=== PATIENT | female | born 1940 | race Caucasian/White ===

== ENCOUNTER 2016-12-07 08:41 | Outpatient (CLI) | payer MEDICARE ==
--- NOTE | 2016-12-09 10:08 | PET ---
NUCLEAR MEDICINE FDG PET CT: (Positron Emission Tomography) DATE: 12/07/16 HISTORY: 76-year-old female with lymphoma for restaging. COMPARISON: 03/21/15. TECHNIQUE: IV injection F-18 Fluorodeoxyglucose (FDG) dose: 14.0 mCi PET and attenuation-correction CT performed from skull base to proximal thighs. FINDINGS: SUV (standard uptake value) numbers given are maximum SUV's: Previously, the study was degraded because of much activity throughout multiple muscles of the body. There is significantly less muscle activity on the current PET scan compared to the previous one. T here is still muscle activity in certain regions. However, the current study is degraded by breathin g motion, especially of the intra-abdominal contents. The previously demonstrated hypermetabolic region in the spleen has resolved. Right adrenal adenoma is again noted. Mild cardiomegaly. There is a region of increased FDG localization in an infiltrate- like lesion in the subcutaneous superficial fat anterior to the right lower quadrant musculature, pr esumably representing a site of inflammation or infection. There are no hypermetabolic lymph nodes i n the neck, chest, abdomen, or pelvis. No suspicious hypermetabolic activity in other organs. IMPRESSION: 1. Interval resolution of the previously demonstrated hypermetabolic focus in the spleen. 2. No evidence of active lymphoma on the current study. VISHAL Treadwell POS: [facility]
== END 2016-12-07 08:42 | disposition home or self-care (01) ==
LOC: PET 08:41
PROVIDERS: ATTEND Internal Medicine Hematology & Oncology
DX: C82.90 Follicular lymphoma, unspecified, unspecified site (principal)
CPT/HCPCS: 78815; A9552

== ENCOUNTER 2017-02-12 15:09 | Outpatient (CLI) | payer MEDICARE ==
--- NOTE | 2017-02-12 17:17 | RAD ---
LUMBAR SPINE TWO VIEW 02/12/17 HISTORY: M46.46 discitis, unspecified. COMPARISON: None. FINDINGS: Mild dextroscoliosis of the lumbar spine. There is anterolisthesis of L4 over L5, grade I, approximat marion 7 mm. Moderate degenerative disc space disease throughout the lumbar spine. No acute fracture is appreciated. Chronic appearing end plate height loss at T12. Severe vascular calcification of the aorta. IMPRESSION: 1. Moderate to severe degenerative changes. 2. Grade I 7 mm anterolisthesis L4 over L5 due to facet arthropathy. 3. Extensive vascular calcifications of the aorta. POS: [facility]
--- NOTE | 2017-02-12 17:19 | RAD ---
THORACIC SPINE THREE VIEW 02/12/17 HISTORY: M46.46 discitis, unspecified. COMPARISON: None. FINDINGS: No acute fracture or malalignment of the thoracic spine. Central venous catheter is in place with tip at the SVC/right atrial junction. Multiple median sternotomy wires. Heart size is enlarged. IMPRESSION: No displaced compression fracture of the thoracic spine although the upper thoracic spine evaluation is limited. POS: [facility]
== END 2017-02-12 15:10 | disposition home or self-care (01) ==
LOC: TBSIIMAG 15:09
PROVIDERS: ATTEND Surgery
DX: M46.46 Discitis, unspecified, lumbar region (principal); M47.816 Spondylosis without myelopathy or radiculopathy, lumbar region; M43.16 Spondylolisthesis, lumbar region; I70.0 Atherosclerosis of aorta
CPT/HCPCS: 72072; 72100

== ENCOUNTER 2018-02-14 02:31 | Inpatient (IN) | payer MEDICARE ==
[2018-02-14 03:30] LABS: #Eosinphils 0.4 thou/uL (0.0-0.7); #Lymphocytes 0.9 thou/uL (1.20-3.40); #Monocytes 0.8 thou/uL (0.11-0.59); #Neutrophils 6.7 thou/uL (1.40-6.50); %Basophils 0.4 % (0.0-1.0); %Eosinophils 4.4 % (0.0-10.0); %Lymphocytes 10.4 % (21.0-51.0); %Monocytes 8.5 % (0.0-10.0); %Neutrophils 76.2 % (42.0-75.0); Hemoglobin 8.6 g/dL (12.0-16.0); Mean Corpuscular HGB CONC 33.1 g/dL (32.0-36.0); Mean Corpuscular Hemoglobin 31.5 pg (27.0-31.0); Mean Corpuscular Volume 95.3 fL (78.0-98.0); Mean Platelet Volume 8.5 fL (7.4-10.4); Platelet Count 220 thou/uL (130-400); RBC Distribution Width 14.1 % (11.5-14.5); Red Blood Cell (RBC) Count 2.74 mill/uL (4.20-5.40); White Blood Cell (WBC) Count 8.7 thou/uL (4.8-10.8)
[2018-02-14 03:45] LABS: Prothrombin Time 41.5 SEC (12.0-14.7)
[2018-02-14 03:46] LABS: PTT 65.5 SEC (22.9-36.1)
[2018-02-14 03:51] LABS: INR-International Normal Ratio 4.3
[2018-02-14 03:52] LABS: ALT (SGPT) 22 U/L (8-55); AST (SGOT) 31 U/L (5-34); Albumin 3.9 g/dL (3.4-4.8); Alkaline Phosphatase 111 U/L (40-150); Anion Gap 15 mmol/L (10-20); BUN (Urea Nitrogen) 59 mg/dL (9.8-20.1); Bilirubin, Total 0.3 mg/dL (0.2-1.2); CK (CPK) 390 U/L (29-168); Calc. Creatinine Clearance 0 mL/min (70-130); Calcium 8.9 mg/dL (7.8-10.44); Carbon Dioxide 27 mmol/L (23-31); Chloride 101 mmol/L (98-107); Estimated GFR-MDRD 19; Globulin 2.5 g/dL (2.4-3.5); Glucose 115 mg/dL (83-110); Magnesium 2.1 mg/dL (1.6-2.6); Potassium 3.6 mmol/L (3.5-5.1); Protein, Total 6.4 g/dL (6.0-8.3); Sodium 139 mmol/L (136-145)
[2018-02-14 04:11] LABS: CKMB 4.9 ng/mL (0-6.6)
[2018-02-14] MEDS ORDERED: Furosemide 40 MG/4 ML VIAL ONE (04:47)
[2018-02-14 05:33] LABS: Bilirubin Negative (Negative); Blood, Urine Negative (Negative); Clarity CLEAR (Clear); Glucose, Urine (Dipstick) Negative (Negative); Leukocyte Trace (Negative); Nitrite Negative (Negative); Protein, Urine (Dipstick) Negative (Neg-Trace); Specific Gravity, Urine 1.005 (1.002-1.036); Urobilinogen 0.2 mg/dL (0.2-1.0)
[2018-02-14 05:36] LABS: Bacteria/HPF None Seen HPF (None Seen); Hyaline Casts/LPF 0-3 HYALINE CAST LPF (0-3 Hyaline); RBC/HPF None Seen HPF (0-3); Squamous Epithelial None Seen HPF (0-3); WBC/HPF None Seen HPF (0-3)
[2018-02-14] MEDS ORDERED: Acetaminophen 325 MG TAB PO PRN ×2 (06:10→11:33)
[2018-02-14] MEDS ORDERED: Ondansetron ODT 4 MG TAB SL PRN (06:10)
[2018-02-14] MEDS ORDERED: Ondansetron PF 4 MG/2 ML Vial IVP PRN (06:10)
[2018-02-14 06:24] VITALS: BMI 39.6
[2018-02-14 06:54] LABS: Troponin I 0.042 ng/mL (< 0.028)
--- NOTE | 2018-02-14 09:54 | RAD ---
PORTABLE UPRIGHT FRONTAL CHEST RADIOGRAPH: 02/14/2018 HISTORY: Congestive heart failure. COMPARISON: 12/25/2017 FINDINGS: A metallic structure overlies the cardiac valve, and midline sternotomy wires are noted, stable. Mil d pulmonary vascular congestion/interstitial prominence. No pneumothorax, pleural fluid, lobar conso lidation, or alveolar edema. IMPRESSION: Mild interstitial prominence with no focal consolidation or alveolar edema. POS: YESSICA
[2018-02-14 10:08] LABS: Troponin I 0.038 ng/mL (< 0.028)
[2018-02-14] MEDS ORDERED: Guaifenesin DM 100-10/5 ML UDCUP PO PRN (11:33)
[2018-02-14] MEDS ORDERED: Senokot S 8.6-50 MG TAB PO PRN (11:33)
[2018-02-14] MEDS: Levofloxacin 750 mg/D5W 500 MG in Premix Bag 1 BAG IVPB SCH (12:58)
[2018-02-14] MEDS ORDERED: Carvedilol 3.125 MG TAB PO SCH (13:15)
--- NOTE | 2018-02-14 14:07 | HP ---
REASON FOR ADMISSION: COPD exacerbation, possible CHF exacerbation, acute kidney injury, demand ischemia. HISTORY OF PRESENTING ILLNESS: The patient gives history of having shortness of breath, cough, and cough with altered expectoration from last three days. She called Dr. Silvestre on , that is her risk control officer. She normally takes torsemide 20 mg daily and was asked to take 80 mg daily. She took this for 2 days with no relief. The patient was getting concerned as she could not lie down at home without getting short of breath. No complaints of chest pain, palpitations, or PND. She has not had any fever at home. The patient has known history of COPD and has been taking multiple nebulizations at home with no relief. PAST MEDICAL AND SURGICAL HISTORY: History of hypertension, COPD, dyslipidemia. History of nephrectomy on the right, history of oophorectomy, right knee surgery, right wrist surgery, mitral valve replacement with a mechanical valve, history of MediPort placement on the right with removal, insomnia, obesity. CURRENT MEDICATIONS: The patient is on, 1. Aspirin 81 mg p.o. daily. 2. Atorvastatin 40 mg p.o. at bedtime. 3. Calcium with vitamin D one tab once daily. 4. Coreg 3.125 mg p.o. twice daily. 5. [place]-3 fatty acid one capsule p.o. at bedtime. 6. Protonix 40 mg p.o. daily. 7. Pramipexole 0.5 mg p.o. at bedtime. 8. Prazosin 1 mg p.o. at bedtime. 9. Seroquel 300 mg p.o. at bedtime. 10. Zoloft 25 mg daily. 11. Torsemide 20 mg daily, but has been taking 80 mg daily for the last 2 days. 12. Coumadin 5 mg daily. 13. Vitamin C 500 mg p.o. daily. 14. Ferrous sulfate 325 mg p.o. twice daily. ALLERGIES: ALLERGIC TO CODEINE. PERSONAL HISTORY: Does not abuse alcohol or drugs. Smoked for 57 years, quit in 2009. The patient says she has 57% lung capacity left at present. She follows up with Dr. Castellon. She lives alone. FAMILY HISTORY: Mother at the age of 86 years from old age and natural causes. Father at the age of 57 years. He has had history of multiple sclerosis. Code status is full. Power of assistant prosecuting attorney is her son, Mr. Lopez. REVIEW OF SYSTEMS: CONSTITUTIONAL: Negative for weight loss or gain, ability to conduct usual activities. SKIN: Negative for rash, itching. EYES: Negative for double vision, pain. ENT/MOUTH: Negative for nose bleeding, neck stiffness, pain, tenderness. CARDIOVASCULAR: Negative for palpitations, dyspnea on exertion, orthopnea. RESPIRATORY: Negative for shortness of breath, wheezing, cough, hemoptysis, fever or night sweats. GASTROINTESTINAL: Negative for poor appetite, abdominal pain, heartburn, nausea, vomiting, constipation, or diarrhea. GENITOURINARY: Negative for urgency, frequency, dysuria, nocturia. MUSCULOSKELETAL: Negative for pain, swelling. NEUROLOGIC/PSYCHIATRIC: Negative for anxiety, depression. ALLERGY/IMMUNOLOGIC: Negative for skin rash, bleeding tendency. PHYSICAL EXAMINATION: GENERAL: The patient is a 77-year-old female, who is currently not in any acute distress. VITAL SIGNS: Blood pressure 124/60, pulse 84 per minute, respiratory rate 20 per minute, temperature 98.1 degrees Fahrenheit, saturating 96% on room air. NECK: Supple. No elevated JVD. HEENT: Eyes, extraocular muscles intact. Pupils are reacting to light. Oral cavity, mucous membranes are moist. No exudates or congestion. CARDIOVASCULAR: S1, S2 heard. Regular rhythm. RESPIRATORY: Air entry 1+ bilateral. Scattered wheezes plus bilateral rales plus in the infrascapular area. ABDOMEN: Soft. Bowel sounds heard. No tenderness, rigidity, or guarding. EXTREMITIES: There is peripheral edema. No calf tenderness. VASCULAR: Peripheral pulses 1+ bilateral. No ischemic ulcerations or gangrene. CENTRAL NERVOUS SYSTEM: No gross focal deficits noted. The patient is alert, awake, and oriented. PSYCHIATRIC: [facility] psychiatric system. The patient's mood is euthymic. No hallucinations or delusions. DIAGNOSTIC DATA: EKG done shows normal sinus rhythm at 94 beats per minute. Chest x-ray done shows mild pulmonary vascular congestion. LABORATORY DATA: White count of 8.7, H and H 8.6 and 26, platelet count 220 with 76% neutrophils. PT and INR 41 and 4.3, PTT 65. BUN 59, creatinine 2.4. Serum bicarb 27, serum glucose 115. Liver enzymes within normal limits. Troponin I is indeterminate, peaking up to 0.04. CK-MB 4.9. BNP is 205. CLINICAL IMPRESSION AND PLAN: The patient will be admitted to telemetry for acute chronic obstructive pulmonary exacerbation, acute on chronic congestive heart failure exacerbation likely diastolic dysfunction. She also has acute kidney injury and will be closely monitored with diuresis now. She will be on Lasix 40 mg IV q.12 along with Levaquin, Solu-Medrol, and DuoNeb's. We will continue her aspirin, Lipitor, Coreg, prazosin, pramipexole, and Seroquel as before. Echo with 2D Doppler for LV function will be obtained. Urine and blood cultures will be obtained as well. We will continue to closely monitor her on telemetry. Job ID: [id number]
[2018-02-14] MEDS: Furosemide 40 MG/4 ML VIAL SLOW IVP SCH (15:10)
[2018-02-14] MEDS ORDERED: ALPRAZolam 0.25 MG TAB PO SCH (19:15)
[2018-02-14] MEDS: Fish Oil 1,000 MG CAP PO SCH (20:41)
[2018-02-14] MEDS: Pramipexole Di-HCl 0.25 MG TAB PO SCH (20:41)
[2018-02-14] MEDS: Multivitamin W/ Minerals 1 TAB PO SCH (20:41)
[2018-02-14] MEDS: Ferrous Sulfate 325 MG TAB PO SCH (20:41)
[2018-02-14] MEDS: Prazosin HCl 1 MG CAP PO SCH (20:42)
[2018-02-14] MEDS: Carvedilol 3.125 MG TAB PO SCH (20:42)
[2018-02-14] MEDS: Atorvastatin Calcium 40 MG TAB PO SCH (20:42)
[2018-02-14] MEDS ORDERED: MV MN PO SCH (21:00)
[2018-02-14] MEDS ORDERED: [UNRECOGNIZED DRUG - OTHER] PO SCH (21:00)
[2018-02-14] MEDS ORDERED: FOLIC ACID PO SCH (21:00)
[2018-02-14] MEDS ORDERED: CALCIUM PO SCH (21:00)
[2018-02-14] MEDS ORDERED: PRAMIPEXOLE DI HCL 0.5 MG PO SCH (21:00)
[2018-02-14] MEDS ORDERED: Fish Oil 1,000 MG CAP PO SCH (21:00)
[2018-02-14] MEDS ORDERED: VIT K PO SCH (21:00)
[2018-02-14] MEDS ORDERED: Escitalopram Oxalate 20 mg Tablet PO SCH (21:00)
[2018-02-15] MEDS: Furosemide 40 MG/4 ML VIAL SLOW IVP SCH ×2 (04:57→14:32)
[2018-02-15 05:52] LABS: #Lymphocytes 0.5 thou/uL (1.20-3.40); #Monocytes 0.1 thou/uL (0.11-0.59); #Neutrophils 7.5 thou/uL (1.40-6.50); %Lymphocytes 6.7 % (21.0-51.0); %Monocytes 1.4 % (0.0-10.0); %Neutrophils 91.9 % (42.0-75.0); Hemoglobin 8.5 g/dL (12.0-16.0); Mean Corpuscular HGB CONC 32.6 g/dL (32.0-36.0); Mean Corpuscular Volume 94.9 fL (78.0-98.0); Mean Platelet Volume 9.1 fL (7.4-10.4); Platelet Count 227 thou/uL (130-400); RBC Distribution Width 14.2 % (11.5-14.5); Red Blood Cell (RBC) Count 2.75 mill/uL (4.20-5.40); White Blood Cell (WBC) Count 8.1 thou/uL (4.8-10.8)
[2018-02-15 05:54] LABS: INR-International Normal Ratio 2.4; Prothrombin Time 26.3 SEC (12.0-14.7)
[2018-02-15 05:55] LABS: PTT 51.2 SEC (22.9-36.1)
[2018-02-15 06:09] LABS: Anion Gap 15 mmol/L (10-20); BUN (Urea Nitrogen) 59 mg/dL (9.8-20.1); Calc. Creatinine Clearance 35 mL/min (70-130); Calcium 9.3 mg/dL (7.8-10.44); Carbon Dioxide 25 mmol/L (23-31); Chloride 100 mmol/L (98-107); Estimated GFR-MDRD 22; Glucose 165 mg/dL (83-110); Potassium 3.9 mmol/L (3.5-5.1); Sodium 136 mmol/L (136-145)
[2018-02-15] MEDS: Ascorbic Acid 500 mg Chewable Tablet PO SCH (09:21)
[2018-02-15] MEDS: Carvedilol 3.125 MG TAB PO SCH ×2 (09:21→21:55)
[2018-02-15] MEDS: Ferrous Sulfate 325 MG TAB PO SCH ×2 (09:21→21:57)
[2018-02-15] MEDS: PROVENTIL INHALER 6.7 G (200 INHALATIONS) INH SCH ×3 (10:41→22:20)
[2018-02-15] MEDS: Levofloxacin 750 mg/D5W 500 MG in Premix Bag 1 BAG IVPB SCH (11:48)
--- NOTE | 2018-02-15 12:40 | PDOC.PN ---
- Subjective Encounter Start Date: 02/15/18 Encounter Start Time: 09:45 Subjective: feels better, wants to go home tomorrow -: is amb in room - Objective Resuscitation Status - Order Detail: 02/14/18 11:27 Resuscitation Status Routine Resuscitation Status: FULL: Full Resuscitation Discussed with: ELENA clancy son Mr.Jeffery RICKS Reviewed: Yes Vital Signs & Weight: Vital Signs (12 hours) Temp Pulse Pulse Pulse Resp BP BP 02/15/18 11:44 97.9 F 90 20 02/15/18 10:41 93 20 02/15/18 09:50 92 110 H 129/58 L 140/107 H 02/15/18 07:27 97.8 F 90 19 02/15/18 04:30 97.8 F 86 18 BP Pulse Ox Pulse Ox Pulse Ox 02/15/18 11:44 116/99 H 96 02/15/18 10:41 02/15/18 09:50 99 98 02/15/18 07:27 129/88 94 L 02/15/18 04:30 123/56 L 95 Weight Admit Weight 231 lb 4.8 oz Weight 232 lb 4.8 oz I&O: 02/14/18 02/15/18 02/16/18 06:59 06:59 06:59 Intake Total 960 Output Total 550 2400 Balance -550 -1440 Result Diagrams: 02/15/18 04:25 02/15/18 04:25 Phys Exam - Physical Examination HEENT: PERRLA, moist MMs Neck: no JVD, supple Respiratory: no rales wheezes+ Cardiovascular: RRR, no significant murmur Gastrointestinal: soft, non-tender, positive bowel sounds Musculoskeletal: pulses present, edema present Neurological: non-focal, moves all 4 limbs Psychiatric: normal affect, A&O x 3 Dx/Plan (1) Acute exacerbation of CHF (congestive heart failure) Code(s): I50.9 - HEART FAILURE, UNSPECIFIED Status: Acute Qualifiers: Heart failure type: systolic Qualified Code(s): I50.23 - Acute on chronic systolic (congestive) heart failure Comment: ef of 45%, class C (2) COPD exacerbation Code(s): J44.1 - CHRONIC OBSTRUCTIVE PULMONARY DISEASE W (ACUTE) EXACERBATION Status: Acute (3) CHERIE (acute kidney injury) Code(s): N17.9 - ACUTE KIDNEY FAILURE, UNSPECIFIED Status: Acute (4) CAD (coronary artery disease) Code(s): I25.10 - ATHSCL HEART DISEASE OF [place] CORONARY ARTERY W/O ANG PCTRS Status: Chronic Qualifiers: Coronary Disease-Associated Artery/Lesion type: [place] artery [place] vs. transplanted heart: [place] heart Associated angina: without angina Qualified Code(s): I25.10 - Atherosclerotic heart disease of [place] coronary artery without angina pectoris (5) H/O unilateral nephrectomy Code(s): Z90.5 - ACQUIRED ABSENCE OF KIDNEY Status: Chronic Comment: right (6) Dyslipidemia Code(s): E78.5 - HYPERLIPIDEMIA, UNSPECIFIED Status: Chronic (7) CKD (chronic kidney disease) Code(s): N18.9 - CHRONIC KIDNEY DISEASE, UNSPECIFIED Status: Chronic Qualifiers: Chronic kidney disease stage: stage 3 (moderate) Qualified Code(s): N18.3 - Chronic kidney disease, stage 3 (moderate) Comment: stable (8) H/O mitral valve replacement with mechanical valve Code(s): Z95.2 - PRESENCE OF PROSTHETIC HEART VALVE Status: Chronic Comment : continue anticoagulation, target INR 2.5-3.5 - Plan diuresing well -: to continue steroids, inhaler per pt choice, levaquin -: asp, coreg, lipitor, start coumadin from evening -: renal function holding up -: to amb as tolerated * . Review of Systems - Medications/Allergies Allergies/Adverse Reactions: Allergies Allergy/AdvReac Type Severity Reaction Status Date / Time codeine Allergy Verified 02/14/18 06:28 Medications: Current Medications Acetaminophen (Tylenol) 650 mg PO Q4H PRN PRN Reason: Headache/Fever/Mild Pain (1-3) Albuterol Sulfate (Proventil Hfa) 2 puff INH [id number] LISA Last Admin: 02/15/18 10:41 Dose: 2 puff Albuterol/Ipratropium (Duoneb) 3 ml NEB Q6H PRN PRN Reason: SOB Last Admin: 02/14/18 10:06 Dose: 3 ml Ascorbic Acid (Vitamin C) 500 mg PO DAILY LISA Last Admin: 02/15/18 09:21 Dose: 500 mg Aspirin (Aspirin Chewable) 81 mg PO DAILY LISA Last Admin: 02/15/18 09:21 Dose: 81 mg Atorvastatin Calcium (Lipitor) 40 mg PO [facility] Last Admin: 02/14/18 20:42 Dose: 40 mg Carvedilol (Coreg) 3.125 mg PO BID [facility] Last Admin: 02/15/18 09:21 Dose: 3.125 mg Ferrous Sulfate (Feosol) 325 mg PO BID [facility] Last Admin: 02/15/18 09:21 Dose: 325 mg Fish Oil (Fish Oil) 1,000 mg PO [facility] Last Admin: 02/14/18 20:41 Dose: 1,000 mg Furosemide (Lasix) 40 mg SLOW IVP 0600,1400 [facility] Last Admin: 02/15/18 04:57 Dose: 40 mg Guaifenesin/Dextromethorphan (Robitussin Dm) 15 ml PO Q4H PRN PRN Reason: Cough Levofloxacin 500 mg/ Device 100 mls @ 100 mls/hr IVPB Q24HR [facility] Last Admin: 02/15/18 11:48 Dose: 100 mls Iron/Minerals/Multivitamins (Theragran M) 1 tab PO [facility] Last Admin: 02/14/18 20:41 Dose: 1 tab Methylprednisolone Sodium Succinate (Solu-Medrol) 40 mg IVP Q6HR [facility] Last Admin: 02/15/18 11:48 Dose: 40 mg Pantoprazole Sodium (Protonix) 40 mg PO QAM [facility] Last Admin: 02/15/18 09:21 Dose: 40 mg Pramipexole Dihydrochloride (Mirapex) 0.5 mg PO [facility] Last Admin: 02/14/18 20:41 Dose: 0.5 mg Prazosin HCl (Minipress) 1 mg PO [facility] Last Admin: 02/14/18 20:42 Dose: 1 mg Quetiapine Fumarate (Seroquel) 300 mg PO [facility] Last Admin: 02/14/18 20:41 Dose: 300 mg Senna/Docusate Sodium (Senokot S) 2 tab PO BID PRN PRN Reason: Constipation Sertraline HCl (Zoloft) 25 mg PO DAILY [facility] Last Admin: 02/15/18 09:21 Dose: 25 mg Sodium Chloride (Flush - Normal Saline) 10 ml IVF Q12HR [facility] Last Admin: 02/15/18 09:32 Dose: 10 ml Sodium Chloride (Flush - Normal Saline) 10 ml IVF PRN PRN PRN Reason: Saline Flush Warfarin Sodium (Coumadin) 5 mg PO 1700 LISA
[2018-02-15] MEDS ORDERED: Warfarin Sodium 5 MG TAB PO SCH (17:00)
[2018-02-15] MEDS ORDERED: ALPRAZolam 0.5 MG TAB PO SCH (21:00)
[2018-02-15] MEDS: ALPRAZolam 0.25 MG TAB PO SCH (21:54)
[2018-02-15] MEDS: Prazosin HCl 1 MG CAP PO SCH (21:55)
[2018-02-15] MEDS: Multivitamin W/ Minerals 1 TAB PO SCH (21:56)
[2018-02-15] MEDS: Fish Oil 1,000 MG CAP PO SCH (21:56)
[2018-02-15] MEDS: Atorvastatin Calcium 40 MG TAB PO SCH (21:57)
[2018-02-15] MEDS: Pramipexole Di-HCl 0.25 MG TAB PO SCH (21:57)
[2018-02-16 05:32] LABS: INR-International Normal Ratio 1.9; Prothrombin Time 21.7 SEC (12.0-14.7)
[2018-02-16 05:33] LABS: PTT 40.4 SEC (22.9-36.1)
[2018-02-16 05:41] LABS: Anion Gap 16 mmol/L (10-20); BUN (Urea Nitrogen) 66 mg/dL (9.8-20.1); Calc. Creatinine Clearance 29 mL/min (70-130); Calcium 9.3 mg/dL (7.8-10.44); Carbon Dioxide 24 mmol/L (23-31); Chloride 100 mmol/L (98-107); Estimated GFR-MDRD 17; Glucose 175 mg/dL (83-110); Potassium 4.1 mmol/L (3.5-5.1); Sodium 136 mmol/L (136-145)
[2018-02-16] MEDS: Furosemide 40 MG/4 ML VIAL SLOW IVP SCH (05:58)
[2018-02-16] MEDS: PROVENTIL INHALER 6.7 G (200 INHALATIONS) INH SCH ×2 (06:06→11:34)
[2018-02-16 07:52] LABS: Hemoglobin 8.5 g/dL (12.0-16.0); Platelet Count 229 thou/uL (130-400)
[2018-02-16 08:25] VITALS: TEMP 98.7
[2018-02-16] MEDS: Ferrous Sulfate 325 MG TAB PO SCH (08:34)
[2018-02-16] MEDS: Carvedilol 3.125 MG TAB PO SCH (08:34)
[2018-02-16] MEDS: Ascorbic Acid 500 mg Chewable Tablet PO SCH (08:34)
--- NOTE | 2018-02-16 10:43 | PDOC.PN ---
- Subjective Encounter Start Date: 02/16/18 Encounter Start Time: 09:45 Subjective: no sob, feels better -: wants to go home - Objective Resuscitation Status - Order Detail: 02/14/18 11:27 Resuscitation Status Routine Resuscitation Status: FULL: Full Resuscitation Discussed with: ELENA is son Mr.Jeffery RICKS Reviewed: Yes Vital Signs & Weight: Vital Signs (12 hours) Temp Pulse Resp BP BP Pulse Ox 02/16/18 08:25 98.7 F 97 18 139/56 L 94 L 02/16/18 06:06 85 16 96 02/16/18 04:20 99.3 F 96 19 118/56 L 96 02/16/18 00:00 99.5 F 98 18 108/55 L 96 Weight Admit Weight 231 lb 4.8 oz Weight 231 lb 1.6 oz I&O: 02/15/18 02/16/18 02/17/18 06:59 06:59 06:59 Intake Total 960 786 Output Total 2400 Balance -1440 786 Result Diagrams: 02/16/18 07:33 02/16/18 04:36 Phys Exam - Physical Examination HEENT: PERRLA, moist MMs Neck: no JVD, supple Respiratory: no wheezing, no rales Cardiovascular: RRR, no significant murmur Gastrointestinal: soft, non-tender, positive bowel sounds Musculoskeletal: no edema, pulses present Neurological: non-focal, moves all 4 limbs Psychiatric: normal affect, A&O x 3 Dx/Plan (1) Acute exacerbation of CHF (congestive heart failure) Code(s): I50.9 - HEART FAILURE, UNSPECIFIED Status: Acute Qualifiers: Heart failure type: systolic Qualified Code(s): I50.23 - Acute on chronic systolic (congestive) heart failure Comment: ef of 45%, class C (2) COPD exacerbation Code(s): J44.1 - CHRONIC OBSTRUCTIVE PULMONARY DISEASE W (ACUTE) EXACERBATION Status: Acute (3) CHERIE (acute kidney injury) Code(s): N17.9 - ACUTE KIDNEY FAILURE, UNSPECIFIED Status: Acute (4) CAD (coronary artery disease) Code(s): I25.10 - ATHSCL HEART DISEASE OF [place] CORONARY ARTERY W/O ANG PCTRS Status: Chronic Qualifiers: Coronary Disease-Associated Artery/Lesion type: [place] artery [place] vs. transplanted heart: [place] heart Associated angina: without angina Qualified Code(s): I25.10 - Atherosclerotic heart disease of [place] coronary artery without angina pectoris (5) H/O unilateral nephrectomy Code(s): Z90.5 - ACQUIRED ABSENCE OF KIDNEY Status: Chronic Comment: right (6) Dyslipidemia Code(s): E78.5 - HYPERLIPIDEMIA, UNSPECIFIED Status: Chronic (7) CKD (chronic kidney disease) Code(s): N18.9 - CHRONIC KIDNEY DISEASE, UNSPECIFIED Status: Chronic Qualifiers: Chronic kidney disease stage: stage 3 (moderate) Qualified Code(s): N18.3 - Chronic kidney disease, stage 3 (moderate) Comment: stable (8) H/O mitral valve replacement with mechanical valve Code(s): Z95.2 - PRESENCE OF PROSTHETIC HEART VALVE Status: Chronic Comment : continue anticoagulation, target INR 2.5-3.5 - Plan d/w , his office will call her in 1 week for appt -: may dc home due to holidays and pt wishing to be home -: will have lab check when she sees who is aware of pt from prior f/u -: inr is 1.9, h/h low but stable -: meds reconciled for home use * .
[2018-02-16] MEDS: ALPRAZolam 0.25 MG TAB PO SCH (10:44)
[2018-02-16] MEDS ORDERED: Adacel (T-DAP) 0.5 ML SYRINGE IM ONE (11:00)
[2018-02-16 11:47] VITALS: BP 136/56
--- NOTE | 2018-02-16 14:43 | DIS ---
DATE OF ADMISSION: 02/14/2018 DATE OF DISCHARGE: 02/16/2018 DISCHARGE DISPOSITION: Home. PRIMARY DISCHARGE DIAGNOSES: Acute chronic obstructive pulmonary disease exacerbation; acute congestive heart failure exacerbation with mild systolic dysfunction and diastolic dysfunction with ejection fraction of 45%; acute kidney injury, which got worsened with diuresis, likely chronic kidney disease, stage 2 to 3 at baseline; coronary artery disease; history of prior right nephrectomy; dyslipidemia; mechanical mitral valve, on Coumadin. PROCEDURES DONE DURING HOSPITALIZATION: The patient had a chest x-ray done on the day of admission, which showed pulmonary vascular congestion. Echo with 2D Doppler showed ejection fraction of 40% to 45%, normally functioning mechanical valve in mitral position was seen. Blood cultures x2, no growth. Urine culture, no growth. H and H 8.5 and 26, MCV 94, platelet count 229. Discharge INR 1.9, on admission was 4.3. Discharge BUN and creatinine are 66 and 2.6 with serum bicarb of 24. Troponin I indeterminate peaking up to 0.04, CK-MB 4.9, TSH 1.1. Admitting BUN and creatinine were 59 and 2.4. BNP 205. DISCHARGE MEDICATIONS: 1. Aspirin 81 mg p.o. daily. 2. Lipitor 40 mg p.o. at bedtime. 3. Coreg 3.125 mg twice daily. 4. Protonix 40 mg p.o. daily. 5. Pramipexole 0.5 mg p.o. at bedtime. 6. Prazosin 1 mg p.o. at bedtime. 7. Seroquel 300 mg p.o. at bedtime. 8. Sertraline 25 mg p.o. daily. 9. Demadex 20 mg daily. 10. Coumadin 5 mg p.o. daily. 11. Albuterol inhaler q.6 hourly p.r.n. 12. Levaquin 250 mg p.o. daily for another three days. 13. Prednisone taper starting at 10 mg twice daily over the course of six days. 14. Ferrous sulfate 325 mg p.o. twice daily. ALLERGIES: ALLERGIC TO CODEINE. DISCHARGE PLAN: The patient to follow up with Dr. Meng in 1 week and primary care physician in 1 week. BRIEF COURSE DURING HOSPITALIZATION: The patient initially came in with complaints of shortness of breath and wheezing. She was essentially admitted for acute COPD exacerbation and acute CHF exacerbation. Also, the patient had mild coagulopathy with her being on Coumadin for mechanical mitral valve, and her Coumadin was held for 24 hours and restarted. She likely has known history of CKD stage 2, which got worse with diuresis. The patient has prior history of right nephrectomy. She was on steroids, Levaquin, and Lasix. The patient diuresed well during her stay here. She has been able to ambulate in the room. She is wanting to go home for [place] today. I have discussed her lab findings with Dr. Meng, who will be following up with the patient in 1 week to check her renal status. She was given prescription for 3 days of Levaquin, prednisone taper, and the patient needs to continue her home dose of Demadex. She has otherwise remained hemodynamically stable and will be shortly discharged home. Please see a [id number] [facility] for the day of discharge. Job ID: [id number]
--- NOTE | 2018-02-20 15:11 | EKG ---
Test Reason : Blood Pressure : / mmHG Vent. Rate : 094 BPM Atrial Rate : 094 BPM P-R Int : 206 ms QRS Dur : 088 ms QT Int : 390 ms P-R-T Axes : 094 -40 066 degrees QTc Int : 487 ms Normal sinus rhythm Left axis deviation Abnormal ECG Confirmed by KOLTON CANNON D.O. ([id number]), purchase request editor FAVIAN CARRILLO ([id number]) on 02/20/2018 3:11:08 PM Referred By: Confirmed By:KOLTON CANNON D.O.
== END 2018-02-16 11:57 | disposition home or self-care (01) | DRG 291 ==
LOC: ERS 02:31 → 2SW 04:45 → OBSVTOIN 11:33 → 2NO 14:12
PROVIDERS: ADMIT Internal Medicine; ATTEND Internal Medicine
DX: I13.0 Hypertensive heart and chronic kidney disease with heart failure and stage 1 through stage 4 chronic kidney disease, or unspecified chronic kidney disease (principal); I50.43 Acute on chronic combined systolic (congestive) and diastolic (congestive) heart failure; J44.1 Chronic obstructive pulmonary disease with (acute) exacerbation; N17.9 Acute kidney failure, unspecified; N18.3 Chronic kidney disease, stage 3 (moderate); R79.1 Abnormal coagulation profile; I25.10 Atherosclerotic heart disease of native coronary artery without angina pectoris; E78.5 Hyperlipidemia, unspecified; E66.9 Obesity, unspecified; G47.00 Insomnia, unspecified; Z79.82 Long term (current) use of aspirin; Z95.2 Presence of prosthetic heart valve; Z79.899 Other long term (current) drug therapy; Z88.5 Allergy status to narcotic agent; Z98.890 Other specified postprocedural states; Z90.5 Acquired absence of kidney; Z79.01 Long term (current) use of anticoagulants; Z68.39 Body mass index [BMI] 39.0-39.9, adult; Z87.891 Personal history of nicotine dependence; Z90.710 Acquired absence of both cervix and uterus
CPT/HCPCS: 36415; 71045; 80048; 80053; 81003; 81015; 82550; 82553; 83735; 83880; 84443; 84484; 85014; 85018; 85025; 85049; 85610; 85730; 86850; 86900; 86901; 87040; 87086; 90471; 90662; 90715; 93005; 93306; 93798; 94640; 96374; G0008; J1940; J1956; J2920; J7620

== ENCOUNTER 2018-04-08 01:50 | Inpatient (IN) | payer MEDICARE ==
[2018-04-08 02:27] LABS: #Eosinphils 0.3 thou/uL (0.0-0.7); #Lymphocytes 0.8 thou/uL (1.20-3.40); #Monocytes 0.7 thou/uL (0.11-0.59); #Neutrophils 6.3 thou/uL (1.40-6.50); %Basophils 0.5 % (0.0-1.0); %Eosinophils 3.3 % (0.0-10.0); %Lymphocytes 10.4 % (21.0-51.0); %Monocytes 8.3 % (0.0-10.0); %Neutrophils 77.6 % (42.0-75.0); Hemoglobin 11.4 g/dL (12.0-16.0); Mean Corpuscular HGB CONC 32.4 g/dL (32.0-36.0); Mean Corpuscular Hemoglobin 30.5 pg (27.0-31.0); Mean Corpuscular Volume 94.1 fL (78.0-98.0); Platelet Count 205 thou/uL (130-400); RBC Distribution Width 14.2 % (11.5-14.5); Red Blood Cell (RBC) Count 3.74 mill/uL (4.20-5.40); White Blood Cell (WBC) Count 8.1 thou/uL (4.8-10.8)
[2018-04-08 02:49] LABS: ALT (SGPT) 22 U/L (8-55); AST (SGOT) 28 U/L (5-34); Albumin 4.1 g/dL (3.4-4.8); Alkaline Phosphatase 110 U/L (40-150); Anion Gap 14 mmol/L (10-20); BUN (Urea Nitrogen) 42 mg/dL (9.8-20.1); Bilirubin, Total 0.4 mg/dL (0.2-1.2); CRP (Inflammatory) Less than 0.50 mg/dL (= or < 0.5); Calc. Creatinine Clearance 0 mL/min (70-130); Calcium 9.5 mg/dL (7.8-10.44); Carbon Dioxide 27 mmol/L (23-31); Chloride 104 mmol/L (98-107); Estimated GFR-MDRD 19; Globulin 2.8 g/dL (2.4-3.5); Glucose 156 mg/dL (83-110); Potassium 4.1 mmol/L (3.5-5.1); Protein, Total 6.9 g/dL (6.0-8.3); Sodium 141 mmol/L (136-145)
[2018-04-08] MEDS ORDERED: Acetaminophen 500 MG TAB ONE (03:14)
[2018-04-08] MEDS ORDERED: Ondansetron PF 4 MG/2 ML Vial IVP PRN (07:02)
[2018-04-08] MEDS ORDERED: Ondansetron ODT 4 MG TAB SL PRN (07:02)
[2018-04-08] MEDS ORDERED: Sodium Chloride 0.9% 1,000 ML IV SCH (07:02)
[2018-04-08] MEDS ORDERED: Acetaminophen 325 MG TAB PO PRN (07:02)
--- NOTE | 2018-04-08 08:13 | ULT ---
PRELIMINARY REPORT/[facility]/EMERGENTY AFTER-HOURS PROCEDURE US Duplex Right Lower Extremity Veins, Limited EXAM DATE/TIME: 04/08/2018 2:27 AM CLINICAL HISTORY: 77 years old, female; Pain and signs and symptoms; Other: Redness; Leg, lower; Right TECHNIQUE: Real-time Duplex ultrasound of the Right Lower Extremity with 2-D carver scale, color Doppler flow and spectral waveform analysis. Limited exam was focused on the right lower extremity veins. COMPARISON: No relevant prior studies available. FINDINGS: Right deep veins: Unremarkable. The common femoral, femoral, proximal profunda femoral and popliteal veins are patent without thrombus. Normal Doppler waveforms. Normal compressibility and/or augmentati on response. Right superficial veins: Unremarkable. Saphenofemoral junction is patent without thrombus. Soft tissues: Unremarkable. IMPRESSION: No acute findings. No evidence of deep vein thrombosis. Thank you for allowing us to participate in the care of your patient. Dictated and Authenticated by: Johnathon Payne MD 04/08/2018 3:52 AM Central Time ([place] & [place]) FINAL REPORT [facility] DUPLEX SONOGRAM RIGHT LOWER EXTREMITY: DATE: 04/08/2018. TIME: Performed on an emergency basis at 0242 hours. HISTORY: Right leg pain and edema. FINDINGS: Agree with the preliminary report by Dr. Payne from [facility]. No sonographic evidence of D VT within the right lower extremity. Good color and spectral Doppler flow. POS: [facility]
[2018-04-08 09:29] VITALS: BMI 40.0
[2018-04-08] MEDS ORDERED: Senokot S 8.6-50 MG TAB PO PRN (10:08)
[2018-04-08] MEDS ORDERED: Guaifenesin DM 100-10/5 ML UDCUP PO PRN (10:08)
[2018-04-08 10:45] LABS: INR-International Normal Ratio 3.5; PTT 60.6 SEC (22.9-36.1); Prothrombin Time 35.3 SEC (12.0-14.7)
--- NOTE | 2018-04-08 14:26 | HP ---
REASON FOR ADMISSION: Acute kidney injury on top of chronic kidney disease stage 3, mild coagulopathy, shortness of breath for evaluation. HISTORY OF PRESENTING ILLNESS: The patient gives history of having increasing edema in both lower extremities and coughing spells which are mostly dry. She kind of feels like a hair ball in her throat, which she mentions it is like she cannot get her sputum up. She has been taking Mucinex off and on, which is helping her to bring it up. No altered phlegm. No fever. The patient states she took 7 days of Levaquin, and Keflex again for 2 weeks in February, which was prescribed by Dr. Kenneth Ferreira, her oncologist. She does mention that her lower extremities have swollen and it kind of interiano in both lower extremities. No complaints of fever at home, but had 99.3 degrees on arrival here. No complaints of chest pain, palpitation or PND. PAST MEDICAL AND SURGICAL HISTORY: History of chronic kidney disease stage 3, hypertension, COPD, dyslipidemia, history of right nephrectomy, oophorectomy, right knee surgery, right wrist surgery, mechanical mitral valve, MediPort placement on the right side with removal, insomnia, obesity. PERSONAL HISTORY: Does not abuse alcohol or drugs. Quit smoking in 2009, prior to which has smoked for nearly 57 years. FAMILY HISTORY: Mother at the age of 86 years from old age. Father had multiple sclerosis and of its complications at the age of 57 years. CODE STATUS: Full. Power of health care attorney is her son, Mr. Lopez. CURRENT MEDICATIONS: The patient is on: 1. Aspirin 81 mg p.o. daily. 2. Atorvastatin 40 mg p.o. at bedtime. 3. Calcium with vitamin D 1 tab daily. 4. Coreg 3.125 mg p.o. twice daily. 5. Fluticasone nasal spray. 6. Fish oil one capsule daily. 7. Protonix 40 mg p.o. daily. 8. Pramipexole 0.5 mg p.o. at bedtime. 9. Prazosin 1 mg p.o. at bedtime. 10. Prednisone 10 mg daily. 11. Seroquel 300 mg p.o. at bedtime. 12. Sertraline 25 mg p.o. daily. 13. Demadex 20 mg p.o. daily. 14. Coumadin 5 mg p.o. daily. 15. Albuterol inhaler q.6 hourly p.r.n. 16. Vitamin C 500 mg p.o. daily. 17. Ferrous sulfate 325 mg p.o. twice daily. ALLERGIES: TO CODEINE. REVIEW OF SYSTEMS: CONSTITUTIONAL: Negative for weight loss or gain, ability to conduct usual activities. SKIN: Negative for rash, itching. EYES: Negative for double vision, pain. ENT/MOUTH: Negative for nose bleeding, neck stiffness, pain, tenderness. CARDIOVASCULAR: Negative for palpitations, dyspnea on exertion, orthopnea. RESPIRATORY: Negative for shortness of breath, wheezing, cough, hemoptysis, fever or night sweats. GASTROINTESTINAL: Negative for poor appetite, abdominal pain, heartburn, nausea , vomiting, constipation, or diarrhea. GENITOURINARY: Negative for urgency, frequency, dysuria, nocturia. MUSCULOSKELETAL: Negative for pain, swelling. NEUROLOGIC/PSYCHIATRIC: Negative for anxiety, depression. ALLERGY/IMMUNOLOGIC: Negative for skin rash, bleeding tendency. PHYSICAL EXAMINATION: GENERAL: The patient is a 77-year-old female who is currently not in any acute distress. VITAL SIGNS: Blood pressure 156/74, pulse 84 per minute, respiratory rate 20 per minute, temperature 99.3 degrees Fahrenheit, saturating 95% on room air. NECK: Supple. No elevated JVD. HEENT: Eyes; extraocular muscles intact. Pupils reacting to light. Oral cavity, mucous membranes are moist. No exudates or congestion. CARDIOVASCULAR SYSTEM: S1 and S2 heard. Regular rhythm. RESPIRATORY SYSTEM: Air entry 1+ bilateral. Scattered rhonchi plus bilateral no wheezes. ABDOMEN: Soft. Bowel sounds heard. No tenderness, rigidity, or guarding. EXTREMITIES: There is bilateral peripheral edema. Mild redness is there on both lower extremities. No calf tenderness. VASCULAR SYSTEM: Peripheral pulses 1+ bilateral. No ischemic ulcerations or gangrene. CENTRAL NERVOUS SYSTEM: No gross focal deficits noted. The patient is alert, awake, and oriented well psychiatric system. The patient's mood is euthymic. No hallucinations or delusions. LABORATORY DATA: White count of 8, H and H 11 and 35, platelet count 205 with 77% neutrophils. PT/INR is 35 and 3.5, PTT 60. BUN 42, creatinine 2.5, serum bicarb 27, serum glucose 156. BNP is 327. Liver enzymes within normal limits. CRP is less than 0.5, albumin 4.1. Right lower extremity ultrasound venous Doppler done showed no evidence of DVT. EKG done shows normal sinus rhythm at 78 beats per minute. CLINICAL IMPRESSION AND PLAN: The patient is being admitted to the medical floor for acute kidney injury on top of chronic kidney disease, status dermatitis in both lower extremities. She will be on Lasix 20 mg IV q.12 hourly. We will also place her on RENO hose. No antibiotics will be given due to stasis dermatitis. I have explained the reasoning to the patient. She has taken a full course of Levaquin and 2 weeks of Keflex already and the patient likely has stasis dermatitis in both lower extremities, which is mild. We will continue her Coumadin. Also place her on Mucinex and Tessalon Perles for her dry coughing. We will continue all her home medications as before including aspirin, Lipitor, Coreg, ferrous sulfate, fish oil, Protonix , pramipexole, prazosin, prednisone, Seroquel, and Zoloft as before. We will obtain a chest x-ray to rule out infiltrate. Code status was discussed with the patient and she is full code. Job ID: [id number] [facility]
--- NOTE | 2018-04-08 14:39 | RAD ---
PORTABLE CHEST 1 VIEW: DATE: 04/08/2018. TIME: 1:52 p.m. HISTORY: Pain, redness right lower extremity, concern for pulmonary embolism. FINDINGS: Comparison is made with the exam of 02/14/2018. Changes of median sternotomy are again seen. The heart is enlarged. Aortic valve replacement is red emonstrated. No focal areas of consolidation, pneumothorax, tea pulmonary edema, or pleural effusi ons are seen. IMPRESSION: No acute process. POS: C
[2018-04-08] MEDS: PROVENTIL INHALER 6.7 G (200 INHALATIONS) INH SCH ×3 (15:06→18:30)
[2018-04-08] MEDS: Benzonatate 100 MG CAP PO SCH ×2 (15:29→21:06)
[2018-04-08] MEDS: Furosemide 20 MG/2 ML VIAL SLOW IVP SCH (15:31)
[2018-04-08] MEDS ORDERED: Warfarin Sodium 5 MG TAB PO SCH (17:00)
[2018-04-08] MEDS: Acetaminophen 325 MG TAB PO PRN (20:04)
[2018-04-08] MEDS ORDERED: Atorvastatin Calcium 40 MG TAB PO SCH (21:00)
[2018-04-08] MEDS ORDERED: Prazosin HCl 1 MG CAP PO SCH (21:00)
[2018-04-08] MEDS ORDERED: PRAMIPEXOLE DI HCL 0.5 MG PO SCH (21:00)
[2018-04-08] MEDS ORDERED: Pramipexole Di-HCl 0.25 MG TAB PO SCH (21:00)
[2018-04-08] MEDS ORDERED: Fish Oil 1,000 MG CAP PO SCH ×2 (21:00)
[2018-04-08] MEDS: guaiFENesin/DM ER PO SCH (21:05)
[2018-04-08] MEDS: Carvedilol 3.125 MG TAB PO SCH (21:06)
[2018-04-08] MEDS: Ferrous Sulfate 325 MG TAB PO SCH (21:07)
[2018-04-09] MEDS: PROVENTIL INHALER 6.7 G (200 INHALATIONS) INH SCH ×2 (00:29→07:27)
[2018-04-09] MEDS: Acetaminophen 325 MG TAB PO PRN (01:57)
[2018-04-09 08:28] VITALS: BP 138/68; TEMP 97.3
[2018-04-09 08:32] LABS: #Eosinphils 0.3 thou/uL (0.0-0.7); #Monocytes 0.6 thou/uL (0.11-0.59); #Neutrophils 4.2 thou/uL (1.40-6.50); %Basophils 0.5 % (0.0-1.0); %Eosinophils 5.5 % (0.0-10.0); %Monocytes 10.2 % (0.0-10.0); %Neutrophils 67.9 % (42.0-75.0); Hemoglobin 11.4 g/dL (12.0-16.0); Mean Corpuscular HGB CONC 32.1 g/dL (32.0-36.0); Mean Corpuscular Hemoglobin 30.6 pg (27.0-31.0); Mean Corpuscular Volume 95.3 fL (78.0-98.0); Platelet Count 179 thou/uL (130-400); RBC Distribution Width 14.3 % (11.5-14.5); Red Blood Cell (RBC) Count 3.73 mill/uL (4.20-5.40); White Blood Cell (WBC) Count 6.2 thou/uL (4.8-10.8)
[2018-04-09 08:41] LABS: INR-International Normal Ratio 3.8; PTT 58.2 SEC (22.9-36.1); Prothrombin Time 37.1 SEC (12.0-14.7)
[2018-04-09 08:49] LABS: Anion Gap 13 mmol/L (10-20); BUN (Urea Nitrogen) 39 mg/dL (9.8-20.1); Calc. Creatinine Clearance 35 mL/min (70-130); Calcium 9.4 mg/dL (7.8-10.44); Carbon Dioxide 24 mmol/L (23-31); Chloride 106 mmol/L (98-107); Estimated GFR-MDRD 21; Glucose 93 mg/dL (83-110); Potassium 4.3 mmol/L (3.5-5.1); Sodium 139 mmol/L (136-145)
[2018-04-09] MEDS: Carvedilol 3.125 MG TAB PO SCH (08:53)
[2018-04-09] MEDS: guaiFENesin/DM ER PO SCH (08:54)
[2018-04-09] MEDS: Benzonatate 100 MG CAP PO SCH (08:55)
[2018-04-09] MEDS: Ferrous Sulfate 325 MG TAB PO SCH (08:57)
[2018-04-09] MEDS: Furosemide 20 MG/2 ML VIAL SLOW IVP SCH (08:58)
[2018-04-09] MEDS ORDERED: Non-Formulary Item 1 EACH (Fluticasone Propionate [Flonase Allergy Relief] 1 SPRAY) EA NARE SCH (09:00)
[2018-04-09] MEDS ORDERED: Non-Formulary Item 1 EACH (Prednisone [Prednisone] 10 MG) PO SCH (09:00)
[2018-04-09] MEDS ORDERED: Aspirin Chewable 81 MG TAB PO SCH (09:00)
[2018-04-09] MEDS ORDERED: Ascorbic Acid 500 mg Chewable Tablet PO SCH (09:00)
[2018-04-09] MEDS ORDERED: Torsemide 20 MG TAB PO SCH (09:00)
[2018-04-09] MEDS ORDERED: Fluticasone Propionate Nasal Spray 16 gm Bottle NASAL SCH (09:00)
[2018-04-09] MEDS ORDERED: predniSONE 20 MG TAB PO SCH (09:00)
--- NOTE | 2018-04-09 10:49 | PDOC.PN ---
- Subjective Encounter Start Date: 04/09/18 Encounter Start Time: 09:45 Subjective: feels better -: leg swelling has gotten better, no sob -: has amb well with PT yesterday - Objective Resuscitation Status - Order Detail: 04/08/18 10:05 Resuscitation Status Routine Resuscitation Status: FULL: Full Resuscitation MAR Reviewed: Yes Vital Signs & Weight: Vital Signs (12 hours) Temp Pulse Resp BP Pulse Ox 04/09/18 08:00 97.3 F L 72 18 138/68 92 L 04/09/18 01:50 97.8 F 73 16 140/67 93 L Weight Weight 233 lb 5 oz I&O: 04/08/18 04/09/18 04/10/18 06:59 06:59 06:59 Intake Total 1800 Balance 1800 Result Diagrams: 04/09/18 08:21 04/09/18 08:21 Phys Exam - Physical Examination HEENT: PERRLA, moist MMs Neck: no JVD, supple Respiratory: no wheezing, no rales Cardiovascular: RRR, no significant murmur Gastrointestinal: soft, non-tender, positive bowel sounds Musculoskeletal: no edema, pulses present Neurological: non-focal, moves all 4 limbs erythema is better in both legs, is wearing marycruz hose till knees Psychiatric: normal affect, A&O x 3 Dx/Plan (1) CHERIE (acute kidney injury) Code(s): N17.9 - ACUTE KIDNEY FAILURE, UNSPECIFIED Status: Acute (2) Stasis dermatitis of both legs Code(s): I87.2 - VENOUS INSUFFICIENCY (CHRONIC) (PERIPHERAL) Status: Acute (3) COPD (chronic obstructive pulmonary disease) Status: Chronic Qualifiers: COPD type: chronic bronchitis (4) CAD (coronary artery disease) Code(s): I25.10 - ATHSCL HEART DISEASE OF [place] CORONARY ARTERY W/O ANG PCTRS Status: Chronic Qualifiers: Coronary Disease-Associated Artery/Lesion type: [place] artery [place] vs. transplanted heart: [place] heart Associated angina: without angina Qualified Code(s): I25.10 - Atherosclerotic heart disease of [place] coronary artery without angina pectoris (5) CKD (chronic kidney disease) Code(s): N18.9 - CHRONIC KIDNEY DISEASE, UNSPECIFIED Status: Chronic Qualifiers: Chronic kidney disease stage: stage 3 (moderate) Qualified Code(s): N18.3 - Chronic kidney disease, stage 3 (moderate) Comment: stable (6) Dyslipidemia Code(s): E78.5 - HYPERLIPIDEMIA, UNSPECIFIED Status: Chronic (7) H/O mitral valve replacement with mechanical valve Code(s): Z95.2 - PRESENCE OF PROSTHETIC HEART VALVE Status: Chronic Comment : continue anticoagulation, target INR 2.5-3.5 (8) H/O unilateral nephrectomy Code(s): Z90.5 - ACQUIRED ABSENCE OF KIDNEY Status: Chronic Comment: right - Plan hemostable -: has recovered well and wants to go home -: I have called her [facility] and have told them to give her alb inh -: which can be used with a spacer (d/w at pharmacy) -: to continue all her home meds, dc pt home * . inr checks as before.
--- NOTE | 2018-04-09 13:44 | DIS ---
DATE OF ADMISSION: 04/08/2018 DATE OF DISCHARGE: 04/09/2018 DISCHARGE DISPOSITION: Is to home. PRIMARY DISCHARGE DIAGNOSES: 1. Acute kidney injury. 2. Stasis dermatitis of both legs. SECONDARY DISCHARGE DIAGNOSES: 1. Chronic kidney disease stage 3. 2. Coronary artery disease. 3. Chronic obstructive pulmonary disease. 4. Dyslipidemia. 5. History of mechanical mitral valve. 6. Prior history of right nephrectomy. PROCEDURES DONE DURING HOSPITALIZATION: The patient has had ultrasound, venous Doppler of right lower extremity done, which showed no evidence of DVT. Portable chest x-ray done, which shows no acute process. Blood cultures x2, preliminary results show no growth. H and H 11 and 35, platelet count 179. Sedimentation rate is 27. PT and INR 37 and 3.8, PTT 58. BUN 42, and creatinine 2.5 on the day of admission with discharge numbers of 39 and 2.2. BNP 327. Albumin is 4.1. DISCHARGE MEDICATION: 1. Aspirin 81 mg p.o. daily. 2. Lipitor 40 mg p.o. at bedtime. 3. Coreg 3.125 mg p.o. twice daily. 4. Fluticasone nasal spray to each nostril daily. 5. Fish oil one capsule at bedtime. 6. Protonix 40 mg daily. 7. Pramipexole 0.5 mg p.o. at bedtime. 8. Prazosin 1 mg p.o. at bedtime. 9. Seroquel 300 mg p.o. at bedtime. 10. Zoloft 25 mg p.o. daily. 11. Demadex 20 mg daily. 12. Coumadin 5 mg daily. 13. Albuterol inhaler q.6 hourly p.r.n. 14. Vitamin C 500 mg p.o. daily. 15. Tessalon 100 mg p.o. three times daily. 16. Ferrous sulfate 325 mg p.o. daily. 17. Mucinex 600 mg p.o. q.12 hourly. ALLERGIES: ALLERGIC TO CODEINE. DISCHARGE PLAN: The patient to follow up with primary care physician in one week. BRIEF COURSE DURING HOSPITALIZATION: The patient initially came to ER with complaints of redness and swelling of both lower extremities. The patient was essentially admitted for stasis dermatitis of lower extremities and mild acute kidney injury with shortness of breath as well. The patient was gently diuresed with IV Lasix and a RENO hose was placed for her lower extremities. All her antibiotics were discontinued from ER. The patient likely has stasis dermatitis in both lower extremities. She was also placed on albuterol inhalers q.6 hourly. The patient has chronic sinusitis and has been advised to take moist nebulizations of warm air. She is ambulated with Physical Therapy in the hallway. Her mild lower extremity edema has resolved. The erythema in both lower extremities is resolving as well. She has been advised to wear RENO hose when she is upright. She is hemodynamically stable. Please see a [id number] documentation for the day of discharge on [facility]. Job ID: [id number] [facility]
== END 2018-04-09 11:10 | disposition home or self-care (01) | DRG 683 ==
LOC: ERS 01:50 → ONC 04:50
PROVIDERS: ADMIT Hospitalist; ATTEND Hospitalist
DX: N17.9 Acute kidney failure, unspecified (principal); Z68.41 Body mass index [BMI] 40.0-44.9, adult; N18.3 Chronic kidney disease, stage 3 (moderate); I12.9 Hypertensive chronic kidney disease with stage 1 through stage 4 chronic kidney disease, or unspecified chronic kidney disease; J44.9 Chronic obstructive pulmonary disease, unspecified; E78.5 Hyperlipidemia, unspecified; G47.00 Insomnia, unspecified; E66.9 Obesity, unspecified; I87.2 Venous insufficiency (chronic) (peripheral); I25.10 Atherosclerotic heart disease of native coronary artery without angina pectoris; Z87.891 Personal history of nicotine dependence; Z90.5 Acquired absence of kidney; Z90.721 Acquired absence of ovaries, unilateral; Z98.890 Other specified postprocedural states; Z79.82 Long term (current) use of aspirin; Z79.899 Other long term (current) drug therapy; Z88.5 Allergy status to narcotic agent; Z95.2 Presence of prosthetic heart valve
CPT/HCPCS: 36415; 71045; 80048; 80053; 83605; 83880; 85025; 85610; 85652; 85730; 86140; 87040; 93005; J1940; J3370; J7620

== ENCOUNTER 2018-05-19 19:45 | Emergency (ER) | payer MEDICARE ==
[2018-05-19 20:23] LABS: #Eosinphils 0.3 thou/uL (0.0-0.7); #Lymphocytes 0.8 thou/uL (1.20-3.40); #Monocytes 0.8 thou/uL (0.11-0.59); #Neutrophils 4.5 thou/uL (1.40-6.50); %Basophils 0.6 % (0.0-1.0); %Eosinophils 4.7 % (0.0-10.0); %Lymphocytes 12.8 % (21.0-51.0); %Neutrophils 69.8 % (42.0-75.0); Hemoglobin 10.6 g/dL (12.0-16.0); Mean Corpuscular HGB CONC 32.7 g/dL (32.0-36.0); Mean Corpuscular Hemoglobin 30.1 pg (27.0-31.0); Mean Corpuscular Volume 92.1 fL (78.0-98.0); Mean Platelet Volume 8.5 fL (7.4-10.4); Platelet Count 190 thou/uL (130-400); RBC Distribution Width 14.9 % (11.5-14.5); Red Blood Cell (RBC) Count 3.51 mill/uL (4.20-5.40); White Blood Cell (WBC) Count 6.5 thou/uL (4.8-10.8)
--- NOTE | 2018-05-19 20:40 | RAD ---
CHEST ONE VIEW: 05/19/18 HISTORY: Dyspnea. Edema. COMPARISON: 04/08/18. FINDINGS: The cardiac silhouette is magnified by projection. Pulmonary vasculature is unremarkable. Mediastinum is midline with postop changes and aortic calcification. No lobar consolidation or evidence of pneu mothorax. IMPRESSION: Atherosclerosis. Chronic type findings are stable. POS: [facility]
[2018-05-19 20:43] LABS: ALT (SGPT) 25 U/L (8-55); AST (SGOT) 28 U/L (5-34); Alkaline Phosphatase 97 U/L (40-150); Anion Gap 14 mmol/L (10-20); BUN (Urea Nitrogen) 46 mg/dL (9.8-20.1); Bilirubin, Total 0.4 mg/dL (0.2-1.2); Calc. Creatinine Clearance 0 mL/min (70-130); Calcium 8.9 mg/dL (7.8-10.44); Carbon Dioxide 28 mmol/L (23-31); Chloride 102 mmol/L (98-107); Estimated GFR-MDRD 17; Globulin 2.6 g/dL (2.4-3.5); Glucose 106 mg/dL (83-110); Potassium 4.5 mmol/L (3.5-5.1); Protein, Total 6.6 g/dL (6.0-8.3); Sodium 139 mmol/L (136-145)
[2018-05-19] MEDS ORDERED: Furosemide 40 MG/4 ML VIAL ONE (21:03)
[2018-05-19 21:10] LABS: CKMB 4.2 ng/mL (0-6.6)
[2018-05-19 21:32] LABS: INR-International Normal Ratio 3.8; PTT 58.8 SEC (22.9-36.1); Prothrombin Time 37.4 SEC (12.0-14.7)
== END 2018-05-19 21:25 | disposition home or self-care (01) ==
LOC: ERS 19:45
DX: R60.0 Localized edema (principal); E78.5 Hyperlipidemia, unspecified; F32.9 Major depressive disorder, single episode, unspecified; J45.909 Unspecified asthma, uncomplicated; M19.90 Unspecified osteoarthritis, unspecified site; Z85.528 Personal history of other malignant neoplasm of kidney; Z85.028 Personal history of other malignant neoplasm of stomach; Z85.72 Personal history of non-Hodgkin lymphomas; Z87.891 Personal history of nicotine dependence; Z79.82 Long term (current) use of aspirin; Z79.01 Long term (current) use of anticoagulants; Z79.899 Other long term (current) drug therapy
CPT/HCPCS: 71045; 80053; 82553; 83880; 84484; 85025; 85610; 85730; 93005; 96374; J1940

== ENCOUNTER 2019-06-14 11:00 | Inpatient (IN) | payer MEDICARE, OTHER ==
[2019-06-14 11:35] LABS: #Eosinphils 0.2 thou/uL (0.0-0.7); #Lymphocytes 0.7 thou/uL (1.20-3.40); #Monocytes 0.7 thou/uL (0.11-0.59); %Basophils 0.3 % (0.0-1.0); %Eosinophils 1.6 % (0.0-10.0); %Monocytes 5.2 % (0.0-10.0); Hemoglobin 9.5 g/dL (12.0-16.0); Mean Corpuscular HGB CONC 30.7 g/dL (32.0-36.0); Mean Corpuscular Hemoglobin 28.8 pg (27.0-31.0); Mean Corpuscular Volume 93.9 fL (78.0-98.0); Mean Platelet Volume 8.4 fL (7.4-10.4); Platelet Count 227 thou/uL (130-400); Red Blood Cell (RBC) Count 3.29 mill/uL (4.20-5.40); White Blood Cell (WBC) Count 13.6 thou/uL (4.8-10.8)
[2019-06-14 12:08] LABS: ALT (SGPT) 25 U/L (8-55); AST (SGOT) 24 U/L (5-34); Albumin 3.2 g/dL (3.4-4.8); Alkaline Phosphatase 94 U/L (40-110); Anion Gap 12 mmol/L (10-20); BUN (Urea Nitrogen) 29 mg/dL (9.8-20.1); Bilirubin, Total 0.8 mg/dL (0.2-1.2); Calc. Creatinine Clearance 0 mL/min (70-130); Calcium 9.1 mg/dL (7.8-10.44); Carbon Dioxide 31 mmol/L (23-31); Chloride 101 mmol/L (98-107); Estimated GFR-MDRD 34; Globulin 2.7 g/dL (2.4-3.5); Glucose 185 mg/dL (83-110); Potassium 3.9 mmol/L (3.5-5.1); Protein, Total 5.9 g/dL (6.0-8.3); Sodium 140 mmol/L (136-145)
[2019-06-14 12:11] LABS: Prothrombin Time 113.5 SEC (12.0-14.7)
[2019-06-14] MEDS ORDERED: predniSONE 20 MG TAB ONE (12:11)
[2019-06-14 12:16] LABS: INR-International Normal Ratio 16.1
[2019-06-14 12:17] LABS: PTT 230.1 SEC (22.9-36.1)
--- NOTE | 2019-06-14 12:49 | RAD ---
Chest one view HISTORY: Dyspnea. COMPARISON: 05/19/2018. FINDINGS: Cardiac silhouette is magnified and enlarged. Pulmonary vasculature is unremarkable. Possib le COVID 19. Mediastinum is midline with postoperative changes and aortic calcification. Ill-defined, irregular shaped areas of predominantly peripheral infiltrate involve each lung, with re lative sparing of the left upper lobe. No evidence of pneumothorax. gas operations superintendent leads overlie the chest. IMPRESSION : She peripheral bilateral infiltrates. Clinical correlation regarding other signs and symptoms of mult ifocal bilateral pneumonitis is required.
[2019-06-14 13:27] LABS: INR-International Normal Ratio 15.3; Prothrombin Time 109.5 SEC (12.0-14.7)
[2019-06-14 13:28] LABS: PTT 217.3 SEC (22.9-36.1)
[2019-06-14] MEDS ORDERED: Azithromycin 500 MG VIAL ONE (14:29)
[2019-06-14] MEDS ORDERED: cefTRIAXone\\ROCEPHIN 2 GM VIAL ONE (14:29)
[2019-06-14] MEDS ORDERED: Phytonadione 10 MG/ML AMP ONE (15:18)
[2019-06-14 15:38] LABS: CKMB 1.4 ng/mL (0-6.6)
[2019-06-14 16:04] LABS: Troponin I 0.075 ng/mL (< 0.028)
[2019-06-14] MEDS ORDERED: PROVENTIL INHALER 6.7 G (200 INHALATIONS) INH PRN (16:27)
[2019-06-14] MEDS ORDERED: Dextrose 5% in Water 1,000 ML IV PRN (16:29)
[2019-06-14] MEDS ORDERED: HumaLOG 300 UNITS/3 ML VIAL SC PRN ×2 (16:29)
[2019-06-14] MEDS ORDERED: Dextrose 50% Abboject 50 ML SYRINGE SLOW IVP PRN (16:29)
[2019-06-14] MEDS ORDERED: Furosemide 20 MG/2 ML VIAL SLOW IVP SCH (16:30)
[2019-06-14] MEDS ORDERED: methylPREDNISolone Sod Succ 40 MG VIAL IVP SCH (16:30)
[2019-06-14] MEDS ORDERED: Acetaminophen 325 MG TAB PO PRN (16:31)
[2019-06-14] MEDS ORDERED: Phytonadione 10 MG in Sodium Chloride 0.9% 50 ML IVPB SCH (16:45)
--- NOTE | 2019-06-14 16:50 | PDOC.HHP ---
Hospitalist HPI - History of Present Illness SOB x 2 days History of Present Illness: PCP: Ana Jones Pulmonolgist: Dr. Velarde ([employer]) Picking Machine Operator Helper: Dr. Preston Network Operations Center Engineer : Dr. Meng The patient is a 78/F with PMH significant for COPD (home O2), asthma, afib rate controlled (on coumadin), HTN, HLD that presents to the ER for the above complaint. The patient is a resident at [facility], independent living. Reports over the past 2 days, progressive shortness of breath. Reports she becomes "winded" while walking to her bathroom, which is approximately 20 feet. She has associated left sided chest pain with exertion, describes as pressure, 10/10, which is relieved with rest. She has recently been placed on home oxygen for the past 3 weeks, using 3L which "was helping", until the past 2 days. Reports chronic, non productive cough, wheezing. Denies any hemoptysis. Reports chronic orthopnea, sleeping upright in chair or bed. She has noticed her legs have been swelling recently and are bruising. Denies any recent falls or trauma. Denies any recent weight gain. Denies any fever or chills. Denies any abdominal pain, nausea, vomiting or diarrhea or melena/hematochezia. ED Course: VS T 98.3F, BP 117/77, HR 86, RR 34, Sp02 89% 3L NC, improved to 9&% 4L NC EKG afib, rate controlled CXR + peripheral bilateral infiltrates BNP 813 Trop 0.069 PT 113.5 repeat 109.5 PTT 230.1 repeat 217.3 INR 16.1 repeat 15.3 Na 140 K 3.9 BUN 29 Creatinine 1.47 GFR 34 WBC 13.6 Hgb 9.5 Hct 30.9 Plat 227 Given Vit K 5mg po x 1 dose Rocephin 2gm IVPB Azithromycin 500mg IVBP Proventil HFA INH x 6 Prednisone 40mg po x 1 dose Allergies: Codeine Home Medications 1. Carvedilol 3.125mg, 2 tabs po BID 2. Prazosin 1mg po q hs 3. Torsemide 20mg po q am 4. Atorvastatin 40mg po q hs 5. Xanax 0.25mg po prn (max dose 4 tabs per day) 6. Quetiapine 300mg po q hs 7. sertraline 25mg po q am 8. protonix 40mg po q am 9. Calcium 600 + D3 daily 10. Ferrous sulfate 325mg po BID Hospitalist ROS - Review of Systems Constitutional: reports: malaise. denies: fever, chills Eyes: denies: pain, vision change, conjunctivae inflammation, eyelid inflammation, redness, other ENT: denies: ear pain, ear discharge, nose pain, nose discharge, nose congestion , mouth pain, mouth swelling, throat pain, throat swelling, other Respiratory: reports: cough, dry (chronic), shortness of breath, SOB with excertion, wheezing. denies: hemoptysis, sputum Cardiovascular: reports: chest pain, orthopnea, edema. denies: palpitations, paroxysmal noc. 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)) Psych: reports: Depression Endocrine: reports: Other (Prediabetic HAI1C 6.1% on 05/17/2019) - Past Surgical History Past Surgical History: reports: Appendectomy, Hysterectomy (oophorectomy), Hernia Repair, Other (Bladder suspension, MVR (03/2009), Right nephrectomy, Left arm and Right wrist and knee) - Family History Other Family History: non contributory to this case - Social History Smoking Status: Former smoker Alcohol: reports: Rare Drugs: reports: none Living Situation: Alone Occupation: Lives [facility], assisted living, has help 5 hours/day with ADLs Activity level: independent ambulation - Exam General Appearance: NAD, awake alert Eye: PERRL, anicteric sclera ENT: normocephalic atraumatic, dry oral mucosa Neck: supple, no JVD Heart: no gallops, no rubs, normal peripheral pulses, irregular Respiratory: rhonchi, tachypneic, wheezes Respiratory - other findings: diminished to BLL Gastrointestinal: soft, non-tender, normal bowel sounds, no guarding, no rigidity Extremities: no cyanosis Extremities - other findings: 3+ edema BLE, palpable pedal pulses bilaterally Skin: negative: no lesions Skin - other findings: multiple ecchymosis to BLEs Neurological: no focal deficits Musculoskeletal: normal strength Psychiatric: normal affect, A&O x 3 Hospitalist Results - Labs Result Diagrams: 06/14/19 11:29 06/14/19 11:29 Lab results: WBC 13.6 thou/uL (4.8-10.8) H 06/14/19 11:29 Hgb 9.5 g/dL (12.0-16.0) L 06/14/19 11:29 Hct 30.9 % (36.0-47.0) L 06/14/19 11:29 MCV 93.9 fL (78.0-98.0) 06/14/19 11:29 Plt Count 227 thou/uL (130-400) 06/14/19 11:29 Neutrophils % 88.0 % (42.0-75.0) H 06/14/19 11:29 Sodium 140 mmol/L (136-145) 06/14/19 11:29 Potassium 3.9 mmol/L (3.5-5.1) 06/14/19 11:29 Chloride 101 mmol/L (98-107) 06/14/19 11:29 Carbon Dioxide 31 mmol/L (23-31) 06/14/19 11:29 BUN 29 mg/dL (9.8-20.1) H 06/14/19 11:29 Creatinine 1.47 mg/dL (0.6-1.1) H 06/14/19 11:29 Glucose 185 mg/dL (83-110) H 06/14/19 11:29 Calcium 9.1 mg/dL (7.8-10.44) 06/14/19 11:29 Total Bilirubin 0.8 mg/dL (0.2-1.2) 06/14/19 11:29 AST 24 U/L (5-34) 06/14/19 11:29 ALT 25 U/L (8-55) 06/14/19 11:29 Alkaline Phosphatase 94 U/L (40-110) 06/14/19 11:29 CK-MB (CK-2) 1.4 ng/mL (0-6.6) 06/14/19 11:29 Troponin I 0.075 ng/mL (< 0.028) H 06/14/19 15:32 B-Natriuretic Peptide 813.3 pg/mL (0-100) H 06/14/19 11:29 Serum Total Protein 5.9 g/dL (6.0-8.3) L 06/14/19 11:29 Albumin 3.2 g/dL (3.4-4.8) L 06/14/19 11:29 - EKG Interpretation EKG: afib rate controlled - Radiology Interpretation Chest x-ray Status: report reviewed by ct Hospitalist H&P A/P - Problem (1) Bilateral pneumonia Code(s): J18.9 - PNEUMONIA, UNSPECIFIED ORGANISM Status: Acute Assessment and Plan: Admit to telemetry floor, inpatient status Expected length of stay > 2 midnights CXR + bilateral infiltrates, tachypneic 30s on 4L NC Sp02 97% Patient has WBCs 13.6 Start doxycycline and continue Rocephin IVPB Oxygen supportive therapy maintain Sp02 > 92% Droplet precautions COVID-19 and Blood CX pending (2) COPD exacerbation Code(s): J44.1 - CHRONIC OBSTRUCTIVE PULMONARY DISEASE W (ACUTE) EXACERBATION Status: Acute Assessment and Plan: Continue supplemental oxygen NC Solumedrol 40mg x 1 dose now albuterol MDI scheduled and prn Start doxycycline and rocephin IVPB (3) Suspected COVID-19 virus infection Code(s): R68.89 - OTHER GENERAL SYMPTOMS AND SIGNS Status: Acute Assessment and Plan: Mildly elevated WBCs Droplet precautions Supportive care COVID-19 pending (4) Supratherapeutic INR Code(s): R79.1 - ABNORMAL COAGULATION PROFILE Status: Acute Assessment and Plan: Coughing up blood tinged sputum on examination INR 15.3 Will give Vit K 10mg IVPB x 1 dose Will hold coumadin Recheck INR this evening and in am Hold all NSAIDs, only tylenol for pain/fever (5) Elevated troponin Code(s): R79.89 - OTHER SPECIFIED ABNORMAL FINDINGS OF BLOOD CHEMISTRY Status : Acute Assessment and Plan: EKG afib, rate controlled, no ST elevations Most likely demand ischemia Will trend troponins (6) Prediabetes Code(s): R73.03 - PREDIABETES Status: Chronic Assessment and Plan: Elevated BS 185 HA1C 6.1% on 05/17/19 Start mild sliding scale AC/HS accuchecks (7) CKD (chronic kidney disease), stage III Code(s): N18.3 - CHRONIC KIDNEY DISEASE, STAGE 3 (MODERATE) Status: Chronic Assessment and Plan: appear stable, followed by Dr. Meng Creatinine 1.47 / GFR 34 today Creatinine 1.60 / GFR 31 on 05/17/19 Will repeat bmp in am (8) Chronic a-fib Code(s): I48.20 - CHRONIC ATRIAL FIBRILLATION, UNSPECIFIED Status: Chronic Assessment and Plan: stable, rate controlled (9) HTN (hypertension) Code(s): I10 - ESSENTIAL (PRIMARY) HYPERTENSION Status: Chronic Assessment and Plan: Will restart carvedilol 3.125mg, takes 2 tabs po BID Will restart prazosin 1mg po q hs When home meds reconciled by nursing (10) Dyslipidemia Code(s): E78.5 - HYPERLIPIDEMIA, UNSPECIFIED Status: Chronic Assessment and Plan: Will restart atorvastatin 40mg po q hs when meds reconciled by nursing - Plan Plan: Consult PT/OT Consult dietary for coumadin counseling NO DVT prophylaxis Protonix for GI prophylaxis Full Code SHARON is John at [phone] Stack
[2019-06-14] MEDS ORDERED: Albuterol 200 PUFF (6.7GM INHALER) INH PRN (16:51)
[2019-06-14 18:44] LABS: Hemoglobin 9.3 g/dL (12.0-16.0)
[2019-06-14 18:56] LABS: Prothrombin Time 98.4 SEC (12.0-14.7)
[2019-06-14] MEDS ORDERED: Albuterol 200 PUFF (6.7GM INHALER) INH SCH (19:00)
[2019-06-14] MEDS ORDERED: PROVENTIL INHALER 6.7 G (200 INHALATIONS) INH SCH (19:00)
[2019-06-14 19:03] LABS: INR-International Normal Ratio 13.3
[2019-06-14 19:04] LABS: PTT 195.2 SEC (22.9-36.1)
[2019-06-14 19:07] LABS: Troponin I 0.066 ng/mL (< 0.028)
[2019-06-14 19:25] VITALS: BMI 41.1
[2019-06-14] MEDS: Pramipexole Di-HCl 0.25 MG TAB PO SCH (21:11)
[2019-06-14] MEDS: ALPRAZolam 0.25 MG TAB PO SCH (21:11)
[2019-06-14] MEDS: traZODone HCl 50 MG TAB PO SCH (21:11)
[2019-06-14] MEDS: Prazosin HCl 1 MG CAP PO SCH (21:12)
[2019-06-14] MEDS: Atorvastatin Calcium 40 MG TAB PO SCH (21:12)
[2019-06-14] MEDS: Albuterol 200 PUFF (6.7GM INHALER) INH SCH (23:33)
[2019-06-15] MEDS: Levothyroxine 150 MCG TAB PO SCH (04:58)
[2019-06-15 05:22] LABS: #Basophils 0.1 thou/uL (0.0-0.2); #Eosinphils 0.1 thou/uL (0.0-0.7); #Lymphocytes 0.7 thou/uL (1.20-3.40); #Monocytes 0.7 thou/uL (0.11-0.59); #Neutrophils 7.1 thou/uL (1.40-6.50); %Basophils 1.6 % (0.0-1.0); %Eosinophils 0.8 % (0.0-10.0); %Lymphocytes 7.9 % (21.0-51.0); %Monocytes 7.7 % (0.0-10.0); Hemoglobin 8.4 g/dL (12.0-16.0); Mean Corpuscular HGB CONC 31.4 g/dL (32.0-36.0); Mean Corpuscular Hemoglobin 29.6 pg (27.0-31.0); Mean Corpuscular Volume 94.3 fL (78.0-98.0); Mean Platelet Volume 8.3 fL (7.4-10.4); Platelet Count 186 thou/uL (130-400); RBC Distribution Width 16.9 % (11.5-14.5); Red Blood Cell (RBC) Count 2.84 mill/uL (4.20-5.40); White Blood Cell (WBC) Count 8.7 thou/uL (4.8-10.8)
[2019-06-15 05:43] LABS: Anion Gap 11 mmol/L (10-20); BUN (Urea Nitrogen) 31 mg/dL (9.8-20.1); Calc. Creatinine Clearance 53 mL/min (70-130); Calcium 8.6 mg/dL (7.8-10.44); Carbon Dioxide 35 mmol/L (23-31); Chloride 102 mmol/L (98-107); Estimated GFR-MDRD 34; Glucose 174 mg/dL (83-110); Potassium 3.5 mmol/L (3.5-5.1); Sodium 144 mmol/L (136-145)
[2019-06-15 05:59] LABS: INR-International Normal Ratio 1.7
[2019-06-15] MEDS: Albuterol 200 PUFF (6.7GM INHALER) INH SCH ×4 (06:35→21:29)
[2019-06-15] MEDS: Ferrous Sulfate 325 MG TAB PO SCH ×2 (09:19→17:48)
[2019-06-15] MEDS: ALPRAZolam 0.25 MG TAB PO SCH ×4 (09:20→21:23)
[2019-06-15] MEDS: Furosemide 40 MG TAB PO SCH (09:20)
[2019-06-15] MEDS: Ascorbic Acid 500 mg Chewable Tablet PO SCH (09:20)
[2019-06-15] MEDS: Calcium Carbonate 600 MG + Vit D TAB PO SCH (09:20)
[2019-06-15] MEDS: Pantoprazole 40 MG VIAL IVP SCH (09:21)
--- NOTE | 2019-06-15 12:29 | PDOC.HOSPP ---
- Subjective Encounter Date: 06/15/19 Subjective: Says she "feels like shit". Specifically, she does not feel SOB at rest. She only has BRYANT. She has had "a daily layton" with CHF. Reports some peripheral edema. - Objective Vital Signs & Weight: Vital Signs (12 hours) Temp Pulse Resp BP BP Pulse Ox 06/15/19 11:45 96.1 F L 99 22 H 116/53 L 95 06/15/19 09:20 96.2 F L 90 20 129/60 95 06/15/19 04:00 97.8 F 90 18 111/63 95 Weight Weight 240 lb I&O: 06/14/19 06/15/19 06/16/19 06:59 06:59 06:59 Intake Total 400 Output Total 850 Balance -450 Result Diagrams: 06/15/19 05:10 06/15/19 05:10 Additional Labs: Accuchecks 06/15/19 06/14/19 11:42 21:25 POC Glucose 181 H 171 H Hospitalist ROS - Medication Medications: Active Medications Generic Name Dose Route Start Last Admin Trade Name Freq PRN Reason Stop Dose Admin Albuterol Sulfate 4 puff 06/14/19 19:00 06/15/19 09:19 Proventil Hfa INH 4 puff [id number] LISA Administration Alprazolam 0.25 mg 06/14/19 21:00 06/15/19 09:20 Xanax PO 0.25 mg QID LISA Administration Ascorbic Acid 500 mg 06/15/19 09:00 06/15/19 09:20 Vitamin C PO 500 mg DAILY LISA Administration Atorvastatin Calcium 40 mg 06/14/19 21:00 06/14/19 21:12 Lipitor PO 40 mg HS LISA Administration Calcium/Vitamin D 1 tab 06/15/19 09:00 06/15/19 09:20 Caltrate 600 + Vit D PO 1 tab DAILY LISA Administration Ferrous Sulfate 325 mg 06/15/19 08:00 06/15/19 09:19 Feosol PO 325 mg BID-WM LISA Administration Furosemide 40 mg 06/15/19 09:00 06/15/19 09:20 Lasix PO 40 mg DAILY LISA Administration Doxycycline Hyclate 100 mg/ 100 mls @ 100 mls/hr 06/14/19 21:00 04/21/20 09: 20 Sodium Chloride IVPB 100 mls Q12HR ILSA Administration Levothyroxine Sodium 150 mcg 06/15/19 06:00 06/15/19 04:58 Synthroid PO 150 mcg 0600 LISA Administration Pantoprazole Sodium 40 mg 06/15/19 09:00 06/15/19 09:21 Protonix IVP 40 mg DAILY LISA Administration Pramipexole Dihydrochloride 0.5 mg 06/14/19 21:00 06/14/19 21:11 Mirapex PO 0.5 mg HS LISA Administration Prazosin HCl 1 mg 06/14/19 21:00 06/14/19 21:12 Minipress PO 1 mg HS LISA Administration Quetiapine Fumarate 300 mg 06/14/19 21:00 06/14/19 21:11 Seroquel PO 300 mg HS LISA Administration Sertraline HCl 100 mg 06/15/19 09:00 06/15/19 09:21 Zoloft PO 100 mg DAILY LISA Administration Trazodone HCl 50 mg 06/14/19 21:00 06/14/19 21:11 Desyrel PO 50 mg HS LISA Administration - Exam General Appearance: NAD, awake alert General - other findings: Obese Heart: RRR, no murmur, no gallops, no rubs, normal peripheral pulses Respiratory: rales, wheezes Gastrointestinal: soft, non-tender, non-distended, normal bowel sounds, no palpable masses, no hepatomegaly, no splenomegaly, no bruit Extremities - other findings: Ecchymosis right antecubital area. Petechiae of calves. Skin: normal turgor Musculoskeletal: normal tone Psychiatric: normal affect, normal behavior, A&O x 3 Hosp A/P (1) Bilateral pneumonia Code(s): J18.9 - PNEUMONIA, UNSPECIFIED ORGANISM Status: Acute (2) Supratherapeutic INR Code(s): R79.1 - ABNORMAL COAGULATION PROFILE Status: Acute (3) Suspected COVID-19 virus infection Code(s): R68.89 - OTHER GENERAL SYMPTOMS AND SIGNS Status: Acute (4) CKD (chronic kidney disease), stage III Code(s): N18.3 - CHRONIC KIDNEY DISEASE, STAGE 3 (MODERATE) Status: Chronic (5) Chronic a-fib Code(s): I48.20 - CHRONIC ATRIAL FIBRILLATION, UNSPECIFIED Status: Chronic (6) Dyslipidemia Code(s): E78.5 - HYPERLIPIDEMIA, UNSPECIFIED Status: Chronic (7) HTN (hypertension) Code(s): I10 - ESSENTIAL (PRIMARY) HYPERTENSION Status: Chronic (8) Acute exacerbation of CHF (congestive heart failure) Code(s): I50.9 - HEART FAILURE, UNSPECIFIED Status: Acute Qualifiers: Heart failure type: systolic Qualified Code(s): I50.23 - Acute on chronic systolic (congestive) heart failure (9) COPD exacerbation Code(s): J44.1 - CHRONIC OBSTRUCTIVE PULMONARY DISEASE W (ACUTE) EXACERBATION Status: Acute (10) Stasis dermatitis of both legs Code(s): I87.2 - VENOUS INSUFFICIENCY (CHRONIC) (PERIPHERAL) Status: Acute (11) CAD (coronary artery disease) Code(s): I25.10 - ATHSCL HEART DISEASE OF [place] CORONARY ARTERY W/O ANG PCTRS Status: Chronic Qualifiers: Coronary Disease-Associated Artery/Lesion type: [place] artery [place] vs. transplanted heart: [place] heart Associated angina: without angina Qualified Code(s): I25.10 - Atherosclerotic heart disease of [place] coronary artery without angina pectoris (12) H/O mitral valve replacement with mechanical valve Code(s): Z95.2 - PRESENCE OF PROSTHETIC HEART VALVE Status: Chronic (13) H/O unilateral nephrectomy Code(s): Z90.5 - ACQUIRED ABSENCE OF KIDNEY Status: Chronic - Plan Pneumonia: Unclear if this if infiltrate or edema. Covid test was negative. Did report modestly productive cough on admission. Pro's - bilateral peripheral infiltrates, nml wbc with lymphopenia. Con's - Afebrile, only BRYANT and not at rest, negative test. Will continue abx for CAP. Consult Dr. Jones to determine if we need to continue isolation or consider retest. She lives at [facility]. She will NOT require a second negative to return. CHF: Prior echo with EF 40% Suspect her CXR findings are related to CHF. Additional dose of lasix now. She does say she has been on Coreg although it was not originally on her med list. Afib: Hx of being on multaq, but has been off for a couple of months. Prosthetic Mitral Valve: Will need to cover her with Lovenox until the INR is back in the therapeutic range. Supratherapeutic INR: Severely elevated. Improved with vitamin K, but now below the therapeutic window for a heart valve. Resulted in a hematoma at venipuncture site and petechiae of the LE's. COPD: Continue nebs/inhalers. Hyperglycemia: Steroid induced. SSI. Acute hypoxic resp failure: Supplemental oxygen.
[2019-06-15] MEDS ORDERED: Furosemide 40 MG/4 ML VIAL SLOW IVP SCH (12:30)
[2019-06-15] MEDS ORDERED: Potassium Chloride 20 MEQ TAB PO SCH (12:30)
[2019-06-15] MEDS ORDERED: Carvedilol 6.25 MG TAB PO SCH ×2 (13:00→21:00)
[2019-06-15] MEDS: cefTRIAXone\\ROCEPHIN 1 GM in Sodium Chloride 0.9% 100 ML IVPB SCH (13:53)
--- NOTE | 2019-06-15 15:25 | CON ---
DATE OF CONSULTATION: REASON FOR CONSULTATION: Pneumonia. HISTORY OF PRESENT ILLNESS: A 78-year-old with history of COPD, lymphoma, renal cancer with splenic mets and mitral valve regurg with an artificial metallic valve in 2009 as well as osteoarthritis and atrial fibrillation, who over the past 2 weeks has developed progressively worsening dyspnea. She lives in an independent living situation at [place] and apparently was taken off prednisone and started having trouble breathing. Little bit of cough, but no sputum production. No fever reported and no headaches. No visual symptoms, sore throat, odynophagia, or dysphagia. No changes in her ability to taste or smell things. No diarrhea. No genitourinary symptoms. PAST MEDICAL HISTORY: Lymphoma and kidney cancer with splenic mets in remission since 2016. She had a mitral valve replacement with metallic valve in 2009, osteoarthritis, hyperlipidemia, and atrial fibrillation. PAST SURGICAL HISTORY: Also includes a bladder suspension, oophorectomy, hernia repair, hysterectomy, appendectomy, and nephrectomy. SOCIAL HISTORY: She has three children, but most of them have already. She quit smoking after 50 years of smoking. She used to work in a [employer] store. ALLERGIES: CODEINE. CURRENT MEDICATIONS: 1. Proventil. 2. Xanax. 3. Lipitor. 4. Coreg. 5. Rocephin. 6. Doxycycline. 7. Feosol. 8. Lasix. 9. Insulin. 10. Zoloft. PHYSICAL EXAMINATION: VITAL SIGNS: T-max 98.4, blood pressure 116/53, pulse 99, respirations 18 to 22, O2 saturation 95 O2 flow rate at 4 L per nasal cannula. SKIN: She has a peripheral IV access and she is urinating in the diaper. No lymphadenopathy. HEENT: Ocular movements conjugate. Sclerae white. Pupils are equal. Oral cavity is not remarkable. NECK: Supple. LUNGS: With expiratory wheezing right and left side. HEART: S1 and S2. Regular rate. ABDOMEN: Soft, not distended or tender. No ascites. No bladder distention. EXTREMITIES: She has osteoarthrosis in knees and ankles. There is not much edema, although there is some pulses 1+ in dorsalis pedis. Moves all extremities. NEUROLOGIC: She is awake and oriented, follows commands. LABORATORY DATA: White cell count is 13.6 and now 8.7, hemoglobin 9.5, MCV 93.9, and platelets 227 with 88% neutrophils. The INR was extremely elevated, but now it is back down to 1.7. COVID PCR is not detected. Two sets of blood cultures, no growth. Chest x-ray with bilateral infiltrates. The BNP was 813. ASSESSMENT: Chronic obstructive pulmonary disease, mitral valve replacement, atrial fibrillation, progressively worsening dyspnea over the past 2 weeks after interruption of corticosteroids, and concerned with COVID-19 infection. DISCUSSION: The differential diagnosis includes pulmonary edema versus superimposed community-acquired pneumonia. The usual pathogens, COVID-19 is less likely in view of the absent features, although it is impossible to completely rule it out. The relatively low prevalence of the viral infection in this community; however, makes it less likely. We will do one more test to be on the safe side and then stop off the isolation protocol. Submit Legionella and strep pneumo antigen in urine and consider a repeat echocardiogram. Job ID: [id number]
[2019-06-15] MEDS: Prazosin HCl 1 MG CAP PO SCH (21:23)
[2019-06-15] MEDS: traZODone HCl 50 MG TAB PO SCH (21:23)
[2019-06-15] MEDS: Pramipexole Di-HCl 0.25 MG TAB PO SCH (21:23)
[2019-06-15] MEDS: Enoxaparin Sodium 100 MG/ML SYRINGE SC SCH (21:23)
[2019-06-15] MEDS: Atorvastatin Calcium 40 MG TAB PO SCH (21:23)
[2019-06-16] MEDS: Docusate 100 MG CAP PO PRN (00:24)
[2019-06-16] MEDS: Levothyroxine 150 MCG TAB PO SCH (04:18)
[2019-06-16] MEDS: Albuterol 200 PUFF (6.7GM INHALER) INH SCH ×5 (04:46→23:33)
[2019-06-16 04:58] LABS: INR-International Normal Ratio 1.4
[2019-06-16 04:59] LABS: PTT 44.4 SEC (22.9-36.1)
[2019-06-16 09:03] LABS: Anion Gap 12 mmol/L (10-20); BUN (Urea Nitrogen) 31 mg/dL (9.8-20.1); Calc. Creatinine Clearance 55 mL/min (70-130); Calcium 8.9 mg/dL (7.8-10.44); Carbon Dioxide 32 mmol/L (23-31); Chloride 102 mmol/L (98-107); Estimated GFR-MDRD 35; Glucose 92 mg/dL (83-110); Potassium 4.3 mmol/L (3.5-5.1); Sodium 142 mmol/L (136-145)
--- NOTE | 2019-06-16 09:21 | RAD ---
CHEST 1 VIEW: Date: 06/16/2019 HISTORY: Bilateral infiltrates. Shortness of breath. COMPARISON: 06/14/2019. FINDINGS: Postop midline sternotomy and valvular replacement with minimal cardiomegaly. Patchy bilateral vascul ar congestion with some patchy alveolar and ground-glass opacity and interstitial changes throughout both lungs, possibly slightly worse when compared to the prior study. IMPRESSION: Persistent probably slightly worse scattered alveolar and ground-glass opacity and interstitial valerio es bilaterally. POS: [facility]
[2019-06-16] MEDS: ALPRAZolam 0.25 MG TAB PO SCH ×4 (09:22→20:44)
[2019-06-16] MEDS: Ferrous Sulfate 325 MG TAB PO SCH ×2 (09:22→17:02)
[2019-06-16] MEDS: Ascorbic Acid 500 mg Chewable Tablet PO SCH (09:23)
[2019-06-16] MEDS: Furosemide 40 MG TAB PO SCH (09:23)
[2019-06-16] MEDS: Calcium Carbonate 600 MG + Vit D TAB PO SCH (09:23)
[2019-06-16] MEDS: Pantoprazole 40 MG VIAL IVP SCH (09:23)
[2019-06-16] MEDS: Enoxaparin Sodium 100 MG/ML SYRINGE SC SCH ×2 (09:24→22:25)
[2019-06-16] MEDS: cefTRIAXone\\ROCEPHIN 1 GM in Sodium Chloride 0.9% 100 ML IVPB SCH ×2 (13:36→17:00)
[2019-06-16] MEDS ORDERED: Furosemide 40 MG/4 ML VIAL SLOW IVP SCH (15:45)
[2019-06-16] MEDS: Carvedilol 6.25 MG TAB PO SCH (17:02)
[2019-06-16] MEDS: Warfarin Sodium 5 MG TAB PO SCH (17:03)
--- NOTE | 2019-06-16 17:04 | PDOC.HOSPP ---
- Subjective Encounter Date: 06/16/19 Subjective: Still feels bad. Primarily because she gets BRYANT. No SOB at rest. Has been voiding well with the Lasix. Doxy is burning the vein. - Objective Vital Signs & Weight: Vital Signs (12 hours) Temp Pulse Resp BP Pulse Ox 06/16/19 16:17 98.4 F 101 H 16 122/63 100 06/16/19 12:14 97.9 F 105 H 22 H 122/68 96 06/16/19 09:25 93 L 06/16/19 09:20 97.4 F L 107 H 22 H 117/72 93 L Weight Admit Weight 240 lb Weight 243 lb 1.6 oz I&O: 06/15/19 06/16/19 06/17/19 06:59 06:59 06:59 Intake Total 400 680 Output Total 850 2600 Balance -450 -3170 Result Diagrams: 06/15/19 05:10 06/16/19 04:44 Additional Labs: Accuchecks 06/16/19 06/16/19 06/15/19 12:14 04:32 21:32 POC Glucose 131 H 123 H 162 H Hospitalist ROS - Medication Medications: Active Medications Generic Name Dose Route Start Last Admin Trade Name Freq PRN Reason Stop Dose Admin Albuterol Sulfate 4 puff 06/14/19 19:00 06/16/19 12:22 Proventil Hfa INH Not Given [id number] [facility] Alprazolam 0.25 mg 06/14/19 21:00 06/16/19 12:04 Xanax PO 0.25 mg QID LISA Administration Ascorbic Acid 500 mg 06/15/19 09:00 06/16/19 09:23 Vitamin C PO 500 mg DAILY LISA Administration Atorvastatin Calcium 40 mg 06/14/19 21:00 06/15/19 21:23 Lipitor PO 40 mg HS LISA Administration Calcium/Vitamin D 1 tab 06/15/19 09:00 06/16/19 09:23 Caltrate 600 + Vit D PO 1 tab DAILY LISA Administration Docusate Sodium 100 mg 06/15/19 22:41 06/16/19 00:24 Colace PO 100 mg BIDPRN PRN Administration Constipation Enoxaparin Sodium 100 mg 06/15/19 21:00 06/16/19 09:24 Lovenox SC 100 mg 0900,2100 LISA Administration Ferrous Sulfate 325 mg 06/15/19 08:00 06/16/19 09:22 Feosol PO 325 mg BID-WM LISA Administration Ceftriaxone Sodium 1 gm/ 100 mls @ 200 mls/hr 06/15/19 14:00 06/15/19 13:53 Sodium Chloride IVPB 100 mls 1400 LISA Administration Levothyroxine Sodium 150 mcg 06/15/19 06:00 06/16/19 04:18 Synthroid PO 150 mcg 0600 LISA Administration Pantoprazole Sodium 40 mg 06/15/19 09:00 06/16/19 09:23 Protonix IVP 40 mg DAILY LISA Administration Pramipexole Dihydrochloride 0.5 mg 06/14/19 21:00 06/15/19 21:23 Mirapex PO 0.5 mg HS LISA Administration Prazosin HCl 1 mg 06/14/19 21:00 06/15/19 21:23 Minipress PO 1 mg HS LISA Administration Quetiapine Fumarate 300 mg 06/14/19 21:00 06/15/19 21:23 Seroquel PO 300 mg HS LISA Administration Sertraline HCl 100 mg 06/15/19 09:00 06/16/19 09:23 Zoloft PO 100 mg DAILY LISA Administration Sodium Chloride 10 ml 06/14/19 16:31 06/15/19 21:24 Flush - Normal Saline IVF 10 ml PRN PRN Administration Saline Flush Trazodone HCl 50 mg 06/14/19 21:00 06/15/19 21:23 Desyrel PO 50 mg HS LISA Administration - Exam General Appearance: NAD, awake alert General - other findings: Morbidly obese. ENT: normocephalic atraumatic, no oropharyngeal lesions, moist mucosa Heart: RRR, no murmur, no gallops, no rubs, normal peripheral pulses Respiratory: CTAB, no wheezes, no rales, no ronchi, normal chest expansion, no tachypnea, normal percussion Gastrointestinal: soft, non-tender, non-distended, normal bowel sounds, no palpable masses, no hepatomegaly, no splenomegaly, no bruit Extremities: no cyanosis, no clubbing, no edema Skin: normal turgor, no lesions, no rashes Neurological: no focal deficits Musculoskeletal: normal tone Psychiatric: normal affect, normal behavior, A&O x 3 Hosp A/P (1) Bilateral pneumonia Code(s): J18.9 - PNEUMONIA, UNSPECIFIED ORGANISM Status: Acute (2) Supratherapeutic INR Code(s): R79.1 - ABNORMAL COAGULATION PROFILE Status: Resolved (3) Suspected COVID-19 virus infection Code(s): R68.89 - OTHER GENERAL SYMPTOMS AND SIGNS Status: Acute (4) CKD (chronic kidney disease), stage III Code(s): N18.3 - CHRONIC KIDNEY DISEASE, STAGE 3 (MODERATE) Status: Chronic (5) Chronic a-fib Code(s): I48.20 - CHRONIC ATRIAL FIBRILLATION, UNSPECIFIED Status: Chronic (6) Dyslipidemia Code(s): E78.5 - HYPERLIPIDEMIA, UNSPECIFIED Status: Chronic (7) HTN (hypertension) Code(s): I10 - ESSENTIAL (PRIMARY) HYPERTENSION Status: Chronic (8) Acute exacerbation of CHF (congestive heart failure) Code(s): I50.9 - HEART FAILURE, UNSPECIFIED Status: Acute Qualifiers: Heart failure type: systolic Qualified Code(s): I50.23 - Acute on chronic systolic (congestive) heart failure (9) COPD exacerbation Code(s): J44.1 - CHRONIC OBSTRUCTIVE PULMONARY DISEASE W (ACUTE) EXACERBATION Status: Acute (10) Stasis dermatitis of both legs Code(s): I87.2 - VENOUS INSUFFICIENCY (CHRONIC) (PERIPHERAL) Status: Acute (11) CAD (coronary artery disease) Code(s): I25.10 - ATHSCL HEART DISEASE OF [place] CORONARY ARTERY W/O ANG PCTRS Status: Chronic Qualifiers: Coronary Disease-Associated Artery/Lesion type: [place] artery [place] vs. transplanted heart: [place] heart Associated angina: without angina Qualified Code(s): I25.10 - Atherosclerotic heart disease of [place] coronary artery without angina pectoris (12) H/O mitral valve replacement with mechanical valve Code(s): Z95.2 - PRESENCE OF PROSTHETIC HEART VALVE Status: Chronic (13) H/O unilateral nephrectomy Code(s): Z90.5 - ACQUIRED ABSENCE OF KIDNEY Status: Chronic - Plan Pneumonia: Unclear if this if infiltrate or edema. Covid test was negative. Repeat pending. Did report modestly productive cough on admission. Pro's - bilateral peripheral infiltrates, nml wbc with lymphopenia. Con's - Afebrile, only BRYANT and not at rest, negative test. Will continue abx for CAP. Change the Doxy to po. CHF: Prior echo with EF 40% Suspect her CXR findings are related to CHF. Additional dose of lasix again today. She does say she has been on Coreg although it was not originally on her med list. Resume the coreg. Afib: Hx of being on multaq, but has been off for a couple of months. Prosthetic Mitral Valve: Will need to cover her with Lovenox until the INR is back in the therapeutic range. Supratherapeutic INR: Severely elevated. Improved with vitamin K, but now below the therapeutic window for a heart valve. Resulted in a hematoma at venipuncture site and petechiae of the LE's. COPD: Continue nebs/inhalers. Hyperglycemia: Steroid induced. SSI. Acute hypoxic resp failure: Supplemental oxygen. Dispo: Discussed advance directives with PCT. Discussed again with me. She says she had once. She was declared and was on her way to see God. She was not happy when she woke. She is ready to see God and is not interested in any "heroics". She is only amenable to intubation and only wants ventilation for 24 hours. This is to make sure her family knows she didn't do nothing. She does not want any other forms of resuscitation.
--- NOTE | 2019-06-16 17:09 | PDOC.FMACP ---
Advance Care Planning - Problem (1) Bilateral pneumonia Status: Acute Code(s): J18.9 - PNEUMONIA, UNSPECIFIED ORGANISM (2) Supratherapeutic INR Status: Resolved Code(s): R79.1 - ABNORMAL COAGULATION PROFILE (3) Suspected COVID-19 virus infection Status: Acute Code(s): R68.89 - OTHER GENERAL SYMPTOMS AND SIGNS (4) CKD (chronic kidney disease), stage III Status: Chronic Code(s): N18.3 - CHRONIC KIDNEY DISEASE, STAGE 3 (MODERATE) (5) Chronic a-fib Status: Chronic Code(s): I48.20 - CHRONIC ATRIAL FIBRILLATION, UNSPECIFIED (6) Dyslipidemia Status: Chronic Code(s): E78.5 - HYPERLIPIDEMIA, UNSPECIFIED (7) HTN (hypertension) Status: Chronic Code(s): I10 - ESSENTIAL (PRIMARY) HYPERTENSION (8) Acute exacerbation of CHF (congestive heart failure) Status: Acute Code(s): I50.9 - HEART FAILURE, UNSPECIFIED Qualifiers: Heart failure type: systolic Qualified Code(s): I50.23 - Acute on chronic systolic (congestive) heart failure (9) COPD exacerbation Status: Acute Code(s): J44.1 - CHRONIC OBSTRUCTIVE PULMONARY DISEASE W (ACUTE ) EXACERBATION (10) Stasis dermatitis of both legs Status: Acute Code(s): I87.2 - VENOUS INSUFFICIENCY (CHRONIC) (PERIPHERAL) (11) CAD (coronary artery disease) Status: Chronic Code(s): I25.10 - ATHSCL HEART DISEASE OF [place] CORONARY ARTERY W/O ANG PCTRS Qualifiers: Coronary Disease-Associated Artery/Lesion type: [place] artery [place] vs. transplanted heart: [place] heart Associated angina: without angina Qualified Code(s): I25.10 - Atherosclerotic heart disease of [place] coronary artery without angina pectoris (12) H/O mitral valve replacement with mechanical valve Status: Chronic Code(s): Z95.2 - PRESENCE OF PROSTHETIC HEART VALVE (13) H/O unilateral nephrectomy Status: Chronic Code(s): Z90.5 - ACQUIRED ABSENCE OF KIDNEY - Note Participants: patient Summary: Advanced Care Planning was discussed. The diagnosis, prognosis and goals of care were discussed. Appropriate forms and documentation to accomplish the goals of care were discussed. All questions were answered. Discussed advance directives with PCT. Discussed again with me. She says she had once. She was declared and was on her way to see God. She was not happy when she woke. She is ready to see God and is not interested in any "heroics". She is only amenable to intubation and only wants ventilation for 24 hours. This is to make sure her family knows she didn't do nothing. She does not want any other forms of resuscitation. The Palliative Care Team will be engaged to assist with completion of any outstanding forms that are needed. Time Spent (mins): 17
[2019-06-16] MEDS: Atorvastatin Calcium 40 MG TAB PO SCH (20:44)
[2019-06-16] MEDS: Prazosin HCl 1 MG CAP PO SCH (20:45)
[2019-06-16] MEDS: Pramipexole Di-HCl 0.25 MG TAB PO SCH (20:45)
[2019-06-16] MEDS: traZODone HCl 50 MG TAB PO SCH (20:45)
[2019-06-16] MEDS: Doxycycline 100 MG CAP PO SCH (20:45)
[2019-06-16] MEDS ORDERED: guaiFENesin 200 MG TAB PO PRN (21:17)
[2019-06-17 05:06] LABS: Hemoglobin 8.5 g/dL (12.0-16.0); Platelet Count 198 thou/uL (130-400)
[2019-06-17 05:09] LABS: INR-International Normal Ratio 1.5; Prothrombin Time 18.3 SEC (12.0-14.7)
[2019-06-17 05:28] LABS: Anion Gap 14 mmol/L (10-20); BUN (Urea Nitrogen) 34 mg/dL (9.8-20.1); Calc. Creatinine Clearance 53 mL/min (70-130); Carbon Dioxide 32 mmol/L (23-31); Chloride 99 mmol/L (98-107); Estimated GFR-MDRD 34; Glucose 82 mg/dL (83-110); Potassium 3.5 mmol/L (3.5-5.1); Sodium 141 mmol/L (136-145)
[2019-06-17] MEDS: Furosemide 40 MG/4 ML VIAL SLOW IVP SCH ×2 (06:59→14:04)
[2019-06-17] MEDS: Levothyroxine 150 MCG TAB PO SCH (06:59)
[2019-06-17] MEDS: Albuterol 200 PUFF (6.7GM INHALER) INH SCH ×3 (07:00→22:02)
[2019-06-17] MEDS: Carvedilol 6.25 MG TAB PO SCH ×2 (08:39→16:45)
[2019-06-17] MEDS: Ferrous Sulfate 325 MG TAB PO SCH ×2 (08:40→16:45)
[2019-06-17] MEDS: ALPRAZolam 0.25 MG TAB PO SCH ×4 (08:40→22:07)
[2019-06-17] MEDS: Calcium Carbonate 600 MG + Vit D TAB PO SCH (08:40)
[2019-06-17] MEDS: Ascorbic Acid 500 mg Chewable Tablet PO SCH (08:40)
[2019-06-17] MEDS: Doxycycline 100 MG CAP PO SCH ×2 (08:40→22:05)
[2019-06-17] MEDS: Pantoprazole 40 MG VIAL IVP SCH (08:41)
[2019-06-17] MEDS: Enoxaparin Sodium 100 MG/ML SYRINGE SC SCH ×2 (08:41→22:07)
[2019-06-17] MEDS: cefTRIAXone\\ROCEPHIN 1 GM in Sodium Chloride 0.9% 100 ML IVPB SCH (14:08)
--- NOTE | 2019-06-17 15:19 | PDOC.HOSPP ---
- Subjective Encounter Date: 06/17/19 Subjective: Doing ok, but still has BRYANT. No other complaints. Responding well to the diuretics. Says she feels better when she gets the Lasix and voids a few times. - Objective Vital Signs & Weight: Vital Signs (12 hours) Temp Pulse Resp BP Pulse Ox 06/17/19 11:05 97.6 F 93 18 115/53 L 96 06/17/19 07:40 96.9 F L 99 16 141/79 H 94 L 06/17/19 07:33 100 06/17/19 03:26 98.3 F 88 14 111/70 100 Weight Admit Weight 240 lb Weight 240 lb 9.6 oz I&O: 06/16/19 06/17/19 06/18/19 06:59 06:59 06:59 Intake Total 680 1710 720 Output Total 2600 400 950 Balance -1920 1310 -230 Result Diagrams: 06/17/19 04:37 06/17/19 04:37 Additional Labs: Accuchecks 06/17/19 06/16/19 06/16/19 11:17 20:55 17:02 POC Glucose 158 H 155 H 136 H Hospitalist ROS - Medication Medications: Active Medications Generic Name Dose Route Start Last Admin Trade Name Freq PRN Reason Stop Dose Admin Albuterol Sulfate 4 puff 06/14/19 19:00 06/17/19 12:29 Proventil Hfa INH 4 puff [id number] LISA Administration Albuterol Sulfate 2 puff 06/14/19 16:51 06/16/19 20:46 Proventil Hfa INH 2 puff Q4H PRN Administration SOB &/or Wheezing Alprazolam 0.25 mg 06/14/19 21:00 06/17/19 12:28 Xanax PO 0.25 mg QID LISA Administration Ascorbic Acid 500 mg 06/15/19 09:00 06/17/19 08:40 Vitamin C PO 500 mg DAILY LISA Administration Atorvastatin Calcium 40 mg 06/14/19 21:00 06/16/19 20:44 Lipitor PO 40 mg HS LISA Administration Calcium/Vitamin D 1 tab 06/15/19 09:00 06/17/19 08:40 Caltrate 600 + Vit D PO 1 tab DAILY LISA Administration Carvedilol 6.25 mg 06/16/19 17:00 06/17/19 08:39 Coreg PO 6.25 mg BID-WM LISA Administration Docusate Sodium 100 mg 06/15/19 22:41 06/16/19 00:24 Colace PO 100 mg BIDPRN PRN Administration Constipation Doxycycline Hyclate 100 mg 06/16/19 21:00 06/17/19 08:40 Vibramycin PO 100 mg BID LISA Administration Enoxaparin Sodium 100 mg 06/15/19 21:00 06/17/19 08:41 Lovenox SC 100 mg 0900,2100 LISA Administration Ferrous Sulfate 325 mg 06/15/19 08:00 06/17/19 08:40 Feosol PO 325 mg BID-WM LISA Administration Furosemide 40 mg 06/17/19 06:00 06/17/19 14:04 Lasix SLOW IVP 40 mg 0600,1400 LISA Administration Guaifenesin 200 mg 06/16/19 21:17 06/16/19 22:26 Organ-I Nr PO 200 mg Q4H PRN Administration Congestion Ceftriaxone Sodium 1 gm/ 100 mls @ 200 mls/hr 06/15/19 14:00 06/17/19 14:08 Sodium Chloride IVPB 100 mls 1400 LISA Administration Levothyroxine Sodium 150 mcg 06/15/19 06:00 06/17/19 06:59 Synthroid PO 150 mcg 0600 LISA Administration Pantoprazole Sodium 40 mg 06/15/19 09:00 06/17/19 08:41 Protonix IVP 40 mg DAILY LISA Administration Pramipexole Dihydrochloride 0.5 mg 06/14/19 21:00 06/16/19 20:45 Mirapex PO 0.5 mg HS LISA Administration Prazosin HCl 1 mg 06/14/19 21:00 06/16/19 20:45 Minipress PO 1 mg HS LISA Administration Quetiapine Fumarate 300 mg 06/14/19 21:00 06/16/19 20:45 Seroquel PO 300 mg HS LISA Administration Sertraline HCl 100 mg 06/15/19 09:00 06/17/19 08:40 Zoloft PO 100 mg DAILY LISA Administration Sodium Chloride 10 ml 06/14/19 16:31 06/17/19 14:04 Flush - Normal Saline IVF 10 ml PRN PRN Administration Saline Flush Trazodone HCl 50 mg 06/14/19 21:00 06/16/19 20:45 Desyrel PO 50 mg HS LISA Administration Warfarin Sodium 5 mg 06/16/19 17:00 06/16/19 17:03 Coumadin PO 5 mg 1700 LISA Administration - Exam General Appearance: NAD, awake alert General - other findings: Morbidly obese. Heart: RRR, no murmur, no gallops, no rubs, normal peripheral pulses Respiratory: CTAB, no wheezes, no rales, no ronchi, normal chest expansion, no tachypnea, normal percussion Gastrointestinal: soft, non-tender, non-distended, normal bowel sounds, no palpable masses, no hepatomegaly, no splenomegaly, no bruit Extremities: no cyanosis Skin: normal turgor Neurological: no focal deficits Musculoskeletal: normal tone, normal strength, no muscle wasting Psychiatric: normal affect, normal behavior, A&O x 3 Hosp A/P (1) Bilateral pneumonia Code(s): J18.9 - PNEUMONIA, UNSPECIFIED ORGANISM Status: Acute (2) Supratherapeutic INR Code(s): R79.1 - ABNORMAL COAGULATION PROFILE Status: Resolved (3) Suspected COVID-19 virus infection Code(s): R68.89 - OTHER GENERAL SYMPTOMS AND SIGNS Status: Acute (4) CKD (chronic kidney disease), stage III Code(s): N18.3 - CHRONIC KIDNEY DISEASE, STAGE 3 (MODERATE) Status: Chronic (5) Chronic a-fib Code(s): I48.20 - CHRONIC ATRIAL FIBRILLATION, UNSPECIFIED Status: Chronic (6) Dyslipidemia Code(s): E78.5 - HYPERLIPIDEMIA, UNSPECIFIED Status: Chronic (7) HTN (hypertension) Code(s): I10 - ESSENTIAL (PRIMARY) HYPERTENSION Status: Chronic (8) Acute exacerbation of CHF (congestive heart failure) Code(s): I50.9 - HEART FAILURE, UNSPECIFIED Status: Acute Qualifiers: Heart failure type: systolic Qualified Code(s): I50.23 - Acute on chronic systolic (congestive) heart failure (9) COPD exacerbation Code(s): J44.1 - CHRONIC OBSTRUCTIVE PULMONARY DISEASE W (ACUTE) EXACERBATION Status: Acute (10) Stasis dermatitis of both legs Code(s): I87.2 - VENOUS INSUFFICIENCY (CHRONIC) (PERIPHERAL) Status: Acute (11) CAD (coronary artery disease) Code(s): I25.10 - ATHSCL HEART DISEASE OF [place] CORONARY ARTERY W/O ANG PCTRS Status: Chronic Qualifiers: Coronary Disease-Associated Artery/Lesion type: [place] artery [place] vs. transplanted heart: [place] heart Associated angina: without angina Qualified Code(s): I25.10 - Atherosclerotic heart disease of [place] coronary artery without angina pectoris (12) H/O mitral valve replacement with mechanical valve Code(s): Z95.2 - PRESENCE OF PROSTHETIC HEART VALVE Status: Chronic (13) H/O unilateral nephrectomy Code(s): Z90.5 - ACQUIRED ABSENCE OF KIDNEY Status: Chronic - Plan Pneumonia: Unclear if this if infiltrate or edema. 2nd Covid test was negative. Will continue abx for CAP. Change the Doxy to po. More likely pulm edema at this point. CHF: Prior echo with EF 40% Suspect her CXR findings are related to CHF. Scheduled lasix. Continue Coreg. Afib: Hx of being on multaq, but has been off for a couple of months. Good rate control now. Prosthetic Mitral Valve: Will need to cover her with Lovenox until the INR is back in the therapeutic range. Supratherapeutic INR: Severely elevated. Improved with vitamin K, but now below the therapeutic window for a heart valve. Resulted in a hematoma at venipuncture site and petechiae of the LE's. COPD: Continue nebs/inhalers. Hyperglycemia: Steroid induced. SSI. Acute hypoxic resp failure: Supplemental oxygen. Dispo: Discussed advance directives with PCT. Discussed again with me. She says she had once. She was declared and was on her way to see God. She was not happy when she woke. She is ready to see God and is not interested in any "heroics". She is only amenable to intubation and only wants ventilation for 24 hours. This is to make sure her family knows she didn't do nothing. She does not want any other forms of resuscitation.
[2019-06-17] MEDS: Warfarin Sodium 5 MG TAB PO SCH (16:45)
[2019-06-17] MEDS: Docusate 100 MG CAP PO PRN (16:47)
[2019-06-17] MEDS: Pramipexole Di-HCl 0.25 MG TAB PO SCH (22:05)
[2019-06-17] MEDS: Prazosin HCl 1 MG CAP PO SCH (22:07)
[2019-06-17] MEDS: Atorvastatin Calcium 40 MG TAB PO SCH (22:07)
[2019-06-17] MEDS: traZODone HCl 50 MG TAB PO SCH (22:07)
[2019-06-18] MEDS: Albuterol 200 PUFF (6.7GM INHALER) INH SCH ×4 (01:54→19:09)
[2019-06-18 04:57] LABS: Hemoglobin 8.8 g/dL (12.0-16.0); Platelet Count 209 thou/uL (130-400)
[2019-06-18 05:19] LABS: INR-International Normal Ratio 1.9; Prothrombin Time 21.8 SEC (12.0-14.7)
[2019-06-18 05:21] LABS: Anion Gap 13 mmol/L (10-20); BUN (Urea Nitrogen) 36 mg/dL (9.8-20.1); Calc. Creatinine Clearance 48 mL/min (70-130); Calcium 9.2 mg/dL (7.8-10.44); Carbon Dioxide 35 mmol/L (23-31); Chloride 99 mmol/L (98-107); Estimated GFR-MDRD 30; Glucose 107 mg/dL (83-110); Potassium 3.7 mmol/L (3.5-5.1); Sodium 143 mmol/L (136-145)
[2019-06-18] MEDS: Furosemide 40 MG/4 ML VIAL SLOW IVP SCH ×2 (06:13→13:24)
[2019-06-18] MEDS: Levothyroxine 150 MCG TAB PO SCH (06:13)
--- NOTE | 2019-06-18 08:53 | RAD ---
Chest one view HISTORY: Dyspnea. Follow-up. COMPARISON: 06/16/2019. FINDINGS: Cardiac silhouette remains magnified and enlarged. Pulmonary vasculature upper limits of no rmal. Mediastinum is midline with aortic calcification and postoperative changes. Ill-defined, patchy areas of parenchymal infiltrate involving each lung are again demonstrated. Right infiltrate slightly improved from the 06/14/2019 exam. No evidence of pneumothorax. seating and mobility technologist leads overlie the chest. IMPRESSION : Slight interval improvement in radiographic appearance of patchy right lung infiltrates. Other findin gs are stable.
[2019-06-18] MEDS: Ferrous Sulfate 325 MG TAB PO SCH ×2 (09:20→17:07)
[2019-06-18] MEDS: Carvedilol 6.25 MG TAB PO SCH ×2 (09:20→17:06)
[2019-06-18] MEDS: Doxycycline 100 MG CAP PO SCH ×2 (09:21→22:25)
[2019-06-18] MEDS: Pantoprazole 40 MG VIAL IVP SCH (09:21)
[2019-06-18] MEDS: Calcium Carbonate 600 MG + Vit D TAB PO SCH (09:21)
[2019-06-18] MEDS: Ascorbic Acid 500 mg Chewable Tablet PO SCH (09:21)
[2019-06-18] MEDS: ALPRAZolam 0.25 MG TAB PO SCH ×4 (09:21→22:25)
[2019-06-18] MEDS: Enoxaparin Sodium 100 MG/ML SYRINGE SC SCH ×2 (09:22→22:25)
[2019-06-18] MEDS: cefTRIAXone\\ROCEPHIN 1 GM in Sodium Chloride 0.9% 100 ML IVPB SCH (13:25)
--- NOTE | 2019-06-18 15:22 | EKG ---
Test Reason : SOB Blood Pressure : / mmHG Vent. Rate : 097 BPM Atrial Rate : 227 BPM P-R Int : 000 ms QRS Dur : 084 ms QT Int : 370 ms P-R-T Axes : 000 -32 054 degrees QTc Int : 469 ms Atrial fibrillation Left axis deviation Abnormal ECG Confirmed by LINDA ORONA DO ([id number]), photography editor FAVIAN CARRILLO ([id number]) on 06/18/2019 3:21:54 PM Referred By: Confirmed By:LINDA ORONA DO
--- NOTE | 2019-06-18 16:54 | PDOC.HOSPP ---
- Subjective Encounter Date: 06/18/19 Subjective: Voiding well. Does not feels dramatically better with her breathing. Has refused to work with PT, but says she has been out of bed. - Objective Vital Signs & Weight: Vital Signs (12 hours) Temp Pulse Resp BP Pulse Ox 06/18/19 15:26 98.8 F 78 20 127/68 96 06/18/19 11:26 98 F 113 H 21 H 122/60 06/18/19 07:49 97.9 F 110 H 16 137/66 95 06/18/19 06:34 90 L Weight Admit Weight 240 lb Weight 240 lb 9.6 oz I&O: 06/17/19 06/18/19 06/19/19 06:59 06:59 06:59 Intake Total 1710 1240 480 Output Total 400 2700 1850 Balance 1310 -1460 -1370 Result Diagrams: 06/18/19 04:46 06/18/19 04:46 Additional Labs: Accuchecks 06/18/19 06/18/19 06/18/19 16:42 10:51 05:52 POC Glucose 139 H 170 H 113 H 06/17/19 21:03 POC Glucose 199 H Hospitalist ROS - Medication Medications: Active Medications Generic Name Dose Route Start Last Admin Trade Name Freq PRN Reason Stop Dose Admin Albuterol Sulfate 4 puff 06/14/19 19:00 06/18/19 12:55 Proventil Hfa INH 4 puff [id number] LISA Administration Albuterol Sulfate 2 puff 06/14/19 16:51 06/16/19 20:46 Proventil Hfa INH 2 puff Q4H PRN Administration SOB &/or Wheezing Alprazolam 0.25 mg 06/14/19 21:00 06/18/19 13:24 Xanax PO 0.25 mg QID LISA Administration Ascorbic Acid 500 mg 06/15/19 09:00 06/18/19 09:21 Vitamin C PO 500 mg DAILY LISA Administration Atorvastatin Calcium 40 mg 06/14/19 21:00 06/17/19 22:07 Lipitor PO 40 mg HS LISA Administration Calcium/Vitamin D 1 tab 06/15/19 09:00 06/18/19 09:21 Caltrate 600 + Vit D PO 1 tab DAILY LISA Administration Carvedilol 6.25 mg 06/16/19 17:00 06/18/19 09:20 Coreg PO 6.25 mg BID-WM LISA Administration Docusate Sodium 100 mg 06/15/19 22:41 06/17/19 16:47 Colace PO 100 mg BIDPRN PRN Administration Constipation Doxycycline Hyclate 100 mg 06/16/19 21:00 06/18/19 09:21 Vibramycin PO 100 mg BID LISA Administration Enoxaparin Sodium 100 mg 06/15/19 21:00 06/18/19 09:22 Lovenox SC 100 mg 0900,2100 LISA Administration Ferrous Sulfate 325 mg 06/15/19 08:00 06/18/19 09:20 Feosol PO 325 mg BID-WM LISA Administration Furosemide 40 mg 06/17/19 06:00 06/18/19 13:24 Lasix SLOW IVP 40 mg 0600,1400 LISA Administration Guaifenesin 200 mg 06/16/19 21:17 06/16/19 22:26 Organ-I Nr PO 200 mg Q4H PRN Administration Congestion Ceftriaxone Sodium 1 gm/ 100 mls @ 200 mls/hr 06/15/19 14:00 06/18/19 13:25 Sodium Chloride IVPB 100 mls 1400 LISA Administration Levothyroxine Sodium 150 mcg 06/15/19 06:00 06/18/19 06:13 Synthroid PO 150 mcg 0600 LISA Administration Pantoprazole Sodium 40 mg 06/15/19 09:00 06/18/19 09:21 Protonix IVP 40 mg DAILY LISA Administration Pramipexole Dihydrochloride 0.5 mg 06/14/19 21:00 06/17/19 22:05 Mirapex PO 0.5 mg HS LISA Administration Prazosin HCl 1 mg 06/14/19 21:00 06/17/19 22:07 Minipress PO 1 mg HS LISA Administration Quetiapine Fumarate 300 mg 06/14/19 21:00 06/17/19 22:05 Seroquel PO 300 mg HS LISA Administration Sertraline HCl 100 mg 06/15/19 09:00 06/18/19 09:21 Zoloft PO 100 mg DAILY LISA Administration Sodium Chloride 10 ml 06/14/19 16:31 06/17/19 14:04 Flush - Normal Saline IVF 10 ml PRN PRN Administration Saline Flush Trazodone HCl 50 mg 06/14/19 21:00 06/17/19 22:07 Desyrel PO 50 mg HS LISA Administration Warfarin Sodium 5 mg 06/16/19 17:00 06/17/19 16:45 Coumadin PO 5 mg 1700 LISA Administration - Exam General Appearance: NAD, awake alert General - other findings: Morbidly obese. Heart: RRR, no murmur, no gallops, no rubs, normal peripheral pulses Respiratory: CTAB, no wheezes, no rales, no ronchi, normal chest expansion, no tachypnea, normal percussion Gastrointestinal: soft, non-tender, non-distended, normal bowel sounds, no palpable masses, no hepatomegaly, no splenomegaly, no bruit Extremities: no cyanosis, no clubbing, no edema Skin: normal turgor Neurological: no focal deficits Musculoskeletal: generalized weakness Psychiatric: normal affect, normal behavior, A&O x 3 Hosp A/P (1) Bilateral pneumonia Code(s): J18.9 - PNEUMONIA, UNSPECIFIED ORGANISM Status: Acute (2) Supratherapeutic INR Code(s): R79.1 - ABNORMAL COAGULATION PROFILE Status: Resolved (3) Suspected COVID-19 virus infection Code(s): R68.89 - OTHER GENERAL SYMPTOMS AND SIGNS Status: Ruled-out (4) CKD (chronic kidney disease), stage III Code(s): N18.3 - CHRONIC KIDNEY DISEASE, STAGE 3 (MODERATE) Status: Chronic (5) Chronic a-fib Code(s): I48.20 - CHRONIC ATRIAL FIBRILLATION, UNSPECIFIED Status: Chronic (6) Dyslipidemia Code(s): E78.5 - HYPERLIPIDEMIA, UNSPECIFIED Status: Chronic (7) HTN (hypertension) Code(s): I10 - ESSENTIAL (PRIMARY) HYPERTENSION Status: Chronic (8) Acute exacerbation of CHF (congestive heart failure) Code(s): I50.9 - HEART FAILURE, UNSPECIFIED Status: Acute Qualifiers: Heart failure type: systolic Qualified Code(s): I50.23 - Acute on chronic systolic (congestive) heart failure (9) COPD exacerbation Code(s): J44.1 - CHRONIC OBSTRUCTIVE PULMONARY DISEASE W (ACUTE) EXACERBATION Status: Acute (10) Stasis dermatitis of both legs Code(s): I87.2 - VENOUS INSUFFICIENCY (CHRONIC) (PERIPHERAL) Status: Acute (11) CAD (coronary artery disease) Code(s): I25.10 - ATHSCL HEART DISEASE OF [place] CORONARY ARTERY W/O ANG PCTRS Status: Chronic Qualifiers: Coronary Disease-Associated Artery/Lesion type: [place] artery [place] vs. transplanted heart: [place] heart Associated angina: without angina Qualified Code(s): I25.10 - Atherosclerotic heart disease of [place] coronary artery without angina pectoris (12) H/O mitral valve replacement with mechanical valve Code(s): Z95.2 - PRESENCE OF PROSTHETIC HEART VALVE Status: Chronic (13) H/O unilateral nephrectomy Code(s): Z90.5 - ACQUIRED ABSENCE OF KIDNEY Status: Chronic - Plan Pneumonia: Unclear if this if infiltrate or edema. 2nd Covid test was negative. Will continue abx for CAP. Change the Doxy to po. More likely pulm edema at this point. CHF: Prior echo with EF 40%, now lower. Suspect her CXR findings are related to CHF. Repeat today with some improvement. Scheduled lasix. Fluid restriction. Continue Coreg. Consult Cards in light of the worsening EF. Afib: Hx of being on multaq, but has been off for a couple of months. Good rate control now. Prosthetic Mitral Valve: Will need to cover her with Lovenox until the INR is back in the therapeutic range. Supratherapeutic INR: Severely elevated. Improved with vitamin K, but now below the therapeutic window for a heart valve. Resulted in a hematoma at venipuncture site and petechiae of the LE's. Goal is 2.5-3.5. COPD: Continue nebs/inhalers. Hyperglycemia: Steroid induced. SSI. Acute hypoxic resp failure: Supplemental oxygen. Dispo: Discussed advance directives with PCT. Discussed again with me. She says she had once. She was declared and was on her way to see God. She was not happy when she woke. She is ready to see God and is not interested in any "heroics". She is only amenable to intubation and only wants ventilation for 24 hours. This is to make sure her family knows she didn't do nothing. She does not want any other forms of resuscitation.
[2019-06-18] MEDS: Warfarin Sodium 5 MG TAB PO SCH (17:07)
[2019-06-18] MEDS: traZODone HCl 50 MG TAB PO SCH (22:24)
[2019-06-18] MEDS: Atorvastatin Calcium 40 MG TAB PO SCH (22:25)
[2019-06-18] MEDS: Pramipexole Di-HCl 0.25 MG TAB PO SCH (22:25)
[2019-06-18] MEDS: Prazosin HCl 1 MG CAP PO SCH (22:26)
[2019-06-18] MEDS: Docusate 100 MG CAP PO PRN (22:43)
[2019-06-19] MEDS: Albuterol 200 PUFF (6.7GM INHALER) INH SCH ×4 (00:45→19:00)
[2019-06-19 04:52] LABS: Hemoglobin 9.3 g/dL (12.0-16.0); Platelet Count 219 thou/uL (130-400)
[2019-06-19 04:58] LABS: INR-International Normal Ratio 2.1; Prothrombin Time 23.5 SEC (12.0-14.7)
[2019-06-19 04:59] LABS: PTT 93.8 SEC (22.9-36.1)
[2019-06-19 05:07] LABS: Anion Gap 14 mmol/L (10-20); BUN (Urea Nitrogen) 36 mg/dL (9.8-20.1); Calc. Creatinine Clearance 50 mL/min (70-130); Calcium 9.3 mg/dL (7.8-10.44); Carbon Dioxide 36 mmol/L (23-31); Chloride 98 mmol/L (98-107); Estimated GFR-MDRD 32; Glucose 102 mg/dL (83-110); Potassium 3.5 mmol/L (3.5-5.1); Sodium 144 mmol/L (136-145)
[2019-06-19] MEDS: Levothyroxine 150 MCG TAB PO SCH (05:43)
[2019-06-19] MEDS: Furosemide 40 MG/4 ML VIAL SLOW IVP SCH ×2 (05:46→13:56)
[2019-06-19] MEDS: Ascorbic Acid 500 mg Chewable Tablet PO SCH (09:50)
[2019-06-19] MEDS: ALPRAZolam 0.25 MG TAB PO SCH ×4 (09:50→21:05)
[2019-06-19] MEDS: Calcium Carbonate 600 MG + Vit D TAB PO SCH (09:50)
[2019-06-19] MEDS: Doxycycline 100 MG CAP PO SCH ×2 (09:51→21:05)
[2019-06-19] MEDS: Carvedilol 6.25 MG TAB PO SCH ×2 (09:51→17:20)
[2019-06-19] MEDS: Ferrous Sulfate 325 MG TAB PO SCH ×2 (09:51→17:18)
[2019-06-19] MEDS: Pantoprazole 40 MG VIAL IVP SCH (09:52)
[2019-06-19] MEDS: Enoxaparin Sodium 100 MG/ML SYRINGE SC SCH ×2 (09:55→21:05)
[2019-06-19] MEDS: cefTRIAXone\\ROCEPHIN 1 GM in Sodium Chloride 0.9% 100 ML IVPB SCH (13:59)
--- NOTE | 2019-06-19 15:26 | CON ---
DATE OF CONSULTATION: PRIMARY CARE DOCTOR: Ana Jones MD PRIMARY AUTOMATIC EMBROIDERY MACHINE TENDER: Dr. Silvestre at [facility]. PRIMARY PULMONARY: Dr. Luther at [facility]. GARAGE ATTENDANT: Dr. Meng. REASON FOR CARDIOLOGY CONSULT: Chronic heart failure, prosthetic mitral valve replacement, and worsening of the EF. HISTORY OF PRESENT ILLNESS: Ms. Clemens is a 78-year-old female with a significant history of coronary artery disease with stent placement, total stents placement x5, last procedure was [address] Pham at the [facility], permanent atrial fibrillation with weight control, chronic kidney disease, COPD/asthma, hypertension, hyperlipidemia, Hodgkin disease and lymphoma, kidney cancer, history of Staph infection in 2018, and congestive heart failure. She was seen by Dr. Silvestre for quite a while. The patient had followup with Dr. Silvestre two weeks ago for complaint of shortness of breath. The patient had a stress test and echocardiogram at the [facility], which was within normal range according to the patient, the patient was discharged. However, the patient started having shortness of breath. The patient has been on home O2 about 2 weeks ago start from 2.5 L, but prior to this admission, the patient was using 4 L an hour. At this moment, the patient denied any chest pain, heaviness, tightness, dizziness, or lightheadedness at this moment. The patient had chronic atrial fibrillation for at least 3 years. She has been on amiodarone and Multaq, which did not work. She had a cardioversion about two months ago, still she is converted back to atrial fibrillation. She is supposed to follow up with Dr. Syed for possible ablation. She has not been followed up with him since she is in the hospital. She complained of the swelling in her legs for 2 weeks, Dr. Silvestre tried to manage her symptom with p.o. Lasix, which did not work well at this time. Due to that reason, the patient presented to the Emergency Department for further evaluation and treatment. PAST MEDICAL HISTORY: 1. Congestive heart failure. 2. Permanent atrial fibrillation for 3 years with status post cardioversion by Dr Preston in 03/2019, plan to have possible ablation by Dr Syed in the near future. 3. COPD/asthma. 4. Ex-smoker, quit in 2018. 5. Chronic kidney disease, which is managed by Dr. Meng. 6. Hypertension. 7. Hyperlipidemia. 8. Anxiety and depression. 9. Renal cancer. 10. Hodgkin disease and lymphoma. 11. Staph infection in 2018. 12. Coronary artery disease with stent placement total of 5, last procedure was [address] Pham 13. Mitral valve regurgitation with hx of MVR. PAST SURGICAL HISTORY: 1. Mitral valve replacement in 2009. 2. Total of five stents placement, last procedure in 2017. 3. Total hysterectomy. 4. Appendectomy. 5. Tonsillectomy. 6. Right knee surgery. 7. Right wrist fracture repair. 8. Left arm fracture repair. 9. Spinal cord surgery. 10. Right kidney removed. 11. Bilateral partial lumpectomy in 2018. Since then, she has chronic shortness of breath. FAMILY HISTORY: The patient's son has a history of CVA and congestive heart failure. SOCIAL HISTORY: She is living in [place] in an independent living. She cook herself, but she cannot walk more than 1 block. She is an ex-smoker. She used to smoke 1 pack a day, quit in 2018. She drinks 1 glass of wine once a year. She denied illicit drug use. She does not exercise. She watch her water intake. She was told she can have a 2000 mL/day and she also watch her salt. ALLERGIES: SHE IS ALLERGIC TO CODEINE; HOWEVER, SHE CAN TAKE ONE CODEINE AND ALSO I THINK THE PATIENT IS ALLERGIC TO SULFA HERE, BUT SHE DID NOT MENTION DURING THE INTERVIEW. MEDICATIONS: The patient's home medications; 1. Coumadin 5 mg once a day. 2. Seroquel 300 mg at night. 3. Pramipexole 0.5 mg at night. 4. Protonix 40 mg once a day. 5. Atorvastatin 40 mg once a day. 6. Minipress 1 mg once a day. 7. Multivitamin once a day. 8. [place]-3 once a day. 9. Calcium carbonate with vitamin D3 one tablet once a day. 10. Vitamin C 500 mg once a day. 11. Iron supplement 325 mg twice a day. 12. Zoloft 100 mg once a day. 13. Albuterol 2.5 every 6 hours. 14. Trazodone 50 mg at night. 15. Lasix 40 mg once a day. 16. Xanax 0.25 mg 4 times a day. 17. Levothyroxine 150 mcg/day. 18. Carvedilol 6.25 mg twice a day. 19. Budesonide/formoterol 10.2 g inhaler twice a day. 20. Colace 100 mg at night. REVIEW OF SYSTEMS: A 12-point review of systems are negative unless otherwise mentioned in HPI. The patient has reflex problem for last four days. The patient denied hematochezia or hematuria. The patient denied falling for last six months, but she use a walker. PHYSICAL EXAMINATION: VITAL SIGNS: Blood pressure 125/71, temperature 98.3, heart rate 80s to 90s with chronic atrial fibrillation, O2 saturation 93% with 4 L nasal cannula, and respiratory rate is 20 to 24. GENERAL: The patient is alert and oriented x4, not in acute distress. HEENT: Head, normocephalic and atraumatic. Eyes, extraocular muscle movement intact. ENT and mouth, oral and nasal mucosa moist without lesion. NECK: Supple. Normal range of motion. No JVD. No carotid bruit or thrill noted. CARDIOVASCULAR: Irregularly irregular. No S3 or S4. No significant murmur, hives, or thrill are noted. 2+ pulses in bilateral upper extremities and left lower extremity, but diminished on the right lower extremities. No edema in the lower extremities. ABDOMEN: Soft and nontender. No mass to palpitate. Bowel sounds are present. The patient denied any discomfort with palpation. SKIN: Warm and dry. No lesion, rash, or erythema noted. The patient had a bruise in the bilateral lower and upper extremities. The patient really has thin skin. MUSCULOSKELETAL: The patient is able to move all extremities. The patient denied claudication at the lower extremities. NEUROLOGIC: The patient is alert and oriented x4, nonfocal. PSYCHIATRIC: The patient's mood is appropriate. LABORATORY DATA: WBC 8.7, hemoglobin 8.4 and 9.3, hematocrit 29.6, and platelet 219. INR 2.1. Sodium 144, potassium 3.5, BUN 36, creatinine 1.58, AST 24, and ALT 25. BNP is 813. An echocardiogram was done on June 18, 2019 with EF of 35% to 40%, which her EF in [address] Nath's office was 40% to 45%, severely dilated left atrium, mechanical prosthetic valve is present, mild aortic valve regurgitation, mild tricuspid regurgitation, and [id number] pulmonary regurgitation. ASSESSMENT AND PLAN: 1. Acute on chronic systolic heart failure. The patient's condition is much better according to the patient after she was given Lasix 40 mg IV push twice a day. She does not have any edema in the lower extremities and she can almost lay on the supine position according to the patient. She is still on 4 L nasal cannula; however, that is since at her patient's baseline. She did not complain any shortness of breath during the interview. She is on the carvedilol 6.25 mg twice a day. She is not on angiotensin-converting enzyme inhibitor or angiotensin receptor blockers at this moment. Once the patient's vital signs stable, we would like to start those medication. However, we have to caution about the patient's kidney function. 2. Permanent atrial fibrillation. The patient's heart rate is stable at this moment with current medication. She is on Coumadin and also Lovenox at this moment because INR level should be more than 3.0 to 4.0 due to history of a mitral valve replacement. 3. Coronary artery disease with history of stent placement, last procedure in [address] Pham at the [facility]. She is asymptomatic at this moment. She had a stress test at the [facility] about three weeks ago. We would like to obtain those information from the facility. She is on the carvedilol and atorvastatin 40 mg once a day. She is not on aspirin at this moment because the patient is on the Coumadin. The patient's hemoglobin level is kind of low side. 4. Chronic kidney disease, which is stable for this patient. We would like to continue to monitor. 5. Possible bilateral pneumonia, which is managed by primary care doctor. 6. Hypertension. The patient's blood pressure is stable at this moment with current medication. 7. History of chronic obstructive pulmonary disease/asthma, which is managed by primary care doctor and possibly the patient needs Pulmonary consult if the patient's condition become worse. 8. History of mechanical mitral valve replacement in 2009. Echocardiogram was done, which seems to be normal function. She is on the Coumadin at this moment. 9. History of kidney cancer, lymphoma, and Hodgkin disease, which is managed by primary care doctor. We would like to defer to the primary care doctor. Thank you very much for Cardiology Service to participate in the care of this patient. We will follow along the patient's care team and make further recommendations as appropriate. Job ID: [id number] [email or web address]
[2019-06-19] MEDS: Warfarin Sodium 5 MG TAB PO SCH (17:20)
--- NOTE | 2019-06-19 20:33 | PDOC.HOSPP ---
- Subjective Encounter Date: 06/19/19 Encounter Time: 10:00 Subjective: no overnight events. this morning, feels well and has no complaints. - Objective Vital Signs & Weight: Vital Signs (12 hours) Temp Pulse Pulse Pulse Resp BP BP 06/19/19 19:30 97.4 F L 72 23 H 06/19/19 17:20 130/62 06/19/19 15:43 98.7 F 119 H 24 H 06/19/19 15:05 83 119 H 130/62 06/19/19 13:55 06/19/19 11:27 98.4 F 91 15 06/19/19 08:50 BP BP Pulse Ox Pulse Ox Pulse Ox 06/19/19 19:30 104/52 L 95 06/19/19 17:20 06/19/19 15:43 06/19/19 15:05 131/69 88 L 93 L 06/19/19 13:55 92 L 06/19/19 11:27 125/62 90 L 06/19/19 08:50 93 L Weight Admit Weight 240 lb Weight 236 lb 9.6 oz I&O: 06/18/19 06/19/19 06/20/19 06:59 06:59 06:59 Intake Total 1240 940 240 Output Total 2700 2250 1000 Balance -1460 -1310 -760 Result Diagrams: 06/19/19 04:30 06/19/19 04:30 Additional Labs: Accuchecks 06/19/19 06/18/19 05:52 20:58 POC Glucose 121 H 149 H Hospitalist ROS - Review of Systems Constitutional: denies: fever, chills, sweats, weakness, malaise, other Respiratory: denies: cough, dry, shortness of breath, hemoptysis, SOB with excertion, pleuritic pain, sputum, wheezing, other Cardiovascular: denies: chest pain, palpitations, orthopnea, paroxysmal noc. dyspnea, edema, light headedness, other Gastrointestinal: denies: nausea, vomiting, abdominal pain, diarrhea, constipation, melena, hematochezia, other - Medication Medications: Active Medications Generic Name Dose Route Start Last Admin Trade Name Freq PRN Reason Stop Dose Admin Albuterol Sulfate 4 puff 06/14/19 19:00 06/19/19 19:00 Proventil Hfa INH 4 puff [id number] LISA Administration Albuterol Sulfate 2 puff 06/14/19 16:51 06/16/19 20:46 Proventil Hfa INH 2 puff Q4H PRN Administration SOB &/or Wheezing Alprazolam 0.25 mg 06/14/19 21:00 06/19/19 17:16 Xanax PO 0.25 mg QID LISA Administration Ascorbic Acid 500 mg 06/15/19 09:00 06/19/19 09:50 Vitamin C PO 500 mg DAILY LISA Administration Atorvastatin Calcium 40 mg 06/14/19 21:00 06/18/19 22:25 Lipitor PO 40 mg HS LISA Administration Calcium/Vitamin D 1 tab 06/15/19 09:00 06/19/19 09:50 Caltrate 600 + Vit D PO 1 tab DAILY LISA Administration Carvedilol 6.25 mg 06/16/19 17:00 06/19/19 17:20 Coreg PO 6.25 mg BID-WM LISA Administration Docusate Sodium 100 mg 06/15/19 22:41 06/18/19 22:43 Colace PO 100 mg BIDPRN PRN Administration Constipation Doxycycline Hyclate 100 mg 06/16/19 21:00 06/19/19 09:51 Vibramycin PO 100 mg BID LISA Administration Enoxaparin Sodium 100 mg 06/15/19 21:00 06/19/19 09:55 Lovenox SC 100 mg 0900,2100 LISA Administration Ferrous Sulfate 325 mg 06/15/19 08:00 06/19/19 17:18 Feosol PO 325 mg BID-WM LISA Administration Furosemide 40 mg 06/17/19 06:00 06/19/19 13:56 Lasix SLOW IVP 40 mg 0600,1400 LISA Administration Guaifenesin 200 mg 06/16/19 21:17 06/16/19 22:26 Organ-I Nr PO 200 mg Q4H PRN Administration Congestion Ceftriaxone Sodium 1 gm/ 100 mls @ 200 mls/hr 06/15/19 14:00 06/19/19 13:59 Sodium Chloride IVPB 100 mls 1400 LISA Administration Levothyroxine Sodium 150 mcg 06/15/19 06:00 06/19/19 05:43 Synthroid PO 150 mcg 0600 LISA Administration Pantoprazole Sodium 40 mg 06/15/19 09:00 06/19/19 09:52 Protonix IVP 40 mg DAILY LISA Administration Pramipexole Dihydrochloride 0.5 mg 06/14/19 21:00 06/18/19 22:25 Mirapex PO 0.5 mg HS LISA Administration Prazosin HCl 1 mg 06/14/19 21:00 06/18/19 22:26 Minipress PO 1 mg HS LISA Administration Quetiapine Fumarate 300 mg 06/14/19 21:00 06/18/19 22:25 Seroquel PO 300 mg HS LISA Administration Sertraline HCl 100 mg 06/15/19 09:00 06/19/19 09:50 Zoloft PO 100 mg DAILY LISA Administration Sodium Chloride 10 ml 06/14/19 16:31 06/17/19 14:04 Flush - Normal Saline IVF 10 ml PRN PRN Administration Saline Flush Trazodone HCl 50 mg 06/14/19 21:00 06/18/19 22:24 Desyrel PO 50 mg HS LISA Administration Warfarin Sodium 5 mg 06/16/19 17:00 06/19/19 17:20 Coumadin PO 5 mg 1700 LISA Administration - Exam General Appearance: NAD, awake alert Neck: no JVD Heart: RRR, no murmur, no gallops, no rubs Respiratory: no rales, no ronchi, wheezes Extremities: 2+ LE edema Psychiatric: normal affect, normal behavior, A&O x 3 Hosp A/P - Plan CAP - improving; continue steroids and doxy (currently d4); HFrEF - EF 40%, i/o negative over past 24h; continue to diurese Chronic afib, mechanical mitral valve - on coumadin and lovenox as per cardiology CKD3 - stable; pending restart of ACEI per cardiology remaining management unchanged
[2019-06-19] MEDS: Pramipexole Di-HCl 0.25 MG TAB PO SCH (21:04)
[2019-06-19] MEDS: Docusate 100 MG CAP PO PRN (21:04)
[2019-06-19] MEDS: Atorvastatin Calcium 40 MG TAB PO SCH (21:04)
[2019-06-19] MEDS: Prazosin HCl 1 MG CAP PO SCH (21:05)
[2019-06-19] MEDS: traZODone HCl 50 MG TAB PO SCH (21:05)
[2019-06-20] MEDS: Albuterol 200 PUFF (6.7GM INHALER) INH SCH ×3 (01:10→13:51)
[2019-06-20 04:46] LABS: Hemoglobin 9.5 g/dL (12.0-16.0); INR-International Normal Ratio 2.6; Platelet Count 223 thou/uL (130-400); Prothrombin Time 27.7 SEC (12.0-14.7)
[2019-06-20 04:56] LABS: PTT 134.2 SEC (22.9-36.1)
[2019-06-20 05:10] LABS: Anion Gap 13 mmol/L (10-20); BUN (Urea Nitrogen) 35 mg/dL (9.8-20.1); Calc. Creatinine Clearance 47 mL/min (70-130); Calcium 9.1 mg/dL (7.8-10.44); Carbon Dioxide 37 mmol/L (23-31); Chloride 97 mmol/L (98-107); Estimated GFR-MDRD 30; Glucose 143 mg/dL (83-110); Magnesium 1.8 mg/dL (1.6-2.6); Potassium 3.1 mmol/L (3.5-5.1); Sodium 144 mmol/L (136-145)
[2019-06-20 05:59] LABS: INR-International Normal Ratio 2.7; Prothrombin Time 28.7 SEC (12.0-14.7)
[2019-06-20] MEDS: Furosemide 40 MG/4 ML VIAL SLOW IVP SCH ×2 (06:07→13:36)
[2019-06-20] MEDS: Levothyroxine 150 MCG TAB PO SCH (06:08)
[2019-06-20 06:11] LABS: PTT 127.2 SEC (22.9-36.1)
[2019-06-20] MEDS: Carvedilol 6.25 MG TAB PO SCH ×2 (08:06→16:17)
[2019-06-20] MEDS: Ascorbic Acid 500 mg Chewable Tablet PO SCH (08:06)
[2019-06-20] MEDS: Calcium Carbonate 600 MG + Vit D TAB PO SCH (08:07)
[2019-06-20] MEDS: ALPRAZolam 0.25 MG TAB PO SCH ×4 (08:07→21:00)
[2019-06-20] MEDS: Doxycycline 100 MG CAP PO SCH ×2 (08:07→21:01)
[2019-06-20] MEDS: Ferrous Sulfate 325 MG TAB PO SCH ×2 (08:07→16:17)
[2019-06-20] MEDS: Pantoprazole 40 MG VIAL IVP SCH (08:08)
[2019-06-20] MEDS ORDERED: Enoxaparin Sodium 120 MG/0.8 ML SYRINGE SC SCH ×2 (09:30→21:00)
[2019-06-20] MEDS: Potassium Chloride 20 MEQ TAB PO SCH ×2 (09:48→13:36)
--- NOTE | 2019-06-20 10:53 | CON ---
DATE OF CONSULTATION: 06/19/2019 ADDENDUM: Addendum to the cardiology note. INDICATION FOR CONSULTATION: This is an elderly female, who has had history of congestive heart failure. She has had chronic atrial fibrillation. She underwent cardioversion recently and was planning to have an ablation. However, she presented to the hospital having shortness of breath and was admitted for further evaluation. She has been on amiodarone and Multaq in the past and these medications apparently did not work. She had some lower extremity edema and increasing shortness of breath, which required her to present to the emergency room, and she was given IV Lasix, and this has improved some of her symptoms. We will continue to follow her very carefully, and we will control the heart rate as well as the congestive heart failure symptoms, and she also appears to have some COPD as a part of her shortness of breath exacerbation. For her past medical history, social history, review of systems, allergies, medications, physical examination, please refer to the notes dictated by nurse practitioner. I would agree with her assessment and plan. We have seen and discussed this patient together. IMPRESSION: 1. Acute on chronic systolic heart failure, exacerbated by atrial fibrillation with rapid ventricular response and volume overload. At this time, we will continue the IV diuretics, and hopefully when the heart rate is maintained, we will try to maintain the heart rate with good control, and will then consider further electrophysiological evaluations and possible ablation. She has been on oral anticoagulation and has also been started on Lovenox. We are trying to get the INR at least 3 to 4, as she does have a history of a mitral valve replacement also. 2. Chronic atrial fibrillation. She may be a candidate to undergo cardioversion or an ablation. 3. History of coronary artery disease. She had stent placements in the past by Dr. Antione Pham at [facility]. We will continue to monitor these. I do not believe she is having any issues from a coronary standpoint at this time. She has other medical problems, which will be outlined by the nurse practitioner, and I would agree with that assessment and plan. We will continue to monitor the patient very carefully. Thank you. Job ID: [id number]
[2019-06-20] MEDS ORDERED: Albuterol Sulfate 2.5 mg/3 ml Neb NEB PRN (13:20)
--- NOTE | 2019-06-20 13:23 | PDOC.CPN ---
- Subjective Date: 06/20/19 Time: 13:37 Interval history: The pt seen and examined. No overnight events. She complains of severe cough - Objective Allergies/Adverse Reactions: Allergies Allergy/AdvReac Type Severity Reaction Status Date / Time codeine Allergy Verified 05/16/19 05:00 Sulfa (Sulfonamide Allergy Verified 06/14/19 18:58 Antibiotics) Visit Medications: Current Medications Acetaminophen (Tylenol) 650 mg PO Q4H PRN PRN Reason: Headache/Fever/Mild Pain (1-3) Albuterol Sulfate (Proventil Hfa) 4 puff INH [id number] [facility] Last Admin: 06/20/19 06:37 Dose: Not Given Albuterol Sulfate (Proventil Hfa) 2 puff INH Q4H PRN PRN Reason: SOB &/or Wheezing Last Admin: 06/16/19 20:46 Dose: 2 puff Albuterol Sulfate (Ventolin) 2.5 mg NEB [id number] PRN PRN Reason: Wheezing Albuterol Sulfate (Ventolin) 2.5 mg NEB ONE [facility] Alprazolam (Xanax) 0.25 mg PO QID [facility] Last Admin: 06/20/19 08:07 Dose: 0.25 mg Ascorbic Acid (Vitamin C) 500 mg PO DAILY [facility] Last Admin: 06/20/19 08:06 Dose: 500 mg Atorvastatin Calcium (Lipitor) 40 mg PO [facility] Last Admin: 06/19/19 21:04 Dose: 40 mg Calcium/Vitamin D (Caltrate 600 + Vit D) 1 tab PO DAILY [facility] Last Admin: 06/20/19 08:07 Dose: 1 tab Carvedilol (Coreg) 6.25 mg PO BID-[facility] Last Admin: 06/20/19 08:06 Dose: 6.25 mg Dextrose/Water (Dextrose 50%) 25 gm SLOW IVP PRN PRN PRN Reason: Hypoglycemia Docusate Sodium (Colace) 100 mg PO BIDPRN PRN PRN Reason: Constipation Last Admin: 06/19/19 21:04 Dose: 100 mg Doxycycline Hyclate (Vibramycin) 100 mg PO BID [facility] Last Admin: 06/20/19 08:07 Dose: 100 mg Enoxaparin Sodium (Lovenox) 110 mg SC BID [facility] Ferrous Sulfate (Feosol) 325 mg PO BID-[facility] Last Admin: 06/20/19 08:07 Dose: 325 mg Furosemide (Lasix) 40 mg SLOW IVP 0600,1400 [facility] Last Admin: 06/20/19 06:07 Dose: 40 mg Glucagon (Glucagon) 1 mg IM PRN PRN PRN Reason: Hypoglycemia Guaifenesin (Organ-I Nr) 200 mg PO Q4H PRN PRN Reason: Congestion Last Admin: 06/16/19 22:26 Dose: 200 mg Ceftriaxone Sodium 1 gm/ (Sodium Chloride) 100 mls @ 200 mls/hr IVPB 1400 [facility] Last Admin: 06/19/19 13:59 Dose: 100 mls Dextrose/Water (D5w) 1,000 mls @ 0 mls/hr IV .Q0M PRN PRN Reason: Hypoglycemia Insulin Human Lispro (Humalog) 0 units SC .MILD SLIDING SCALE PRN PRN Reason: Mild Correctional Scale Insulin Human Lispro (Humalog) 0 units SC .BEDTIME SLIDING SC PRN PRN Reason: Bedtime Correctional Scale Levothyroxine Sodium (Synthroid) 150 mcg PO 0600 [facility] Last Admin: 06/20/19 06:08 Dose: 150 mcg Mometasone Furoate/Formoterol Fumar (Dulera 200 Mcg/5 Mcg Inhaler) 2 puff INH NOW LISA Mometasone Furoate/Formoterol Fumar (Dulera 200 Mcg/5 Mcg Inhaler) 2 puff INH BID-RT LISA Pantoprazole Sodium (Protonix) 40 mg IVP DAILY [facility] Last Admin: 06/20/19 08:08 Dose: 40 mg Potassium Chloride (K-Dur) 40 meq PO Q4H [facility] Stop: 06/20/19 13:31 Last Admin: 06/20/19 09:48 Dose: 40 meq Pramipexole Dihydrochloride (Mirapex) 0.5 mg PO HS [facility] Last Admin: 06/19/19 21:04 Dose: 0.5 mg Prazosin HCl (Minipress) 1 mg PO HS [facility] Last Admin: 06/19/19 21:05 Dose: 1 mg Quetiapine Fumarate (Seroquel) 300 mg PO HS [facility] Last Admin: 06/19/19 21:05 Dose: 300 mg Sertraline HCl (Zoloft) 100 mg PO DAILY [facility] Last Admin: 06/20/19 08:07 Dose: 100 mg Sodium Chloride (Flush - Normal Saline) 10 ml IVF PRN PRN PRN Reason: Saline Flush Last Admin: 06/17/19 14:04 Dose: 10 ml Trazodone HCl (Desyrel) 50 mg PO HS LISA Last Admin: 06/19/19 21:05 Dose: 50 mg Warfarin Sodium (Coumadin) 5 mg PO 1700 LISA Last Admin: 06/19/19 17:20 Dose: 5 mg Vital Signs & Weight: Vital Signs Temp Pulse Resp BP BP BP Pulse Ox 06/20/19 11:05 98 F 89 20 121/66 94 L 06/20/19 08:06 130/62 06/20/19 08:00 95 06/20/19 07:10 97.8 F 77 20 122/57 L 93 L 06/20/19 04:15 98.6 F 91 23 H 119/59 L 93 L Admit Weight 240 lb Weight 236 lb 9.6 oz - Physical Exam General: alert & oriented x3 HEENT: mucus membranes moist Neck: supple neck Cardiac: irregularly regular Lungs: decreased breath sounds, wheezes Neuro: cranial nerve 2-12 intact - Labs Result Diagrams: 06/20/19 04:32 06/20/19 04:32 Troponin/CKMB CK-MB (CK-2) 1.4 ng/mL (0-6.6) 06/14/19 11:29 Troponin I 0.066 ng/mL (< 0.028) H 06/14/19 18:26 - Telemetry Supraventricular conduction: atrial fibrillation - Assessment/Plan Assessment/Plan: 1. Acute on Chronic Systolic HF with EF 35-40% - stable with Lasix 40mg BID, coreg; not on SURYA/ARB due to hx of CKD 2. CAP - managed by PCP 3. Permanent Afib with RVR - s/p DCCV for Afib in 03/[address] Silvestre. The pt is plan to f/u with Dr Bateman for possible RFA; well controlled HR with Coreg; On Coumadin 4. CAD with hx of stent placement x5 (last stent placement was in [address] Pham ) - stable; on Coreg and Statin; not on ASA since the pt is on Coumadin 5. CKD - unchanged 6. COPD/Asthma/Chronic SOB 2/2 hx of bilat partial lobectomy - On breathing tx 7. HTN - stable 8. HLD 9. Renal cancer 10. s/p Mechanical Mitral valve replacement in 2009 - On Coumadin and Lovenox; INR today was 2.7 (normal 3-4) 11. Ex-smoker quit in 2017 - APR reviewed * Echo on 06/19/2019 with EF 35-40%, severe LAE, mild AR and TR, and mild-mod NH * Dr Pearson's pt
[2019-06-20] MEDS ORDERED: Mometasone 200 MCG/Formoterol 5 MCG 120 PUFF INHALER INH SCH (13:30)
[2019-06-20] MEDS ORDERED: Albuterol Sulfate 2.5 mg/3 ml Neb NEB SCH (13:30)
[2019-06-20] MEDS: cefTRIAXone\\ROCEPHIN 1 GM in Sodium Chloride 0.9% 100 ML IVPB SCH (13:34)
[2019-06-20] MEDS ORDERED: Albuterol 200 PUFF (6.7GM INHALER) INH SCH ×2 (14:15→19:00)
[2019-06-20] MEDS: Mometasone 200 MCG/Formoterol 5 MCG 120 PUFF INHALER INH SCH (15:08)
[2019-06-20] MEDS: Warfarin Sodium 5 MG TAB PO SCH (16:18)
[2019-06-20] MEDS ORDERED: Benzonatate 100 MG CAP PO PRN (17:39)
[2019-06-20] MEDS: Pramipexole Di-HCl 0.25 MG TAB PO SCH (21:00)
[2019-06-20] MEDS: Prazosin HCl 1 MG CAP PO SCH (21:00)
[2019-06-20] MEDS ORDERED: Enoxaparin Sodium 100 MG/ML SYRINGE SC SCH (21:00)
[2019-06-20] MEDS: traZODone HCl 50 MG TAB PO SCH (21:00)
[2019-06-20] MEDS: Atorvastatin Calcium 40 MG TAB PO SCH (21:00)
[2019-06-20] MEDS: Enoxaparin Sodium 120 MG/0.8 ML SYRINGE SC SCH (21:01)
--- NOTE | 2019-06-20 22:10 | PDOC.HOSPP ---
- Subjective Encounter Date: 06/20/19 Encounter Time: 09:00 Subjective: no overnight events. THis morning, complains of improving hemoptysis but persistent cough that keeps her up at night. Also complains of malaise. - Objective Vital Signs & Weight: Vital Signs (12 hours) Temp Pulse Resp BP BP BP Pulse Ox 06/20/19 19:06 98.0 F 92 18 119/74 95 06/20/19 16:17 130/62 06/20/19 15:12 97.7 F 95 20 148/64 H 95 06/20/19 11:05 98 F 89 20 121/66 94 L Weight Admit Weight 240 lb Weight 236 lb 9.6 oz I&O: 06/19/19 06/20/19 06/21/19 06:59 06:59 06:59 Intake Total 940 240 480 Output Total 2250 1000 500 Balance -1310 -760 -20 Result Diagrams: 06/20/19 04:32 06/20/19 04:32 Hospitalist ROS - Review of Systems Constitutional: reports: malaise Respiratory: reports: cough, dry, shortness of breath, hemoptysis, SOB with excertion, wheezing. denies: pleuritic pain, sputum Cardiovascular: reports: edema. denies: chest pain, palpitations, orthopnea, paroxysmal noc. dyspnea Gastrointestinal: denies: nausea, vomiting, abdominal pain, diarrhea, constipation, melena, hematochezia, other Genitourinary: denies: dysuria, frequency, incontinence, hematuria, retention, other - Medication Medications: Active Medications Generic Name Dose Route Start Last Admin Trade Name Freq PRN Reason Stop Dose Admin Albuterol Sulfate 2 puff 06/14/19 16:51 06/16/19 20:46 Proventil Hfa INH 2 puff Q4H PRN Administration SOB &/or Wheezing Albuterol Sulfate 2 puff 06/20/19 19:00 06/20/19 22:08 Proventil Hfa INH Not Given [id number] LISA Alprazolam 0.25 mg 06/14/19 21:00 06/20/19 21:00 Xanax PO 0.25 mg QID LISA Administration Ascorbic Acid 500 mg 06/15/19 09:00 06/20/19 08:06 Vitamin C PO 500 mg DAILY LISA Administration Atorvastatin Calcium 40 mg 06/14/19 21:00 06/20/19 21:00 Lipitor PO 40 mg HS LISA Administration Calcium/Vitamin D 1 tab 06/15/19 09:00 06/20/19 08:07 Caltrate 600 + Vit D PO 1 tab DAILY LISA Administration Carvedilol 6.25 mg 06/16/19 17:00 06/20/19 16:17 Coreg PO 6.25 mg BID-WM LISA Administration Docusate Sodium 100 mg 06/15/19 22:41 06/19/19 21:04 Colace PO 100 mg BIDPRN PRN Administration Constipation Doxycycline Hyclate 100 mg 06/16/19 21:00 06/20/19 21:01 Vibramycin PO 100 mg BID LISA Administration Enoxaparin Sodium 110 mg 06/20/19 21:00 06/20/19 21:01 Lovenox SC 110 mg BID LISA Administration Ferrous Sulfate 325 mg 06/15/19 08:00 06/20/19 16:17 Feosol PO 325 mg BID-WM LISA Administration Furosemide 40 mg 06/17/19 06:00 06/20/19 13:36 Lasix SLOW IVP 40 mg 0600,1400 LISA Administration Ceftriaxone Sodium 1 gm/ 100 mls @ 200 mls/hr 06/15/19 14:00 06/20/19 13:34 Sodium Chloride IVPB 100 mls 1400 LISA Administration Levothyroxine Sodium 150 mcg 06/15/19 06:00 06/20/19 06:08 Synthroid PO 150 mcg 0600 LISA Administration Mometasone Furoate/Formoterol Fumar 2 puff 06/20/19 18:30 06/20/19 15:08 Dulera 200 Mcg/5 Mcg Inhaler INH Not Given BID-RT LISA Pantoprazole Sodium 40 mg 06/15/19 09:00 06/20/19 08:08 Protonix IVP 40 mg DAILY LISA Administration Pramipexole Dihydrochloride 0.5 mg 06/14/19 21:00 06/20/19 21:00 Mirapex PO 0.5 mg HS LISA Administration Prazosin HCl 1 mg 06/14/19 21:00 06/20/19 21:00 Minipress PO 1 mg HS LISA Administration Quetiapine Fumarate 300 mg 06/14/19 21:00 06/20/19 21:01 Seroquel PO 300 mg HS LISA Administration Sertraline HCl 100 mg 06/15/19 09:00 06/20/19 08:07 Zoloft PO 100 mg DAILY LISA Administration Sodium Chloride 10 ml 06/14/19 16:31 06/20/19 21:02 Flush - Normal Saline IVF 10 ml PRN PRN Administration Saline Flush Trazodone HCl 50 mg 06/14/19 21:00 06/20/19 21:00 Desyrel PO 50 mg HS LISA Administration Warfarin Sodium 5 mg 06/16/19 17:00 06/20/19 16:18 Coumadin PO 5 mg 1700 LISA Administration - Exam General Appearance: NAD, awake alert Heart: irregular Respiratory: no wheezes, no ronchi, rales, tachypneic (especially when conversing, can't finish full sentences after conversing for about a minute) Gastrointestinal: soft, non-tender, non-distended, normal bowel sounds, no palpable masses, no hepatomegaly, no splenomegaly, no bruit Extremities: 2+ LE edema Psychiatric: normal affect, normal behavior, A&O x 3 Hosp A/P - Plan CAP - completed ABx treatment (currently d5); HFrEF - EF 40%, remains hypervolemic; continue to diurese Chronic afib, mechanical mitral valve - on coumadin and lovenox as per cardiology; can stop lovenox 4.27 (24h after reaching goal 2.5-3.5) CKD3 - stable; per cardiology, continue to hold ACEI remaining management unchanged
[2019-06-21 05:16] LABS: Potassium 3.8 mmol/L (3.5-5.1)
[2019-06-21 05:59] LABS: INR-International Normal Ratio 3.5; Prothrombin Time 34.7 SEC (12.0-14.7)
[2019-06-21] MEDS: Furosemide 40 MG/4 ML VIAL SLOW IVP SCH (06:08)
[2019-06-21] MEDS: Levothyroxine 150 MCG TAB PO SCH (06:08)
[2019-06-21] MEDS: Mometasone 200 MCG/Formoterol 5 MCG 120 PUFF INHALER INH SCH ×2 (07:18→19:29)
[2019-06-21] MEDS: ALPRAZolam 0.25 MG TAB PO SCH ×4 (09:19→20:03)
[2019-06-21] MEDS: Ferrous Sulfate 325 MG TAB PO SCH ×2 (09:19→16:26)
[2019-06-21] MEDS: Carvedilol 6.25 MG TAB PO SCH ×2 (09:19→16:26)
[2019-06-21] MEDS: Ascorbic Acid 500 mg Chewable Tablet PO SCH (09:19)
[2019-06-21] MEDS: Enoxaparin Sodium 120 MG/0.8 ML SYRINGE SC SCH (09:20)
[2019-06-21] MEDS: Calcium Carbonate 600 MG + Vit D TAB PO SCH (09:21)
[2019-06-21] MEDS: Pantoprazole 40 MG VIAL IVP SCH (09:21)
--- NOTE | 2019-06-21 11:40 | PDOC.CPN ---
- Subjective Date: 06/21/19 Time: 11:38 Interval history: No new issues. No chest pain. - Review of Systems General: denies: fever/chills, weight/appetite/sleep changes, night sweats, fatigue Respiratory: denies: cough, congestion, shortness of breath, exercise intolerance Cardiovascular: denies: chest pain, palpitation, edema, paroxysmal nocturnal dyspnea, orthopnea Gastrointestinal: denies: nausea, vomiting, diarrhea, constipation, abd pain, GI bleeding Musculoskeletal: denies: pain, tenderness, stiffness, swelling, arthritis/ arthralgias Neurological: denies: numbness, syncope, seizure, weakness - Objective Allergies/Adverse Reactions: Allergies Allergy/AdvReac Type Severity Reaction Status Date / Time codeine Allergy Verified 05/16/19 05:00 Sulfa (Sulfonamide Allergy Verified 06/14/19 18:58 Antibiotics) Visit Medications: Current Medications Acetaminophen (Tylenol) 650 mg PO Q4H PRN PRN Reason: Headache/Fever/Mild Pain (1-3) Albuterol Sulfate (Proventil Hfa) 2 puff INH Q4H PRN PRN Reason: SOB &/or Wheezing Last Admin: 06/16/19 20:46 Dose: 2 puff Albuterol/Ipratropium (Duoneb) 3 ml NEB Q6H PRN PRN Reason: SOB &/or Wheezing Alprazolam (Xanax) 0.25 mg PO QID [facility] Last Admin: 06/21/19 09:19 Dose: 0.25 mg Ascorbic Acid (Vitamin C) 500 mg PO DAILY [facility] Last Admin: 06/21/19 09:19 Dose: Not Given Atorvastatin Calcium (Lipitor) 40 mg PO HS [facility] Last Admin: 06/20/19 21:00 Dose: 40 mg Benzonatate (Tessalon) 100 mg PO TIDPRN PRN PRN Reason: Cough Calcium/Vitamin D (Caltrate 600 + Vit D) 1 tab PO DAILY [facility] Last Admin: 06/21/19 09:21 Dose: 1 tab Carvedilol (Coreg) 6.25 mg PO BID-[facility] Last Admin: 06/21/19 09:19 Dose: 6.25 mg Dextrose/Water (Dextrose 50%) 25 gm SLOW IVP PRN PRN PRN Reason: Hypoglycemia Docusate Sodium (Colace) 100 mg PO BIDPRN PRN PRN Reason: Constipation Last Admin: 06/19/19 21:04 Dose: 100 mg Ferrous Sulfate (Feosol) 325 mg PO BID-WM [facility] Last Admin: 06/21/19 09:19 Dose: 325 mg Furosemide (Lasix) 40 mg SLOW IVP 0600,1400 [facility] Last Admin: 06/21/19 06:08 Dose: 40 mg Glucagon (Glucagon) 1 mg IM PRN PRN PRN Reason: Hypoglycemia Dextrose/Water (D5w) 1,000 mls @ 0 mls/hr IV .Q0M PRN PRN Reason: Hypoglycemia Insulin Human Lispro (Humalog) 0 units SC .MILD SLIDING SCALE PRN PRN Reason: Mild Correctional Scale Insulin Human Lispro (Humalog) 0 units SC .BEDTIME SLIDING SC PRN PRN Reason: Bedtime Correctional Scale Levothyroxine Sodium (Synthroid) 150 mcg PO 0600 [facility] Last Admin: 06/21/19 06:08 Dose: 150 mcg Mometasone Furoate/Formoterol Fumar (Dulera 200 Mcg/5 Mcg Inhaler) 2 puff INH BID-RT [facility] Last Admin: 06/21/19 07:18 Dose: 2 puff Pantoprazole Sodium (Protonix) 40 mg IVP DAILY [facility] Last Admin: 06/21/19 09:21 Dose: 40 mg Pramipexole Dihydrochloride (Mirapex) 0.5 mg PO HS [facility] Last Admin: 06/20/19 21:00 Dose: 0.5 mg Prazosin HCl (Minipress) 1 mg PO HS [facility] Last Admin: 06/20/19 21:00 Dose: 1 mg Quetiapine Fumarate (Seroquel) 300 mg PO HS [facility] Last Admin: 06/20/19 21:01 Dose: 300 mg Sertraline HCl (Zoloft) 100 mg PO DAILY [facility] Last Admin: 06/21/19 09:19 Dose: 100 mg Sodium Chloride (Flush - Normal Saline) 10 ml IVF PRN PRN PRN Reason: Saline Flush Last Admin: 06/20/19 21:02 Dose: 10 ml Trazodone HCl (Desyrel) 50 mg PO HS [facility] Last Admin: 06/20/19 21:00 Dose: 50 mg Warfarin Sodium (Coumadin) 5 mg PO 1700 [facility] Last Admin: 06/20/19 16:18 Dose: 5 mg Vital Signs & Weight: Vital Signs Temp Pulse Resp BP BP Pulse Ox 06/21/19 07:34 98.5 F 106 H 18 121/60 93 L 06/21/19 04:49 91 L 06/21/19 04:38 98.2 F 96 20 122/59 L 92 L Admit Weight 240 lb Weight 234 lb 3.2 oz - Physical Exam General: alert & oriented x3 HEENT: mucus membranes moist Neck: supple neck Cardiac: irregularly regular Lungs: clear to auscultation Neuro: grossly intact Abdomen: active bowel sounds Extremities: no edema Skin: clear Musculoskeletal: no pain - Labs Result Diagrams: 06/20/19 04:32 06/21/19 04:40 Troponin/CKMB CK-MB (CK-2) 1.4 ng/mL (0-6.6) 06/14/19 11:29 Troponin I 0.066 ng/mL (< 0.028) H 06/14/19 18:26 - Telemetry Supraventricular conduction: atrial fibrillation - Assessment/Plan Assessment/Plan: 1. Acute on Chronic Systolic HF with EF 35-40% 2. CAP 3. Permanent Afib with RVR - s/p DCCV for Afib in 03/[address] Silvestre. The pt is plan to 4. CAD with hx of stent placement x5 (last stent placement was in [address] Pham) 5. CKD 6. COPD 7. HTN 8. HLD 9. Renal cell carcinoma 10. s/p Mechanical Mitral valve replacement in 2009 - On Coumadin, INR at 3.5 today. 11. Ex-smoker quit in 2018. PLAN: - Continue current regimen, - More euvolemic. - INR therapeutic (goal 2.5-3.5) -Abx per primary team. - Plan to f/u with Dr Gross for possible afib ablation. - Patient of Dr. Preston.
[2019-06-21] MEDS: Furosemide 40 MG TAB PO SCH (13:37)
[2019-06-21] MEDS: Warfarin Sodium 5 MG TAB PO SCH (16:26)
[2019-06-21] MEDS: Prazosin HCl 1 MG CAP PO SCH (20:04)
[2019-06-21] MEDS: Atorvastatin Calcium 40 MG TAB PO SCH (20:04)
[2019-06-21] MEDS: traZODone HCl 50 MG TAB PO SCH (20:04)
[2019-06-21] MEDS: Pramipexole Di-HCl 0.25 MG TAB PO SCH (20:04)
--- NOTE | 2019-06-21 21:03 | PDOC.HOSPP ---
- Subjective Encounter Date: 06/21/19 Encounter Time: 08:00 Subjective: no overnight events. This morning, feeling much better and has no complaints. - Objective Vital Signs & Weight: Vital Signs (12 hours) Temp Pulse Pulse Resp BP BP BP 06/21/19 19:45 98.5 F 76 24 H 120/60 06/21/19 19:29 86 14 06/21/19 15:48 98.1 F 97 20 120/67 06/21/19 14:32 79 121/57 L 06/21/19 11:30 98.2 F 90 18 101/55 L Pulse Ox 06/21/19 19:45 92 L 06/21/19 19:29 94 L 06/21/19 15:48 95 06/21/19 14:32 06/21/19 11:30 92 L Weight Admit Weight 240 lb Weight 234 lb 3.2 oz I&O: 06/20/19 06/21/19 06/22/19 06:59 06:59 06:59 Intake Total 036 184 4189 Output Total 1000 1700 950 Balance -760 -860 290 Result Diagrams: 06/20/19 04:32 06/21/19 04:40 Hospitalist ROS - Review of Systems Constitutional: denies: fever, chills, sweats, weakness, malaise, other Respiratory: reports: cough, dry, SOB with excertion. denies: shortness of breath, hemoptysis, pleuritic pain, sputum, wheezing, other Cardiovascular: denies: chest pain, palpitations, orthopnea, paroxysmal noc. dyspnea, edema, light headedness, other Gastrointestinal: denies: nausea, vomiting, abdominal pain, diarrhea, constipation, melena, hematochezia, other - Medication Medications: Active Medications Generic Name Dose Route Start Last Admin Trade Name Freq PRN Reason Stop Dose Admin Albuterol Sulfate 2 puff 06/14/19 16:51 06/16/19 20:46 Proventil Hfa INH 2 puff Q4H PRN Administration SOB &/or Wheezing Alprazolam 0.25 mg 06/14/19 21:00 06/21/19 20:03 Xanax PO 0.25 mg QID LISA Administration Ascorbic Acid 500 mg 06/15/19 09:00 06/21/19 09:19 Vitamin C PO Not Given DAILY LISA Atorvastatin Calcium 40 mg 06/14/19 21:00 06/21/19 20:04 Lipitor PO 40 mg HS LISA Administration Calcium/Vitamin D 1 tab 06/15/19 09:00 06/21/19 09:21 Caltrate 600 + Vit D PO 1 tab DAILY LISA Administration Carvedilol 6.25 mg 06/16/19 17:00 06/21/19 16:26 Coreg PO 6.25 mg BID-WM LISA Administration Docusate Sodium 100 mg 06/15/19 22:41 06/19/19 21:04 Colace PO 100 mg BIDPRN PRN Administration Constipation Ferrous Sulfate 325 mg 06/15/19 08:00 06/21/19 16:26 Feosol PO 325 mg BID-WM LISA Administration Furosemide 40 mg 06/21/19 14:00 06/21/19 13:37 Lasix PO 40 mg 0900,1400 LISA Administration Levothyroxine Sodium 150 mcg 06/15/19 06:00 06/21/19 06:08 Synthroid PO 150 mcg 0600 LISA Administration Mometasone Furoate/Formoterol Fumar 2 puff 06/20/19 18:30 06/21/19 19:29 Dulera 200 Mcg/5 Mcg Inhaler INH 2 puff BID-RT LISA Administration Pantoprazole Sodium 40 mg 06/15/19 09:00 06/21/19 09:21 Protonix IVP 40 mg DAILY LISA Administration Pramipexole Dihydrochloride 0.5 mg 06/14/19 21:00 06/21/19 20:04 Mirapex PO 0.5 mg HS LISA Administration Prazosin HCl 1 mg 06/14/19 21:00 06/21/19 20:04 Minipress PO 1 mg HS LISA Administration Quetiapine Fumarate 300 mg 06/14/19 21:00 06/21/19 20:04 Seroquel PO 300 mg HS LISA Administration Sertraline HCl 100 mg 06/15/19 09:00 06/21/19 09:19 Zoloft PO 100 mg DAILY LISA Administration Sodium Chloride 10 ml 06/14/19 16:31 06/20/19 21:02 Flush - Normal Saline IVF 10 ml PRN PRN Administration Saline Flush Trazodone HCl 50 mg 06/14/19 21:00 06/21/19 20:04 Desyrel PO 50 mg HS LISA Administration Warfarin Sodium 5 mg 06/16/19 17:00 06/21/19 16:26 Coumadin PO 5 mg 1700 LISA Administration - Exam General Appearance: NAD, awake alert Heart: irregular Respiratory: CTAB, no wheezes, no rales, no ronchi Gastrointestinal: soft, non-tender, non-distended, normal bowel sounds Extremities: 1+ LE edema Psychiatric: normal affect, normal behavior, A&O x 3 Hosp A/P - Plan CAP - completed ABx treatment (currently d5); Currently close to baseline (4L, uses 3L O2 at home) HFrEF - EF 40%, remains hypervolemic; continue to diurese Chronic afib, mechanical mitral valve - on coumadin at goal INR; stopped lovenox 4.27 (24h after reaching goal 2.5-3.5) CKD3 - stable; per cardiology, continue to hold ACEI Discharge pending arrangement of aid on weekends, likely 06/21
[2019-06-22 04:48] LABS: Prothrombin Time 31.1 SEC (12.0-14.7)
[2019-06-22] MEDS: Levothyroxine 150 MCG TAB PO SCH (05:10)
[2019-06-22 08:01] VITALS: BP 115/58; TEMP 98.4
[2019-06-22] MEDS: Mometasone 200 MCG/Formoterol 5 MCG 120 PUFF INHALER INH SCH (08:04)
[2019-06-22] MEDS: Ferrous Sulfate 325 MG TAB PO SCH (08:19)
[2019-06-22] MEDS: Calcium Carbonate 600 MG + Vit D TAB PO SCH (08:19)
[2019-06-22] MEDS: Pantoprazole 40 MG VIAL IVP SCH (08:19)
[2019-06-22] MEDS: Ascorbic Acid 500 mg Chewable Tablet PO SCH (08:20)
[2019-06-22] MEDS: Carvedilol 6.25 MG TAB PO SCH (08:20)
[2019-06-22] MEDS: Furosemide 40 MG TAB PO SCH ×2 (08:20→13:16)
[2019-06-22] MEDS: ALPRAZolam 0.25 MG TAB PO SCH ×2 (08:20→12:16)
--- NOTE | 2019-06-23 08:53 | PQF ---
LEONORA,LINDA WAN, CAITLYN [id number] [facility] [id number] CLINICAL DOCUMENTATION CLARIFICATION FORM: POST DISCHARGE Addendum to original discharge summary date: ____ Late entry note date: __ DATE:06/23/2019 ATTN: Caitlyn Lopez Please exercise your independent, professional judgment in responding to the clarification form. Clinical indicators are provided on the bottom of this form for your review Please check appropriate box(es): [ ] Sepsis due to Pneumonia [ ] Severe sepsis with acute organ dysfunction of: (Examples: respiratory failure, encephalopathy, acute kidney failure, other) [ ] Septic Shock [ x ] Localized infection without sepsis [ ] Other diagnosis [ ] Unable to determine In addition, please specify: Present on Admission (POA): [ x ] Yes [ ] No [ ] Unable to determine For continuity of documentation, please document condition throughout progress notes and discharge summary. Thank You. CLINICAL INDICATORS - SIGNS / SYMPTOMS / LABS Laboratory 06/13 WBC 13.6, Plt count 227, Neutrophils 88.0 Vital sign 06/13 BP 104/60, Pulse 96, Resp 34, temp 98.3, O2 sat 92% Chest X-ray 06/13 Impression: Peripheral bilateral infiltrates ED notes p3 SIRS scoring: Yes, Pt meet criteria H&P p1 06/13 Dr Doherty Resport over the past 2 days, progressive shortness of breath H&P p1 06/13 Dr Doherty Reports chronic non productive cough, wheezing H&P p1 06/13 Dr Doherty Reports chronic orthopnea, sleeping upright in chair or bed H&P p1 06/13 Dr Doherty Bilateral Pneumonia Hospitalist PN p7 06/14 Acute hypoxic Resp failure Collected 06/13 Blood culture:No growth in 5 days RISK FACTORS H&P p1 06/13 78 year-old Female H&P p1 06/13 COPD on home O2 H&P p1 06/13 Asthma H&P p1 06/13 Afib H&P p1 06/13 HTN H&P 2 06/13 Former smoker H&P p6 06/13 CKD 3 Hospitalist PN p6 06/14 CHF Exacerbation H&P p1 06/13 -PNA TREATMENTS: APR 27 Proventil Hfa 4 puff APR 27 IV Rocephim 2gm APR 27 IV Doxycycline Hyclate 100 mg APR 27 Prednisone 20 mg oral APR 27 IVF NS 1L Respiratory panel 06/13 Oxygen 4L Chest Xray 06/13 Collected 06/13 Blood culture (This form is maintained as a part of the permanent medical record) 2014 [employer], [employer]. All Rights Reserved [email or web address]
--- NOTE | 2019-06-23 08:54 | PQF ---
LEONORA,LINDA WAN, CAITLYN [id number] [facility] [id number] CLINICAL DOCUMENTATION CLARIFICATION FORM: POST DISCHARGE Addendum to original discharge summary date: ____ Late entry note date: __ DATE:06/23/2019 ATTN: Caitlyn Lopez Please exercise your independent, professional judgment in responding to the clarification form. Clinical indicators are provided on the bottom of this form for your review Please check appropriate box(s) to clarify if the following diagnosis has been ruled in or ruled out: Acute Respiratory Failure [ x ] Ruled in diagnosis [ ] Continue to treat [ x ] Resolved [ ] Ruled out diagnosis [ ] Cannot rule out diagnosis [ ] Other diagnosis [ ] Unable to determine In addition, please specify: Present on Admission (POA): [ x ] Yes [ ] No [ ] Unable to determine For continuity of documentation, please document condition throughout progress notes and discharge summary. Thank You. CLINICAL INDICATORS - SIGNS / SYMPTOMS / LABS Vital sign 06/13 BP 104/60, Pulse 96, Resp 34, temp 98.3, O2 sat 92% Laboratory 06/13 BNP 813., Troponin 0.09 Chest X-ray 06/13 Impression: Peripheral bilateral infiltrates H&P p1 06/13 Dr Doherty Resport over the past 2 days, progressive shortness of breath H&P p1 06/13 Dr Doherty Reports chornic non productive cough, wheezing H&P p1 06/13 Dr Doherty Reports chronic orthopnea, sleeping upright in chair or bed H&P p1 06/13 Dr Doherty Bilateral Pneumonia Hospitalist PN p6 06/14 CHF-suspected her CXR findings are related to CHF Hospitalist PN p7 06/14 Acute hypoxic Resp failure RISK FACTORS H&P p1 06/13 78 year-old Female H&P p1 06/13 COPD on home O2 H&P p1 06/13 Asthma H&P p1 06/13 Afib H&P p1 06/13 HTN H&P 2 06/13 Former smoker H&P p6 06/13 CKD 3 Hospitalist PN p6 06/14 CHF Exacerbation H&P p1 06/13 -PNA TREATMENTS APR 27 Proventil Hfa 4 puff APR 27 IV Rocephim 2gm APR 27 IV Lasix 20 mg APR 27 Prednisone 20 mg oral APR 27 IVF NS 1L Respiratory panelo 06/13 Oxygen 4L Chest Xray 06/13 (This form is maintained as a part of the permanent medical record) 2014 [employer]. All Rights Reserved [email or web address]
--- NOTE | 2019-06-23 08:55 | PQF ---
LEONORA,LINDA Hines SAVAGE, CAITLYN [id number] [facility] [id number] CLINICAL DOCUMENTATION CLARIFICATION FORM: POST DISCHARGE Addendum to original discharge summary date: ____ Late entry note date: __ DATE:06/23/2019 ATTN: Caitlyn Lopez Please exercise your independent, professional judgment in responding to the clarification form. Clinical indicators are provided on the bottom of this form for your review Please check appropriate box(s): [ ] Aspiration Pneumonia [ ] Empirically treating Gram Negative Pneumonia [ ] Empirically treating Anaerobic Pneumonia [x ] Simple Pneumonia (community acquired - nosocomial) [ ] Pneumonia of unknown etiology [ ] Other diagnosis [ ] Unable to determine For continuity of documentation, please document condition throughout progress notes and discharge summary. Thank You. CLINICAL INDICATORS - SIGNS / SYMPTOMS / LABS Vital sign 06/13 BP 104/60, Pulse 96, Resp 34, temp 98.3, O2 sat 92% Chest X-ray 06/13 Impression: Peripheral bilateral infiltrates H&P p1 06/13 Dr Doherty Resport over the past 2 days, progressive shortness of breath H&P p1 06/13 Dr Doherty Reports chornic non productive cough, wheezing H&P p1 06/13 Dr Doherty Reports chronic orthopnea, sleeping upright in chair or bed H&P p1 06/13 Dr Doherty Bilateral Pneumonia Hospitalist PN p7 06/14 Acute hypoxic Resp failure RISK FACTORS H&P p1 06/13 78 year-old Female H&P p1 06/13 COPD on home O2 H&P p1 06/13 Asthma H&P p1 06/13 Afib H&P p1 06/13 HTN H&P 2 06/13 GERD H&P 2 06/13 Former smoker H&P p6 06/13 CKD 3 Hospitalist PN p6 06/14 CHF Exacerbation TREATMENTS: APR 27 Proventil Hfa 4 puff APR 27 IV Rocephim 2gm APR 27 IV Doxycycline Hyclate 100 mg APR 27 Prednisone 20 mg oral APR 27 IVF NS 1L Respiratory panel 06/13 Oxygen 4L Chest Xray 06/13 (This form is maintained as a part of the permanent medical record) 2014 [employer], [employer]. All Rights Reserved [email or web address]
--- NOTE | 2019-06-23 13:51 | DIS ---
DATE OF ADMISSION: 06/14/2019 DATE OF DISCHARGE: 06/22/2019 HOSPITAL COURSE: Ms. Clemens is a 78-year-old female with a medical history of COPD GOLD C, CHF with reduced ejection fraction, atrial fibrillation (warfarin), who presented with shortness of breath. She was diagnosed with community-acquired pneumonia, COPD exacerbation, and suboptimally managed CHF with reduced ejection fraction. The patient was treated with antibiotics as well as steroids and improved after several days. She completed 5 days of antibiotics, and on the day of discharge, her breathing was at baseline. She was saturating in the low 90s on 3 L nasal cannula and had limited exertion ability, which per the patient is a baseline. For the suboptimally managed heart failure with reduced ejection fraction, Cardiology was consulted and medications were adjusted. She was diuresed, which improved her lower extremity edema as well as breathing. For the chronic atrial fibrillation and mechanical mitral valve, Coumadin was bridged to goal levels of INR of 2.5 to 3.5, and the patient was educated regarding low vitamin K diet to avoid variations in the INR. On the day of discharge, the patient was feeling well and had no complaints with the exception of baseline limited exertion due to dyspnea. PHYSICAL EXAMINATION: VITAL SIGNS: Blood pressure 115/58, pulse 90, respiratory rate 18, saturating 95% on 4 L nasal cannula, temperature 98.4. GENERAL: No apparent distress. Awake and alert. HEART: Irregularly irregular rhythm. Rate is well controlled between 70s to 80s. No murmurs, gallops, or rubs. RESPIRATORY: Clear to auscultation bilaterally. No wheezes, rales, or rhonchi. GI: Soft, nontender, nondistended. Normal bowel sounds. EXTREMITIES: +1 lower extremity edema, pitting, equal, improved compared to the day of presentation. PSYCHIATRIC: Normal affect. Normal behavior. Alert and oriented x3. DISCHARGE MEDICATIONS: New medications: 1. Benzonatate 100 mg oral t.i.d. p.r.n. coughing. 2. Triamcinolone acetonide topical for stasis dermatitis, one application b.i.d. for 14 days. Continued medications: 1. Warfarin. 2. Quetiapine. 3. Pramipexole. 4. Pantoprazole. 5. Atorvastatin. 6. Prazosin. 7. Calcium carbonate with vitamin D3. 8. Ascorbic acid. 9. Ferrous sulfate. 10. Sertraline. 11. Albuterol sulfate. 12. Trazodone. 13. Alprazolam. 14. Levothyroxine. 15. Carvedilol. 16. Budesonide/formoterol. 17. Docusate. 18. Furosemide. Discontinued medications: None. Job ID: [id number]
--- NOTE | 2019-06-25 08:34 | PQF ---
LEONORA,LINDA Hines SAVAGE, CAITLYN [id number] [facility]-242 [id number] CLINICAL DOCUMENTATION CLARIFICATION FORM: POST DISCHARGE Addendum to original discharge summary date: ____ Late entry note date: __ DATE: 06/25/2019 ATTN: Caitlyn Lopez Please exercise your independent, professional judgment in responding to the clarification form. Clinical indicators are provided on the bottom of this form for your review Please check appropriate box(s): [ ] Acute Coronary Syndrome (ACS) without Acute ID meaning Unstable Angina [ ] NSTEMI (ID type I) [ ] NSTEMI due to Demand Ischemia (AMI Type II) [ ] Demand Ischemia without ID [ ] STEMI (please also specify site and arterysee below) If STEMI, SITE:[ ] Anterior [ ] Apical [ ] Lateral [ ] Inferior [ ] Posterior [ ] Q Wave [ ] Septal [ ] Unable to Determine [ x ] Other diagnosis _troponinemia [ ] Unable to determine In addition, please specify: Present on Admission (POA): [ ] Yes [ ] No [ ] Unable to determine CLINICAL INDICATORS - SIGNS / SYMPTOMS / LABS Vital signs 06/13 BP 137/64, Pulse 96, Resp 20 Laboratory 06/13 BNP 813.3, Troponin I 0.069; 0.075; 0.066, CK-MB 1.4 EKG 06/13 'Impression;Afib, rate controlled H&P p2 06/13 Report chest pain, orthopnea, edema H&P p6 06/13 Elevated troponin most likely demand ischemia EKG 06/13 ST segments normal, T waves normal RISK FACTORS H&P p1 06/13 78 year-old Female H&P p1 06/13 Afib H&P p1 06/13 HTN H&P 2 06/13 Former smoker H&P p6 06/13 CKD 3 Hospitalist PN p6 06/14 CHF Exacerbation ED Notes p1 06/13 High Cholesterol H&P p1 06/13 HLD PN p4 06/20 CAD with history of stent placement TREATMENTS: APR 27 IVF NS 1L APR 27 Coreg 6.25 mg oral APR 27 Coumadin 5mg oral EKG -06/13 Chest X-ray 06/13 CHANTELL 06/17 H&P p6 06/13 Trend troponin (This form is maintained as a part of the permanent medical record) 2014 [employer]. All Rights Reserved [email or web address]
== END 2019-06-22 13:53 | disposition home health service (06) | DRG 291 ==
LOC: ERS 11:00 → 2SW 15:33
PROVIDERS: ADMIT Internal Medicine; ATTEND Internal Medicine
PROC: 8E0ZXY6 Isolation (ICD-10-PCS; principal; 2019-06-14)
DX: I13.0 Hypertensive heart and chronic kidney disease with heart failure and stage 1 through stage 4 chronic kidney disease, or unspecified chronic kidney disease (principal); I50.23 Acute on chronic systolic (congestive) heart failure; J18.9 Pneumonia, unspecified organism; J96.01 Acute respiratory failure with hypoxia; J44.0 Chronic obstructive pulmonary disease with (acute) lower respiratory infection; I48.21 Permanent atrial fibrillation; Z68.41 Body mass index [BMI] 40.0-44.9, adult; Z20.828 Contact with and (suspected) exposure to other viral communicable diseases; E78.5 Hyperlipidemia, unspecified; K21.9 Gastro-esophageal reflux disease without esophagitis; F32.9 Major depressive disorder, single episode, unspecified; R79.1 Abnormal coagulation profile; R79.89 Other specified abnormal findings of blood chemistry; N18.3 Chronic kidney disease, stage 3 (moderate); I87.2 Venous insufficiency (chronic) (peripheral); R73.9 Hyperglycemia, unspecified; T38.0X5A Adverse effect of glucocorticoids and synthetic analogues, initial encounter; M19.90 Unspecified osteoarthritis, unspecified site; F41.9 Anxiety disorder, unspecified; E66.01 Morbid (severe) obesity due to excess calories; I25.10 Atherosclerotic heart disease of native coronary artery without angina pectoris; Z99.81 Dependence on supplemental oxygen; Z88.5 Allergy status to narcotic agent; Z79.899 Other long term (current) drug therapy; Z90.49 Acquired absence of other specified parts of digestive tract; Z90.710 Acquired absence of both cervix and uterus; Z90.5 Acquired absence of kidney; Z90.722 Acquired absence of ovaries, bilateral; Z85.72 Personal history of non-Hodgkin lymphomas; Z85.89 Personal history of malignant neoplasm of other organs and systems; Z87.891 Personal history of nicotine dependence; Z95.2 Presence of prosthetic heart valve; Z85.53 Personal history of malignant neoplasm of renal pelvis; Z95.5 Presence of coronary angioplasty implant and graft; Z88.2 Allergy status to sulfonamides
CPT/HCPCS: 36415; 36416; 71045; 80048; 80053; 82553; 83735; 83880; 84132; 84484; 85014; 85018; 85025; 85049; 85610; 85730; 86850; 86900; 86901; 87040; 87635; 93005; 93306; 96365; 96367; C9113; J0456; J0696; J1650; J1940; J3430; J3490; J7512; U0003

== ENCOUNTER 2019-10-12 21:05 | Inpatient (IN) | payer MEDICARE, OTHER ==
[2019-10-12] MEDS ORDERED: Morphine 4 MG/ML VIAL ONE ×2 (21:13→21:58)
[2019-10-12] MEDS ORDERED: Diltiazem 125 MG/25 ML ONE (21:23)
[2019-10-12 21:39] LABS: INR-International Normal Ratio 1.1; Prothrombin Time 14.1 sec (12.0-14.7)
--- NOTE | 2019-10-12 21:44 | RAD ---
Chest one view HISTORY: Palpitations. COMPARISON: 06/18/2019. FINDINGS: Cardiac silhouette is magnified and enlarged. Pulmonary vasculature is unremarkable. Mediastinum is midline with postoperative changes and aortic calcification. No lobar consolidation or evidence of pneumothorax. IMPRESSION : Cardiomegaly. No active cardiopulmonary abnormalities are otherwise demonstrated.
--- NOTE | 2019-10-12 21:45 | RAD ---
Left hip 2 views HISTORY: Fall. Pain. FINDINGS: Joint space narrowing, osteophytosis, and subchondral sclerosis. Detail limited due to over lying soft tissues. No displaced fractures evident. Femoral head cortex poorly defined. IMPRESSION : Osteoarthritic changes. No acute osseous abnormalities are demonstrated.
[2019-10-12 21:46] LABS: ALT (SGPT) 55 U/L (8-55); AST (SGOT) 43 U/L (5-34); Albumin 3.7 g/dL (3.4-4.8); Alkaline Phosphatase 97 U/L (40-110); Anion Gap 14 mmol/L (10-20); BUN (Urea Nitrogen) 38 mg/dL (9.8-20.1); Bilirubin, Total 0.6 mg/dL (0.2-1.2); Calc. Creatinine Clearance 0 mL/min (70-130); Calcium 8.9 mg/dL (7.8-10.44); Carbon Dioxide 32 mmol/L (23-31); Chloride 98 mmol/L (98-107); Estimated GFR-MDRD 32; Globulin 2.4 g/dL (2.4-3.5); Glucose 190 mg/dL (83-110); Potassium 4.5 mmol/L (3.5-5.1); Protein, Total 6.1 g/dL (6.0-8.3); Sodium 139 mmol/L (136-145)
--- NOTE | 2019-10-12 21:46 | RAD ---
AP pelvis one view HISTORY: Fall. Pain. FINDINGS: Right hip prosthesis in place. No abbey-hardware lucency evident. Distal portion of the femo ral stem not included. Osteoarthritic changes of the left hip and sacroiliac joints. No displaced fractures evident. Sacral alae partially obscured by overlying soft tissues, bowel content, arterial calcification, and osteopenia. Lower pelvic rings are intact. IMPRESSION : No acute osseous abnormalities are demonstrated.
[2019-10-12 22:04] LABS: Band 11 % (5-11); Hemoglobin 13.4 g/dL (12.0-16.0); Lymphocytes 5 % (21-51); MDiff Complete? YES; Mean Corpuscular HGB CONC 31.2 g/dL (32.0-36.0); Mean Corpuscular Hemoglobin 29.8 pg (27.0-31.0); Mean Corpuscular Volume 95.5 fL (78.0-98.0); Mean Platelet Volume 9.3 fL (7.4-10.4); Monocytes 7 % (0-10); Neutrophil 77 % (42-75); Platelet Count 199 thou/uL (130-400); RBC Distribution Width 18.3 % (11.5-14.5); White Blood Cell (WBC) Count 14.2 thou/uL (4.8-10.8)
--- NOTE | 2019-10-12 22:42 | RAD ---
Left knee 4 views HISTORY: Fall. Injury. FINDINGS: There is complete loss of joint space at the medial and lateral compartments. Mild lateral subluxation. Irregularity of the articular surfaces with maintenance of the cortex. No acute fracture, dislocation, or fluid distention of the suprapatellar bursa are apparent. Prominent calcifi cation of the arterial structures. IMPRESSION : Severe osteoarthritic changes left knee. No acute osseous abnormalities are demonstrated. Atherosclerosis.
--- NOTE | 2019-10-12 22:43 | RAD ---
Left femur 2 views HISTORY: Fall. Injury. FINDINGS: Femoral shaft is intact. Degenerative changes of the knee evident. No displaced fracture apparent. Femoral neck not well visualized due to overlying soft tissues. Prominent calcification throughout the arterial structures. IMPRESSION : No acute osseous abnormalities demonstrated. Hip not well visualized. Atherosclerosis.
--- NOTE | 2019-10-12 23:22 | CT ---
CT left hip noncontrast CT pelvis noncontrast HISTORY: Fall. Pain. FINDINGS: Prominent calcification within the arterial structures. Small amount of fat extends into an umbilical hernia that does not contain bowel. Right hip prosthesis partially visualized. No evidence of complication. There is joint space narrowing, osteophytosis, and subchondral sclerosis of the left hip. Femoral hea d contour is maintained. Minimal intracapsular joint fluid. Immediately anterior to the left femoral head within the joint fluid is a well-corticated oval 0.9 cm calcification. No acute fracture or dislocation evident. Sacrum and pelvic rings are intact. There are degenerative changes of the partially visualized lower lumbar spine. Bilateral spondylolysis at the L4-5 level with minimal spondylolisthesis. IMPRESSION : No acute osseous abnormalities are demonstrated. Degenerative changes left hip with small joint effusion and intracapsular loose body. Atherosclerosis. Right hip prosthesis.
[2019-10-13] MEDS ORDERED: Bacteriostatic Water 30 ML VIAL FS PRN (02:06)
--- NOTE | 2019-10-13 03:41 | HP ---
REASON FOR ADMISSION: Left hip pain. HISTORY OF PRESENT ILLNESS: This is a 78-year-old female patient who was going on her lift chair at home, and her body got twisted immediately. She started feeling pain in her left hip, worse with movement. She described the pain as sharp in nature, radiating to her whole leg. She reports decreased sensation below left knee area. This pain prompted her to present to the ER. She required to receive multiple doses of morphine. Her x-rays so far are not revealing if any fracture, but the patient continues to complain of pain. When EMS arrived, she was noted to be in rapid atrial fibrillation and was started on a Cardizem drip, she is on Coumadin but her INR is sub-therapeutic. She tells me that last week she was instructed not to take her Coumadin, the reasoning behind that is not very clear. She also reports bilateral lower extremity swelling that is not responding to her dose of Lasix. She also reports that her urine has been cloudy and smelly. I did review her records, and patient was in our hospital in May of this year. At that time, she presented with shortness of breath, diagnosed with community-acquired pneumonia and COPD exacerbation with suboptimally managed congestive heart failure. She was started on antibiotics and steroids, and her breathing improved. Since then, she has been doing fairly well until recently. PAST MEDICAL HISTORY: 1. COPD, on home oxygen 4 L nasal cannula. 2. Asthma. 3. Atrial fibrillation, on Coumadin. 4. High blood pressure. 5. Hyperlipidemia. 6. Status post mitral valve replacement. 7. Renal cancer with splenic metastasis. 8. Lymphoma. 9. Osteoarthritis. 10. Post-bladder suspension. 11. Hernia repair. 12. Hysterectomy. 13. Appendectomy. 14. Nephrectomy. SOCIAL HISTORY: She quit smoking after 50 years of smoking. ALLERGIES: TO CODEINE. REVIEW OF SYSTEMS: All systems reviewed except for the above mentioned, found to be negative. FAMILY HISTORY: Negative for premature coronary artery disease. PHYSICAL EXAMINATION: GENERAL: She is awake, alert, oriented, does not appear in distress. VITAL SIGNS: Her blood pressure is 156/99, pulse of 89, saturating 92% on 3 L oxygen. HEENT: Head is nontraumatic, normocephalic. Pupils are equal and reactive. Extraocular movements are intact. Nonicteric sclerae. Well injected conjunctivae. Oral mucosa normal. Nasal mucosa normal. NECK: Supple. No adenopathy. No murmur. Thyroid is not palpable. Trachea is midline. No supraclavicular adenopathy. HEART: S1, S2, regular. No murmur. No gallops. No friction rubs. No displacement of PMI. LUNGS: Decreased air entry bilaterally. Bilateral end-expiratory rhonchi. ABDOMEN: Bowel sounds are positive. Nontender abdomen. EXTREMITIES: She does have 2+ pitting edema at bilateral lower extremities. NEURO: She is moving her upper extremities. She is able to move her left lower extremity but limited due to pain. Sensory exam of the left lower extremity reveals decreased sensation below the left knee area. Progressing up to above the knee, towards the hip, the sensation improves. Normal sensory function involving the right lower extremity. SKIN: Examination of the skin reveals multiple bruises on the arm and the legs, which are chronic as per the patient. LABORATORY DATA: Blood work shows a WBC of 14.2, hemoglobin of 13.4, platelets of 199. INR of 1.1. Sodium 139, potassium 4.5, bicarb 32 previously 36, creatinine 1.57 previously 1.84, glucose 190. Urinalysis pending. Lower extremity CT shows no acute osseous abnormality, DJD of the left hip with small joint effusion, and intracapsular loose body. Femur x-ray shows no acute abnormality. Knee x-ray shows severe osteoarthritis. No acute abnormality. ASSESSMENT AND PLAN: This is a 78-year-old female patient presenting after twisting her body which resulted in severe left hip pain, but no fracture is evident. On the other hand, she does have decreased sensory function below the knee area. Also, she was found to be in rapid atrial fibrillation. Also, her INR is sub-therapeutic, and she reports foul-smelling urine. We are awaiting urinalysis results. Musculoskeletal: The patient does have decreased sensation in the area below the left knee. I will consult Orthopedic Surgery to give us their opinion whether we need to do an MRI of the lumbosacral area or the left hip. Until then, we will have her on IV morphine on as-needed basis. Pulmonary: The patient appears to be in chronic obstructive pulmonary disease exacerbation. We will resume her neb treatments, and we will have her on IV Solu-Medrol. Her chest x-ray is not revealing any evidence of pneumonia. : The patient has presumed urinary tract infection. I am awaiting the urinalysis to be done, and I plan to start her on IV antibiotic if the urinalysis is positive. Cardiac: The patient is in rapid atrial fibrillation, currently controlled on a Cardizem drip. She is supposed to be on Coumadin but has not taken her Coumadin for the past week. Her INR is subtherapeutic. She does have a mitral valve and needs to be anticoagulated for that reason. I will start her on Lovenox bridging her until the INR is therapeutic. The patient does have swelling of bilateral lower extremities that is not responding to Lasix. We will do a Doppler of lower extremity to make sure she does not have DVT. I did discuss with her code status, she wishes to be a full code. Job ID: [id number]
[2019-10-13] MEDS: Morphine 2 MG/ML VIAL SLOW IVP PRN ×5 (04:04→22:08)
[2019-10-13] MEDS ORDERED: BUDESONIDE INH PRN (04:12)
[2019-10-13] MEDS ORDERED: Nitroglycerin 0.4 MG TAB (25 Tab Bottle) SL PRN ×2 (04:12→04:22)
[2019-10-13] MEDS ORDERED: FORMOTEROL FUMARATE INH PRN (04:12)
[2019-10-13 04:38] LABS: Bilirubin Negative (Negative); Blood, Urine 1+ (Negative); Clarity Turbid (Clear); Glucose, Urine (Dipstick) Normal (Negative); Ketone, Urine Negative (Negative); Leukocyte 500 Leu/uL (Negative); Nitrite 1+ (Negative); Protein, Urine (Dipstick) 30 mg/dL (Neg-Trace); Specific Gravity, Urine 1.022 (1.002-1.036); Squamous Epithelial 0-3 HPF (0-3); Urobilinogen Normal mg/dL (Less than 2); WBC/HPF Greater than 50 HPF (0-3)
[2019-10-13 04:40] LABS: Bacteria/HPF 3+ HPF (None Seen)
[2019-10-13 04:42] LABS: Urine Culture Reflex Yes Yes
[2019-10-13 04:57] LABS: Anion Gap 16 mmol/L (10-20); BUN (Urea Nitrogen) 36 mg/dL (9.8-20.1); Calc. Creatinine Clearance 59 mL/min (70-130); Carbon Dioxide 32 mmol/L (23-31); Chloride 98 mmol/L (98-107); Estimated GFR-MDRD 39; Glucose 134 mg/dL (83-110); Sodium 141 mmol/L (136-145)
[2019-10-13 05:37] LABS: INR-International Normal Ratio 1.1; Prothrombin Time 13.8 sec (12.0-14.7)
[2019-10-13] MEDS: Levothyroxine 150 MCG TAB PO SCH (06:40)
[2019-10-13] MEDS: cefTRIAXone\\ROCEPHIN 1 GM in Sodium Chloride 0.9% 100 ML IVPB SCH (06:40)
[2019-10-13 07:56] LABS: Mean Corpuscular HGB CONC 31.2 g/dL (32.0-36.0); Mean Corpuscular Volume 96.1 fL (78.0-98.0); Mean Platelet Volume 8.8 fL (7.4-10.4); Platelet Count 181 thou/uL (130-400); RBC Distribution Width 18.3 % (11.5-14.5); Red Blood Cell (RBC) Count 4.33 mill/uL (4.20-5.40); White Blood Cell (WBC) Count 13.7 thou/uL (4.8-10.8)
[2019-10-13 08:38] LABS: #Basophils 0.1 thou/uL (0.0-0.2); #Eosinphils 0.3 thou/uL (0.0-0.7); #Monocytes 0.9 thou/uL (0.11-0.59); #Neutrophils 11.4 thou/uL (1.40-6.50); %Basophils 0.5 % (0.0-1.0); %Eosinophils 2.3 % (0.0-10.0); %Lymphocytes 7.4 % (21.0-51.0); %Monocytes 6.5 % (0.0-10.0); %Neutrophils 83.3 % (42.0-75.0)
[2019-10-13] MEDS ORDERED: Prevnar 13-Val Conj/PF 0.5 ML SYRINGE IM ONE (09:00)
[2019-10-13] MEDS ORDERED: Enoxaparin Sodium 120 MG/0.8 ML SYRINGE SC SCH (09:00)
[2019-10-13] MEDS ORDERED: Heparin 5,000 UNITS/ML VIAL SC SCH (09:00)
[2019-10-13 09:12] LABS: Band 2 % (5-11); Lymphocytes 5 % (21-51); MDiff Complete? YES; Monocytes 3 % (0-10); Neutrophil 90 % (42-75); Platelet Morphology Comment Appears Adequate
[2019-10-13] MEDS: methylPREDNISolone Sod Succ 40 MG VIAL IVP SCH ×3 (09:36→20:01)
[2019-10-13] MEDS ORDERED: Dexamethasone 20 MG/5 ML VIAL ONE (09:46)
[2019-10-13] MEDS ORDERED: Ondansetron PF 4 MG/2 ML Vial ONE (09:46)
[2019-10-13] MEDS ORDERED: PROPOFOL 200 MG/20 ML VIAL ONE (09:46)
[2019-10-13] MEDS ORDERED: PHENYLEPHRINE-NS 100 MCG/ML 10 ML SYRINGE ONE (09:46)
[2019-10-13] MEDS ORDERED: Rocuronium Bromide 10 MG/ML (10ML VIAL) ONE (09:46)
[2019-10-13] MEDS ORDERED: Succinylcholine Chloride 20 MG/ML 10 ml SYRINGE FS ONE (09:46)
--- NOTE | 2019-10-13 09:48 | PDOC.EVN ---
Event Note - Event Note Event Note: Left lower extremity ischemia: Was notified by orthopedic service this morning that on their exam the patient had a "cold leg". When evaluating the patient she continues to report fairly significant pain in her left lower extremity. She reports she feels like she has a "knot" in her left upper posterior buttock area. She also continues to have some cough which is relatively wet. Her heart is irregular but well rate controlled. Her lungs have scattered rales bilaterally. Her lower extremities are notable for a cool right foot to touch. Her left lower extremity is cold to touch up to the level of the lower thigh. There is mottling of the lower calf and foot. This is still blanchable. Case was communicated to Dr. Orellana. He is currently in the OR. He will see the patient as soon as possible. Given the patient's chronic stage III-IV kidney disease CT angiogram may be risky with regards to worsening her renal function. Patient has been made aware of the plan. Holding Lovenox for now until she can be evaluated by vascular surgery. Continue pain control measures. Atrial fibrillation: Patient has permanent A. fib she is currently on a Cardizem drip as she presented with rapid ventricular rate. She currently has a controlled rate. She has not been taking her Coumadin and her INR is 1.1. Mechanical mitral valve: Patient has a mechanical mitral valve and needs anticoagulation. She has been receiving Lovenox here. This is been at therapeutic dosing. That is briefly held for now until she can be evaluated by vascular surgery. Once that plan is known will resume anticoagulation as promptly as possible. 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 Currently her GFR is 39. That is the best GFR she has reported over the last several years. Will need to be judicious with the use of contrast. She is followed by Dr. Hackett at [facility]. Coronary artery disease: Patient has known coronary artery disease with prior stents x5. She is followed by Dr. Preston at [facility]. COPD: Patient has advanced COPD with chronic hypoxic respiratory failure requiring 4 L /min of home oxygen. She currently is experiencing a bit of a wet cough. She has a COVID test pending. Continuing with her usual home regimen. Urinary tract infection: Patient has evidence of urinary tract infection that sounds like it may have been symptomatic as well. She continues on Rocephin. Follow-up cultures.
[2019-10-13] MEDS ORDERED: Heparin 1,000 UNITS/ML VIAL SLOW IVP SCH (11:00)
[2019-10-13] MEDS: Diltiazem 125 MG in Sodium Chloride 0.9% 100 ML IVPB SCH ×2 (11:06→21:51)
--- NOTE | 2019-10-13 11:26 | ULT ---
EXAM: Bilateral lower extremity venous ultrasound HISTORY: Edema COMPARISON: None TECHNIQUE: Multiplanar grayscale and color Doppler images were obtained in a bilateral lower extremit y venous ultrasound. Spectral analysis of the Doppler waveforms were performed. FINDINGS: Right lower extremity: common femoral vein, profunda femoral veins, superficial femoral veins, and po pliteal veins are normal in appearance without visible thrombus. These vessels demonstrate normal compression, flow, and augmentation. The right, profunda femoral veins and greater saphenous veins are patent without evidence of DVT. Rig ht posterior tibial vein is not appreciated Left lung; common femoral vein, possible and mid femoral vein are normal in appearance without visibl e thrombus. These vessels demonstrate normal compression flow and augmentation. There is partial compressibility and diminished flow in the distal femoral vein and popliteal vein. The left posterior tibial vein, profunda femoral vein, greater saphenous vein are patent without evid ence of DVT. IMPRESSION: Nonocclusive thrombus in the left distal femoral vein and popliteal vein.
[2019-10-13] MEDS ORDERED: Heparin 5,000 UNITS/ML VIAL SLOW IVP SCH (11:30)
[2019-10-13] MEDS ORDERED: EPINEPHrine 1 MG/ML AMP ONE (12:00)
[2019-10-13] MEDS ORDERED: Bupivacaine PF 0.5% 30 ML VIAL ONE (12:00)
[2019-10-13] MEDS ORDERED: Iothalamate Meglumine 60% 50 ML VIAL FS ONE (12:02)
--- NOTE | 2019-10-13 12:02 | CT ---
EXAM: CTA abdomen and pelvis HISTORY: Left lower extremity ischemia COMPARISON: CT abdomen 10/30/2011 TECHNIQUE: Multiple contiguous axial images were obtained a CTA of the abdomen and pelvis without and with contrast. Sagittal and coronal 3-D MIP reformats were performed. FINDINGS: LIVER: Unremarkable. GALLBLADDER: Calcified gallstone. KIDNEYS: Absent right kidney. No significant left kidney abnormality. ADRENAL GLANDS: 2.9 cm right adrenal mass. Hyperplasia of the left adrenal gland. SPLEEN: Subtle 1.8 cm hypodensity in the inferior tip of the spleen.. PANCREAS: Unremarkable. REPRODUCTIVE ORGANS: Status post hysterectomy BOWEL: Unremarkable. RETROPERITONEUM: No lymphadenopathy ABDOMINAL WALL SOFT TISSUES: Unremarkable BONES: Degenerative and postsurgical changes in the spine. Hardware seen in the right femur. ABDOMINAL AORTA: Normal caliber without evidence of dissection or aneurysmal dilatation. Moderate dif fuse atherosclerotic disease CELIAC TRUNK: Patent SMA: Patent KINGSLEY: Patent RENAL ARTERIES: Mild ostial atherosclerotic disease of the left renal artery. COMMON ILIAC ARTERIES: There is occlusion of the proximal left common iliac artery. No significant fl ow is seen in the left internal or external iliac arteries. Patent moderately diseased right common iliac artery. IMPRESSION: Occlusion of left common iliac artery.
[2019-10-13] MEDS ORDERED: Fentanyl 100 MCG/2 ML VIAL ONE (12:24)
[2019-10-13] MEDS: Carvedilol 6.25 MG TAB PO SCH ×2 (12:38→16:11)
[2019-10-13] MEDS: Furosemide 40 MG TAB PO SCH (12:39)
[2019-10-13] MEDS: Fish Oil 1,000 MG CAP PO SCH (12:39)
[2019-10-13] MEDS: Calcium Carbonate 600 MG + Vit D TAB PO SCH (12:39)
[2019-10-13] MEDS: Multivitamin W/ Minerals 1 TAB PO SCH (12:39)
[2019-10-13] MEDS: Metolazone 2.5 MG TAB PO SCH (12:39)
[2019-10-13] MEDS: Ferrous Sulfate 325 MG TAB PO SCH ×2 (12:39→16:11)
[2019-10-13] MEDS ORDERED: Protamine Sulfate 50 MG/5 ML VIAL ONE (13:00)
[2019-10-13] MEDS ORDERED: Heparin 5,000 UNITS/ML VIAL ONE (13:00)
[2019-10-13 13:19] LABS: SARS-CoV-2 MS2 Positive; SARS-CoV-2 N Gene Negative; SARS-CoV-2 S Gene Negative; SARS-CoV-2 by NAA Not Detected (NotDetected); SARS-CoV-2 orf1ab Negative
[2019-10-13] MEDS ORDERED: Ondansetron HCl/PF 4 MG/2 ML Vial IVP PRN (14:11)
[2019-10-13] MEDS ORDERED: Iopamidol-370 76% 500 ML 1 ML ONE (14:43)
[2019-10-13] MEDS ORDERED: Albuterol Sulfate 1.25 MG/3 ML NEB ONE (14:44)
--- NOTE | 2019-10-13 15:29 | OP ---
DATE OF PROCEDURE: 10/13/2019 PREOPERATIVE DIAGNOSIS: Embolic event to her left leg. POSTOPERATIVE DIAGNOSIS: Embolic event to her left leg. PROCEDURE PERFORMED: Left femoral artery exploration with embolectomy. ANESTHESIA: General endotracheal. ESTIMATED BLOOD LOSS: 100. DESCRIPTION OF PROCEDURE: After consent was obtained, the patient was brought to the operating room and placed in supine position on the operating table. Appropriate central line and monitors were placed, and general endotracheal anesthesia was induced. Left groin was prepped and draped in usual sterile fashion. Skin incision was made over the left common femoral artery and dissection down to the femoral system was obtained with electrocautery. Sharp dissection was used to expose the superficial femoral profunda femoris large lateral left branch and common femoral artery. The patient was given 10,000 units total of heparin, 5000 units preoperatively and another 5000 units in the operating room. The common femoral artery was opened longitudinally. #4 Charmaine passed proximally into the iliac system without difficulty. This was withdrawn with a large volume of clot removed along with white thrombus. There was brisk antegrade bleeding. The artery was flushed with heparinized saline and clamped. Catheter only passed to about 15 cm down the superficial femoral artery with minimal clot return. There was brisk backbleeding from the profunda. Arteriotomy was closed in a two-layer running fashion with 5-0 Prolene suture. Antegrade flow was re-established. The wounds were copiously irrigated. Heparin was not reversed. The wounds were then closed in layers and skin closed with clips. The patient tolerated the procedure well, was transferred to the recovery room and intensive care unit in stable condition. Job ID: [id number] [facility]
[2019-10-13] MEDS ORDERED: Fentanyl 100 MCG/2 ML VIAL SLOW IVP PRN ×2 (15:45)
[2019-10-13] MEDS ORDERED: Heparin 10,000 UNITS/ 10 ML VIAL SLOW IVP SCH (15:45)
--- NOTE | 2019-10-13 15:56 | CON ---
DATE OF CONSULTATION: 10/13/2019 HISTORY OF PRESENT ILLNESS: I was called by Dr. Stack to see Ms. Clemens. She has a history of at 11:00 a.m. on 10/11, the acute onset of left leg pain. She lost function of her left leg, called EMS and was brought to the emergency department. She was admitted through the emergency department at 9:00 p.m. She was found this morning by Dr. Stack to have a cold pulseless left leg. This is new for her. The patient has a history of chronic atrial fibrillation and a mechanical mitral valve prosthesis. She had an INR checked on last Friday at [facility] with an INR of 11.9. She was instructed to hold her Coumadin. She had it rechecked this Friday, it was 1.1. She had not received any further instructions since being told to hold her Coumadin 10 days ago. She was evaluated along with Dr. Olguin. An echocardiogram was performed, which shows an ejection fraction of 10% to 15%. There was significant debris around the mitral valve. I checked brief vascular exam. On the right, she has a palpable femoral pulse with a warm leg throughout. Doppler was present in the right dp/pt. On the left, I could not palpate a femoral pulse. Her left leg was cold from the hip to the foot and mottled. She had no motor function at this time and was anesthetic in the left foot. She was emergently taken for CT angiogram. This showed acute cutoff of the iliac artery at the aortic bifurcation. She was then taken to the operating room for further exploration. PAST MEDICAL HISTORY: 1. Coronary artery disease, status post multivessel stenting. 2. Mitral disease, status post mechanical prosthetic valve replacement. 3. Chronic atrial fibrillation. 4. COPD, on 4 L home oxygen. 5. Dyslipidemia. 6. Hypertension. 7. History of renal cancer, status post nephrectomy. 8. History of lymphoma. 9. History of previous tobacco abuse. 10. Morbid obesity. PAST SURGICAL HISTORY: 1. Mitral valve replacement. 2. Nephrectomy. 3. Bladder suspension. 4. Hernia repair. 5. Hysterectomy. 6. Appendectomy. 7. Multivessel coronary stenting. SOCIAL HISTORY: She quit smoking years ago. ALLERGIES: CODEINE. REVIEW OF SYSTEMS: Not performed due to the acuity of situation. PHYSICAL EXAMINATION: GENERAL: This is a morbidly obese woman, resting in bed significant complaint other than her left leg hurts. VITAL SIGNS: Height is 5 feet and 4 inches, weight is 250 pounds. Pulse is irregularly irregular with a rate in the 100s on a Cardizem drip. Blood pressure is 168/86. HEENT: Sclerae are nonicteric. Pupils equal and round bilaterally. NECK: Supple without bruit. CHEST: Clear bilaterally. CARDIAC: Heart rhythm is irregularly irregular. I cannot hear a mitral valve click, but Dr. Olguin thought she could hear click on the left lateral chest wall. ABDOMEN: Obese, soft, and nontender. EXTREMITY: As above. Pulse exam is as above. I could not Doppler pulses in her left leg from femoral down into tibial arteries. ASSESSMENT AND PLAN: Probable embolic event to the left leg. Taking to OR for operative exploration and embolectomy. Worrisome that she is so far into the event with no motor or sensory function intact at this time. Job ID: [id number] [facility]
[2019-10-13] MEDS: Heparin 25,000 units/D5W 500 ML IVPB SCH (16:11)
[2019-10-13 16:46] LABS: Hemoglobin 12.6 g/dL (12.0-16.0); Platelet Count 172 thou/uL (130-400)
--- NOTE | 2019-10-13 16:46 | CON ---
DATE OF CONSULTATION: 10/13/2019 INDICATIONS FOR CONSULTATION: A 78-year-old female who has undergone a mitral valve replacement in the past with mechanical mitral valve, has history of chronic atrial fibrillation, was admitted with a left cold lower extremity. We were asked to see her due to her mitral valve and also chronic atrial fibrillation. HISTORY OF PRESENT ILLNESS: This is a very unfortunate 78-year-old female who has had a long history of cardiac problems. She underwent a rather urgent mitral valve replacement in 2009, I believe, which was done in [place] by Dr. Kim. At that time, she was seeing Dr. Nath. At some point in time, she changed over to [facility] and she again was seen here about 2 years ago back in [address] Pearson. At that time, she was complaining of some chest discomfort. She has undergone cardiac catheterizations in the past, and I believe has had stent placement and also underwent bypass surgery. She has had multiple stent placements by Dr. Antione Pham at [facility]. I last saw her here in the hospital as a consult back in, I believe, May of this year. At that time, she was having some coughing and some congestive heart failure type symptoms. Ejection fraction at that time was 35% to 40%. At this time, she presents again. I do not think she has had bypass surgery. I think she has only had stent placements. She does have chronic atrial fibrillation. She has undergone cardioversion in the past back in March of this year. There had been some discussion about possible radiofrequency ablation of atrial fibrillation; however, it was felt that she was not a good candidate for this and this has not been performed, but she was on a rate control. She has been on chronic Coumadin due to her history of atrial fibrillation and also mechanical mitral valve. Approximately 1 to 2 weeks ago, apparently, she was seen in the Coumadin Clinic at [facility] and the INR was reported to be 11. At that time, she was told to hold her Coumadin. She then presented in the next about a week or so later or 10 days later just a few days ago and the INR was said to be 1.1. At this time, yesterday evening, she started complaining of pain in the left lower extremity, and about 6 o'clock yesterday evening, the pain was so bad, then she decided to come to the hospital and has been now at this time noted to have a left cold lower extremity, which appears to be mottled. There were no pulses palpable and the INR was now 1.1. We will start her back urgently on heparin and CT Surgery consultation has been requested for her peripheral vascular disease. It is possible that she has had a thrombus on the mitral valve or that she has had peripheral vascular disease, which due to the decrease in the INR has caused thrombosis of the left lower extremity. She does have multiple other medical problems, which include history of congestive heart failure, COPD, chronic atrial fibrillation. She is status post mitral valve replacement as noted. She also has chronic kidney disease. She has had a history of other medical problems, which we discussed in her past medical history. At this time, she is somewhat short of breath. She has some wheezing and she complains of some pain in the left lower extremity, but otherwise has been relatively stable since being here in the hospital, but will need to urgently address her left lower extremity. Her cardiac enzymes did not show any evidence of a myocardial infarction. Her renal function is relatively stable, on admission it was 1.57 and this morning it is 1.32. As noted, the INR was 1.1 back in May of this year, it originally was 2.7 on 06/19 and then increased up to 3.5 on 06/21/2019. PAST MEDICAL HISTORY: Significant for: 1. Congestive heart failure. 2. Coronary artery disease. 3. Angioplasty and stent placement. I am uncertain as to which vessels were stented. 4. She had history of atrial fibrillation. She had undergone cardioversion in 03/2019. 5. She has COPD in the form of asthma. She smoked in the past, she stopped in 2017. 6. She has chronic kidney disease. She has been managed by Dr. Meng. 7. She has a history of hypertension. 8. Dyslipidemia. 9. She has a history of depression and anxiety. 10. She has a history of renal cancer, which has been treated by chemotherapy. 11. History of Hodgkin disease and lymphoma, which apparently is in remission. 12. She had her last stent placed by Dr. Antione Pham in 2017. 13. She has had a history of mitral valve replacement as noted above. 14. She has had a hysterectomy. 15. Appendectomy. 16. Tonsillectomy. 17. Right knee surgery. 18. She has had a right wrist fracture repair. 19. She has had a left arm fracture repair. 20. She has had spinal cord surgery. 21. She has had her right kidney removed due to renal cell cancer. 22. She has had bilateral partial lumpectomies in 2018. FAMILY HISTORY: Her son also has some congestive heart failure and history of CVA. SOCIAL HISTORY: She lives in independent living. She is unable to walk due to her shortness of breath. She smoked in the past, but stopped in 2018. Previous to that, she smoked a pack a day for many years. She drinks occasional alcohol, but pretty rare. She is unable to do any significant exercise. ALLERGIES: SHE IS ALLERGIC TO CODEINE. MEDICATIONS: Include: 1. Zofran. 2. Solu-Medrol. 3. Prazosin. 4. Zoloft. 5. Desyrel. 6. Fish oil. 7. Seroquel. 8. DuoNebs. 9. Coreg. 10. Diltiazem, this is being given IV for rate control. 11. She has been given antibiotics; ceftriaxone for urinary tract infection. 12. Pramipexole or Mirapex. 13. Lipitor 40 mg q.p.m. 14. FeroSul. 15. Theragran-M. 16. Multivitamins. 17. Lasix 80 mg daily. 18. Budesonide and formoterol. 19. Imdur 30 mg daily. 20. Nitroglycerin p.r.n. as needed for chest pain. 21. Protonix 40 mg a day. 22. Zaroxolyn 2.5 mg daily. 23. Levothyroxine. 24. She has also been given 5000 units of heparin, will be continued on a heparin drip due to the thrombus. REVIEW OF SYSTEMS: Please refer to the notes dictated, but she denied any new HEENT complaints. She complains of chronic shortness of breath. She did complain of occasional chest discomfort. She does complain of pain in the left lower extremity. Mainly, she complains of shortness of breath and pain in the left leg. She denies any new neurologic complaints. PHYSICAL EXAMINATION: GENERAL: An elderly, ill-appearing female who is morbidly obese. She is alert. She is oriented. VITAL SIGNS: Her blood pressure is 138/84. She is afebrile. Heart rates in the 80s to 90s and shows atrial fibrillation. Respiratory rate is 22. O2 saturation is 97%. HEENT: Shows the head to be normocephalic and atraumatic. Carotid pulses are present. She has soft bilateral carotid bruits. It is difficult to hear actually over her respiratory noise. CHEST: She has expiratory wheezing bilaterally. CARDIOVASCULAR: Irregularly irregular rhythm. I can hear some clicking of the mitral valve. She does have a systolic murmur also noted at the apex. ABDOMEN: Morbid obesity. Positive bowel sounds are present. EXTREMITIES: No clubbing. She does have mottling of the left lower extremity. Left lower extremity is cold. I cannot palpate pulses in the entire left lower extremity including the femoral, popliteal, or pedal pulses. On the right side, I cannot palpate a popliteal pulse nor pedal pulses. I did feel very weak pulse on the right femoral area. NEUROLOGIC: She appears to be relatively intact. LABORATORY DATA: Her sodium is 141, potassium is 5, chloride was 98, bicarb was 32, her BUN is 36 with a creatinine of 1.32 and on admission was 1.57, blood sugar is 134 and on admission was 190, and AST was 43. Her INR is 1.1. Urinalysis shows 4+ bacteria. Her WBC is 13.7, hemoglobin was 13 with hematocrit of 41.6, and a platelet count of 181,000. Her EKG shows atrial fibrillation with occasional pacing. IMPRESSION: 1. Possible malfunction of the mitral valve due to low INR of 1.1. She may have developed a thrombus and may have embolized this to the left lower extremity or she may have significant peripheral vascular disease and with decreasing of the anticoagulation may have caused some occlusion of the left superficial femoral artery or even left common femoral artery. This will need to be addressed by the cardiovascular surgeons. She will be given IV heparin and was started on heparin drip. We will need to continue heparin drip until the INR is at least 2.5 to ensure that the mitral valve also does not have thrombosis. We will try to obtain records from [facility]. 2. History of coronary artery disease. She appears to be relatively stable at this time. We will need to obtain cardiac enzymes. I do not believe that any adequate cardiac enzymes have been obtained, but she is not complaining of any significant chest discomfort. 3. History of cardiomyopathy. She did have an echocardiogram earlier today. Ejection fraction is about 20% to 25%. Previously several months ago, she had an echocardiogram, which showed ejection fraction to be about 35% to 40%, uncertain as to whether or not this has been dealing with the acute mitral valve problem or whether or not this is due to infection associated with a urinary tract infection or possible myocardial infarction earlier. 4. History of hypertension. This is under relatively good control at this time. 5. History of chronic obstructive pulmonary disease. This may need to be addressed either by the primary care physician or by the culinary manager. She may need to have some type of inhaler. We will be happy to continue to follow the patient with you. Dr. Pearson has seen her back in 2018 for consultation. She also had been seen by Dr. Nath previously to that, and on her last admission, she was seen by me, but normally she is followed by [facility], I believe. Job ID: [id number]
[2019-10-13 16:54] LABS: PTT 124.9 sec (22.9-36.1)
[2019-10-13] MEDS ORDERED: Warfarin Sodium 5 MG TAB PO SCH (17:00)
[2019-10-13] MEDS ORDERED: Sodium Chloride 0.9% 1,000 ML IV SCH (18:15)
[2019-10-13] MEDS: CEFAZOLIN 2 GM in Premix Bag 1 BAG IVPB SCH (19:19)
[2019-10-13] MEDS: Pramipexole Di-HCl 0.25 MG TAB PO SCH (20:01)
[2019-10-13] MEDS: traZODone HCl 50 MG TAB PO SCH (20:02)
[2019-10-13] MEDS: Atorvastatin Calcium 40 MG TAB PO SCH (20:02)
[2019-10-13] MEDS: Prazosin HCl 1 MG CAP PO SCH (20:19)
--- NOTE | 2019-10-14 00:26 | CON ---
DATE OF CONSULTATION: 10/13/2019 REQUESTING PHYSICIAN: Dr. Mac Morales. CONSULTING PHYSICIAN: Dr. Jacques Quevedo. REASON FOR CONSULTATION: Left lower extremity pain and discomfort. BRIEF CLINICAL HISTORY: Brianda is a 78-year-old female who was admitted to [facility] on October 13, 2019 just after midnight. Our Service was formally consulted and notified at 0820 hours on October 13, 2019. I actually saw the patient, performed consult within an hour of being notified. The patient is a 78-year-old female, who was attempting to get out of her lift chair at home around 11 in the morning yesterday. She felt herself get in an awkward position and she felt a twist and felt like a mechanical onset of left buttock, thigh, and leg pain. It radiated into her whole leg. She also admits to decreased sensation at the same time. She remarks to me that she has had similar symptoms with "sciatica" in the past. EMS was dispatched and brought the patient to [facility] Emergency Room. Plain radiographs of the hip were unremarkable. Incidentally noted in her history, she had been off her Coumadin for some time, but I am not sure exactly how long it has been. She was found to be in atrial fibrillation with rapid ventricular response upon presentation, and I believe she was then admitted by the Medicine Team and placed on the stroke floor. She was started on Lovenox. She was admitted to the hospital around 1 in the morning, October 13, 2019. She describes her pain is radiating and uncomfortable. She also admits that she cannot move the left lower extremity. She has no symptoms on the right, nothing tends to make it worse and nothing tends to ameliorate her discomfort, but she has tolerated quite well surprisingly. PHYSICAL EXAMINATION: VITAL SIGNS: Temperature 97, blood pressure 130/84, O2 saturations 97% on 4 L nasal cannula, and heart rate 89. GENERAL: She is alert, responsive, and appropriate with examiner. She is very conversive and she does not appeared to be in any acute distress at the time of this examination. She is very pleasant to talk with, smiles and also humorous with the examiner. EXTREMITIES: Visual inspection of the left lower extremity demonstrates mottling of the skin on the dorsum of the foot. I cannot shad the skin. I do not see any venous dilatation and essentially have a cold limb with noticeable temperature differential just above the knee. Comparing to the right, she does have a cold foot on the right, but in and around the ankle, she has warmth on the leg. Both lower extremities have been covered up. I cannot palpate a pulse in the left lower extremity. She can dorsiflex and plantar flex on the right with full range of motion and 5/5 strength, but she cannot dorsiflex or plantar flex the left ankle. In fact, there is no passive motion noted and essentially feels like a captured joint or a fused joint. This is a new finding for this particular patient. IMPRESSION: I believe the patient has a dysvascular limb, etiology unclear at this point, but it seems to be an acute or subacute arterial occlusion. PLAN: 1. Immediately upon leaving the patient's room, I notified her nurse that this is not an orthopedic problem, but rather an acute vascular occlusion and that she should notify the medicine team immediately and I will do the same by text. 2. I spoke with Dr. Sameer Stack before leaving the floor and informed him that a vascular evaluation would be a good idea, but I do not know how long this limb has been dysvascular and what further evaluation needs to be undertaken at this point given I do not know how long this has been a problem, but the stiff ankle is an indication that there has been some chronicity to this. The other interesting part of this particular issue is that I do not elicit a history of intractable pain from the patient suggesting acuity other than the discomfort she had just arrived yesterday. 3. At this point, we will sign off. Reconsult as needed. Job ID: [id number] [facility]
[2019-10-14] MEDS ORDERED: Acetaminophen 650 MG Suppository PR PRN (02:55)
[2019-10-14] MEDS: CEFAZOLIN 2 GM in Premix Bag 1 BAG IVPB SCH ×3 (03:03→20:44)
[2019-10-14] MEDS: Acetaminophen 325 MG TAB PO PRN ×3 (03:03→20:45)
[2019-10-14] MEDS: Levothyroxine 150 MCG TAB PO SCH (05:53)
[2019-10-14 06:45] LABS: PTT 124.9 sec (22.9-36.1)
[2019-10-14 07:01] LABS: Anion Gap 11 mmol/L (10-20); BUN (Urea Nitrogen) 36 mg/dL (9.8-20.1); Calc. Creatinine Clearance 52 mL/min (70-130); Calcium 7.8 mg/dL (7.8-10.44); Carbon Dioxide 32 mmol/L (23-31); Chloride 94 mmol/L (98-107); Estimated GFR-MDRD 33; Glucose 172 mg/dL (83-110); Potassium 5.3 mmol/L (3.5-5.1); Sodium 132 mmol/L (136-145)
[2019-10-14 07:23] LABS: #Eosinphils 0.1 thou/uL (0.0-0.7); #Lymphocytes 0.6 thou/uL (1.20-3.40); #Monocytes 0.5 thou/uL (0.11-0.59); #Neutrophils 13.6 thou/uL (1.40-6.50); %Basophils 0.1 % (0.0-1.0); %Eosinophils 0.4 % (0.0-10.0); %Lymphocytes 4.3 % (21.0-51.0); %Monocytes 3.2 % (0.0-10.0); %Neutrophils 92.1 % (42.0-75.0); Band 9 % (5-11); Hemoglobin 10.6 g/dL (12.0-16.0); Lymphocytes 8 % (21-51); MDiff Complete? YES; Mean Corpuscular HGB CONC 31.4 g/dL (32.0-36.0); Mean Corpuscular Hemoglobin 30.3 pg (27.0-31.0); Mean Corpuscular Volume 96.5 fL (78.0-98.0); Mean Platelet Volume 8.8 fL (7.4-10.4); Metamyelocyte 1 % (0-0); Monocytes 1 % (0-10); Neutrophil 81 % (42-75); Platelet Count 119 thou/uL (130-400); Platelet Morphology Comment Appears Decreased; RBC Distribution Width 17.8 % (11.5-14.5); RBC Morphology Normal; White Blood Cell (WBC) Count 14.7 thou/uL (4.8-10.8)
[2019-10-14] MEDS: Metolazone 2.5 MG TAB PO SCH (09:16)
[2019-10-14] MEDS: Calcium Carbonate 600 MG + Vit D TAB PO SCH (09:16)
[2019-10-14] MEDS: Furosemide 40 MG TAB PO SCH (09:16)
[2019-10-14] MEDS: Fish Oil 1,000 MG CAP PO SCH (09:16)
[2019-10-14] MEDS: Carvedilol 6.25 MG TAB PO SCH ×2 (09:17→17:13)
[2019-10-14] MEDS: Ferrous Sulfate 325 MG TAB PO SCH ×2 (09:18→17:14)
[2019-10-14] MEDS: Multivitamin W/ Minerals 1 TAB PO SCH (09:19)
[2019-10-14] MEDS: cefTRIAXone\\ROCEPHIN 1 GM in Sodium Chloride 0.9% 100 ML IVPB SCH (09:22)
[2019-10-14] MEDS: Diltiazem 125 MG in Sodium Chloride 0.9% 100 ML IVPB SCH ×2 (11:07→23:25)
--- NOTE | 2019-10-14 16:02 | PDOC.HOSPP ---
- Subjective Encounter Date: 10/14/19 Subjective: Patient says she is not doing well. This is based on the fact that her leg has not recovered. She understands that if it does not improve significantly soon that she may be facing a below the knee amputation. Talk to her about her family situation. She reports she has 3 sons. 1 of them was in accident and is very debilitated. Another is essentially homeless and using drugs somewhere in [place]. Her third son whom lives locally is in very poor health himself. - Objective Vital Signs & Weight: Vital Signs (12 hours) Temp Pulse Resp BP Pulse Ox 10/14/19 14:23 80 20 99 10/14/19 12:00 98.0 F 10/14/19 09:17 124/58 L 10/14/19 08:00 98.3 F 94 L Weight Admit Weight 239 lb 12.8 oz Weight 239 lb 12.8 oz Most Recent Monitor Data Heart Rate from ECG 77 NIBP 120/74 NIBP BP-Mean 89 Respiration from ECG 39 SpO2 91 I&O: 10/13/19 10/14/19 10/15/19 06:59 06:59 06:59 Intake Total 1949 460 Output Total 500 450 Balance 1449 10 Result Diagrams: 10/14/19 06:23 10/14/19 06:23 Hospitalist ROS - Medication Medications: Active Medications Generic Name Dose Route Start Last Admin Trade Name Freq PRN Reason Stop Dose Admin Acetaminophen 650 mg 10/14/19 02:56 10/14/19 14:08 Tylenol PO 650 mg Q4H PRN Administration Headache/Fever or Pain Albuterol/Ipratropium 3 ml 10/13/19 07:00 10/14/19 14:23 Duoneb NEB 3 ml [id number] LISA Administration Atorvastatin Calcium 40 mg 10/13/19 21:00 10/13/19 20:02 Lipitor PO 40 mg HS LISA Administration Calcium/Vitamin D 1 tab 10/13/19 09:00 10/14/19 09:16 Caltrate 600 + Vit D PO 1 tab DAILY LISA Administration Carvedilol 6.25 mg 10/13/19 08:00 10/14/19 09:17 Coreg PO 6.25 mg BID-WM LISA Administration Ferrous Sulfate 325 mg 10/13/19 09:00 10/14/19 09:18 Feosol PO 325 mg 0900,1700 LISA Administration Fish Oil 1,000 mg 10/13/19 09:00 10/14/19 09:16 Fish Oil PO 1,000 mg DAILY LISA Administration Furosemide 80 mg 10/13/19 09:00 10/14/19 09:16 Lasix PO 80 mg DAILY LISA Administration Diltiazem HCl 125 mg/ Sodium 125 mls @ 10 mls/hr 10/13/19 02:00 10/14/19 11: 07 Chloride IVPB 125 mls INF LISA Administration Protocol 10 MG/HR Ceftriaxone Sodium 1 gm/ 100 mls @ 200 mls/hr 10/13/19 07:00 10/14/19 09:22 Sodium Chloride IVPB 100 mls Q24HR LISA Administration Cefazolin Sodium/Dextrose 2 gm 50 mls @ 100 mls/hr 10/13/19 20:00 10/14/19 12 :36 / Device IVPB 10/14/19 20:29 50 mls 0400,1200,2000 LISA Administration Heparin Sodium/Dextrose 500 mls @ 0 mls/hr 10/13/19 15:45 10/13/19 16:11 Heparin 25,000 Units/D5w IVPB 500 mls INF LISA Administration Protocol Per Protocol Iron/Minerals/Multivitamins 1 tab 10/13/19 09:00 10/14/19 09:19 Theragran M PO 1 tab DAILY LISA Administration Isosorbide Mononitrate 30 mg 10/13/19 09:00 10/14/19 09:17 Imdur Er PO 30 mg DAILY LISA Administration Levothyroxine Sodium 150 mcg 10/13/19 06:00 10/14/19 05:53 Synthroid PO 150 mcg 0600 LISA Administration Metolazone 2.5 mg 10/13/19 09:00 10/14/19 09:16 Zaroxolyn PO 2.5 mg DAILY LISA Administration Morphine Sulfate 2 mg 10/13/19 18:05 10/13/19 22:08 Morphine SLOW IVP 2 mg Q2H PRN Administration Pain Pantoprazole Sodium 40 mg 10/13/19 09:00 10/14/19 09:19 Protonix PO 40 mg DAILY LISA Administration Pramipexole Dihydrochloride 0.5 mg 10/13/19 21:00 10/13/19 20:01 Mirapex PO 0.5 mg HS LISA Administration Prazosin HCl 1 mg 10/13/19 21:00 10/13/19 20:19 Minipress PO 1 mg HS LISA Administration Quetiapine Fumarate 300 mg 10/13/19 21:00 10/13/19 20:19 Seroquel PO 300 mg HS LISA Administration Sertraline HCl 100 mg 10/13/19 09:00 10/14/19 09:17 Zoloft PO 100 mg DAILY LISA Administration Trazodone HCl 50 mg 10/13/19 21:00 10/13/19 20:02 Desyrel PO 50 mg HS LISA Administration - Exam General Appearance: NAD, awake alert General - other findings: Morbidly obese Heart: RRR, no gallops, no rubs, normal peripheral pulses, II/IV Respiratory: CTAB, no wheezes, no rales, no ronchi, normal chest expansion, no tachypnea, normal percussion Gastrointestinal: soft, non-tender, non-distended, normal bowel sounds, no palpable masses, no hepatomegaly, no splenomegaly, no bruit Extremities: no cyanosis, no clubbing, no edema Skin: normal turgor Neurological: cranial nerve grossly intact Neurological - other findings: Decreased sensation of the left lower extremity from about the knee down Musculoskeletal - other findings: Left lower extremity is cold to touch from the upper calf distal. Psychiatric: normal affect, normal behavior, A&O x 3 Hosp A/P (1) Critical ischemia of lower extremity Code(s): I99.8 - OTHER DISORDER OF CIRCULATORY SYSTEM Status: Acute (2) CAD (coronary artery disease) Code(s): I25.10 - ATHSCL HEART DISEASE OF [place] CORONARY ARTERY W/O ANG PCTRS Status: Chronic Qualifiers: Coronary Disease-Associated Artery/Lesion type: [place] artery [place] vs. transplanted heart: [place] heart Associated angina: without angina Qualified Code(s): I25.10 - Atherosclerotic heart disease of [place] coronary artery without angina pectoris (3) CKD (chronic kidney disease), stage III Code(s): N18.3 - CHRONIC KIDNEY DISEASE, STAGE 3 (MODERATE) Status: Chronic (4) COPD (chronic obstructive pulmonary disease) Status: Chronic Qualifiers: COPD type: chronic bronchitis (5) Chronic a-fib Code(s): I48.20 - CHRONIC ATRIAL FIBRILLATION, UNSPECIFIED Status: Chronic (6) Dyslipidemia Code(s): E78.5 - HYPERLIPIDEMIA, UNSPECIFIED Status: Chronic (7) H/O mitral valve replacement with mechanical valve Code(s): Z95.2 - PRESENCE OF PROSTHETIC HEART VALVE Status: Chronic (8) H/O unilateral nephrectomy Code(s): Z90.5 - ACQUIRED ABSENCE OF KIDNEY Status: Chronic (9) HTN (hypertension) Code(s): I10 - ESSENTIAL (PRIMARY) HYPERTENSION Status: Chronic (10) Cardiomyopathy Code(s): I42.9 - CARDIOMYOPATHY, UNSPECIFIED Status: Acute (11) Chronic respiratory failure with hypoxia Code(s): J96.11 - CHRONIC RESPIRATORY FAILURE WITH HYPOXIA Status: Acute - Plan Critical limb ischemia left lower extremity: Patient had a thrombectomy performed yesterday. Unfortunately she continues to show evidence of ischemic injury to the distal left lower extremity. She may require a below the knee amputation yet. Continue on a heparin drip. Vascular surgery following. Chronic atrial fibrillation: On heparin drip. Was on warfarin prior to admission however she had a normal INR. She has good rate control on a diltiazem drip after being tachycardic on initial presentation.. Mechanical mitral valve: Patient requires chronic anticoagulation with warfarin. Currently on heparin drip. Cardiomyopathy: Cardiology following. Patient has an ejection fraction that has worsened from her previous echocardiogram. Currently EF is around 20 to 25%. COPD: Stable. No evidence of exacerbation. Discontinue steroids. Chronic hypoxic respiratory failure: Secondary to COPD. Stable on her usual regimen of 4 L of nasal cannula oxygen. UTI: Growing gram-negative nakia on her urine culture. Continue Rocephin until results are known.
[2019-10-14] MEDS: Atorvastatin Calcium 40 MG TAB PO SCH (20:44)
[2019-10-14] MEDS: Prazosin HCl 1 MG CAP PO SCH (20:44)
[2019-10-14] MEDS: Pramipexole Di-HCl 0.25 MG TAB PO SCH (20:45)
[2019-10-14] MEDS: traZODone HCl 50 MG TAB PO SCH (20:45)
[2019-10-14] MEDS: Mometasone 200 MCG/Formoterol 5 MCG 120 PUFF INHALER INH SCH (22:27)
[2019-10-14] MEDS: Heparin 25,000 units/D5W 500 ML IVPB SCH (23:27)
[2019-10-15] MEDS: Acetaminophen 325 MG TAB PO PRN ×5 (01:08→22:17)
[2019-10-15] MEDS: Levothyroxine 150 MCG TAB PO SCH (05:51)
[2019-10-15] MEDS: cefTRIAXone\\ROCEPHIN 1 GM in Sodium Chloride 0.9% 100 ML IVPB SCH (06:05)
[2019-10-15] MEDS: Mometasone 200 MCG/Formoterol 5 MCG 120 PUFF INHALER INH SCH ×2 (07:24→19:41)
[2019-10-15] MEDS: Furosemide 40 MG TAB PO SCH (08:45)
[2019-10-15] MEDS: Carvedilol 6.25 MG TAB PO SCH ×2 (08:46→16:13)
[2019-10-15] MEDS: Fish Oil 1,000 MG CAP PO SCH (08:46)
[2019-10-15] MEDS: Calcium Carbonate 600 MG + Vit D TAB PO SCH (08:46)
[2019-10-15] MEDS: Ferrous Sulfate 325 MG TAB PO SCH ×2 (08:50→16:13)
[2019-10-15] MEDS: Multivitamin W/ Minerals 1 TAB PO SCH (08:50)
[2019-10-15] MEDS: Metolazone 2.5 MG TAB PO SCH (08:50)
--- NOTE | 2019-10-15 10:25 | PDOC.HOSPP ---
- Subjective Encounter Date: 10/15/19 Subjective: Patient is a bit sleepy today. Nurse concurred with that. - Objective Vital Signs & Weight: Vital Signs (12 hours) Temp Pulse Resp BP Pulse Ox 10/15/19 08:46 121/81 10/15/19 08:00 98.4 F 10/15/19 07:24 79 17 10/15/19 04:00 98.7 F 10/15/19 00:00 98.4 F 10/14/19 22:27 20 97 10/14/19 22:25 98 Weight Admit Weight 239 lb 12.8 oz Weight 239 lb 12.8 oz Most Recent Monitor Data Heart Rate from ECG 87 NIBP 121/81 NIBP BP-Mean 94 Respiration from ECG 17 SpO2 74 I&O: 10/14/19 10/15/19 10/16/19 06:59 06:59 06:59 Intake Total 1949 2558 240 Output Total 500 1200 250 Balance 1449 1358 -10 Result Diagrams: 10/14/19 06:23 10/14/19 06:23 Hospitalist ROS - Medication Medications: Active Medications Generic Name Dose Route Start Last Admin Trade Name Freq PRN Reason Stop Dose Admin Acetaminophen 650 mg 10/14/19 02:56 10/15/19 05:51 Tylenol PO 650 mg Q4H PRN Administration Headache/Fever or Pain Albuterol/Ipratropium 3 ml 10/13/19 07:00 10/15/19 07:24 Duoneb NEB 3 ml [id number] LISA Administration Atorvastatin Calcium 40 mg 10/13/19 21:00 10/14/19 20:44 Lipitor PO 40 mg HS LISA Administration Calcium/Vitamin D 1 tab 10/13/19 09:00 10/15/19 08:46 Caltrate 600 + Vit D PO 1 tab DAILY LISA Administration Carvedilol 6.25 mg 10/13/19 08:00 10/15/19 08:46 Coreg PO 6.25 mg BID-WM LISA Administration Ferrous Sulfate 325 mg 10/13/19 09:00 10/15/19 08:50 Feosol PO 325 mg 0900,1700 LISA Administration Fish Oil 1,000 mg 10/13/19 09:00 10/15/19 08:46 Fish Oil PO 1,000 mg DAILY LISA Administration Furosemide 80 mg 10/13/19 09:00 10/15/19 08:45 Lasix PO 80 mg DAILY LISA Administration Diltiazem HCl 125 mg/ Sodium 125 mls @ 10 mls/hr 10/13/19 02:00 10/14/19 23: 25 Chloride IVPB 125 mls INF LISA Administration Protocol 10 MG/HR Ceftriaxone Sodium 1 gm/ 100 mls @ 200 mls/hr 10/13/19 07:00 10/15/19 06:05 Sodium Chloride IVPB 100 mls Q24HR LISA Administration Heparin Sodium/Dextrose 500 mls @ 0 mls/hr 10/13/19 15:45 10/14/19 23:27 Heparin 25,000 Units/D5w IVPB 500 mls INF LISA Administration Protocol Per Protocol Iron/Minerals/Multivitamins 1 tab 10/13/19 09:00 10/15/19 08:50 Theragran M PO 1 tab DAILY LISA Administration Isosorbide Mononitrate 30 mg 10/13/19 09:00 10/15/19 08:50 Imdur Er PO 30 mg DAILY LISA Administration Levothyroxine Sodium 150 mcg 10/13/19 06:00 10/15/19 05:51 Synthroid PO 150 mcg 0600 LISA Administration Metolazone 2.5 mg 10/13/19 09:00 10/15/19 08:50 Zaroxolyn PO 2.5 mg DAILY LISA Administration Mometasone Furoate/Formoterol Fumar 2 puff 10/14/19 18:30 10/15/19 07:24 Dulera 200 Mcg/5 Mcg Inhaler INH 2 puff BID-RT LISA Administration Morphine Sulfate 2 mg 10/13/19 18:05 10/13/19 22:08 Morphine SLOW IVP 2 mg Q2H PRN Administration Pain Pantoprazole Sodium 40 mg 10/13/19 09:00 10/15/19 08:50 Protonix PO 40 mg DAILY LISA Administration Pramipexole Dihydrochloride 0.5 mg 10/13/19 21:00 10/14/19 20:45 Mirapex PO 0.5 mg HS LISA Administration Prazosin HCl 1 mg 10/13/19 21:00 10/14/19 20:44 Minipress PO 1 mg HS LISA Administration Quetiapine Fumarate 300 mg 10/13/19 21:00 10/14/19 20:44 Seroquel PO 300 mg HS LISA Administration Sertraline HCl 100 mg 10/13/19 09:00 10/15/19 08:49 Zoloft PO 100 mg DAILY LISA Administration Trazodone HCl 50 mg 10/13/19 21:00 10/14/19 20:45 Desyrel PO 50 mg HS LISA Administration - Exam General Appearance: NAD General - other findings: Somnolent. Appears to be moving and talking in a sleep like state though. Heart: RRR, no murmur, no gallops, no rubs, normal peripheral pulses Respiratory: CTAB, no wheezes, no rales, no ronchi, normal chest expansion, no tachypnea, normal percussion Respiratory - other findings: Diminished Gastrointestinal: soft, non-tender, non-distended, normal bowel sounds, no palpable masses, no hepatomegaly, no splenomegaly, no bruit Extremities - other findings: L LE with increased warmth down to the ankle. Blanchable. Musculoskeletal: generalized weakness Psychiatric: somnolent Hosp A/P (1) Critical ischemia of lower extremity Code(s): I99.8 - OTHER DISORDER OF CIRCULATORY SYSTEM Status: Acute (2) CAD (coronary artery disease) Code(s): I25.10 - ATHSCL HEART DISEASE OF [place] CORONARY ARTERY W/O ANG PCTRS Status: Chronic Qualifiers: Coronary Disease-Associated Artery/Lesion type: [place] artery [place] vs. transplanted heart: [place] heart Associated angina: without angina Qualified Code(s): I25.10 - Atherosclerotic heart disease of [place] coronary artery without angina pectoris (3) CKD (chronic kidney disease), stage III Code(s): N18.3 - CHRONIC KIDNEY DISEASE, STAGE 3 (MODERATE) Status: Chronic (4) COPD (chronic obstructive pulmonary disease) Status: Chronic Qualifiers: COPD type: chronic bronchitis (5) Chronic a-fib Code(s): I48.20 - CHRONIC ATRIAL FIBRILLATION, UNSPECIFIED Status: Chronic (6) Dyslipidemia Code(s): E78.5 - HYPERLIPIDEMIA, UNSPECIFIED Status: Chronic (7) H/O mitral valve replacement with mechanical valve Code(s): Z95.2 - PRESENCE OF PROSTHETIC HEART VALVE Status: Chronic (8) H/O unilateral nephrectomy Code(s): Z90.5 - ACQUIRED ABSENCE OF KIDNEY Status: Chronic (9) HTN (hypertension) Code(s): I10 - ESSENTIAL (PRIMARY) HYPERTENSION Status: Chronic (10) Cardiomyopathy Code(s): I42.9 - CARDIOMYOPATHY, UNSPECIFIED Status: Acute (11) Chronic respiratory failure with hypoxia Code(s): J96.11 - CHRONIC RESPIRATORY FAILURE WITH HYPOXIA Status: Acute - Plan Critical limb ischemia left lower extremity: Patient had a thrombectomy performed 10/13/19. Appears to be somewhat better today. Much more warmth to palpation in the calf area down to the ankle. Chronic atrial fibrillation: On heparin drip. Resumed warfarin per cardiovascular surgery. She has good rate control on a diltiazem drip after being tachycardic on initial presentation.. Mechanical mitral valve: Patient requires chronic anticoagulation with warfarin. Currently on heparin drip and warfarin resumed. Cardiomyopathy: Cardiology following. Patient has an ejection fraction that has worsened from her previous echocardiogram. Currently EF is around 20 to 25%. COPD: Stable. No evidence of exacerbation. Discontinued steroids. Chronic hypoxic respiratory failure: Secondary to COPD. Given apparent encephalopathic changes this morning and check an ABG. Assess for hypercapnia. UTI: Growing Citrobacter on her urine culture. Continue Rocephin.
[2019-10-15 11:26] LABS: Actual Bicarbonate (HCO3a) 27.6 mEq/L (22-28); Base Excess (BEa) 3.6 mEq/L (-2.0 to +3.0); CO2 Tension 39.7 mmHg (35.0-45.0); Calcium, Ionized (arterial) 1.06 mmol/L (1.12-1.30); Carboxyhemoglobin (COHb) 0.3 gm% (0.0-3.0); Hemoglobin (Hb) 10.7 g/dL (12.0-16.0); O2 Tension (PaO2), arterial 62.9 mmHg (> 70.0); Potassium - ABG Lab 4.74 mmol/L (3.70-5.30); pH, Arterial 7.46 (7.35-7.45)
[2019-10-15 11:27] LABS: Puncture Site RBA
[2019-10-15 11:28] LABS: ALV-art Gradient 144.155 (0-20)
[2019-10-15] MEDS: Diltiazem 125 MG in Sodium Chloride 0.9% 100 ML IVPB SCH (13:47)
[2019-10-15 16:22] LABS: Hemoglobin 10.1 g/dL (12.0-16.0); Platelet Count 91 thou/uL (130-400)
[2019-10-15] MEDS: Warfarin Sodium 10 MG TAB PO SCH (18:10)
[2019-10-15] MEDS: Morphine 2 MG/ML VIAL SLOW IVP PRN (18:23)
[2019-10-15] MEDS: Pramipexole Di-HCl 0.25 MG TAB PO SCH (21:31)
[2019-10-15] MEDS: Prazosin HCl 1 MG CAP PO SCH (21:31)
[2019-10-15] MEDS: traZODone HCl 50 MG TAB PO SCH (21:31)
[2019-10-15] MEDS: Atorvastatin Calcium 40 MG TAB PO SCH (21:31)
[2019-10-16] MEDS: Heparin 25,000 units/D5W 500 ML IVPB SCH (01:47)
[2019-10-16] MEDS: Diltiazem 125 MG in Sodium Chloride 0.9% 100 ML IVPB SCH ×2 (03:17→16:08)
[2019-10-16] MEDS: Acetaminophen 325 MG TAB PO PRN (04:12)
[2019-10-16] MEDS: Levothyroxine 150 MCG TAB PO SCH (05:39)
[2019-10-16] MEDS: cefTRIAXone\\ROCEPHIN 1 GM in Sodium Chloride 0.9% 100 ML IVPB SCH (07:30)
[2019-10-16] MEDS: Mometasone 200 MCG/Formoterol 5 MCG 120 PUFF INHALER INH SCH ×2 (08:01→19:00)
[2019-10-16] MEDS: Carvedilol 6.25 MG TAB PO SCH ×2 (09:09→17:21)
[2019-10-16] MEDS: Furosemide 40 MG TAB PO SCH (09:10)
[2019-10-16] MEDS: Fish Oil 1,000 MG CAP PO SCH (09:10)
[2019-10-16] MEDS: Calcium Carbonate 600 MG + Vit D TAB PO SCH (09:10)
[2019-10-16] MEDS: Multivitamin W/ Minerals 1 TAB PO SCH (09:14)
[2019-10-16] MEDS: Ferrous Sulfate 325 MG TAB PO SCH ×2 (09:14→17:25)
[2019-10-16] MEDS: Metolazone 2.5 MG TAB PO SCH (09:14)
[2019-10-16] MEDS ORDERED: Bisacodyl 10 MG SUPP PR PRN (09:33)
[2019-10-16] MEDS ORDERED: Docusate 100 MG CAP PO SCH (09:45)
[2019-10-16] MEDS ORDERED: Pepto Bismol Chew TAB PO PRN (13:36)
--- NOTE | 2019-10-16 13:45 | PDOC.HOSPP ---
- Subjective Encounter Date: 10/16/19 Subjective: Reports she is only concerned/worried about the situation with her leg. Otherwise in general she feels okay. She still has no significant sensation in the distal left lower extremity. - Objective Vital Signs & Weight: Vital Signs (12 hours) Temp Pulse Resp BP Pulse Ox 10/16/19 12:00 99 10/16/19 09:09 103/64 10/16/19 08:00 98.4 F 99 10/16/19 07:59 82 18 99 10/16/19 04:00 98.1 F Weight Admit Weight 239 lb 12.8 oz Weight 239 lb 12.8 oz Most Recent Monitor Data Heart Rate from ECG 81 NIBP 150/82 NIBP BP-Mean 104 Respiration from ECG 18 SpO2 100 I&O: 10/15/19 10/16/19 10/17/19 06:59 06:59 06:59 Intake Total 2558 2261 620 Output Total 1200 1300 Balance 1358 961 620 Result Diagrams: 10/15/19 16:14 10/14/19 06:23 Hospitalist ROS - Medication Medications: Active Medications Generic Name Dose Route Start Last Admin Trade Name Freq PRN Reason Stop Dose Admin Acetaminophen 650 mg 10/14/19 02:56 10/16/19 04:12 Tylenol PO 650 mg Q4H PRN Administration Headache/Fever or Pain Albuterol/Ipratropium 3 ml 10/13/19 07:00 10/16/19 07:59 Duoneb NEB 3 ml [id number] LISA Administration Atorvastatin Calcium 40 mg 10/13/19 21:00 10/15/19 21:31 Lipitor PO 40 mg HS LISA Administration Calcium/Vitamin D 1 tab 10/13/19 09:00 10/16/19 09:10 Caltrate 600 + Vit D PO 1 tab DAILY LISA Administration Carvedilol 6.25 mg 10/13/19 08:00 10/16/19 09:09 Coreg PO 6.25 mg BID-WM LISA Administration Ferrous Sulfate 325 mg 10/13/19 09:00 10/16/19 09:14 Feosol PO Not Given 0900,1700 LISA Fish Oil 1,000 mg 10/13/19 09:00 10/16/19 09:10 Fish Oil PO 1,000 mg DAILY LISA Administration Furosemide 80 mg 10/13/19 09:00 10/16/19 09:10 Lasix PO 80 mg DAILY LISA Administration Diltiazem HCl 125 mg/ Sodium 125 mls @ 10 mls/hr 10/13/19 02:00 10/16/19 03: 17 Chloride IVPB 125 mls INF LISA Administration Protocol 10 MG/HR Ceftriaxone Sodium 1 gm/ 100 mls @ 200 mls/hr 10/13/19 07:00 10/16/19 07:30 Sodium Chloride IVPB 100 mls Q24HR LISA Administration Heparin Sodium/Dextrose 500 mls @ 0 mls/hr 10/13/19 15:45 10/16/19 01:47 Heparin 25,000 Units/D5w IVPB 500 mls INF LISA Administration Protocol Per Protocol Sodium Chloride 1,000 mls @ 0 mls/hr 10/13/19 18:15 10/15/19 18:41 Normal Saline 0.9% IV 1,000 mls .Q0M LISA Administration TKO Iron/Minerals/Multivitamins 1 tab 10/13/19 09:00 10/16/19 09:14 Theragran M PO Not Given DAILY LISA Isosorbide Mononitrate 30 mg 10/13/19 09:00 10/16/19 09:10 Imdur Er PO 30 mg DAILY LISA Administration Levothyroxine Sodium 150 mcg 10/13/19 06:00 10/16/19 05:39 Synthroid PO 150 mcg 0600 LISA Administration Metolazone 2.5 mg 10/13/19 09:00 10/16/19 09:14 Zaroxolyn PO 2.5 mg DAILY LISA Administration Mometasone Furoate/Formoterol Fumar 2 puff 10/14/19 18:30 10/16/19 08:01 Dulera 200 Mcg/5 Mcg Inhaler INH 2 puff BID-RT LISA Administration Morphine Sulfate 2 mg 10/13/19 18:05 10/15/19 18:23 Morphine SLOW IVP 2 mg Q2H PRN Administration Pain Pantoprazole Sodium 40 mg 10/13/19 09:00 10/16/19 09:10 Protonix PO 40 mg DAILY LISA Administration Pramipexole Dihydrochloride 0.5 mg 10/13/19 21:00 10/15/19 21:31 Mirapex PO 0.5 mg HS LISA Administration Prazosin HCl 1 mg 10/13/19 21:00 10/15/19 21:31 Minipress PO 1 mg HS LISA Administration Quetiapine Fumarate 300 mg 10/13/19 21:00 10/15/19 21:31 Seroquel PO 300 mg HS LISA Administration Sertraline HCl 100 mg 10/13/19 09:00 10/16/19 09:10 Zoloft PO 100 mg DAILY LISA Administration Trazodone HCl 50 mg 10/13/19 21:00 10/15/19 21:31 Desyrel PO 50 mg HS LISA Administration Warfarin Sodium 10 mg 10/15/19 17:00 10/15/19 18:10 Coumadin PO 10/16/19 17:01 10 mg 1700 LISA Administration - Exam General Appearance: NAD, awake alert General - other findings: Morbidly obese Heart: no murmur, no gallops, no rubs, irregular Respiratory: CTAB, no wheezes, no rales, no ronchi, normal chest expansion, no tachypnea, normal percussion Respiratory - other findings: Nasal cannula oxygen Gastrointestinal: soft, non-tender, non-distended, normal bowel sounds, no palpable masses, no hepatomegaly, no splenomegaly, no bruit Extremities - other findings: L LE with warmth through the ankle. 2-second capillary refill in the foot. Neurological - other findings: Persistent anesthesia of the left foot and lower calf Musculoskeletal: generalized weakness Hosp A/P (1) Critical ischemia of lower extremity Code(s): I99.8 - OTHER DISORDER OF CIRCULATORY SYSTEM Status: Acute (2) Thrombosis of left femoral artery Code(s): I74.3 - EMBOLISM AND THROMBOSIS OF ARTERIES OF THE LOWER EXTREMITIES Status: Acute (3) CAD (coronary artery disease) Code(s): I25.10 - ATHSCL HEART DISEASE OF [place] CORONARY ARTERY W/O ANG PCTRS Status: Chronic Qualifiers: Coronary Disease-Associated Artery/Lesion type: [place] artery [place] vs. transplanted heart: [place] heart Associated angina: without angina Qualified Code(s): I25.10 - Atherosclerotic heart disease of [place] coronary artery without angina pectoris (4) CKD (chronic kidney disease), stage III Code(s): N18.3 - CHRONIC KIDNEY DISEASE, STAGE 3 (MODERATE) Status: Chronic (5) COPD (chronic obstructive pulmonary disease) Status: Chronic Qualifiers: COPD type: chronic bronchitis (6) Chronic a-fib Code(s): I48.20 - CHRONIC ATRIAL FIBRILLATION, UNSPECIFIED Status: Chronic (7) Dyslipidemia Code(s): E78.5 - HYPERLIPIDEMIA, UNSPECIFIED Status: Chronic (8) H/O mitral valve replacement with mechanical valve Code(s): Z95.2 - PRESENCE OF PROSTHETIC HEART VALVE Status: Chronic (9) H/O unilateral nephrectomy Code(s): Z90.5 - ACQUIRED ABSENCE OF KIDNEY Status: Chronic (10) HTN (hypertension) Code(s): I10 - ESSENTIAL (PRIMARY) HYPERTENSION Status: Chronic (11) Cardiomyopathy Code(s): I42.9 - CARDIOMYOPATHY, UNSPECIFIED Status: Acute (12) Chronic respiratory failure with hypoxia Code(s): J96.11 - CHRONIC RESPIRATORY FAILURE WITH HYPOXIA Status: Acute - Plan Critical limb ischemia left lower extremity: Patient had a thrombectomy performed 10/13/19. Appears to be even better today. Much more warmth to palpation in the calf area down to and through the ankle. Still on the heparin drip. Hoping for some recovery of sensation. Chronic atrial fibrillation: On heparin drip. Resumed warfarin per cardiovascular surgery. Check INR in the morning. She has good rate control on a diltiazem drip after being tachycardic on initial presentation. Cardiology following. Mechanical mitral valve: Patient requires chronic anticoagulation with warfarin. Currently on heparin drip and warfarin resumed. Cardiomyopathy: Cardiology following. Patient has an ejection fraction that has worsened from her previous echocardiogram. Currently EF is around 20 to 25%. COPD: Stable. No evidence of exacerbation. Discontinued steroids. Chronic hypoxic respiratory failure: Secondary to COPD. ABG yesterday look good. DVT: DVT present in the left lower extremity. Patient was off her warfarin for 2 weeks prior to presentation. Currently back on heparin and warfarin. UTI: Growing Citrobacter on her urine culture. Continue Rocephin.
[2019-10-16] MEDS: Morphine 2 MG/ML VIAL SLOW IVP PRN (16:17)
[2019-10-16] MEDS ORDERED: Warfarin Sodium 10 MG TAB PO SCH (17:00)
[2019-10-16] MEDS: Nystatin Powder 15 GM BOT TOP PRN (17:24)
[2019-10-16] MEDS: Warfarin Sodium 10 MG TAB PO SCH (17:51)
[2019-10-16] MEDS: traZODone HCl 50 MG TAB PO SCH (21:42)
[2019-10-16] MEDS: Pramipexole Di-HCl 0.25 MG TAB PO SCH (21:42)
[2019-10-16] MEDS: Atorvastatin Calcium 40 MG TAB PO SCH (21:42)
[2019-10-16] MEDS: Docusate 100 MG CAP PO SCH (21:43)
[2019-10-16] MEDS: Prazosin HCl 1 MG CAP PO SCH (21:43)
[2019-10-17] MEDS: Heparin 25,000 units/D5W 500 ML IVPB SCH (03:08)
[2019-10-17 04:56] LABS: INR-International Normal Ratio 2.9; Prothrombin Time 30.3 sec (12.0-14.7)
[2019-10-17 04:58] LABS: PTT 98.9 sec (22.9-36.1)
[2019-10-17 05:07] LABS: Anion Gap 14 mmol/L (10-20); BUN (Urea Nitrogen) 51 mg/dL (9.8-20.1); Calc. Creatinine Clearance 35 mL/min (70-130); Calcium 8.7 mg/dL (7.8-10.44); Carbon Dioxide 29 mmol/L (23-31); Chloride 90 mmol/L (98-107); Estimated GFR-MDRD 21; Glucose 133 mg/dL (83-110); Potassium 3.8 mmol/L (3.5-5.1); Sodium 129 mmol/L (136-145)
[2019-10-17 05:13] LABS: Band 11 % (5-11); Hemoglobin 10.1 g/dL (12.0-16.0); Lymphocytes 4 % (21-51); MDiff Complete? YES; Mean Corpuscular HGB CONC 32.2 g/dL (32.0-36.0); Mean Corpuscular Volume 93.1 fL (78.0-98.0); Mean Platelet Volume 10.3 fL (7.4-10.4); Metamyelocyte 1 % (0-0); Monocytes 3 % (0-10); Neutrophil 79 % (42-75); Platelet Count 121 thou/uL (130-400); RBC Distribution Width 18.2 % (11.5-14.5); Reactive Lymphocytes 2 % (0-10); Red Blood Cell (RBC) Count 3.37 mill/uL (4.20-5.40); White Blood Cell (WBC) Count 18.6 thou/uL (4.8-10.8)
[2019-10-17] MEDS: Levothyroxine 150 MCG TAB PO SCH (05:33)
[2019-10-17] MEDS: Mometasone 200 MCG/Formoterol 5 MCG 120 PUFF INHALER INH SCH ×2 (08:15→18:27)
[2019-10-17] MEDS: cefTRIAXone\\ROCEPHIN 1 GM in Sodium Chloride 0.9% 100 ML IVPB SCH (09:48)
[2019-10-17] MEDS: Sodium Chloride 0.9% 1,000 ML IV SCH ×2 (09:48→20:41)
[2019-10-17] MEDS: Multivitamin W/ Minerals 1 TAB PO SCH (09:50)
[2019-10-17] MEDS: Ferrous Sulfate 325 MG TAB PO SCH ×2 (09:50→16:52)
[2019-10-17] MEDS: Metolazone 2.5 MG TAB PO SCH ×2 (09:50→09:59)
[2019-10-17] MEDS: Fish Oil 1,000 MG CAP PO SCH (09:50)
[2019-10-17] MEDS: Carvedilol 6.25 MG TAB PO SCH ×2 (09:51→16:52)
[2019-10-17] MEDS: Docusate 100 MG CAP PO SCH ×2 (09:51→20:41)
[2019-10-17] MEDS: Calcium Carbonate 600 MG + Vit D TAB PO SCH (09:51)
--- NOTE | 2019-10-17 10:13 | PDOC.HOSPP ---
- Subjective Encounter Date: 10/17/19 (f/u limb ischemia) Encounter Time: 10:11 Subjective: Pt c/o ongoing lower abd pain post-procedure from thrombectomy on Sep. She denies any n/v, last bm was today. Reports her breathing is at baseline and she is on 4L oxygen at home. - Objective Vital Signs & Weight: Vital Signs (12 hours) Temp Pulse Resp BP Pulse Ox 10/17/19 08:23 98.0 F 98 24 H 136/62 94 L 10/17/19 08:08 98 20 10/17/19 04:00 97.9 F 86 20 103/54 L 97 Weight Admit Weight 239 lb 12.8 oz Weight 239 lb 12.8 oz Most Recent Monitor Data Heart Rate from ECG 87 NIBP 112/76 NIBP BP-Mean 88 Respiration from ECG 24 SpO2 99 I&O: 10/16/19 10/17/19 10/18/19 06:59 06:59 06:59 Intake Total 2261 2257 Output Total 1300 3250 Balance 961 -993 Result Diagrams: 10/17/19 04:12 10/17/19 04:12 EKG Reviewed by me: Yes (tele - a fib 80-100's on diltiazem gtt) Hospitalist ROS - Medication Medications: Active Medications Generic Name Dose Route Start Last Admin Trade Name Freq PRN Reason Stop Dose Admin Acetaminophen 650 mg 10/14/19 02:56 10/16/19 04:12 Tylenol PO 650 mg Q4H PRN Administration Headache/Fever or Pain Albuterol/Ipratropium 3 ml 10/13/19 07:00 10/17/19 08:08 Duoneb NEB 3 ml [id number] LISA Administration Atorvastatin Calcium 40 mg 10/13/19 21:00 10/16/19 21:42 Lipitor PO 40 mg HS LISA Administration Bismuth Subsalicylate 1 tab 10/16/19 13:36 10/16/19 14:02 Pepto Bismol PO 1 tab Q2H PRN Administration Diarrhea/Loose Stools Calcium/Vitamin D 1 tab 10/13/19 09:00 10/17/19 09:51 Caltrate 600 + Vit D PO 1 tab DAILY LISA Administration Carvedilol 6.25 mg 10/13/19 08:00 10/17/19 09:51 Coreg PO 6.25 mg BID-WM LISA Administration Docusate Sodium 100 mg 10/16/19 21:00 10/17/19 09:51 Colace PO 100 mg BID LISA Administration Ferrous Sulfate 325 mg 10/13/19 09:00 10/17/19 09:50 Feosol PO 325 mg 0900,1700 LISA Administration Fish Oil 1,000 mg 10/13/19 09:00 10/17/19 09:50 Fish Oil PO 1,000 mg DAILY LISA Administration Ceftriaxone Sodium 1 gm/ 100 mls @ 200 mls/hr 10/13/19 07:00 10/17/19 09:48 Sodium Chloride IVPB 100 mls Q24HR LISA Administration Sodium Chloride 1,000 mls @ 75 mls/hr 10/17/19 08:45 10/17/19 09:48 Normal Saline 0.9% IV 10/19/19 00:44 1,000 mls .[id number] LISA Administration Iron/Minerals/Multivitamins 1 tab 10/13/19 09:00 10/17/19 09:50 Theragran M PO 1 tab DAILY LISA Administration Levothyroxine Sodium 150 mcg 10/13/19 06:00 10/17/19 05:33 Synthroid PO 150 mcg 0600 LISA Administration Mometasone Furoate/Formoterol Fumar 2 puff 10/14/19 18:30 10/17/19 08:15 Dulera 200 Mcg/5 Mcg Inhaler INH 2 puff BID-RT LISA Administration Morphine Sulfate 2 mg 10/13/19 18:05 10/16/19 16:17 Morphine SLOW IVP 2 mg Q2H PRN Administration Pain Nystatin 0 gm 10/15/19 10:56 10/16/19 17:24 Mycostatin Powder TOP 1 applic BID PRN Administration Topical Irritations Pantoprazole Sodium 40 mg 10/13/19 09:00 10/17/19 09:50 Protonix PO 40 mg DAILY LISA Administration Pramipexole Dihydrochloride 0.5 mg 10/13/19 21:00 10/16/19 21:42 Mirapex PO 0.5 mg HS LISA Administration Prazosin HCl 1 mg 10/13/19 21:00 10/16/19 21:43 Minipress PO 1 mg HS LISA Administration Quetiapine Fumarate 300 mg 10/13/19 21:00 10/16/19 21:42 Seroquel PO 300 mg HS LISA Administration Sertraline HCl 100 mg 10/13/19 09:00 10/17/19 09:50 Zoloft PO 100 mg DAILY LISA Administration Trazodone HCl 50 mg 10/13/19 21:00 10/16/19 21:42 Desyrel PO 50 mg HS LISA Administration - Exam General Appearance: NAD Heart: RRR Heart - other findings: mechanical valve Respiratory: no wheezes, no rales, no ronchi Respiratory - other findings: good air movement Gastrointestinal: soft, normal bowel sounds Gastrointestinal - other findings: ttp throughout, abd soft, non-distended, no palpable abnormalities Extremities - other findings: 2+ edema RLE, 3+ edema in LLE with erythema/ duskiness Psychiatric: normal affect Hosp A/P (1) Chronic respiratory failure with hypoxia Code(s): J96.11 - CHRONIC RESPIRATORY FAILURE WITH HYPOXIA Status: Chronic (2) Critical ischemia of lower extremity Code(s): I99.8 - OTHER DISORDER OF CIRCULATORY SYSTEM Status: Acute (3) CHERIE (acute kidney injury) Code(s): N17.9 - ACUTE KIDNEY FAILURE, UNSPECIFIED Status: Acute (4) CAD (coronary artery disease) Code(s): I25.10 - ATHSCL HEART DISEASE OF [place] CORONARY ARTERY W/O ANG PCTRS Status: Chronic Qualifiers: Coronary Disease-Associated Artery/Lesion type: [place] artery [place] vs. transplanted heart: [place] heart Associated angina: without angina Qualified Code(s): I25.10 - Atherosclerotic heart disease of [place] coronary artery without angina pectoris (5) COPD (chronic obstructive pulmonary disease) Status: Chronic Qualifiers: COPD type: chronic bronchitis (6) Dyslipidemia Code(s): E78.5 - HYPERLIPIDEMIA, UNSPECIFIED Status: Chronic (7) HTN (hypertension) Code(s): I10 - ESSENTIAL (PRIMARY) HYPERTENSION Status: Chronic (8) Prosthetic replacement of heart valve Code(s): Z95.2 - PRESENCE OF PROSTHETIC HEART VALVE Status: Chronic (9) Chronic a-fib Code(s): I48.20 - CHRONIC ATRIAL FIBRILLATION, UNSPECIFIED Status: Chronic - Plan Critical limb ischemia s/p thrombectomy with concern by [facility] for worsening per note today - CK over 4000 -> continue IVF - WBC count more elevated today Mechanical valve - therapeutic on coumadin, heparin gtt d/c Atrial fibrillation - rate controlled, diltiazem gtt d/c CHERIE with CKD and hyponatremia - contrast study during this admission to evaluate the occlusion and elevated CK today c/w muscle breakdown in LLE - trend CK daily - check UA - check renal ultrasound - consult Dr. Meng CM - EF 20-25% during this hospitalization which is a decline from previous hospitalizations COPD with chronic resp failure - appears stable DVT LLE - therapeutic on coumadin UTI - Citrobacter - continue Rocephin for now Reviewed changes to care today, addition of Nephrology and IVF for renal function. Discussed with patient that I anticipate a decision to made about her leg in the next 1-2 days by [facility]. post-procedure pain - continue prn pain meds dvt prophy - not indicated gi prophy - on protonix/home med code status full No questions or further needs at end of eval, pt demonstrates understanding and agrees pt at high risk in current condition
--- NOTE | 2019-10-17 10:49 | ULT ---
ULTRASOUND RETROPERITONEUM COMPLETE: (RENAL) DATE: 10/17/2019 HISTORY: 78-year-old female with worsening renal function FINDINGS: Right kidney: Absent. Left kidney: 12.5 x 5 x 6 cm. No hydronephrosis. No solid or cystic renal lesion identified. Urinary bladder: 1340 mL volume. Left ureteral jet visualized. IMPRESSION: 1) absent right kidney. 2) no hydronephrosis of left kidney. 3) urinary bladder distention
[2019-10-17 15:36] LABS: Magnesium 1.5 mg/dL (1.6-2.6); Potassium 3.7 mmol/L (3.5-5.1)
--- NOTE | 2019-10-17 16:09 | CON ---
DATE OF CONSULTATION: SERVICE: Renal Medicine. HISTORY OF PRESENT ILLNESS: Ms. Clemens is a 78-year-old white female, who was initially admitted for left hip area pain. During the workup, where a CT scan of the abdomen and pelvis was done, it showed occlusion of the left common iliac artery. She underwent a left femoral exploration with embolectomy. This was done by Dr. Orellana. We are now being consulted for acute kidney injury. The patient has underlying chronic renal failure previously and has been stable. Admission creatinine was about 1.5; it is currently 2.1. We are currently evaluating the patient for this acute kidney injury on top of her chronic renal failure. REVIEW OF SYSTEMS: No chest pain. No shortness of breath. No nausea. No vomiting. Appetite and energy level are decreased. Positive for joint pains. No nausea. No vomiting. No shortness of breath. No hematochezia. No melena. No hematemesis. MEDICATIONS: Currently on 1. Acetaminophen 650 mg q.4 p.r.n. 2. Atorvastatin 40 mg at bedtime. 3. Bismuth salicylate one tab q.2 p.r.n. 4. Calcium carbonate one tablet daily. 5. Carvedilol 6.25 mg p.o. b.i.d. 6. Ceftriaxone 1 g IV q.24 hours. 7. Docusate 100 mg p.o. b.i.d. 8. Ferrous sulfate 325 mg b.i.d. 9. Fish oil 1000 mg daily. 10. Furosemide 80 mg daily-currently on hold. 11. Heparin by heparin protocol. 12. DuoNeb q.6. 13. Imdur 30 mg daily. 14. Mometasone oral inhaler two puffs b.i.d. 15. Morphine sulfate 2 mg IV q.2 as needed. 16. Nystatin cream b.i.d. 17. Normal saline currently at 75 mL/h. 18. Protonix 40 mg daily. 19. Pramipexole 0.5 mg at bedtime. 20. Sertraline 100 mg p.o. daily. 21. Quetiapine 300 mg p.o. at bedtime. 22. Trazodone 50 mg at bedtime. PAST MEDICAL HISTORY: COPD, peripheral vascular disease, recent occlusion of the left common iliac artery, valvular heart disease, chronic atrial fibrillation, COPD on home O2, chronic renal failure from a presumed hypertensive nephropathy, status post CHF, EF of about 30%, history of depression, hyperlipidemia, anxiety, morbid obesity, coronary artery disease, renal cancer in remission. PAST SURGICAL HISTORY: Recently status post left femoral exploration with embolectomy, status post appendectomy, status post oophorectomy, status post mitral valve replacement, status post bladder suspension, status post right nephrectomy, recently status post left femoral exploration with embolectomy, status post cardiac cath, status post coronary artery stent placement. SOCIAL HISTORY: The patient lives at [facility]. . Three children. Smoked heavily for about at least 20 years. Occasional alcohol. No IV drug abuse. ALLERGIES: CODEINE, SULFA. TRAUMA: None. IMMUNIZATION: Up-to-date. HOSPITALIZATIONS: Please see past medical history. PHYSICAL EXAMINATION: VITAL SIGNS: Blood pressure is 100/58 with a heart rate of 91, respiratory rate 20, O2 saturation 97% on 4 L, and temperature 98.5. GENERAL: The patient is awake, comfortable, obese. SKIN: Adequate turgor. HEENT: She has pinkish conjunctivae. Anicteric sclerae. NECK: No neck mass. No carotid bruits. No JVD. CHEST: No deformities. LUNGS: Decreased breath sounds. HEART: Normal sinus rhythm. Grade 2/6 systolic murmur. No gallops. No rubs. ABDOMEN: Globular. Soft. Nontender. No masses. EXTREMITIES: Positive for trace edema. NEUROLOGICAL: Awake. Oriented to 3 spheres. Moving all extremities. No tremors. No asterixis. No ataxia. LABORATORY DATA: Laboratories of October 17, 2019; white count 18.6, hemoglobin 10.1. Sodium 129, potassium 3.8, chloride 90, carbon dioxide 29, BUN 51, creatinine 2.21, glucose 133, calcium 8.7. CK is 4463. Further review of her creatinine shows the following: October 14, 2019, creatinine 1.5; October 13, 2019, 1.32; October 12, 2019, 1.57. Renal ultrasound of October 17, 2019, shows absent right kidney; left kidney, no hydronephrosis, no bladder distention. Urinalysis pending. ASSESSMENT AND PLAN: 1. Acute kidney injury, consider hemodynamically-mediated renal dysfunction. The patient has been on Lasix at 80 mg p.o. daily for the last several days. My feeling is that this is all a prerenal azotemia. Agree with holding off the Lasix. She has also been started with normal saline at 75 mL/hour. There is no indication for any emergent hemodialysis with this patient. 2. Mild hyponatremia. Heparin considered for the possibility of hypovolemic hyponatremia. Continue normal saline at 75 mL an hour. 3. Peripheral vascular disease-recent occlusion left common iliac artery-the patient is status post femoral exploration with embolectomy. Overall agree with current management. Recheck CBC and basic metabolic in a.m. Job ID: [id number]
[2019-10-17] MEDS ORDERED: Magnesium Oxide 400 MG TAB PO SCH (16:15)
--- NOTE | 2019-10-17 16:17 | PDOC.EVN ---
Event Note - Event Note Event Note: Informed by RN that pt had 4 beats of VT. Checked mag level (1.5) and potassium (3.7), and reviewed chart with sulfa allergy (pt reports severe itching in the past). Will order oral magnesium for replacement - d/w patient that we will try this first and if any further VT or if magnesium remains low tomorrow then will need to order IV. Hold on additional potassium given worsening renal function today and it's in the normal range. no questions or further needs at end of conversation, reviewed plan with RN as well.
[2019-10-17 16:20] LABS: Bilirubin Negative (Negative); Blood, Urine 3+ (Negative); Clarity Clear (Clear); Glucose, Urine (Dipstick) Normal (Negative); Ketone, Urine Negative (Negative); Leukocyte 500 Leu/uL (Negative); Nitrite Negative (Negative); Protein, Urine (Dipstick) 50 mg/dL (Neg-Trace); RBC/HPF 0-3 HPF (0-3); Squamous Epithelial 0-3 HPF (0-3); Urobilinogen Normal mg/dL (Less than 2)
[2019-10-17 16:26] LABS: Bacteria/HPF None Seen HPF (None Seen)
[2019-10-17] MEDS ORDERED: Warfarin Sodium 5 MG TAB PO SCH (17:00)
[2019-10-17] MEDS: Atorvastatin Calcium 40 MG TAB PO SCH (20:40)
[2019-10-17] MEDS: traZODone HCl 50 MG TAB PO SCH (20:40)
[2019-10-17] MEDS: Pramipexole Di-HCl 0.25 MG TAB PO SCH (20:41)
[2019-10-17] MEDS: Prazosin HCl 1 MG CAP PO SCH (20:41)
[2019-10-18 04:56] LABS: Anion Gap 16 mmol/L (10-20); BUN (Urea Nitrogen) 45 mg/dL (9.8-20.1); Calc. Creatinine Clearance 41 mL/min (70-130); Calcium 8.4 mg/dL (7.8-10.44); Carbon Dioxide 27 mmol/L (23-31); Chloride 91 mmol/L (98-107); Estimated GFR-MDRD 26; Glucose 114 mg/dL (83-110); Magnesium 1.6 mg/dL (1.6-2.6); Potassium 3.6 mmol/L (3.5-5.1); Sodium 130 mmol/L (136-145)
[2019-10-18 05:07] LABS: Band 5 % (5-11); Hemoglobin 9.5 g/dL (12.0-16.0); Hypochromia SLIGHT = 6-15 cells (100X) (0-5/hpf); Lymphocytes 5 % (21-51); MDiff Complete? YES; Mean Corpuscular HGB CONC 30.9 g/dL (32.0-36.0); Mean Corpuscular Hemoglobin 29.3 pg (27.0-31.0); Mean Corpuscular Volume 94.8 fL (78.0-98.0); Mean Platelet Volume 10.4 fL (7.4-10.4); Monocytes 6 % (0-10); Neutrophil 84 % (42-75); Platelet Count 124 thou/uL (130-400); Platelet Morphology Comment Appears Adequate; RBC Distribution Width 18.3 % (11.5-14.5); Red Blood Cell (RBC) Count 3.24 mill/uL (4.20-5.40)
[2019-10-18 05:08] LABS: CK (CPK) 4180 U/L (29-168)
[2019-10-18] MEDS: Levothyroxine 150 MCG TAB PO SCH (05:11)
[2019-10-18] MEDS: cefTRIAXone\\ROCEPHIN 1 GM in Sodium Chloride 0.9% 100 ML IVPB SCH (06:03)
[2019-10-18] MEDS: Sodium Chloride 0.9% 1,000 ML IV SCH (06:03)
[2019-10-18] MEDS ORDERED: Sodium Chloride 0.9% 1,000 ML IV SCH (06:24)
[2019-10-18 06:58] LABS: Prothrombin Time 43.3 sec (12.0-14.7)
[2019-10-18 07:17] LABS: INR-International Normal Ratio 4.6
[2019-10-18] MEDS: Mometasone 200 MCG/Formoterol 5 MCG 120 PUFF INHALER INH SCH ×2 (07:30→19:06)
--- NOTE | 2019-10-18 07:48 | PDOC.HOSPP ---
- Subjective Encounter Date: 10/18/19 Encounter Time: 14:30 Subjective: Patient back from left AKA, complaining of very thirsty, otherwise feeling ok. - Objective Vital Signs & Weight: Vital Signs (12 hours) Temp Pulse Resp BP Pulse Ox 10/18/19 07:33 98.2 F 93 20 150/66 H 96 10/18/19 07:30 86 14 10/18/19 03:31 98.8 F 92 18 125/59 L 97 10/17/19 20:59 94 L Weight Admit Weight 239 lb 12.8 oz Weight 239 lb 12.8 oz Most Recent Monitor Data Heart Rate from ECG 87 NIBP 112/76 NIBP BP-Mean 88 Respiration from ECG 24 SpO2 99 I&O: 10/17/19 10/18/19 10/19/19 06:59 06:59 06:59 Intake Total 2257 2720 Output Total 3250 1500 Balance -993 1220 Result Diagrams: 10/18/19 03:57 10/18/19 03:57 Hospitalist ROS - Review of Systems Constitutional: denies: fever, chills Respiratory: denies: cough, shortness of breath Cardiovascular: denies: chest pain, palpitations Gastrointestinal: denies: nausea, vomiting, abdominal pain - Medication Medications: Active Medications Generic Name Dose Route Start Last Admin Trade Name Freq PRN Reason Stop Dose Admin Acetaminophen 650 mg 10/14/19 02:56 10/16/19 04:12 Tylenol PO 650 mg Q4H PRN Administration Headache/Fever or Pain Albuterol/Ipratropium 3 ml 10/13/19 07:00 10/18/19 07:30 Duoneb NEB 3 ml [id number] LISA Administration Atorvastatin Calcium 40 mg 10/13/19 21:00 10/17/19 20:40 Lipitor PO 40 mg HS LISA Administration Bismuth Subsalicylate 1 tab 10/16/19 13:36 10/16/19 14:02 Pepto Bismol PO 1 tab Q2H PRN Administration Diarrhea/Loose Stools Calcium/Vitamin D 1 tab 10/13/19 09:00 10/17/19 09:51 Caltrate 600 + Vit D PO 1 tab DAILY LISA Administration Carvedilol 6.25 mg 10/13/19 08:00 10/17/19 16:52 Coreg PO 6.25 mg BID-WM LISA Administration Docusate Sodium 100 mg 10/16/19 21:00 10/17/19 20:41 Colace PO 100 mg BID LISA Administration Ferrous Sulfate 325 mg 10/13/19 09:00 10/17/19 16:52 Feosol PO Not Given 0900,1700 LISA Fish Oil 1,000 mg 10/13/19 09:00 10/17/19 09:50 Fish Oil PO 1,000 mg DAILY LISA Administration Ceftriaxone Sodium 1 gm/ 100 mls @ 200 mls/hr 10/13/19 07:00 10/18/19 06:03 Sodium Chloride IVPB 100 mls Q24HR LISA Administration Iron/Minerals/Multivitamins 1 tab 10/13/19 09:00 10/17/19 09:50 Theragran M PO 1 tab DAILY LISA Administration Levothyroxine Sodium 150 mcg 10/13/19 06:00 10/18/19 05:11 Synthroid PO 150 mcg 0600 LISA Administration Mometasone Furoate/Formoterol Fumar 2 puff 10/14/19 18:30 10/18/19 07:30 Dulera 200 Mcg/5 Mcg Inhaler INH 2 puff BID-RT LISA Administration Morphine Sulfate 2 mg 10/13/19 18:05 10/16/19 16:17 Morphine SLOW IVP 2 mg Q2H PRN Administration Pain Nystatin 0 gm 10/15/19 10:56 10/16/19 17:24 Mycostatin Powder TOP 1 applic BID PRN Administration Topical Irritations Pantoprazole Sodium 40 mg 10/13/19 09:00 10/17/19 09:50 Protonix PO 40 mg DAILY LISA Administration Pramipexole Dihydrochloride 0.5 mg 10/13/19 21:00 10/17/19 20:41 Mirapex PO 0.5 mg HS LISA Administration Prazosin HCl 1 mg 10/13/19 21:00 10/17/19 20:41 Minipress PO 1 mg HS LISA Administration Quetiapine Fumarate 300 mg 10/13/19 21:00 10/17/19 20:40 Seroquel PO 300 mg HS LISA Administration Sertraline HCl 100 mg 10/13/19 09:00 10/17/19 09:50 Zoloft PO 100 mg DAILY LISA Administration Trazodone HCl 50 mg 10/13/19 21:00 10/17/19 20:40 Desyrel PO 50 mg HS LISA Administration - Exam General Appearance: NAD, awake alert ENT: moist mucosa Heart: no murmur, no gallops, no rubs, irregular Respiratory: CTAB, no wheezes, no rales, no ronchi Gastrointestinal: soft, non-tender, non-distended, normal bowel sounds Extremities - other findings: left AKA with dressing in place, drain with small amount blood Psychiatric: normal affect, normal behavior Hosp A/P (1) Critical ischemia of lower extremity Code(s): I99.8 - OTHER DISORDER OF CIRCULATORY SYSTEM Status: Acute (2) Embolism of left iliac artery Code(s): I74.5 - EMBOLISM AND THROMBOSIS OF ILIAC ARTERY Status: Acute (3) Supratherapeutic INR Code(s): R79.1 - ABNORMAL COAGULATION PROFILE Status: Acute (4) Chronic respiratory failure with hypoxia Code(s): J96.11 - CHRONIC RESPIRATORY FAILURE WITH HYPOXIA Status: Chronic (5) COPD (chronic obstructive pulmonary disease) Status: Chronic Qualifiers: COPD type: chronic bronchitis (6) CHERIE (acute kidney injury) Code(s): N17.9 - ACUTE KIDNEY FAILURE, UNSPECIFIED Status: Acute (7) Cardiomyopathy Code(s): I42.9 - CARDIOMYOPATHY, UNSPECIFIED Status: Chronic (8) CAD (coronary artery disease) Code(s): I25.10 - ATHSCL HEART DISEASE OF [place] CORONARY ARTERY W/O ANG PCTRS Status: Chronic Qualifiers: Coronary Disease-Associated Artery/Lesion type: [place] artery [place] vs. transplanted heart: [place] heart Associated angina: without angina Qualified Code(s): I25.10 - Atherosclerotic heart disease of [place] coronary artery without angina pectoris (9) CKD (chronic kidney disease), stage III Code(s): N18.3 - CHRONIC KIDNEY DISEASE, STAGE 3 (MODERATE) Status: Chronic (10) Chronic a-fib Code(s): I48.20 - CHRONIC ATRIAL FIBRILLATION, UNSPECIFIED Status: Chronic (11) Dyslipidemia Code(s): E78.5 - HYPERLIPIDEMIA, UNSPECIFIED Status: Chronic (12) H/O mitral valve replacement with mechanical valve Code(s): Z95.2 - PRESENCE OF PROSTHETIC HEART VALVE Status: Chronic (13) H/O unilateral nephrectomy Code(s): Z90.5 - ACQUIRED ABSENCE OF KIDNEY Status: Chronic (14) HTN (hypertension) Code(s): I10 - ESSENTIAL (PRIMARY) HYPERTENSION Status: Chronic - Plan Critical limb ischemia s/p thrombectomy with concern by CVS for worsening- now s /p left AKA - CK over 4000 -> continue IVF - WBC count continues to climb, on Rocephin day #6 Mechanical valve - last dose Coumadin on 10/15, supratherapeutic today at 4.6, FFP ordered by Dr. Orellana prior to surgery Atrial fibrillation - rate controlled, diltiazem gtt d/c Ventricular tachycardia 4 beats yesterday, magnesium replaced orally, climbing up to 1.6 today CHERIE with CKD and hyponatremia - contrast study during this admission to evaluate the occlusion and elevated CK today c/w muscle breakdown in LLE - trend CK daily - check UA - check renal ultrasound - consulted Dr. Meng - Creatinine improved today 2.0 --> 1.8 CM - EF 20-25% during this hospitalization which is a decline from previous hospitalizations COPD with chronic resp failure - appears stable DVT LLE - therapeutic on coumadin UTI - Citrobacter - continue Rocephin for now, day #6 Reviewed changes to care today, addition of Nephrology and IVF for renal function. Discussed with patient that I anticipate a decision to made about her leg in the next 1-2 days by CVS. post-procedure pain - continue prn pain meds dvt prophy - on Coumadin gi prophy - on protonix/home med code status full
[2019-10-18] MEDS: Magnesium Oxide 400 MG TAB PO SCH ×2 (08:17→20:50)
[2019-10-18] MEDS: Calcium Carbonate 600 MG + Vit D TAB PO SCH (08:17)
[2019-10-18] MEDS: Docusate 100 MG CAP PO SCH ×2 (08:17→20:51)
[2019-10-18] MEDS: Multivitamin W/ Minerals 1 TAB PO SCH (08:17)
[2019-10-18] MEDS: Carvedilol 6.25 MG TAB PO SCH ×2 (08:17→16:02)
[2019-10-18] MEDS: Fish Oil 1,000 MG CAP PO SCH (08:17)
[2019-10-18] MEDS: Ferrous Sulfate 325 MG TAB PO SCH ×2 (08:18→16:02)
--- NOTE | 2019-10-18 08:18 | RAD ---
PORTABLE CHEST: HISTORY: Shortness of breath. COMPARISON: 10/12/2019. FINDINGS: Cardiomegaly with postop sternotomy change. No evidence of vascular congestion. A patchy density in the left lung base suggests mild atelectasis. IMPRESSION: Probable mild atelectasis in the left lung base. Tiny effusions cannot be excluded. Lungs otherwise appear clear. POS: [facility]
--- NOTE | 2019-10-18 09:31 | PRG ---
DATE OF SERVICE: 10/18/2019 SUBJECTIVE: Ms. Clemens is a 78-year-old white female, who was seen by the Renal Service for acute kidney injury on top of her chronic renal failure. I felt that she had a superimposed hemodynamically-mediated renal dysfunction. In addition, normal saline has been started with the patient. Please note, the patient also had femoral exploration with embolectomy for recent occlusion of the left common iliac artery. This morning, she voices no new complaints. OBJECTIVE: VITAL SIGNS: Blood pressure 150/66, heart rate 93, respiratory rate 20, temperature 98.2, O2 saturation 96%. GENERAL: The patient is awake, alert, comfortable, not in distress. SKIN: Adequate turgor. HEENT: She has pinkish conjunctivae. Anicteric sclerae. NECK: No neck mass. No carotid bruits. No JVD. CHEST: No deformities. LUNGS: Clear breath sounds. No wheezing. No crackles. HEART: Normal sinus rhythm. No murmur. No gallops. No rubs. ABDOMEN: Globular, soft, nontender. No masses. EXTREMITIES: Trace edema. MEDICATIONS: Medications of October 18, 2019, reviewed. LABORATORY DATA: Laboratories of October 18, 2019; white count 20, hemoglobin 9.5. Sodium 130, potassium 3.6, chloride 91, carbon dioxide 27, BUN 45, creatinine 1.89, glucose 114, calcium 8.4. CK - elevated. ASSESSMENT AND PLAN: 1. Acute kidney injury - superimposed hemodynamically-mediated renal dysfunction. Improving renal function with IV hydration. 2. The patient has also been discontinued from any diuretics at the present time. 3. No indication for any dialytic intervention. Continue supportive care. 4. Peripheral vascular disease - status post femoral embolectomy. 5. Recheck CBC and base met in a.m. Job ID: [id number] [facility]
[2019-10-18] MEDS ORDERED: Ketorolac Tromethamine 30 MG/ML VIAL ONE (10:25)
[2019-10-18] MEDS ORDERED: Glycopyrrolate 0.2 MG/ML 5 ML SYRINGE ONE (10:25)
[2019-10-18] MEDS ORDERED: Ondansetron PF 4 MG/2 ML Vial ONE (10:25)
[2019-10-18] MEDS ORDERED: Lidocaine 1% PF 5 ML VIAL ONE (10:25)
[2019-10-18] MEDS ORDERED: Rocuronium Bromide 10 MG/ML (10ML VIAL) ONE (10:25)
[2019-10-18] MEDS ORDERED: PROPOFOL 200 MG/20 ML VIAL ONE (10:25)
[2019-10-18] MEDS ORDERED: Dexamethasone 20 MG/5 ML VIAL ONE (10:25)
[2019-10-18] MEDS ORDERED: Fentanyl 100 MCG/2 ML VIAL ONE (11:03)
[2019-10-18] MEDS ORDERED: Ondansetron HCl/PF 4 MG/2 ML Vial IVP PRN (11:40)
[2019-10-18] MEDS ORDERED: Fentanyl 100 MCG/2 ML VIAL SLOW IVP PRN ×2 (13:09)
--- NOTE | 2019-10-18 16:01 | OP ---
DATE OF PROCEDURE: 10/18/2019 PREOPERATIVE DIAGNOSIS: Gangrene of the left lower extremity. POSTOPERATIVE DIAGNOSES: Gangrene of the left lower extremity. PROCEDURE PERFORMED: Left above-knee amputation. ANESTHESIA: General endotracheal. ESTIMATED BLOOD LOSS: Less than 100. DRAINS: A 19-Thai Randall drain. SPECIMEN: Lower extremity. DESCRIPTION OF PROCEDURE: After consent was obtained, the patient was brought to the operating room and placed in supine position on the operating table. Appropriate central line and monitors were placed and general endotracheal anesthesia was induced. Left lower extremity was prepped and draped in usual sterile fashion. The below-knee area that we would use for a posterior flap-type incision was explored and the muscle was white and there was little or no blood flow. We abandoned the below-knee amputation plan and proceed with an above knee fish-mouth amputation. Skin incision was made. Musculature was divided with electrocautery. The vastus medialis and hamstrings were all viable. The sartorius was debrided. The popliteal artery and vein were divided between ties. The femur was divided with a Gigli saw. Wound was copiously irrigated and then closed in multiple layers. Skin clips were placed. Sterile dressing was then applied. A 19-Thai Randall drain had been placed in the subcutaneous tissue layer. The patient was transferred to the recovery room in stable condition. Job ID: [id number]
[2019-10-18] MEDS: traMADol HCl 50 MG TAB PO PRN ×2 (16:02→20:52)
[2019-10-18] MEDS: Morphine 2 MG/ML VIAL SLOW IVP PRN (18:09)
[2019-10-18] MEDS: Pramipexole Di-HCl 0.25 MG TAB PO SCH (20:49)
[2019-10-18] MEDS: Atorvastatin Calcium 40 MG TAB PO SCH (20:51)
[2019-10-18] MEDS: Prazosin HCl 1 MG CAP PO SCH (20:53)
[2019-10-18] MEDS: traZODone HCl 50 MG TAB PO SCH (21:08)
[2019-10-19 04:38] LABS: #Lymphocytes 0.5 thou/uL (1.20-3.40); #Monocytes 0.6 thou/uL (0.11-0.59); #Neutrophils 12.2 thou/uL (1.40-6.50); %Eosinophils 0.2 % (0.0-10.0); %Monocytes 4.5 % (0.0-10.0); %Neutrophils 91.3 % (42.0-75.0); Hemoglobin 8.9 g/dL (12.0-16.0); Mean Corpuscular HGB CONC 31.2 g/dL (32.0-36.0); Mean Corpuscular Hemoglobin 29.2 pg (27.0-31.0); Mean Corpuscular Volume 93.5 fL (78.0-98.0); Mean Platelet Volume 10.1 fL (7.4-10.4); Platelet Count 133 thou/uL (130-400); RBC Distribution Width 17.7 % (11.5-14.5); Red Blood Cell (RBC) Count 3.06 mill/uL (4.20-5.40); White Blood Cell (WBC) Count 13.4 thou/uL (4.8-10.8)
[2019-10-19 04:46] LABS: INR-International Normal Ratio 2.8
[2019-10-19 05:15] LABS: Anion Gap 16 mmol/L (10-20); BUN (Urea Nitrogen) 50 mg/dL (9.8-20.1); Calc. Creatinine Clearance 40 mL/min (70-130); Calcium 8.9 mg/dL (7.8-10.44); Carbon Dioxide 26 mmol/L (23-31); Chloride 93 mmol/L (98-107); Estimated GFR-MDRD 25; Glucose 161 mg/dL (83-110); Magnesium 1.9 mg/dL (1.6-2.6); Sodium 131 mmol/L (136-145)
[2019-10-19] MEDS: Morphine 2 MG/ML VIAL SLOW IVP PRN ×3 (05:19→20:03)
[2019-10-19] MEDS: Levothyroxine 150 MCG TAB PO SCH (05:19)
[2019-10-19] MEDS: cefTRIAXone\\ROCEPHIN 1 GM in Sodium Chloride 0.9% 100 ML IVPB SCH (05:20)
[2019-10-19] MEDS: Mometasone 200 MCG/Formoterol 5 MCG 120 PUFF INHALER INH SCH ×2 (07:13→19:05)
[2019-10-19] MEDS: Carvedilol 6.25 MG TAB PO SCH ×2 (07:33→18:18)
[2019-10-19] MEDS: Docusate 100 MG CAP PO SCH ×2 (07:34→20:04)
[2019-10-19] MEDS: Ferrous Sulfate 325 MG TAB PO SCH ×3 (07:34→16:36)
[2019-10-19] MEDS: Multivitamin W/ Minerals 1 TAB PO SCH (07:34)
[2019-10-19] MEDS: Calcium Carbonate 600 MG + Vit D TAB PO SCH (07:34)
[2019-10-19] MEDS: Fish Oil 1,000 MG CAP PO SCH (07:34)
[2019-10-19] MEDS: Magnesium Oxide 400 MG TAB PO SCH ×2 (07:34→20:04)
--- NOTE | 2019-10-19 07:41 | PDOC.HOSPP ---
- Subjective Encounter Date: 10/19/19 Encounter Time: 10:00 Subjective: Patient reports pain from hip and amputation site well controlled. Has had some intermittent niggling cough over the past 6 weeks that had resolved but came back yesterday after surgery. No other complaints. - Objective Vital Signs & Weight: Vital Signs (12 hours) Temp Pulse Resp BP BP Pulse Ox 10/19/19 07:33 112/58 L 10/19/19 07:31 97.9 F 88 18 112/58 L 97 10/19/19 07:11 87 18 96 10/19/19 03:05 97.9 F 86 19 133/64 92 L 10/19/19 00:57 95 Weight Admit Weight 239 lb 12.8 oz Weight 239 lb 12.8 oz Most Recent Monitor Data Heart Rate from ECG 87 NIBP 112/76 NIBP BP-Mean 88 Respiration from ECG 24 SpO2 99 I&O: 10/18/19 10/19/19 10/20/19 06:59 06:59 06:59 Intake Total 2720 1380 Output Total 1500 445 Balance 1220 935 Result Diagrams: 10/19/19 04:08 10/19/19 04:08 Hospitalist ROS - Review of Systems Constitutional: denies: fever, chills Respiratory: reports: cough, dry. denies: shortness of breath Cardiovascular: denies: chest pain, palpitations Gastrointestinal: denies: nausea, vomiting, abdominal pain - Medication Medications: Active Medications Generic Name Dose Route Start Last Admin Trade Name Freq PRN Reason Stop Dose Admin Acetaminophen 650 mg 10/14/19 02:56 10/16/19 04:12 Tylenol PO 650 mg Q4H PRN Administration Headache/Fever or Pain Albuterol/Ipratropium 3 ml 10/13/19 07:00 10/19/19 07:11 Duoneb NEB 3 ml [id number] LISA Administration Atorvastatin Calcium 40 mg 10/13/19 21:00 10/18/19 20:51 Lipitor PO 40 mg HS LISA Administration Bismuth Subsalicylate 1 tab 10/16/19 13:36 10/16/19 14:02 Pepto Bismol PO 1 tab Q2H PRN Administration Diarrhea/Loose Stools Calcium/Vitamin D 1 tab 10/13/19 09:00 10/19/19 07:34 Caltrate 600 + Vit D PO 1 tab DAILY LISA Administration Carvedilol 6.25 mg 10/13/19 08:00 10/19/19 07:33 Coreg PO 6.25 mg BID-WM LISA Administration Docusate Sodium 100 mg 10/16/19 21:00 10/19/19 07:34 Colace PO 100 mg BID LISA Administration Ferrous Sulfate 325 mg 10/13/19 09:00 10/19/19 07:34 Feosol PO 325 mg 0900,1700 LISA Administration Fish Oil 1,000 mg 10/13/19 09:00 10/19/19 07:34 Fish Oil PO 1,000 mg DAILY LISA Administration Ceftriaxone Sodium 1 gm/ 100 mls @ 200 mls/hr 10/13/19 07:00 10/19/19 05:20 Sodium Chloride IVPB 100 mls Q24HR LISA Administration Iron/Minerals/Multivitamins 1 tab 10/13/19 09:00 10/19/19 07:34 Theragran M PO 1 tab DAILY LISA Administration Isosorbide Mononitrate 30 mg 10/18/19 09:00 10/19/19 07:34 Imdur Er PO 30 mg DAILY LISA Administration Levothyroxine Sodium 150 mcg 10/13/19 06:00 10/19/19 05:19 Synthroid PO 150 mcg 0600 LISA Administration Magnesium Oxide 400 mg 10/18/19 09:00 10/19/19 07:34 Magnesium Oxide PO 400 mg BID LISA Administration Mometasone Furoate/Formoterol Fumar 2 puff 10/14/19 18:30 10/19/19 07:13 Dulera 200 Mcg/5 Mcg Inhaler INH 2 puff BID-RT LISA Administration Morphine Sulfate 2 mg 10/13/19 18:05 10/19/19 05:19 Morphine SLOW IVP 2 mg Q2H PRN Administration Pain Nystatin 0 gm 10/15/19 10:56 10/16/19 17:24 Mycostatin Powder TOP 1 applic BID PRN Administration Topical Irritations Pantoprazole Sodium 40 mg 10/13/19 09:00 10/19/19 07:34 Protonix PO 40 mg DAILY LISA Administration Pramipexole Dihydrochloride 0.5 mg 10/13/19 21:00 10/18/19 20:49 Mirapex PO 0.5 mg HS LISA Administration Prazosin HCl 1 mg 10/13/19 21:00 10/18/19 20:53 Minipress PO 1 mg HS LISA Administration Quetiapine Fumarate 300 mg 10/13/19 21:00 10/18/19 20:53 Seroquel PO 300 mg HS LISA Administration Sertraline HCl 100 mg 10/13/19 09:00 10/19/19 07:35 Zoloft PO 100 mg DAILY LISA Administration Tramadol HCl 50 mg 10/18/19 13:09 10/18/19 16:02 Ultram PO 50 mg Q6H PRN Administration Mild Pain (1-3) Tramadol HCl 100 mg 10/18/19 13:09 10/18/19 20:52 Ultram PO 100 mg Q6H PRN Administration Moderate Pain (4-6) Trazodone HCl 50 mg 10/13/19 21:00 10/18/19 21:08 Desyrel PO 50 mg HS LISA Administration - Exam General Appearance: NAD ENT: moist mucosa Heart: RRR, no murmur, no gallops, no rubs Respiratory: CTAB, no wheezes, no rales, no ronchi Gastrointestinal: soft, non-tender, non-distended, normal bowel sounds Extremities - other findings: Left AKA with dressing and drain in place Psychiatric: normal affect, normal behavior, oriented to person, oriented to place Psychiatric - other findings: a little confused about timing of hospital course/ care. Hosp A/P (1) Critical ischemia of lower extremity Code(s): I99.8 - OTHER DISORDER OF CIRCULATORY SYSTEM Status: Acute (2) Embolism of left iliac artery Code(s): I74.5 - EMBOLISM AND THROMBOSIS OF ILIAC ARTERY Status: Acute (3) Supratherapeutic INR Code(s): R79.1 - ABNORMAL COAGULATION PROFILE Status: Acute (4) Chronic respiratory failure with hypoxia Code(s): J96.11 - CHRONIC RESPIRATORY FAILURE WITH HYPOXIA Status: Chronic (5) COPD (chronic obstructive pulmonary disease) Status: Chronic Qualifiers: COPD type: chronic bronchitis (6) CHERIE (acute kidney injury) Code(s): N17.9 - ACUTE KIDNEY FAILURE, UNSPECIFIED Status: Acute (7) Cardiomyopathy Code(s): I42.9 - CARDIOMYOPATHY, UNSPECIFIED Status: Chronic (8) CAD (coronary artery disease) Code(s): I25.10 - ATHSCL HEART DISEASE OF [place] CORONARY ARTERY W/O ANG PCTRS Status: Chronic Qualifiers: Coronary Disease-Associated Artery/Lesion type: [place] artery [place] vs. transplanted heart: [place] heart Associated angina: without angina Qualified Code(s): I25.10 - Atherosclerotic heart disease of [place] coronary artery without angina pectoris (9) CKD (chronic kidney disease), stage III Code(s): N18.3 - CHRONIC KIDNEY DISEASE, STAGE 3 (MODERATE) Status: Chronic (10) Chronic a-fib Code(s): I48.20 - CHRONIC ATRIAL FIBRILLATION, UNSPECIFIED Status: Chronic (11) Dyslipidemia Code(s): E78.5 - HYPERLIPIDEMIA, UNSPECIFIED Status: Chronic (12) H/O mitral valve replacement with mechanical valve Code(s): Z95.2 - PRESENCE OF PROSTHETIC HEART VALVE Status: Chronic (13) H/O unilateral nephrectomy Code(s): Z90.5 - ACQUIRED ABSENCE OF KIDNEY Status: Chronic (14) HTN (hypertension) Code(s): I10 - ESSENTIAL (PRIMARY) HYPERTENSION Status: Chronic (15) Status post above-knee amputation of left lower extremity Code(s): Z89.612 - ACQUIRED ABSENCE OF LEFT LEG ABOVE KNEE Status: Acute (16) Postoperative anemia due to acute blood loss Code(s): D62 - ACUTE POSTHEMORRHAGIC ANEMIA Status: Acute - Plan Critical limb ischemia s/p thrombectomy with concern by CVS for worsening- now s /p left AKA - CK over 4000 -> continue IVF - WBC improving after amputation, can d/c antibiotics Mechanical valve - last dose Coumadin on 10/15, INR down to 2.6 today after FFP yesterday, Dr. Orellana restarting tomorrow Atrial fibrillation - rate controlled, diltiazem gtt d/c Ventricular tachycardia 4 beats yesterday, magnesium replaced orally, climbing up to 1.6 today CHERIE with CKD and hyponatremia - contrast study during this admission to evaluate the occlusion and elevated CK today c/w muscle breakdown in LLE - trend CK daily - check UA - check renal ultrasound - consulted Dr. Meng - Creatinine improving slightly CM - EF 20-25% during this hospitalization which is a decline from previous hospitalizations COPD with chronic resp failure - appears stable DVT LLE - therapeutic on coumadin UTI - Citrobacter - on Rocephin, day #7, can d/c abx post-op pain - continue prn pain meds Tessalon for cough, no evidence infection at this time, likely irritation due to the ET tube during surgery dvt prophy - on Coumadin gi prophy - on protonix/home med code status full
--- NOTE | 2019-10-19 07:59 | PRG ---
DATE OF SERVICE: 10/19/2019 SUBJECTIVE: Ms. Clemens is a 78-year-old white female, seen by the Renal Service for her acute kidney injury on top of her chronic renal failure. She had prerenal azotemia. She was initially admitted due to left hip leg pain. She underwent an emergent embolectomy of the left femoral vessels. During the course of this hospitalization, she developed gangrene of the left lower extremity and underwent left AKA yesterday. She voices no new complaints today. She denies any chest pain or shortness of breath. She requested to have a little more fluid intake. OBJECTIVE: VITAL SIGNS: Blood pressure is 112/58, heart rate 88, respiratory rate 18, temperature 97.9, and O2 saturation 97% on 4 L. GENERAL: The patient is awake, comfortable, not in overt distress. SKIN: Adequate turgor. HEENT: She has a slightly pale conjunctivae. Anicteric sclerae. NECK: No neck mass. No carotid bruits. No JVD. CHEST: No deformities. LUNGS: Clear breath sounds. No wheezing. No crackles. HEART: Normal sinus rhythm. No murmur. No gallops. No rubs. ABDOMEN: Globular. Soft. Nontender. No masses. EXTREMITIES: No edema. Status post left AKA. MEDICATIONS: Medications of October 19, 2019, was reviewed. LABORATORY DATA: Laboratories of October 19, 2019, showed the following: White count 13.4, hemoglobin 8.9. Sodium 131, potassium 4, chloride 93, carbon dioxide 26, BUN 50, creatinine 1.96, glucose 161, calcium 8.9. October 18, 2019, CPK is 4180, please note, magnesium is 1.9. Chest x-ray of October 18, 2019, shows probable mild atelectasis, left lung base. Lungs otherwise reported to be clear. ASSESSMENT AND PLAN: 1. Acute kidney injury/chronic renal failure-stabilizing renal function. If the renal function will further worsen in the next 24 hours, consider restarting back normal saline with this patient at 100 mL/h. 2. Left leg gangrene-status post left AKA. Surgery is following. 3. Borderline anemia. We will continue to observe-p.r.n. blood transfusion. 4. Overall agree with current management. Recheck CBC and basic metabolic in a.m. Job ID: [id number]
--- NOTE | 2019-10-19 10:44 | PDOC.PALCO ---
Palliative Care Consult - Consult Details Requesting Physician: Dr Griffith Reason for Consult: goals of care, complex decision-making, coping issues - Pertinent HPI 78 year old female who lived independently in an apartment prior to recent hospitalization. States decrease in activity, lives on 3rd floor, had utilized elevator for access to home. 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 From [place] and moved to over 30 years ago. Used to enjoy cooking, but only has herself to cook for now. Primarily homebound, utilized a chair lift at home. History reviewed, she relayed that she delayed seeking care for her pain and decrease in mobility, and "knew she would have to have her leg amputated". Pain was her motivator for seeking help, EMS was initiated and identified rapid atrial fibrillation, Cardizem drip. Ms Clemens also relayed increase in lower extremity edema, and cloudy urine with an odor. - Pertinent PMH COPD O2 dependent, Asthma, Atrial Fib, HTN, HDL, Obesity - Social History Smoking Status: Former smoker Smoking: quit greater than 1 year Alcohol Use: none Drug Use History: none Living Situation: independent - Medications MAR Reviewed: Yes - Allergies Allergies/Adverse Reactions: Allergies Allergy/AdvReac Type Severity Reaction Status Date / Time codeine Allergy Verified 10/13/19 03:16 Sulfa (Sulfonamide Allergy Verified 10/13/19 03:16 Antibiotics) - Subjective Improved pain s/p amputation, weakness. - ROS Constitutional: weakness ENT: dry mouth Respiratory: dry cough, shortness of breath Cardiology: other (Negative for chest pain or palpitations) Gastrointestinal: other (Denies nausea, vomiting) Musculoskeletal: arthritis/arthralgias, leg pain - Objective Vital Signs: Vital Signs - Most Recent Temp Pulse Resp BP Pulse Ox 97.9 F 88 18 112/58 L 97 10/19/19 07:31 10/19/19 07:31 10/19/19 07:31 10/19/19 07:33 10/19/19 07:31 Palliative Performance Scale: 40 - Physical Exam Constitutional: ill appearing HEENT: EOMI, moist MMs, sclera anicteric Respiratory: clear to auscultation bilateral, no wheezing Cardiovascular: RRR Gastrointestinal: soft, non-tender Deviation from normal: obese Deviation from normal: Left AKA Skin: cap refill <2 seconds, fragile Psychiatric: A&O x 3 - Problem List (1) Acute on chronic systolic heart failure, NYHA class 4 Code(s): I50.23 - ACUTE ON CHRONIC SYSTOLIC (CONGESTIVE) HEART FAILURE Current Visit: Yes Status: Acute (2) Palliative care encounter Code(s): Z51.5 - ENCOUNTER FOR PALLIATIVE CARE Current Visit: Yes Status: Acute (3) Status post above-knee amputation of left lower extremity Code(s): Z89.612 - ACQUIRED ABSENCE OF LEFT LEG ABOVE KNEE Current Visit: Yes Status: Acute (4) CHERIE (acute kidney injury) Code(s): N17.9 - ACUTE KIDNEY FAILURE, UNSPECIFIED Current Visit: No Status : Acute (5) COPD (chronic obstructive pulmonary disease) Current Visit: No Status: Chronic Qualifiers: COPD type: chronic bronchitis - Plan/Recommendations Plan: [] minutes spent on this encounter with >50% of the time in counseling and coordination of care. Thank you for this very appropriate consult.
[2019-10-19] MEDS: Prazosin HCl 1 MG CAP PO SCH (20:04)
[2019-10-19] MEDS: Atorvastatin Calcium 40 MG TAB PO SCH (20:04)
[2019-10-19] MEDS: traZODone HCl 50 MG TAB PO SCH (20:04)
[2019-10-19] MEDS: Pramipexole Di-HCl 0.25 MG TAB PO SCH (20:04)
[2019-10-19] MEDS: Benzonatate 100 MG CAP PO PRN (20:16)
[2019-10-20 04:58] LABS: #Lymphocytes 0.7 thou/uL (1.20-3.40); #Monocytes 0.6 thou/uL (0.11-0.59); #Neutrophils 8.5 thou/uL (1.40-6.50); %Basophils 0.2 % (0.0-1.0); %Eosinophils 0.3 % (0.0-10.0); %Lymphocytes 7.5 % (21.0-51.0); %Monocytes 6.1 % (0.0-10.0); %Neutrophils 85.9 % (42.0-75.0); Mean Corpuscular HGB CONC 31.3 g/dL (32.0-36.0); Mean Corpuscular Hemoglobin 30.1 pg (27.0-31.0); Mean Corpuscular Volume 96.3 fL (78.0-98.0); Mean Platelet Volume 9.2 fL (7.4-10.4); Platelet Count 172 thou/uL (130-400); RBC Distribution Width 17.7 % (11.5-14.5); Red Blood Cell (RBC) Count 2.99 mill/uL (4.20-5.40); White Blood Cell (WBC) Count 9.9 thou/uL (4.8-10.8)
[2019-10-20 04:59] LABS: INR-International Normal Ratio 2.2; Prothrombin Time 24.2 sec (12.0-14.7)
[2019-10-20 05:18] LABS: Anion Gap 15 mmol/L (10-20); BUN (Urea Nitrogen) 55 mg/dL (9.8-20.1); CK (CPK) 160 U/L (29-168); Calc. Creatinine Clearance 44 mL/min (70-130); Calcium 8.9 mg/dL (7.8-10.44); Carbon Dioxide 27 mmol/L (23-31); Chloride 93 mmol/L (98-107); Estimated GFR-MDRD 27; Glucose 123 mg/dL (83-110); Potassium 4.2 mmol/L (3.5-5.1); Sodium 131 mmol/L (136-145)
[2019-10-20] MEDS: Levothyroxine 150 MCG TAB PO SCH (05:21)
[2019-10-20] MEDS: Morphine 2 MG/ML VIAL SLOW IVP PRN ×3 (05:22→17:34)
[2019-10-20] MEDS: Mometasone 200 MCG/Formoterol 5 MCG 120 PUFF INHALER INH SCH ×2 (07:02→18:18)
--- NOTE | 2019-10-20 08:01 | PDOC.HOSPP ---
- Subjective Encounter Date: 10/20/19 Encounter Time: 10:30 Subjective: Patient with severe worsening of pain yesterday and today in left thigh and especially in left hip, burning, aching severe pain not much helped with opiates. No other complaints. - Objective Vital Signs & Weight: Vital Signs (12 hours) Temp Pulse Resp BP Pulse Ox 10/20/19 03:18 97.5 F L 96 19 119/56 L 92 L 10/20/19 00:00 90 20 10/19/19 20:05 92 L 10/19/19 20:00 98.2 F 103 H 20 130/71 92 L Weight Admit Weight 239 lb 12.8 oz Weight 228 lb 9.6 oz Most Recent Monitor Data Heart Rate from ECG 87 NIBP 112/76 NIBP BP-Mean 88 Respiration from ECG 24 SpO2 99 I&O: 10/19/19 10/20/19 10/21/19 06:59 06:59 06:59 Intake Total 1380 2120 Output Total 445 1000 Balance 935 1120 Result Diagrams: 10/20/19 04:10 10/20/19 04:10 Hospitalist ROS - Review of Systems Constitutional: denies: fever, chills Respiratory: reports: cough (a bit better with tessalon). denies: shortness of breath Cardiovascular: denies: chest pain, palpitations Gastrointestinal: denies: nausea, vomiting, abdominal pain Musculoskeletal: reports: leg pain - Medication Medications: Active Medications Generic Name Dose Route Start Last Admin Trade Name Freq PRN Reason Stop Dose Admin Acetaminophen 650 mg 10/14/19 02:56 10/16/19 04:12 Tylenol PO 650 mg Q4H PRN Administration Headache/Fever or Pain Albuterol/Ipratropium 3 ml 10/13/19 07:00 10/20/19 07:02 Duoneb NEB Not Given [id number] LISA Atorvastatin Calcium 40 mg 10/13/19 21:00 10/19/19 20:04 Lipitor PO 40 mg HS LISA Administration Benzonatate 100 mg 10/19/19 13:30 10/19/19 20:16 Tessalon PO 100 mg Q4H PRN Administration Cough Bismuth Subsalicylate 1 tab 10/16/19 13:36 10/16/19 14:02 Pepto Bismol PO 1 tab Q2H PRN Administration Diarrhea/Loose Stools Calcium/Vitamin D 1 tab 10/13/19 09:00 10/19/19 07:34 Caltrate 600 + Vit D PO 1 tab DAILY LISA Administration Carvedilol 6.25 mg 10/13/19 08:00 10/19/19 18:18 Coreg PO 6.25 mg BID-WM LISA Administration Docusate Sodium 100 mg 10/16/19 21:00 10/19/19 20:04 Colace PO 100 mg BID LISA Administration Ferrous Sulfate 325 mg 10/13/19 09:00 10/19/19 16:36 Feosol PO Not Given 0900,1700 LISA Fish Oil 1,000 mg 10/13/19 09:00 10/19/19 07:34 Fish Oil PO 1,000 mg DAILY [facility] Administration Iron/Minerals/Multivitamins 1 tab 10/13/19 09:00 10/19/19 07:34 Theragran M PO 1 tab DAILY LISA Administration Isosorbide Mononitrate 30 mg 10/18/19 09:00 10/19/19 07:34 Imdur Er PO 30 mg DAILY [facility] Administration Levothyroxine Sodium 150 mcg 10/13/19 06:00 10/20/19 05:21 Synthroid PO 150 mcg 0600 [facility] Administration Magnesium Oxide 400 mg 10/18/19 09:00 10/19/19 20:04 Magnesium Oxide PO 400 mg BID [facility] Administration Mometasone Furoate/Formoterol Fumar 2 puff 10/14/19 18:30 10/20/19 07:02 Dulera 200 Mcg/5 Mcg Inhaler INH 2 puff BID-RT LISA Administration Morphine Sulfate 2 mg 10/13/19 18:05 10/20/19 05:22 Morphine SLOW IVP 2 mg Q2H PRN Administration Pain Nystatin 0 gm 10/15/19 10:56 10/16/19 17:24 Mycostatin Powder TOP 1 applic BID PRN Administration Topical Irritations Pantoprazole Sodium 40 mg 10/13/19 09:00 10/19/19 07:34 Protonix PO 40 mg DAILY [facility] Administration Pramipexole Dihydrochloride 0.5 mg 10/13/19 21:00 10/19/19 20:04 Mirapex PO 0.5 mg HS LISA Administration Prazosin HCl 1 mg 10/13/19 21:00 10/19/19 20:04 Minipress PO 1 mg HS LISA Administration Quetiapine Fumarate 300 mg 10/13/19 21:00 10/19/19 20:04 Seroquel PO 300 mg HS LISA Administration Sertraline HCl 100 mg 10/13/19 09:00 10/19/19 07:35 Zoloft PO 100 mg DAILY LISA Administration Tramadol HCl 50 mg 10/18/19 13:09 10/18/19 16:02 Ultram PO 50 mg Q6H PRN Administration Mild Pain (1-3) Tramadol HCl 100 mg 10/18/19 13:09 10/18/19 20:52 Ultram PO 100 mg Q6H PRN Administration Moderate Pain (4-6) Trazodone HCl 50 mg 10/13/19 21:00 10/19/19 20:04 Desyrel PO 50 mg HS LISA Administration - Exam General Appearance: NAD, awake alert General - other findings: tearful about pain ENT: moist mucosa Heart: no murmur, no gallops, no rubs, irregular Respiratory: CTAB, no wheezes, no rales, no ronchi Gastrointestinal: soft, non-tender, non-distended, normal bowel sounds Extremities - other findings: left AKA with dressing in place Psychiatric: normal affect, normal behavior, A&O x 3 Hosp A/P (1) Critical ischemia of lower extremity Code(s): I99.8 - OTHER DISORDER OF CIRCULATORY SYSTEM Status: Acute (2) Embolism of left iliac artery Code(s): I74.5 - EMBOLISM AND THROMBOSIS OF ILIAC ARTERY Status: Acute (3) Supratherapeutic INR Code(s): R79.1 - ABNORMAL COAGULATION PROFILE Status: Acute (4) Chronic respiratory failure with hypoxia Code(s): J96.11 - CHRONIC RESPIRATORY FAILURE WITH HYPOXIA Status: Chronic (5) COPD (chronic obstructive pulmonary disease) Status: Chronic Qualifiers: COPD type: chronic bronchitis (6) CHERIE (acute kidney injury) Code(s): N17.9 - ACUTE KIDNEY FAILURE, UNSPECIFIED Status: Acute (7) Cardiomyopathy Code(s): I42.9 - CARDIOMYOPATHY, UNSPECIFIED Status: Chronic (8) CAD (coronary artery disease) Code(s): I25.10 - ATHSCL HEART DISEASE OF [place] CORONARY ARTERY W/O ANG PCTRS Status: Chronic Qualifiers: Coronary Disease-Associated Artery/Lesion type: [place] artery [place] vs. transplanted heart: [place] heart Associated angina: without angina Qualified Code(s): I25.10 - Atherosclerotic heart disease of [place] coronary artery without angina pectoris (9) CKD (chronic kidney disease), stage III Code(s): N18.3 - CHRONIC KIDNEY DISEASE, STAGE 3 (MODERATE) Status: Chronic (10) Chronic a-fib Code(s): I48.20 - CHRONIC ATRIAL FIBRILLATION, UNSPECIFIED Status: Chronic (11) Dyslipidemia Code(s): E78.5 - HYPERLIPIDEMIA, UNSPECIFIED Status: Chronic (12) H/O mitral valve replacement with mechanical valve Code(s): Z95.2 - PRESENCE OF PROSTHETIC HEART VALVE Status: Chronic (13) H/O unilateral nephrectomy Code(s): Z90.5 - ACQUIRED ABSENCE OF KIDNEY Status: Chronic (14) HTN (hypertension) Code(s): I10 - ESSENTIAL (PRIMARY) HYPERTENSION Status: Chronic (15) Status post above-knee amputation of left lower extremity Code(s): Z89.612 - ACQUIRED ABSENCE OF LEFT LEG ABOVE KNEE Status: Acute (16) Postoperative anemia due to acute blood loss Code(s): D62 - ACUTE POSTHEMORRHAGIC ANEMIA Status: Acute - Plan Critical limb ischemia s/p thrombectomy with concern by CVS for worsening- now s /p left AKA - CK resolved after amputation - WBC improving after amputation, can d/c antibiotics Postop anemia stable Mechanical valve - last dose Coumadin on 10/15, INR down to 2.6 today after FFP yesterday, Dr. Orellana recommending INR goal of 3.5-4.5 Atrial fibrillation - rate controlled, diltiazem gtt d/c Ventricular tachycardia 4 beats 10/17, magnesium replaced orally, climbing up to 1.6 CHERIE with CKD and hyponatremia - contrast study during this admission to evaluate the occlusion and elevated CK today c/w muscle breakdown in LLE - Creatinine improving 1.78 - CK down to normal CM - EF 20-25% during this hospitalization which is a decline from previous hospitalizations COPD with chronic resp failure on home 4L O2 nc- appears stable DVT LLE - therapeutic on coumadin UTI - Citrobacter - on Rocephin, day #7, can d/c abx post-op pain - continue prn pain meds, will add gabapentin for possible neuropathic pain Tessalon for cough, no evidence infection at this time, likely irritation due to the ET tube during surgery dvt prophy - on Coumadin gi prophy - on protonix/home med code status full
[2019-10-20] MEDS: Carvedilol 6.25 MG TAB PO SCH ×2 (08:32→16:04)
[2019-10-20] MEDS: Calcium Carbonate 600 MG + Vit D TAB PO SCH (08:33)
[2019-10-20] MEDS: Magnesium Oxide 400 MG TAB PO SCH ×2 (08:33→20:54)
[2019-10-20] MEDS: Fish Oil 1,000 MG CAP PO SCH (08:33)
[2019-10-20] MEDS: Multivitamin W/ Minerals 1 TAB PO SCH (08:33)
[2019-10-20] MEDS: Docusate 100 MG CAP PO SCH ×2 (08:33→20:55)
[2019-10-20] MEDS: Sodium Chloride 0.9% 1,000 ML IV SCH ×2 (08:38→17:28)
--- NOTE | 2019-10-20 08:46 | PRG ---
DATE OF SERVICE: 10/20/2019 SUBJECTIVE: Ms. Clemens is a 78 yo white female, seen by the Renal Service for her acute kidney injury on top of her chronic renal failure. She had superimposed prerenal azotemia. IV fluids have been restarted with slight improvement of the renal function. She has also undergone an emergent embolectomy of the left femoral vessels as well as subsequent left AKA due to the development of a gangrenous lesion of the left leg. No new complaints today. OBJECTIVE: VITAL SIGNS: Blood pressure is 118/59, heart rate 95, respiratory rate 16, temperature 97.7, O2 saturation 96%. GENERAL: The patient is awake, alert, comfortable, obese, not in distress. SKIN: Adequate turgor. HEENT: Slightly pale conjunctivae. Anicteric sclerae. No neck mass. No carotid bruits. No JVD. CHEST: No deformities. LUNGS: Clear breath sounds. No wheezing. No crackles. HEART: Normal sinus rhythm. No murmurs. No gallops. No rubs. ABDOMEN: Globular, soft, and nontender. No masses. EXTREMITIES: Status post left AKA. MEDICATIONS: Medications of October 20, 2019, were reviewed. LABORATORY DATA: Laboratories of October 20, 2019: White count 9.9, hemoglobin 9. Sodium 131, potassium 4.2, chloride 93, carbon dioxide 27, BUN 55, creatinine 1.78, glucose 123, and calcium 8.9. CK 160. ASSESSMENT AND PLAN: 1. Acute kidney injury on top of chronic renal failure, slightly improved creatinine from 1.96 to 1.78. I will probably continue with normal saline at 100 mL/h. 2. Borderline anemia - continue to observe, p.r.n. blood transfusion, the patient is currently on iron supplementation. 3. Left gangrenous leg - status post left [id number] amputation. Surgery is following. Overall, the patient is remaining stable. Agree with current management. Recheck CBC and basic metabolic panel in a.m. Job ID: [id number] MTDD
[2019-10-20] MEDS: Ferrous Sulfate 325 MG TAB PO SCH ×2 (09:22→16:06)
[2019-10-20] MEDS ORDERED: Gabapentin 100 MG CAP PO SCH (11:30)
[2019-10-20] MEDS: Benzonatate 100 MG CAP PO PRN (16:04)
[2019-10-20] MEDS: Warfarin Sodium 5 MG TAB PO SCH (16:04)
[2019-10-20] MEDS: traZODone HCl 50 MG TAB PO SCH (20:55)
[2019-10-20] MEDS: Pramipexole Di-HCl 0.25 MG TAB PO SCH (20:55)
[2019-10-20] MEDS: Gabapentin 300 MG CAP PO SCH (20:55)
[2019-10-20] MEDS: Atorvastatin Calcium 40 MG TAB PO SCH (20:55)
[2019-10-20] MEDS: Prazosin HCl 1 MG CAP PO SCH (20:55)
[2019-10-21] MEDS: Sodium Chloride 0.9% 1,000 ML IV SCH (03:27)
[2019-10-21 04:52] LABS: #Eosinphils 0.1 thou/uL (0.0-0.7); #Lymphocytes 0.6 thou/uL (1.20-3.40); #Monocytes 0.6 thou/uL (0.11-0.59); #Neutrophils 6.1 thou/uL (1.40-6.50); %Lymphocytes 8.5 % (21.0-51.0); %Monocytes 7.7 % (0.0-10.0); %Neutrophils 82.9 % (42.0-75.0); Hemoglobin 6.8 g/dL (12.0-16.0); Mean Corpuscular HGB CONC 31.5 g/dL (32.0-36.0); Mean Corpuscular Hemoglobin 30.3 pg (27.0-31.0); Mean Corpuscular Volume 96.1 fL (78.0-98.0); Mean Platelet Volume 9.2 fL (7.4-10.4); Platelet Count 146 thou/uL (130-400); RBC Distribution Width 17.2 % (11.5-14.5); Red Blood Cell (RBC) Count 2.24 mill/uL (4.20-5.40); White Blood Cell (WBC) Count 7.4 thou/uL (4.8-10.8)
[2019-10-21 04:54] LABS: INR-International Normal Ratio 2.2; Prothrombin Time 24.5 sec (12.0-14.7)
[2019-10-21 05:16] LABS: Anion Gap 11 mmol/L (10-20); BUN (Urea Nitrogen) 38 mg/dL (9.8-20.1); Calc. Creatinine Clearance 75 mL/min (70-130); Calcium 6.1 mg/dL (7.8-10.44); Carbon Dioxide 21 mmol/L (23-31); Chloride 108 mmol/L (98-107); Estimated GFR-MDRD 51; Glucose 67 mg/dL (83-110); Potassium 2.9 mmol/L (3.5-5.1); Sodium 137 mmol/L (136-145)
[2019-10-21] MEDS ORDERED: Potassium Chloride 40 MEQ in Sodium Chloride 0.9% 250 ML 250 ML IVPB SCH ×2 (05:45→08:00)
[2019-10-21] MEDS: Levothyroxine 150 MCG TAB PO SCH (06:13)
[2019-10-21] MEDS: Mometasone 200 MCG/Formoterol 5 MCG 120 PUFF INHALER INH SCH ×2 (06:37→18:57)
--- NOTE | 2019-10-21 07:29 | PDOC.HOSPP ---
- Subjective Encounter Date: 10/21/19 Encounter Time: 13:00 Subjective: Patient reports that she hasn't had a bowel movement in quite a few days, feels like she needs to go, had very small stool this AM. Here hip and leg pain are markedly better with the Gabapentin. No other complaints. - Objective Vital Signs & Weight: Vital Signs (12 hours) Temp Pulse Resp BP Pulse Ox 10/21/19 06:37 96 10/21/19 03:34 98.4 F 78 18 109/60 97 10/21/19 00:00 77 20 122/63 99 10/20/19 20:00 97.6 F 89 20 107/60 97 Weight Admit Weight 239 lb 12.8 oz Weight 237 lb 3.2 oz Most Recent Monitor Data Heart Rate from ECG 87 NIBP 112/76 NIBP BP-Mean 88 Respiration from ECG 24 SpO2 99 I&O: 10/20/19 10/21/19 10/22/19 06:59 06:59 06:59 Intake Total 2120 3171 Output Total 1000 1474 Balance 1120 1697 Result Diagrams: 10/21/19 03:47 10/21/19 03:47 Hospitalist ROS - Review of Systems Constitutional: denies: fever, chills Respiratory: denies: cough, shortness of breath Cardiovascular: denies: chest pain, palpitations Gastrointestinal: reports: constipation. denies: nausea, vomiting, abdominal pain, diarrhea Musculoskeletal: reports: leg pain (left hip and stump, improved) - Medication Medications: Active Medications Generic Name Dose Route Start Last Admin Trade Name Freq PRN Reason Stop Dose Admin Acetaminophen 650 mg 10/14/19 02:56 10/16/19 04:12 Tylenol PO 650 mg Q4H PRN Administration Headache/Fever or Pain Albuterol/Ipratropium 3 ml 10/13/19 07:00 10/21/19 06:38 Duoneb NEB Not Given [id number] LISA Atorvastatin Calcium 40 mg 10/13/19 21:00 10/20/19 20:55 Lipitor PO 40 mg HS LISA Administration Benzonatate 100 mg 10/19/19 13:30 10/20/19 16:04 Tessalon PO 100 mg Q4H PRN Administration Cough Bismuth Subsalicylate 1 tab 10/16/19 13:36 10/16/19 14:02 Pepto Bismol PO 1 tab Q2H PRN Administration Diarrhea/Loose Stools Calcium/Vitamin D 1 tab 10/13/19 09:00 10/20/19 08:33 Caltrate 600 + Vit D PO 1 tab DAILY [facility]ISA Administration Carvedilol 6.25 mg 10/13/19 08:00 10/20/19 16:04 Coreg PO 6.25 mg BID-WM LISA Administration Docusate Sodium 100 mg 10/16/19 21:00 10/20/19 20:55 Colace PO 100 mg BID LISA Administration Ferrous Sulfate 325 mg 10/13/19 09:00 10/20/19 16:06 Feosol PO Not Given 0900,1700 LISA Fish Oil 1,000 mg 10/13/19 09:00 10/20/19 08:33 Fish Oil PO 1,000 mg DAILY [facility] Administration Gabapentin 300 mg 10/20/19 21:00 10/20/19 20:55 Neurontin PO 300 mg BID LISA Administration Sodium Chloride 1,000 mls @ 100 mls/hr 10/20/19 08:30 10/21/19 03:27 Normal Saline 0.9% IV 1,000 mls .Q10H LISA Administration Potassium Chloride 40 meq/ 270 mls @ 67.5 mls/hr 10/21/19 05:45 10/21/19 06: 23 Sodium Chloride IVPB 10/21/19 07:30 270 mls NOW LISA Administration Iron/Minerals/Multivitamins 1 tab 10/13/19 09:00 10/20/19 08:33 Theragran M PO 1 tab DAILY [facility] Administration Isosorbide Mononitrate 30 mg 10/18/19 09:00 10/20/19 08:33 Imdur Er PO 30 mg DAILY [facility] Administration Levothyroxine Sodium 150 mcg 10/13/19 06:00 10/21/19 06:13 Synthroid PO 150 mcg 0600 LISA Administration Magnesium Oxide 400 mg 10/18/19 09:00 10/20/19 20:54 Magnesium Oxide PO 400 mg BID LISA Administration Mometasone Furoate/Formoterol Fumar 2 puff 10/14/19 18:30 10/21/19 06:37 Dulera 200 Mcg/5 Mcg Inhaler INH Not Given BID-RT LISA Morphine Sulfate 2 mg 10/13/19 18:05 10/20/19 17:34 Morphine SLOW IVP 2 mg Q2H PRN Administration Pain Nystatin 0 gm 10/15/19 10:56 10/16/19 17:24 Mycostatin Powder TOP 1 applic BID PRN Administration Topical Irritations Pantoprazole Sodium 40 mg 10/13/19 09:00 10/20/19 08:33 Protonix PO 40 mg DAILY LISA Administration Pramipexole Dihydrochloride 0.5 mg 10/13/19 21:00 10/20/19 20:55 Mirapex PO 0.5 mg HS LISA Administration Prazosin HCl 1 mg 10/13/19 21:00 10/20/19 20:55 Minipress PO 1 mg HS LISA Administration Quetiapine Fumarate 300 mg 10/13/19 21:00 10/20/19 20:55 Seroquel PO 300 mg HS LISA Administration Sertraline HCl 100 mg 10/13/19 09:00 10/20/19 08:33 Zoloft PO 100 mg DAILY [facility] Administration Tramadol HCl 50 mg 10/18/19 13:09 10/18/19 16:02 Ultram PO 50 mg Q6H PRN Administration Mild Pain (1-3) Tramadol HCl 100 mg 10/18/19 13:09 10/18/19 20:52 Ultram PO 100 mg Q6H PRN Administration Moderate Pain (4-6) Trazodone HCl 50 mg 10/13/19 21:00 10/20/19 20:55 Desyrel PO 50 mg HS LISA Administration Warfarin Sodium 5 mg 10/20/19 17:00 10/20/19 16:04 Coumadin PO 5 mg 1700 LISA Administration - Exam General Appearance: NAD, awake alert ENT: moist mucosa Heart: RRR, no murmur, no gallops, no rubs Respiratory: CTAB, no wheezes, no rales, no ronchi Gastrointestinal: soft, non-tender, distended Gastrointestinal - other findings: mildly high pitched bowel sounds Extremities - other findings: left AKA with bandage removed, minimal blood from lateral edge with gauze Skin - other findings: no redness or cellulitis Psychiatric: normal affect, normal behavior, A&O x 3 Hosp A/P (1) Critical ischemia of lower extremity Code(s): I99.8 - OTHER DISORDER OF CIRCULATORY SYSTEM Status: Acute (2) Embolism of left iliac artery Code(s): I74.5 - EMBOLISM AND THROMBOSIS OF ILIAC ARTERY Status: Acute (3) Supratherapeutic INR Code(s): R79.1 - ABNORMAL COAGULATION PROFILE Status: Acute (4) Chronic respiratory failure with hypoxia Code(s): J96.11 - CHRONIC RESPIRATORY FAILURE WITH HYPOXIA Status: Chronic (5) COPD (chronic obstructive pulmonary disease) Status: Chronic Qualifiers: COPD type: chronic bronchitis (6) CHERIE (acute kidney injury) Code(s): N17.9 - ACUTE KIDNEY FAILURE, UNSPECIFIED Status: Acute (7) Cardiomyopathy Code(s): I42.9 - CARDIOMYOPATHY, UNSPECIFIED Status: Chronic (8) CAD (coronary artery disease) Code(s): I25.10 - ATHSCL HEART DISEASE OF [place] CORONARY ARTERY W/O ANG PCTRS Status: Chronic Qualifiers: Coronary Disease-Associated Artery/Lesion type: [place] artery [place] vs. transplanted heart: [place] heart Associated angina: without angina Qualified Code(s): I25.10 - Atherosclerotic heart disease of [place] coronary artery without angina pectoris (9) CKD (chronic kidney disease), stage III Code(s): N18.3 - CHRONIC KIDNEY DISEASE, STAGE 3 (MODERATE) Status: Chronic (10) Chronic a-fib Code(s): I48.20 - CHRONIC ATRIAL FIBRILLATION, UNSPECIFIED Status: Chronic (11) Dyslipidemia Code(s): E78.5 - HYPERLIPIDEMIA, UNSPECIFIED Status: Chronic (12) H/O mitral valve replacement with mechanical valve Code(s): Z95.2 - PRESENCE OF PROSTHETIC HEART VALVE Status: Chronic (13) H/O unilateral nephrectomy Code(s): Z90.5 - ACQUIRED ABSENCE OF KIDNEY Status: Chronic (14) HTN (hypertension) Code(s): I10 - ESSENTIAL (PRIMARY) HYPERTENSION Status: Chronic (15) Status post above-knee amputation of left lower extremity Code(s): Z89.612 - ACQUIRED ABSENCE OF LEFT LEG ABOVE KNEE Status: Acute (16) Postoperative anemia due to acute blood loss Code(s): D62 - ACUTE POSTHEMORRHAGIC ANEMIA Status: Acute - Plan Critical limb ischemia s/p thrombectomy with concern by CVS for worsening- now s /p left AKA - CK resolved after amputation - WBC improving after amputation, d/c'd antibiotics Postop anemia- dropped to 6.8 this AM, will transfuse 2 units PRBC and monitor. Mechanical valve - INR down to 2.6 after surgery after FFP, now Coumadin restarted and Dr. Orellana recommending INR goal of 3.5-4.5 Atrial fibrillation - rate controlled, diltiazem gtt d/c Ventricular tachycardia 4 beats 10/17, magnesium replaced orally, climbed up to 1.6, will recheck in the AM CHERIE with CKD and hyponatremia - contrast study during this admission to evaluate the occlusion and elevated CK today c/w muscle breakdown in LLE - Creatinine now normalized - CK down to normal CM - EF 20-25% during this hospitalization which is a decline from previous hospitalizations COPD with chronic resp failure on home 4L O2 nc- appears stable DVT LLE - therapeutic on coumadin UTI - Citrobacter - completed Rocephin for 7 day course post-op pain - continue prn pain meds, will add gabapentin for possible neuropathic pain Tessalon for cough, no evidence infection at this time, likely irritation due to the ET tube during surgery Constipation- likely related to opiate pain meds, adding miralax and Senna, hopefully improve as needs less opiate pain meds dvt prophy - on Coumadin gi prophy - on protonix/home med code status full
[2019-10-21] MEDS ORDERED: Potassium Chloride 40 MEQ in Premix Bag 1 BAG IVPB SCH (07:45)
[2019-10-21] MEDS ORDERED: Furosemide 40 MG/4 ML VIAL SLOW IVP SCH (07:45)
[2019-10-21] MEDS: Magnesium Oxide 400 MG TAB PO SCH ×2 (09:11→21:55)
[2019-10-21] MEDS: Gabapentin 300 MG CAP PO SCH ×2 (09:11→19:59)
[2019-10-21] MEDS: Fish Oil 1,000 MG CAP PO SCH (09:11)
[2019-10-21] MEDS: Benzonatate 100 MG CAP PO PRN (09:11)
[2019-10-21] MEDS: Ferrous Sulfate 325 MG TAB PO SCH ×2 (09:12→17:11)
[2019-10-21] MEDS: Multivitamin W/ Minerals 1 TAB PO SCH (09:12)
[2019-10-21] MEDS: Docusate 100 MG CAP PO SCH ×2 (09:12→19:59)
[2019-10-21] MEDS: Calcium Carbonate 600 MG + Vit D TAB PO SCH (09:12)
--- NOTE | 2019-10-21 09:28 | PRG ---
DATE OF SERVICE: 10/21/2019 SUBJECTIVE: Ms. Clemens is a 78-year-old white female, followed up for acute kidney injury on top of her chronic renal failure. Recently, she underwent a left AKA due to gangrene of the left lower extremity. She did well. In addition, renal function has been improving. We did resume back her IV fluid. No other complaints today. She is feeling better. No chest pain or shortness of breath. OBJECTIVE: VITAL SIGNS: Blood pressure 109/60, heart rate 78, respiratory rate 18, temperature 98.4, O2 saturation 97%. GENERAL: Awake, obese, supine, comfortable, not in distress. SKIN: Adequate turgor. HEENT: Pale conjunctivae. Anicteric sclerae. NECK: No neck mass. No carotid bruits. No JVD. CHEST: No deformities. LUNGS: Clear breath sounds. HEART: Normal sinus rhythm. No murmurs, gallops, or rubs. ABDOMEN: Globular, soft, nontender, no masses. EXTREMITIES: No edema, no deformities, status post left BKA. MEDICATIONS: October 21, 2019, was reviewed. LABORATORY DATA: October 21, 2019, white count 7.4, hemoglobin 6.8. Sodium 137, potassium 2.9, chloride 108, carbon dioxide 21, BUN 30, creatinine 1.04, glucose 67, calcium 6.1. ASSESSMENT AND PLAN: 1. Acute kidney injury on top of chronic renal failure, much improved renal function with IV hydration. Creatinine is now at 1.04 with a GFR of 51 mL/minute. Continue current management. 2. Mild hypokalemia, p.r.n. potassium replacement. 3. Anemia. We will transfuse 1 unit of packed RBC. 4. Due to the much improved renal function, we will be signing off. Please recall if needed. Job ID: [id number]
[2019-10-21] MEDS: Carvedilol 6.25 MG TAB PO SCH ×2 (11:46→17:09)
[2019-10-21] MEDS: Warfarin Sodium 5 MG TAB PO SCH (17:10)
[2019-10-21] MEDS: Atorvastatin Calcium 40 MG TAB PO SCH (19:59)
[2019-10-21] MEDS: traMADol HCl 50 MG TAB PO PRN (20:00)
[2019-10-21] MEDS: Senokot 8.6 MG TAB PO SCH (20:01)
[2019-10-21] MEDS: Prazosin HCl 1 MG CAP PO SCH (20:01)
[2019-10-21 20:32] LABS: Hemoglobin 10.9 g/dL (12.0-16.0)
[2019-10-21 20:51] LABS: Anion Gap 13 mmol/L (10-20); BUN (Urea Nitrogen) 47 mg/dL (9.8-20.1); Calc. Creatinine Clearance 51 mL/min (70-130); Calcium 8.5 mg/dL (7.8-10.44); Carbon Dioxide 26 mmol/L (23-31); Chloride 99 mmol/L (98-107); Estimated GFR-MDRD 33; Glucose 130 mg/dL (83-110); Potassium 4.7 mmol/L (3.5-5.1); Sodium 133 mmol/L (136-145)
[2019-10-21] MEDS: Pramipexole Di-HCl 0.25 MG TAB PO SCH (21:55)
[2019-10-21] MEDS: traZODone HCl 50 MG TAB PO SCH (21:56)
[2019-10-22 04:25] LABS: #Eosinphils 0.4 thou/uL (0.0-0.7); #Lymphocytes 0.7 thou/uL (1.20-3.40); #Monocytes 0.4 thou/uL (0.11-0.59); #Neutrophils 7.1 thou/uL (1.40-6.50); %Eosinophils 4.1 % (0.0-10.0); %Lymphocytes 8.2 % (21.0-51.0); %Monocytes 4.9 % (0.0-10.0); %Neutrophils 82.8 % (42.0-75.0); Hemoglobin 10.5 g/dL (12.0-16.0); Mean Corpuscular HGB CONC 31.7 g/dL (32.0-36.0); Mean Corpuscular Hemoglobin 30.3 pg (27.0-31.0); Mean Corpuscular Volume 95.4 fL (78.0-98.0); Mean Platelet Volume 8.5 fL (7.4-10.4); Platelet Count 174 thou/uL (130-400); RBC Distribution Width 16.8 % (11.5-14.5); Red Blood Cell (RBC) Count 3.47 mill/uL (4.20-5.40); White Blood Cell (WBC) Count 8.6 thou/uL (4.8-10.8)
[2019-10-22 04:43] LABS: Anion Gap 14 mmol/L (10-20); BUN (Urea Nitrogen) 45 mg/dL (9.8-20.1); Calc. Creatinine Clearance 56 mL/min (70-130); Calcium 8.4 mg/dL (7.8-10.44); Carbon Dioxide 25 mmol/L (23-31); Chloride 99 mmol/L (98-107); Estimated GFR-MDRD 37; Glucose 124 mg/dL (83-110); Magnesium 1.5 mg/dL (1.6-2.6); Potassium 3.7 mmol/L (3.5-5.1); Sodium 134 mmol/L (136-145)
[2019-10-22] MEDS: Levothyroxine 150 MCG TAB PO SCH (05:41)
[2019-10-22] MEDS: Mometasone 200 MCG/Formoterol 5 MCG 120 PUFF INHALER INH SCH ×2 (07:23→19:11)
[2019-10-22 07:25] LABS: Prothrombin Time 22.7 sec (12.0-14.7)
--- NOTE | 2019-10-22 08:18 | PDOC.HOSPP ---
- Subjective Encounter Date: 10/22/19 Encounter Time: 10:00 Subjective: Patient still constipated. Quite sleepy from the Gabapentin, but very happy with how well it is working for the pain. No other complaints. - Objective Vital Signs & Weight: Vital Signs (12 hours) Temp Pulse Resp BP Pulse Ox 10/22/19 07:18 78 20 10/22/19 04:00 97.6 F 80 16 118/58 L 93 L Weight Admit Weight 239 lb 12.8 oz Weight 237 lb 3.2 oz Most Recent Monitor Data Heart Rate from ECG 102 NIBP 112/76 NIBP BP-Mean 88 Respiration from ECG 24 SpO2 99 I&O: 10/21/19 10/22/19 10/23/19 06:59 06:59 06:59 Intake Total 3171 2540 Output Total 1474 2500 Balance 1697 40 Result Diagrams: 10/22/19 04:11 10/22/19 04:11 Hospitalist ROS - Review of Systems Constitutional: reports: weakness. denies: fever, chills Respiratory: denies: cough, shortness of breath Cardiovascular: denies: chest pain, palpitations, orthopnea Gastrointestinal: reports: constipation. denies: nausea, vomiting, abdominal pain, diarrhea - Medication Medications: Active Medications Generic Name Dose Route Start Last Admin Trade Name Freq PRN Reason Stop Dose Admin Acetaminophen 650 mg 10/14/19 02:56 10/16/19 04:12 Tylenol PO 650 mg Q4H PRN Administration Headache/Fever or Pain Albuterol/Ipratropium 3 ml 10/13/19 07:00 10/22/19 07:18 Duoneb NEB 3 ml [id number] LISA Administration Atorvastatin Calcium 40 mg 10/13/19 21:00 10/21/19 19:59 Lipitor PO 40 mg HS LISA Administration Benzonatate 100 mg 10/19/19 13:30 10/21/19 09:11 Tessalon PO 100 mg Q4H PRN Administration Cough Bismuth Subsalicylate 1 tab 10/16/19 13:36 10/16/19 14:02 Pepto Bismol PO 1 tab Q2H PRN Administration Diarrhea/Loose Stools Calcium/Vitamin D 1 tab 10/13/19 09:00 10/21/19 09:12 Caltrate 600 + Vit D PO 1 tab DAILY LISA Administration Carvedilol 6.25 mg 10/13/19 08:00 10/21/19 17:09 Coreg PO 6.25 mg BID-WM LISA Administration Docusate Sodium 100 mg 10/16/19 21:00 10/21/19 19:59 Colace PO 100 mg BID LISA Administration Ferrous Sulfate 325 mg 10/13/19 09:00 10/21/19 17:11 Feosol PO Not Given 0900,1700 [facility] Fish Oil 1,000 mg 10/13/19 09:00 10/21/19 09:11 Fish Oil PO 1,000 mg DAILY [facility] Administration Gabapentin 300 mg 10/20/19 21:00 10/21/19 19:59 Neurontin PO 300 mg BID [facility] Administration Iron/Minerals/Multivitamins 1 tab 10/13/19 09:00 10/21/19 09:12 Theragran M PO 1 tab DAILY [facility] Administration Isosorbide Mononitrate 30 mg 10/18/19 09:00 10/21/19 11:46 Imdur Er PO Not Given DAILY [facility] Levothyroxine Sodium 150 mcg 10/13/19 06:00 10/22/19 05:41 Synthroid PO 150 mcg 0600 [facility] Administration Magnesium Oxide 400 mg 10/18/19 09:00 10/21/19 21:55 Magnesium Oxide PO 400 mg BID [facility] Administration Mometasone Furoate/Formoterol Fumar 2 puff 10/14/19 18:30 10/22/19 07:23 Dulera 200 Mcg/5 Mcg Inhaler INH 2 puff BID-RT LISA Administration Morphine Sulfate 2 mg 10/13/19 18:05 10/20/19 17:34 Morphine SLOW IVP 2 mg Q2H PRN Administration Pain Nystatin 0 gm 10/15/19 10:56 10/16/19 17:24 Mycostatin Powder TOP 1 applic BID PRN Administration Topical Irritations Pantoprazole Sodium 40 mg 10/13/19 09:00 10/21/19 09:12 Protonix PO 40 mg DAILY [facility] Administration Pramipexole Dihydrochloride 0.5 mg 10/13/19 21:00 10/21/19 21:55 Mirapex PO 0.5 mg HS LISA Administration Prazosin HCl 1 mg 10/13/19 21:00 10/21/19 20:01 Minipress PO 1 mg HS [facility] Administration Quetiapine Fumarate 300 mg 10/13/19 21:00 10/21/19 21:55 Seroquel PO 300 mg HS LISA Administration Senna 2 tab 10/21/19 21:00 10/21/19 20:01 Senokot PO 2 tab HS LISA Administration Sertraline HCl 100 mg 10/13/19 09:00 10/21/19 09:12 Zoloft PO 100 mg DAILY LISA Administration Tramadol HCl 50 mg 10/18/19 13:09 10/21/19 20:00 Ultram PO 50 mg Q6H PRN Administration Mild Pain (1-3) Tramadol HCl 100 mg 10/18/19 13:09 10/18/19 20:52 Ultram PO 100 mg Q6H PRN Administration Moderate Pain (4-6) Trazodone HCl 50 mg 10/13/19 21:00 10/21/19 21:56 Desyrel PO 50 mg HS LISA Administration Warfarin Sodium 5 mg 10/20/19 17:00 10/21/19 17:10 Coumadin PO 5 mg 1700 LISA Administration - Exam General Appearance: NAD, awake alert ENT: moist mucosa Heart: RRR, no murmur, no gallops, no rubs Respiratory: CTAB, no wheezes, no rales, no ronchi Gastrointestinal: soft, non-tender, non-distended, normal bowel sounds Psychiatric: normal affect, normal behavior, A&O x 3 Hosp A/P (1) Critical ischemia of lower extremity Code(s): I99.8 - OTHER DISORDER OF CIRCULATORY SYSTEM Status: Acute (2) Embolism of left iliac artery Code(s): I74.5 - EMBOLISM AND THROMBOSIS OF ILIAC ARTERY Status: Acute (3) Supratherapeutic INR Code(s): R79.1 - ABNORMAL COAGULATION PROFILE Status: Resolved (4) Chronic respiratory failure with hypoxia Code(s): J96.11 - CHRONIC RESPIRATORY FAILURE WITH HYPOXIA Status: Chronic (5) COPD (chronic obstructive pulmonary disease) Status: Chronic Qualifiers: COPD type: chronic bronchitis (6) CHERIE (acute kidney injury) Code(s): N17.9 - ACUTE KIDNEY FAILURE, UNSPECIFIED Status: Acute (7) Cardiomyopathy Code(s): I42.9 - CARDIOMYOPATHY, UNSPECIFIED Status: Chronic (8) CAD (coronary artery disease) Code(s): I25.10 - ATHSCL HEART DISEASE OF [place] CORONARY ARTERY W/O ANG PCTRS Status: Chronic Qualifiers: Coronary Disease-Associated Artery/Lesion type: [place] artery [place] vs. transplanted heart: [place] heart Associated angina: without angina Qualified Code(s): I25.10 - Atherosclerotic heart disease of [place] coronary artery without angina pectoris (9) CKD (chronic kidney disease), stage III Code(s): N18.3 - CHRONIC KIDNEY DISEASE, STAGE 3 (MODERATE) Status: Chronic (10) Chronic a-fib Code(s): I48.20 - CHRONIC ATRIAL FIBRILLATION, UNSPECIFIED Status: Chronic (11) Dyslipidemia Code(s): E78.5 - HYPERLIPIDEMIA, UNSPECIFIED Status: Chronic (12) H/O mitral valve replacement with mechanical valve Code(s): Z95.2 - PRESENCE OF PROSTHETIC HEART VALVE Status: Chronic (13) H/O unilateral nephrectomy Code(s): Z90.5 - ACQUIRED ABSENCE OF KIDNEY Status: Chronic (14) HTN (hypertension) Code(s): I10 - ESSENTIAL (PRIMARY) HYPERTENSION Status: Chronic (15) Status post above-knee amputation of left lower extremity Code(s): Z89.612 - ACQUIRED ABSENCE OF LEFT LEG ABOVE KNEE Status: Acute (16) Postoperative anemia due to acute blood loss Code(s): D62 - ACUTE POSTHEMORRHAGIC ANEMIA Status: Acute - Plan Critical limb ischemia s/p thrombectomy with concern by CVS for worsening- now s /p left AKA - CK resolved after amputation - WBC improving after amputation, d/c'd antibiotics Postop anemia- dropped to 6.8 yest AM, back up to 10 after 2 units PRBC and stable this AM, will monitor. Mechanical valve - INR down to 2.6 after surgery after FFP, now Coumadin restarted and Dr. Orellana now recommending INR goal of 3.0-3.5, INR this AM down further to 2.0, will need to titrate up the Coumadin Atrial fibrillation - rate controlled, diltiazem gtt d/c Ventricular tachycardia 4 beats 8/24, magnesium replaced orally, climbed up to 1.6, but back down to 1.5 on oral supplementation, will give another IV dose CHERIE with CKD and hyponatremia - contrast study during this admission to evaluate the occlusion and elevated CK today c/w muscle breakdown in LLE - Creatinine now normalized - CK down to normal CM - EF 20-25% during this hospitalization which is a decline from previous hospitalizations, Dr. Pearson to see today for recommendations going forward. COPD with chronic resp failure on home 4L O2 nc- appears stable DVT LLE - therapeutic on coumadin UTI - Citrobacter - completed Rocephin for 7 day course post-op pain - continue prn pain meds, markedly improved with Gabapentin, due to sleepiness with try to decrease the Gabapentin Tessalon for cough, no evidence infection at this time, likely irritation due to the ET tube during surgery Constipation- likely related to opiate pain meds, adding miralax and Senna, hopefully improve as needs less opiate pain meds dvt prophy - on Coumadin gi prophy - on protonix/home med code status full
[2019-10-22] MEDS: Benzonatate 100 MG CAP PO PRN ×2 (08:21→20:52)
[2019-10-22] MEDS: Carvedilol 6.25 MG TAB PO SCH ×2 (08:22→17:00)
[2019-10-22] MEDS: Fish Oil 1,000 MG CAP PO SCH (08:22)
[2019-10-22] MEDS: Magnesium Oxide 400 MG TAB PO SCH ×2 (08:22→20:49)
[2019-10-22] MEDS: Calcium Carbonate 600 MG + Vit D TAB PO SCH (08:22)
[2019-10-22] MEDS: Gabapentin 300 MG CAP PO SCH ×2 (08:22→20:49)
[2019-10-22] MEDS: Multivitamin W/ Minerals 1 TAB PO SCH (08:22)
[2019-10-22] MEDS: Docusate 100 MG CAP PO SCH ×2 (08:22→20:49)
[2019-10-22] MEDS: Ferrous Sulfate 325 MG TAB PO SCH ×3 (08:22→17:52)
[2019-10-22] MEDS: Furosemide 40 MG/4 ML VIAL SLOW IVP SCH ×2 (08:23→09:33)
[2019-10-22] MEDS: Polyethylene Glycol 3350 17 GM Packet PO SCH (08:23)
[2019-10-22] MEDS ORDERED: Magnesium 2 GM/50 ML 2 GM in Premix Bag 1 BAG IVPB SCH (08:30)
[2019-10-22] MEDS: Warfarin Sodium 5 MG TAB PO SCH (17:00)
[2019-10-22] MEDS: Warfarin Sodium 2.5 MG TAB PO SCH (17:02)
[2019-10-22] MEDS: Pramipexole Di-HCl 0.25 MG TAB PO SCH (20:49)
[2019-10-22] MEDS: traZODone HCl 50 MG TAB PO SCH (20:49)
[2019-10-22] MEDS: Senokot 8.6 MG TAB PO SCH (20:49)
[2019-10-22] MEDS: Atorvastatin Calcium 40 MG TAB PO SCH (20:49)
[2019-10-22] MEDS: traMADol HCl 50 MG TAB PO PRN (20:50)
[2019-10-22] MEDS: Prazosin HCl 1 MG CAP PO SCH (20:52)
[2019-10-23] MEDS: traMADol HCl 50 MG TAB PO PRN ×3 (04:12→21:20)
[2019-10-23] MEDS: Levothyroxine 150 MCG TAB PO SCH (04:12)
[2019-10-23] MEDS: Mometasone 200 MCG/Formoterol 5 MCG 120 PUFF INHALER INH SCH ×2 (08:06→18:56)
--- NOTE | 2019-10-23 08:11 | PDOC.HOSPP ---
- Subjective Encounter Date: 10/23/19 Encounter Time: 11:30 Subjective: Patient with abdominal cramping/bloating from constipation. Starting to have soft bowel movements. Still with cough and secretions in throat. Very sleepy but pain controlled in leg. I did stress to her the need to at least do a little bit of PT each day and patient said she will try to do a little. Will decrease the Gabapentin to see if she will wake up better. - Objective Vital Signs & Weight: Vital Signs (12 hours) Temp Pulse Resp BP Pulse Ox 10/23/19 08:06 78 18 10/23/19 07:59 78 18 10/23/19 07:36 97.7 F 82 13 126/59 L 97 10/23/19 04:00 98.6 F 80 20 106/61 94 L Weight Admit Weight 239 lb 12.8 oz Weight 237 lb 3.2 oz Most Recent Monitor Data Heart Rate from ECG 102 NIBP 112/76 NIBP BP-Mean 88 Respiration from ECG 24 SpO2 99 I&O: 10/22/19 10/23/19 10/24/19 06:59 06:59 06:59 Intake Total 2540 2100 Output Total 2500 2000 Balance 40 100 Result Diagrams: 10/22/19 04:11 10/22/19 04:11 Hospitalist ROS - Review of Systems Constitutional: denies: fever, chills Respiratory: reports: cough. denies: shortness of breath Cardiovascular: denies: chest pain, palpitations, orthopnea Gastrointestinal: reports: abdominal pain. denies: nausea, vomiting - Medication Medications: Active Medications Generic Name Dose Route Start Last Admin Trade Name Freq PRN Reason Stop Dose Admin Acetaminophen 650 mg 10/14/19 02:56 10/16/19 04:12 Tylenol PO 650 mg Q4H PRN Administration Headache/Fever or Pain Albuterol/Ipratropium 3 ml 10/13/19 07:00 10/23/19 07:59 Duoneb NEB 3 ml [id number] LISA Administration Atorvastatin Calcium 40 mg 10/13/19 21:00 10/22/19 20:49 Lipitor PO 40 mg HS LISA Administration Benzonatate 100 mg 10/19/19 13:30 10/22/19 20:52 Tessalon PO 100 mg Q4H PRN Administration Cough Bismuth Subsalicylate 1 tab 10/16/19 13:36 10/16/19 14:02 Pepto Bismol PO 1 tab Q2H PRN Administration Diarrhea/Loose Stools Calcium/Vitamin D 1 tab 10/13/19 09:00 10/22/19 08:22 Caltrate 600 + Vit D PO 1 tab DAILY LISA Administration Carvedilol 6.25 mg 10/13/19 08:00 10/22/19 17:00 Coreg PO 6.25 mg BID-WM LISA Administration Docusate Sodium 100 mg 10/16/19 21:00 10/22/19 20:49 Colace PO 100 mg BID LISA Administration Ferrous Sulfate 325 mg 10/13/19 09:00 10/22/19 17:52 Feosol PO Not Given 0900,1700 [facility] Fish Oil 1,000 mg 10/13/19 09:00 10/22/19 08:22 Fish Oil PO 1,000 mg DAILY LISA Administration Furosemide 40 mg 10/22/19 09:00 10/22/19 09:33 Lasix SLOW IVP 40 mg DAILY LISA Administration Gabapentin 300 mg 10/20/19 21:00 10/22/19 20:49 Neurontin PO 300 mg BID [facility] Administration Iron/Minerals/Multivitamins 1 tab 10/13/19 09:00 10/22/19 08:22 Theragran M PO 1 tab DAILY LISA Administration Isosorbide Mononitrate 30 mg 10/18/19 09:00 10/22/19 08:23 Imdur Er PO 30 mg DAILY LISA Administration Levothyroxine Sodium 150 mcg 10/13/19 06:00 10/23/19 04:12 Synthroid PO 150 mcg 0600 LISA Administration Magnesium Oxide 400 mg 10/18/19 09:00 10/22/19 20:49 Magnesium Oxide PO 400 mg BID [facility] Administration Mometasone Furoate/Formoterol Fumar 2 puff 10/14/19 18:30 10/23/19 08:06 Dulera 200 Mcg/5 Mcg Inhaler INH 2 puff BID-RT LISA Administration Morphine Sulfate 2 mg 10/13/19 18:05 10/20/19 17:34 Morphine SLOW IVP 2 mg Q2H PRN Administration Pain Nystatin 0 gm 10/15/19 10:56 10/16/19 17:24 Mycostatin Powder TOP 1 applic BID PRN Administration Topical Irritations Pantoprazole Sodium 40 mg 10/13/19 09:00 10/22/19 08:22 Protonix PO 40 mg DAILY LISA Administration Polyethylene Glycol 17 gm 10/22/19 09:00 10/22/19 08:23 Miralax PO 17 gm DAILY LISA Administration Pramipexole Dihydrochloride 0.5 mg 10/13/19 21:00 10/22/19 20:49 Mirapex PO 0.5 mg HS LISA Administration Prazosin HCl 1 mg 10/13/19 21:00 10/22/19 20:52 Minipress PO 1 mg HS LISA Administration Quetiapine Fumarate 300 mg 10/13/19 21:00 10/22/19 20:49 Seroquel PO 300 mg HS LISA Administration Senna 2 tab 10/21/19 21:00 10/22/19 20:49 Senokot PO 2 tab HS LISA Administration Sertraline HCl 100 mg 10/13/19 09:00 10/22/19 08:23 Zoloft PO 100 mg DAILY LISA Administration Tramadol HCl 50 mg 10/18/19 13:09 10/23/19 04:12 Ultram PO 50 mg Q6H PRN Administration Mild Pain (1-3) Tramadol HCl 100 mg 10/18/19 13:09 10/18/19 20:52 Ultram PO 100 mg Q6H PRN Administration Moderate Pain (4-6) Trazodone HCl 50 mg 10/13/19 21:00 10/22/19 20:49 Desyrel PO 50 mg HS LISA Administration Warfarin Sodium 5 mg 10/20/19 17:00 10/22/19 17:00 Coumadin PO 5 mg 1700 LISA Administration Warfarin Sodium 2.5 mg 10/22/19 17:00 10/22/19 17:02 Coumadin PO 10/23/19 17:01 2.5 mg 1700 LISA Administration - Exam General Appearance: NAD General - other findings: Sleeping, easily arousable ENT: moist mucosa Heart: RRR, no murmur, no gallops, no rubs Respiratory: CTAB, no wheezes, no rales, no ronchi Gastrointestinal: soft, non-tender, non-distended, normal bowel sounds Psychiatric: normal affect, normal behavior, A&O x 3 Hosp A/P (1) Critical ischemia of lower extremity Code(s): I99.8 - OTHER DISORDER OF CIRCULATORY SYSTEM Status: Acute (2) Embolism of left iliac artery Code(s): I74.5 - EMBOLISM AND THROMBOSIS OF ILIAC ARTERY Status: Acute (3) Supratherapeutic INR Code(s): R79.1 - ABNORMAL COAGULATION PROFILE Status: Resolved (4) Chronic respiratory failure with hypoxia Code(s): J96.11 - CHRONIC RESPIRATORY FAILURE WITH HYPOXIA Status: Chronic (5) COPD (chronic obstructive pulmonary disease) Status: Chronic Qualifiers: COPD type: chronic bronchitis (6) CHERIE (acute kidney injury) Code(s): N17.9 - ACUTE KIDNEY FAILURE, UNSPECIFIED Status: Acute (7) Cardiomyopathy Code(s): I42.9 - CARDIOMYOPATHY, UNSPECIFIED Status: Chronic (8) CAD (coronary artery disease) Code(s): I25.10 - ATHSCL HEART DISEASE OF [place] CORONARY ARTERY W/O ANG PCTRS Status: Chronic Qualifiers: Coronary Disease-Associated Artery/Lesion type: [place] artery [place] vs. transplanted heart: [place] heart Associated angina: without angina Qualified Code(s): I25.10 - Atherosclerotic heart disease of [place] coronary artery without angina pectoris (9) CKD (chronic kidney disease), stage III Code(s): N18.3 - CHRONIC KIDNEY DISEASE, STAGE 3 (MODERATE) Status: Chronic (10) Chronic a-fib Code(s): I48.20 - CHRONIC ATRIAL FIBRILLATION, UNSPECIFIED Status: Chronic (11) Dyslipidemia Code(s): E78.5 - HYPERLIPIDEMIA, UNSPECIFIED Status: Chronic (12) H/O mitral valve replacement with mechanical valve Code(s): Z95.2 - PRESENCE OF PROSTHETIC HEART VALVE Status: Chronic (13) H/O unilateral nephrectomy Code(s): Z90.5 - ACQUIRED ABSENCE OF KIDNEY Status: Chronic (14) HTN (hypertension) Code(s): I10 - ESSENTIAL (PRIMARY) HYPERTENSION Status: Chronic (15) Status post above-knee amputation of left lower extremity Code(s): Z89.612 - ACQUIRED ABSENCE OF LEFT LEG ABOVE KNEE Status: Acute (16) Postoperative anemia due to acute blood loss Code(s): D62 - ACUTE POSTHEMORRHAGIC ANEMIA Status: Acute - Plan Critical limb ischemia s/p thrombectomy with concern by CVS for worsening- now s /p left AKA - CK resolved after amputation - WBC improving after amputation, d/c'd antibiotics Postop anemia- dropped to 6.8 yest AM, back up to 10 after 2 units PRBC and stable this AM, will monitor. Mechanical valve - INR down to 2.6 after surgery after FFP, now Coumadin restarted and Dr. Orellana now recommending INR goal of 3.0-3.5, INR now down further to 2.0, will need to titrate up the Coumadin Atrial fibrillation - rate controlled, diltiazem gtt d/c Ventricular tachycardia 4 beats 10/17, magnesium replaced orally, climbed up to 1.6, but back down to 1.5 on oral supplementation, will give another IV dose CHERIE with CKD and hyponatremia - contrast study during this admission to evaluate the occlusion and elevated CK today c/w muscle breakdown in LLE - Creatinine now normalized - CK down to normal CM - EF 20-25% during this hospitalization which is a decline from previous hospitalizations, Dr. Pearson to see today for recommendations going forward. COPD with chronic resp failure on home 4L O2 nc- appears stable DVT LLE - therapeutic on coumadin UTI - Citrobacter - completed Rocephin for 7 day course post-op pain - continue prn pain meds, markedly improved with Gabapentin, due to sleepiness with try to decrease the Gabapentin Will try Hyoscine for abdominal cramping, avoid opiates Tessalon for cough, no evidence infection at this time, likely irritation due to the ET tube during surgery Constipation- likely related to opiate pain meds, adding miralax and Senna, hopefully improve as needs less opiate pain meds, still not passing BM per nursing records, will need to titrate up laxatives Patient refusing to participate in PT. Counselled patient that if she doesn't participate in PT, she will never be able to get up again and will not be able to return to assisted living. Decrease Gabapentin. dvt prophy - on Coumadin gi prophy - on protonix/home med code status full
[2019-10-23] MEDS: Fish Oil 1,000 MG CAP PO SCH (09:02)
[2019-10-23] MEDS: Furosemide 40 MG/4 ML VIAL SLOW IVP SCH (09:02)
[2019-10-23] MEDS: Polyethylene Glycol 3350 17 GM Packet PO SCH (09:02)
[2019-10-23] MEDS: Gabapentin 300 MG CAP PO SCH (09:03)
[2019-10-23] MEDS: Multivitamin W/ Minerals 1 TAB PO SCH (09:03)
[2019-10-23] MEDS: Docusate 100 MG CAP PO SCH ×2 (09:03→21:21)
[2019-10-23] MEDS: Calcium Carbonate 600 MG + Vit D TAB PO SCH (09:03)
[2019-10-23] MEDS: Carvedilol 6.25 MG TAB PO SCH ×2 (09:04→16:28)
[2019-10-23] MEDS: Ferrous Sulfate 325 MG TAB PO SCH ×2 (09:04→16:26)
[2019-10-23] MEDS: Magnesium Oxide 400 MG TAB PO SCH ×2 (09:04→21:20)
[2019-10-23] MEDS ORDERED: Hyoscyamine Sulfate 0.125 MG/5 ML UDCUP PO PRN (11:47)
[2019-10-23] MEDS: Guaifenesin DM 100-10/5 ML UDCUP PO PRN (12:19)
--- NOTE | 2019-10-23 15:50 | PDOC.CPN ---
- Subjective Date: 10/23/19 Time: 15:48 Interval history: She is still feeling very weak. No chest pain, tightness, pressure. Still needing O2 supplementation. - Review of Systems General: reports: fatigue. denies: fever/chills, weight/appetite/sleep changes , night sweats Respiratory: reports: exercise intolerance. denies: cough, congestion, shortness of breath Cardiovascular: denies: chest pain, palpitation, edema, paroxysmal nocturnal dyspnea, orthopnea Gastrointestinal: denies: nausea, vomiting, diarrhea, constipation, abd pain, GI bleeding Musculoskeletal: reports: stiffness. denies: pain, tenderness, swelling, arthritis/arthralgias Neurological: denies: numbness, syncope, seizure, weakness - Objective Allergies/Adverse Reactions: Allergies Allergy/AdvReac Type Severity Reaction Status Date / Time codeine Allergy Verified 10/13/19 03:16 Sulfa (Sulfonamide Allergy Verified 10/13/19 03:16 Antibiotics) Visit Medications: Current Medications Acetaminophen (Tylenol) 650 mg [place] Q4H PRN PRN Reason: Headache/Fever or Pain Acetaminophen (Tylenol) 650 mg PO Q4H PRN PRN Reason: Headache/Fever or Pain Last Admin: 10/16/19 04:12 Dose: 650 mg Albuterol/Ipratropium (Duoneb) 3 ml NEB [id number] [facility] Last Admin: 10/23/19 13:21 Dose: 3 ml Albuterol/Ipratropium (Duoneb) 3 ml EZPAP Q2H PRN PRN Reason: SOB &/or Wheezing Atorvastatin Calcium (Lipitor) 40 mg PO HS [facility] Last Admin: 10/22/19 20:49 Dose: 40 mg Benzonatate (Tessalon) 100 mg PO Q4H PRN PRN Reason: Cough Last Admin: 10/22/19 20:52 Dose: 100 mg Bisacodyl (Dulcolax) 10 mg PO DAILYPRN PRN PRN Reason: Constipation Bisacodyl (Dulcolax) 10 mg [place] DAILYPRN PRN PRN Reason: Constipation Bismuth Subsalicylate (Pepto Bismol) 1 tab PO Q2H PRN PRN Reason: Diarrhea/Loose Stools Last Admin: 10/16/19 14:02 Dose: 1 tab Calcium/Vitamin D (Caltrate 600 + Vit D) 1 tab PO DAILY [facility] Last Admin: 10/23/19 09:03 Dose: 1 tab Carvedilol (Coreg) 6.25 mg PO BID-WM [facility] Last Admin: 10/23/19 09:04 Dose: 6.25 mg Docusate Sodium (Colace) 100 mg PO BID [facility] Last Admin: 10/23/19 09:03 Dose: 100 mg Fentanyl (Sublimaze) 25 mcg SLOW IVP Q2H PRN PRN Reason: Mild-Moderate Pain (1-5) Fentanyl (Sublimaze) 50 mcg SLOW IVP Q2H PRN PRN Reason: Moderate to Severe Pain (6-10) Ferrous Sulfate (Feosol) 325 mg PO 0900,1700 [facility] Last Admin: 10/23/19 09:04 Dose: 325 mg Fish Oil (Fish Oil) 1,000 mg PO DAILY [facility] Last Admin: 10/23/19 09:02 Dose: 1,000 mg Furosemide (Lasix) 40 mg SLOW IVP DAILY [facility] Last Admin: 10/23/19 09:02 Dose: 40 mg Gabapentin (Neurontin) 100 mg PO TID [facility] Guaifenesin/Dextromethorphan (Robitussin Dm) 15 ml PO Q4H PRN PRN Reason: Cough Last Admin: 10/23/19 12:19 Dose: 15 ml Hyoscyamine Sulfate (Levsin Elixir) 0.125 mg PO Q4H PRN PRN Reason: GI Cramping Last Admin: 10/23/19 15:22 Dose: 0.125 mg Iron/Minerals/Multivitamins (Theragran M) 1 tab PO DAILY [facility] Last Admin: 10/23/19 09:03 Dose: 1 tab Isosorbide Mononitrate (Imdur Er) 30 mg PO DAILY [facility] Last Admin: 10/23/19 09:03 Dose: 30 mg Levothyroxine Sodium (Synthroid) 150 mcg PO 0600 [facility] Last Admin: 10/23/19 04:12 Dose: 150 mcg Magnesium Oxide (Magnesium Oxide) 400 mg PO BID [facility] Last Admin: 10/23/19 09:04 Dose: 400 mg Miscellaneous Medication (Pharmacy To Dose) 1 each PO PRN PRN PRN Reason: Pharmacy to dose Mometasone Furoate/Formoterol Fumar (Dulera 200 Mcg/5 Mcg Inhaler) 2 puff INH BID-RT [facility] Last Admin: 10/23/19 08:06 Dose: 2 puff Morphine Sulfate (Morphine) 2 mg SLOW IVP Q2H PRN PRN Reason: Pain Last Admin: 10/20/19 17:34 Dose: 2 mg Nitroglycerin (Nitrostat) 0.4 mg SL Q30M PRN PRN Reason: .CHEST PAIN Nystatin (Mycostatin Powder) 0 gm TOP BID PRN PRN Reason: Topical Irritations Last Admin: 10/16/19 17:24 Dose: 1 applic Pantoprazole Sodium (Protonix) 40 mg PO DAILY [facility] Last Admin: 10/23/19 09:03 Dose: 40 mg Polyethylene Glycol (Miralax) 17 gm PO DAILY [facility] Last Admin: 10/23/19 09:02 Dose: 17 gm Pramipexole Dihydrochloride (Mirapex) 0.5 mg PO [facility] Last Admin: 10/22/19 20:49 Dose: 0.5 mg Prazosin HCl (Minipress) 1 mg PO [facility] Last Admin: 10/22/19 20:52 Dose: 1 mg Quetiapine Fumarate (Seroquel) 300 mg PO [facility] Last Admin: 10/22/19 20:49 Dose: 300 mg Senna (Senokot) 2 tab PO [facility] Last Admin: 10/22/19 20:49 Dose: 2 tab Sertraline HCl (Zoloft) 100 mg PO DAILY [facility] Last Admin: 10/23/19 09:03 Dose: 100 mg Sterile Water (Bacteriostatic Water) 1 ml FS PRN PRN PRN Reason: RECONSTITUTION Tramadol HCl (Ultram) 50 mg PO Q6H PRN PRN Reason: Mild Pain (1-3) Last Admin: 10/23/19 04:12 Dose: 50 mg Tramadol HCl (Ultram) 100 mg PO Q6H PRN PRN Reason: Moderate Pain (4-6) Last Admin: 10/23/19 09:20 Dose: 100 mg Trazodone HCl (Desyrel) 50 mg PO [facility] Last Admin: 10/22/19 20:49 Dose: 50 mg Warfarin Sodium (Coumadin) 5 mg PO 1700 [facility] Last Admin: 10/22/19 17:00 Dose: 5 mg Warfarin Sodium (Coumadin) 2.5 mg PO 1700 [facility] Stop: 10/23/19 17:01 Last Admin: 10/22/19 17:02 Dose: 2.5 mg Vital Signs & Weight: Vital Signs Temp Pulse Resp BP Pulse Ox 10/23/19 13:21 75 18 10/23/19 11:49 97.9 F 75 18 122/73 94 L 10/23/19 08:06 78 18 10/23/19 07:59 78 18 10/23/19 07:36 97.7 F 82 13 126/59 L 97 10/23/19 04:00 98.6 F 80 20 106/61 94 L Admit Weight 239 lb 12.8 oz Weight 237 lb 3.2 oz - Physical Exam General: alert & oriented x3 HEENT: mucus membranes moist Neck: supple neck Cardiac: irregularly regular Lungs: normal breath sounds Neuro: grossly intact Abdomen: active bowel sounds Extremities: 1+ LE edema Skin: clear Musculoskeletal: no pain - Labs Result Diagrams: 10/22/19 04:11 10/22/19 04:11 - Telemetry Supraventricular conduction: atrial fibrillation - Assessment/Plan Assessment/Plan: 1. Dilated CM 2. S/P Mechanical mitral valve 3. CAD s/p multiple stents done with Dr. Pham at [facility] 4. Hodgkins Lymphoma in remission 5. Paroxysmal afib 6. LV function at 20-25% on echo prior to amputation 7. PVD s/p left leg BKA. 8. Chronic anticoagulation on coumain PLAN: - Continue coumadin for both stroke prophylaxis from afib and mechanical valve. - Will repeat echo and if EF remains low will need lifevest and eventually AICD if no improvement. - Currently she is too weak to undergo LHC and she is not having any anginal symptoms and Reduced EF may be chronic, last evaluation here was in May 2019 and her EF was at 35-40%. - Continue BB and Imdur - Renal function improved and will likely start Entresto in next few days if renal function remains stable. - Will follow.
[2019-10-23] MEDS: Warfarin Sodium 2.5 MG TAB PO SCH (16:27)
[2019-10-23] MEDS: Warfarin Sodium 5 MG TAB PO SCH (16:27)
[2019-10-23] MEDS: Pramipexole Di-HCl 0.25 MG TAB PO SCH (21:19)
[2019-10-23] MEDS: Gabapentin 100 MG CAP PO SCH (21:20)
[2019-10-23] MEDS: traZODone HCl 50 MG TAB PO SCH (21:20)
[2019-10-23] MEDS: Prazosin HCl 1 MG CAP PO SCH (21:20)
[2019-10-23] MEDS: Atorvastatin Calcium 40 MG TAB PO SCH (21:20)
[2019-10-23] MEDS: Senokot 8.6 MG TAB PO SCH (21:21)
[2019-10-24 04:31] LABS: #Eosinphils 0.5 thou/uL (0.0-0.7); #Lymphocytes 0.9 thou/uL (1.20-3.40); #Monocytes 0.4 thou/uL (0.11-0.59); #Neutrophils 8.6 thou/uL (1.40-6.50); %Basophils 0.2 % (0.0-1.0); %Eosinophils 4.6 % (0.0-10.0); %Lymphocytes 8.7 % (21.0-51.0); %Monocytes 4.1 % (0.0-10.0); %Neutrophils 82.5 % (42.0-75.0); Hemoglobin 10.6 g/dL (12.0-16.0); Mean Corpuscular HGB CONC 32.5 g/dL (32.0-36.0); Mean Corpuscular Hemoglobin 30.2 pg (27.0-31.0); Mean Platelet Volume 9.1 fL (7.4-10.4); Platelet Count 209 thou/uL (130-400); RBC Distribution Width 16.9 % (11.5-14.5); Red Blood Cell (RBC) Count 3.52 mill/uL (4.20-5.40); White Blood Cell (WBC) Count 10.4 thou/uL (4.8-10.8)
[2019-10-24 04:48] LABS: INR-International Normal Ratio 3.4; Prothrombin Time 34.3 sec (12.0-14.7)
[2019-10-24 04:54] LABS: Anion Gap 15 mmol/L (10-20); BUN (Urea Nitrogen) 43 mg/dL (9.8-20.1); Calc. Creatinine Clearance 57 mL/min (70-130); Calcium 8.5 mg/dL (7.8-10.44); Carbon Dioxide 27 mmol/L (23-31); Chloride 95 mmol/L (98-107); Estimated GFR-MDRD 38; Glucose 101 mg/dL (83-110); Potassium 3.7 mmol/L (3.5-5.1); Sodium 133 mmol/L (136-145)
[2019-10-24] MEDS: Levothyroxine 150 MCG TAB PO SCH (05:35)
[2019-10-24] MEDS: Mometasone 200 MCG/Formoterol 5 MCG 120 PUFF INHALER INH SCH ×2 (07:38→18:37)
[2019-10-24] MEDS: Magnesium Oxide 400 MG TAB PO SCH ×2 (08:07→21:52)
[2019-10-24] MEDS: traMADol HCl 50 MG TAB PO PRN ×2 (08:07→21:52)
[2019-10-24] MEDS: Multivitamin W/ Minerals 1 TAB PO SCH (08:08)
[2019-10-24] MEDS: Fish Oil 1,000 MG CAP PO SCH (08:08)
[2019-10-24] MEDS: Carvedilol 6.25 MG TAB PO SCH ×2 (08:08→16:15)
[2019-10-24] MEDS: Furosemide 40 MG/4 ML VIAL SLOW IVP SCH (08:09)
[2019-10-24] MEDS: Calcium Carbonate 600 MG + Vit D TAB PO SCH (08:09)
[2019-10-24] MEDS: Docusate 100 MG CAP PO SCH ×2 (08:09→21:53)
[2019-10-24] MEDS: Ferrous Sulfate 325 MG TAB PO SCH ×2 (08:09→16:38)
[2019-10-24] MEDS: Gabapentin 100 MG CAP PO SCH ×3 (08:09→21:53)
[2019-10-24] MEDS: Polyethylene Glycol 3350 17 GM Packet PO SCH (08:11)
[2019-10-24] MEDS: Guaifenesin DM 100-10/5 ML UDCUP PO PRN (14:23)
[2019-10-24] MEDS: Nystatin Powder 15 GM BOT TOP PRN (14:26)
--- NOTE | 2019-10-24 14:56 | PDOC.HOSPP ---
- Subjective Encounter Date: 10/24/19 Subjective: Pt has no complaints. Will work with PT today. Has had a BM. - Objective Vital Signs & Weight: Vital Signs (12 hours) Temp Pulse Resp BP Pulse Ox 10/24/19 13:42 74 15 10/24/19 11:37 97.5 F L 77 15 121/67 97 10/24/19 07:38 73 15 10/24/19 07:29 73 15 10/24/19 07:25 98.7 F 68 13 117/57 L 94 L 10/24/19 04:00 96.1 F L 77 20 134/62 92 L Weight Admit Weight 239 lb 12.8 oz Weight 240 lb 4.8 oz Most Recent Monitor Data Heart Rate from ECG 102 NIBP 112/76 NIBP BP-Mean 88 Respiration from ECG 24 SpO2 99 I&O: 10/23/19 10/24/19 10/25/19 06:59 06:59 06:59 Intake Total 2100 1200 Output Total 2000 1550 Balance 100 -350 Result Diagrams: 10/24/19 04:15 10/24/19 04:15 Hospitalist ROS - Review of Systems Constitutional: denies: fever, chills, sweats, weakness, malaise, other Eyes: denies: pain, vision change, conjunctivae inflammation, eyelid inflammation, redness, other ENT: denies: ear pain, ear discharge, nose pain, nose discharge, nose congestion , mouth pain, mouth swelling, throat pain, throat swelling, other Respiratory: denies: cough, dry, shortness of breath, hemoptysis, SOB with excertion, pleuritic pain, sputum, wheezing, other Cardiovascular: denies: chest pain, palpitations, orthopnea, paroxysmal noc. dyspnea, edema, light headedness, other Gastrointestinal: denies: nausea, vomiting, abdominal pain, diarrhea, constipation, melena, hematochezia, other Genitourinary: denies: dysuria, frequency, incontinence, hematuria, retention, other Musculoskeletal: denies: neck pain, shoulder pain, arm pain, back pain, hand pain, leg pain, foot pain, other Skin: denies: rash, lesions, [place], bruising, other Neurological: denies: weakness, numbness, incoordination, change in speech, confusion, seizures, other - Medication Medications: Active Medications Generic Name Dose Route Start Last Admin Trade Name Freq PRN Reason Stop Dose Admin Acetaminophen 650 mg 10/14/19 02:56 10/16/19 04:12 Tylenol PO 650 mg Q4H PRN Administration Headache/Fever or Pain Albuterol/Ipratropium 3 ml 10/13/19 07:00 10/24/19 13:42 Duoneb NEB 3 ml [id number] LISA Administration Atorvastatin Calcium 40 mg 10/13/19 21:00 10/23/19 21:20 Lipitor PO 40 mg HS LISA Administration Benzonatate 100 mg 10/19/19 13:30 10/22/19 20:52 Tessalon PO 100 mg Q4H PRN Administration Cough Bismuth Subsalicylate 1 tab 10/16/19 13:36 10/16/19 14:02 Pepto Bismol PO 1 tab Q2H PRN Administration Diarrhea/Loose Stools Calcium/Vitamin D 1 tab 10/13/19 09:00 10/24/19 08:09 Caltrate 600 + Vit D PO 1 tab DAILY LISA Administration Carvedilol 6.25 mg 10/13/19 08:00 10/24/19 08:08 Coreg PO 6.25 mg BID-WM LISA Administration Docusate Sodium 100 mg 10/16/19 21:00 10/24/19 08:09 Colace PO Not Given BID LISA Ferrous Sulfate 325 mg 10/13/19 09:00 10/24/19 08:09 Feosol PO 325 mg 0900,1700 LISA Administration Fish Oil 1,000 mg 10/13/19 09:00 10/24/19 08:08 Fish Oil PO 1,000 mg DAILY LISA Administration Furosemide 40 mg 10/22/19 09:00 10/24/19 08:09 Lasix SLOW IVP 40 mg DAILY LISA Administration Gabapentin 100 mg 10/23/19 21:00 10/24/19 14:25 Neurontin PO 100 mg TID LISA Administration Guaifenesin/Dextromethorphan 15 ml 10/23/19 11:47 10/24/19 14:23 Robitussin Dm PO 15 ml Q4H PRN Administration Cough Hyoscyamine Sulfate 0.125 mg 10/23/19 11:47 10/23/19 15:22 Levsin Elixir PO 0.125 mg Q4H PRN Administration GI Cramping Iron/Minerals/Multivitamins 1 tab 10/13/19 09:00 10/24/19 08:08 Theragran M PO 1 tab DAILY LISA Administration Isosorbide Mononitrate 30 mg 10/18/19 09:00 10/24/19 08:08 Imdur Er PO 30 mg DAILY LISA Administration Levothyroxine Sodium 150 mcg 10/13/19 06:00 10/24/19 05:35 Synthroid PO 150 mcg 0600 LISA Administration Magnesium Oxide 400 mg 10/18/19 09:00 10/24/19 08:07 Magnesium Oxide PO 400 mg BID LISA Administration Mometasone Furoate/Formoterol Fumar 2 puff 10/14/19 18:30 10/24/19 07:38 Dulera 200 Mcg/5 Mcg Inhaler INH 2 puff BID-RT LISA Administration Morphine Sulfate 2 mg 10/13/19 18:05 10/20/19 17:34 Morphine SLOW IVP 2 mg Q2H PRN Administration Pain Nystatin 0 gm 10/15/19 10:56 10/24/19 14:26 Mycostatin Powder TOP 1 applic BID PRN Administration Topical Irritations Pantoprazole Sodium 40 mg 10/13/19 09:00 10/24/19 08:08 Protonix PO 40 mg DAILY LISA Administration Polyethylene Glycol 17 gm 10/22/19 09:00 10/24/19 08:11 Miralax PO Not Given DAILY LISA Pramipexole Dihydrochloride 0.5 mg 10/13/19 21:00 10/23/19 21:19 Mirapex PO 0.5 mg HS LISA Administration Prazosin HCl 1 mg 10/13/19 21:00 10/23/19 21:20 Minipress PO 1 mg HS LISA Administration Quetiapine Fumarate 300 mg 10/13/19 21:00 10/23/19 21:20 Seroquel PO 300 mg HS LISA Administration Senna 2 tab 10/21/19 21:00 10/23/19 21:21 Senokot PO Not Given HS LISA Sertraline HCl 100 mg 10/13/19 09:00 10/24/19 08:08 Zoloft PO 100 mg DAILY LISA Administration Tramadol HCl 50 mg 10/18/19 13:09 10/23/19 04:12 Ultram PO 50 mg Q6H PRN Administration Mild Pain (1-3) Tramadol HCl 100 mg 10/18/19 13:09 10/24/19 08:07 Ultram PO 100 mg Q6H PRN Administration Moderate Pain (4-6) Trazodone HCl 50 mg 10/13/19 21:00 10/23/19 21:20 Desyrel PO 50 mg HS LISA Administration - Exam General Appearance: awake alert Eye: PERRL ENT: normocephalic atraumatic, moist mucosa Neck: supple, symmetric, no JVD, no thyromegaly Heart: RRR, no murmur, no gallops, no rubs Respiratory: CTAB, no wheezes, no rales, no ronchi Gastrointestinal: soft, non-tender, non-distended, normal bowel sounds Extremities: no cyanosis, no clubbing, no edema Neurological: cranial nerve grossly intact, no weakness Musculoskeletal - other findings: L BKA noted Psychiatric: normal affect, A&O x 3 Hosp A/P (1) Status post above-knee amputation of left lower extremity Code(s): Z89.612 - ACQUIRED ABSENCE OF LEFT LEG ABOVE KNEE Status: Acute Plan: No acute issues. No pain. Cont PT/ OT. (2) Cardiomyopathy Code(s): I42.9 - CARDIOMYOPATHY, UNSPECIFIED Status: Chronic Qualifiers: Cardiomyopathy type: unspecified Qualified Code(s): I42.9 - Cardiomyopathy , unspecified Plan: Stable, cont med mgt. (3) CHERIE (acute kidney injury) Code(s): N17.9 - ACUTE KIDNEY FAILURE, UNSPECIFIED Status: Acute Plan: Improving, almost at normal levels. Monitor Cr. (4) CAD (coronary artery disease) Code(s): I25.10 - ATHSCL HEART DISEASE OF [place] CORONARY ARTERY W/O ANG PCTRS Status: Chronic Qualifiers: Coronary Disease-Associated Artery/Lesion type: [place] artery [place] vs. transplanted heart: [place] heart Associated angina: without angina Qualified Code(s): I25.10 - Atherosclerotic heart disease of [place] coronary artery without angina pectoris Plan: Stable, cont med mgt. (5) COPD (chronic obstructive pulmonary disease) Status: Chronic Qualifiers: COPD type: chronic bronchitis Plan: No acute issues. Cont nebs PRN. (6) Dyslipidemia Code(s): E78.5 - HYPERLIPIDEMIA, UNSPECIFIED Status: Chronic (7) HTN (hypertension) Code(s): I10 - ESSENTIAL (PRIMARY) HYPERTENSION Status: Chronic Qualifiers: Hypertension type: essential hypertension Qualified Code(s): I10 - Essential (primary) hypertension Plan: Controlled. Cont BP meds. (8) Constipation Code(s): K59.00 - CONSTIPATION, UNSPECIFIED Status: Acute Plan: Resolved. (9) Acute exacerbation of CHF (congestive heart failure) Code(s): I50.9 - HEART FAILURE, UNSPECIFIED Status: Acute Qualifiers: Heart failure type: systolic Qualified Code(s): I50.23 - Acute on chronic systolic (congestive) heart failure Plan: Improved. Cardiology following. Plan to add Entresto soon. - Plan PPx: SCDs anf Coumadin. CODE: FULL. Dispo: Cont current mgt.
[2019-10-24] MEDS ORDERED: Warfarin Sodium 3 MG TAB PO SCH (17:00)
--- NOTE | 2019-10-24 17:16 | PDOC.CPN ---
- Subjective Date: 10/24/19 Time: 17:14 Interval history: No new issues. No angina. - Review of Systems General: reports: fatigue. denies: fever/chills, weight/appetite/sleep changes , night sweats Respiratory: reports: exercise intolerance. denies: cough, congestion, shortness of breath Cardiovascular: denies: chest pain, palpitation, edema, paroxysmal nocturnal dyspnea, orthopnea Gastrointestinal: denies: nausea, vomiting, diarrhea, constipation, abd pain, GI bleeding Musculoskeletal: denies: pain, tenderness, stiffness, swelling, arthritis/ arthralgias Neurological: denies: numbness, syncope, seizure, weakness - Objective Allergies/Adverse Reactions: Allergies Allergy/AdvReac Type Severity Reaction Status Date / Time codeine Allergy Verified 10/13/19 03:16 Sulfa (Sulfonamide Allergy Verified 10/13/19 03:16 Antibiotics) Visit Medications: Current Medications Acetaminophen (Tylenol) 650 mg [place] Q4H PRN PRN Reason: Headache/Fever or Pain Acetaminophen (Tylenol) 650 mg PO Q4H PRN PRN Reason: Headache/Fever or Pain Last Admin: 10/16/19 04:12 Dose: 650 mg Albuterol/Ipratropium (Duoneb) 3 ml NEB [id number] LISA Last Admin: 10/24/19 13:42 Dose: 3 ml Albuterol/Ipratropium (Duoneb) 3 ml EZPAP Q2H PRN PRN Reason: SOB &/or Wheezing Atorvastatin Calcium (Lipitor) 40 mg PO HS [facility] Last Admin: 10/23/19 21:20 Dose: 40 mg Benzonatate (Tessalon) 100 mg PO Q4H PRN PRN Reason: Cough Last Admin: 10/22/19 20:52 Dose: 100 mg Bisacodyl (Dulcolax) 10 mg PO DAILYPRN PRN PRN Reason: Constipation Bisacodyl (Dulcolax) 10 mg [place] DAILYPRN PRN PRN Reason: Constipation Bismuth Subsalicylate (Pepto Bismol) 1 tab PO Q2H PRN PRN Reason: Diarrhea/Loose Stools Last Admin: 10/16/19 14:02 Dose: 1 tab Calcium/Vitamin D (Caltrate 600 + Vit D) 1 tab PO DAILY [facility] Last Admin: 10/24/19 08:09 Dose: 1 tab Carvedilol (Coreg) 6.25 mg PO BID[facility] Last Admin: 10/24/19 16:15 Dose: 6.25 mg Docusate Sodium (Colace) 100 mg PO BID [facility] Last Admin: 10/24/19 08:09 Dose: Not Given Fentanyl (Sublimaze) 25 mcg SLOW IVP Q2H PRN PRN Reason: Mild-Moderate Pain (1-5) Fentanyl (Sublimaze) 50 mcg SLOW IVP Q2H PRN PRN Reason: Moderate to Severe Pain (6-10) Ferrous Sulfate (Feosol) 325 mg PO 0900,1700 [facility] Last Admin: 10/24/19 16:38 Dose: Not Given Fish Oil (Fish Oil) 1,000 mg PO DAILY [facility] Last Admin: 10/24/19 08:08 Dose: 1,000 mg Furosemide (Lasix) 40 mg SLOW IVP DAILY [facility] Last Admin: 10/24/19 08:09 Dose: 40 mg Gabapentin (Neurontin) 100 mg PO TID [facility] Last Admin: 10/24/19 14:25 Dose: 100 mg Guaifenesin/Dextromethorphan (Robitussin Dm) 15 ml PO Q4H PRN PRN Reason: Cough Last Admin: 10/24/19 14:23 Dose: 15 ml Hyoscyamine Sulfate (Levsin Elixir) 0.125 mg PO Q4H PRN PRN Reason: GI Cramping Last Admin: 10/23/19 15:22 Dose: 0.125 mg Iron/Minerals/Multivitamins (Theragran M) 1 tab PO DAILY [facility] Last Admin: 10/24/19 08:08 Dose: 1 tab Isosorbide Mononitrate (Imdur Er) 30 mg PO DAILY [facility] Last Admin: 10/24/19 08:08 Dose: 30 mg Levothyroxine Sodium (Synthroid) 150 mcg PO 0600 [facility] Last Admin: 10/24/19 05:35 Dose: 150 mcg Magnesium Oxide (Magnesium Oxide) 400 mg PO BID [facility] Last Admin: 10/24/19 08:07 Dose: 400 mg Miscellaneous Medication (Pharmacy To Dose) 1 each PO PRN PRN PRN Reason: Pharmacy to dose Mometasone Furoate/Formoterol Fumar (Dulera 200 Mcg/5 Mcg Inhaler) 2 puff INH BID-RT [facility] Last Admin: 10/24/19 07:38 Dose: 2 puff Morphine Sulfate (Morphine) 2 mg SLOW IVP Q2H PRN PRN Reason: Pain Last Admin: 10/20/19 17:34 Dose: 2 mg Nitroglycerin (Nitrostat) 0.4 mg SL Q30M PRN PRN Reason: .CHEST PAIN Nystatin (Mycostatin Powder) 0 gm TOP BID PRN PRN Reason: Topical Irritations Last Admin: 10/24/19 14:26 Dose: 1 applic Pantoprazole Sodium (Protonix) 40 mg PO DAILY [facility] Last Admin: 10/24/19 08:08 Dose: 40 mg Polyethylene Glycol (Miralax) 17 gm PO DAILY [facility] Last Admin: 10/24/19 08:11 Dose: Not Given Pramipexole Dihydrochloride (Mirapex) 0.5 mg PO [facility] Last Admin: 10/23/19 21:19 Dose: 0.5 mg Prazosin HCl (Minipress) 1 mg PO [facility] Last Admin: 10/23/19 21:20 Dose: 1 mg Quetiapine Fumarate (Seroquel) 300 mg PO [facility] Last Admin: 10/23/19 21:20 Dose: 300 mg Senna (Senokot) 2 tab PO [facility] Last Admin: 10/23/19 21:21 Dose: Not Given Sertraline HCl (Zoloft) 100 mg PO DAILY [facility] Last Admin: 10/24/19 08:08 Dose: 100 mg Sterile Water (Bacteriostatic Water) 1 ml FS PRN PRN PRN Reason: RECONSTITUTION Tramadol HCl (Ultram) 50 mg PO Q6H PRN PRN Reason: Mild Pain (1-3) Last Admin: 10/23/19 04:12 Dose: 50 mg Tramadol HCl (Ultram) 100 mg PO Q6H PRN PRN Reason: Moderate Pain (4-6) Last Admin: 10/24/19 08:07 Dose: 100 mg Trazodone HCl (Desyrel) 50 mg PO [facility] Last Admin: 10/23/19 21:20 Dose: 50 mg Warfarin Sodium (Coumadin) 6 mg PO 1700 [facility] Last Admin: 10/24/19 16:16 Dose: 6 mg Vital Signs & Weight: Vital Signs Temp Pulse Pulse Pulse Resp BP BP 10/24/19 16:22 97.5 F L 75 18 0830/20 15:14 71 87 115/71 121/67 10/24/19 13:42 74 15 10/24/19 11:37 97.5 F L 77 15 10/24/19 07:38 73 15 10/24/19 07:29 73 15 10/24/19 07:25 98.7 F 68 13 BP Pulse Ox Pulse Ox 10/24/19 16:22 132/64 96 10/24/19 15:14 93 L 10/24/19 13:42 10/24/19 11:37 121/67 97 10/24/19 07:38 10/24/19 07:29 10/24/19 07:25 117/57 L 94 L Admit Weight 239 lb 12.8 oz Weight 240 lb 4.8 oz - Physical Exam General: alert & oriented x3 HEENT: mucus membranes moist Neck: supple neck Cardiac: irregularly regular Lungs: clear to auscultation Neuro: grossly intact Abdomen: active bowel sounds Extremities: no edema Skin: clear Musculoskeletal: no pain - Labs Result Diagrams: 10/24/19 04:15 10/24/19 04:15 - Telemetry Supraventricular conduction: atrial fibrillation - Assessment/Plan Assessment/Plan: 1. Dilated CM 2. S/P Mechanical mitral valve 3. CAD s/p multiple stents done with Dr. Pham at [facility] 4. Hodgkins Lymphoma in remission 5. Persistent afib 6. LV function at 20-25% on echo prior to amputation 7. PVD s/p left leg BKA. 8. Chronic anticoagulation on coumain PLAN: - Continue coumadin for both stroke prophylaxis from afib and mechanical valve. - EF remains reduced at 20-25% - We spoke about lifevest and she agrees. - She would liuke to have any LHC done buy his primary nursery supervisor Dr. Pham at [facility]. - Continue BB and Imdur - Will add Entresto as renal function reasonable. Will stop imdur to make space BP appiah. - Will place order for lifevest. - Will likely need placement.
[2019-10-24] MEDS: Atorvastatin Calcium 40 MG TAB PO SCH (21:53)
[2019-10-24] MEDS: Prazosin HCl 1 MG CAP PO SCH (21:53)
[2019-10-24] MEDS: traZODone HCl 50 MG TAB PO SCH (21:53)
[2019-10-24] MEDS: Pramipexole Di-HCl 0.25 MG TAB PO SCH (21:53)
[2019-10-24] MEDS: Senokot 8.6 MG TAB PO SCH (21:53)
[2019-10-24] MEDS: Benzonatate 100 MG CAP PO PRN (23:28)
[2019-10-25] MEDS: Levothyroxine 150 MCG TAB PO SCH (05:09)
[2019-10-25 05:11] LABS: Prothrombin Time 39.3 sec (12.0-14.7)
[2019-10-25 05:13] LABS: Anion Gap 14 mmol/L (10-20); BUN (Urea Nitrogen) 43 mg/dL (9.8-20.1); Calc. Creatinine Clearance 56 mL/min (70-130); Calcium 8.5 mg/dL (7.8-10.44); Carbon Dioxide 28 mmol/L (23-31); Chloride 92 mmol/L (98-107); Estimated GFR-MDRD 36; Glucose 89 mg/dL (83-110); Potassium 3.9 mmol/L (3.5-5.1); Sodium 130 mmol/L (136-145)
[2019-10-25 05:15] LABS: INR-International Normal Ratio 4.1
[2019-10-25 05:39] LABS: Band 13 % (5-11); Hemoglobin 11.1 g/dL (12.0-16.0); Lymphocytes 13 % (21-51); MDiff Complete? YES; Mean Corpuscular HGB CONC 33.2 g/dL (32.0-36.0); Mean Corpuscular Hemoglobin 30.7 pg (27.0-31.0); Mean Corpuscular Volume 92.6 fL (78.0-98.0); Mean Platelet Volume 8.6 fL (7.4-10.4); Monocytes 4 % (0-10); Myelocyte 5 % (0-0); Neutrophil 65 % (42-75); Platelet Count 171 thou/uL (130-400); RBC Distribution Width 16.8 % (11.5-14.5); Red Blood Cell (RBC) Count 3.62 mill/uL (4.20-5.40)
[2019-10-25] MEDS: Mometasone 200 MCG/Formoterol 5 MCG 120 PUFF INHALER INH SCH ×2 (07:48→19:02)
[2019-10-25] MEDS: Furosemide 40 MG/4 ML VIAL SLOW IVP SCH (07:49)
[2019-10-25] MEDS: Calcium Carbonate 600 MG + Vit D TAB PO SCH (07:50)
[2019-10-25] MEDS: Docusate 100 MG CAP PO SCH ×2 (07:50→21:51)
[2019-10-25] MEDS: Polyethylene Glycol 3350 17 GM Packet PO SCH (07:50)
[2019-10-25] MEDS: Fish Oil 1,000 MG CAP PO SCH (07:50)
[2019-10-25] MEDS: Magnesium Oxide 400 MG TAB PO SCH ×2 (07:51→21:52)
[2019-10-25] MEDS: Multivitamin W/ Minerals 1 TAB PO SCH (07:51)
[2019-10-25] MEDS: Gabapentin 100 MG CAP PO SCH ×3 (07:51→21:50)
[2019-10-25] MEDS: Carvedilol 6.25 MG TAB PO SCH ×2 (07:51→16:39)
[2019-10-25] MEDS: Ferrous Sulfate 325 MG TAB PO SCH ×2 (07:52→16:39)
[2019-10-25] MEDS: Benzonatate 100 MG CAP PO PRN ×2 (08:01→21:50)
--- NOTE | 2019-10-25 10:13 | PDOC.HOSPP ---
- Subjective Encounter Date: 10/25/19 Encounter Time: 10:09 Subjective: alert, appropriate. no distress - Objective Vital Signs & Weight: Vital Signs (12 hours) Temp Pulse Resp BP Pulse Ox 10/25/19 07:49 74 14 10/25/19 07:44 97.6 F 72 18 116/55 L 97 10/25/19 04:43 93 L 10/25/19 04:00 97.9 F 96 20 120/58 L 96 Weight Admit Weight 239 lb 12.8 oz Weight 239 lb 8 oz Most Recent Monitor Data Heart Rate from ECG 102 NIBP 112/76 NIBP BP-Mean 88 Respiration from ECG 24 SpO2 99 I&O: 10/24/19 10/25/19 10/26/19 06:59 06:59 06:59 Intake Total 1200 1200 Output Total 1550 2040 Balance -350 -840 Result Diagrams: 10/25/19 04:31 10/25/19 04:31 Hospitalist ROS - Medication Medications: Active Medications Generic Name Dose Route Start Last Admin Trade Name Madiq PRN Reason Stop Dose Admin Acetaminophen 650 mg 10/14/19 02:56 10/16/19 04:12 Tylenol PO 650 mg Q4H PRN Administration Headache/Fever or Pain Albuterol/Ipratropium 3 ml 10/13/19 07:00 10/25/19 07:49 Duoneb NEB 3 ml [id number] LISA Administration Atorvastatin Calcium 40 mg 10/13/19 21:00 10/24/19 21:53 Lipitor PO 40 mg HS LISA Administration Benzonatate 100 mg 10/19/19 13:30 10/25/19 08:01 Tessalon PO 100 mg Q4H PRN Administration Cough Bismuth Subsalicylate 1 tab 10/16/19 13:36 10/16/19 14:02 Pepto Bismol PO 1 tab Q2H PRN Administration Diarrhea/Loose Stools Calcium/Vitamin D 1 tab 10/13/19 09:00 10/25/19 07:50 Caltrate 600 + Vit D PO 1 tab DAILY LISA Administration Carvedilol 6.25 mg 10/13/19 08:00 10/25/19 07:51 Coreg PO 6.25 mg BID-WM LISA Administration Docusate Sodium 100 mg 10/16/19 21:00 10/25/19 07:50 Colace PO 100 mg BID LISA Administration Ferrous Sulfate 325 mg 10/13/19 09:00 10/25/19 07:52 Feosol PO 325 mg 0900,1700 LISA Administration Fish Oil 1,000 mg 10/13/19 09:00 10/25/19 07:50 Fish Oil PO 1,000 mg DAILY LISA Administration Furosemide 40 mg 10/22/19 09:00 10/25/19 07:49 Lasix SLOW IVP 40 mg DAILY LISA Administration Gabapentin 100 mg 10/23/19 21:00 10/25/19 07:51 Neurontin PO 100 mg TID LISA Administration Guaifenesin/Dextromethorphan 15 ml 10/23/19 11:47 10/24/19 14:23 Robitussin Dm PO 15 ml Q4H PRN Administration Cough Hyoscyamine Sulfate 0.125 mg 10/23/19 11:47 10/23/19 15:22 Levsin Elixir PO 0.125 mg Q4H PRN Administration GI Cramping Iron/Minerals/Multivitamins 1 tab 10/13/19 09:00 10/25/19 07:51 Theragran M PO 1 tab DAILY [facility] Administration Levothyroxine Sodium 150 mcg 10/13/19 06:00 10/25/19 05:09 Synthroid PO 150 mcg 0600 LISA Administration Magnesium Oxide 400 mg 10/18/19 09:00 10/25/19 07:51 Magnesium Oxide PO 400 mg BID LISA Administration Mometasone Furoate/Formoterol Fumar 2 puff 10/14/19 18:30 10/25/19 07:48 Dulera 200 Mcg/5 Mcg Inhaler INH 2 puff BID-RT LISA Administration Morphine Sulfate 2 mg 10/13/19 18:05 10/20/19 17:34 Morphine SLOW IVP 2 mg Q2H PRN Administration Pain Nystatin 0 gm 10/15/19 10:56 10/24/19 14:26 Mycostatin Powder TOP 1 applic BID PRN Administration Topical Irritations Pantoprazole Sodium 40 mg 10/13/19 09:00 10/25/19 07:51 Protonix PO 40 mg DAILY LISA Administration Polyethylene Glycol 17 gm 10/22/19 09:00 10/25/19 07:50 Miralax PO 17 gm DAILY LISA Administration Pramipexole Dihydrochloride 0.5 mg 10/13/19 21:00 10/24/19 21:53 Mirapex PO 0.5 mg HS LISA Administration Prazosin HCl 1 mg 10/13/19 21:00 10/24/19 21:53 Minipress PO 1 mg HS LISA Administration Quetiapine Fumarate 300 mg 10/13/19 21:00 10/24/19 21:53 Seroquel PO 300 mg HS LISA Administration Sacubitril/Valsartan 1 tab 10/24/19 21:00 10/25/19 07:52 Entresto 24 Mg-26 Mg Tablet PO 1 tab BID LISA Administration Senna 2 tab 10/21/19 21:00 10/24/19 21:53 Senokot PO Not Given HS LISA Sertraline HCl 100 mg 10/13/19 09:00 10/25/19 07:52 Zoloft PO 100 mg DAILY LISA Administration Tramadol HCl 50 mg 10/18/19 13:09 10/23/19 04:12 Ultram PO 50 mg Q6H PRN Administration Mild Pain (1-3) Tramadol HCl 100 mg 10/18/19 13:09 10/24/19 21:52 Ultram PO 100 mg Q6H PRN Administration Moderate Pain (4-6) Trazodone HCl 50 mg 10/13/19 21:00 10/24/19 21:53 Desyrel PO 50 mg HS LISA Administration - Exam General Appearance: awake alert Neck: no JVD Heart: RRR Respiratory - other findings: coarse bilat with rhonchi Gastrointestinal: soft, non-tender, normal bowel sounds Extremities: 1+ LE edema Hosp A/P (1) Atrial fibrillation Code(s): I48.91 - UNSPECIFIED ATRIAL FIBRILLATION Status: Acute Qualifiers: Atrial fibrillation type: paroxysmal Qualified Code(s): I48.0 - Paroxysmal atrial fibrillation (2) Ventricular tachycardia Code(s): I47.2 - VENTRICULAR TACHYCARDIA Status: Acute (3) Chronic anticoagulation Code(s): Z79.01 - HALF-WAY (CURRENT) USE OF ANTICOAGULANTS Status: Chronic (4) Cardiomyopathy Code(s): I42.9 - CARDIOMYOPATHY, UNSPECIFIED Status: Chronic Qualifiers: Cardiomyopathy type: unspecified Qualified Code(s): I42.9 - Cardiomyopathy , unspecified (5) Chronic respiratory failure with hypoxia Code(s): J96.11 - CHRONIC RESPIRATORY FAILURE WITH HYPOXIA Status: Chronic (6) Elevated troponin Code(s): R79.89 - OTHER SPECIFIED ABNORMAL FINDINGS OF BLOOD CHEMISTRY Status : Acute (7) CAD (coronary artery disease) Code(s): I25.10 - ATHSCL HEART DISEASE OF [place] CORONARY ARTERY W/O ANG PCTRS Status: Chronic Qualifiers: Coronary Disease-Associated Artery/Lesion type: [place] artery [place] vs. transplanted heart: [place] heart Associated angina: without angina Qualified Code(s): I25.10 - Atherosclerotic heart disease of [place] coronary artery without angina pectoris (8) CKD (chronic kidney disease), stage III Code(s): N18.3 - CHRONIC KIDNEY DISEASE, STAGE 3 (MODERATE) Status: Chronic (9) COPD (chronic obstructive pulmonary disease) Status: Chronic Qualifiers: COPD type: chronic bronchitis (10) Dyslipidemia Code(s): E78.5 - HYPERLIPIDEMIA, UNSPECIFIED Status: Chronic (11) H/O mitral valve replacement with mechanical valve Code(s): Z95.2 - PRESENCE OF PROSTHETIC HEART VALVE Status: Chronic (12) HTN (hypertension) Code(s): I10 - ESSENTIAL (PRIMARY) HYPERTENSION Status: Chronic Qualifiers: Hypertension type: essential hypertension Qualified Code(s): I10 - Essential (primary) hypertension (13) Supratherapeutic INR Code(s): R79.1 - ABNORMAL COAGULATION PROFILE Status: Resolved - Plan cont coreg adjust warfarin discuss with Cardiology
[2019-10-25] MEDS: Morphine 2 MG/ML VIAL SLOW IVP PRN (13:30)
--- NOTE | 2019-10-25 14:17 | PDOC.CPN ---
- Subjective Date: 10/25/19 Time: 14:16 Interval history: No chest pain. Still SOB. Constipation. - Review of Systems General: denies: fever/chills, weight/appetite/sleep changes, night sweats, fatigue Respiratory: reports: shortness of breath. denies: cough, congestion, exercise intolerance Cardiovascular: denies: chest pain, palpitation, edema, paroxysmal nocturnal dyspnea, orthopnea Gastrointestinal: reports: constipation. denies: nausea, vomiting, diarrhea, abd pain, GI bleeding Musculoskeletal: denies: pain, tenderness, stiffness, swelling, arthritis/ arthralgias Neurological: denies: numbness, syncope, seizure, weakness - Objective Allergies/Adverse Reactions: Allergies Allergy/AdvReac Type Severity Reaction Status Date / Time codeine Allergy Verified 10/13/19 03:16 Sulfa (Sulfonamide Allergy Verified 10/13/19 03:16 Antibiotics) Visit Medications: Current Medications Acetaminophen (Tylenol) 650 mg [place] Q4H PRN PRN Reason: Headache/Fever or Pain Acetaminophen (Tylenol) 650 mg PO Q4H PRN PRN Reason: Headache/Fever or Pain Last Admin: 10/16/19 04:12 Dose: 650 mg Albuterol/Ipratropium (Duoneb) 3 ml NEB [id number] [facility] Last Admin: 10/25/19 07:49 Dose: 3 ml Albuterol/Ipratropium (Duoneb) 3 ml EZPAP Q2H PRN PRN Reason: SOB &/or Wheezing Atorvastatin Calcium (Lipitor) 40 mg PO HS [facility] Last Admin: 10/24/19 21:53 Dose: 40 mg Benzonatate (Tessalon) 100 mg PO Q4H PRN PRN Reason: Cough Last Admin: 10/25/19 08:01 Dose: 100 mg Bisacodyl (Dulcolax) 10 mg PO DAILYPRN PRN PRN Reason: Constipation Bisacodyl (Dulcolax) 10 mg VA DAILYPRN PRN PRN Reason: Constipation Bismuth Subsalicylate (Pepto Bismol) 1 tab PO Q2H PRN PRN Reason: Diarrhea/Loose Stools Last Admin: 10/16/19 14:02 Dose: 1 tab Calcium/Vitamin D (Caltrate 600 + Vit D) 1 tab PO DAILY [facility] Last Admin: 10/25/19 07:50 Dose: 1 tab Carvedilol (Coreg) 6.25 mg PO BID-WM [facility] Last Admin: 10/25/19 07:51 Dose: 6.25 mg Docusate Sodium (Colace) 100 mg PO BID [facility] Last Admin: 10/25/19 07:50 Dose: 100 mg Fentanyl (Sublimaze) 25 mcg SLOW IVP Q2H PRN PRN Reason: Mild-Moderate Pain (1-5) Fentanyl (Sublimaze) 50 mcg SLOW IVP Q2H PRN PRN Reason: Moderate to Severe Pain (6-10) Ferrous Sulfate (Feosol) 325 mg PO 0900,1700 [facility] Last Admin: 10/25/19 07:52 Dose: 325 mg Fish Oil (Fish Oil) 1,000 mg PO DAILY [facility] Last Admin: 10/25/19 07:50 Dose: 1,000 mg Furosemide (Lasix) 40 mg SLOW IVP DAILY [facility] Last Admin: 10/25/19 07:49 Dose: 40 mg Gabapentin (Neurontin) 100 mg PO TID [facility] Last Admin: 10/25/19 13:30 Dose: 100 mg Guaifenesin/Dextromethorphan (Robitussin Dm) 15 ml PO Q4H PRN PRN Reason: Cough Last Admin: 10/24/19 14:23 Dose: 15 ml Hyoscyamine Sulfate (Levsin Elixir) 0.125 mg PO Q4H PRN PRN Reason: GI Cramping Last Admin: 10/23/19 15:22 Dose: 0.125 mg Iron/Minerals/Multivitamins (Theragran M) 1 tab PO DAILY [facility] Last Admin: 10/25/19 07:51 Dose: 1 tab Levothyroxine Sodium (Synthroid) 150 mcg PO 0600 [facility] Last Admin: 10/25/19 05:09 Dose: 150 mcg Magnesium Oxide (Magnesium Oxide) 400 mg PO BID [facility] Last Admin: 10/25/19 07:51 Dose: 400 mg Miscellaneous Medication (Pharmacy To Dose) 1 each PO PRN PRN PRN Reason: Pharmacy to dose Mometasone Furoate/Formoterol Fumar (Dulera 200 Mcg/5 Mcg Inhaler) 2 puff INH BID-RT [facility] Last Admin: 10/25/19 07:48 Dose: 2 puff Morphine Sulfate (Morphine) 2 mg SLOW IVP Q2H PRN PRN Reason: Pain Last Admin: 10/25/19 13:30 Dose: 2 mg Nitroglycerin (Nitrostat) 0.4 mg SL Q30M PRN PRN Reason: .CHEST PAIN Nystatin (Mycostatin Powder) 0 gm TOP BID PRN PRN Reason: Topical Irritations Last Admin: 10/24/19 14:26 Dose: 1 applic Pantoprazole Sodium (Protonix) 40 mg PO DAILY [facility] Last Admin: 10/25/19 07:51 Dose: 40 mg Polyethylene Glycol (Miralax) 17 gm PO DAILY [facility] Last Admin: 10/25/19 07:50 Dose: 17 gm Pramipexole Dihydrochloride (Mirapex) 0.5 mg PO [facility] Last Admin: 10/24/19 21:53 Dose: 0.5 mg Prazosin HCl (Minipress) 1 mg PO [facility] Last Admin: 10/24/19 21:53 Dose: 1 mg Quetiapine Fumarate (Seroquel) 300 mg PO [facility] Last Admin: 10/24/19 21:53 Dose: 300 mg Sacubitril/Valsartan (Entresto 24 Mg-26 Mg Tablet) 1 tab PO BID [facility] Last Admin: 10/25/19 07:52 Dose: 1 tab Senna (Senokot) 2 tab PO [facility] Last Admin: 10/24/19 21:53 Dose: Not Given Sertraline HCl (Zoloft) 100 mg PO DAILY [facility] Last Admin: 10/25/19 07:52 Dose: 100 mg Sterile Water (Bacteriostatic Water) 1 ml FS PRN PRN PRN Reason: RECONSTITUTION Tramadol HCl (Ultram) 50 mg PO Q6H PRN PRN Reason: Mild Pain (1-3) Last Admin: 10/23/19 04:12 Dose: 50 mg Tramadol HCl (Ultram) 100 mg PO Q6H PRN PRN Reason: Moderate Pain (4-6) Last Admin: 10/24/19 21:52 Dose: 100 mg Trazodone HCl (Desyrel) 50 mg PO [facility] Last Admin: 10/24/19 21:53 Dose: 50 mg Warfarin Sodium (Coumadin) 6 mg PO 1700 [facility] Vital Signs & Weight: Vital Signs Temp Pulse Resp BP Pulse Ox 10/25/19 07:49 74 14 08/31/20 07:44 97.6 F 72 18 116/55 L 97 10/25/19 04:43 93 L 10/25/19 04:00 97.9 F 96 20 120/58 L 96 Admit Weight 239 lb 12.8 oz Weight 239 lb 8 oz - Physical Exam General: alert & oriented x3 HEENT: mucus membranes moist Neck: supple neck Cardiac: irregularly regular Lungs: normal breath sounds Neuro: grossly intact Abdomen: active bowel sounds Extremities: no edema Skin: clear Musculoskeletal: no pain - Labs Result Diagrams: 10/25/19 04:31 10/25/19 04:31 - Telemetry Supraventricular conduction: atrial fibrillation - Assessment/Plan Assessment/Plan: 1. Dilated CM 2. S/P Mechanical mitral valve 3. CAD s/p multiple stents done with Dr. Pham at [facility] 4. Hodgkins Lymphoma in remission 5. Persistent afib 6. LV function at 20-25% on echo yesterday. 7. PVD s/p left leg BKA. 8. Chronic anticoagulation on coumadin 9. Supratherapeutic INR. PLAN: - Continue coumadin for both stroke prophylaxis from afib and mechanical valve. - EF remains reduced at 20-25% - We spoke about [facility] and she agrees. - She has changed her mind. She wants to have everything done here at [facility]. - Continue BB and Entresto. - [facility]. - Will likely need placement. - Currently cannot lay flat. Will do IV lasix and diurese. - Will plan on discharge eventually and bring her back in 2-4 weeks for outpatient [facility] to evaluate for ischemia.
[2019-10-25] MEDS: Senokot 8.6 MG TAB PO SCH (21:51)
[2019-10-25] MEDS: traZODone HCl 50 MG TAB PO SCH (21:52)
[2019-10-25] MEDS: Atorvastatin Calcium 40 MG TAB PO SCH (21:52)
[2019-10-25] MEDS: Pramipexole Di-HCl 0.25 MG TAB PO SCH (21:53)
[2019-10-25] MEDS: Prazosin HCl 1 MG CAP PO SCH (21:54)
[2019-10-26 05:34] LABS: INR-International Normal Ratio 3.7; Prothrombin Time 36.3 sec (12.0-14.7)
[2019-10-26] MEDS: Levothyroxine 150 MCG TAB PO SCH (05:57)
[2019-10-26] MEDS ORDERED: Furosemide 40 MG/4 ML VIAL SLOW IVP SCH (06:00)
[2019-10-26] MEDS: Mometasone 200 MCG/Formoterol 5 MCG 120 PUFF INHALER INH SCH ×2 (06:49→19:28)
--- NOTE | 2019-10-26 08:03 | PDOC.HOSPP ---
- Subjective Encounter Date: 10/26/19 Encounter Time: 07:54 Subjective: still sob with minimal exertion - Objective Vital Signs & Weight: Vital Signs (12 hours) Temp Pulse Resp BP Pulse Ox 10/26/19 06:51 67 16 96 10/26/19 06:49 67 16 96 10/26/19 03:16 98.0 F 74 16 96/60 94 L 10/25/19 23:32 74 105/53 L 10/25/19 21:51 96 10/25/19 20:00 97.6 F 63 18 97/55 L 96 Weight Admit Weight 239 lb 12.8 oz Weight 243 lb Most Recent Monitor Data Heart Rate from ECG 102 NIBP 112/76 NIBP BP-Mean 88 Respiration from ECG 24 SpO2 99 I&O: 10/25/19 10/26/19 10/27/19 06:59 06:59 06:59 Intake Total 1200 1030 Output Total 2040 500 Balance -840 530 Result Diagrams: 10/25/19 04:31 10/25/19 04:31 Hospitalist ROS - Medication Medications: Active Medications Generic Name Dose Route Start Last Admin Trade Name Freq PRN Reason Stop Dose Admin Acetaminophen 650 mg 10/14/19 02:56 10/16/19 04:12 Tylenol PO 650 mg Q4H PRN Administration Headache/Fever or Pain Albuterol/Ipratropium 3 ml 10/13/19 07:00 10/26/19 06:51 Duoneb NEB 3 ml [id number] [facility] Administration Atorvastatin Calcium 40 mg 10/13/19 21:00 10/25/19 21:52 Lipitor PO 40 mg HS L[facility] Administration Benzonatate 100 mg 10/19/19 13:30 10/25/19 21:50 Tessalon PO 100 mg Q4H PRN Administration Cough Bismuth Subsalicylate 1 tab 10/16/19 13:36 10/16/19 14:02 Pepto Bismol PO 1 tab Q2H PRN Administration Diarrhea/Loose Stools Calcium/Vitamin D 1 tab 10/13/19 09:00 10/25/19 07:50 Caltrate 600 + Vit D PO 1 tab DAILY [facility] Administration Carvedilol 6.25 mg 10/13/19 08:00 10/25/19 16:39 Coreg PO 6.25 mg BID-WM [facility] Administration Docusate Sodium 100 mg 10/16/19 21:00 10/25/19 21:51 Colace PO 100 mg BID [facility] Administration Ferrous Sulfate 325 mg 10/13/19 09:00 10/25/19 16:39 Feosol PO Not Given 0900,1700 [facility] Fish Oil 1,000 mg 10/13/19 09:00 10/25/19 07:50 Fish Oil PO 1,000 mg DAILY [facility] Administration Furosemide 40 mg 10/26/19 06:00 10/26/19 05:58 Lasix SLOW IVP 40 mg 0600,1400 [facility] Administration Gabapentin 100 mg 10/23/19 21:00 10/25/19 21:50 Neurontin PO 100 mg TID [facility] Administration Guaifenesin/Dextromethorphan 15 ml 10/23/19 11:47 10/24/19 14:23 Robitussin Dm PO 15 ml Q4H PRN Administration Cough Hyoscyamine Sulfate 0.125 mg 10/23/19 11:47 10/23/19 15:22 Levsin Elixir PO 0.125 mg Q4H PRN Administration GI Cramping Iron/Minerals/Multivitamins 1 tab 10/13/19 09:00 10/25/19 07:51 Theragran M PO 1 tab DAILY [facility] Administration Levothyroxine Sodium 150 mcg 10/13/19 06:00 10/26/19 05:57 Synthroid PO 150 mcg 0600 [facility] Administration Magnesium Oxide 400 mg 10/18/19 09:00 10/25/19 21:52 Magnesium Oxide PO 400 mg BID [facility] Administration Mometasone Furoate/Formoterol Fumar 2 puff 10/14/19 18:30 10/26/19 06:49 Dulera 200 Mcg/5 Mcg Inhaler INH 2 puff BID-RT [facility] Administration Morphine Sulfate 2 mg 10/13/19 18:05 10/25/19 13:30 Morphine SLOW IVP 2 mg Q2H PRN Administration Pain Nystatin 0 gm 10/15/19 10:56 10/24/19 14:26 Mycostatin Powder TOP 1 applic BID PRN Administration Topical Irritations Pantoprazole Sodium 40 mg 10/13/19 09:00 10/25/19 07:51 Protonix PO 40 mg DAILY [facility] Administration Polyethylene Glycol 17 gm 10/22/19 09:00 10/25/19 07:50 Miralax PO 17 gm DAILY [facility] Administration Pramipexole Dihydrochloride 0.5 mg 10/13/19 21:00 10/25/19 21:53 Mirapex PO 0.5 mg HS [facility] Administration Prazosin HCl 1 mg 10/13/19 21:00 10/25/19 21:54 Minipress PO 1 mg HS LISA Administration Quetiapine Fumarate 300 mg 10/13/19 21:00 10/25/19 21:52 Seroquel PO 300 mg HS [facility] Administration Sacubitril/Valsartan 1 tab 10/24/19 21:00 10/25/19 21:51 Entresto 24 Mg-26 Mg Tablet PO 1 tab BID LISA Administration Senna 2 tab 10/21/19 21:00 10/25/19 21:51 Senokot PO 2 tab HS [facility] Administration Sertraline HCl 100 mg 10/13/19 09:00 10/25/19 07:52 Zoloft PO 100 mg DAILY [facility] Administration Tramadol HCl 50 mg 10/18/19 13:09 10/23/19 04:12 Ultram PO 50 mg Q6H PRN Administration Mild Pain (1-3) Tramadol HCl 100 mg 10/18/19 13:09 10/24/19 21:52 Ultram PO 100 mg Q6H PRN Administration Moderate Pain (4-6) Trazodone HCl 50 mg 10/13/19 21:00 10/25/19 21:52 Desyrel PO 50 mg HS LISA Administration - Exam General Appearance: awake alert Neck: JVD Heart: irregular, II/IV Respiratory: rales, rhonchi Gastrointestinal: soft, non-tender, normal bowel sounds Extremities: 2+ LE edema Hosp A/P (1) Atrial fibrillation Code(s): I48.91 - UNSPECIFIED ATRIAL FIBRILLATION Status: Acute Qualifiers: Atrial fibrillation type: paroxysmal Qualified Code(s): I48.0 - Paroxysmal atrial fibrillation (2) Ventricular tachycardia Code(s): I47.2 - VENTRICULAR TACHYCARDIA Status: Acute (3) Chronic anticoagulation Code(s): Z79.01 - SCHOOL T[employer]AS[employer]ER (CURRENT) USE OF ANTICOAGULANTS Status: Chronic (4) Cardiomyopathy Code(s): I42.9 - CARDIOMYOPATHY, UNSPECIFIED Status: Chronic Qualifiers: Cardiomyopathy type: unspecified Qualified Code(s): I42.9 - Cardiomyopathy , unspecified (5) Chronic respiratory failure with hypoxia Code(s): J96.11 - CHRONIC RESPIRATORY FAILURE WITH HYPOXIA Status: Chronic (6) Elevated troponin Code(s): R79.89 - OTHER SPECIFIED ABNORMAL FINDINGS OF BLOOD CHEMISTRY Status : Acute (7) CAD (coronary artery disease) Code(s): I25.10 - ATHSCL HEART DISEASE OF [place] CORONARY ARTERY W/O ANG PCTRS Status: Chronic Qualifiers: Coronary Disease-Associated Artery/Lesion type: [place] artery [place] vs. transplanted heart: [place] heart Associated angina: without angina Qualified Code(s): I25.10 - Atherosclerotic heart disease of [place] coronary artery without angina pectoris (8) CKD (chronic kidney disease), stage III Code(s): N18.3 - CHRONIC KIDNEY DISEASE, STAGE 3 (MODERATE) Status: Chronic (9) COPD (chronic obstructive pulmonary disease) Status: Chronic Qualifiers: COPD type: chronic bronchitis (10) Dyslipidemia Code(s): E78.5 - HYPERLIPIDEMIA, UNSPECIFIED Status: Chronic (11) H/O mitral valve replacement with mechanical valve Code(s): Z95.2 - PRESENCE OF PROSTHETIC HEART VALVE Status: Chronic (12) HTN (hypertension) Code(s): I10 - ESSENTIAL (PRIMARY) HYPERTENSION Status: Chronic Qualifiers: Hypertension type: essential hypertension Qualified Code(s): I10 - Essential (primary) hypertension - Plan cont coreg, entresto, iv diuresis warfarin, PT/INR now therapeutic discuss with Cardiology CM for SNF placement
[2019-10-26] MEDS: Ferrous Sulfate 325 MG TAB PO SCH ×2 (09:11→18:29)
[2019-10-26] MEDS: Polyethylene Glycol 3350 17 GM Packet PO SCH (09:11)
[2019-10-26] MEDS: Benzonatate 100 MG CAP PO PRN (09:12)
[2019-10-26] MEDS: Magnesium Oxide 400 MG TAB PO SCH ×2 (09:12→20:28)
[2019-10-26] MEDS: Calcium Carbonate 600 MG + Vit D TAB PO SCH (09:12)
[2019-10-26] MEDS: Multivitamin W/ Minerals 1 TAB PO SCH (09:12)
[2019-10-26] MEDS: Docusate 100 MG CAP PO SCH ×2 (09:12→20:29)
[2019-10-26] MEDS: Fish Oil 1,000 MG CAP PO SCH (09:12)
[2019-10-26] MEDS: Gabapentin 100 MG CAP PO SCH ×3 (09:12→20:29)
[2019-10-26] MEDS: Carvedilol 6.25 MG TAB PO SCH (10:32)
[2019-10-26] MEDS: Furosemide 40 MG/4 ML VIAL SLOW IVP SCH (14:34)
[2019-10-26] MEDS ORDERED: Warfarin Sodium 3 MG TAB PO SCH (17:00)
[2019-10-26] MEDS ORDERED: Warfarin Sodium 5 MG TAB PO SCH (17:00)
--- NOTE | 2019-10-26 17:04 | PDOC.CPN ---
- Subjective Date: 10/26/19 Time: 17:01 Interval history: She is more SOB today. Cannot talk in [facility] without having to catch her breath. Cannot lay flat. Has not been urinating much with IV lasix. - Review of Systems General: denies: fever/chills, weight/appetite/sleep changes, night sweats, fatigue Respiratory: denies: cough, congestion, shortness of breath, exercise intolerance Cardiovascular: denies: chest pain, palpitation, edema, paroxysmal nocturnal dyspnea, orthopnea Gastrointestinal: denies: nausea, vomiting, diarrhea, constipation, abd pain, GI bleeding Musculoskeletal: denies: pain, tenderness, stiffness, swelling, arthritis/ arthralgias Neurological: denies: numbness, syncope, seizure, weakness - Objective Allergies/Adverse Reactions: Allergies Allergy/AdvReac Type Severity Reaction Status Date / Time codeine Allergy Verified 10/13/19 03:16 Sulfa (Sulfonamide Allergy Verified 10/13/19 03:16 Antibiotics) Visit Medications: Current Medications Acetaminophen (Tylenol) 650 mg [place] Q4H PRN PRN Reason: Headache/Fever or Pain Acetaminophen (Tylenol) 650 mg PO Q4H PRN PRN Reason: Headache/Fever or Pain Last Admin: 10/16/19 04:12 Dose: 650 mg Albuterol/Ipratropium (Duoneb) 3 ml NEB [id number] [facility] Last Admin: 10/26/19 12:00 Dose: 3 ml Albuterol/Ipratropium (Duoneb) 3 ml EZPAP Q2H PRN PRN Reason: SOB &/or Wheezing Atorvastatin Calcium (Lipitor) 40 mg PO HS [facility] Last Admin: 10/25/19 21:52 Dose: 40 mg Benzonatate (Tessalon) 100 mg PO Q4H PRN PRN Reason: Cough Last Admin: 10/26/19 09:12 Dose: 100 mg Bisacodyl (Dulcolax) 10 mg PO DAILYPRN PRN PRN Reason: Constipation Bisacodyl (Dulcolax) 10 mg [place] DAILYPRN PRN PRN Reason: Constipation Bismuth Subsalicylate (Pepto Bismol) 1 tab PO Q2H PRN PRN Reason: Diarrhea/Loose Stools Last Admin: 10/16/19 14:02 Dose: 1 tab Calcium/Vitamin D (Caltrate 600 + Vit D) 1 tab PO DAILY [facility] Last Admin: 10/26/19 09:12 Dose: 1 tab Carvedilol (Coreg) 3.125 mg PO BID[facility] Docusate Sodium (Colace) 100 mg PO BID [facility] Last Admin: 10/26/19 09:12 Dose: 100 mg Ferrous Sulfate (Feosol) 325 mg PO 0900,1700 [facility] Last Admin: 10/26/19 09:11 Dose: 325 mg Fish Oil (Fish Oil) 1,000 mg PO DAILY [facility] Last Admin: 10/26/19 09:12 Dose: 1,000 mg Furosemide (Lasix) 40 mg SLOW IVP 0600,1400 [facility] Last Admin: 10/26/19 14:34 Dose: 40 mg Gabapentin (Neurontin) 100 mg PO TID [facility] Last Admin: 10/26/19 14:34 Dose: 100 mg Guaifenesin/Dextromethorphan (Robitussin Dm) 15 ml PO Q4H PRN PRN Reason: Cough Last Admin: 10/24/19 14:23 Dose: 15 ml Hyoscyamine Sulfate (Levsin Elixir) 0.125 mg PO Q4H PRN PRN Reason: GI Cramping Last Admin: 10/23/19 15:22 Dose: 0.125 mg Dobutamine HCl/Dextrose (Dobutamine 500 Mg/250 Ml) 250 mls @ 16.533 mls/hr IVPB INF [facility]; Protocol Iron/Minerals/Multivitamins (Theragran M) 1 tab PO DAILY [facility] Last Admin: 10/26/19 09:12 Dose: 1 tab Levothyroxine Sodium (Synthroid) 150 mcg PO 0600 [facility] Last Admin: 10/26/19 05:57 Dose: 150 mcg Magnesium Oxide (Magnesium Oxide) 400 mg PO BID [facility] Last Admin: 10/26/19 09:12 Dose: 400 mg Miscellaneous Medication (Pharmacy To Dose) 1 each PO PRN PRN PRN Reason: Pharmacy to dose Mometasone Furoate/Formoterol Fumar (Dulera 200 Mcg/5 Mcg Inhaler) 2 puff INH BID-RT [facility] Last Admin: 10/26/19 06:49 Dose: 2 puff Morphine Sulfate (Morphine) 2 mg SLOW IVP Q2H PRN PRN Reason: Pain Last Admin: 10/25/19 13:30 Dose: 2 mg Nitroglycerin (Nitrostat) 0.4 mg SL Q30M PRN PRN Reason: .CHEST PAIN Nystatin (Mycostatin Powder) 0 gm TOP BID PRN PRN Reason: Topical Irritations Last Admin: 10/24/19 14:26 Dose: 1 applic Pantoprazole Sodium (Protonix) 40 mg PO DAILY [facility] Last Admin: 10/26/19 09:12 Dose: 40 mg Polyethylene Glycol (Miralax) 17 gm PO DAILY [facility] Last Admin: 10/26/19 09:11 Dose: 17 gm Pramipexole Dihydrochloride (Mirapex) 0.5 mg PO [facility] Last Admin: 10/25/19 21:53 Dose: 0.5 mg Prazosin HCl (Minipress) 1 mg PO [facility] Last Admin: 10/25/19 21:54 Dose: 1 mg Quetiapine Fumarate (Seroquel) 300 mg PO [facility] Last Admin: 10/25/19 21:52 Dose: 300 mg Senna (Senokot) 2 tab PO [facility] Last Admin: 10/25/19 21:51 Dose: 2 tab Sertraline HCl (Zoloft) 100 mg PO DAILY [facility] Last Admin: 10/26/19 09:12 Dose: 100 mg Sterile Water (Bacteriostatic Water) 1 ml FS PRN PRN PRN Reason: RECONSTITUTION Tramadol HCl (Ultram) 50 mg PO Q6H PRN PRN Reason: Mild Pain (1-3) Last Admin: 10/23/19 04:12 Dose: 50 mg Tramadol HCl (Ultram) 100 mg PO Q6H PRN PRN Reason: Moderate Pain (4-6) Last Admin: 10/24/19 21:52 Dose: 100 mg Trazodone HCl (Desyrel) 50 mg PO [facility] Last Admin: 10/25/19 21:52 Dose: 50 mg Warfarin Sodium (Coumadin) 5 mg PO 1700 [facility] Vital Signs & Weight: Vital Signs Temp Pulse Resp BP BP Pulse Ox 10/26/19 16:15 98.6 F 69 18 111/53 L 92 L 10/26/19 12:00 87 16 93 L 10/26/19 11:25 98.4 F 75 18 122/70 94 L 10/26/19 11:23 122/73 09/01/20 10:32 139/72 10/26/19 09:00 97.4 F L 79 19 110/51 L 96 10/26/19 06:51 67 16 96 10/26/19 06:49 67 16 96 Admit Weight 239 lb 12.8 oz Weight 243 lb - Physical Exam General: alert & oriented x3 HEENT: mucus membranes moist Neck: supple neck Cardiac: regular rate and rhythm Lungs: scattered rhonchi Neuro: grossly intact Abdomen: active bowel sounds Extremities: 1+ LE edema Skin: clear Musculoskeletal: no pain - Labs Result Diagrams: 10/25/19 04:31 10/25/19 04:31 - Telemetry Sinus rhythms and dysrhythmias: sinus rhythm - Assessment/Plan Assessment/Plan: 1. Dilated CM 2. S/P Mechanical mitral valve 3. CAD s/p multiple stents done with Dr. Pham at [facility] 4. Hodgkins Lymphoma in remission 5. Persistent afib 6. LV function at 20-25% on echo yesterday. 7. PVD s/p left leg BKA. 8. Chronic anticoagulation on coumadin 9. Supratherapeutic INR. PLAN: - Continue coumadin for both stroke prophylaxis from afib and mechanical valve. - EF reduced at 20-25% - BP has been low, will stop Entresto and reduce dose of BB - Will start Dobutamine to help diuresis as she is volume overload nd not urinating much. - Ins and outs euvolemic but not accurate. Will ask for stanley. - Will follow.
[2019-10-26] MEDS: DOBUTamine 500 mg/250 ml 250 ML IVPB SCH (18:28)
[2019-10-26] MEDS: Acetaminophen 325 MG TAB PO PRN (18:33)
[2019-10-26] MEDS: Carvedilol 3.125 MG TAB PO SCH (19:51)
[2019-10-26] MEDS: Atorvastatin Calcium 40 MG TAB PO SCH (20:28)
[2019-10-26] MEDS: Pramipexole Di-HCl 0.25 MG TAB PO SCH (20:28)
[2019-10-26] MEDS: traZODone HCl 50 MG TAB PO SCH (20:29)
[2019-10-26] MEDS: Senokot 8.6 MG TAB PO SCH (20:29)
[2019-10-26] MEDS: Prazosin HCl 1 MG CAP PO SCH (21:29)
[2019-10-27] MEDS: Acetaminophen 325 MG TAB PO PRN (04:03)
[2019-10-27] MEDS: Furosemide 40 MG/4 ML VIAL SLOW IVP SCH ×2 (05:17→12:31)
[2019-10-27] MEDS: Levothyroxine 150 MCG TAB PO SCH (05:17)
[2019-10-27] MEDS: Mometasone 200 MCG/Formoterol 5 MCG 120 PUFF INHALER INH SCH ×2 (06:30→19:10)
[2019-10-27] MEDS ORDERED: Furosemide 40 MG TAB PO SCH (07:30)
[2019-10-27] MEDS: DOBUTamine 500 mg/250 ml 250 ML IVPB SCH (08:30)
[2019-10-27] MEDS: Magnesium Oxide 400 MG TAB PO SCH ×2 (08:32→20:56)
[2019-10-27] MEDS: Fish Oil 1,000 MG CAP PO SCH (08:32)
[2019-10-27] MEDS: Gabapentin 100 MG CAP PO SCH ×3 (08:32→20:56)
[2019-10-27] MEDS: Carvedilol 3.125 MG TAB PO SCH ×2 (08:32→17:23)
[2019-10-27] MEDS: Multivitamin W/ Minerals 1 TAB PO SCH (08:32)
[2019-10-27] MEDS: Calcium Carbonate 600 MG + Vit D TAB PO SCH (08:32)
[2019-10-27] MEDS: Docusate 100 MG CAP PO SCH ×2 (08:32→20:58)
[2019-10-27] MEDS: Ferrous Sulfate 325 MG TAB PO SCH ×2 (08:33→16:39)
[2019-10-27] MEDS: Polyethylene Glycol 3350 17 GM Packet PO SCH (08:33)
--- NOTE | 2019-10-27 10:56 | PDOC.HOSPP ---
- Subjective Encounter Date: 10/27/19 Encounter Time: 10:55 Subjective: "i'm constipated. sob stable - Objective Vital Signs & Weight: Vital Signs (12 hours) Temp Pulse Resp BP Pulse Ox 10/27/19 07:13 97.3 F L 81 18 118/55 L 94 L 10/27/19 06:33 79 20 90 L 10/27/19 06:30 79 20 90 L 10/27/19 04:00 97.8 F 85 16 134/58 L 96 Weight Admit Weight 239 lb 12.8 oz Weight 248 lb 6.4 oz Most Recent Monitor Data Heart Rate from ECG 102 NIBP 112/76 NIBP BP-Mean 88 Respiration from ECG 24 SpO2 99 I&O: 10/26/19 10/27/19 10/28/19 06:59 06:59 06:59 Intake Total 1030 2050 Output Total 500 2700 Balance 530 -650 Result Diagrams: 10/25/19 04:31 10/25/19 04:31 Hospitalist ROS - Medication Medications: Active Medications Generic Name Dose Route Start Last Admin Trade Name Freq PRN Reason Stop Dose Admin Acetaminophen 650 mg 10/14/19 02:56 10/27/19 04:03 Tylenol PO 650 mg Q4H PRN Administration Headache/Fever or Pain Albuterol/Ipratropium 3 ml 10/13/19 07:00 10/27/19 06:33 Duoneb NEB 3 ml [id number] LISA Administration Atorvastatin Calcium 40 mg 10/13/19 21:00 10/26/19 20:28 Lipitor PO 40 mg HS LISA Administration Benzonatate 100 mg 10/19/19 13:30 10/26/19 09:12 Tessalon PO 100 mg Q4H PRN Administration Cough Bismuth Subsalicylate 1 tab 10/16/19 13:36 10/16/19 14:02 Pepto Bismol PO 1 tab Q2H PRN Administration Diarrhea/Loose Stools Calcium/Vitamin D 1 tab 10/13/19 09:00 10/27/19 08:32 Caltrate 600 + Vit D PO 1 tab DAILY LISA Administration Carvedilol 3.125 mg 10/26/19 17:00 10/27/19 08:32 Coreg PO 3.125 mg BID-WM LISA Administration Docusate Sodium 100 mg 10/16/19 21:00 10/27/19 08:32 Colace PO 100 mg BID LISA Administration Ferrous Sulfate 325 mg 10/13/19 09:00 10/27/19 08:33 Feosol PO 325 mg 0900,1700 LISA Administration Fish Oil 1,000 mg 10/13/19 09:00 10/27/19 08:32 Fish Oil PO 1,000 mg DAILY [facility] Administration Furosemide 40 mg 10/26/19 14:00 10/27/19 05:17 Lasix SLOW IVP 40 mg 0600,1400 LISA Administration Gabapentin 100 mg 10/23/19 21:00 10/27/19 08:32 Neurontin PO 100 mg TID LISA Administration Guaifenesin/Dextromethorphan 15 ml 10/23/19 11:47 10/24/19 14:23 Robitussin Dm PO 15 ml Q4H PRN Administration Cough Hyoscyamine Sulfate 0.125 mg 10/23/19 11:47 10/23/19 15:22 Levsin Elixir PO 0.125 mg Q4H PRN Administration GI Cramping Dobutamine HCl/Dextrose 250 mls @ 16.533 mls/hr 10/26/19 17:00 10/27/19 08:30 Dobutamine 500 Mg/250 Ml IVPB 250 mls INF LISA Administration Protocol 5 MCG/KG/MIN Iron/Minerals/Multivitamins 1 tab 10/13/19 09:00 10/27/19 08:32 Theragran M PO 1 tab DAILY [facility] Administration Levothyroxine Sodium 150 mcg 10/13/19 06:00 10/27/19 05:17 Synthroid PO 150 mcg 0600 [facility] Administration Magnesium Oxide 400 mg 10/18/19 09:00 10/27/19 08:32 Magnesium Oxide PO 400 mg BID LISA Administration Mometasone Furoate/Formoterol Fumar 2 puff 10/14/19 18:30 10/27/19 06:30 Dulera 200 Mcg/5 Mcg Inhaler INH 2 puff BID-RT LISA Administration Morphine Sulfate 2 mg 10/13/19 18:05 10/25/19 13:30 Morphine SLOW IVP 2 mg Q2H PRN Administration Pain Nystatin 0 gm 10/15/19 10:56 10/24/19 14:26 Mycostatin Powder TOP 1 applic BID PRN Administration Topical Irritations Pantoprazole Sodium 40 mg 10/13/19 09:00 10/27/19 08:33 Protonix PO 40 mg DAILY [facility] Administration Polyethylene Glycol 17 gm 10/22/19 09:00 10/27/19 08:33 Miralax PO 17 gm DAILY [facility] Administration Pramipexole Dihydrochloride 0.5 mg 10/13/19 21:00 10/26/19 20:28 Mirapex PO 0.5 mg HS LISA Administration Prazosin HCl 1 mg 10/13/19 21:00 10/26/19 21:29 Minipress PO Not Given HS LISA Quetiapine Fumarate 300 mg 10/13/19 21:00 10/26/19 20:28 Seroquel PO 300 mg HS L[facility] Administration Senna 2 tab 10/21/19 21:00 10/26/19 20:29 Senokot PO 2 tab HS L[facility] Administration Sertraline HCl 100 mg 10/13/19 09:00 10/27/19 08:33 Zoloft PO 100 mg DAILY [facility] Administration Tramadol HCl 50 mg 10/18/19 13:09 10/23/19 04:12 Ultram PO 50 mg Q6H PRN Administration Mild Pain (1-3) Tramadol HCl 100 mg 10/18/19 13:09 10/24/19 21:52 Ultram PO 100 mg Q6H PRN Administration Moderate Pain (4-6) Trazodone HCl 50 mg 10/13/19 21:00 10/26/19 20:29 Desyrel PO 50 mg HS LISA Administration Warfarin Sodium 5 mg 10/26/19 17:00 10/26/19 18:24 Coumadin PO 5 mg 1700 LISA Administration - Exam Neck: JVD Heart: irregular, II/IV Respiratory - other findings: coarse , post rales Gastrointestinal: soft, normal bowel sounds Extremities: 2+ LE edema Hosp A/P (1) Atrial fibrillation Code(s): I48.91 - UNSPECIFIED ATRIAL FIBRILLATION Status: Acute Qualifiers: Atrial fibrillation type: paroxysmal Qualified Code(s): I48.0 - Paroxysmal atrial fibrillation (2) Ventricular tachycardia Code(s): I47.2 - VENTRICULAR TACHYCARDIA Status: Acute (3) Chronic anticoagulation Code(s): Z79.01 - [employer] (CURRENT) USE OF ANTICOAGULANTS Status: Chronic (4) Cardiomyopathy Code(s): I42.9 - CARDIOMYOPATHY, UNSPECIFIED Status: Chronic Qualifiers: Cardiomyopathy type: unspecified Qualified Code(s): I42.9 - Cardiomyopathy , unspecified (5) Chronic respiratory failure with hypoxia Code(s): J96.11 - CHRONIC RESPIRATORY FAILURE WITH HYPOXIA Status: Chronic (6) Elevated troponin Code(s): R79.89 - OTHER SPECIFIED ABNORMAL FINDINGS OF BLOOD CHEMISTRY Status : Acute (7) CAD (coronary artery disease) Code(s): I25.10 - ATHSCL HEART DISEASE OF [place] CORONARY ARTERY W/O ANG PCTRS Status: Chronic Qualifiers: Coronary Disease-Associated Artery/Lesion type: [place] artery [place] vs. transplanted heart: [place] heart Associated angina: without angina Qualified Code(s): I25.10 - Atherosclerotic heart disease of [place] coronary artery without angina pectoris (8) CKD (chronic kidney disease), stage III Code(s): N18.3 - CHRONIC KIDNEY DISEASE, STAGE 3 (MODERATE) Status: Chronic (9) COPD (chronic obstructive pulmonary disease) Status: Chronic Qualifiers: COPD type: chronic bronchitis (10) Dyslipidemia Code(s): E78.5 - HYPERLIPIDEMIA, UNSPECIFIED Status: Chronic (11) H/O mitral valve replacement with mechanical valve Code(s): Z95.2 - PRESENCE OF PROSTHETIC HEART VALVE Status: Chronic (12) HTN (hypertension) Code(s): I10 - ESSENTIAL (PRIMARY) HYPERTENSION Status: Chronic Qualifiers: Hypertension type: essential hypertension Qualified Code(s): I10 - Essential (primary) hypertension - Plan cont coreg, entresto, iv diuresis warfarin, PT/INR now therapeutic on iv dobutamine to increase diuresis discuss with Cardiology CM for SNF placement
[2019-10-27] MEDS: Bisacodyl 5 MG TAB PO PRN (12:30)
[2019-10-27 16:22] LABS: INR-International Normal Ratio 3.8
[2019-10-27 16:37] LABS: Anion Gap 10 mmol/L (10-20); BUN (Urea Nitrogen) 50 mg/dL (9.8-20.1); Calc. Creatinine Clearance 50 mL/min (70-130); Calcium 8.4 mg/dL (7.8-10.44); Carbon Dioxide 33 mmol/L (23-31); Chloride 91 mmol/L (98-107); Estimated GFR-MDRD 31; Glucose 126 mg/dL (83-110); Potassium 3.6 mmol/L (3.5-5.1); Sodium 130 mmol/L (136-145)
[2019-10-27] MEDS: Benzonatate 100 MG CAP PO PRN (17:31)
--- NOTE | 2019-10-27 17:38 | PDOC.CPN ---
- Subjective Date: 10/27/19 Time: 17:35 Interval history: She looks a lot better than yesterday. Breathing is much better, able to talk in full sentences. No angina. Still weak. - Review of Systems General: reports: fatigue. denies: fever/chills, weight/appetite/sleep changes , night sweats Respiratory: reports: exercise intolerance. denies: cough, congestion, shortness of breath Cardiovascular: denies: chest pain, palpitation, edema, paroxysmal nocturnal dyspnea, orthopnea Gastrointestinal: denies: nausea, vomiting, diarrhea, constipation, abd pain, GI bleeding Musculoskeletal: denies: pain, tenderness, stiffness, swelling, arthritis/ arthralgias Neurological: denies: numbness, syncope, seizure, weakness - Objective Allergies/Adverse Reactions: Allergies Allergy/AdvReac Type Severity Reaction Status Date / Time codeine Allergy Verified 10/13/19 03:16 Sulfa (Sulfonamide Allergy Verified 10/13/19 03:16 Antibiotics) Visit Medications: Current Medications Acetaminophen (Tylenol) 650 mg [place] Q4H PRN PRN Reason: Headache/Fever or Pain Acetaminophen (Tylenol) 650 mg PO Q4H PRN PRN Reason: Headache/Fever or Pain Last Admin: 10/27/19 04:03 Dose: 650 mg Albuterol/Ipratropium (Duoneb) 3 ml NEB [id number] [facility] Last Admin: 10/27/19 13:09 Dose: 3 ml Albuterol/Ipratropium (Duoneb) 3 ml EZPAP Q2H PRN PRN Reason: SOB &/or Wheezing Atorvastatin Calcium (Lipitor) 40 mg PO HS [facility] Last Admin: 10/26/19 20:28 Dose: 40 mg Benzonatate (Tessalon) 100 mg PO Q4H PRN PRN Reason: Cough Last Admin: 10/27/19 17:31 Dose: 100 mg Bisacodyl (Dulcolax) 10 mg PO DAILYPRN PRN PRN Reason: Constipation Last Admin: 10/27/19 12:30 Dose: 10 mg Bisacodyl (Dulcolax) 10 mg RI DAILYPRN PRN PRN Reason: Constipation Last Admin: 10/27/19 16:45 Dose: 10 mg Bismuth Subsalicylate (Pepto Bismol) 1 tab PO Q2H PRN PRN Reason: Diarrhea/Loose Stools Last Admin: 10/16/19 14:02 Dose: 1 tab Calcium/Vitamin D (Caltrate 600 + Vit D) 1 tab PO DAILY [facility] Last Admin: 10/27/19 08:32 Dose: 1 tab Carvedilol (Coreg) 3.125 mg PO BID-WM [facility] Last Admin: 10/27/19 17:23 Dose: 3.125 mg Docusate Sodium (Colace) 100 mg PO BID [facility] Last Admin: 10/27/19 08:32 Dose: 100 mg Ferrous Sulfate (Feosol) 325 mg PO 0900,1700 [facility] Last Admin: 10/27/19 08:33 Dose: 325 mg Fish Oil (Fish Oil) 1,000 mg PO DAILY [facility] Last Admin: 10/27/19 08:32 Dose: 1,000 mg Gabapentin (Neurontin) 100 mg PO TID [facility] Last Admin: 10/27/19 14:43 Dose: 100 mg Guaifenesin/Dextromethorphan (Robitussin Dm) 15 ml PO Q4H PRN PRN Reason: Cough Last Admin: 10/24/19 14:23 Dose: 15 ml Hyoscyamine Sulfate (Levsin Elixir) 0.125 mg PO Q4H PRN PRN Reason: GI Cramping Last Admin: 10/23/19 15:22 Dose: 0.125 mg Dobutamine HCl/Dextrose (Dobutamine 500 Mg/250 Ml) 250 mls @ 16.533 mls/hr IVPB INF [facility] Last Admin: 10/27/19 08:30 Dose: 250 mls Iron/Minerals/Multivitamins (Theragran M) 1 tab PO DAILY [facility] Last Admin: 10/27/19 08:32 Dose: 1 tab Levothyroxine Sodium (Synthroid) 150 mcg PO 0600 [facility] Last Admin: 10/27/19 05:17 Dose: 150 mcg Magnesium Oxide (Magnesium Oxide) 400 mg PO BID [facility] Last Admin: 10/27/19 08:32 Dose: 400 mg Miscellaneous Medication (Pharmacy To Dose) 1 each PO PRN PRN PRN Reason: Pharmacy to dose Mometasone Furoate/Formoterol Fumar (Dulera 200 Mcg/5 Mcg Inhaler) 2 puff INH BID-RT [facility] Last Admin: 10/27/19 06:30 Dose: 2 puff Morphine Sulfate (Morphine) 2 mg SLOW IVP Q2H PRN PRN Reason: Pain Last Admin: 10/25/19 13:30 Dose: 2 mg Nitroglycerin (Nitrostat) 0.4 mg SL Q30M PRN PRN Reason: .CHEST PAIN Nystatin (Mycostatin Powder) 0 gm TOP BID PRN PRN Reason: Topical Irritations Last Admin: 10/24/19 14:26 Dose: 1 applic Pantoprazole Sodium (Protonix) 40 mg PO DAILY [facility] Last Admin: 10/27/19 08:33 Dose: 40 mg Polyethylene Glycol (Miralax) 17 gm PO DAILY [facility] Last Admin: 10/27/19 08:33 Dose: 17 gm Pramipexole Dihydrochloride (Mirapex) 0.5 mg PO [facility] Last Admin: 10/26/19 20:28 Dose: 0.5 mg Prazosin HCl (Minipress) 1 mg PO HS [facility] Last Admin: 10/26/19 21:29 Dose: Not Given Quetiapine Fumarate (Seroquel) 300 mg PO [facility] Last Admin: 10/26/19 20:28 Dose: 300 mg Senna (Senokot) 2 tab PO [facility] Last Admin: 10/26/19 20:29 Dose: 2 tab Sertraline HCl (Zoloft) 100 mg PO DAILY [facility] Last Admin: 10/27/19 08:33 Dose: 100 mg Sterile Water (Bacteriostatic Water) 1 ml FS PRN PRN PRN Reason: RECONSTITUTION Tramadol HCl (Ultram) 50 mg PO Q6H PRN PRN Reason: Mild Pain (1-3) Last Admin: 10/23/19 04:12 Dose: 50 mg Tramadol HCl (Ultram) 100 mg PO Q6H PRN PRN Reason: Moderate Pain (4-6) Last Admin: 10/24/19 21:52 Dose: 100 mg Trazodone HCl (Desyrel) 50 mg PO [facility] Last Admin: 10/26/19 20:29 Dose: 50 mg Warfarin Sodium (Coumadin) 4 mg PO 1700 [facility] Vital Signs & Weight: Vital Signs Temp Pulse Pulse Pulse Resp BP BP 10/27/19 15:13 97.5 F L 73 16 10/27/19 13:09 73 16 10/27/19 13:03 97.5 F L 20 10/27/19 11:10 73 32 H 10/27/19 11:03 78 73 133/62 127/61 10/27/19 07:13 97.3 F L 81 18 10/27/19 06:33 79 20 10/27/19 06:30 79 20 BP Pulse Ox Pulse Ox Pulse Ox 10/27/19 15:13 129/54 L 95 10/27/19 13:09 92 L 10/27/19 13:03 10/27/19 11:10 127/61 94 L 10/27/19 11:03 97 99 10/27/19 07:13 118/55 L 94 L 10/27/19 06:33 90 L 10/27/19 06:30 90 L Admit Weight 239 lb 12.8 oz Weight 248 lb 6.4 oz - Physical Exam General: alert & oriented x3 HEENT: mucus membranes moist Neck: supple neck Cardiac: regular rate and rhythm Lungs: normal breath sounds Neuro: grossly intact Abdomen: active bowel sounds Extremities: no edema Skin: clear Musculoskeletal: no pain - Labs Result Diagrams: 10/25/19 04:31 10/27/19 15:57 - Telemetry Sinus rhythms and dysrhythmias: sinus rhythm - Assessment/Plan Assessment/Plan: 1. Dilated CM 2. S/P Mechanical mitral valve 3. CAD s/p multiple stents done with Dr. Pham at [facility] 4. Hodgkins Lymphoma in remission 5. Persistent afib 6. LV function at 20-25% 7. PVD s/p left leg BKA. 8. Chronic anticoagulation on coumadin 9. Supratherapeutic INR. Better. PLAN: - Continue coumadin for both stroke prophylaxis from afib and mechanical valve. - INR per pharmacy. - Has had better diuresis on innotroic support and lasix. Continue dobutamine drip but will hold on more IV lasix after today as her renal function is still going up. - May need to give back some fluid tomorrow if creatinine worsens. - [facility] just before discharge not ready at this time.
[2019-10-27] MEDS: Pramipexole Di-HCl 0.25 MG TAB PO SCH (20:56)
[2019-10-27] MEDS: traZODone HCl 50 MG TAB PO SCH (20:56)
[2019-10-27] MEDS: Atorvastatin Calcium 40 MG TAB PO SCH (20:57)
[2019-10-27] MEDS: Senokot 8.6 MG TAB PO SCH (20:57)
[2019-10-28] MEDS: DOBUTamine 500 mg/250 ml 250 ML IVPB SCH ×2 (01:31→16:45)
[2019-10-28] MEDS: Benzonatate 100 MG CAP PO PRN ×3 (02:40→16:24)
[2019-10-28 05:13] LABS: INR-International Normal Ratio 3.9; Prothrombin Time 37.9 sec (12.0-14.7)
[2019-10-28] MEDS: Levothyroxine 150 MCG TAB PO SCH (06:33)
[2019-10-28] MEDS: Prazosin HCl 1 MG CAP PO SCH ×2 (06:37→20:37)
[2019-10-28] MEDS: Mometasone 200 MCG/Formoterol 5 MCG 120 PUFF INHALER INH SCH ×2 (06:56→18:50)
--- NOTE | 2019-10-28 08:31 | PDOC.HOSPP ---
- Subjective Encounter Date: 10/28/19 Encounter Time: 08:29 Subjective: "I'm good" - Objective Vital Signs & Weight: Vital Signs (12 hours) Temp Pulse Resp BP Pulse Ox 10/28/19 07:11 98.1 F 127 H 19 98/53 L 97 10/28/19 07:00 60 16 90 L 10/28/19 06:59 90 L 10/28/19 06:56 60 16 90 L 10/28/19 04:00 97.6 F 84 24 H 107/49 L 92 L Weight Admit Weight 239 lb 12.8 oz Weight 247 lb 14.4 oz Most Recent Monitor Data Heart Rate from ECG 102 NIBP 112/76 NIBP BP-Mean 88 Respiration from ECG 24 SpO2 99 I&O: 10/27/19 10/28/19 10/29/19 06:59 06:59 06:59 Intake Total 2050 1876 Output Total 2700 2450 Balance -650 -574 Result Diagrams: 10/25/19 04:31 10/27/19 15:57 Hospitalist ROS - Medication Medications: Active Medications Generic Name Dose Route Start Last Admin Trade Name Freq PRN Reason Stop Dose Admin Acetaminophen 650 mg 10/14/19 02:56 10/27/19 04:03 Tylenol PO 650 mg Q4H PRN Administration Headache/Fever or Pain Albuterol/Ipratropium 3 ml 10/13/19 07:00 10/28/19 07:00 Duoneb NEB 3 ml [id number] LISA Administration Atorvastatin Calcium 40 mg 10/13/19 21:00 10/27/19 20:57 Lipitor PO 40 mg HS LISA Administration Benzonatate 100 mg 10/19/19 13:30 10/28/19 02:40 Tessalon PO 100 mg Q4H PRN Administration Cough Bisacodyl 10 mg 10/16/19 09:32 10/27/19 12:30 Dulcolax PO 10 mg DAILYPRN PRN Administration Constipation Bisacodyl 10 mg 10/16/19 09:33 10/27/19 16:45 Dulcolax [place] 10 mg DAILYPRN PRN Administration Constipation Bismuth Subsalicylate 1 tab 10/16/19 13:36 10/16/19 14:02 Pepto Bismol PO 1 tab Q2H PRN Administration Diarrhea/Loose Stools Calcium/Vitamin D 1 tab 10/13/19 09:00 10/27/19 08:32 Caltrate 600 + Vit D PO 1 tab DAILY LISA Administration Carvedilol 3.125 mg 10/26/19 17:00 10/27/19 17:23 Coreg PO 3.125 mg BID-WM LISA Administration Docusate Sodium 100 mg 10/16/19 21:00 10/27/19 20:58 Colace PO 100 mg BID LISA Administration Ferrous Sulfate 325 mg 10/13/19 09:00 10/27/19 08:33 Feosol PO 325 mg 0900,1700 LISA Administration Fish Oil 1,000 mg 10/13/19 09:00 10/27/19 08:32 Fish Oil PO 1,000 mg DAILY LISA Administration Gabapentin 100 mg 10/23/19 21:00 10/27/19 20:56 Neurontin PO 100 mg TID LISA Administration Guaifenesin/Dextromethorphan 15 ml 10/23/19 11:47 10/24/19 14:23 Robitussin Dm PO 15 ml Q4H PRN Administration Cough Hyoscyamine Sulfate 0.125 mg 10/23/19 11:47 10/23/19 15:22 Levsin Elixir PO 0.125 mg Q4H PRN Administration GI Cramping Dobutamine HCl/Dextrose 250 mls @ 16.533 mls/hr 10/26/19 17:00 10/28/19 01:31 Dobutamine 500 Mg/250 Ml IVPB 250 mls INF LISA Administration 5 MCG/KG/MIN Iron/Minerals/Multivitamins 1 tab 10/13/19 09:00 10/27/19 08:32 Theragran M PO 1 tab DAILY LISA Administration Levothyroxine Sodium 150 mcg 10/13/19 06:00 10/28/19 06:33 Synthroid PO 150 mcg 0600 LISA Administration Magnesium Oxide 400 mg 10/18/19 09:00 10/27/19 20:56 Magnesium Oxide PO 400 mg BID LISA Administration Mometasone Furoate/Formoterol Fumar 2 puff 10/14/19 18:30 10/28/19 06:56 Dulera 200 Mcg/5 Mcg Inhaler INH 2 puff BID-RT LISA Administration Morphine Sulfate 2 mg 10/13/19 18:05 10/25/19 13:30 Morphine SLOW IVP 2 mg Q2H PRN Administration Pain Nystatin 0 gm 10/15/19 10:56 10/24/19 14:26 Mycostatin Powder TOP 1 applic BID PRN Administration Topical Irritations Pantoprazole Sodium 40 mg 10/13/19 09:00 10/27/19 08:33 Protonix PO 40 mg DAILY LISA Administration Polyethylene Glycol 17 gm 10/22/19 09:00 10/27/19 08:33 Miralax PO 17 gm DAILY LISA Administration Pramipexole Dihydrochloride 0.5 mg 10/13/19 21:00 10/27/19 20:56 Mirapex PO 0.5 mg HS LISA Administration Prazosin HCl 1 mg 10/13/19 21:00 10/28/19 06:37 Minipress PO Not Given HS LISA Quetiapine Fumarate 300 mg 10/13/19 21:00 10/27/19 20:56 Seroquel PO 300 mg HS LISA Administration Senna 2 tab 10/21/19 21:00 10/27/19 20:57 Senokot PO 2 tab HS LISA Administration Sertraline HCl 100 mg 10/13/19 09:00 10/27/19 08:33 Zoloft PO 100 mg DAILY LISA Administration Tramadol HCl 50 mg 10/18/19 13:09 10/23/19 04:12 Ultram PO 50 mg Q6H PRN Administration Mild Pain (1-3) Tramadol HCl 100 mg 10/18/19 13:09 10/24/19 21:52 Ultram PO 100 mg Q6H PRN Administration Moderate Pain (4-6) Trazodone HCl 50 mg 10/13/19 21:00 10/27/19 20:56 Desyrel PO 50 mg HS LISA Administration - Exam General Appearance: awake alert Neck: JVD Heart: irregular Respiratory - other findings: post rales Gastrointestinal: soft, normal bowel sounds Extremities: 2+ LE edema Hosp A/P (1) Acute on chronic systolic heart failure, NYHA class 4 Code(s): I50.23 - ACUTE ON CHRONIC SYSTOLIC (CONGESTIVE) HEART FAILURE Status : Acute (2) Atrial fibrillation Code(s): I48.91 - UNSPECIFIED ATRIAL FIBRILLATION Status: Acute Qualifiers: Atrial fibrillation type: paroxysmal Qualified Code(s): I48.0 - Paroxysmal atrial fibrillation (3) Ventricular tachycardia Code(s): I47.2 - VENTRICULAR TACHYCARDIA Status: Acute (4) Chronic anticoagulation Code(s): Z79.01 - [employer] (CURRENT) USE OF ANTICOAGULANTS Status: Chronic (5) Cardiomyopathy Code(s): I42.9 - CARDIOMYOPATHY, UNSPECIFIED Status: Chronic Qualifiers: Cardiomyopathy type: unspecified Qualified Code(s): I42.9 - Cardiomyopathy , unspecified (6) Chronic respiratory failure with hypoxia Code(s): J96.11 - CHRONIC RESPIRATORY FAILURE WITH HYPOXIA Status: Chronic (7) Elevated troponin Code(s): R79.89 - OTHER SPECIFIED ABNORMAL FINDINGS OF BLOOD CHEMISTRY Status : Acute (8) CAD (coronary artery disease) Code(s): I25.10 - ATHSCL HEART DISEASE OF [place] CORONARY ARTERY W/O ANG PCTRS Status: Chronic Qualifiers: Coronary Disease-Associated Artery/Lesion type: [place] artery [place] vs. transplanted heart: [place] heart Associated angina: without angina Qualified Code(s): I25.10 - Atherosclerotic heart disease of [place] coronary artery without angina pectoris (9) CKD (chronic kidney disease), stage III Code(s): N18.3 - CHRONIC KIDNEY DISEASE, STAGE 3 (MODERATE) Status: Chronic (10) COPD (chronic obstructive pulmonary disease) Status: Chronic Qualifiers: COPD type: chronic bronchitis (11) Dyslipidemia Code(s): E78.5 - HYPERLIPIDEMIA, UNSPECIFIED Status: Chronic (12) H/O mitral valve replacement with mechanical valve Code(s): Z95.2 - PRESENCE OF PROSTHETIC HEART VALVE Status: Chronic (13) HTN (hypertension) Code(s): I10 - ESSENTIAL (PRIMARY) HYPERTENSION Status: Chronic Qualifiers: Hypertension type: essential hypertension Qualified Code(s): I10 - Essential (primary) hypertension - Plan cont coreg, entresto warfarin, PT/INR now therapeutic on iv dobutamine to increase diuresis discuss with Cardiology check renalfcn daily
[2019-10-28] MEDS: Multivitamin W/ Minerals 1 TAB PO SCH (08:56)
[2019-10-28] MEDS: Calcium Carbonate 600 MG + Vit D TAB PO SCH (08:56)
[2019-10-28] MEDS: Fish Oil 1,000 MG CAP PO SCH (08:56)
[2019-10-28] MEDS: Docusate 100 MG CAP PO SCH ×2 (08:56→20:31)
[2019-10-28] MEDS: Magnesium Oxide 400 MG TAB PO SCH ×2 (08:56→20:31)
[2019-10-28] MEDS: Gabapentin 100 MG CAP PO SCH ×3 (08:56→20:36)
[2019-10-28] MEDS: Carvedilol 3.125 MG TAB PO SCH ×2 (08:56→16:24)
[2019-10-28] MEDS: Polyethylene Glycol 3350 17 GM Packet PO SCH (08:57)
[2019-10-28 09:06] LABS: Anion Gap 13 mmol/L (10-20); BUN (Urea Nitrogen) 44 mg/dL (9.8-20.1); Calc. Creatinine Clearance 53 mL/min (70-130); Calcium 8.1 mg/dL (7.8-10.44); Carbon Dioxide 29 mmol/L (23-31); Chloride 92 mmol/L (98-107); Estimated GFR-MDRD 33; Glucose 119 mg/dL (83-110); Potassium 4.1 mmol/L (3.5-5.1); Sodium 130 mmol/L (136-145)
[2019-10-28] MEDS: Ferrous Sulfate 325 MG TAB PO SCH ×2 (09:34→16:42)
[2019-10-28 13:07] VITALS: BMI 42.5
--- NOTE | 2019-10-28 16:32 | PDOC.FMACP ---
Advance Care Planning - Problem (1) Palliative care encounter Status: Acute Code(s): Z51.5 - ENCOUNTER FOR PALLIATIVE CARE (2) Acute on chronic systolic heart failure, NYHA class 4 Status: Acute Code(s): I50.23 - ACUTE ON CHRONIC SYSTOLIC (CONGESTIVE) HEART FAILURE (3) Status post above-knee amputation of left lower extremity Status: Acute Code(s): Z89.612 - ACQUIRED ABSENCE OF LEFT LEG ABOVE KNEE (4) Cardiomyopathy Status: Chronic Code(s): I42.9 - CARDIOMYOPATHY, UNSPECIFIED Qualifiers: Cardiomyopathy type: unspecified Qualified Code(s): I42.9 - Cardiomyopathy , unspecified (5) CHERIE (acute kidney injury) Status: Acute Code(s): N17.9 - ACUTE KIDNEY FAILURE, UNSPECIFIED (6) COPD (chronic obstructive pulmonary disease) Status: Chronic Qualifiers: COPD type: chronic bronchitis - Note Participants: patient, palliative care Summary: Palliative Care discussed Advanced Care Planning. The diagnosis, prognosis and goals of care were discussed. Appropriate forms and documentation to accomplish the goals of care were discussed. All questions were answered. Mrs Clemens elected to complete a MPOA and Directive to Physicians. She wishes to remain with full resuscitation measures. Original given to patient, copy place on chart for medical record. Please also refer to Palliative Care notes in note section. Time Spent (mins): 20
[2019-10-28] MEDS ORDERED: Warfarin Sodium 3 MG TAB PO SCH (17:00)
[2019-10-28] MEDS ORDERED: Warfarin Sodium 2 MG TAB PO SCH (17:00)
--- NOTE | 2019-10-28 17:25 | PDOC.CPN ---
- Subjective Date: 10/28/19 Time: 17:23 Interval history: She is doing better every day. She had a large BM yesterday and feels better already. Her breathing is unchanged from yesterday and not an issue. - Review of Systems General: denies: fever/chills, weight/appetite/sleep changes, night sweats, fatigue Respiratory: denies: cough, congestion, shortness of breath, exercise intolerance Cardiovascular: denies: chest pain, palpitation, edema, paroxysmal nocturnal dyspnea, orthopnea Gastrointestinal: denies: nausea, vomiting, diarrhea, constipation, abd pain, GI bleeding Musculoskeletal: denies: pain, tenderness, stiffness, swelling, arthritis/ arthralgias Neurological: denies: numbness, syncope, seizure, weakness - Objective Allergies/Adverse Reactions: Allergies Allergy/AdvReac Type Severity Reaction Status Date / Time codeine Allergy Verified 10/13/19 03:16 Sulfa (Sulfonamide Allergy Verified 10/13/19 03:16 Antibiotics) Visit Medications: Current Medications Acetaminophen (Tylenol) 650 mg [place] Q4H PRN PRN Reason: Headache/Fever or Pain Acetaminophen (Tylenol) 650 mg PO Q4H PRN PRN Reason: Headache/Fever or Pain Last Admin: 10/27/19 04:03 Dose: 650 mg Albuterol/Ipratropium (Duoneb) 3 ml NEB [id number] LISA Last Admin: 10/28/19 12:23 Dose: Not Given Albuterol/Ipratropium (Duoneb) 3 ml EZPAP Q2H PRN PRN Reason: SOB &/or Wheezing Atorvastatin Calcium (Lipitor) 40 mg PO HS [facility] Last Admin: 10/27/19 20:57 Dose: 40 mg Benzonatate (Tessalon) 100 mg PO Q4H PRN PRN Reason: Cough Last Admin: 10/28/19 16:24 Dose: 100 mg Bisacodyl (Dulcolax) 10 mg PO DAILYPRN PRN PRN Reason: Constipation Last Admin: 10/27/19 12:30 Dose: 10 mg Bisacodyl (Dulcolax) 10 mg [place] DAILYPRN PRN PRN Reason: Constipation Last Admin: 10/27/19 16:45 Dose: 10 mg Bismuth Subsalicylate (Pepto Bismol) 1 tab PO Q2H PRN PRN Reason: Diarrhea/Loose Stools Last Admin: 10/16/19 14:02 Dose: 1 tab Calcium/Vitamin D (Caltrate 600 + Vit D) 1 tab PO DAILY [facility] Last Admin: 10/28/19 08:56 Dose: 1 tab Carvedilol (Coreg) 3.125 mg PO BID-WM [facility] Last Admin: 10/28/19 16:24 Dose: 3.125 mg Docusate Sodium (Colace) 100 mg PO BID [facility] Last Admin: 10/28/19 08:56 Dose: 100 mg Ferrous Sulfate (Feosol) 325 mg PO 0900,1700 [facility] Last Admin: 10/28/19 16:42 Dose: Not Given Fish Oil (Fish Oil) 1,000 mg PO DAILY [facility] Last Admin: 10/28/19 08:56 Dose: 1,000 mg Gabapentin (Neurontin) 100 mg PO TID [facility] Last Admin: 10/28/19 16:24 Dose: 100 mg Guaifenesin/Dextromethorphan (Robitussin Dm) 15 ml PO Q4H PRN PRN Reason: Cough Last Admin: 10/24/19 14:23 Dose: 15 ml Hyoscyamine Sulfate (Levsin Elixir) 0.125 mg PO Q4H PRN PRN Reason: GI Cramping Last Admin: 10/23/19 15:22 Dose: 0.125 mg Iron/Minerals/Multivitamins (Theragran M) 1 tab PO DAILY [facility] Last Admin: 10/28/19 08:56 Dose: 1 tab Levothyroxine Sodium (Synthroid) 150 mcg PO 0600 [facility] Last Admin: 10/28/19 06:33 Dose: 150 mcg Magnesium Oxide (Magnesium Oxide) 400 mg PO BID [facility] Last Admin: 10/28/19 08:56 Dose: 400 mg Miscellaneous Medication (Pharmacy To Dose) 1 each PO PRN PRN PRN Reason: Pharmacy to dose Mometasone Furoate/Formoterol Fumar (Dulera 200 Mcg/5 Mcg Inhaler) 2 puff INH BID-RT [facility] Last Admin: 10/28/19 06:56 Dose: 2 puff Morphine Sulfate (Morphine) 2 mg SLOW IVP Q2H PRN PRN Reason: Pain Last Admin: 10/25/19 13:30 Dose: 2 mg Nitroglycerin (Nitrostat) 0.4 mg SL Q30M PRN PRN Reason: .CHEST PAIN Nystatin (Mycostatin Powder) 0 gm TOP BID PRN PRN Reason: Topical Irritations Last Admin: 10/24/19 14:26 Dose: 1 applic Pantoprazole Sodium (Protonix) 40 mg PO DAILY [facility] Last Admin: 10/28/19 08:57 Dose: 40 mg Polyethylene Glycol (Miralax) 17 gm PO DAILY [facility] Last Admin: 10/28/19 08:57 Dose: 17 gm Pramipexole Dihydrochloride (Mirapex) 0.5 mg PO [facility] Last Admin: 10/27/19 20:56 Dose: 0.5 mg Prazosin HCl (Minipress) 1 mg PO [facility] Last Admin: 10/28/19 06:37 Dose: Not Given Quetiapine Fumarate (Seroquel) 300 mg PO [facility] Last Admin: 10/27/19 20:56 Dose: 300 mg Senna (Senokot) 2 tab PO [facility] Last Admin: 10/27/19 20:57 Dose: 2 tab Sertraline HCl (Zoloft) 100 mg PO DAILY [facility] Last Admin: 10/28/19 08:56 Dose: 100 mg Sterile Water (Bacteriostatic Water) 1 ml FS PRN PRN PRN Reason: RECONSTITUTION Tramadol HCl (Ultram) 50 mg PO Q6H PRN PRN Reason: Mild Pain (1-3) Last Admin: 10/23/19 04:12 Dose: 50 mg Tramadol HCl (Ultram) 100 mg PO Q6H PRN PRN Reason: Moderate Pain (4-6) Last Admin: 10/24/19 21:52 Dose: 100 mg Trazodone HCl (Desyrel) 50 mg PO [facility] Last Admin: 10/27/19 20:56 Dose: 50 mg Warfarin Sodium (Coumadin) 3 mg PO 1700 [facility] Vital Signs & Weight: Vital Signs Temp Pulse Pulse Resp BP BP BP 10/28/19 16:45 87 144/68 H 10/28/19 16:12 98.0 F 80 20 166/67 H 10/28/19 12:00 98.0 F 87 20 119/71 10/28/19 11:07 112/56 L 145/64 H 10/28/19 07:11 98.1 F 127 H 19 98/53 L 10/28/19 07:00 60 16 10/28/19 06:59 10/28/19 06:56 60 16 Pulse Ox 10/28/19 16:45 10/28/19 16:12 95 10/28/19 12:00 95 10/28/19 11:07 10/28/19 07:11 97 10/28/19 07:00 90 L 10/28/19 06:59 90 L 10/28/19 06:56 90 L Admit Weight 239 lb 12.8 oz Weight 247 lb 14.4 oz - Physical Exam General: alert & oriented x3 HEENT: mucus membranes moist Neck: supple neck Cardiac: regular rate and rhythm Lungs: normal breath sounds Neuro: grossly intact Abdomen: active bowel sounds Extremities: no edema Skin: clear Musculoskeletal: no pain - Labs Result Diagrams: 10/25/19 04:31 10/28/19 08:33 - Telemetry Sinus rhythms and dysrhythmias: sinus rhythm - Assessment/Plan Assessment/Plan: 1. Dilated CM 2. S/P Mechanical mitral valve 3. CAD s/p multiple stents done with Dr. Pham at [facility] 4. Hodgkins Lymphoma in remission 5. Persistent afib 6. LV function at 20-25% 7. PVD s/p left leg BKA. 8. Chronic anticoagulation on coumadin 9. Supratherapeutic INR. Better. PLAN: - Continue coumadin for both stroke prophylaxis from afib and mechanical valve. - INR per pharmacy. - Will stop dobutamine drip as her BP is starting to come up. - Renal function improving. - Lifevest just before discharge not ready at this time. - Will need placement. - Restart Lasix 40 mg PO daily on Friday.
[2019-10-28] MEDS: Pramipexole Di-HCl 0.25 MG TAB PO SCH (20:32)
[2019-10-28] MEDS: Atorvastatin Calcium 40 MG TAB PO SCH (20:35)
[2019-10-28] MEDS: Senokot 8.6 MG TAB PO SCH (20:36)
[2019-10-28] MEDS: traZODone HCl 50 MG TAB PO SCH (20:37)
[2019-10-29 04:43] LABS: INR-International Normal Ratio 2.7; Prothrombin Time 28.4 sec (12.0-14.7)
[2019-10-29 05:00] LABS: Anion Gap 11 mmol/L (10-20); BUN (Urea Nitrogen) 37 mg/dL (9.8-20.1); Calc. Creatinine Clearance 63 mL/min (70-130); Calcium 8.5 mg/dL (7.8-10.44); Carbon Dioxide 32 mmol/L (23-31); Chloride 91 mmol/L (98-107); Estimated GFR-MDRD 40; Glucose 101 mg/dL (83-110); Potassium 4.1 mmol/L (3.5-5.1); Sodium 130 mmol/L (136-145)
[2019-10-29] MEDS: Levothyroxine 150 MCG TAB PO SCH (06:05)
[2019-10-29] MEDS: Mometasone 200 MCG/Formoterol 5 MCG 120 PUFF INHALER INH SCH ×2 (07:21→18:19)
--- NOTE | 2019-10-29 07:40 | PDOC.HOSPP ---
- Subjective Encounter Date: 10/29/19 Encounter Time: 07:42 Subjective: sleeping without distress. sob markedly improved. - Objective Vital Signs & Weight: Vital Signs (12 hours) Temp Pulse Resp BP Pulse Ox 10/29/19 07:21 78 20 10/29/19 07:14 78 20 10/29/19 04:00 97.9 F 80 18 140/66 97 10/29/19 00:00 78 18 10/28/19 20:00 98.2 F 78 20 133/56 L 94 L 10/28/19 19:55 94 L Weight Admit Weight 239 lb 12.8 oz Weight 245 lb 9.6 oz Most Recent Monitor Data Heart Rate from ECG 102 NIBP 112/76 NIBP BP-Mean 88 Respiration from ECG 24 SpO2 99 I&O: 10/28/19 10/29/19 10/30/19 06:59 06:59 06:59 Intake Total 1876 1610 Output Total 2450 1950 Balance -844 -492 Result Diagrams: 10/25/19 04:31 10/29/19 04:23 Hospitalist ROS - Medication Medications: Active Medications Generic Name Dose Route Start Last Admin Trade Name Freq PRN Reason Stop Dose Admin Acetaminophen 650 mg 10/14/19 02:56 10/27/19 04:03 Tylenol PO 650 mg Q4H PRN Administration Headache/Fever or Pain Albuterol/Ipratropium 3 ml 10/13/19 07:00 10/29/19 07:14 Duoneb NEB 3 ml [id number] LISA Administration Atorvastatin Calcium 40 mg 10/13/19 21:00 10/28/19 20:35 Lipitor PO 40 mg HS LISA Administration Benzonatate 100 mg 10/19/19 13:30 10/28/19 16:24 Tessalon PO 100 mg Q4H PRN Administration Cough Bisacodyl 10 mg 10/16/19 09:32 10/27/19 12:30 Dulcolax PO 10 mg DAILYPRN PRN Administration Constipation Bisacodyl 10 mg 10/16/19 09:33 10/27/19 16:45 Dulcolax [place] 10 mg DAILYPRN PRN Administration Constipation Bismuth Subsalicylate 1 tab 10/16/19 13:36 10/16/19 14:02 Pepto Bismol PO 1 tab Q2H PRN Administration Diarrhea/Loose Stools Calcium/Vitamin D 1 tab 10/13/19 09:00 10/28/19 08:56 Caltrate 600 + Vit D PO 1 tab DAILY LISA Administration Carvedilol 3.125 mg 10/26/19 17:00 10/28/19 16:24 Coreg PO 3.125 mg BID-WM LISA Administration Docusate Sodium 100 mg 10/16/19 21:00 10/28/19 20:31 Colace PO 100 mg BID LISA Administration Ferrous Sulfate 325 mg 10/13/19 09:00 10/28/19 16:42 Feosol PO Not Given 0900,1700 [facility] Fish Oil 1,000 mg 10/13/19 09:00 10/28/19 08:56 Fish Oil PO 1,000 mg DAILY [facility] Administration Gabapentin 100 mg 10/23/19 21:00 10/28/19 20:36 Neurontin PO 100 mg TID [facility] Administration Guaifenesin/Dextromethorphan 15 ml 10/23/19 11:47 10/24/19 14:23 Robitussin Dm PO 15 ml Q4H PRN Administration Cough Hyoscyamine Sulfate 0.125 mg 10/23/19 11:47 10/23/19 15:22 Levsin Elixir PO 0.125 mg Q4H PRN Administration GI Cramping Iron/Minerals/Multivitamins 1 tab 10/13/19 09:00 10/28/19 08:56 Theragran M PO 1 tab DAILY [facility] Administration Levothyroxine Sodium 150 mcg 10/13/19 06:00 10/29/19 06:05 Synthroid PO 150 mcg 0600 [facility] Administration Magnesium Oxide 400 mg 10/18/19 09:00 10/28/19 20:31 Magnesium Oxide PO 400 mg BID [facility] Administration Mometasone Furoate/Formoterol Fumar 2 puff 10/14/19 18:30 10/29/19 07:21 Dulera 200 Mcg/5 Mcg Inhaler INH 2 puff BID-RT LISA Administration Morphine Sulfate 2 mg 10/13/19 18:05 10/25/19 13:30 Morphine SLOW IVP 2 mg Q2H PRN Administration Pain Nystatin 0 gm 10/15/19 10:56 10/24/19 14:26 Mycostatin Powder TOP 1 applic BID PRN Administration Topical Irritations Pantoprazole Sodium 40 mg 10/13/19 09:00 10/28/19 08:57 Protonix PO 40 mg DAILY LISA Administration Polyethylene Glycol 17 gm 10/22/19 09:00 10/28/19 08:57 Miralax PO 17 gm DAILY LISA Administration Pramipexole Dihydrochloride 0.5 mg 10/13/19 21:00 10/28/19 20:32 Mirapex PO 0.5 mg HS LISA Administration Prazosin HCl 1 mg 10/13/19 21:00 10/28/19 20:37 Minipress PO 1 mg HS LISA Administration Quetiapine Fumarate 300 mg 10/13/19 21:00 10/28/19 20:34 Seroquel PO 300 mg HS LISA Administration Senna 2 tab 10/21/19 21:00 10/28/19 20:36 Senokot PO 2 tab HS LISA Administration Sertraline HCl 100 mg 10/13/19 09:00 10/28/19 08:56 Zoloft PO 100 mg DAILY LISA Administration Tramadol HCl 50 mg 10/18/19 13:09 10/23/19 04:12 Ultram PO 50 mg Q6H PRN Administration Mild Pain (1-3) Tramadol HCl 100 mg 10/18/19 13:09 10/24/19 21:52 Ultram PO 100 mg Q6H PRN Administration Moderate Pain (4-6) Trazodone HCl 50 mg 10/13/19 21:00 10/28/19 20:37 Desyrel PO 50 mg HS LISA Administration - Exam General Appearance: awake alert Neck: no JVD Heart: irregular, II/IV Respiratory: CTAB Gastrointestinal: soft, normal bowel sounds Extremities: 1+ LE edema Hosp A/P (1) Acute on chronic systolic heart failure, NYHA class 4 Code(s): I50.23 - ACUTE ON CHRONIC SYSTOLIC (CONGESTIVE) HEART FAILURE Status : Acute (2) Atrial fibrillation Code(s): I48.91 - UNSPECIFIED ATRIAL FIBRILLATION Status: Acute Qualifiers: Atrial fibrillation type: paroxysmal Qualified Code(s): I48.0 - Paroxysmal atrial fibrillation (3) Ventricular tachycardia Code(s): I47.2 - VENTRICULAR TACHYCARDIA Status: Acute (4) Chronic anticoagulation Code(s): Z79.01 - [employer] (CURRENT) USE OF ANTICOAGULANTS Status: Chronic (5) Cardiomyopathy Code(s): I42.9 - CARDIOMYOPATHY, UNSPECIFIED Status: Chronic Qualifiers: Cardiomyopathy type: unspecified Qualified Code(s): I42.9 - Cardiomyopathy , unspecified (6) Chronic respiratory failure with hypoxia Code(s): J96.11 - CHRONIC RESPIRATORY FAILURE WITH HYPOXIA Status: Chronic (7) Elevated troponin Code(s): R79.89 - OTHER SPECIFIED ABNORMAL FINDINGS OF BLOOD CHEMISTRY Status : Acute (8) CAD (coronary artery disease) Code(s): I25.10 - ATHSCL HEART DISEASE OF [place] CORONARY ARTERY W/O ANG PCTRS Status: Chronic Qualifiers: Coronary Disease-Associated Artery/Lesion type: [place] artery [place] vs. transplanted heart: [place] heart Associated angina: without angina Qualified Code(s): I25.10 - Atherosclerotic heart disease of [place] coronary artery without angina pectoris (9) CKD (chronic kidney disease), stage III Code(s): N18.3 - CHRONIC KIDNEY DISEASE, STAGE 3 (MODERATE) Status: Chronic (10) COPD (chronic obstructive pulmonary disease) Status: Chronic Qualifiers: COPD type: chronic bronchitis (11) Dyslipidemia Code(s): E78.5 - HYPERLIPIDEMIA, UNSPECIFIED Status: Chronic (12) H/O mitral valve replacement with mechanical valve Code(s): Z95.2 - PRESENCE OF PROSTHETIC HEART VALVE Status: Chronic (13) HTN (hypertension) Code(s): I10 - ESSENTIAL (PRIMARY) HYPERTENSION Status: Chronic Qualifiers: Hypertension type: essential hypertension Qualified Code(s): I10 - Essential (primary) hypertension - Plan cont coreg, reinstitute po lasix 10/30/19 warfarin, PT/INR now therapeutic, dosage reduced to 2.5 mg/day due to INR>3.5 iv dobutamine Stopped yesterday discuss with Cardiology specifically entresto check renal fcn stable life vest at [place]
[2019-10-29] MEDS: Magnesium Oxide 400 MG TAB PO SCH ×2 (07:52→20:18)
[2019-10-29] MEDS: Calcium Carbonate 600 MG + Vit D TAB PO SCH (07:52)
[2019-10-29] MEDS: Carvedilol 3.125 MG TAB PO SCH ×2 (07:52→16:40)
[2019-10-29] MEDS: Multivitamin W/ Minerals 1 TAB PO SCH (07:52)
[2019-10-29] MEDS: Docusate 100 MG CAP PO SCH ×2 (07:52→20:18)
[2019-10-29] MEDS: Polyethylene Glycol 3350 17 GM Packet PO SCH (07:52)
[2019-10-29] MEDS: Fish Oil 1,000 MG CAP PO SCH (07:53)
[2019-10-29] MEDS: Ferrous Sulfate 325 MG TAB PO SCH ×2 (07:53→16:40)
[2019-10-29] MEDS: Gabapentin 100 MG CAP PO SCH ×3 (07:53→20:18)
[2019-10-29] MEDS: Bisacodyl 5 MG TAB PO PRN (08:03)
[2019-10-29] MEDS: Benzonatate 100 MG CAP PO PRN ×2 (08:43→15:25)
--- NOTE | 2019-10-29 14:52 | PDOC.CPN ---
- Subjective Date: 10/29/19 Time: 15:04 Interval history: The pt seen and examined. No overnight events. No cardiac complaints. - Objective Allergies/Adverse Reactions: Allergies Allergy/AdvReac Type Severity Reaction Status Date / Time codeine Allergy Verified 10/13/19 03:16 Sulfa (Sulfonamide Allergy Verified 10/13/19 03:16 Antibiotics) Visit Medications: Current Medications Acetaminophen (Tylenol) 650 mg [place] Q4H PRN PRN Reason: Headache/Fever or Pain Acetaminophen (Tylenol) 650 mg PO Q4H PRN PRN Reason: Headache/Fever or Pain Last Admin: 10/27/19 04:03 Dose: 650 mg Albuterol/Ipratropium (Duoneb) 3 ml NEB [id number] [facility] Last Admin: 10/29/19 13:31 Dose: 3 ml Albuterol/Ipratropium (Duoneb) 3 ml EZPAP Q2H PRN PRN Reason: SOB &/or Wheezing Atorvastatin Calcium (Lipitor) 40 mg PO HS [facility] Last Admin: 10/28/19 20:35 Dose: 40 mg Benzonatate (Tessalon) 100 mg PO Q4H PRN PRN Reason: Cough Last Admin: 10/29/19 08:43 Dose: 100 mg Bisacodyl (Dulcolax) 10 mg PO DAILYPRN PRN PRN Reason: Constipation Last Admin: 10/29/19 08:03 Dose: 10 mg Bisacodyl (Dulcolax) 10 mg AK DAILYPRN PRN PRN Reason: Constipation Last Admin: 10/27/19 16:45 Dose: 10 mg Bismuth Subsalicylate (Pepto Bismol) 1 tab PO Q2H PRN PRN Reason: Diarrhea/Loose Stools Last Admin: 10/16/19 14:02 Dose: 1 tab Calcium/Vitamin D (Caltrate 600 + Vit D) 1 tab PO DAILY [facility] Last Admin: 10/29/19 07:52 Dose: 1 tab Carvedilol (Coreg) 3.125 mg PO BID-[facility] Last Admin: 10/29/19 07:52 Dose: 3.125 mg Docusate Sodium (Colace) 100 mg PO BID [facility] Last Admin: 10/29/19 07:52 Dose: 100 mg Ferrous Sulfate (Feosol) 325 mg PO 0900,1700 [facility] Last Admin: 10/29/19 07:53 Dose: 325 mg Fish Oil (Fish Oil) 1,000 mg PO DAILY [facility] Last Admin: 10/29/19 07:53 Dose: 1,000 mg Gabapentin (Neurontin) 100 mg PO TID [facility] Last Admin: 10/29/19 07:53 Dose: 100 mg Guaifenesin/Dextromethorphan (Robitussin Dm) 15 ml PO Q4H PRN PRN Reason: Cough Last Admin: 10/24/19 14:23 Dose: 15 ml Hyoscyamine Sulfate (Levsin Elixir) 0.125 mg PO Q4H PRN PRN Reason: GI Cramping Last Admin: 10/23/19 15:22 Dose: 0.125 mg Iron/Minerals/Multivitamins (Theragran M) 1 tab PO DAILY [facility] Last Admin: 10/29/19 07:52 Dose: 1 tab Levothyroxine Sodium (Synthroid) 150 mcg PO 0600 [facility] Last Admin: 10/29/19 06:05 Dose: 150 mcg Magnesium Oxide (Magnesium Oxide) 400 mg PO BID [facility] Last Admin: 10/29/19 07:52 Dose: 400 mg Miscellaneous Medication (Pharmacy To Dose) 1 each PO PRN PRN PRN Reason: Pharmacy to dose Mometasone Furoate/Formoterol Fumar (Dulera 200 Mcg/5 Mcg Inhaler) 2 puff INH BID-RT [facility] Last Admin: 10/29/19 07:21 Dose: 2 puff Morphine Sulfate (Morphine) 2 mg SLOW IVP Q2H PRN PRN Reason: Pain Last Admin: 10/25/19 13:30 Dose: 2 mg Nitroglycerin (Nitrostat) 0.4 mg SL Q30M PRN PRN Reason: .CHEST PAIN Nystatin (Mycostatin Powder) 0 gm TOP BID PRN PRN Reason: Topical Irritations Last Admin: 10/24/19 14:26 Dose: 1 applic Pantoprazole Sodium (Protonix) 40 mg PO DAILY [facility] Last Admin: 10/29/19 07:53 Dose: 40 mg Polyethylene Glycol (Miralax) 17 gm PO DAILY [facility] Last Admin: 10/29/19 07:52 Dose: 17 gm Pramipexole Dihydrochloride (Mirapex) 0.5 mg PO HS [facility] Last Admin: 10/28/19 20:32 Dose: 0.5 mg Prazosin HCl (Minipress) 1 mg PO [facility] Last Admin: 10/28/19 20:37 Dose: 1 mg Quetiapine Fumarate (Seroquel) 300 mg PO [facility] Last Admin: 10/28/19 20:34 Dose: 300 mg Senna (Senokot) 2 tab PO [facility] Last Admin: 10/28/19 20:36 Dose: 2 tab Sertraline HCl (Zoloft) 100 mg PO DAILY [facility] Last Admin: 10/29/19 07:53 Dose: 100 mg Sterile Water (Bacteriostatic Water) 1 ml FS PRN PRN PRN Reason: RECONSTITUTION Tramadol HCl (Ultram) 50 mg PO Q6H PRN PRN Reason: Mild Pain (1-3) Last Admin: 10/23/19 04:12 Dose: 50 mg Tramadol HCl (Ultram) 100 mg PO Q6H PRN PRN Reason: Moderate Pain (4-6) Last Admin: 10/24/19 21:52 Dose: 100 mg Trazodone HCl (Desyrel) 50 mg PO [facility] Last Admin: 10/28/19 20:37 Dose: 50 mg Warfarin Sodium (Coumadin) 2.5 mg PO 1700 [facility] Vital Signs & Weight: Vital Signs Temp Pulse Resp BP Pulse Ox 10/29/19 13:31 88 20 10/29/19 11:16 96.3 F L 80 18 129/59 L 95 10/29/19 07:49 97.7 F 77 18 134/71 95 10/29/19 07:21 78 20 10/29/19 07:14 78 20 10/29/19 04:00 97.9 F 80 18 140/66 97 Admit Weight 239 lb 12.8 oz Weight 245 lb 9.6 oz - Physical Exam General: alert & oriented x3 HEENT: mucus membranes moist Neck: supple neck Cardiac: regular rate and rhythm, S1/S2 Lungs: decreased breath sounds Neuro: cranial nerve 2-12 intact Extremities: other: (generalized edema) Skin: other (bruises to BUE; Lt AKA) - Labs Result Diagrams: 10/25/19 04:31 10/29/19 04:23 - Telemetry Sinus rhythms and dysrhythmias: sinus rhythm - Assessment/Plan Assessment/Plan: 1. 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 2. Acute on chronic Systolic HF - On Coreg, Lasix 40mg qd from tomorrow; not on SURYA/ARB due to hx of CKD 3. CAD s/p multiple stents done with Dr. Pham at [facility] - on Coreg and Lipitor; not on ASA due to on Coumadin 4. Persistent afib - remain in Afib; INR per pharmacy. 5. S/P Mechanical mitral valve - on Coumadin 6. Hodgkins Lymphoma in remission 7. PVD s/p left leg AKA. 8. CKD - 9. HLD - on Statin 10. COPD with Home O2 MAR reviewed * Per Dr Pearson, Restart Lasix 40 mg PO daily on Friday. * Echo on 10/13/2019 with EF 20-25% (35-40% in 05/2019), mod LAE and LOGAN, mild- mod MR and AK, mod TR Pt. seen and eval. by me. I agree with the A/P by the [employer]. She is depressed about her situation. Chest : few basilar rales and mild expiratory wheeze. Irreg /irreg rhythm. Mild edema of right lower extremity. She may need further dobutaminie if if the renal function declines again.
[2019-10-29] MEDS: Guaifenesin DM 100-10/5 ML UDCUP PO PRN (15:25)
[2019-10-29] MEDS ORDERED: Warfarin Sodium 2.5 MG TAB PO SCH (17:00)
[2019-10-29] MEDS: Prazosin HCl 1 MG CAP PO SCH (20:18)
[2019-10-29] MEDS: Pramipexole Di-HCl 0.25 MG TAB PO SCH (20:18)
[2019-10-29] MEDS: traZODone HCl 50 MG TAB PO SCH (20:18)
[2019-10-29] MEDS: Senokot 8.6 MG TAB PO SCH (20:18)
[2019-10-29] MEDS: Atorvastatin Calcium 40 MG TAB PO SCH (20:18)
[2019-10-30 04:54] LABS: INR-International Normal Ratio 1.8
[2019-10-30] MEDS: Levothyroxine 150 MCG TAB PO SCH (05:22)
[2019-10-30 05:26] LABS: Anion Gap 11 mmol/L (10-20); BUN (Urea Nitrogen) 32 mg/dL (9.8-20.1); Calc. Creatinine Clearance 63 mL/min (70-130); Calcium 8.8 mg/dL (7.8-10.44); Carbon Dioxide 32 mmol/L (23-31); Chloride 94 mmol/L (98-107); Estimated GFR-MDRD 41; Glucose 102 mg/dL (83-110); Potassium 4.2 mmol/L (3.5-5.1); Sodium 133 mmol/L (136-145)
[2019-10-30] MEDS: Mometasone 200 MCG/Formoterol 5 MCG 120 PUFF INHALER INH SCH ×2 (07:30→18:52)
[2019-10-30] MEDS: Multivitamin W/ Minerals 1 TAB PO SCH (09:04)
[2019-10-30] MEDS: Magnesium Oxide 400 MG TAB PO SCH ×2 (09:04→21:05)
[2019-10-30] MEDS: Polyethylene Glycol 3350 17 GM Packet PO SCH (09:04)
[2019-10-30] MEDS: Gabapentin 100 MG CAP PO SCH ×3 (09:05→21:05)
[2019-10-30] MEDS: Carvedilol 3.125 MG TAB PO SCH ×2 (09:05→16:54)
[2019-10-30] MEDS: Furosemide 40 MG TAB PO SCH (09:05)
[2019-10-30] MEDS: Fish Oil 1,000 MG CAP PO SCH (09:05)
[2019-10-30] MEDS: Docusate 100 MG CAP PO SCH ×2 (09:05→21:05)
[2019-10-30] MEDS: Calcium Carbonate 600 MG + Vit D TAB PO SCH (09:05)
[2019-10-30] MEDS: Ferrous Sulfate 325 MG TAB PO SCH ×2 (09:09→21:05)
[2019-10-30] MEDS: traMADol HCl 50 MG TAB PO PRN ×2 (12:55→21:08)
--- NOTE | 2019-10-30 14:10 | PDOC.HOSPP ---
- Subjective Encounter Date: 10/30/19 Encounter Time: 11:30 Subjective: pt up in bed no complains - Objective Vital Signs & Weight: Vital Signs (12 hours) Temp Pulse Resp BP Pulse Ox 10/30/19 12:00 98.9 F 77 16 132/58 L 98 10/30/19 08:00 97.4 F L 73 17 114/58 L 97 10/30/19 07:30 79 16 10/30/19 07:23 79 16 10/30/19 04:00 97.2 F L 79 18 140/72 92 L Weight Admit Weight 239 lb 12.8 oz Weight 252 lb 4.8 oz Most Recent Monitor Data Heart Rate from ECG 102 NIBP 112/76 NIBP BP-Mean 88 Respiration from ECG 24 SpO2 99 I&O: 10/29/19 10/30/19 10/31/19 06:59 06:59 06:59 Intake Total 1610 1380 600 Output Total 1950 1975 414 Balance -340 -595 186 Result Diagrams: 10/25/19 04:31 10/30/19 04:09 Hospitalist ROS - Review of Systems Respiratory: denies: cough, dry, shortness of breath, hemoptysis, SOB with excertion, pleuritic pain, sputum, wheezing, other Cardiovascular: denies: chest pain, palpitations, orthopnea, paroxysmal noc. dyspnea, edema, light headedness, other Gastrointestinal: denies: nausea, vomiting, abdominal pain, diarrhea, constipation, melena, hematochezia, other - Medication Medications: Active Medications Generic Name Dose Route Start Last Admin Trade Name Freq PRN Reason Stop Dose Admin Acetaminophen 650 mg 10/14/19 02:56 10/27/19 04:03 Tylenol PO 650 mg Q4H PRN Administration Headache/Fever or Pain Albuterol/Ipratropium 3 ml 10/13/19 07:00 10/30/19 07:23 Duoneb NEB 3 ml [id number] LISA Administration Atorvastatin Calcium 40 mg 10/13/19 21:00 10/29/19 20:18 Lipitor PO 40 mg HS LISA Administration Benzonatate 100 mg 10/19/19 13:30 10/29/19 15:25 Tessalon PO 100 mg Q4H PRN Administration Cough Bisacodyl 10 mg 10/16/19 09:32 10/29/19 08:03 Dulcolax PO 10 mg DAILYPRN PRN Administration Constipation Bisacodyl 10 mg 10/16/19 09:33 10/27/19 16:45 Dulcolax [place] 10 mg DAILYPRN PRN Administration Constipation Bismuth Subsalicylate 1 tab 10/16/19 13:36 10/16/19 14:02 Pepto Bismol PO 1 tab Q2H PRN Administration Diarrhea/Loose Stools Calcium/Vitamin D 1 tab 10/13/19 09:00 10/30/19 09:05 Caltrate 600 + Vit D PO 1 tab DAILY LISA Administration Carvedilol 3.125 mg 10/26/19 17:00 10/30/19 09:05 Coreg PO 3.125 mg BID-WM LISA Administration Docusate Sodium 100 mg 10/16/19 21:00 10/30/19 09:05 Colace PO 100 mg BID LISA Administration Fish Oil 1,000 mg 10/13/19 09:00 10/30/19 09:05 Fish Oil PO 1,000 mg DAILY LISA Administration Furosemide 40 mg 10/30/19 07:30 10/30/19 09:05 Lasix PO 40 mg DAILY-AC LISA Administration Gabapentin 100 mg 10/23/19 21:00 10/30/19 09:05 Neurontin PO 100 mg TID LISA Administration Guaifenesin/Dextromethorphan 15 ml 10/23/19 11:47 10/29/19 15:25 Robitussin Dm PO 15 ml Q4H PRN Administration Cough Hyoscyamine Sulfate 0.125 mg 10/23/19 11:47 10/23/19 15:22 Levsin Elixir PO 0.125 mg Q4H PRN Administration GI Cramping Iron/Minerals/Multivitamins 1 tab 10/13/19 09:00 10/30/19 09:04 Theragran M PO 1 tab DAILY LISA Administration Levothyroxine Sodium 150 mcg 10/13/19 06:00 10/30/19 05:22 Synthroid PO 150 mcg 0600 LISA Administration Magnesium Oxide 400 mg 10/18/19 09:00 10/30/19 09:04 Magnesium Oxide PO 400 mg BID LISA Administration Mometasone Furoate/Formoterol Fumar 2 puff 10/14/19 18:30 10/30/19 07:30 Dulera 200 Mcg/5 Mcg Inhaler INH 2 puff BID-RT LISA Administration Morphine Sulfate 2 mg 10/13/19 18:05 10/25/19 13:30 Morphine SLOW IVP 2 mg Q2H PRN Administration Pain Nystatin 0 gm 10/15/19 10:56 10/24/19 14:26 Mycostatin Powder TOP 1 applic BID PRN Administration Topical Irritations Pantoprazole Sodium 40 mg 10/13/19 09:00 10/30/19 09:05 Protonix PO 40 mg DAILY LISA Administration Polyethylene Glycol 17 gm 10/22/19 09:00 10/30/19 09:04 Miralax PO 17 gm DAILY LISA Administration Pramipexole Dihydrochloride 0.5 mg 10/13/19 21:00 10/29/19 20:18 Mirapex PO 0.5 mg HS LISA Administration Prazosin HCl 1 mg 10/13/19 21:00 10/29/19 20:18 Minipress PO 1 mg HS LISA Administration Quetiapine Fumarate 300 mg 10/13/19 21:00 10/29/19 20:18 Seroquel PO 300 mg HS LISA Administration Senna 2 tab 10/21/19 21:00 10/29/19 20:18 Senokot PO 2 tab HS LISA Administration Sertraline HCl 100 mg 10/13/19 09:00 10/30/19 09:05 Zoloft PO 100 mg DAILY LISA Administration Tramadol HCl 50 mg 10/18/19 13:09 10/23/19 04:12 Ultram PO 50 mg Q6H PRN Administration Mild Pain (1-3) Tramadol HCl 100 mg 10/18/19 13:09 10/30/19 12:55 Ultram PO 100 mg Q6H PRN Administration Moderate Pain (4-6) Trazodone HCl 50 mg 10/13/19 21:00 10/29/19 20:18 Desyrel PO 50 mg HS LISA Administration - Exam Neck: negative: supple, symmetric, no JVD, no thyromegaly, no lymphadenopathy, no carotid bruit, JVD Heart: negative: RRR, no murmur, no gallops, no rubs, normal peripheral pulses, irregular, diminshed peripheral pulses, murmur present, II/IV, III/IV Respiratory: negative: CTAB, no wheezes, no rales, no ronchi, normal chest expansion, no tachypnea, normal percussion, rales, rhonchi, tachypneic, wheezes Extremities: 1+ LE edema Extremities - other findings: left aka Hosp A/P - Plan Hosp A/P (1) Acute on chronic systolic heart failure, NYHA class 4 Code(s): I50.23 - ACUTE ON CHRONIC SYSTOLIC (CONGESTIVE) HEART FAILURE Status : Acute (2) Atrial fibrillation Code(s): I48.91 - UNSPECIFIED ATRIAL FIBRILLATION Status: Acute Qualifiers: Atrial fibrillation type: paroxysmal Qualified Code(s): I48.0 - Paroxysmal atrial fibrillation (3) Ventricular tachycardia Code(s): I47.2 - VENTRICULAR TACHYCARDIA Status: Acute (4) Chronic anticoagulation Code(s): Z79.01 - [facility] (CURRENT) USE OF ANTICOAGULANTS Status: Chronic (5) Cardiomyopathy Code(s): I42.9 - CARDIOMYOPATHY, UNSPECIFIED Status: Chronic Qualifiers: Cardiomyopathy type: unspecified Qualified Code(s): I42.9 - Cardiomyopathy , unspecified (6) Chronic respiratory failure with hypoxia Code(s): J96.11 - CHRONIC RESPIRATORY FAILURE WITH HYPOXIA Status: Chronic (7) Elevated troponin Code(s): R79.89 - OTHER SPECIFIED ABNORMAL FINDINGS OF BLOOD CHEMISTRY Status : Acute (8) CAD (coronary artery disease) Code(s): I25.10 - ATHSCL HEART DISEASE OF [place] CORONARY ARTERY W/O ANG PCTRS Status: Chronic Qualifiers: Coronary Disease-Associated Artery/Lesion type: [place] artery [place] vs. transplanted heart: [place] heart Associated angina: without angina Qualified Code(s): I25.10 - Atherosclerotic heart disease of [place] coronary artery without angina pectoris (9) CKD (chronic kidney disease), stage III Code(s): N18.3 - CHRONIC KIDNEY DISEASE, STAGE 3 (MODERATE) Status: Chronic (10) COPD (chronic obstructive pulmonary disease) Status: Chronic Qualifiers: COPD type: chronic bronchitis (11) Dyslipidemia Code(s): E78.5 - HYPERLIPIDEMIA, UNSPECIFIED Status: Chronic (12) H/O mitral valve replacement with mechanical valve Code(s): Z95.2 - PRESENCE OF PROSTHETIC HEART VALVE Status: Chronic (13) HTN (hypertension) Code(s): I10 - ESSENTIAL (PRIMARY) HYPERTENSION Status: Chronic Qualifiers: Hypertension type: essential hypertension Qualified Code(s): I10 - Essential (primary) hypertension - Plan cont coreg, reinstitute po lasix 10/30/19 pt's inr has to be between 2.5-3.5 given that she has a mitral valve. will give her 5mg of coumadin today. PT to work with pt. dressing change per wound care for AKA of left leg. life vest at [place]
[2019-10-30] MEDS ORDERED: ALPRAZolam 0.25 MG TAB PO PRN (14:11)
[2019-10-30] MEDS ORDERED: Furosemide 40 MG/4 ML VIAL SLOW IVP SCH (14:15)
--- NOTE | 2019-10-30 15:36 | PDOC.CPN ---
- Subjective Date: 10/30/19 Time: 15:40 Interval history: the pt seen and examined. No overnight events. No cardiac complaints. - Objective Allergies/Adverse Reactions: Allergies Allergy/AdvReac Type Severity Reaction Status Date / Time codeine Allergy Verified 10/13/19 03:16 Sulfa (Sulfonamide Allergy Verified 10/13/19 03:16 Antibiotics) Visit Medications: Current Medications Acetaminophen (Tylenol) 650 mg [place] Q4H PRN PRN Reason: Headache/Fever or Pain Acetaminophen (Tylenol) 650 mg PO Q4H PRN PRN Reason: Headache/Fever or Pain Last Admin: 10/27/19 04:03 Dose: 650 mg Albuterol/Ipratropium (Duoneb) 3 ml NEB [id number] Last Admin: 10/30/19 13:55 Dose: 3 ml Albuterol/Ipratropium (Duoneb) 3 ml EZPAP Q2H PRN PRN Reason: SOB &/or Wheezing Alprazolam (Xanax) 0.25 mg PO QIDPRN PRN PRN Reason: Anxiety Atorvastatin Calcium (Lipitor) 40 mg PO [facility] Last Admin: 10/29/19 20:18 Dose: 40 mg Benzonatate (Tessalon) 100 mg PO Q4H PRN PRN Reason: Cough Last Admin: 10/29/19 15:25 Dose: 100 mg Bisacodyl (Dulcolax) 10 mg PO DAILYPRN PRN PRN Reason: Constipation Last Admin: 10/29/19 08:03 Dose: 10 mg Bisacodyl (Dulcolax) 10 mg [place] DAILYPRN PRN PRN Reason: Constipation Last Admin: 10/27/19 16:45 Dose: 10 mg Bismuth Subsalicylate (Pepto Bismol) 1 tab PO Q2H PRN PRN Reason: Diarrhea/Loose Stools Last Admin: 10/16/19 14:02 Dose: 1 tab Calcium/Vitamin D (Caltrate 600 + Vit D) 1 tab PO DAILY [facility] Last Admin: 10/30/19 09:05 Dose: 1 tab Carvedilol (Coreg) 3.125 mg PO BID-[facility] Last Admin: 10/30/19 09:05 Dose: 3.125 mg Docusate Sodium (Colace) 100 mg PO BID [facility] Last Admin: 10/30/19 09:05 Dose: 100 mg Ferrous Sulfate (Feosol) 325 mg PO 0900,2100 [facility] Fish Oil (Fish Oil) 1,000 mg PO DAILY [facility] Last Admin: 10/30/19 09:05 Dose: 1,000 mg Furosemide (Lasix) 40 mg PO DAILY-[facility] Last Admin: 10/30/19 09:05 Dose: 40 mg Furosemide (Lasix) 40 mg SLOW IVP NOW [facility] Stop: 10/30/19 18:00 Last Admin: 10/30/19 14:52 Dose: 40 mg Gabapentin (Neurontin) 100 mg PO TID [facility] Last Admin: 10/30/19 14:52 Dose: 100 mg Guaifenesin/Dextromethorphan (Robitussin Dm) 15 ml PO Q4H PRN PRN Reason: Cough Last Admin: 10/29/19 15:25 Dose: 15 ml Hyoscyamine Sulfate (Levsin Elixir) 0.125 mg PO Q4H PRN PRN Reason: GI Cramping Last Admin: 10/23/19 15:22 Dose: 0.125 mg Iron/Minerals/Multivitamins (Theragran M) 1 tab PO DAILY [facility] Last Admin: 10/30/19 09:04 Dose: 1 tab Levothyroxine Sodium (Synthroid) 150 mcg PO 0600 [facility] Last Admin: 10/30/19 05:22 Dose: 150 mcg Magnesium Oxide (Magnesium Oxide) 400 mg PO BID [facility] Last Admin: 10/30/19 09:04 Dose: 400 mg Miscellaneous Medication (Pharmacy To Dose) 1 each PO PRN PRN PRN Reason: Pharmacy to dose Mometasone Furoate/Formoterol Fumar (Dulera 200 Mcg/5 Mcg Inhaler) 2 puff INH BID-[facility] Last Admin: 10/30/19 07:30 Dose: 2 puff Nitroglycerin (Nitrostat) 0.4 mg SL Q30M PRN PRN Reason: .CHEST PAIN Nystatin (Mycostatin Powder) 0 gm TOP BID PRN PRN Reason: Topical Irritations Last Admin: 10/24/19 14:26 Dose: 1 applic Pantoprazole Sodium (Protonix) 40 mg PO DAILY [facility] Last Admin: 10/30/19 09:05 Dose: 40 mg Polyethylene Glycol (Miralax) 17 gm PO DAILY [facility] Last Admin: 10/30/19 09:04 Dose: 17 gm Pramipexole Dihydrochloride (Mirapex) 0.5 mg PO [facility] Last Admin: 10/29/19 20:18 Dose: 0.5 mg Prazosin HCl (Minipress) 1 mg PO [facility] Last Admin: 10/29/19 20:18 Dose: 1 mg Quetiapine Fumarate (Seroquel) 300 mg PO [facility] Last Admin: 10/29/19 20:18 Dose: 300 mg Senna (Senokot) 2 tab PO [facility] Last Admin: 10/29/19 20:18 Dose: 2 tab Sertraline HCl (Zoloft) 100 mg PO DAILY [facility] Last Admin: 10/30/19 09:05 Dose: 100 mg Sterile Water (Bacteriostatic Water) 1 ml FS PRN PRN PRN Reason: RECONSTITUTION Tramadol HCl (Ultram) 50 mg PO Q6H PRN PRN Reason: Mild Pain (1-3) Last Admin: 10/23/19 04:12 Dose: 50 mg Tramadol HCl (Ultram) 100 mg PO Q6H PRN PRN Reason: Moderate Pain (4-6) Last Admin: 10/30/19 12:55 Dose: 100 mg Trazodone HCl (Desyrel) 50 mg PO [facility] Last Admin: 10/29/19 20:18 Dose: 50 mg Warfarin Sodium (Coumadin) 5 mg PO 1700 [facility] Vital Signs & Weight: Vital Signs Temp Pulse Resp BP Pulse Ox 10/30/19 15:04 98.2 F 82 18 136/68 97 10/30/19 14:23 131/66 10/30/19 13:55 84 16 10/30/19 12:00 98.9 F 77 16 132/58 L 98 10/30/19 08:00 97.4 F L 73 17 114/58 L 97 10/30/19 07:30 79 16 10/30/19 07:23 79 16 10/30/19 04:00 97.2 F L 79 18 140/72 92 L Admit Weight 239 lb 12.8 oz Weight 252 lb 4.8 oz - Physical Exam General: alert & oriented x3 HEENT: mucus membranes moist Neck: supple neck Cardiac: regular rate and rhythm, S1/S2 Extremities: other: (3+ pitting RLE edema) - Labs Result Diagrams: 10/25/19 04:31 10/30/19 04:09 - Telemetry Sinus rhythms and dysrhythmias: sinus rhythm - Assessment/Plan Assessment/Plan: 1. Dilated CM with EF 20-25% (35-40% in 05/2019) - Dobutamin was off on 2019; on Lasix 40mg po qd; however, She may need further dobutaminie if if the renal function declines again. D/c with LifeVest for 3 months; once Renal function is stable, may start Entresto? 2. Acute on chronic Systolic HF - On Coreg, Lasix 40mg qd; not on SURYA/ARB due to hx of CKD 3. CAD s/p multiple stents done with Dr. Pham at [facility] - on Coreg and Lipitor; not on ASA due to on Coumadin 4. Persistent afib - remain in Afib; INR per pharmacy. 5. S/P Mechanical mitral valve - on Coumadin 6. Hodgkins Lymphoma in remission 7. PVD s/p left leg AKA. 8. CKD - 9. HLD - on Statin 10. COPD with Home O2 MAR reviewed * Echo on 10/13/2019 with EF 20-25% (35-40% in 05/2019), mod LAE and LOGAN, mild- mod MR and MI, mod TR
[2019-10-30] MEDS ORDERED: Warfarin Sodium 5 MG TAB PO SCH (17:00)
[2019-10-30] MEDS: Atorvastatin Calcium 40 MG TAB PO SCH (21:05)
[2019-10-30] MEDS: traZODone HCl 50 MG TAB PO SCH (21:05)
[2019-10-30] MEDS: Pramipexole Di-HCl 0.25 MG TAB PO SCH (21:05)
[2019-10-30] MEDS: Senokot 8.6 MG TAB PO SCH (21:05)
[2019-10-30] MEDS: Prazosin HCl 1 MG CAP PO SCH (21:06)
[2019-10-30] MEDS: Benzonatate 100 MG CAP PO PRN (21:07)
[2019-10-31 04:39] LABS: INR-International Normal Ratio 1.5
[2019-10-31] MEDS: Levothyroxine 150 MCG TAB PO SCH (04:55)
[2019-10-31] MEDS: Mometasone 200 MCG/Formoterol 5 MCG 120 PUFF INHALER INH SCH ×2 (07:18→18:13)
[2019-10-31] MEDS: Fish Oil 1,000 MG CAP PO SCH (08:24)
[2019-10-31] MEDS: Docusate 100 MG CAP PO SCH ×2 (08:24→21:03)
[2019-10-31] MEDS: Furosemide 40 MG TAB PO SCH (08:24)
[2019-10-31] MEDS: Polyethylene Glycol 3350 17 GM Packet PO SCH (08:24)
[2019-10-31] MEDS: Ferrous Sulfate 325 MG TAB PO SCH ×2 (08:24→21:03)
[2019-10-31] MEDS: Multivitamin W/ Minerals 1 TAB PO SCH (08:24)
[2019-10-31] MEDS: Gabapentin 100 MG CAP PO SCH ×3 (08:24→21:04)
[2019-10-31] MEDS: Magnesium Oxide 400 MG TAB PO SCH ×2 (08:24→21:04)
[2019-10-31] MEDS: Calcium Carbonate 600 MG + Vit D TAB PO SCH (08:24)
[2019-10-31] MEDS: Enoxaparin Sodium 100 MG/ML SYRINGE SC SCH ×2 (08:24→21:02)
[2019-10-31] MEDS: Carvedilol 3.125 MG TAB PO SCH ×2 (08:24→16:43)
[2019-10-31] MEDS: Benzonatate 100 MG CAP PO PRN (08:37)
--- NOTE | 2019-10-31 11:01 | RAD ---
PORTABLE CHEST 1 VIEW: DATE: 10/31/2019. TIME: 10:48 AM. HISTORY: Cough. COMPARISON: 10/18/2019. FINDINGS/IMPRESSION: There are changes of median sternotomy and valvular replacement surgery. The heart is enlarged. No lobar consolidation, pneumothoraces, tea pulmonary edema, or large effus ions are seen. POS: OFF
--- NOTE | 2019-10-31 14:54 | PDOC.HOSPP ---
- Subjective Encounter Date: 10/31/19 Encounter Time: 12:30 Subjective: pt up in bed no complains. - Objective Vital Signs & Weight: Vital Signs (12 hours) Temp Pulse Resp BP Pulse Ox 10/31/19 13:13 80 16 10/31/19 11:51 97.3 F L 81 15 123/52 L 98 10/31/19 08:23 97.7 F 75 15 120/78 95 10/31/19 07:18 71 16 10/31/19 07:11 71 16 10/31/19 02:53 97.8 F 71 18 128/74 94 L Weight Admit Weight 239 lb 12.8 oz Weight 247 lb 3.2 oz Most Recent Monitor Data Heart Rate from ECG 102 NIBP 112/76 NIBP BP-Mean 88 Respiration from ECG 24 SpO2 99 I&O: 10/30/19 10/31/19 11/01/19 06:59 06:59 06:59 Intake Total 1380 1100 Output Total 7096 3444 Balance -031 -4027 Result Diagrams: 10/25/19 04:31 10/30/19 04:09 Hospitalist ROS - Review of Systems Cardiovascular: denies: chest pain, palpitations, orthopnea, paroxysmal noc. dyspnea, edema, light headedness, other Gastrointestinal: denies: nausea, vomiting, abdominal pain, diarrhea, constipation, melena, hematochezia, other Genitourinary: denies: dysuria, frequency, incontinence, hematuria, retention, other - Medication Medications: Active Medications Generic Name Dose Route Start Last Admin Trade Name Freq PRN Reason Stop Dose Admin Acetaminophen 650 mg 10/14/19 02:56 10/27/19 04:03 Tylenol PO 650 mg Q4H PRN Administration Headache/Fever or Pain Albuterol/Ipratropium 3 ml 10/13/19 07:00 10/31/19 13:13 Duoneb NEB 3 ml [id number] LISA Administration Alprazolam 0.25 mg 10/30/19 14:11 10/30/19 21:05 Xanax PO 0.25 mg QIDPRN PRN Administration Anxiety Atorvastatin Calcium 40 mg 10/13/19 21:00 10/30/19 21:05 Lipitor PO 40 mg HS LISA Administration Bisacodyl 10 mg 10/16/19 09:32 10/29/19 08:03 Dulcolax PO 10 mg DAILYPRN PRN Administration Constipation Bisacodyl 10 mg 10/16/19 09:33 10/27/19 16:45 Dulcolax [place] 10 mg DAILYPRN PRN Administration Constipation Bismuth Subsalicylate 1 tab 10/16/19 13:36 10/16/19 14:02 Pepto Bismol PO 1 tab Q2H PRN Administration Diarrhea/Loose Stools Calcium/Vitamin D 1 tab 10/13/19 09:00 10/31/19 08:24 Caltrate 600 + Vit D PO 1 tab DAILY LISA Administration Carvedilol 3.125 mg 10/26/19 17:00 10/31/19 08:24 Coreg PO 3.125 mg BID-WM LISA Administration Docusate Sodium 100 mg 10/16/19 21:00 10/31/19 08:24 Colace PO 100 mg BID LISA Administration Enoxaparin Sodium 100 mg 10/31/19 09:00 10/31/19 08:24 Lovenox SC 100 mg 09,2099 LISA Administration Ferrous Sulfate 325 mg 10/30/19 21:00 10/31/19 08:24 Feosol PO 325 mg 0900,2099 LISA Administration Fish Oil 1,000 mg 10/13/19 09:00 10/31/19 08:24 Fish Oil PO 1,000 mg DAILY LISA Administration Furosemide 40 mg 10/30/19 07:30 10/31/19 08:24 Lasix PO 40 mg DAILY-AC LISA Administration Gabapentin 100 mg 10/23/19 21:00 10/31/19 08:24 Neurontin PO 100 mg TID LISA Administration Guaifenesin/Dextromethorphan 15 ml 10/23/19 11:47 10/29/19 15:25 Robitussin Dm PO 15 ml Q4H PRN Administration Cough Hyoscyamine Sulfate 0.125 mg 10/23/19 11:47 10/23/19 15:22 Levsin Elixir PO 0.125 mg Q4H PRN Administration GI Cramping Iron/Minerals/Multivitamins 1 tab 10/13/19 09:00 10/31/19 08:24 Theragran M PO 1 tab DAILY LISA Administration Levothyroxine Sodium 150 mcg 10/13/19 06:00 10/31/19 04:55 Synthroid PO 150 mcg 0600 LISA Administration Magnesium Oxide 400 mg 10/18/19 09:00 10/31/19 08:24 Magnesium Oxide PO 400 mg BID LISA Administration Mometasone Furoate/Formoterol Fumar 2 puff 10/14/19 18:30 10/31/19 07:18 Dulera 200 Mcg/5 Mcg Inhaler INH 2 puff BID-RT LISA Administration Nystatin 0 gm 10/15/19 10:56 10/24/19 14:26 Mycostatin Powder TOP 1 applic BID PRN Administration Topical Irritations Pantoprazole Sodium 40 mg 10/13/19 09:00 10/31/19 08:24 Protonix PO 40 mg DAILY LISA Administration Polyethylene Glycol 17 gm 10/22/19 09:00 10/31/19 08:24 Miralax PO 17 gm DAILY LISA Administration Pramipexole Dihydrochloride 0.5 mg 10/13/19 21:00 10/30/19 21:05 Mirapex PO 0.5 mg HS LISA Administration Prazosin HCl 1 mg 10/13/19 21:00 10/30/19 21:06 Minipress PO 1 mg HS LISA Administration Quetiapine Fumarate 300 mg 10/13/19 21:00 10/30/19 21:05 Seroquel PO 300 mg HS LISA Administration Senna 2 tab 10/21/19 21:00 10/30/19 21:05 Senokot PO 2 tab HS LISA Administration Sertraline HCl 100 mg 10/13/19 09:00 10/31/19 08:24 Zoloft PO 100 mg DAILY LISA Administration Tramadol HCl 50 mg 10/18/19 13:09 10/23/19 04:12 Ultram PO 50 mg Q6H PRN Administration Mild Pain (1-3) Tramadol HCl 100 mg 10/18/19 13:09 10/30/19 21:08 Ultram PO 100 mg Q6H PRN Administration Moderate Pain (4-6) Trazodone HCl 50 mg 10/13/19 21:00 10/30/19 21:05 Desyrel PO 50 mg HS LISA Administration Warfarin Sodium 5 mg 10/30/19 17:00 10/30/19 16:55 Coumadin PO 5 mg 1700 LISA Administration - Exam Neck: negative: supple, symmetric, no JVD, no thyromegaly, no lymphadenopathy, no carotid bruit, JVD Heart: negative: RRR, no murmur, no gallops, no rubs, normal peripheral pulses, irregular, diminshed peripheral pulses, murmur present, II/IV, III/IV Respiratory: negative: CTAB, no wheezes, no rales, no ronchi, normal chest expansion, no tachypnea, normal percussion, rales, rhonchi, tachypneic, wheezes Gastrointestinal: negative: soft, non-tender, non-distended, normal bowel sounds , no palpable masses, no hepatomegaly, no splenomegaly, no bruit, no guarding, no rigidity, tender to palpation, distended, diminished bowl sounds, voluntary guarding Extremities: 2+ LE edema Extremities - other findings: left aka Hosp A/P - Plan Hosp A/P (1) Acute on chronic systolic heart failure, NYHA class 4 Code(s): I50.23 - ACUTE ON CHRONIC SYSTOLIC (CONGESTIVE) HEART FAILURE Status : Acute (2) Atrial fibrillation Code(s): I48.91 - UNSPECIFIED ATRIAL FIBRILLATION Status: Acute Qualifiers: Atrial fibrillation type: paroxysmal Qualified Code(s): I48.0 - Paroxysmal atrial fibrillation (3) Ventricular tachycardia Code(s): I47.2 - VENTRICULAR TACHYCARDIA Status: Acute (4) Chronic anticoagulation Code(s): Z79.01 - HALF-WAY (CURRENT) USE OF ANTICOAGULANTS Status: Chronic (5) Cardiomyopathy Code(s): I42.9 - CARDIOMYOPATHY, UNSPECIFIED Status: Chronic Qualifiers: Cardiomyopathy type: unspecified Qualified Code(s): I42.9 - Cardiomyopathy , unspecified (6) Chronic respiratory failure with hypoxia Code(s): J96.11 - CHRONIC RESPIRATORY FAILURE WITH HYPOXIA Status: Chronic (7) Elevated troponin Code(s): R79.89 - OTHER SPECIFIED ABNORMAL FINDINGS OF BLOOD CHEMISTRY Status : Acute (8) CAD (coronary artery disease) Code(s): I25.10 - ATHSCL HEART DISEASE OF [place] CORONARY ARTERY W/O ANG PCTRS Status: Chronic Qualifiers: Coronary Disease-Associated Artery/Lesion type: [place] artery [place] vs. transplanted heart: [place] heart Associated angina: without angina Qualified Code(s): I25.10 - Atherosclerotic heart disease of [place] coronary artery without angina pectoris (9) CKD (chronic kidney disease), stage III Code(s): N18.3 - CHRONIC KIDNEY DISEASE, STAGE 3 (MODERATE) Status: Chronic (10) COPD (chronic obstructive pulmonary disease) Status: Chronic Qualifiers: COPD type: chronic bronchitis (11) Dyslipidemia Code(s): E78.5 - HYPERLIPIDEMIA, UNSPECIFIED Status: Chronic (12) H/O mitral valve replacement with mechanical valve Code(s): Z95.2 - PRESENCE OF PROSTHETIC HEART VALVE Status: Chronic (13) HTN (hypertension) Code(s): I10 - ESSENTIAL (PRIMARY) HYPERTENSION Status: Chronic Qualifiers: Hypertension type: essential hypertension Qualified Code(s): I10 - Essential (primary) hypertension - Plan cont coreg, reinstitute po lasix 10/30/19 pt's inr has to be between 2.5-3.5 given that she has a mitral valve. will give her 5mg of coumadin today. PT to work with pt. dressing change per wound care for AKA of left leg. life vest at [place] 10/30 will start pt on Lovenox since her inr is low.
[2019-10-31] MEDS: Benzonatate 100 MG CAP PO SCH ×2 (14:55→21:04)
--- NOTE | 2019-10-31 15:57 | PDOC.CPN ---
- Subjective Date: 10/31/19 Time: 16:02 Interval history: The pt seen and examined. No overnight events. No cardiac complaints. - Objective Allergies/Adverse Reactions: Allergies Allergy/AdvReac Type Severity Reaction Status Date / Time codeine Allergy Verified 10/13/19 03:16 Sulfa (Sulfonamide Allergy Verified 10/13/19 03:16 Antibiotics) Visit Medications: Current Medications Acetaminophen (Tylenol) 650 mg UT Q4H PRN PRN Reason: Headache/Fever or Pain Acetaminophen (Tylenol) 650 mg PO Q4H PRN PRN Reason: Headache/Fever or Pain Last Admin: 10/27/19 04:03 Dose: 650 mg Albuterol/Ipratropium (Duoneb) 3 ml NEB [id number] [facility] Last Admin: 10/31/19 13:13 Dose: 3 ml Albuterol/Ipratropium (Duoneb) 3 ml EZPAP Q2H PRN PRN Reason: SOB &/or Wheezing Alprazolam (Xanax) 0.25 mg PO QIDPRN PRN PRN Reason: Anxiety Last Admin: 10/30/19 21:05 Dose: 0.25 mg Atorvastatin Calcium (Lipitor) 40 mg PO HS [facility] Last Admin: 10/30/19 21:05 Dose: 40 mg Benzonatate (Tessalon) 100 mg PO Q6H [facility] Last Admin: 10/31/19 14:55 Dose: 100 mg Bisacodyl (Dulcolax) 10 mg PO DAILYPRN PRN PRN Reason: Constipation Last Admin: 10/29/19 08:03 Dose: 10 mg Bisacodyl (Dulcolax) 10 mg UT DAILYPRN PRN PRN Reason: Constipation Last Admin: 10/27/19 16:45 Dose: 10 mg Bismuth Subsalicylate (Pepto Bismol) 1 tab PO Q2H PRN PRN Reason: Diarrhea/Loose Stools Last Admin: 10/16/19 14:02 Dose: 1 tab Calcium/Vitamin D (Caltrate 600 + Vit D) 1 tab PO DAILY [facility] Last Admin: 10/31/19 08:24 Dose: 1 tab Carvedilol (Coreg) 3.125 mg PO BID-[facility] Last Admin: 10/31/19 08:24 Dose: 3.125 mg Docusate Sodium (Colace) 100 mg PO BID [facility] Last Admin: 10/31/19 08:24 Dose: 100 mg Enoxaparin Sodium (Lovenox) 100 mg SC 899,2099 [facility] Last Admin: 10/31/19 08:24 Dose: 100 mg Ferrous Sulfate (Feosol) 325 mg PO 899,2099 [facility] Last Admin: 10/31/19 08:24 Dose: 325 mg Fish Oil (Fish Oil) 1,000 mg PO DAILY [facility] Last Admin: 10/31/19 08:24 Dose: 1,000 mg Furosemide (Lasix) 40 mg PO DAILY-AC [facility] Last Admin: 10/31/19 08:24 Dose: 40 mg Gabapentin (Neurontin) 100 mg PO TID [facility] Last Admin: 10/31/19 14:55 Dose: 100 mg Guaifenesin/Dextromethorphan (Robitussin Dm) 15 ml PO Q4H PRN PRN Reason: Cough Last Admin: 10/29/19 15:25 Dose: 15 ml Hyoscyamine Sulfate (Levsin Elixir) 0.125 mg PO Q4H PRN PRN Reason: GI Cramping Last Admin: 10/23/19 15:22 Dose: 0.125 mg Iron/Minerals/Multivitamins (Theragran M) 1 tab PO DAILY [facility] Last Admin: 10/31/19 08:24 Dose: 1 tab Levothyroxine Sodium (Synthroid) 150 mcg PO 06 [facility] Last Admin: 10/31/19 04:55 Dose: 150 mcg Magnesium Oxide (Magnesium Oxide) 400 mg PO BID [facility] Last Admin: 10/31/19 08:24 Dose: 400 mg Miscellaneous Medication (Pharmacy To Dose) 1 each PO PRN PRN PRN Reason: Pharmacy to dose Mometasone Furoate/Formoterol Fumar (Dulera 200 Mcg/5 Mcg Inhaler) 2 puff INH BID-RT [facility] Last Admin: 10/31/19 07:18 Dose: 2 puff Nitroglycerin (Nitrostat) 0.4 mg SL Q30M PRN PRN Reason: .CHEST PAIN Nystatin (Mycostatin Powder) 0 gm TOP BID PRN PRN Reason: Topical Irritations Last Admin: 10/24/19 14:26 Dose: 1 applic Pantoprazole Sodium (Protonix) 40 mg PO DAILY [facility] Last Admin: 10/31/19 08:24 Dose: 40 mg Polyethylene Glycol (Miralax) 17 gm PO DAILY [facility] Last Admin: 10/31/19 08:24 Dose: 17 gm Pramipexole Dihydrochloride (Mirapex) 0.5 mg PO [facility] Last Admin: 10/30/19 21:05 Dose: 0.5 mg Prazosin HCl (Minipress) 1 mg PO [facility] Last Admin: 10/30/19 21:06 Dose: 1 mg Quetiapine Fumarate (Seroquel) 300 mg PO [facility] Last Admin: 10/30/19 21:05 Dose: 300 mg Senna (Senokot) 2 tab PO [facility] Last Admin: 10/30/19 21:05 Dose: 2 tab Sertraline HCl (Zoloft) 100 mg PO DAILY [facility] Last Admin: 10/31/19 08:24 Dose: 100 mg Sterile Water (Bacteriostatic Water) 1 ml FS PRN PRN PRN Reason: RECONSTITUTION Tramadol HCl (Ultram) 50 mg PO Q6H PRN PRN Reason: Mild Pain (1-3) Last Admin: 10/23/19 04:12 Dose: 50 mg Tramadol HCl (Ultram) 100 mg PO Q6H PRN PRN Reason: Moderate Pain (4-6) Last Admin: 10/30/19 21:08 Dose: 100 mg Trazodone HCl (Desyrel) 50 mg PO [facility] Last Admin: 10/30/19 21:05 Dose: 50 mg Warfarin Sodium (Coumadin) 5 mg PO 1700 [facility] Last Admin: 10/30/19 16:55 Dose: 5 mg Vital Signs & Weight: Vital Signs Temp Pulse Resp BP Pulse Ox 10/31/19 15:55 97.8 F 86 16 110/54 L 89 L 10/31/19 13:13 80 16 10/31/19 11:51 97.3 F L 81 15 123/52 L 98 10/31/19 08:23 97.7 F 75 15 120/78 95 10/31/19 07:18 71 16 10/31/19 07:11 71 16 Admit Weight 239 lb 12.8 oz Weight 247 lb 3.2 oz - Physical Exam General: alert & oriented x3 HEENT: mucus membranes moist Neck: supple neck Cardiac: regular rate and rhythm, S1/S2 Lungs: decreased breath sounds Extremities: other: (2+ pitting RLE edema: Lt AKA) - Labs Result Diagrams: 10/25/19 04:31 10/30/19 04:09 - Telemetry Sinus rhythms and dysrhythmias: sinus rhythm - Assessment/Plan Assessment/Plan: 1. Dilated CM with EF 20-25% (35-40% in 05/2019) - Dobutamin was off on 2019; on Lasix 40mg po qd; however, She may need further dobutaminie if if the renal function declines again. D/c with LifeVest for 3 months; once Renal function is stable, may start Entresto? 2. Acute on chronic Systolic HF - On Coreg, Lasix 40mg qd; not on SURYA/ARB due to hx of CKD 3. CAD s/p multiple stents done with Dr. Pham at [facility] - on Coreg and Lipitor; not on ASA due to on Coumadin 4. Persistent afib - remain in Afib; INR per pharmacy. 5. S/P Mechanical mitral valve - on Coumadin; Lovenox was started from today for low INR. 6. Hodgkins Lymphoma in remission 7. PVD s/p left leg AKA. 8. CKD - 9. HLD - on Statin 10. COPD with Home O2 MAR reviewed * Echo on 10/13/2019 with EF 20-25% (35-40% in 05/2019), mod LAE and LOGAN, mild- mod MR and UT, mod TR * Dr Pearson's pt
[2019-10-31] MEDS: traMADol HCl 50 MG TAB PO PRN (16:43)
[2019-10-31] MEDS: Warfarin Sodium 5 MG TAB PO SCH (16:44)
[2019-10-31] MEDS: Atorvastatin Calcium 40 MG TAB PO SCH (21:02)
[2019-10-31] MEDS: Prazosin HCl 1 MG CAP PO SCH (21:02)
[2019-10-31] MEDS: Senokot 8.6 MG TAB PO SCH (21:03)
[2019-10-31] MEDS: Pramipexole Di-HCl 0.25 MG TAB PO SCH (21:04)
[2019-10-31] MEDS: traZODone HCl 50 MG TAB PO SCH (21:05)
[2019-10-31 23:16] LABS: #Eosinphils 0.2 thou/uL (0.0-0.7); #Lymphocytes 0.8 thou/uL (1.20-3.40); #Monocytes 0.7 thou/uL (0.11-0.59); #Neutrophils 5.9 thou/uL (1.40-6.50); %Basophils 0.3 % (0.0-1.0); %Eosinophils 2.7 % (0.0-10.0); %Lymphocytes 10.8 % (21.0-51.0); %Monocytes 9.6 % (0.0-10.0); %Neutrophils 76.7 % (42.0-75.0); Hemoglobin 10.5 g/dL (12.0-16.0); Mean Corpuscular HGB CONC 32.8 g/dL (32.0-36.0); Mean Corpuscular Hemoglobin 30.4 pg (27.0-31.0); Mean Corpuscular Volume 92.6 fL (78.0-98.0); Mean Platelet Volume 8.4 fL (7.4-10.4); Platelet Count 228 thou/uL (130-400); RBC Distribution Width 16.6 % (11.5-14.5); Red Blood Cell (RBC) Count 3.47 mill/uL (4.20-5.40); White Blood Cell (WBC) Count 7.7 thou/uL (4.8-10.8)
[2019-11-01] MEDS: Benzonatate 100 MG CAP PO SCH ×4 (04:15→21:15)
[2019-11-01 04:17] LABS: #Eosinphils 0.2 thou/uL (0.0-0.7); #Lymphocytes 0.9 thou/uL (1.20-3.40); #Monocytes 0.6 thou/uL (0.11-0.59); %Basophils 0.4 % (0.0-1.0); %Eosinophils 2.7 % (0.0-10.0); %Lymphocytes 13.8 % (21.0-51.0); %Monocytes 9.1 % (0.0-10.0); %Neutrophils 73.9 % (42.0-75.0); Hemoglobin 10.1 g/dL (12.0-16.0); Mean Corpuscular HGB CONC 31.9 g/dL (32.0-36.0); Mean Corpuscular Hemoglobin 29.5 pg (27.0-31.0); Mean Corpuscular Volume 92.4 fL (78.0-98.0); Mean Platelet Volume 8.5 fL (7.4-10.4); Platelet Count 207 thou/uL (130-400); RBC Distribution Width 16.5 % (11.5-14.5); Red Blood Cell (RBC) Count 3.42 mill/uL (4.20-5.40); White Blood Cell (WBC) Count 6.7 thou/uL (4.8-10.8)
[2019-11-01 04:21] LABS: INR-International Normal Ratio 1.6; Prothrombin Time 18.9 sec (12.0-14.7)
[2019-11-01 04:36] LABS: ALT (SGPT) 17 U/L (8-55); AST (SGOT) 22 U/L (5-34); Albumin 2.8 g/dL (3.4-4.8); Alkaline Phosphatase 118 U/L (40-110); Anion Gap 10 mmol/L (10-20); BUN (Urea Nitrogen) 32 mg/dL (9.8-20.1); Bilirubin, Total 0.5 mg/dL (0.2-1.2); Calc. Creatinine Clearance 61 mL/min (70-130); Calcium 8.5 mg/dL (7.8-10.44); Carbon Dioxide 34 mmol/L (23-31); Chloride 92 mmol/L (98-107); Estimated GFR-MDRD 38; Globulin 2.4 g/dL (2.4-3.5); Glucose 137 mg/dL (83-110); Potassium 4.1 mmol/L (3.5-5.1); Protein, Total 5.2 g/dL (6.0-8.3); Sodium 132 mmol/L (136-145)
[2019-11-01] MEDS: Levothyroxine 150 MCG TAB PO SCH (05:21)
[2019-11-01] MEDS: Mometasone 200 MCG/Formoterol 5 MCG 120 PUFF INHALER INH SCH ×2 (06:36→18:39)
[2019-11-01] MEDS: Furosemide 40 MG TAB PO SCH (08:48)
[2019-11-01] MEDS: Fish Oil 1,000 MG CAP PO SCH (08:48)
[2019-11-01] MEDS: Calcium Carbonate 600 MG + Vit D TAB PO SCH (08:49)
[2019-11-01] MEDS: Docusate 100 MG CAP PO SCH ×2 (08:49→21:26)
[2019-11-01] MEDS: Enoxaparin Sodium 100 MG/ML SYRINGE SC SCH ×2 (08:49→21:15)
[2019-11-01] MEDS: Gabapentin 100 MG CAP PO SCH ×3 (08:49→21:15)
[2019-11-01] MEDS: Carvedilol 3.125 MG TAB PO SCH ×2 (08:49→17:18)
[2019-11-01] MEDS: Magnesium Oxide 400 MG TAB PO SCH ×2 (08:49→21:14)
[2019-11-01] MEDS: Ferrous Sulfate 325 MG TAB PO SCH ×2 (08:49→21:15)
[2019-11-01] MEDS: Polyethylene Glycol 3350 17 GM Packet PO SCH (08:49)
[2019-11-01] MEDS: Multivitamin W/ Minerals 1 TAB PO SCH (08:49)
--- NOTE | 2019-11-01 15:30 | PDOC.HOSPP ---
- Subjective Encounter Date: 11/01/19 Encounter Time: 11:15 Subjective: pt up in bed getting her vest fitted. - Objective Vital Signs & Weight: Vital Signs (12 hours) Temp Pulse Resp BP Pulse Ox 11/01/19 13:51 77 16 99 11/01/19 12:42 98.1 F 66 16 114/51 L 98 11/01/19 07:30 98.1 F 90 14 136/75 97 11/01/19 06:35 76 18 94 L Weight Admit Weight 239 lb 12.8 oz Weight 246 lb 11.2 oz Most Recent Monitor Data Heart Rate from ECG 102 NIBP 112/76 NIBP BP-Mean 88 Respiration from ECG 24 SpO2 99 I&O: 10/31/19 11/01/19 11/02/19 06:59 06:59 06:59 Intake Total 1100 2230 Output Total 3444 1350 Balance -2344 880 Result Diagrams: 11/01/19 03:55 11/01/19 03:55 Hospitalist ROS - Review of Systems Cardiovascular: denies: chest pain, palpitations, orthopnea, paroxysmal noc. dyspnea, edema, light headedness, other Gastrointestinal: denies: nausea, vomiting, abdominal pain, diarrhea, constipation, melena, hematochezia, other Genitourinary: denies: dysuria, frequency, incontinence, hematuria, retention, other - Medication Medications: Active Medications Generic Name Dose Route Start Last Admin Trade Name Freq PRN Reason Stop Dose Admin Acetaminophen 650 mg 10/14/19 02:56 10/27/19 04:03 Tylenol PO 650 mg Q4H PRN Administration Headache/Fever or Pain Albuterol/Ipratropium 3 ml 10/13/19 07:00 11/01/19 13:51 Duoneb NEB 3 ml Q2NS-WB LISA Administration Alprazolam 0.25 mg 10/30/19 14:11 10/30/19 21:05 Xanax PO 0.25 mg QIDPRN PRN Administration Anxiety Atorvastatin Calcium 40 mg 10/13/19 21:00 10/31/19 21:02 Lipitor PO 40 mg HS LISA Administration Benzonatate 100 mg 10/31/19 15:00 11/01/19 14:51 Tessalon PO 100 mg Q6H LISA Administration Bisacodyl 10 mg 10/16/19 09:32 10/29/19 08:03 Dulcolax PO 10 mg DAILYPRN PRN Administration Constipation Bisacodyl 10 mg 10/16/19 09:33 10/27/19 16:45 Dulcolax [place] 10 mg DAILYPRN PRN Administration Constipation Bismuth Subsalicylate 1 tab 10/16/19 13:36 10/16/19 14:02 Pepto Bismol PO 1 tab Q2H PRN Administration Diarrhea/Loose Stools Calcium/Vitamin D 1 tab 10/13/19 09:00 11/01/19 08:49 Caltrate 600 + Vit D PO 1 tab DAILY LISA Administration Carvedilol 3.125 mg 10/26/19 17:00 11/01/19 08:49 Coreg PO 3.125 mg BID-WM LISA Administration Docusate Sodium 100 mg 10/16/19 21:00 11/01/19 08:49 Colace PO 100 mg BID LISA Administration Enoxaparin Sodium 100 mg 10/31/19 09:00 11/01/19 08:49 Lovenox SC 100 mg 09,2099 LISA Administration Ferrous Sulfate 325 mg 10/30/19 21:00 11/01/19 08:49 Feosol PO 325 mg 899,2099 LISA Administration Fish Oil 1,000 mg 10/13/19 09:00 11/01/19 08:48 Fish Oil PO 1,000 mg DAILY LISA Administration Furosemide 40 mg 10/30/19 07:30 11/01/19 08:48 Lasix PO 40 mg DAILY-AC LISA Administration Gabapentin 100 mg 10/23/19 21:00 11/01/19 14:51 Neurontin PO 100 mg TID LISA Administration Guaifenesin/Dextromethorphan 15 ml 10/23/19 11:47 10/29/19 15:25 Robitussin Dm PO 15 ml Q4H PRN Administration Cough Hyoscyamine Sulfate 0.125 mg 10/23/19 11:47 10/23/19 15:22 Levsin Elixir PO 0.125 mg Q4H PRN Administration GI Cramping Iron/Minerals/Multivitamins 1 tab 10/13/19 09:00 11/01/19 08:49 Theragran M PO 1 tab DAILY LISA Administration Levothyroxine Sodium 150 mcg 10/13/19 06:00 11/01/19 05:21 Synthroid PO 150 mcg 0600 LISA Administration Magnesium Oxide 400 mg 10/18/19 09:00 11/01/19 08:49 Magnesium Oxide PO 400 mg BID LISA Administration Mometasone Furoate/Formoterol Fumar 2 puff 10/14/19 18:30 11/01/19 06:36 Dulera 200 Mcg/5 Mcg Inhaler INH 2 puff BID-RT LISA Administration Nystatin 0 gm 10/15/19 10:56 10/24/19 14:26 Mycostatin Powder TOP 1 applic BID PRN Administration Topical Irritations Pantoprazole Sodium 40 mg 10/13/19 09:00 11/01/19 08:49 Protonix PO 40 mg DAILY LISA Administration Polyethylene Glycol 17 gm 10/22/19 09:00 11/01/19 08:49 Miralax PO 17 gm DAILY LISA Administration Pramipexole Dihydrochloride 0.5 mg 10/13/19 21:00 10/31/19 21:04 Mirapex PO 0.5 mg HS LISA Administration Prazosin HCl 1 mg 10/13/19 21:00 10/31/19 21:02 Minipress PO 1 mg HS LISA Administration Quetiapine Fumarate 300 mg 10/13/19 21:00 10/31/19 21:04 Seroquel PO 300 mg HS LISA Administration Senna 2 tab 10/21/19 21:00 10/31/19 21:03 Senokot PO 2 tab HS LISA Administration Sertraline HCl 100 mg 10/13/19 09:00 11/01/19 08:49 Zoloft PO 100 mg DAILY LISA Administration Tramadol HCl 50 mg 10/18/19 13:09 10/23/19 04:12 Ultram PO 50 mg Q6H PRN Administration Mild Pain (1-3) Tramadol HCl 100 mg 10/18/19 13:09 10/31/19 16:43 Ultram PO 100 mg Q6H PRN Administration Moderate Pain (4-6) Trazodone HCl 50 mg 10/13/19 21:00 10/31/19 21:05 Desyrel PO 50 mg HS LISA Administration Warfarin Sodium 5 mg 10/31/19 17:00 10/31/19 16:44 Coumadin PO 5 mg 1700 LISA Administration - Exam Heart: negative: RRR, no murmur, no gallops, no rubs, normal peripheral pulses, irregular, diminshed peripheral pulses, murmur present, II/IV, III/IV Respiratory: negative: CTAB, no wheezes, no rales, no ronchi, normal chest expansion, no tachypnea, normal percussion, rales, rhonchi, tachypneic, wheezes Gastrointestinal: negative: soft, non-tender, non-distended, normal bowel sounds , no palpable masses, no hepatomegaly, no splenomegaly, no bruit, no guarding, no rigidity, tender to palpation, distended, diminished bowl sounds, voluntary guarding Extremities: 2+ LE edema Hosp A/P - Plan Hosp A/P (1) Acute on chronic systolic heart failure, NYHA class 4 Code(s): I50.23 - ACUTE ON CHRONIC SYSTOLIC (CONGESTIVE) HEART FAILURE Status : Acute (2) Atrial fibrillation Code(s): I48.91 - UNSPECIFIED ATRIAL FIBRILLATION Status: Acute Qualifiers: Atrial fibrillation type: paroxysmal Qualified Code(s): I48.0 - Paroxysmal atrial fibrillation (3) Ventricular tachycardia Code(s): I47.2 - VENTRICULAR TACHYCARDIA Status: Acute (4) Chronic anticoagulation Code(s): Z79.01 - PENITENTIARY (CURRENT) USE OF ANTICOAGULANTS Status: Chronic (5) Cardiomyopathy Code(s): I42.9 - CARDIOMYOPATHY, UNSPECIFIED Status: Chronic Qualifiers: Cardiomyopathy type: unspecified Qualified Code(s): I42.9 - Cardiomyopathy , unspecified (6) Chronic respiratory failure with hypoxia Code(s): J96.11 - CHRONIC RESPIRATORY FAILURE WITH HYPOXIA Status: Chronic (7) Elevated troponin Code(s): R79.89 - OTHER SPECIFIED ABNORMAL FINDINGS OF BLOOD CHEMISTRY Status : Acute (8) CAD (coronary artery disease) Code(s): I25.10 - ATHSCL HEART DISEASE OF [place] CORONARY ARTERY W/O ANG PCTRS Status: Chronic Qualifiers: Coronary Disease-Associated Artery/Lesion type: [place] artery [place] vs. transplanted heart: [place] heart Associated angina: without angina Qualified Code(s): I25.10 - Atherosclerotic heart disease of [place] coronary artery without angina pectoris (9) CKD (chronic kidney disease), stage III Code(s): N18.3 - CHRONIC KIDNEY DISEASE, STAGE 3 (MODERATE) Status: Chronic (10) COPD (chronic obstructive pulmonary disease) Status: Chronic Qualifiers: COPD type: chronic bronchitis (11) Dyslipidemia Code(s): E78.5 - HYPERLIPIDEMIA, UNSPECIFIED Status: Chronic (12) H/O mitral valve replacement with mechanical valve Code(s): Z95.2 - PRESENCE OF PROSTHETIC HEART VALVE Status: Chronic (13) HTN (hypertension) Code(s): I10 - ESSENTIAL (PRIMARY) HYPERTENSION Status: Chronic Qualifiers: Hypertension type: essential hypertension Qualified Code(s): I10 - Essential (primary) hypertension - Plan cont coreg, reinstitute po lasix 10/30/19 pt's inr has to be between 2.5-3.5 given that she has a mitral valve. will give her 5mg of coumadin today. PT to work with pt. dressing change per wound care for AKA of left leg. life vest at [place] 10/30 will start pt on Lovenox since her inr is low. 10/31 still has subtheraputic inr will continue lovenxo for now. pt getting her vest fitted. will hold lasix for now will reevaluate her bmp in am.
[2019-11-01] MEDS: Bisacodyl 5 MG TAB PO PRN (17:18)
[2019-11-01] MEDS: Warfarin Sodium 5 MG TAB PO SCH (17:19)
--- NOTE | 2019-11-01 17:37 | PDOC.CPN ---
- Subjective Date: 11/01/19 Time: 17:35 Interval history: Doing much better than last week. Working with PT better now. - Review of Systems General: denies: fever/chills, weight/appetite/sleep changes, night sweats, fatigue Respiratory: denies: cough, congestion, shortness of breath, exercise intolerance Cardiovascular: denies: chest pain, palpitation, edema, paroxysmal nocturnal dyspnea, orthopnea Gastrointestinal: denies: nausea, vomiting, diarrhea, constipation, abd pain, GI bleeding Musculoskeletal: denies: pain, tenderness, stiffness, swelling, arthritis/ arthralgias Neurological: denies: numbness, syncope, seizure, weakness - Objective Allergies/Adverse Reactions: Allergies Allergy/AdvReac Type Severity Reaction Status Date / Time codeine Allergy Verified 10/13/19 03:16 Sulfa (Sulfonamide Allergy Verified 10/13/19 03:16 Antibiotics) Visit Medications: Current Medications Acetaminophen (Tylenol) 650 mg VT Q4H PRN PRN Reason: Headache/Fever or Pain Acetaminophen (Tylenol) 650 mg PO Q4H PRN PRN Reason: Headache/Fever or Pain Last Admin: 10/27/19 04:03 Dose: 650 mg Albuterol/Ipratropium (Duoneb) 3 ml NEB [id number] LISA Last Admin: 11/01/19 13:51 Dose: 3 ml Albuterol/Ipratropium (Duoneb) 3 ml EZPAP Q2H PRN PRN Reason: SOB &/or Wheezing Alprazolam (Xanax) 0.25 mg PO QIDPRN PRN PRN Reason: Anxiety Last Admin: 10/30/19 21:05 Dose: 0.25 mg Atorvastatin Calcium (Lipitor) 40 mg PO HS LISA Last Admin: 10/31/19 21:02 Dose: 40 mg Benzonatate (Tessalon) 100 mg PO Q6H LISA Last Admin: 11/01/19 14:51 Dose: 100 mg Bisacodyl (Dulcolax) 10 mg PO DAILYPRN PRN PRN Reason: Constipation Last Admin: 11/01/19 17:18 Dose: 10 mg Bisacodyl (Dulcolax) 10 mg VT DAILYPRN PRN PRN Reason: Constipation Last Admin: 10/27/19 16:45 Dose: 10 mg Bismuth Subsalicylate (Pepto Bismol) 1 tab PO Q2H PRN PRN Reason: Diarrhea/Loose Stools Last Admin: 10/16/19 14:02 Dose: 1 tab Calcium/Vitamin D (Caltrate 600 + Vit D) 1 tab PO DAILY [facility] Last Admin: 11/01/19 08:49 Dose: 1 tab Carvedilol (Coreg) 3.125 mg PO BID-WM [facility] Last Admin: 11/01/19 17:18 Dose: 3.125 mg Docusate Sodium (Colace) 100 mg PO BID [facility] Last Admin: 11/01/19 08:49 Dose: 100 mg Enoxaparin Sodium (Lovenox) 100 mg SC 899,2099 [facility] Last Admin: 11/01/19 08:49 Dose: 100 mg Ferrous Sulfate (Feosol) 325 mg PO 899,2099 [facility] Last Admin: 11/01/19 08:49 Dose: 325 mg Fish Oil (Fish Oil) 1,000 mg PO DAILY [facility] Last Admin: 11/01/19 08:48 Dose: 1,000 mg Furosemide (Lasix) 40 mg PO DAILY-AC [facility] Last Admin: 11/01/19 08:48 Dose: 40 mg Gabapentin (Neurontin) 100 mg PO TID [facility] Last Admin: 11/01/19 14:51 Dose: 100 mg Guaifenesin/Dextromethorphan (Robitussin Dm) 15 ml PO Q4H PRN PRN Reason: Cough Last Admin: 10/29/19 15:25 Dose: 15 ml Hyoscyamine Sulfate (Levsin Elixir) 0.125 mg PO Q4H PRN PRN Reason: GI Cramping Last Admin: 10/23/19 15:22 Dose: 0.125 mg Iron/Minerals/Multivitamins (Theragran M) 1 tab PO DAILY [facility] Last Admin: 11/01/19 08:49 Dose: 1 tab Levothyroxine Sodium (Synthroid) 150 mcg PO 0600 [facility] Last Admin: 11/01/19 05:21 Dose: 150 mcg Magnesium Oxide (Magnesium Oxide) 400 mg PO BID [facility] Last Admin: 11/01/19 08:49 Dose: 400 mg Miscellaneous Medication (Pharmacy To Dose) 1 each PO PRN PRN PRN Reason: Pharmacy to dose Miscellaneous Medication (Pharmacy To Dose) 1 each IVPB PRN PRN PRN Reason: Pharmacy to dose Mometasone Furoate/Formoterol Fumar (Dulera 200 Mcg/5 Mcg Inhaler) 2 puff INH BID-RT [facility] Last Admin: 11/01/19 06:36 Dose: 2 puff Nitroglycerin (Nitrostat) 0.4 mg SL Q30M PRN PRN Reason: .CHEST PAIN Nystatin (Mycostatin Powder) 0 gm TOP BID PRN PRN Reason: Topical Irritations Last Admin: 10/24/19 14:26 Dose: 1 applic Pantoprazole Sodium (Protonix) 40 mg PO DAILY [facility] Last Admin: 11/01/19 08:49 Dose: 40 mg Polyethylene Glycol (Miralax) 17 gm PO DAILY [facility] Last Admin: 11/01/19 08:49 Dose: 17 gm Pramipexole Dihydrochloride (Mirapex) 0.5 mg PO [facility] Last Admin: 10/31/19 21:04 Dose: 0.5 mg Prazosin HCl (Minipress) 1 mg PO [facility] Last Admin: 10/31/19 21:02 Dose: 1 mg Quetiapine Fumarate (Seroquel) 300 mg PO [facility] Last Admin: 10/31/19 21:04 Dose: 300 mg Senna (Senokot) 2 tab PO [facility] Last Admin: 10/31/19 21:03 Dose: 2 tab Sertraline HCl (Zoloft) 100 mg PO DAILY [facility] Last Admin: 11/01/19 08:49 Dose: 100 mg Sterile Water (Bacteriostatic Water) 1 ml FS PRN PRN PRN Reason: RECONSTITUTION Tramadol HCl (Ultram) 50 mg PO Q6H PRN PRN Reason: Mild Pain (1-3) Last Admin: 10/23/19 04:12 Dose: 50 mg Tramadol HCl (Ultram) 100 mg PO Q6H PRN PRN Reason: Moderate Pain (4-6) Last Admin: 10/31/19 16:43 Dose: 100 mg Trazodone HCl (Desyrel) 50 mg PO [facility] Last Admin: 10/31/19 21:05 Dose: 50 mg Warfarin Sodium (Coumadin) 5 mg PO 1700 [facility] Last Admin: 11/01/19 17:19 Dose: 5 mg Vital Signs & Weight: Vital Signs Temp Pulse Pulse Resp BP BP Pulse Ox 11/01/19 16:21 97.9 F 77 14 136/60 96 11/01/19 14:00 71 120/88 11/01/19 13:51 77 16 99 11/01/19 12:42 98.1 F 66 16 114/51 L 98 11/01/19 07:30 98.1 F 90 14 136/75 97 11/01/19 06:35 76 18 94 L Pulse Ox 11/01/19 16:21 11/01/19 14:00 98 11/01/19 13:51 11/01/19 12:42 11/01/19 07:30 11/01/19 06:35 Admit Weight 239 lb 12.8 oz Weight 246 lb 11.2 oz - Physical Exam General: alert & oriented x3 HEENT: mucus membranes moist Neck: supple neck Cardiac: regular rate and rhythm Lungs: normal breath sounds Neuro: grossly intact Abdomen: active bowel sounds Extremities: no edema Skin: clear Musculoskeletal: no pain - Labs Result Diagrams: 11/01/19 03:55 11/01/19 03:55 - Telemetry Sinus rhythms and dysrhythmias: sinus rhythm - Assessment/Plan Assessment/Plan: 1. Dilated CM 2. S/P Mechanical mitral valve 3. CAD s/p multiple stents done with Dr. Ph[facility] at [facility] 4. Hodgkins Lymphoma in remission 5. Persistent afib 6. LV function at 20-25% 7. PVD s/p left leg BKA. 8. Chronic anticoagulation on coumadin 9. Subtherapeutic INR. PLAN: - Continue coumadin for both stroke prophylaxis from afib and mechanical valve. - Agree with covering with lovenox while INR increases. - INR/coumadin dose per pharmacy. - Renal function improved. - Lifevest in place. - Awaiting placement.
[2019-11-01] MEDS: Guaifenesin DM 100-10/5 ML UDCUP PO PRN (21:13)
[2019-11-01] MEDS: Pramipexole Di-HCl 0.25 MG TAB PO SCH (21:14)
[2019-11-01] MEDS: Prazosin HCl 1 MG CAP PO SCH (21:15)
[2019-11-01] MEDS: traZODone HCl 50 MG TAB PO SCH (21:16)
[2019-11-01] MEDS: Atorvastatin Calcium 40 MG TAB PO SCH (21:16)
[2019-11-01] MEDS: Senokot 8.6 MG TAB PO SCH (21:27)
[2019-11-02] MEDS: Benzonatate 100 MG CAP PO SCH ×3 (04:13→15:29)
[2019-11-02 05:00] LABS: INR-International Normal Ratio 1.8; Prothrombin Time 20.5 sec (12.0-14.7)
[2019-11-02] MEDS: Levothyroxine 150 MCG TAB PO SCH (06:08)
[2019-11-02] MEDS: Mometasone 200 MCG/Formoterol 5 MCG 120 PUFF INHALER INH SCH ×2 (07:10→18:47)
[2019-11-02] MEDS: Fish Oil 1,000 MG CAP PO SCH (09:20)
[2019-11-02] MEDS: Magnesium Oxide 400 MG TAB PO SCH (09:20)
[2019-11-02] MEDS: Enoxaparin Sodium 100 MG/ML SYRINGE SC SCH (09:20)
[2019-11-02] MEDS: Calcium Carbonate 600 MG + Vit D TAB PO SCH (09:20)
[2019-11-02] MEDS: Polyethylene Glycol 3350 17 GM Packet PO SCH (09:21)
[2019-11-02] MEDS: Carvedilol 3.125 MG TAB PO SCH ×2 (09:21→17:44)
[2019-11-02] MEDS: Docusate 100 MG CAP PO SCH (09:21)
[2019-11-02] MEDS: Multivitamin W/ Minerals 1 TAB PO SCH (09:21)
[2019-11-02] MEDS: Ferrous Sulfate 325 MG TAB PO SCH (09:21)
[2019-11-02] MEDS: Gabapentin 100 MG CAP PO SCH ×2 (09:21→15:29)
[2019-11-02 10:14] LABS: Anion Gap 12 mmol/L (10-20); BUN (Urea Nitrogen) 29 mg/dL (9.8-20.1); Calc. Creatinine Clearance 64 mL/min (70-130); Calcium 8.7 mg/dL (7.8-10.44); Carbon Dioxide 33 mmol/L (23-31); Chloride 94 mmol/L (98-107); Estimated GFR-MDRD 41; Glucose 92 mg/dL (83-110); Potassium 4.3 mmol/L (3.5-5.1); Sodium 135 mmol/L (136-145)
[2019-11-02] MEDS: traMADol HCl 50 MG TAB PO PRN (10:33)
[2019-11-02 15:33] VITALS: BP 108/62; TEMP 98
--- NOTE | 2019-11-02 15:39 | EKG ---
Test Reason : Blood Pressure : / mmHG Vent. Rate : 097 BPM Atrial Rate : 113 BPM P-R Int : 000 ms QRS Dur : 080 ms QT Int : 342 ms P-R-T Axes : 000 226 081 degrees QTc Int : 434 ms Suspect arm lead reversal, interpretation assumes no reversal Atrial fibrillation with premature ventricular or aberrantly conducted complexes Lateral infarct , age undetermined Abnormal ECG Confirmed by TASNEEM ALMEIDA, CLIF Santamaria ([id number]), graphics editor FAVIAN CARRILLO ([id number]) on 11/02/2019 3:39:31 PM Referred By: Confirmed By:CLIF BOATENG MD
[2019-11-02] MEDS ORDERED: Warfarin Sodium 10 MG TAB PO SCH (17:00)
--- NOTE | 2019-11-02 17:10 | PDOC.CPN ---
- Subjective Date: 11/02/19 Time: 17:07 Interval history: No new issues. Her renal function continues to improve. She is ready for rehab once room available. - Review of Systems General: denies: fever/chills, weight/appetite/sleep changes, night sweats, fatigue Respiratory: denies: cough, congestion, shortness of breath, exercise intolerance Cardiovascular: denies: chest pain, palpitation, edema, paroxysmal nocturnal dyspnea, orthopnea Gastrointestinal: denies: nausea, vomiting, diarrhea, constipation, abd pain, GI bleeding Musculoskeletal: denies: pain, tenderness, stiffness, swelling, arthritis/ arthralgias Neurological: denies: numbness, syncope, seizure, weakness - Objective Allergies/Adverse Reactions: Allergies Allergy/AdvReac Type Severity Reaction Status Date / Time codeine Allergy Verified 10/13/19 03:16 Sulfa (Sulfonamide Allergy Verified 10/13/19 03:16 Antibiotics) Visit Medications: Current Medications Acetaminophen (Tylenol) 650 mg SD Q4H PRN PRN Reason: Headache/Fever or Pain Acetaminophen (Tylenol) 650 mg PO Q4H PRN PRN Reason: Headache/Fever or Pain Last Admin: 10/27/19 04:03 Dose: 650 mg Albuterol/Ipratropium (Duoneb) 3 ml NEB [id number] LISA Last Admin: 11/02/19 12:54 Dose: 3 ml Albuterol/Ipratropium (Duoneb) 3 ml EZPAP Q2H PRN PRN Reason: SOB &/or Wheezing Alprazolam (Xanax) 0.25 mg PO QIDPRN PRN PRN Reason: Anxiety Last Admin: 10/30/19 21:05 Dose: 0.25 mg Atorvastatin Calcium (Lipitor) 40 mg PO HS LISA Last Admin: 11/01/19 21:16 Dose: 40 mg Benzonatate (Tessalon) 100 mg PO Q6H LISA Last Admin: 11/02/19 15:29 Dose: 100 mg Bisacodyl (Dulcolax) 10 mg PO DAILYPRN PRN PRN Reason: Constipation Last Admin: 11/01/19 17:18 Dose: 10 mg Bisacodyl (Dulcolax) 10 mg SD DAILYPRN PRN PRN Reason: Constipation Last Admin: 10/27/19 16:45 Dose: 10 mg Bismuth Subsalicylate (Pepto Bismol) 1 tab PO Q2H PRN PRN Reason: Diarrhea/Loose Stools Last Admin: 10/16/19 14:02 Dose: 1 tab Calcium/Vitamin D (Caltrate 600 + Vit D) 1 tab PO DAILY [facility] Last Admin: 11/02/19 09:20 Dose: 1 tab Carvedilol (Coreg) 3.125 mg PO BID-WM [facility] Last Admin: 11/02/19 09:21 Dose: 3.125 mg Docusate Sodium (Colace) 100 mg PO BID [facility] Last Admin: 11/02/19 09:21 Dose: 100 mg Enoxaparin Sodium (Lovenox) 100 mg SC 899,2099 [facility] Last Admin: 11/02/19 09:20 Dose: 100 mg Ferrous Sulfate (Feosol) 325 mg PO 899,2099 [facility] Last Admin: 11/02/19 09:21 Dose: 325 mg Fish Oil (Fish Oil) 1,000 mg PO DAILY [facility] Last Admin: 11/02/19 09:20 Dose: 1,000 mg Furosemide (Lasix) 40 mg PO DAILY-[facility] Last Admin: 11/01/19 08:48 Dose: 40 mg Gabapentin (Neurontin) 100 mg PO TID [facility] Last Admin: 11/02/19 15:29 Dose: 100 mg Guaifenesin/Dextromethorphan (Robitussin Dm) 15 ml PO Q4H PRN PRN Reason: Cough Last Admin: 11/01/19 21:13 Dose: 15 ml Hyoscyamine Sulfate (Levsin Elixir) 0.125 mg PO Q4H PRN PRN Reason: GI Cramping Last Admin: 10/23/19 15:22 Dose: 0.125 mg Iron/Minerals/Multivitamins (Theragran M) 1 tab PO DAILY [facility] Last Admin: 11/02/19 09:21 Dose: 1 tab Levothyroxine Sodium (Synthroid) 150 mcg PO 0600 [facility] Last Admin: 11/02/19 06:08 Dose: 150 mcg Magnesium Oxide (Magnesium Oxide) 400 mg PO BID [facility] Last Admin: 11/02/19 09:20 Dose: 400 mg Miscellaneous Medication (Pharmacy To Dose) 1 each PO PRN PRN PRN Reason: Pharmacy to dose Miscellaneous Medication (Pharmacy To Dose) 1 each IVPB PRN PRN PRN Reason: Pharmacy to dose Mometasone Furoate/Formoterol Fumar (Dulera 200 Mcg/5 Mcg Inhaler) 2 puff INH BID-RT [facility] Last Admin: 11/02/19 07:10 Dose: 2 puff Nitroglycerin (Nitrostat) 0.4 mg SL Q30M PRN PRN Reason: .CHEST PAIN Nystatin (Mycostatin Powder) 0 gm TOP BID PRN PRN Reason: Topical Irritations Last Admin: 10/24/19 14:26 Dose: 1 applic Pantoprazole Sodium (Protonix) 40 mg PO DAILY [facility] Last Admin: 11/02/19 09:21 Dose: 40 mg Polyethylene Glycol (Miralax) 17 gm PO DAILY [facility] Last Admin: 11/02/19 09:21 Dose: 17 gm Pramipexole Dihydrochloride (Mirapex) 0.5 mg PO [facility] Last Admin: 11/01/19 21:14 Dose: 0.5 mg Prazosin HCl (Minipress) 1 mg PO [facility] Last Admin: 11/01/19 21:15 Dose: 1 mg Quetiapine Fumarate (Seroquel) 300 mg PO [facility] Last Admin: 11/01/19 21:14 Dose: 300 mg Senna (Senokot) 2 tab PO [facility] Last Admin: 11/01/19 21:27 Dose: Not Given Sertraline HCl (Zoloft) 100 mg PO DAILY [facility] Last Admin: 11/02/19 09:20 Dose: 100 mg Sterile Water (Bacteriostatic Water) 1 ml FS PRN PRN PRN Reason: RECONSTITUTION Tramadol HCl (Ultram) 50 mg PO Q6H PRN PRN Reason: Mild Pain (1-3) Last Admin: 10/23/19 04:12 Dose: 50 mg Tramadol HCl (Ultram) 100 mg PO Q6H PRN PRN Reason: Moderate Pain (4-6) Last Admin: 11/02/19 10:33 Dose: 100 mg Trazodone HCl (Desyrel) 50 mg PO [facility] Last Admin: 11/01/19 21:16 Dose: 50 mg Warfarin Sodium (Coumadin) 10 mg PO 1700 [facility] Vital Signs & Weight: Vital Signs Temp Pulse Pulse Pulse Resp BP BP 11/02/19 15:32 98 F 70 16 11/02/19 14:32 79 64 118/58 L 110/62 11/02/19 12:54 73 16 11/02/19 12:05 98.1 F 73 16 11/02/19 10:58 79 83 118/58 L 126/64 11/02/19 07:35 97.3 F L 76 17 11/02/19 07:33 11/02/19 07:10 63 16 BP Pulse Ox 11/02/19 15:32 108/62 95 11/02/19 14:32 11/02/19 12:54 11/02/19 12:05 126/64 11/02/19 10:58 11/02/19 07:35 114/56 L 99 11/02/19 07:33 99 11/02/19 07:10 Admit Weight 239 lb 12.8 oz Weight 247 lb 11.2 oz - Physical Exam General: alert & oriented x3 HEENT: mucus membranes moist Neck: supple neck Cardiac: irregularly regular Lungs: no rales, wheezes Neuro: grossly intact Abdomen: active bowel sounds Extremities: 1+ LE edema Skin: clear Musculoskeletal: no pain - Labs Result Diagrams: 11/01/19 03:55 11/02/19 09:41 - Telemetry Supraventricular conduction: atrial fibrillation - Assessment/Plan Assessment/Plan: 1. Dilated CM 2. S/P Mechanical mitral valve 3. CAD s/p multiple stents done with Dr. Pham at [facility] 4. Hodgkins Lymphoma in remission 5. Persistent afib 6. LV function at 20-25% 7. PVD s/p left leg BKA. 8. Chronic anticoagulation on coumadin 9. Subtherapeutic INR. PLAN: - Continue coumadin for both stroke prophylaxis from afib and mechanical valve. - Agree with covering with lovenox while INR increases. Currently at 1.8 - INR/coumadin dose per pharmacy. - Renal function improved. - Lifevest in place. - Awaiting placement. - Follow up in the office in 2-4 weeks.
[2019-11-02] MEDS ORDERED: Enoxaparin Sodium 100 MG/ML SYRINGE SC SCH (17:45)
[2019-11-03] MEDS ORDERED: Enoxaparin Sodium 100 MG/ML SYRINGE SC SCH (09:00)
== END 2019-11-02 19:58 | DRG 239 ==
LOC: ERS 21:05 → 2SE 10-13 00:44 → CCU 10-13 15:23 → 2NO 10-16 20:25
PROVIDERS: ADMIT Internal Medicine; ATTEND Internal Medicine
PROC: 06CN0ZZ Extirpation of Matter from Left Femoral Vein, Open Approach (ICD-10-PCS; 2019-10-13)
PROC: 0Y6D0Z1 Detachment at Left Upper Leg, High, Open Approach (ICD-10-PCS; principal; 2019-10-18)
PROC: 30233L1 Transfusion of Nonautologous Fresh Plasma into Peripheral Vein, Percutaneous Approach (ICD-10-PCS; 2019-10-18)
PROC: 30233K1 Transfusion of Nonautologous Frozen Plasma into Peripheral Vein, Percutaneous Approach (ICD-10-PCS; 2019-10-18)
PROC: 30233N1 Transfusion of Nonautologous Red Blood Cells into Peripheral Vein, Percutaneous Approach (ICD-10-PCS; 2019-10-21)
DX: I70.262 Atherosclerosis of native arteries of extremities with gangrene, left leg (principal); I50.23 Acute on chronic systolic (congestive) heart failure; I82.412 Acute embolism and thrombosis of left femoral vein; C78.89 Secondary malignant neoplasm of other digestive organs; J44.1 Chronic obstructive pulmonary disease with (acute) exacerbation; N39.0 Urinary tract infection, site not specified; Z68.41 Body mass index [BMI] 40.0-44.9, adult; I13.0 Hypertensive heart and chronic kidney disease with heart failure and stage 1 through stage 4 chronic kidney disease, or unspecified chronic kidney disease; J96.11 Chronic respiratory failure with hypoxia; N17.9 Acute kidney failure, unspecified; E87.1 Hypo-osmolality and hyponatremia; I74.5 Embolism and thrombosis of iliac artery; I82.432 Acute embolism and thrombosis of left popliteal vein; D62 Acute posthemorrhagic anemia; I47.2 Ventricular tachycardia; I42.0 Dilated cardiomyopathy; I48.19 Other persistent atrial fibrillation; I96 Gangrene, not elsewhere classified; Z20.828 Contact with and (suspected) exposure to other viral communicable diseases; E87.6 Hypokalemia; Z51.5 Encounter for palliative care; M19.90 Unspecified osteoarthritis, unspecified site; E78.00 Pure hypercholesterolemia, unspecified; F32.9 Major depressive disorder, single episode, unspecified; N18.3 Chronic kidney disease, stage 3 (moderate); I25.10 Atherosclerotic heart disease of native coronary artery without angina pectoris; E78.5 Hyperlipidemia, unspecified; E66.01 Morbid (severe) obesity due to excess calories; F41.9 Anxiety disorder, unspecified; B96.89 Other specified bacterial agents as the cause of diseases classified elsewhere; I48.0 Paroxysmal atrial fibrillation; K59.03 Drug induced constipation; T40.605A Adverse effect of unspecified narcotics, initial encounter; Z90.49 Acquired absence of other specified parts of digestive tract; Z90.710 Acquired absence of both cervix and uterus; Z87.891 Personal history of nicotine dependence; Z88.2 Allergy status to sulfonamides; Z88.5 Allergy status to narcotic agent; Z79.82 Long term (current) use of aspirin; Z79.899 Other long term (current) drug therapy; Z79.02 Long term (current) use of antithrombotics/antiplatelets; Z99.81 Dependence on supplemental oxygen; Z79.01 Long term (current) use of anticoagulants; Z95.2 Presence of prosthetic heart valve; Z85.528 Personal history of other malignant neoplasm of kidney; Z85.72 Personal history of non-Hodgkin lymphomas
CPT/HCPCS: 36415; 36416; 36430; 36600; 71045; 72170; 74174; 76000; 76770; 80048; 80053; 81001; 82550; 82805; 83735; 83880; 85014; 85018; 85025; 85049; 85520; 85610; 85730; 86850; 86900; 86901; 87077; 87086; 87186; 87635; 88307; 88311; 93005; 93306; 93970; 94640; 94664; 94760; 96365; 96366; 96375; 96376; J0171; J0690; J0696; J1100; J1250; J1644; J1650; J1885; J1940; J2270; J2405; J2704; J2720; J2920; J3010; J3475; J3480; J3490; J7050; J7620; P9016; P9059; Q9967; S0020; U0003

== ENCOUNTER 2020-03-04 21:45 | Emergency (ER) | payer MEDICARE ==
[2020-03-04 23:21] LABS: Bacteria/HPF 3+ HPF (None Seen); Bilirubin Negative (Negative); Blood, Urine 3+ (Negative); Clarity Turbid (Clear); Glucose, Urine (Dipstick) Normal (Negative); Ketone, Urine Negative (Negative); Leukocyte 500 Leu/uL (Negative); Nitrite 1+ (Negative); Protein, Urine (Dipstick) Negative (Neg-Trace); RBC/HPF 0-3 HPF (0-3); Renal Epithelial 0-3 HPF (None Seen); Specific Gravity, Urine 1.008 (1.002-1.036); Squamous Epithelial 0-3 HPF (0-3); Urobilinogen Normal mg/dL (Less than 2); WBC/HPF Greater than 50 HPF (0-3); pH, Urine 6.5 (5.0-9.0)
== END 2020-03-05 00:18 ==
LOC: ERS 21:45
DX: T83.038A Leakage of other urinary catheter, initial encounter (principal); N39.0 Urinary tract infection, site not specified; Z79.82 Long term (current) use of aspirin; Z79.899 Other long term (current) drug therapy; Z79.01 Long term (current) use of anticoagulants; M19.90 Unspecified osteoarthritis, unspecified site; J44.9 Chronic obstructive pulmonary disease, unspecified; E78.00 Pure hypercholesterolemia, unspecified; I48.91 Unspecified atrial fibrillation; Z87.891 Personal history of nicotine dependence
CPT/HCPCS: 51702; 81003; 81015; 87077; 87086; 87186

== ENCOUNTER 2020-04-05 11:53 | Inpatient (IN) | payer MEDICARE ==
[2020-04-05 12:28] LABS: #Basophils 0.1 thou/uL (0.0-0.2); #Eosinphils 0.1 thou/uL (0.0-0.7); #Lymphocytes 1.1 thou/uL (1.20-3.40); #Monocytes 0.6 thou/uL (0.11-0.59); #Neutrophils 13.9 thou/uL (1.40-6.50); %Basophils 0.8 % (0.0-1.0); %Eosinophils 0.4 % (0.0-10.0); %Lymphocytes 6.7 % (21.0-51.0); %Monocytes 3.6 % (0.0-10.0); %Neutrophils 88.5 % (42.0-75.0); Hemoglobin 14.4 g/dL (12.0-16.0); Mean Corpuscular HGB CONC 34.8 g/dL (32.0-36.0); Mean Corpuscular Volume 89.2 fL (78.0-98.0); Mean Platelet Volume 8.9 fL (7.4-10.4); Platelet Count 206 thou/uL (130-400); RBC Distribution Width 17.7 % (11.5-14.5); Red Blood Cell (RBC) Count 4.64 mill/uL (4.20-5.40); White Blood Cell (WBC) Count 15.7 thou/uL (4.8-10.8)
[2020-04-05 12:42] LABS: PTT 66.8 sec (22.9-36.1); Prothrombin Time 57.5 sec (12.0-14.7)
[2020-04-05 12:45] LABS: INR-International Normal Ratio 6.4
[2020-04-05 12:50] LABS: ALT (SGPT) 21 U/L (8-55); AST (SGOT) 23 U/L (5-34); Albumin 3.8 g/dL (3.4-4.8); Alkaline Phosphatase 95 U/L (40-110); Anion Gap 17 mmol/L (10-20); BUN (Urea Nitrogen) 78 mg/dL (9.8-20.1); Bilirubin, Total 0.7 mg/dL (0.2-1.2); Calc. Creatinine Clearance 0 mL/min (70-130); Carbon Dioxide 31 mmol/L (23-31); Chloride 81 mmol/L (98-107); Globulin 3.1 g/dL (2.4-3.5); Glucose 173 mg/dL (83-110); Potassium 3.7 mmol/L (3.5-5.1); Protein, Total 6.9 g/dL (5.8-8.1); Sodium 125 mmol/L (136-145)
[2020-04-05 14:03] LABS: Bilirubin Negative (Negative); Blood, Urine 1+ (Negative); Clarity Clear (Clear); Glucose, Urine (Dipstick) Normal (Negative); Ketone, Urine Negative (Negative); Leukocyte 500 Leu/uL (Negative); Nitrite Negative (Negative); Protein, Urine (Dipstick) 30 mg/dL (Neg-Trace); Squamous Epithelial None Seen HPF (0-3); Urobilinogen Normal mg/dL (Less than 2); WBC/HPF 21-50 HPF (0-3); pH, Urine 6.5 (5.0-9.0)
[2020-04-05 14:10] LABS: Bacteria/HPF 1+ HPF (None Seen)
[2020-04-05] MEDS ORDERED: cefTRIAXone\\ROCEPHIN 2 GM VIAL ONE (15:02)
[2020-04-05] MEDS ORDERED: Ondansetron PF 4 MG/2 ML Vial IVP PRN (18:00)
[2020-04-05] MEDS ORDERED: Ondansetron ODT 4 MG TAB SL PRN (18:00)
[2020-04-05] MEDS ORDERED: Acetaminophen 325 MG TAB PO PRN (18:00)
[2020-04-05] MEDS ORDERED: Ondansetron ODT 4 MG TAB PO PRN (18:09)
[2020-04-05] MEDS ORDERED: Senokot S 8.6-50 MG TAB PO PRN (18:09)
[2020-04-05] MEDS ORDERED: BUDESONIDE INH PRN (18:12)
[2020-04-05] MEDS ORDERED: FORMOTEROL FUMARATE INH PRN (18:12)
[2020-04-05] MEDS: Atorvastatin Calcium 40 MG TAB PO SCH (20:27)
--- NOTE | 2020-04-05 20:32 | HP ---
PRIMARY MAINTENANCE SHOP MANAGER: Dr. Guillermo Pearson. PRIMARY CARE PHYSICIAN: Dr. Jones. REASON FOR ADMISSION: UTI with outpatient treatment failure. HISTORY OF PRESENT ILLNESS: This 79-year-old female who presents to the emergency room today with complaints of burning micturition associated with leaking urine around her chronic Garcia catheter. According to the patient in the recent past, she has been having symptoms of burning micturition, associated with generalized weakness and chills and thought she was infected with UTI, so presented to her primary care physician who prescribed the patient courses of antibiotics and antifungals. Unfortunately, her symptomatology did not resolve, so was advised by PCP to present to the emergency room. The patient was initially evaluated in the ER and a diagnosis of UTI complicated with indwelling Garcia catheter was made along with initial urine culture sensitivity evaluation and antibiotic infusion. Incidentally, it was noted that the patient's INR was 6.4, which likely could have been because of recent use of antibiotics and other medications. The patient does have an extensive history of comorbidities which include hyperlipidemia, high blood pressure, history of mitral valve placement in 2002, which is mechanical in nature for which the patient currently takes oral Coumadin with history of COPD and other comorbidities including renal cancer with splenic metastasis. No other complaints of chest pain, shortness of breath, abdominal pain, fever, rigors, chills, nausea, vomiting, diaphoresis, blurring of vision, tingling, numbness, burning micturition, constipation, claudication, anxiety, depression, hematuria, hematochezia, cough, expectoration, syncope, seizures, PND, or orthopnea has been noted at this point of time. PAST MEDICAL HISTORY: Includes 1. COPD. 2. Bronchial asthma. 3. Chronic atrial fibrillation. 4. Benign essential hypertension. 5. Hyperlipidemia. 6. History of mechanical mitral valve placement. 7. 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 8. Lymphoma. 9. Osteoarthritis. 10. Generalized weakness, recurrent in nature. PAST SURGICAL HISTORY: Includes hernia repair, hysterectomy, appendectomy, nephrectomy, and mechanical mitral valve placement. SOCIAL HISTORY: Patient quit smoking in the recent past. ALLERGIES: TO CODEINE. FAMILY HISTORY: No history of premature coronary artery disease. Strong family history of hypertension and hyperlipidemia. MEDICATIONS: Per medication reconciliation form. It has been reviewed and reconciled. REVIEW OF SYSTEMS: Except as documented, all systems reviewed and negative. PHYSICAL EXAMINATION: GENERAL: This is an 79-year-old female, lying in her hospital bed, not in acute distress, complaining of burning micturition. Alert, oriented. VITAL SIGNS: Has a temperature of 97.9 degrees Fahrenheit, heart rate of 74 per minute, respiratory rate of 17 per minute, saturation 94% on room air, has a blood pressure of 108/69 mmHg. Has an airway which is clear. HEENT: Atraumatic, normocephalic. NECK: Supple. No bruit. No lymphadenopathy. No JVD. CVS: S1, S2. No abnormal rhythms or murmurs noted at this point of time. CHEST: Bilateral air entry present. No rhonchi. No wheeze. ABDOMEN: Soft, nontender. Bowel sounds are present. No organomegaly. EXTREMITIES: No cyanosis. Left above knee amputation noted. HEME: No ecchymosis or petechiae. PSYCH: No depression or anxiety. SKIN: Intact, but dry. NEUROLOGIC: Patient is alert, oriented. No acute motor or sensory deficits noted. DIAGNOSTICS: WBC is 15.7, hemoglobin 14.4, hematocrit 41.4, platelets are 206. INR is 6.4, PT is 57.5, PTT 66.8. Sodium 125, potassium 3.7, chloride 81, carbon dioxide is 31, BUN 78, creatinine 2.10. AST 23, ALT 21. Urinalysis has been reviewed, shows 1+ bacteria, WBCs 21 to 50. Urine culture sensitivity evaluations have been sent along with blood cultures. ASSESSMENT: An 79-year-old female, lying in her hospital bed, not in acute distress. 1. Complicated urinary tract infection with recent recurrent infections and outpatient treatment failure. Two sets of blood cultures and urine culture sensitivities have been ordered. We will start the patient on IV Rocephin. 2. History of mechanical mitral valve placement in 2002. Patient currently on oral Coumadin with a supratherapeutic INR at 6.4. We will closely monitor INR daily to keep it between 3 to 4. 3. Chronic atrial fibrillation. Patient on oral Coumadin. 4. History of left limb ischemia, status post above-knee amputation. 5. Benign essential hypertension. 6. Hyperlipidemia. 7. Obesity with significant physical debility. 8. History of renal cell cancer with splenic metastasis. 9. Osteoarthritis. 10. History of chronic obstructive pulmonary disease. PLAN: Discussed in detail about the diagnosis, treatment, and followup with the patient. Advised the patient about IV antibiotic therapy along with blood cultures and urine culture sensitivities. Advanced directive is a full code. The patient says she feels depressed. We will closely monitor but there are no suicidal ideations. We will do blood cultures, urine cultures, and subsequently start the patient on IV Rocephin for treatment plan. We will follow INR daily. Currently hold oral Coumadin. The patient is a very high-risk patient with multiple comorbidities and prognosis is guarded at this point of time. Discharge planning will depend on further hospital course. Job ID: [id number]
[2020-04-05] MEDS: ALPRAZolam 0.25 MG TAB PO PRN (20:50)
[2020-04-05] MEDS ORDERED: Famotidine 20 MG TAB PO SCH (21:00)
[2020-04-05 22:55] VITALS: BMI 37.5
[2020-04-06 06:16] LABS: #Eosinphils 0.2 thou/uL (0.0-0.7); #Lymphocytes 1.2 thou/uL (1.20-3.40); #Monocytes 1.1 thou/uL (0.11-0.59); %Basophils 0.1 % (0.0-1.0); %Eosinophils 1.5 % (0.0-10.0); %Lymphocytes 8.8 % (21.0-51.0); %Monocytes 7.8 % (0.0-10.0); %Neutrophils 81.8 % (42.0-75.0); Hemoglobin 12.9 g/dL (12.0-16.0); Mean Corpuscular HGB CONC 34.6 g/dL (32.0-36.0); Mean Corpuscular Hemoglobin 30.8 pg (27.0-31.0); Mean Corpuscular Volume 88.9 fL (78.0-98.0); Mean Platelet Volume 8.7 fL (7.4-10.4); Platelet Count 171 thou/uL (130-400); RBC Distribution Width 17.5 % (11.5-14.5); Red Blood Cell (RBC) Count 4.19 mill/uL (4.20-5.40); White Blood Cell (WBC) Count 13.5 thou/uL (4.8-10.8)
[2020-04-06 06:43] LABS: ALT (SGPT) 17 U/L (8-55); AST (SGOT) 20 U/L (5-34); Albumin 3.3 g/dL (3.4-4.8); Alkaline Phosphatase 82 U/L (40-110); Anion Gap 16 mmol/L (10-20); BUN (Urea Nitrogen) 73 mg/dL (9.8-20.1); Bilirubin, Total 0.4 mg/dL (0.2-1.2); Calc. Creatinine Clearance 44 mL/min (70-130); Calcium 8.3 mg/dL (7.8-10.44); Carbon Dioxide 29 mmol/L (23-31); Chloride 84 mmol/L (98-107); Globulin 2.6 g/dL (2.4-3.5); Glucose 94 mg/dL (83-110); Protein, Total 5.9 g/dL (5.8-8.1); Sodium 126 mmol/L (136-145)
[2020-04-06 06:46] LABS: Potassium 2.9 mmol/L (3.5-5.1)
[2020-04-06 07:29] LABS: Prothrombin Time 60.7 sec (12.0-14.7)
[2020-04-06 08:01] LABS: INR-International Normal Ratio 6.8
[2020-04-06] MEDS ORDERED: Ascorbic Acid 500 mg Chewable Tablet PO SCH (09:00)
[2020-04-06] MEDS ORDERED: Potassium Chloride 20 MEQ TAB PO SCH (09:15)
[2020-04-06] MEDS ORDERED: Phytonadione 10 MG/ML AMP PO SCH (09:15)
[2020-04-06] MEDS ORDERED: Non-Formulary Item 1 EACH (Albuterol Sulfate [Albuterol Sulfate Hfa] 8.5 GM Hfa.Aer.Ad) INH PRN (11:42)
[2020-04-06 11:53] LABS: Prothrombin Time 55.7 sec (12.0-14.7)
[2020-04-06] MEDS ORDERED: Albuterol Sulfate 1.25 MG/3 ML NEB INH PRN (12:01)
[2020-04-06 12:03] LABS: INR-International Normal Ratio 6.1
--- NOTE | 2020-04-06 13:46 | PDOC.HOSPP ---
- Subjective Encounter Date: 04/06/20 Encounter Time: 11:45 Subjective: P patient is resting in the bed comfortable. She is quite sleepy but on awakening some minimal response. Severe ecchymosis on her forearms. Admitted with complicated UTI - Objective Vital Signs & Weight: Vital Signs (12 hours) Temp Pulse Resp BP Pulse Ox 04/06/20 08:50 94 L 04/06/20 07:10 97.6 F 73 18 113/60 96 04/06/20 05:16 97.6 F 68 18 132/71 94 L Weight Weight 218 lb 9.59 oz I&O: 04/05/20 04/06/20 04/07/20 06:59 06:59 06:59 Intake Total 1310 Output Total 1200 Balance 110 Result Diagrams: 04/06/20 05:54 04/06/20 05:54 Hospitalist ROS - Medication Medications: Active Medications Generic Name Dose Route Start Last Admin Trade Name Freq PRN Reason Stop Dose Admin Alprazolam 0.25 mg 04/05/20 18:12 04/05/20 20:50 Alprazolam 0.25 Mg Tab PO 0.25 mg QIDPRN PRN Administration Anxiety Ascorbic Acid 500 mg 04/06/20 09:00 04/06/20 08:51 Ascorbic Acid 500 Mg Chewable Tablet PO 500 mg DAILY LISA Administration Atorvastatin Calcium 40 mg 04/05/20 21:00 04/05/20 20:27 Atorvastatin Calcium 40 Mg Tab PO 40 mg HS LISA Administration Quetiapine Fumarate 300 mg 04/05/20 21:00 04/05/20 20:27 Quetiapine Fumarate 300 Mg Tab PO 300 mg HS LISA Administration Hospitalist Exam Vitals: Vital Signs (12 hours) Temp Pulse Resp BP Pulse Ox 04/06/20 08:50 94 L 04/06/20 07:10 97.6 F 73 18 113/60 96 04/06/20 05:16 97.6 F 68 18 132/71 94 L Weight Weight 218 lb 9.59 oz General Appearance: ill appearing Eye: PERRL ENT: normocephalic atraumatic Neck: supple Heart: RRR, normal peripheral pulses Respiratory: CTAB, normal chest expansion Gastrointestinal: soft, normal bowel sounds Neurological: cranial nerve grossly intact, no focal deficits Psychiatric: oriented to person, oriented to place, somnolent Hosp A/P - Plan Complicated UTI with recurrent infections Outpatient p.o. antibiotic treatment failure --Urine culture growing gram-negative rods sensitivity pending -Started on ceftriaxone Supratherapeutic INR Mechanical mitral valve replacement in 2002 and on Coumadin Chronic atrial fibrillation -Repeat INR of 6.1 -Patient without any sign of bleeding however she does have a chronic ecchymosis that does not appear to be a new or fresh. -Target between 3-4 INR Leukocytosis that is trending down. History of renal cell cancer /splenic metastasis COPD stable currently - follow-up on the urine and blood cultures -Follow-up on INR -Holding Coumadin until INR becomes 4 and then will start her back on the Coumadin. Physical therapy consult placed.
[2020-04-06] MEDS: Benzonatate 100 MG CAP PO SCH ×2 (14:43→20:30)
[2020-04-06] MEDS: ALPRAZolam 0.25 MG TAB PO PRN ×2 (14:43→22:45)
[2020-04-06] MEDS: cefTRIAXone\\ROCEPHIN 1 GM in Sodium Chloride 0.9% 100 ML IVPB SCH (14:44)
[2020-04-06 15:24] LABS: Anion Gap 17 mmol/L (10-20); BUN (Urea Nitrogen) 68 mg/dL (9.8-20.1); Calc. Creatinine Clearance 40 mL/min (70-130); Calcium 8.1 mg/dL (7.8-10.44); Carbon Dioxide 25 mmol/L (23-31); Chloride 85 mmol/L (98-107); Glucose 128 mg/dL (83-110); Potassium 3.1 mmol/L (3.5-5.1); Sodium 124 mmol/L (136-145)
--- NOTE | 2020-04-06 15:38 | PDOC.BPN ---
- Brief Progress Note Again later this afternoon around 3:20 PM i visited her and updated her. Patient states that she has a difficult time controlling her INR level. she takes Lasix 80 mg daily. She used to see dietetic tech at [facility] in [place] and she is not following with him anymore as they are not able to see her in the Coumadin clinic. She likes to see Dr. Ruiz Gao possibly during inpatient. He takes Xanax throughout the day as needed and 2 tablets at nighttime. Xanax given as 4 times a day as needed and if we can provide n ighttime 2 tablets as she takes at home. She is also frustrated with her inability that she is not able to move around as much as she likes with her hx of left above-knee amputation and right knee with arthritis, Patient lives alone and home health care visits her almost 7 days a week. Original Note:
[2020-04-06] MEDS ORDERED: Nitroglycerin 0.4 MG TAB (25 Tab Bottle) SL PRN (15:42)
[2020-04-06] MEDS: Mometasone 200 MCG/Formoterol 5 MCG 120 PUFF INHALER INH SCH (19:27)
--- NOTE | 2020-04-06 19:46 | CON ---
DATE OF CONSULTATION: 04/06/2020 REASON FOR CONSULTATION: Supratherapeutic INR. [employer] HANDYMAN: Guillermo Pearson MD HISTORY OF PRESENT ILLNESS: Ms. Clemens is a pleasant 79-year-old white female, who comes to the hospital for urinary tract infection. She was having symptoms concerning for UTI with burning urethra. She does have an indwelling Garcia catheter. She was having what sounds to be bladder spasms and was having urine come out on the sides of the Garcia catheter. She apparently had antibiotics as an outpatient and the situation was not improving, so she was advised by her primary care doctor to come in for further evaluation. She was admitted, found to have an INR of 6.2, and was started on antibiotics. She has a history of COPD and dilated cardiomyopathy with an EF of 20% to 25%. She has been on Coumadin for many years for mechanical mitral valve and her goal INR is 2.5 to 3.5. She has been on anticoagulation for many many years and she usually controls her INR with some greens when it is a little bit higher than normal. She eats more leafy greens. PAST MEDICAL HISTORY: 1. COPD. 2. Bronchial asthma. 3. Chronic atrial fibrillation. 4. Hypertension. 5. Hyperlipidemia. 6. Mitral valve prolapse, status post mechanical mitral valve replacement. 7. Renal cell carcinoma with splenic metastasis. 8. Lymphoma. 9. Osteoarthritis. PAST SURGICAL HISTORY: 1. Hernia repair. 2. Hysterectomy. 3. Appendectomy. 4. Nephrectomy. 5. Mechanical mitral valve replacement. SOCIAL HISTORY: No alcohol, tobacco, or drugs. Quit smoking recently. FAMILY HISTORY: Noncontributory. OUTPATIENT MEDICATIONS: 1. Lasix 80 mg a day. 2. Zoloft 25 mg a day. 3. Carvedilol 3.125 b.i.d. 4. Aspirin 81 a day. 5. Tessalon Perles. 6. Albuterol inhaler. 7. Breo Ellipta 200/25 mcg a day. 8. Tylenol p.r.n. 9. Levothyroxine 150 mcg a day. 10. Ferrous sulfate 325 b.i.d. 11. Calcium carbonate. 12. Pramipexole. 13. Pantoprazole 40 mg a day. 14. Fish oil. 15. Sublingual nitroglycerin p.r.n. 16. Warfarin 5 mg a day. 17. Stool softener. 18. Senna p.r.n. 19. Prazosin 1 mg a day. 20. Trazodone. 21. Alprazolam p.r.n. 22. Atorvastatin 40 mg a day. 23. Seroquel 300 mg at bedtime. ALLERGIES: CODEINE AND SULFA DRUGS. REVIEW OF SYSTEMS: A 12-point review of systems was done, is all negative unless stated in the history of present illness. PHYSICAL EXAMINATION: VITAL SIGNS: Temperature 97.7, pulse 78, respiratory rate 20, saturating 96% on room air, blood pressure 130/47. GENERAL: Awake, alert and oriented x3, in no distress. HEENT: Normocephalic and atraumatic. NECK: Supple. LUNGS: Reduced breath sounds with bilateral rhonchi. No wheezing. ABDOMEN: Soft. Positive bowel sounds. CARDIOVASCULAR: S1 and S2. No S3 or S4. Irregular heart rate in the 70s. There is a crisp mechanical mitral valve sound. EXTREMITIES: Left AKA. SKIN: Warm and dry. LABORATORY DATA: Laboratory work was reviewed. White count on admission of 15 down to 13, hemoglobin of 12, hematocrit 37, and platelet count of 171. Coags; INR was 6.4, then 6.8, now back down of 6.1. Chemistries; potassium has been low at 2.9, but up to 3.1 after some replacement. Sodium was low at 124. UA with 1+ blood, 500 leukocyte esterase, but negative nitrites, 1+ urine bacteria. Microbiology shows 100,000 colony-forming units of gram-negative rods. Blood cultures negative. IMAGING DATA: Chest x-ray has not been done on this admission. Most recent echocardiogram was done back in September of 2019. Her EF was 20% to 25%. ASSESSMENT: 1. Supratherapeutic INR, likely related to her recent antibiotic therapy. 2. Positive urine culture, but negative blood cultures. Awaiting identification of organism. 3. Chronic obstructive pulmonary disease. 4. Chronic systolic heart failure, last ejection fraction at 20% to 25%. 5. Mechanical mitral valve with INR goal of 2.5 to 3.5. PLAN: 1. Continue to monitor INR. I believe that it will slowly continue to trend down, most likely elevated due to recent antibiotic regimen. We will get a BNP as it is difficult to tell her fluid status with her AKA and her difficult to auscultate lungs given her COPD. 2. Restart all her home nebulizers. I see that these have already been ordered. 3. We will repeat an echocardiogram to make sure there is no obvious vegetations developing. I do not think a CHANTELL is required at this time. Thank you for letting us to participate in the care of your patient. We will continue to follow. Job ID: [id number]
[2020-04-06] MEDS: Ferrous Sulfate 325 MG TAB PO SCH (20:30)
[2020-04-06] MEDS: Carvedilol 6.25 MG TAB PO SCH (20:30)
[2020-04-06] MEDS: Atorvastatin Calcium 40 MG TAB PO SCH (20:30)
[2020-04-06] MEDS: Senokot S 8.6-50 MG TAB PO SCH (20:30)
[2020-04-06] MEDS: Pramipexole Di-HCl 0.25 MG TAB PO SCH (20:31)
[2020-04-06] MEDS: Prazosin HCl 1 MG CAP PO SCH (22:45)
[2020-04-06] MEDS: traZODone HCl 50 MG TAB PO SCH (22:45)
[2020-04-07] MEDS: Acetaminophen 325 MG TAB PO PRN (04:57)
[2020-04-07] MEDS: Levothyroxine 150 MCG TAB PO SCH (05:03)
[2020-04-07 05:41] LABS: INR-International Normal Ratio 1.6; PTT 44.2 sec (22.9-36.1); Prothrombin Time 19.4 sec (12.0-14.7)
[2020-04-07 05:46] LABS: Anion Gap 15 mmol/L (10-20); BUN (Urea Nitrogen) 58 mg/dL (9.8-20.1); Calc. Creatinine Clearance 46 mL/min (70-130); Calcium 8.1 mg/dL (7.8-10.44); Carbon Dioxide 28 mmol/L (23-31); Chloride 86 mmol/L (98-107); Glucose 139 mg/dL (83-110); Sodium 126 mmol/L (136-145)
[2020-04-07 05:48] LABS: Potassium 2.7 mmol/L (3.5-5.1)
[2020-04-07] MEDS: Mometasone 200 MCG/Formoterol 5 MCG 120 PUFF INHALER INH SCH ×2 (06:44→19:07)
[2020-04-07] MEDS ORDERED: Potassium Chloride 20 MEQ TAB PO SCH ×2 (07:30→10:30)
[2020-04-07] MEDS ORDERED: Furosemide 80 MG TAB PO SCH (09:00)
[2020-04-07] MEDS ORDERED: Amiodarone 200 MG TAB PO SCH (09:00)
[2020-04-07] MEDS: Ferrous Sulfate 325 MG TAB PO SCH ×2 (09:42→21:05)
[2020-04-07] MEDS: Aspirin 81 mg Enteric Coated Tablet PO SCH (09:42)
[2020-04-07] MEDS: Calcium Carbonate 600 MG + Vit D TAB PO SCH (09:42)
[2020-04-07] MEDS: Carvedilol 6.25 MG TAB PO SCH ×2 (09:43→21:06)
[2020-04-07] MEDS: Fish Oil 1,000 MG CAP PO SCH (09:43)
[2020-04-07] MEDS: Benzonatate 100 MG CAP PO SCH ×3 (09:43→21:05)
[2020-04-07] MEDS: Acetaminophen 500 MG TAB PO PRN ×2 (11:26→21:09)
[2020-04-07] MEDS ORDERED: Fentanyl 100 MCG/2 ML VIAL SLOW IVP SCH ×2 (12:30→13:00)
[2020-04-07] MEDS ORDERED: Enoxaparin Sodium 100 MG/ML SYRINGE SC SCH (12:30)
[2020-04-07 12:51] LABS: INR-International Normal Ratio 1.4; Prothrombin Time 17.9 sec (12.0-14.7)
[2020-04-07] MEDS ORDERED: Fentanyl 100 MCG/2 ML VIAL SLOW IVP PRN (12:55)
[2020-04-07] MEDS ORDERED: Loratadine 10 MG TAB PO PRN (12:56)
--- NOTE | 2020-04-07 12:56 | PDOC.CPN ---
- Subjective Date: 04/07/20 Time: 12:55 Interval history: She slept on her side and woke up with lower back pain. She has had her sciatic nerve pain in the past and this is what it felt like. No other issues. Breathing at baseline. - Review of Systems General: denies: fever/chills, weight/appetite/sleep changes, night sweats, fatigue Respiratory: denies: cough, congestion, shortness of breath, exercise intolerance Cardiovascular: denies: chest pain, palpitation, edema, paroxysmal nocturnal dyspnea, orthopnea Gastrointestinal: denies: nausea, vomiting, diarrhea, constipation, abd pain, GI bleeding Musculoskeletal: reports: pain. denies: tenderness, stiffness, swelling, arthritis/arthralgias Neurological: denies: numbness, syncope, seizure, weakness - Objective Allergies/Adverse Reactions: Allergies Allergy/AdvReac Type Severity Reaction Status Date / Time codeine Allergy Verified 04/05/20 23:33 Sulfa (Sulfonamide Allergy Verified 04/05/20 23:33 Antibiotics) Visit Medications: Current Medications Acetaminophen (Acetaminophen 325 Mg Tab) 650 mg PO Q4H PRN PRN Reason: Headache/Fever Last Admin: 04/07/20 04:57 Dose: 650 mg Documented by: Acetaminophen (Acetaminophen 500 Mg Tab) 1,000 mg PO Q4H PRN PRN Reason: Pain Last Admin: 04/07/20 11:26 Dose: 1,000 mg Documented by: Albuterol Sulfate (Albuterol Sulfate 1.25 Mg/3 Ml Neb) 1.25 mg INH Q6H PRN PRN Reason: SOB &/or Wheezing Alprazolam (Alprazolam 0.25 Mg Tab) 0.25 mg PO QIDPRN PRN PRN Reason: Anxiety Last Admin: 04/06/20 22:45 Dose: 0.25 mg Documented by: Aspirin (Aspirin 81 Mg Enteric Coated Tablet) 81 mg PO DAILY [facility] Last Admin: 04/07/20 09:42 Dose: 81 mg Documented by: Atorvastatin Calcium (Atorvastatin Calcium 40 Mg Tab) 40 mg PO HS [facility] Last Admin: 04/06/20 20:30 Dose: 40 mg Documented by: Benzonatate (Benzonatate 100 Mg Cap) 100 mg PO TID [facility] Last Admin: 04/07/20 09:43 Dose: 100 mg Documented by: Calcium/Vitamin D (Calcium Carbonate 600 Mg + Vit D Tab) 1 tab PO DAILY [facility] Last Admin: 04/07/20 09:42 Dose: 1 tab Documented by: Carvedilol (Carvedilol 6.25 Mg Tab) 3.125 mg PO BID [facility] Last Admin: 04/07/20 09:43 Dose: 3.125 mg Documented by: Enoxaparin Sodium (Enoxaparin Sodium 100 Mg/Ml Syringe) 100 mg SC 0900,2100 [facility] Enoxaparin Sodium (Enoxaparin Sodium 100 Mg/Ml Syringe) 100 mg SC NOW [facility] Stop: 04/07/20 14:30 Fentanyl (Fentanyl 100 Mcg/2 Ml Vial) 50 mcg SLOW IVP NOW [facility] Stop: 04/07/20 14:30 Fentanyl (Fentanyl 100 Mcg/2 Ml Vial) 25 mcg SLOW IVP Q4HR [facility] Ferrous Sulfate (Ferrous Sulfate 325 Mg Tab) 325 mg PO BID [facility] Last Admin: 04/07/20 09:42 Dose: 325 mg Documented by: Fish Oil (Fish Oil 1,000 Mg Cap) 1,000 mg PO DAILY [facility] Last Admin: 04/07/20 09:43 Dose: 1,000 mg Documented by: Furosemide (Furosemide 80 Mg Tab) 80 mg PO DAILY [facility] Last Admin: 04/07/20 09:43 Dose: 80 mg Documented by: Ceftriaxone Sodium 1 gm/ (Sodium Chloride) 100 mls @ 200 mls/hr IVPB 1500 [facility] Last Admin: 04/06/20 14:44 Dose: 100 mls Documented by: Levothyroxine Sodium (Levothyroxine 150 Mcg Tab) 150 mcg PO 0600 [facility] Last Admin: 04/07/20 05:03 Dose: 150 mcg Documented by: Mometasone Furoate/Formoterol Fumar (Mometasone 200 Mcg/Formoterol 5 Mcg 120 Puff Inhaler) 2 puff INH BID-RT [facility] Last Admin: 04/07/20 06:44 Dose: 2 puff Documented by: Nitroglycerin (Nitroglycerin 0.4 Mg Tab (25 Tab Bottle)) 0.4 mg SL Q5MIN PRN PRN Reason: Chest Pain Ondansetron HCl (Ondansetron Odt 4 Mg Tab) 4 mg PO Q6H PRN PRN Reason: Nausea/Vomiting Pantoprazole Sodium (Pantoprazole 40 Mg Tab) 40 mg PO DAILY [facility] Last Admin: 04/07/20 09:42 Dose: 40 mg Documented by: Pramipexole Dihydrochloride (Pramipexole Di-Hcl 0.25 Mg Tab) 0.5 mg PO [facility] Last Admin: 04/06/20 20:31 Dose: 0.5 mg Documented by: Prazosin HCl (Prazosin Hcl 1 Mg Cap) 1 mg PO [facility] Last Admin: 04/06/20 22:45 Dose: 1 mg Documented by: Quetiapine Fumarate (Quetiapine Fumarate 300 Mg Tab) 300 mg PO [facility] Last Admin: 04/06/20 22:45 Dose: 300 mg Documented by: Senna/Docusate Sodium (Senokot S 8.6-50 Mg Tab) 2 tab PO BID PRN PRN Reason: Constipation Senna/Docusate Sodium (Senokot S 8.6-50 Mg Tab) 1 tab PO [facility] Last Admin: 04/06/20 20:30 Dose: 1 tab Documented by: Sertraline HCl (Sertraline Hcl 25 Mg Tab) 25 mg PO DAILY [facility] Last Admin: 04/07/20 09:43 Dose: 25 mg Documented by: Trazodone HCl (Trazodone Hcl 50 Mg Tab) 50 mg PO [facility] Last Admin: 04/06/20 22:45 Dose: 50 mg Documented by: Warfarin Sodium (Warfarin Sodium 5 Mg Tab) 5 mg PO 1700 [facility] Vital Signs & Weight: Vital Signs Temp Pulse Resp BP BP Pulse Ox 04/07/20 10:07 98 F 68 17 136/82 98 04/07/20 09:34 68 17 136/82 98 04/07/20 05:13 97.6 F 67 20 112/53 L 97 Weight 218 lb 9.59 oz - Physical Exam General: alert & oriented x3 HEENT: mucus membranes moist Neck: supple neck Cardiac: regular rate and rhythm Lungs: bibasilar rales Neuro: grossly intact, no lateralizing findings Abdomen: active bowel sounds Extremities: no edema Skin: clear Musculoskeletal: no pain - Labs Result Diagrams: 04/06/20 05:54 04/07/20 05:05 - Assessment/Plan Assessment/Plan: 1. Complicated UTI 2. Indwelling stanley catheter 3. Bladder spasms. 4. Supratherapeutic INR, now subtherapeutic. 5. Mechanical mitral valve 6. COPD PLAN: - Will restart warfarin this evening - Will cover with full dose lovenox - Will repeat INR this afternoon make sure her new level is real and not a lab error. - Abx per primary team and will need pharmacy to monitor INR's, warfarin doses and adjustements for abx interactions. - Echo pending.
--- NOTE | 2020-04-07 13:00 | PDOC.HOSPP ---
- Subjective Encounter Date: 04/07/20 Encounter Time: 11:00 Subjective: Patient seen this morning. During my rounds Dr. Anitra marley in the room. Patient had list of complaints and concerns. All addressed. She has allergy, sinus giving her trouble. Her back is bothering her the knee pain is to overbearing any movement hurts her. Her INR is significantly dropped. We are bridging that with the Lovenox. Short-acting fentanyl as needed for her pain as recommended by cardiology. She is on stool softener. We will continue with the ceftriaxone for now as INR needs to be therapeutic prior to changing to IV or p.o. antibiotics as any antibiotic have the tendency to interact with the Coumadin and would alter the INR. If so we will wait until the INR therapeutic and then switch her to p.o. antibiotic. - Objective Vital Signs & Weight: Vital Signs (12 hours) Temp Pulse Resp BP BP Pulse Ox 04/07/20 10:07 98 F 68 17 136/82 98 04/07/20 09:34 68 17 136/82 98 04/07/20 05:13 97.6 F 67 20 112/53 L 97 Weight Weight 218 lb 9.59 oz I&O: 04/06/20 04/07/20 04/08/20 06:59 06:59 06:59 Intake Total 1310 2810 Output Total 1200 1950 700 Balance 110 860 -700 Result Diagrams: 04/06/20 05:54 04/07/20 05:05 Hospitalist ROS - Medication Medications: Active Medications Generic Name Dose Route Start Last Admin Trade Name Freq PRN Reason Stop Dose Admin Acetaminophen 650 mg 04/05/20 18:09 04/07/20 04:57 Acetaminophen 325 Mg Tab PO 650 mg Q4H PRN Administration Headache/Fever Acetaminophen 1,000 mg 04/06/20 11:42 04/07/20 11:26 Acetaminophen 500 Mg Tab PO 1,000 mg Q4H PRN Administration Pain Alprazolam 0.25 mg 04/05/20 18:12 04/06/20 22:45 Alprazolam 0.25 Mg Tab PO 0.25 mg QIDPRN PRN Administration Anxiety Aspirin 81 mg 04/07/20 09:00 04/07/20 09:42 Aspirin 81 Mg Enteric Coated Tablet PO 81 mg DAILY LISA Administration Atorvastatin Calcium 40 mg 04/05/20 21:00 04/06/20 20:30 Atorvastatin Calcium 40 Mg Tab PO 40 mg HS LISA Administration Benzonatate 100 mg 04/06/20 15:00 04/07/20 09:43 Benzonatate 100 Mg Cap PO 100 mg TID LISA Administration Calcium/Vitamin D 1 tab 04/07/20 09:00 04/07/20 09:42 Calcium Carbonate 600 Mg + Vit D Tab PO 1 tab DAILY LISA Administration Carvedilol 3.125 mg 04/06/20 21:00 04/07/20 09:43 Carvedilol 6.25 Mg Tab PO 3.125 mg BID LISA Administration Ferrous Sulfate 325 mg 04/06/20 21:00 04/07/20 09:42 Ferrous Sulfate 325 Mg Tab PO 325 mg BID LISA Administration Fish Oil 1,000 mg 04/07/20 09:00 04/07/20 09:43 Fish Oil 1,000 Mg Cap PO 1,000 mg DAILY LISA Administration Furosemide 80 mg 04/07/20 09:00 04/07/20 09:43 Furosemide 80 Mg Tab PO 80 mg DAILY LISA Administration Ceftriaxone Sodium 1 gm/ 100 mls @ 200 mls/hr 04/06/20 15:00 04/06/20 14:44 Sodium Chloride IVPB 100 mls 1500 LISA Administration Levothyroxine Sodium 150 mcg 04/07/20 06:00 04/07/20 05:03 Levothyroxine 150 Mcg Tab PO 150 mcg 0600 LISA Administration Mometasone Furoate/Formoterol Fumar 2 puff 04/06/20 18:30 04/07/20 06:44 Mometasone 200 Mcg/Formoterol 5 Mcg 120 Puff Inhaler INH 2 puff BID-RT LISA Administration Pantoprazole Sodium 40 mg 04/07/20 09:00 04/07/20 09:42 Pantoprazole 40 Mg Tab PO 40 mg DAILY LISA Administration Pramipexole Dihydrochloride 0.5 mg 04/06/20 21:00 04/06/20 20:31 Pramipexole Di-Hcl 0.25 Mg Tab PO 0.5 mg HS LISA Administration Prazosin HCl 1 mg 04/06/20 21:00 04/06/20 22:45 Prazosin Hcl 1 Mg Cap PO 1 mg HS LISA Administration Quetiapine Fumarate 300 mg 04/05/20 21:00 04/06/20 22:45 Quetiapine Fumarate 300 Mg Tab PO 300 mg HS LISA Administration Senna/Docusate Sodium 1 tab 04/06/20 21:00 04/06/20 20:30 Senokot S 8.6-50 Mg Tab PO 1 tab HS LISA Administration Sertraline HCl 25 mg 04/07/20 09:00 04/07/20 09:43 Sertraline Hcl 25 Mg Tab PO 25 mg DAILY LISA Administration Trazodone HCl 50 mg 04/06/20 21:00 04/06/20 22:45 Trazodone Hcl 50 Mg Tab PO 50 mg HS LISA Administration Hospitalist Exam Vitals: Vital Signs (12 hours) Temp Pulse Resp BP BP Pulse Ox 04/07/20 10:07 98 F 68 17 136/82 98 04/07/20 09:34 68 17 136/82 98 04/07/20 05:13 97.6 F 67 20 112/53 L 97 Weight Weight 218 lb 9.59 oz General Appearance: NAD, awake alert Eye: PERRL ENT: normocephalic atraumatic Neck: supple Heart: RRR, normal peripheral pulses Respiratory: CTAB, normal chest expansion Gastrointestinal: soft Extremities - other findings: Left above-knee amputation history Neurological: cranial nerve grossly intact, no focal deficits Psychiatric: normal affect, normal behavior, A&O x 3 Hosp A/P - Plan Complicated UTI with recurrent infections Outpatient p.o. antibiotic treatment failure --Urine culture growing gram-negative rods sensitivity pending -Started on ceftriaxone Supratherapeutic INR Mechanical mitral valve replacement in 2002 and on Coumadin Chronic atrial fibrillation -Repeat INR of 6.1 -Patient without any sign of bleeding however she does have a chronic ecchymosis that does not appear to be a new or fresh. -Target between 3-4 INR Leukocytosis that is trending down. History of renal cell cancer /splenic metastasis COPD stable currently - follow-up on the urine and blood cultures -Follow-up on INR -Holding Coumadin until INR becomes 4 and then will start her back on the Coumadin. Physical therapy consult placed. 12th She has allergy, sinus giving her trouble. Her back is bothering her the knee pain is to overbearing any movement hurts her. Her INR is significantly dropped. We are bridging that with the Lovenox. Short-acting fentanyl as needed for her pain as recommended by cardiology. She is on stool softener. We will continue with the ceftriaxone for now as INR needs to be therapeutic prior to changing to IV or p.o. antibiotics as any antibiotic have the tendency to interact with the Coumadin and would alter the INR. If so we will wait until th e INR therapeutic and then switch her to p.o. antibiotic.
[2020-04-07] MEDS: cefTRIAXone\\ROCEPHIN 1 GM in Sodium Chloride 0.9% 100 ML IVPB SCH (14:00)
[2020-04-07] MEDS: Fentanyl 100 MCG/2 ML VIAL SLOW IVP PRN ×2 (14:01→18:04)
[2020-04-07] MEDS: Furosemide 40 MG/4 ML VIAL SLOW IVP SCH (14:03)
[2020-04-07] MEDS: Warfarin Sodium 5 MG TAB PO SCH (16:17)
[2020-04-07] MEDS: Enoxaparin Sodium 100 MG/ML SYRINGE SC SCH (21:00)
[2020-04-07] MEDS: Atorvastatin Calcium 40 MG TAB PO SCH (21:05)
[2020-04-07] MEDS: Senokot S 8.6-50 MG TAB PO SCH (21:08)
[2020-04-07] MEDS: Prazosin HCl 1 MG CAP PO SCH (21:13)
[2020-04-07] MEDS: traZODone HCl 50 MG TAB PO SCH (21:21)
[2020-04-07] MEDS: Pramipexole Di-HCl 0.25 MG TAB PO SCH (21:21)
[2020-04-07] MEDS: ALPRAZolam 0.25 MG TAB PO PRN (21:23)
[2020-04-08] MEDS: Fentanyl 100 MCG/2 ML VIAL SLOW IVP PRN ×5 (00:36→23:22)
[2020-04-08 05:31] LABS: #Eosinphils 0.3 thou/uL (0.0-0.7); #Monocytes 0.7 thou/uL (0.11-0.59); #Neutrophils 7.9 thou/uL (1.40-6.50); %Basophils 0.2 % (0.0-1.0); %Eosinophils 3.1 % (0.0-10.0); %Lymphocytes 10.2 % (21.0-51.0); %Monocytes 7.4 % (0.0-10.0); Hemoglobin 12.3 g/dL (12.0-16.0); Mean Corpuscular HGB CONC 34.2 g/dL (32.0-36.0); Mean Corpuscular Volume 87.7 fL (78.0-98.0); Mean Platelet Volume 9.4 fL (7.4-10.4); Platelet Count 148 thou/uL (130-400); RBC Distribution Width 17.2 % (11.5-14.5); Red Blood Cell (RBC) Count 4.09 mill/uL (4.20-5.40)
[2020-04-08 05:40] LABS: INR-International Normal Ratio 1.5; Prothrombin Time 17.9 sec (12.0-14.7)
[2020-04-08 05:41] LABS: PTT 65.4 sec (22.9-36.1)
[2020-04-08] MEDS: Levothyroxine 150 MCG TAB PO SCH (05:48)
[2020-04-08] MEDS: Furosemide 40 MG/4 ML VIAL SLOW IVP SCH (05:49)
[2020-04-08 05:52] LABS: Anion Gap 16 mmol/L (10-20); BUN (Urea Nitrogen) 55 mg/dL (9.8-20.1); Calc. Creatinine Clearance 47 mL/min (70-130); Calcium 8.3 mg/dL (7.8-10.44); Carbon Dioxide 25 mmol/L (23-31); Chloride 88 mmol/L (98-107); Glucose 138 mg/dL (83-110); Sodium 126 mmol/L (136-145)
[2020-04-08 06:06] LABS: Potassium 2.7 mmol/L (3.5-5.1)
[2020-04-08] MEDS ORDERED: Electrolyte Replacement Protocol 1 EACH FS SCH (06:15)
[2020-04-08] MEDS: Potassium Chloride 20 MEQ TAB PO SCH ×2 (08:00→11:24)
[2020-04-08] MEDS: Mometasone 200 MCG/Formoterol 5 MCG 120 PUFF INHALER INH SCH ×2 (08:38→18:47)
[2020-04-08] MEDS: Ferrous Sulfate 325 MG TAB PO SCH ×2 (09:21→20:35)
[2020-04-08] MEDS: Benzonatate 100 MG CAP PO SCH ×3 (09:21→20:35)
[2020-04-08] MEDS: Fish Oil 1,000 MG CAP PO SCH (09:21)
[2020-04-08] MEDS: Aspirin 81 mg Enteric Coated Tablet PO SCH (09:21)
[2020-04-08] MEDS: Calcium Carbonate 600 MG + Vit D TAB PO SCH (09:21)
[2020-04-08] MEDS: Carvedilol 6.25 MG TAB PO SCH ×2 (09:22→20:34)
[2020-04-08] MEDS: Enoxaparin Sodium 100 MG/ML SYRINGE SC SCH ×2 (09:23→20:35)
--- NOTE | 2020-04-08 12:30 | PDOC.HOSPP ---
- Subjective Encounter Date: 04/08/20 Encounter Time: 12:28 Subjective: F/u: UTI The patient states her leaking around her stanley catheter has resolved. She states she needs the stanley until August and is frustrated because she is sick all the time. Denies abd pain, nausea, vomiting States she is having acute sciatica currently radiating down her left leg. She states gabapentin makes her hallucinate, fentanyl helped. Lyrica does not work. - Objective Vital Signs & Weight: Vital Signs (12 hours) Temp Pulse Resp BP BP BP Pulse Ox 04/08/20 09:22 143/79 H 04/08/20 08:38 90 20 94 L 04/08/20 08:00 94 L 04/08/20 07:41 97.7 F 69 20 127/64 94 L 04/08/20 05:10 97.6 F 65 20 121/72 94 L 04/08/20 00:30 98.2 F 70 19 100/69 98 Weight Weight 218 lb 9.59 oz I&O: 04/07/20 04/08/20 04/09/20 06:59 06:59 06:59 Intake Total 2810 1000 Output Total 1950 2900 1000 Balance 860 -1900 -1000 Result Diagrams: 04/08/20 05:18 04/08/20 05:18 Hospitalist ROS - Review of Systems Constitutional: denies: fever, chills Musculoskeletal: reports: other (sciatica) - Medication Medications: Active Medications Generic Name Dose Route Start Last Admin Trade Name Freq PRN Reason Stop Dose Admin Acetaminophen 650 mg 04/05/20 18:09 04/07/20 04:57 Acetaminophen 325 Mg Tab PO 650 mg Q4H PRN Administration Headache/Fever Acetaminophen 1,000 mg 04/06/20 11:42 04/07/20 21:09 Acetaminophen 500 Mg Tab PO 1,000 mg Q4H PRN Administration Pain Alprazolam 0.25 mg 04/05/20 18:12 04/07/20 21:23 Alprazolam 0.25 Mg Tab PO 0.25 mg QIDPRN PRN Administration Anxiety Aspirin 81 mg 04/07/20 09:00 04/08/20 09:21 Aspirin 81 Mg Enteric Coated Tablet PO 81 mg DAILY LISA Administration Atorvastatin Calcium 40 mg 04/05/20 21:00 02/12/21 21:05 Atorvastatin Calcium 40 Mg Tab PO 40 mg HS LISA Administration Benzonatate 100 mg 04/06/20 15:00 04/08/20 09:21 Benzonatate 100 Mg Cap PO 100 mg TID LISA Administration Calcium/Vitamin D 1 tab 04/07/20 09:00 04/08/20 09:21 Calcium Carbonate 600 Mg + Vit D Tab PO 1 tab DAILY LISA Administration Carvedilol 3.125 mg 04/06/20 21:00 04/08/20 09:22 Carvedilol 6.25 Mg Tab PO 3.125 mg BID LISA Administration Enoxaparin Sodium 100 mg 04/07/20 21:00 04/08/20 09:23 Enoxaparin Sodium 100 Mg/Ml Syringe SC 100 mg 0900,2100 LISA Administration Fentanyl 25 mcg 04/07/20 13:07 04/08/20 11:22 Fentanyl 100 Mcg/2 Ml Vial SLOW IVP 25 mcg Q4HR PRN Administration Pain Ferrous Sulfate 325 mg 04/06/20 21:00 04/08/20 09:21 Ferrous Sulfate 325 Mg Tab PO 325 mg BID LISA Administration Fish Oil 1,000 mg 04/07/20 09:00 04/08/20 09:21 Fish Oil 1,000 Mg Cap PO 1,000 mg DAILY LISA Administration Furosemide 80 mg 04/07/20 14:00 04/08/20 05:49 Furosemide 40 Mg/4 Ml Vial SLOW IVP 80 mg 0600,1400 LISA Administration Levothyroxine Sodium 150 mcg 04/07/20 06:00 04/08/20 05:48 Levothyroxine 150 Mcg Tab PO 150 mcg 0600 LISA Administration Mometasone Furoate/Formoterol Fumar 2 puff 04/06/20 18:30 04/08/20 08:38 Mometasone 200 Mcg/Formoterol 5 Mcg 120 Puff Inhaler INH 2 puff BID-RT LISA Administration Pantoprazole Sodium 40 mg 04/07/20 09:00 04/08/20 09:21 Pantoprazole 40 Mg Tab PO 40 mg DAILY LISA Administration Pramipexole Dihydrochloride 0.5 mg 04/06/20 21:00 04/07/20 21:21 Pramipexole Di-Hcl 0.25 Mg Tab PO 0.5 mg HS LISA Administration Prazosin HCl 1 mg 04/06/20 21:00 04/07/20 21:13 Prazosin Hcl 1 Mg Cap PO 1 mg HS LISA Administration Quetiapine Fumarate 300 mg 04/05/20 21:00 04/07/20 21:20 Quetiapine Fumarate 300 Mg Tab PO 300 mg HS LISA Administration Senna/Docusate Sodium 1 tab 04/06/20 21:00 04/07/20 21:08 Senokot S 8.6-50 Mg Tab PO 1 tab HS LISA Administration Sertraline HCl 25 mg 04/07/20 09:00 04/08/20 09:22 Sertraline Hcl 25 Mg Tab PO 25 mg DAILY LISA Administration Sodium Chloride 10 ml 04/08/20 09:00 04/08/20 09:23 Flush - Normal Saline 10 Ml Syringe IVF 10 ml Q12HR LISA Administration Trazodone HCl 50 mg 04/06/20 21:00 04/07/20 21:21 Trazodone Hcl 50 Mg Tab PO 50 mg HS LISA Administration Warfarin Sodium 5 mg 04/07/20 17:00 04/07/20 16:17 Warfarin Sodium 5 Mg Tab PO 5 mg 1700 LISA Administration Hospitalist Exam Vitals: Vital Signs (12 hours) Temp Pulse Resp BP BP BP Pulse Ox 04/08/20 09:22 143/79 H 04/08/20 08:38 90 20 94 L 04/08/20 08:00 94 L 04/08/20 07:41 97.7 F 69 20 127/64 94 L 04/08/20 05:10 97.6 F 65 20 121/72 94 L 04/08/20 00:30 98.2 F 70 19 100/69 98 Weight Weight 218 lb 9.59 oz General Appearance: NAD, awake alert Eye: PERRL, anicteric sclera ENT: normocephalic atraumatic, no oropharyngeal lesions Neck: no JVD Heart: RRR, no murmur, no gallops, no rubs Respiratory: CTAB, no wheezes, no rales, no ronchi Gastrointestinal: soft, non-tender, non-distended Extremities: no cyanosis, no clubbing Extremities - other findings: left AKA Skin: normal turgor, no lesions, no rashes Hosp A/P - Plan This is an 79 year old female who presented with dysuria around stanley catheter, admitted for complicated UTI. 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 She has been receiving IV ceftriaxone which shows intermediate sensitivity. Will switch to meropenem - patient does not want to go home, and wants to complete IV antibiotics while in the hospital since she lives alone and has no family - will consult ID due to recurrent UTI #Hyponatremia #Hypokalemia - sodium 126, potassium 2.7 . Given potassium replacement. Will hold lasix until hypokalemia resolves - she was given 80 mg IV lasix bid, will hold for now #CHERIE on CKD #Solitary left kidney - creatinine improved to 1.5 from 2.0. Will continue to monitor Sciatica - continue tylenol 1000 mg q6 hours prn. Does not want gabapentin or lyrica #Chronic afib #Mechanical mitral valve placement #Chronic systolic heart failure - warfarin 5 mg started 04/07. INR 1.5 today. Continue current dose . Lili is following - hold lasix due to severe hypokalemia S/p Left AKA - PT and OT are following
[2020-04-08 13:33] LABS: Anion Gap 20 mmol/L (10-20); BUN (Urea Nitrogen) 52 mg/dL (9.8-20.1); Calc. Creatinine Clearance 47 mL/min (70-130); Calcium 9.1 mg/dL (7.8-10.44); Carbon Dioxide 25 mmol/L (23-31); Chloride 88 mmol/L (98-107); Glucose 111 mg/dL (83-110); Sodium 130 mmol/L (136-145)
[2020-04-08 14:08] LABS: Potassium 2.7 mmol/L (3.5-5.1)
[2020-04-08] MEDS: Potassium Bicarbonate/Cit Ac 20 MEQ TAB PO SCH ×2 (14:31→19:50)
[2020-04-08] MEDS: Acetaminophen 500 MG TAB PO PRN (14:31)
[2020-04-08] MEDS: Meropenem 500 MG in Sodium Chloride 0.9% 100 ML IVPB SCH ×2 (14:33→21:38)
[2020-04-08] MEDS: Warfarin Sodium 5 MG TAB PO SCH (16:46)
[2020-04-08] MEDS: Senokot S 8.6-50 MG TAB PO SCH (20:35)
[2020-04-08] MEDS: Atorvastatin Calcium 40 MG TAB PO SCH (20:35)
[2020-04-08] MEDS ORDERED: Potassium Bicarbonate/Cit Ac 20 MEQ TAB PO SCH (21:15)
[2020-04-08] MEDS: Pramipexole Di-HCl 0.25 MG TAB PO SCH (21:16)
[2020-04-08] MEDS: ALPRAZolam 0.25 MG TAB PO PRN (21:16)
[2020-04-08] MEDS: Prazosin HCl 1 MG CAP PO SCH (21:16)
[2020-04-08] MEDS: traZODone HCl 50 MG TAB PO SCH (21:16)
[2020-04-09 05:13] LABS: #Eosinphils 0.3 thou/uL (0.0-0.7); #Lymphocytes 1.1 thou/uL (1.20-3.40); #Monocytes 0.9 thou/uL (0.11-0.59); #Neutrophils 7.3 thou/uL (1.40-6.50); %Basophils 0.5 % (0.0-1.0); %Eosinophils 3.2 % (0.0-10.0); %Lymphocytes 11.1 % (21.0-51.0); %Monocytes 9.1 % (0.0-10.0); %Neutrophils 76.1 % (42.0-75.0); Hemoglobin 11.7 g/dL (12.0-16.0); Mean Corpuscular HGB CONC 33.6 g/dL (32.0-36.0); Mean Corpuscular Volume 89.1 fL (78.0-98.0); Mean Platelet Volume 9.4 fL (7.4-10.4); Platelet Count 155 thou/uL (130-400); RBC Distribution Width 17.5 % (11.5-14.5); Red Blood Cell (RBC) Count 3.92 mill/uL (4.20-5.40); White Blood Cell (WBC) Count 9.7 thou/uL (4.8-10.8)
[2020-04-09 05:18] LABS: INR-International Normal Ratio 1.9; Prothrombin Time 22.5 sec (12.0-14.7)
[2020-04-09 05:19] LABS: PTT 96.6 sec (22.9-36.1)
[2020-04-09] MEDS: Meropenem 500 MG in Sodium Chloride 0.9% 100 ML IVPB SCH ×3 (05:51→21:05)
[2020-04-09] MEDS: Levothyroxine 150 MCG TAB PO SCH (05:52)
[2020-04-09 05:53] LABS: Anion Gap 13 mmol/L (10-20); BUN (Urea Nitrogen) 49 mg/dL (9.8-20.1); Calc. Creatinine Clearance 47 mL/min (70-130); Calcium 8.5 mg/dL (7.8-10.44); Carbon Dioxide 30 mmol/L (23-31); Chloride 92 mmol/L (98-107); Glucose 134 mg/dL (83-110); Potassium 4.8 mmol/L (3.5-5.1); Sodium 130 mmol/L (136-145)
[2020-04-09] MEDS: Mometasone 200 MCG/Formoterol 5 MCG 120 PUFF INHALER INH SCH ×2 (07:08→18:43)
[2020-04-09] MEDS: Aspirin 81 mg Enteric Coated Tablet PO SCH (09:58)
[2020-04-09] MEDS: Fish Oil 1,000 MG CAP PO SCH (09:58)
[2020-04-09] MEDS: Ferrous Sulfate 325 MG TAB PO SCH ×2 (09:58→20:44)
[2020-04-09] MEDS: Carvedilol 6.25 MG TAB PO SCH ×2 (09:58→20:44)
[2020-04-09] MEDS: Benzonatate 100 MG CAP PO SCH ×3 (09:58→20:45)
[2020-04-09] MEDS: Calcium Carbonate 600 MG + Vit D TAB PO SCH (09:58)
[2020-04-09] MEDS: Enoxaparin Sodium 100 MG/ML SYRINGE SC SCH ×2 (09:59→20:45)
[2020-04-09] MEDS: Fentanyl 100 MCG/2 ML VIAL SLOW IVP PRN (11:24)
--- NOTE | 2020-04-09 12:14 | RAD ---
Exam: Chest one view HISTORY:Cough Comparison: 01/28/2020 FINDINGS: Cardiac silhouette:Stable cardiomegaly, prosthetic aortic valve and sternotomy wires. Aorta: Atherosclerosis Pulmonary vessels: Normal Costophrenic angles: Minimal blunting of left costophrenic angle due to small effusion LUNGS: Chronic changes along parenchyma. No mass or consolidation. Pneumothorax: None Osseous abnormalities: None IMPRESSION: Atherosclerosis. Cardiomegaly.
--- NOTE | 2020-04-09 15:47 | PDOC.HOSPP ---
- Subjective Encounter Date: 04/09/20 Encounter Time: 11:00 Subjective: F/u: back pain The patient complain of severe back pain. She states fentanyl works for a few hours. She has been taking tylenol without relief. States her sciatica is flaring up and she is unable to get up from the bed. She was upset because she wanted therapy to help her to the bathroom Therapy saw her and wasn't able to stand her up due to severe pain. She has no significant cough today or chest congestion - Objective Vital Signs & Weight: Vital Signs (12 hours) Temp Pulse Resp BP Pulse Ox 04/09/20 09:51 98.7 F 72 18 130/75 99 Weight Weight 218 lb 9.59 oz I&O: 04/08/20 04/09/20 04/10/20 06:59 06:59 06:59 Intake Total 1000 800 Output Total 2900 2400 Balance -1900 -1600 Result Diagrams: 04/09/20 04:46 04/09/20 04:46 Hospitalist ROS - Review of Systems Constitutional: denies: fever, chills - Medication Medications: Active Medications Generic Name Dose Route Start Last Admin Trade Name Freq PRN Reason Stop Dose Admin Acetaminophen 650 mg 04/05/20 18:09 04/07/20 04:57 Acetaminophen 325 Mg Tab PO 650 mg Q4H PRN Administration Headache/Fever Acetaminophen 1,000 mg 04/06/20 11:42 04/08/20 14:31 Acetaminophen 500 Mg Tab PO 1,000 mg Q4H PRN Administration Pain Alprazolam 0.25 mg 04/05/20 18:12 04/08/20 21:16 Alprazolam 0.25 Mg Tab PO 0.25 mg QIDPRN PRN Administration Anxiety Aspirin 81 mg 04/07/20 09:00 04/09/20 09:58 Aspirin 81 Mg Enteric Coated Tablet PO 81 mg DAILY LISA Administration Atorvastatin Calcium 40 mg 04/05/20 21:00 04/08/20 20:35 Atorvastatin Calcium 40 Mg Tab PO 40 mg HS LISA Administration Benzonatate 100 mg 04/06/20 15:00 04/09/20 14:49 Benzonatate 100 Mg Cap PO 100 mg TID LISA Administration Calcium/Vitamin D 1 tab 04/07/20 09:00 04/09/20 09:58 Calcium Carbonate 600 Mg + Vit D Tab PO 1 tab DAILY LISA Administration Carvedilol 3.125 mg 04/06/20 21:00 04/09/20 09:58 Carvedilol 6.25 Mg Tab PO 3.125 mg BID LISA Administration Enoxaparin Sodium 100 mg 04/07/20 21:00 04/09/20 09:59 Enoxaparin Sodium 100 Mg/Ml Syringe SC 100 mg 0900,2100 LISA Administration Fentanyl 25 mcg 04/07/20 13:07 04/09/20 11:24 Fentanyl 100 Mcg/2 Ml Vial SLOW IVP 25 mcg Q4HR PRN Administration Pain Ferrous Sulfate 325 mg 04/06/20 21:00 04/09/20 09:58 Ferrous Sulfate 325 Mg Tab PO 325 mg BID LISA Administration Fish Oil 1,000 mg 04/07/20 09:00 04/09/20 09:58 Fish Oil 1,000 Mg Cap PO 1,000 mg DAILY LISA Administration Meropenem 500 mg/ Sodium 100 mls @ 200 mls/hr 04/08/20 14:00 04/09/20 14:45 Chloride IVPB 100 mls Q8HR LISA Administration Levothyroxine Sodium 150 mcg 04/07/20 06:00 04/09/20 05:52 Levothyroxine 150 Mcg Tab PO 150 mcg 0600 LISA Administration Mometasone Furoate/Formoterol Fumar 2 puff 04/06/20 18:30 04/09/20 07:08 Mometasone 200 Mcg/Formoterol 5 Mcg 120 Puff Inhaler INH 2 puff BID-RT LISA Administration Pantoprazole Sodium 40 mg 04/07/20 09:00 04/09/20 09:58 Pantoprazole 40 Mg Tab PO 40 mg DAILY LISA Administration Pramipexole Dihydrochloride 0.5 mg 04/06/20 21:00 04/08/20 21:16 Pramipexole Di-Hcl 0.25 Mg Tab PO 0.5 mg HS LISA Administration Prazosin HCl 1 mg 04/06/20 21:00 04/08/20 21:16 Prazosin Hcl 1 Mg Cap PO 1 mg HS LISA Administration Quetiapine Fumarate 300 mg 04/05/20 21:00 04/08/20 21:16 Quetiapine Fumarate 300 Mg Tab PO 300 mg HS LISA Administration Senna/Docusate Sodium 1 tab 04/06/20 21:00 04/08/20 20:35 Senokot S 8.6-50 Mg Tab PO 1 tab HS LISA Administration Sertraline HCl 25 mg 04/07/20 09:00 04/09/20 09:58 Sertraline Hcl 25 Mg Tab PO 25 mg DAILY LISA Administration Sodium Chloride 10 ml 04/08/20 09:00 04/09/20 09:59 Flush - Normal Saline 10 Ml Syringe IVF 10 ml Q12HR LISA Administration Trazodone HCl 50 mg 04/06/20 21:00 04/08/20 21:16 Trazodone Hcl 50 Mg Tab PO 50 mg HS LISA Administration Warfarin Sodium 5 mg 04/07/20 17:00 04/08/20 16:46 Warfarin Sodium 5 Mg Tab PO 5 mg 1700 LISA Administration Hospitalist Exam Vitals: Vital Signs (12 hours) Temp Pulse Resp BP Pulse Ox 04/09/20 09:51 98.7 F 72 18 130/75 99 Weight Weight 218 lb 9.59 oz General Appearance: NAD, awake alert Eye: PERRL, anicteric sclera ENT: normocephalic atraumatic, no oropharyngeal lesions Neck: no JVD Heart: RRR, no murmur, no gallops, no rubs Respiratory: CTAB, no wheezes, no rales, no ronchi Gastrointestinal: soft, non-tender, non-distended, normal bowel sounds Gastrointestinal - other findings: stanley in place Extremities: no cyanosis, no clubbing, no edema Skin: normal turgor, no lesions, no rashes Neurological: cranial nerve grossly intact, normal sensation to touch, no weakness Musculoskeletal: normal tone, normal strength, no muscle wasting Musculoskeletal - other findings: severe back pain with moving Psychiatric: normal affect, normal behavior, A&O x 3 Hosp A/P - Plan This is an 79 year old female who presented with dysuria around stanley catheter, admitted for complicated UTI. 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 She has been receiving IV ceftriaxone which shows intermediate sensitivity. Switched to meropenem on 04/08 . She wants to complete course of antibiotics while in the hospital - ID consulted due to history of recurrent UTI Severe back pain - will check MRI lumbar spine. Continue fentanyl prn for pain. Will add percocet prn. Refuses gabapentin or lyrica - continue with physical therapy #Hyponatremia - sodium has improved to 130, will continue to monitor, hold lasix for now #Hypokalemia - resolved, potassium up to 4.0 #CHERIE on CKD #Solitary left kidney - creatinine improved to 1.4. She was getting diuresed. Will monitor itor #Chronic afib #Mechanical mitral valve placement #Chronic systolic heart failure - warfarin 5 mg started 04/07. INR up to 1.9 today. Continue current dose . Dr Pearson is following S/p Left AKA - PT and OT are following
[2020-04-09] MEDS: oxyCODONE/Acetaminophen 5 mg/325 mg Tablet PO PRN ×2 (16:30→21:00)
[2020-04-09] MEDS: Warfarin Sodium 5 MG TAB PO SCH (16:31)
--- NOTE | 2020-04-09 17:48 | CT ---
CT ABDOMEN AND PELVIS WITHOUT CONTRAST: Comparison: 10-30-11 History: Flank pain, leukocytosis and urinary tract infection. History of lymphoma. Technique: Multiple axial images were obtained in a CT of the abdomen and pelvis without contrast. Sa gittal and coronal reformats were performed. FINDINGS: The right kidney is absent. There are gallstones in the dependent aspect of the gallbladder. The live r, left kidney, spleen, and pancreas are unremarkable. There is stable hyperplasia of the left adrena l gland. There is a stable adrenal adenoma in the right adrenal gland measuring 2.8 cm in size. A Garcia catheter is seen in the urinary bladder which has not completely decompressed. An air bubble is seen in the anterior aspect of the urinary bladder. The patient is status post hysterectomy. The l arge and small bowel are normal in caliber. The appendix is not definitely seen. Atherosclerotic calcifications are seen in the aorta. No abdominal or pelvic adenopathy are present. There is air and multiple areas of soft tissue density in the lower abdomen wall which may be prior i njection sites. Hardware is seen in the right hip. Degenerative and post surgical changes are seen in the spine. The visualized inferior thorax is unremarkable. IMPRESSION: 1. No evidence of acute intraabdominal/pelvic abnormality. 2. Cholelithiasis. 3. Right adrenal adenoma. 4. Hyperplasia of the left adrenal gland. POS: EAA
[2020-04-09] MEDS: Mometasone 100 MCG/Formoterol 5 MCG 120 PUFF INHALER INH SCH (18:43)
--- NOTE | 2020-04-09 19:30 | CON ---
DATE OF CONSULTATION: 04/09/2020 REASON: UTI. 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 She also had atrial fibrillation. So I saw her with worsening dyspnea and felt that she did not have evidence to suggest COVID-19. 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 Since then, she has had an indwelling Garcia catheter because she cannot use her right lower extremity and she was given various antimicrobials recently which apparently did not help with the symptoms of dysuria that she was having. The catheter may have been obstructed and we replaced her catheter and then her Coumadin check showed a very high INR and she ended up in the hospital. She is currently in bed and has developed what she calls sciatica, which is actually a left flank pain, which is quite intense. She denies any headaches; no change in visual symptoms; no sore throat, odynophagia, or dysphagia. She has a very dry oral cavity. No dyspnea. No chest pain. No abdominal pain. The dysuria has improved. No bleeding. No vomiting. 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 PAST SURGICAL HISTORY: As above. Also, bladder suspension, oophorectomy, hernia repair, hysterectomy, appendectomy. SOCIAL HISTORY: Lives in [facility]. Quit smoking after 50 years of smoking a few years ago, used to work at [email or web address]. ALLERGIES: CODEINE. MEDICATIONS: Currently she is on; 1. Albuterol. 2. Xanax. 3. Lipitor. 4. Tessalon. 5. Lovenox. 6. Sublimaze. 7. Feosol. 8. Synthroid. 9. Claritin. 10. Meropenem. 11. Formoterol. 12. Seroquel. 13. Desyrel. FAMILY HISTORY: Noncontributory. PHYSICAL EXAMINATION: VITAL SIGNS: She has been afebrile since admission, BP 130/75, heart rate 72, respirations 18, and O2 saturation 99% on 2 L nasal cannula. SKIN: No areas of skin breakdown. Peripheral IV access. She has a Garcia catheter with clear urine drainage. No lymphadenopathy. HEENT: Ocular movements conjugate. Oral cavity appears somewhat dry but no lesions. NECK: No jugular vein distention. LUNGS: With fairly clear breath sounds. S1, S2, regular rate. ABDOMEN: Soft, not distended. EXTREMITIES: There is marked tenderness in the left flank area which is of new onset within the past 2-3 days. The lower extremities showed degenerative joint disease in the knee with very little mobility there because of pain. The right foot is well perfused and pulses are 1+ in dorsalis pedis. No edema. The left AKA site appears intact. NEUROLOGICAL: She is awake, oriented, follows commands, obviously depressed. LABORATORY DATA: Urinalysis with 21 to 50 wbc's. White cell count 15.7 down to 9.7 since admission, hemoglobin is at 11.7, platelets 155, and 76% neutrophils. Creatinine now started at 1.6, now is at 1.4. Liver profile was normal. Albumin 3.3, globulin 2.6. Urine culture with Acinetobacter baumannii from April 05 specimen. The specimen from March 04 showed E coli and Providencia. The Acinetobacter is susceptible to quinolones and resistant to Zosyn. ASSESSMENT: Chronic obstructive pulmonary disease, mitral valve replacement on chronic Coumadin, recent ischemic injury to the left lower extremity which resulted in amputation after an embolic phenomenon, chronic indwelling Garcia which has been placed for convenience sake and also because of mobility impairment. DISCUSSION: The symptoms may have been related to obstruction of the previous catheter, although she does have flank pain in the left side, which she diagnosis as sciatica, although I doubt it. We will go ahead and start with CT stone protocol, switch her to oral levofloxacin. If there is no evidence of pyelonephritis, probably we would not treat more than the just a few days and should be able to leave the hospital off antimicrobial therapy. The main task at hand is to diagnose the reason for the pain in the left flank area, if it is pyelonephritis or an alternate diagnosis, particularly in view of the prior history of cancer and lymphoma. The other issue is this frequent administration of antimicrobials for her urinary culture results and I am afraid that some of those episodes did not deserve antimicrobial therapy and if she continues in this pattern, it will necessarily lead to colonization by a highly resistant pathogen and she seems to really be going in that direction. Job ID: [id number]
[2020-04-09] MEDS: Atorvastatin Calcium 40 MG TAB PO SCH (20:45)
[2020-04-09] MEDS: Senokot S 8.6-50 MG TAB PO SCH (20:45)
[2020-04-09] MEDS: traZODone HCl 50 MG TAB PO SCH (20:53)
[2020-04-09] MEDS: Prazosin HCl 1 MG CAP PO SCH (20:53)
[2020-04-09] MEDS: Pramipexole Di-HCl 0.25 MG TAB PO SCH (20:53)
[2020-04-09] MEDS: ALPRAZolam 0.25 MG TAB PO PRN (20:57)
[2020-04-10] MEDS ORDERED: Levothyroxine 150 MCG TAB ONE ×2 (05:04→05:40)
[2020-04-10] MEDS ORDERED: Meropenem 500 MG VIAL ONE (05:40)
[2020-04-10] MEDS ORDERED: oxyCODONE/Acetaminophen 5 mg/325 mg Tablet ONE (05:40)
[2020-04-10] MEDS: Meropenem 500 MG in Sodium Chloride 0.9% 100 ML IVPB SCH ×3 (08:00→21:30)
[2020-04-10] MEDS: Levothyroxine 150 MCG TAB PO SCH (08:00)
[2020-04-10] MEDS ORDERED: Carvedilol 3.125 MG TAB ONE ×2 (08:57→09:00)
[2020-04-10] MEDS ORDERED: Calcium Carbonate 600 MG + Vit D TAB ONE ×2 (08:57→09:00)
[2020-04-10] MEDS ORDERED: Aspirin 81 mg Enteric Coated Tablet ONE ×2 (08:58→09:00)
[2020-04-10] MEDS ORDERED: Fish Oil 1,000 MG CAP ONE ×2 (08:59→09:00)
[2020-04-10] MEDS ORDERED: Ferrous Sulfate 325 MG TAB ONE ×2 (08:59→09:00)
[2020-04-10] MEDS: Carvedilol 6.25 MG TAB PO SCH ×2 (09:00→21:11)
[2020-04-10] MEDS: Enoxaparin Sodium 100 MG/ML SYRINGE SC SCH ×2 (09:00→21:13)
[2020-04-10] MEDS ORDERED: Benzonatate 100 MG CAP ONE ×3 (09:00→15:06)
[2020-04-10] MEDS: Aspirin 81 mg Enteric Coated Tablet PO SCH (09:00)
[2020-04-10] MEDS: Fish Oil 1,000 MG CAP PO SCH (09:00)
[2020-04-10] MEDS ORDERED: Enoxaparin Sodium 100 MG/ML SYRINGE ONE (09:00)
[2020-04-10] MEDS: Ferrous Sulfate 325 MG TAB PO SCH ×2 (09:00→21:12)
[2020-04-10] MEDS: Benzonatate 100 MG CAP PO SCH ×3 (09:00→21:11)
[2020-04-10] MEDS: Calcium Carbonate 600 MG + Vit D TAB PO SCH (09:00)
[2020-04-10] MEDS ORDERED: Ondansetron ODT 4 MG TAB ONE (09:05)
[2020-04-10] MEDS: Mometasone 200 MCG/Formoterol 5 MCG 120 PUFF INHALER INH SCH ×2 (09:30→21:09)
--- NOTE | 2020-04-10 12:14 | PRG ---
DATE OF SERVICE: 04/10/2020 SUBJECTIVE: Ms. Clemens has no chest pain or pressure. She is having pain from her sciatic nerve. OBJECTIVE: VITAL SIGNS: Blood pressure 113/60 yesterday. Today's vital signs have not yet been entered as there is a problem with [employer]. Pulse is 70. LUNGS: Clear. CARDIAC: Normal S1, normal S2. ABDOMEN: Soft, nontender. EXTREMITIES: There is no edema. LABORATORY DATA: The patient's INR yesterday was 1.9, has not been entered today. I cannot tell if it has actually been ordered based on [employer]. The nurse is also not sure. ASSESSMENT: Mechanical prosthetic valve with target INR of 2.5 to 3.5. PLAN: 1. The patient is on Coumadin. 2. Aspirin. 3. Enoxaparin. 4. Continue current medical regimen. Check INR tomorrow to see if the patient's INR is therapeutic prior to discontinuing Lovenox. Job ID: [id number]
[2020-04-10] MEDS ORDERED: Fleet Enema 133 ML BOT PR PRN (12:52)
[2020-04-10] MEDS ORDERED: Bisacodyl 10 MG SUPP PR PRN (12:52)
--- NOTE | 2020-04-10 13:42 | PDOC.HOSPP ---
- Subjective Encounter Date: 04/10/20 Encounter Time: 11:00 Subjective: F/u: severe back pain She reports constipation, has not even had ben of bowel movement. SHe is mostly bed bound due to severe back pain, but has improvement with percocet and finally got some sleep MRI unable to be done since nobody is available - Objective Vital Signs & Weight: Weight Weight 218 lb 9.59 oz I&O: 04/09/20 04/10/20 04/11/20 06:59 06:59 06:59 Intake Total 800 910 Output Total 2400 800 Balance -1600 110 Result Diagrams: 04/09/20 04:46 04/09/20 04:46 Hospitalist ROS - Medication Medications: Active Medications Generic Name Dose Route Start Last Admin Trade Name Freq PRN Reason Stop Dose Admin Acetaminophen 650 mg 04/05/20 18:09 04/07/20 04:57 Acetaminophen 325 Mg Tab PO 650 mg Q4H PRN Administration Headache/Fever Alprazolam 0.25 mg 04/05/20 18:12 04/09/20 20:57 Alprazolam 0.25 Mg Tab PO 0.25 mg QIDPRN PRN Administration Anxiety Aspirin 81 mg 04/07/20 09:00 04/09/20 09:58 Aspirin 81 Mg Enteric Coated Tablet PO 81 mg DAILY LISA Administration Atorvastatin Calcium 40 mg 04/05/20 21:00 04/09/20 20:45 Atorvastatin Calcium 40 Mg Tab PO 40 mg HS LISA Administration Benzonatate 100 mg 04/06/20 15:00 04/09/20 20:45 Benzonatate 100 Mg Cap PO 100 mg TID LISA Administration Calcium/Vitamin D 1 tab 04/07/20 09:00 04/09/20 09:58 Calcium Carbonate 600 Mg + Vit D Tab PO 1 tab DAILY LISA Administration Carvedilol 3.125 mg 04/06/20 21:00 04/09/20 20:44 Carvedilol 6.25 Mg Tab PO 3.125 mg BID LISA Administration Enoxaparin Sodium 100 mg 04/07/20 21:00 04/09/20 20:45 Enoxaparin Sodium 100 Mg/Ml Syringe SC 100 mg 0900,2100 LISA Administration Fentanyl 25 mcg 04/07/20 13:07 04/09/20 11:24 Fentanyl 100 Mcg/2 Ml Vial SLOW IVP 25 mcg Q4HR PRN Administration Pain Ferrous Sulfate 325 mg 04/06/20 21:00 04/09/20 20:44 Ferrous Sulfate 325 Mg Tab PO 325 mg BID LISA Administration Fish Oil 1,000 mg 04/07/20 09:00 04/09/20 09:58 Fish Oil 1,000 Mg Cap PO 1,000 mg DAILY LISA Administration Meropenem 500 mg/ Sodium 100 mls @ 200 mls/hr 04/08/20 14:00 04/09/20 21:05 Chloride IVPB 100 mls Q8HR LISA Administration Levothyroxine Sodium 150 mcg 04/07/20 06:00 04/09/20 05:52 Levothyroxine 150 Mcg Tab PO 150 mcg 0600 LISA Administration Mometasone Furoate/Formoterol Fumar 2 puff 04/06/20 18:30 04/09/20 18:43 Mometasone 200 Mcg/Formoterol 5 Mcg 120 Puff Inhaler INH 2 puff BID-RT LISA Administration Mometasone Furoate/Formoterol Fumar 1 puff 04/09/20 18:30 04/09/20 18:43 Mometasone 100 Mcg/Formoterol 5 Mcg 120 Puff Inhaler INH Not Given BID-RT LISA Oxycodone/Acetaminophen 1 tab 04/09/20 13:15 04/09/20 21:00 Oxycodone/Acetaminophen 5 Mg/325 Mg Tablet PO 1 tab Q4H PRN Administration Moderate to Severe Pain (6-10) Pantoprazole Sodium 40 mg 04/07/20 09:00 04/09/20 09:58 Pantoprazole 40 Mg Tab PO 40 mg DAILY LISA Administration Pramipexole Dihydrochloride 0.5 mg 04/06/20 21:00 04/09/20 20:53 Pramipexole Di-Hcl 0.25 Mg Tab PO 0.5 mg HS LISA Administration Prazosin HCl 1 mg 04/06/20 21:00 04/09/20 20:53 Prazosin Hcl 1 Mg Cap PO 1 mg HS LISA Administration Quetiapine Fumarate 300 mg 04/05/20 21:00 04/09/20 20:53 Quetiapine Fumarate 300 Mg Tab PO 300 mg HS LISA Administration Senna/Docusate Sodium 1 tab 04/06/20 21:00 04/09/20 20:45 Senokot S 8.6-50 Mg Tab PO 1 tab HS LISA Administration Sertraline HCl 25 mg 04/07/20 09:00 04/09/20 09:58 Sertraline Hcl 25 Mg Tab PO 25 mg DAILY LISA Administration Sodium Chloride 10 ml 04/08/20 09:00 04/09/20 20:45 Flush - Normal Saline 10 Ml Syringe IVF 10 ml Q12HR LISA Administration Trazodone HCl 50 mg 04/06/20 21:00 04/09/20 20:53 Trazodone Hcl 50 Mg Tab PO 50 mg HS LISA Administration Warfarin Sodium 5 mg 04/07/20 17:00 04/09/20 16:31 Warfarin Sodium 5 Mg Tab PO 5 mg 1700 LISA Administration Hospitalist Exam Vitals: Weight Weight 218 lb 9.59 oz General Appearance: NAD, awake alert General - other findings: morbidly obese Eye: PERRL, anicteric sclera ENT: normocephalic atraumatic, no oropharyngeal lesions Neck: no JVD Heart: RRR, no murmur, no gallops, no rubs Respiratory: CTAB, no wheezes, no rales, no ronchi Gastrointestinal: soft, non-tender, non-distended, normal bowel sounds Extremities: no cyanosis, no clubbing, no edema Skin: normal turgor, no lesions, no rashes Neurological: cranial nerve grossly intact, normal sensation to touch, no weakness Hosp A/P - Plan CT abdomen: no acute abnormalities This is an 79 year old female who presented with dysuria around stanley catheter, admitted for complicated UTI. 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 She has been receiving IV ceftriaxone which shows intermediate sensitivity. Switched to meropenem on 04/08 . ID consulted due to history of recurrent UTI and switched her to oral levaquin. CT abdomen showed no pyelonephritis Severe back pain - MRI lumbar spine pending. Will have to post pone til tomorrow since no staff - she has improvement with percocet Constipation - ordered suppository and fleet enema prn #Hyponatremia - sodium is 130, repeat labs pending #Hypokalemia - resolved #CHERIE on CKD #Solitary left kidney - creatinine improved to 1.4. Labs pending today #Chronic afib #Mechanical mitral valve placement #Chronic systolic heart failure - warfarin 5 mg started 04/07. INR today is pending S/p Left AKA - PT and OT are following
[2020-04-10] MEDS: Mometasone 100 MCG/Formoterol 5 MCG 120 PUFF INHALER INH SCH ×2 (15:14→20:07)
[2020-04-10] MEDS: oxyCODONE/Acetaminophen 5 mg/325 mg Tablet PO PRN ×2 (15:23→21:09)
[2020-04-10] MEDS: Warfarin Sodium 5 MG TAB PO SCH (17:59)
[2020-04-10 18:17] LABS: Anion Gap 16 mmol/L (10-20); BUN (Urea Nitrogen) 47 mg/dL (9.8-20.1); Calc. Creatinine Clearance 39 mL/min (70-130); Calcium 8.7 mg/dL (7.8-10.44); Carbon Dioxide 28 mmol/L (23-31); Chloride 92 mmol/L (98-107); Glucose 117 mg/dL (83-110); Potassium 3.9 mmol/L (3.5-5.1); Sodium 132 mmol/L (136-145)
[2020-04-10 18:53] LABS: #Eosinphils 0.3 thou/uL (0.0-0.7); #Lymphocytes 1.4 thou/uL (1.20-3.40); #Neutrophils 6.9 thou/uL (1.40-6.50); %Basophils 0.1 % (0.0-1.0); %Eosinophils 3.5 % (0.0-10.0); %Lymphocytes 14.7 % (21.0-51.0); %Neutrophils 71.8 % (42.0-75.0); Mean Corpuscular HGB CONC 32.7 g/dL (32.0-36.0); Mean Corpuscular Hemoglobin 29.5 pg (27.0-31.0); Mean Corpuscular Volume 90.3 fL (78.0-98.0); Mean Platelet Volume 9.5 fL (7.4-10.4); Platelet Count 159 thou/uL (130-400); RBC Distribution Width 17.5 % (11.5-14.5); Red Blood Cell (RBC) Count 3.74 mill/uL (4.20-5.40); White Blood Cell (WBC) Count 9.7 thou/uL (4.8-10.8)
[2020-04-10] MEDS ORDERED: Sodium Chloride 0.9% 1,000 ML IV SCH (19:30)
[2020-04-10] MEDS: Senokot S 8.6-50 MG TAB PO SCH (21:10)
[2020-04-10] MEDS: ALPRAZolam 0.25 MG TAB PO PRN (21:10)
[2020-04-10] MEDS: traZODone HCl 50 MG TAB PO SCH (21:11)
[2020-04-10] MEDS: Atorvastatin Calcium 40 MG TAB PO SCH (21:12)
[2020-04-10] MEDS: Pramipexole Di-HCl 0.25 MG TAB PO SCH (21:12)
[2020-04-10] MEDS: Prazosin HCl 1 MG CAP PO SCH (21:13)
[2020-04-11] MEDS: Levothyroxine 150 MCG TAB PO SCH (05:15)
[2020-04-11] MEDS: Meropenem 500 MG in Sodium Chloride 0.9% 100 ML IVPB SCH (05:15)
[2020-04-11] MEDS: oxyCODONE/Acetaminophen 5 mg/325 mg Tablet PO PRN ×4 (05:21→20:47)
[2020-04-11 05:25] LABS: INR-International Normal Ratio 2.8; Prothrombin Time 29.9 sec (12.0-14.7)
[2020-04-11] MEDS: Mometasone 200 MCG/Formoterol 5 MCG 120 PUFF INHALER INH SCH (07:32)
[2020-04-11] MEDS: Mometasone 100 MCG/Formoterol 5 MCG 120 PUFF INHALER INH SCH ×2 (07:48→22:54)
[2020-04-11] MEDS: Calcium Carbonate 600 MG + Vit D TAB PO SCH (08:06)
[2020-04-11] MEDS: Aspirin 81 mg Enteric Coated Tablet PO SCH (08:06)
[2020-04-11] MEDS: Benzonatate 100 MG CAP PO SCH ×3 (08:06→20:49)
[2020-04-11] MEDS: Carvedilol 6.25 MG TAB PO SCH ×2 (08:06→20:49)
[2020-04-11] MEDS: Fish Oil 1,000 MG CAP PO SCH (08:08)
[2020-04-11] MEDS: Ferrous Sulfate 325 MG TAB PO SCH ×2 (08:08→20:49)
[2020-04-11] MEDS: Enoxaparin Sodium 100 MG/ML SYRINGE SC SCH (08:08)
--- NOTE | 2020-04-11 10:14 | MRI ---
MRI Lumbar Spine WO Con HISTORY: Severe back pain radiating to both legs. COMPARISON: None. FINDINGS: The vertebral bodies are normal in height. Severe degenerative disc narrowing is seen from the L1-2 the L4-5 levels. There is approximately 5 to 6 mm of spondylolisthesis of L4 on L5. There is no significant periaortic adenopathy. Small T2 hyperintense area within the left kidney is most li derik a cyst. The right kidney is not identified. T12-L1: Unremarkable. L1-2: Degenerative facet changes are present at this level there is moderate left-sided foraminal kermit rowing. L2-3: Degenerative facet and ligamentous hypertrophic changes at this level and disc bulge is present . There is moderate left-sided foraminal stenosis. L3-4: Postop laminectomy changes seen at this level there is moderate right and mild left foraminal s tenosis. L4-5: Postop changes and spondylolisthesis are present at this level no significant canal stenosis. M ild to moderate bilateral foraminal narrowing. L5-S1: Degenerative facet changes are present at this level. No central canal stenosis. Mild right an d moderately severe left foraminal stenosis. IMPRESSION: Multi level areas of foraminal stenosis as described above.
[2020-04-11 11:42] LABS: Anion Gap 10 mmol/L (10-20); BUN (Urea Nitrogen) 44 mg/dL (9.8-20.1); Calc. Creatinine Clearance 42 mL/min (70-130); Carbon Dioxide 33 mmol/L (23-31); Chloride 92 mmol/L (98-107); Glucose 100 mg/dL (83-110); Potassium 4.3 mmol/L (3.5-5.1); Sodium 131 mmol/L (136-145)
--- NOTE | 2020-04-11 12:25 | PDOC.CPN ---
- Subjective Date: 04/11/20 Time: 12:23 Interval history: No new issues. - Review of Systems General: denies: fever/chills, weight/appetite/sleep changes, night sweats, fatigue Respiratory: denies: cough, congestion, shortness of breath, exercise intolerance Cardiovascular: denies: chest pain, palpitation, edema, paroxysmal nocturnal dyspnea, orthopnea Gastrointestinal: denies: nausea, vomiting, diarrhea, constipation, abd pain, GI bleeding Musculoskeletal: reports: pain. denies: tenderness, stiffness, swelling, arthritis/arthralgias Neurological: denies: numbness, syncope, seizure, weakness - Objective Allergies/Adverse Reactions: Allergies Allergy/AdvReac Type Severity Reaction Status Date / Time codeine Allergy Verified 04/05/20 23:33 Sulfa (Sulfonamide Allergy Verified 04/05/20 23:33 Antibiotics) Visit Medications: Current Medications Acetaminophen (Acetaminophen 325 Mg Tab) 650 mg PO Q4H PRN PRN Reason: Headache/Fever Last Admin: 04/07/20 04:57 Dose: 650 mg Documented by: Albuterol Sulfate (Albuterol Sulfate 1.25 Mg/3 Ml Neb) 1.25 mg INH Q6H PRN PRN Reason: SOB &/or Wheezing Alprazolam (Alprazolam 0.25 Mg Tab) 0.25 mg PO QIDPRN PRN PRN Reason: Anxiety Last Admin: 04/10/20 21:10 Dose: 0.25 mg Documented by: Aspirin (Aspirin 81 Mg Enteric Coated Tablet) 81 mg PO DAILY [facility] Last Admin: 04/11/20 08:06 Dose: 81 mg Documented by: Atorvastatin Calcium (Atorvastatin Calcium 40 Mg Tab) 40 mg PO HS [facility] Last Admin: 04/10/20 21:12 Dose: 40 mg Documented by: Benzonatate (Benzonatate 100 Mg Cap) 100 mg PO TID [facility] Last Admin: 04/11/20 08:06 Dose: 100 mg Documented by: Bisacodyl (Bisacodyl 10 Mg Supp) 10 mg [place] DAILYPRN PRN PRN Reason: Constipation Calcium/Vitamin D (Calcium Carbonate 600 Mg + Vit D Tab) 1 tab PO DAILY [facility] Last Admin: 04/11/20 08:06 Dose: 1 tab Documented by: Carvedilol (Carvedilol 6.25 Mg Tab) 3.125 mg PO BID [facility] Last Admin: 04/11/20 08:06 Dose: 3.125 mg Documented by: Enoxaparin Sodium (Enoxaparin Sodium 100 Mg/Ml Syringe) 100 mg SC 0900,2100 [facility] Last Admin: 04/11/20 08:08 Dose: 100 mg Documented by: Fentanyl (Fentanyl 100 Mcg/2 Ml Vial) 25 mcg SLOW IVP Q4HR PRN PRN Reason: Pain Last Admin: 04/09/20 11:24 Dose: 25 mcg Documented by: Ferrous Sulfate (Ferrous Sulfate 325 Mg Tab) 325 mg PO BID [facility] Last Admin: 04/11/20 08:08 Dose: 325 mg Documented by: Fish Oil (Fish Oil 1,000 Mg Cap) 1,000 mg PO DAILY [facility] Last Admin: 04/11/20 08:08 Dose: 1,000 mg Documented by: Sodium Chloride (Normal Saline 0.9%) 1,000 mls @ 50 mls/hr IV .Q20H [facility] Last Admin: 04/10/20 21:09 Dose: 1,000 mls Documented by: Levothyroxine Sodium (Levothyroxine 150 Mcg Tab) 150 mcg PO 0600 [facility] Last Admin: 04/11/20 05:15 Dose: 150 mcg Documented by: Loratadine (Loratadine 10 Mg Tab) 10 mg PO DAILYPRN PRN PRN Reason: Allergies Miscellaneous Medication (Electrolyte Replacement Protocol 1 Each) 1 each FS ASDIR [facility] Mometasone Furoate/Formoterol Fumar (Mometasone 100 Mcg/Formoterol 5 Mcg 120 Puff Inhaler) 1 puff INH BID-RT [facility] Last Admin: 04/11/20 07:48 Dose: 1 puff Documented by: Nitroglycerin (Nitroglycerin 0.4 Mg Tab (25 Tab Bottle)) 0.4 mg SL Q5MIN PRN PRN Reason: Chest Pain Ondansetron HCl (Ondansetron Odt 4 Mg Tab) 4 mg PO Q6H PRN PRN Reason: Nausea/Vomiting Oxycodone/Acetaminophen (Oxycodone/Acetaminophen 5 Mg/325 Mg Tablet) 1 tab PO Q4H PRN PRN Reason: Moderate to Severe Pain (6-10) Last Admin: 04/11/20 09:15 Dose: 1 tab Documented by: Pantoprazole Sodium (Pantoprazole 40 Mg Tab) 40 mg PO DAILY [facility] Last Admin: 04/11/20 08:08 Dose: 40 mg Documented by: Pramipexole Dihydrochloride (Pramipexole Di-Hcl 0.25 Mg Tab) 0.5 mg PO [facility] Last Admin: 04/10/20 21:12 Dose: 0.5 mg Documented by: Prazosin HCl (Prazosin Hcl 1 Mg Cap) 1 mg PO [facility] Last Admin: 04/10/20 21:13 Dose: 1 mg Documented by: Quetiapine Fumarate (Quetiapine Fumarate 300 Mg Tab) 300 mg PO [facility] Last Admin: 04/10/20 21:12 Dose: 300 mg Documented by: Senna/Docusate Sodium (Senokot S 8.6-50 Mg Tab) 2 tab PO BID PRN PRN Reason: Constipation Senna/Docusate Sodium (Senokot S 8.6-50 Mg Tab) 1 tab PO [facility] Last Admin: 04/10/20 21:10 Dose: 1 tab Documented by: Sertraline HCl (Sertraline Hcl 25 Mg Tab) 25 mg PO DAILY [facility] Last Admin: 04/11/20 08:08 Dose: 25 mg Documented by: Sodium Biphosphate/Sodium Phosphate (Fleet Enema 133 Ml Bot) 133 ml [place] DAILYPRN PRN PRN Reason: CONSTIPATION Sodium Chloride (Flush - Normal Saline 10 Ml Syringe) 10 ml IVF Q12HR [facility] Last Admin: 04/11/20 08:09 Dose: Not Given Documented by: Sodium Chloride (Flush - Normal Saline 10 Ml Syringe) 10 ml IVF PRN PRN PRN Reason: Saline Flush Trazodone HCl (Trazodone Hcl 50 Mg Tab) 50 mg PO [facility] Last Admin: 04/10/20 21:11 Dose: 50 mg Documented by: Warfarin Sodium (Warfarin Sodium 5 Mg Tab) 5 mg PO 1700 [facility] Last Admin: 04/10/20 17:59 Dose: 5 mg Documented by: Vital Signs & Weight: Vital Signs Temp Pulse Resp BP BP Pulse Ox 04/11/20 08:06 126/75 04/11/20 07:42 97.0 F L 76 16 126/75 95 Weight 218 lb 9.59 oz - Physical Exam General: alert & oriented x3 HEENT: mucus membranes moist Neck: supple neck Cardiac: regular rate and rhythm Lungs: normal breath sounds Neuro: grossly intact Abdomen: active bowel sounds Extremities: no edema Skin: clear Musculoskeletal: no pain - Labs Result Diagrams: 04/10/20 06:15 04/11/20 11:08 - Assessment/Plan Assessment/Plan: 1. Complicated UTI 2. Indwelling stanley catheter 3. Bladder spasms. 4. Supratherapeutic INR, currently at goal. 5. Mechanical mitral valve 6. COPD PLAN: - INR currently at goal of 2.5-3.5 - Stop lovenox. - Echo showed EF at 50-55%, mechanical mitral valve without obvious evidence of vegetations, AI.
[2020-04-11] MEDS ORDERED: Sodium Chloride 0.9% 1,000 ML IV SCH (14:15)
--- NOTE | 2020-04-11 15:51 | PRG ---
DATE OF SERVICE: 04/11/2020 SUBJECTIVE: Still having the sciatic pain, which she calls sciatic pain in the left side. She is coughing intermittently. She feels there is a little bit of secretions in her upper airways. She states that she has chronic dyspnea. She has a Garcia catheter as noted before. OBJECTIVE: VITAL SIGNS: The patient has been afebrile. BP 120/70, heart rate 76 she is saturating 95 on 2 L. GENERAL: She is awake, does not appear in distress. Coughing intermittently. LUNGS: With very few inspiratory crackles on the right side base, few areas with wheezing on the left. HEART: S1 and S2, regular rate without murmurs. ABDOMEN: Soft, moderately distended but not tender. No bladder distention. No ascites noted. LABORATORY DATA: INR is 2.8. WBC 9.7, hemoglobin 11, platelets 159. Blood cultures, no growth. Lumbar spine MRI with degenerative disease, but no infection. Abdomen and pelvis CT with no evidence of pyelonephritis or obstruction. Chest x-ray from the with no infiltrates, just chronic changes. ASSESSMENT AND DISCUSSION: Chronic obstructive pulmonary disease; mitral valve replacement, on chronic Coumadin; ischemic injury of left lower extremity, which resulted in amputation at the AKA level; indwelling Garcia catheter, which has been placed for convenience sake and also due to mobility impairment. So, now she has these changes in the urine. She does not have evidence of upper tract infection. The pain in the left flank is probably due to radiculopathy and I do not think she needs long- term treatment. She already received all the antimicrobial duration that she needs. It has already been discontinued anyway. The main issue here will be to solve the pain which she blames the sciatic nerve. She has been given injections by Farzana carney in the past, which seemed to have been successful for quite a few years. May consider referral to Pain Clinic here at [facility] upon discharge. Job ID: [id number] [facility]
[2020-04-11] MEDS: Warfarin Sodium 5 MG TAB PO SCH (17:27)
[2020-04-11] MEDS: Acetaminophen 325 MG TAB PO PRN (17:31)
[2020-04-11 20:31] LABS: #Eosinphils 0.4 thou/uL (0.0-0.7); #Lymphocytes 1.1 thou/uL (1.20-3.40); #Monocytes 0.7 thou/uL (0.11-0.59); #Neutrophils 6.4 thou/uL (1.40-6.50); %Basophils 0.4 % (0.0-1.0); %Eosinophils 4.8 % (0.0-10.0); %Monocytes 8.1 % (0.0-10.0); %Neutrophils 73.8 % (42.0-75.0); Hemoglobin 11.1 g/dL (12.0-16.0); Mean Corpuscular Hemoglobin 29.7 pg (27.0-31.0); Mean Platelet Volume 8.7 fL (7.4-10.4); Platelet Count 166 thou/uL (130-400); RBC Distribution Width 17.2 % (11.5-14.5); Red Blood Cell (RBC) Count 3.73 mill/uL (4.20-5.40); White Blood Cell (WBC) Count 8.7 thou/uL (4.8-10.8)
[2020-04-11] MEDS: Prazosin HCl 1 MG CAP PO SCH (20:47)
[2020-04-11] MEDS: ALPRAZolam 0.25 MG TAB PO PRN (20:48)
[2020-04-11] MEDS: Senokot S 8.6-50 MG TAB PO SCH (20:48)
[2020-04-11] MEDS: Pramipexole Di-HCl 0.25 MG TAB PO SCH (20:48)
[2020-04-11] MEDS: traZODone HCl 50 MG TAB PO SCH (20:48)
[2020-04-11] MEDS: Atorvastatin Calcium 40 MG TAB PO SCH (20:49)
[2020-04-11 20:50] LABS: Anion Gap 15 mmol/L (10-20); BUN (Urea Nitrogen) 43 mg/dL (9.8-20.1); Calc. Creatinine Clearance 42 mL/min (70-130); Calcium 8.9 mg/dL (7.8-10.44); Carbon Dioxide 27 mmol/L (23-31); Chloride 92 mmol/L (98-107); Glucose 122 mg/dL (83-110); Potassium 4.2 mmol/L (3.5-5.1); Sodium 130 mmol/L (136-145)
--- NOTE | 2020-04-11 20:50 | PDOC.EVN ---
Event Note - Event Note Event Note: Nurse notified that patient had large amount of hematuria. May need to hold anticoagulation for tomorrow - lovenox was discontinued
--- NOTE | 2020-04-11 20:54 | PDOC.HOSPP ---
- Subjective Encounter Date: 04/11/20 Encounter Time: 10:30 Subjective: Fu: sciatica The patient reports significant improvement in back pain with percocet Constipation - she reports she never received the suppository or the enema. She states she did not refuse this and simply told the nurse yesterday to wait until after eating. I encouraged her to try to take the medicines when nurses are available if possible. She apparently refused medicine again at noon per nursing staff - Objective Vital Signs & Weight: Vital Signs (12 hours) Temp Pulse Resp BP Pulse Ox 04/11/20 19:38 97.9 F 81 16 137/75 90 L Weight Weight 218 lb 9.59 oz I&O: 04/10/20 04/11/20 04/12/20 06:59 06:59 06:59 Intake Total 910 800 Output Total 800 Balance 110 800 Result Diagrams: 04/11/20 20:21 04/11/20 20:21 Hospitalist ROS - Review of Systems Constitutional: denies: fever, chills - Medication Medications: Active Medications Generic Name Dose Route Start Last Admin Trade Name Freq PRN Reason Stop Dose Admin Acetaminophen 650 mg 04/05/20 18:09 04/11/20 17:31 Acetaminophen 325 Mg Tab PO 650 mg Q4H PRN Administration Headache/Fever Alprazolam 0.25 mg 04/05/20 18:12 04/11/20 20:48 Alprazolam 0.25 Mg Tab PO 0.25 mg QIDPRN PRN Administration Anxiety Aspirin 81 mg 04/07/20 09:00 04/11/20 08:06 Aspirin 81 Mg Enteric Coated Tablet PO 81 mg DAILY [facility] Administration Atorvastatin Calcium 40 mg 04/05/20 21:00 04/11/20 20:49 Atorvastatin Calcium 40 Mg Tab PO 40 mg HS [facility] Administration Benzonatate 100 mg 04/06/20 15:00 04/11/20 20:49 Benzonatate 100 Mg Cap PO 100 mg TID [facility]ISA Administration Bisacodyl 10 mg 04/10/20 12:52 04/11/20 15:30 Bisacodyl 10 Mg Supp [place] 10 mg DAILYPRN PRN Administration Constipation Calcium/Vitamin D 1 tab 04/07/20 09:00 04/11/20 08:06 Calcium Carbonate 600 Mg + Vit D Tab PO 1 tab DAILY [facility] Administration Carvedilol 3.125 mg 04/06/20 21:00 04/11/20 20:49 Carvedilol 6.25 Mg Tab PO 3.125 mg BID [facility] Administration Fentanyl 25 mcg 04/07/20 13:07 04/09/20 11:24 Fentanyl 100 Mcg/2 Ml Vial SLOW IVP 25 mcg Q4HR PRN Administration Pain Ferrous Sulfate 325 mg 04/06/20 21:00 04/11/20 20:49 Ferrous Sulfate 325 Mg Tab PO 325 mg BID [facility] Administration Fish Oil 1,000 mg 04/07/20 09:00 04/11/20 08:08 Fish Oil 1,000 Mg Cap PO 1,000 mg DAILY [facility] Administration Sodium Chloride 1,000 mls @ 25 mls/hr 04/11/20 14:15 04/11/20 15:31 Normal Saline 0.9% IV Not Given .Q24H [facility] Levothyroxine Sodium 150 mcg 04/07/20 06:00 04/11/20 05:15 Levothyroxine 150 Mcg Tab PO 150 mcg 0600 [facility] Administration Mometasone Furoate/Formoterol Fumar 1 puff 04/09/20 18:30 04/11/20 07:48 Mometasone 100 Mcg/Formoterol 5 Mcg 120 Puff Inhaler INH 1 puff BID-RT [facility] Administration Oxycodone/Acetaminophen 1 tab 04/09/20 13:15 04/11/20 20:47 Oxycodone/Acetaminophen 5 Mg/325 Mg Tablet PO 1 tab Q4H PRN Administration Moderate to Severe Pain (6-10) Pantoprazole Sodium 40 mg 04/07/20 09:00 04/11/20 08:08 Pantoprazole 40 Mg Tab PO 40 mg DAILY [facility] Administration Pramipexole Dihydrochloride 0.5 mg 04/06/20 21:00 04/11/20 20:48 Pramipexole Di-Hcl 0.25 Mg Tab PO 0.5 mg HS [facility] Administration Prazosin HCl 1 mg 04/06/20 21:00 04/11/20 20:47 Prazosin Hcl 1 Mg Cap PO 1 mg HS [facility] Administration Quetiapine Fumarate 300 mg 04/05/20 21:00 04/11/20 20:48 Quetiapine Fumarate 300 Mg Tab PO 300 mg HS [facility] Administration Senna/Docusate Sodium 1 tab 04/06/20 21:00 04/11/20 20:48 Senokot S 8.6-50 Mg Tab PO Not Given HS [facility] Sertraline HCl 25 mg 04/07/20 09:00 04/11/20 08:08 Sertraline Hcl 25 Mg Tab PO 25 mg DAILY [facility] Administration Sodium Chloride 10 ml 04/08/20 09:00 04/11/20 20:49 Flush - Normal Saline 10 Ml Syringe IVF 10 ml Q12HR [facility] Administration Trazodone HCl 50 mg 04/06/20 21:00 04/11/20 20:48 Trazodone Hcl 50 Mg Tab PO 50 mg HS [facility]ISA Administration Hospitalist Exam Vitals: Vital Signs (12 hours) Temp Pulse Resp BP Pulse Ox 04/11/20 19:38 97.9 F 81 16 137/75 90 L Weight Weight 218 lb 9.59 oz General Appearance: NAD, awake alert Eye: PERRL, anicteric sclera ENT: normocephalic atraumatic, no oropharyngeal lesions Neck: supple, symmetric, no JVD Heart: RRR, no murmur, no gallops Respiratory: CTAB, no wheezes, no rales Gastrointestinal: soft, non-tender, non-distended Extremities: no cyanosis, no clubbing, no edema Neurological: cranial nerve grossly intact, normal sensation to touch, no weakness, no focal deficits Musculoskeletal: normal tone, normal strength, diffuse muscle atrophy Psychiatric: normal affect, normal behavior, A&O x 3 Hosp A/P - Plan CT abdomen: no acute abnormalities MRI L- spine: multilevel areas of foraminal stenosis This is an 79 year old female who presented with dysuria around stanley catheter, admitted for complicated UTI. 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 SHe received [address] abdomen showed no pyelonephritis. Dr Townsend consulted, does not think she needs long-term antibiotics - discontinued meropenem Severe Degenerative disc disease - most prominent at L1-L2 and L4-L5 on MRI L spine. No evidence of infection or fracture. Neurosurgery consulted, recommended outpatient follow up - continue percocet prn. Gabapentin makes her hallucinate, did not want lyrica Cough - chest X ray showed no pneumonia. Reduced IV fluids to 25 ml/hour and will likely discontinue if CHERIE resolves CHERIE - likely contrast nephropathy Solitary left kidney - creatinine had worsened to 1.[address] with contrast. Started IV fluids, creatinine improved to 1.62 - will reduce rate to 25/hour, repeat creatinine tomorrow and if creatinine at baseline will dc fluids Hematuria - INR 2.8 today. Lovenox discontinued. May need to hold coumadin tomorrow, repeat INR tomorrow #Chronic afib #Mechanical mitral valve placement #Chronic systolic heart failure - warfarin 5 mg started 04/07. INR is 2.8, received warfarin 5 mg. Lovenox discontinued by cardiology Constipation - ordered suppository and fleet enema prn . Refused miralax #Hyponatremia - sodium is 131, will monitor #Hypokalemia - resolved after stopping lasix S/p Left AKA - PT and OT are following
--- NOTE | 2020-04-11 21:30 | ULT ---
RENAL ULTRASOUND: Indications: Hematuria, back pain. 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 FINDINGS: Images of the right renal fossa reveals an area of hypoechogenicity which may correspond to adrenal g land. This is indeterminate by ultrasound and measures in the 2 cm range. When comparison is made to the recent CT of 04-09-2020, a right adrenal adenoma was identified which w ould correspond to this finding. The left kidney is partially obscured due to bowel gas. There is no evidence of hydronephrosis. There is evidence of cortical thinning. No renal mass. No abnormality in the left kidney is seen on the CT of 2 days ago. Urinary bladder is mildly distended with Garcia catheter. There is echogenicity around the Garcia nadir ter suggesting blood clots within the bladder. IMPRESSION: 1. Unremarkable left kidney. 2. Right adrenal adenoma identified as seen on recent CT. 3. Bladder poorly evaluated. Garcia catheter in place. Echogenicity in the bladder may represent blood clots. POS: AGW
[2020-04-12] MEDS: oxyCODONE/Acetaminophen 5 mg/325 mg Tablet PO PRN ×3 (05:53→20:32)
[2020-04-12] MEDS: Levothyroxine 150 MCG TAB PO SCH (05:53)
[2020-04-12] MEDS: Mometasone 100 MCG/Formoterol 5 MCG 120 PUFF INHALER INH SCH ×2 (06:44→18:40)
[2020-04-12 08:19] LABS: Hemoglobin 10.9 g/dL (12.0-16.0); Mean Corpuscular Hemoglobin 30.7 pg (27.0-31.0); Mean Corpuscular Volume 90.3 fL (78.0-98.0); Mean Platelet Volume 9.1 fL (7.4-10.4); Platelet Count 157 thou/uL (130-400); Red Blood Cell (RBC) Count 3.55 mill/uL (4.20-5.40); White Blood Cell (WBC) Count 12.9 thou/uL (4.8-10.8)
[2020-04-12 08:21] LABS: INR-International Normal Ratio 3.4; Prothrombin Time 34.7 sec (12.0-14.7)
[2020-04-12] MEDS: Aspirin 81 mg Enteric Coated Tablet PO SCH (08:28)
[2020-04-12 08:30] LABS: Anion Gap 13 mmol/L (10-20); BUN (Urea Nitrogen) 42 mg/dL (9.8-20.1); Calc. Creatinine Clearance 45 mL/min (70-130); Calcium 9.2 mg/dL (7.8-10.44); Carbon Dioxide 29 mmol/L (23-31); Chloride 95 mmol/L (98-107); Glucose 100 mg/dL (83-110); Potassium 4.4 mmol/L (3.5-5.1); Sodium 133 mmol/L (136-145)
[2020-04-12] MEDS: Carvedilol 6.25 MG TAB PO SCH ×3 (08:33→20:35)
[2020-04-12 08:34] LABS: ALT (SGPT) 25 U/L (8-55); AST (SGOT) 22 U/L (5-34); Albumin 2.8 g/dL (3.4-4.8); Alkaline Phosphatase 86 U/L (40-110); Bilirubin, Direct 0.2 mg/dL (0.1-0.3); Bilirubin, Total 0.4 mg/dL (0.2-1.2); Protein, Total 5.4 g/dL (5.8-8.1)
[2020-04-12] MEDS: Calcium Carbonate 600 MG + Vit D TAB PO SCH (08:34)
[2020-04-12] MEDS: Fish Oil 1,000 MG CAP PO SCH (08:34)
[2020-04-12] MEDS: Benzonatate 100 MG CAP PO SCH ×3 (08:34→20:33)
[2020-04-12] MEDS: Ferrous Sulfate 325 MG TAB PO SCH ×2 (08:35→20:34)
--- NOTE | 2020-04-12 12:34 | PDOC.CPN ---
- Subjective Date: 04/12/20 Time: 12:32 Interval history: She developed hematuria yesterday. Her INR has been therapeutic since yesterday. No angina. no SOB. neurologically intact at this time. - Review of Systems General: denies: fever/chills, weight/appetite/sleep changes, night sweats, fatigue Respiratory: denies: cough, congestion, shortness of breath, exercise intolerance Cardiovascular: denies: chest pain, palpitation, edema, paroxysmal nocturnal dyspnea, orthopnea Gastrointestinal: denies: nausea, vomiting, diarrhea, constipation, abd pain, GI bleeding Musculoskeletal: denies: pain, tenderness, stiffness, swelling, arthritis/arthralgias Neurological: denies: numbness, syncope, seizure, weakness - Objective Allergies/Adverse Reactions: Allergies Allergy/AdvReac Type Severity Reaction Status Date / Time codeine Allergy Verified 04/05/20 23:33 Sulfa (Sulfonamide Allergy Verified 04/05/20 23:33 Antibiotics) Visit Medications: Current Medications Acetaminophen (Acetaminophen 325 Mg Tab) 650 mg PO Q4H PRN PRN Reason: Headache/Fever Last Admin: 04/11/20 17:31 Dose: 650 mg Documented by: Albuterol Sulfate (Albuterol Sulfate 1.25 Mg/3 Ml Neb) 1.25 mg INH Q6H PRN PRN Reason: SOB &/or Wheezing Alprazolam (Alprazolam 0.25 Mg Tab) 0.25 mg PO QIDPRN PRN PRN Reason: Anxiety Last Admin: 04/11/20 20:48 Dose: 0.25 mg Documented by: Aspirin (Aspirin 81 Mg Enteric Coated Tablet) 81 mg PO DAILY [facility] Last Admin: 04/12/20 08:28 Dose: Not Given Documented by: Atorvastatin Calcium (Atorvastatin Calcium 40 Mg Tab) 40 mg PO HS [facility] Last Admin: 04/11/20 20:49 Dose: 40 mg Documented by: Benzonatate (Benzonatate 100 Mg Cap) 100 mg PO TID [facility] Last Admin: 04/12/20 08:34 Dose: 100 mg Documented by: Bisacodyl (Bisacodyl 10 Mg Supp) 10 mg [place] DAILYPRN PRN PRN Reason: Constipation Last Admin: 04/11/20 15:30 Dose: 10 mg Documented by: Calcium/Vitamin D (Calcium Carbonate 600 Mg + Vit D Tab) 1 tab PO DAILY [facility] Last Admin: 04/12/20 08:34 Dose: 1 tab Documented by: Carvedilol (Carvedilol 6.25 Mg Tab) 3.125 mg PO BID [facility] Last Admin: 04/12/20 08:33 Dose: Not Given Documented by: Fentanyl (Fentanyl 100 Mcg/2 Ml Vial) 25 mcg SLOW IVP Q4HR PRN PRN Reason: Pain Last Admin: 04/09/20 11:24 Dose: 25 mcg Documented by: Ferrous Sulfate (Ferrous Sulfate 325 Mg Tab) 325 mg PO BID [facility] Last Admin: 04/12/20 08:35 Dose: 325 mg Documented by: Fish Oil (Fish Oil 1,000 Mg Cap) 1,000 mg PO DAILY [facility] Last Admin: 04/12/20 08:34 Dose: 1,000 mg Documented by: Fluticasone Propionate (Fluticasone Propionate Nasal [place] 16 Gm Bottle) 0 gm NASAL DAILY [facility] Levothyroxine Sodium (Levothyroxine 150 Mcg Tab) 150 mcg PO 0600 [facility] Last Admin: 04/12/20 05:53 Dose: 150 mcg Documented by: Loratadine (Loratadine 10 Mg Tab) 10 mg PO DAILYPRN PRN PRN Reason: Allergies Miscellaneous Medication (Electrolyte Replacement Protocol 1 Each) 1 each FS ASDIR [facility] Mometasone Furoate/Formoterol Fumar (Mometasone 100 Mcg/Formoterol 5 Mcg 120 Puff Inhaler) 1 puff INH BID-RT [facility] Last Admin: 04/12/20 06:44 Dose: 1 puff Documented by: Nitroglycerin (Nitroglycerin 0.4 Mg Tab (25 Tab Bottle)) 0.4 mg SL Q5MIN PRN PRN Reason: Chest Pain Ondansetron HCl (Ondansetron Odt 4 Mg Tab) 4 mg PO Q6H PRN PRN Reason: Nausea/Vomiting Oxycodone/Acetaminophen (Oxycodone/Acetaminophen 5 Mg/325 Mg Tablet) 1 tab PO Q 4H PRN PRN Reason: Moderate to Severe Pain (6-10) Last Admin: 04/12/20 05:53 Dose: 1 tab Documented by: Pantoprazole Sodium (Pantoprazole 40 Mg Tab) 40 mg PO DAILY [facility] Last Admin: 04/12/20 08:35 Dose: 40 mg Documented by: Pramipexole Dihydrochloride (Pramipexole Di-Hcl 0.25 Mg Tab) 0.5 mg PO [facility] Last Admin: 04/11/20 20:48 Dose: 0.5 mg Documented by: Prazosin HCl (Prazosin Hcl 1 Mg Cap) 1 mg PO [facility] Last Admin: 04/11/20 20:47 Dose: 1 mg Documented by: Quetiapine Fumarate (Quetiapine Fumarate 300 Mg Tab) 300 mg PO [facility] Last Admin: 04/11/20 20:48 Dose: 300 mg Documented by: Senna/Docusate Sodium (Senokot S 8.6-50 Mg Tab) 2 tab PO BID PRN PRN Reason: Constipation Senna/Docusate Sodium (Senokot S 8.6-50 Mg Tab) 1 tab PO [facility] Last Admin: 04/11/20 20:48 Dose: Not Given Documented by: Sertraline HCl (Sertraline Hcl 25 Mg Tab) 25 mg PO DAILY [facility] Last Admin: 04/12/20 08:35 Dose: 25 mg Documented by: Sodium Biphosphate/Sodium Phosphate (Fleet Enema 133 Ml Bot) 133 ml [place] DAILYPRN PRN PRN Reason: CONSTIPATION Sodium Chloride (Flush - Normal Saline 10 Ml Syringe) 10 ml IVF Q12HR [facility] Last Admin: 04/12/20 08:35 Dose: Not Given Documented by: Sodium Chloride (Flush - Normal Saline 10 Ml Syringe) 10 ml IVF PRN PRN PRN Reason: Saline Flush Trazodone HCl (Trazodone Hcl 50 Mg Tab) 50 mg PO [facility] Last Admin: 04/11/20 20:48 Dose: 50 mg Documented by: Vital Signs & Weight: Vital Signs Temp Pulse Resp BP Pulse Ox 04/12/20 08:00 97.5 F L 79 18 99/64 96 04/12/20 04:31 90 L Weight 218 lb 9.59 oz - Physical Exam General: alert & oriented x3 HEENT: mucus membranes moist Neck: supple neck Cardiac: regular rate and rhythm Lungs: normal breath sounds Neuro: grossly intact Abdomen: active bowel sounds Extremities: no edema Skin: clear Musculoskeletal: no pain - Labs Result Diagrams: 04/12/20 07:49 04/12/20 07:49 - Assessment/Plan Assessment/Plan: 1. Complicated UTI 2. Indwelling stanley catheter 3. Bladder spasms. 4. Supratherapeutic INR, currently at goal. 5. Mechanical mitral valve 6. COPD 7. hematuria. PLAN: - INR currently at goal of 2.5-3.5 - Would continue coumadin at this point as bleeding is not life threatening and the risk of stopping anticoagulation is high for intracardiac thrombus. Hopefully the bleeding will stop. Continue daily INR's.
[2020-04-12] MEDS: Fluticasone Propionate Nasal Spray 16 gm Bottle NASAL SCH (14:07)
--- NOTE | 2020-04-12 15:27 | PDOC.HOSPP ---
- Subjective Encounter Date: 04/12/20 Encounter Time: 11:00 Subjective: F/u: hematuria, back pain Patient had another episode of hematuria this morning and had some last night as well. INR was 3.4 this morning. The patient still has significant back pain and can't move. I discussed with her about going to rehab, she states she does not want to go because she was in the [facility] for five months and the food was terrible. She has a managed care director at home from 8 to 4 , but she was unable to answ er how she would take care of herself at night Her cough has improved, fluids discontinued - Objective Vital Signs & Weight: Vital Signs (12 hours) Temp Pulse Resp BP Pulse Ox 04/12/20 08:00 97.5 F L 79 18 99/64 96 04/12/20 04:31 90 L Weight Weight 218 lb 9.59 oz I&O: 04/11/20 04/12/20 04/13/20 06:59 06:59 06:59 Intake Total 800 1000 Output Total 1400 Balance 800 -400 Result Diagrams: 04/12/20 07:49 04/12/20 07:49 Hospitalist ROS - Review of Systems Constitutional: denies: fever, chills - Medication Medications: Active Medications Generic Name Dose Route Start Last Admin Trade Name Freq PRN Reason Stop Dose Admin Acetaminophen 650 mg 04/05/20 18:09 04/11/20 17:31 Acetaminophen 325 Mg Tab PO 650 mg Q4H PRN Administration Headache/Fever Alprazolam 0.25 mg 04/05/20 18:12 04/11/20 20:48 Alprazolam 0.25 Mg Tab PO 0.25 mg QIDPRN PRN Administration Anxiety Aspirin 81 mg 04/07/20 09:00 04/12/20 08:28 Aspirin 81 Mg Enteric Coated Tablet PO Not Given DAILY LISA Atorvastatin Calcium 40 mg 04/05/20 21:00 04/11/20 20:49 Atorvastatin Calcium 40 Mg Tab PO 40 mg HS LISA Administration Benzonatate 100 mg 04/06/20 15:00 04/12/20 08:34 Benzonatate 100 Mg Cap PO 100 mg TID LISA Administration Bisacodyl 10 mg 04/10/20 12:52 04/11/20 15:30 Bisacodyl 10 Mg Supp [place] 10 mg DAILYPRN PRN Administration Constipation Calcium/Vitamin D 1 tab 04/07/20 09:00 04/12/20 08:34 Calcium Carbonate 600 Mg + Vit D Tab PO 1 tab DAILY LISA Administration Carvedilol 3.125 mg 04/06/20 21:00 04/12/20 08:33 Carvedilol 6.25 Mg Tab PO Not Given BID LISA Fentanyl 25 mcg 04/07/20 13:07 04/09/20 11:24 Fentanyl 100 Mcg/2 Ml Vial SLOW IVP 25 mcg Q4HR PRN Administration Pain Ferrous Sulfate 325 mg 04/06/20 21:00 04/12/20 08:35 Ferrous Sulfate 325 Mg Tab PO 325 mg BID LISA Administration Fish Oil 1,000 mg 04/07/20 09:00 04/12/20 08:34 Fish Oil 1,000 Mg Cap PO 1,000 mg DAILY LISA Administration Fluticasone Propionate 0 gm 04/12/20 09:00 04/12/20 14:07 Fluticasone Propionate Nasal [place] 16 Gm Bottle NASAL Not Given DAILY LISA Levothyroxine Sodium 150 mcg 04/07/20 06:00 04/12/20 05:53 Levothyroxine 150 Mcg Tab PO 150 mcg 0600 LISA Administration Mometasone Furoate/Formoterol Fumar 1 puff 04/09/20 18:30 04/12/20 06:44 Mometasone 100 Mcg/Formoterol 5 Mcg 120 Puff Inhaler INH 1 puff BID-RT LISA Administration Oxycodone/Acetaminophen 1 tab 04/09/20 13:15 04/12/20 05:53 Oxycodone/Acetaminophen 5 Mg/325 Mg Tablet PO 1 tab Q4H PRN Administration Moderate to Severe Pain (6-10) Pantoprazole Sodium 40 mg 04/07/20 09:00 04/12/20 08:35 Pantoprazole 40 Mg Tab PO 40 mg DAILY LISA Administration Pramipexole Dihydrochloride 0.5 mg 04/06/20 21:00 04/11/20 20:48 Pramipexole Di-Hcl 0.25 Mg Tab PO 0.5 mg HS LISA Administration Prazosin HCl 1 mg 04/06/20 21:00 04/11/20 20:47 Prazosin Hcl 1 Mg Cap PO 1 mg HS LISA Administration Quetiapine Fumarate 300 mg 04/05/20 21:00 04/11/20 20:48 Quetiapine Fumarate 300 Mg Tab PO 300 mg HS LISA Administration Senna/Docusate Sodium 1 tab 04/06/20 21:00 04/11/20 20:48 Senokot S 8.6-50 Mg Tab PO Not Given HS LISA Sertraline HCl 25 mg 04/07/20 09:00 04/12/20 08:35 Sertraline Hcl 25 Mg Tab PO 25 mg DAILY LISA Administration Sodium Chloride 10 ml 04/08/20 09:00 04/12/20 08:35 Flush - Normal Saline 10 Ml Syringe IVF Not Given Q12HR LISA Trazodone HCl 50 mg 04/06/20 21:00 04/11/20 20:48 Trazodone Hcl 50 Mg Tab PO 50 mg HS LISA Administration Hospitalist Exam Vitals: Vital Signs (12 hours) Temp Pulse Resp BP Pulse Ox 04/12/20 08:00 97.5 F L 79 18 99/64 96 04/12/20 04:31 90 L Weight Weight 218 lb 9.59 oz General Appearance: NAD, awake alert Eye: PERRL, anicteric sclera ENT: normocephalic atraumatic, no oropharyngeal lesions Neck: no JVD Heart: RRR, no murmur, no gallops, no rubs Respiratory: CTAB, no wheezes, no rales, no ronchi Gastrointestinal: soft, non-tender, non-distended. negative: normal bowel sounds Extremities: no cyanosis, no clubbing, no edema Skin: normal turgor, no lesions, no rashes Neurological: cranial nerve grossly intact, normal sensation to touch, no weakness, no focal deficits Musculoskeletal: normal tone, normal strength, no muscle wasting Psychiatric: normal affect, normal behavior, A&O x 3 Hosp A/P - Plan CT abdomen: no acute abnormalities MRI L- spine: multilevel areas of foraminal stenosis This is an 79 year old female who presented with dysuria around stanley catheter, admitted for complicated UTI. 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 SHe received [address] abdomen showed no pyelonephritis. Dr Townsend consulted, does not think she needs long-term antibiotics - discontinued meropenem Severe Degenerative disc disease - most prominent at L1-L2 and L4-L5 on MRI L spine. No evidence of infection or fracture. Neurosurgery consulted, recommended outpatient follow up - continue percocet prn. Gabapentin makes her hallucinate, did not want lyrica - case management consult for rehab placement Cough - chest X ray showed no pneumonia. Discontinued fluids CHERIE - likely contrast nephropathy Solitary left kidney - creatinine improved to 1.55, discontinue fluids Hematuria - INR 3.4 today. Will hold lovenox and coumadin #Chronic afib #Mechanical mitral valve placement #Chronic systolic heart failure - warfarin 5 mg started 04/07. INR is 3.4, will hold for today and resume tomorrow at lower dose 2.5 mg Constipation - ordered suppository and fleet enema prn . Refused miralax #Hyponatremia - sodium is 131, will monitor #Hypokalemia - resolved after stopping lasix S/p Left AKA - PT and OT are following Dispo: will place case management consult for rehab
[2020-04-12] MEDS: Pramipexole Di-HCl 0.25 MG TAB PO SCH ×2 (20:33→20:39)
[2020-04-12] MEDS: ALPRAZolam 0.25 MG TAB PO PRN (20:33)
[2020-04-12] MEDS: Prazosin HCl 1 MG CAP PO SCH (20:33)
[2020-04-12] MEDS: Atorvastatin Calcium 40 MG TAB PO SCH (20:33)
[2020-04-12] MEDS: traZODone HCl 50 MG TAB PO SCH (20:34)
[2020-04-12] MEDS: Senokot S 8.6-50 MG TAB PO SCH (20:34)
--- NOTE | 2020-04-12 21:02 | CON ---
DATE OF CONSULTATION: 04/12/2020 REASON FOR CONSULTATION: Gross hematuria. HISTORY OF PRESENT ILLNESS: Ms. Brianda Clemens is an 79-year-old female admitted to the hospital on 04/05/2020 with dysuria, voiding around her catheter, and bladder pain that was not responding to outpatient medical therapy. She was seen and evaluated in the emergency room. She had a urine culture performed at that time and has subsequently grown Acinetobacter and she has been treated with appropriate antibiotics as outlined by Dr. Jones. Last night, she developed gross hematuria. She does have a prior history of hematuria and underwent cystoscopy in November 2019 for evaluation demonstrating no evidence of bladder malignancy. 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 She has been Garcia catheter dependent since a recent left above-knee amputation for embolic reasons. The catheter was in place for incontinence and difficulty ambulating to the bathroom. She did not have urinary retention. She has had some infections since then. Since admission, she has also obtained upper urinary tract imaging that included CT scan, renal ultrasound. There is no evidence of hydronephrosis or stone in the left kidney. These were performed. She does have left-sided back pain of unclear etiology, although this is not a new symptom. There is no evidence of obstruction as the source of her complaints and they have worsened since appropriate treatment for her infection. PAST MEDICAL HISTORY: Mitral valve disease, status post mechanical mitral valve replacement; lymphoma, status post right nephrectomy and chemotherapy; atrial fibrillation; hyperlipidemia; and gangrene of the left lower extremity, status post AKA; COPD; obesity; long history of smoking. PAST SURGICAL HISTORY: Mitral valve replacement with mechanical valve in 2009, left AKA in September 2019, right laparoscopic nephrectomy in 2014, oophorectomy, hernia repair, hysterectomy, appendectomy, bladder suspension. SOCIAL HISTORY: She has a long history of smoking, but quit several years ago. She is currently residing at the [facility]. Denies alcohol use. ALLERGIES: CODEINE. CURRENT MEDICATIONS: Include: 1. Meropenem. 2. Claritin. 3. Synthroid. 4. Sublimaze. 5. Iron. 6. Lovenox. 7. Tessalon. 8. Lipitor. 9. Xanax. 10. Albuterol. 11. Seroquel. 12. Desyrel. FAMILY HISTORY: Noncontributory. PHYSICAL EXAMINATION: GENERAL: She is awake, alert. She is oriented x4. She is in no distress at this time. VITAL SIGNS: Temperature 97.5, blood pressure 99/64, pulse 79. ABDOMEN: Soft, nontender. No palpable masses. Liver and spleen are not palpable. No abdominal tenderness noted. No peritoneal signs. : Garcia catheter hand irrigated with several small clots were irrigated. The catheter cleared readily. IMAGING STUDIES: CT, no left renal lesions. No left hydronephrosis. Right kidney surgically absent. LABORATORY DATA: Creatinine 1.55. Microbiology on 04/05/2020; urine culture positive for Acinetobacter. IMPRESSION: Gross hematuria. This is most likely result of her anticoagulation in conjunction with probable urinary tract infection. She has recently completed evaluation necessary to rule out malignancy as a source of her hematuria, which has included upper urinary tract imaging, most recently by CT scan and ultrasound during this evaluation and also cystoscopy performed in November 2019, demonstrating no bladder lesions. Urinary tract infection again most likely catheter related. Dr. Jones is managing her antibiotic therapy. I have recommended a catheter removal replacement and was prepared to perform that today, but she requested to be done tomorrow. RECOMMENDATIONS: 1. Catheter removal replacement on 04/13/2020 at the patient's request. 2. Hand irrigate Garcia catheter as necessary. 3. No further urologic recommendations at this time. Job ID: [id number]
[2020-04-13 06:36] LABS: Hemoglobin 10.7 g/dL (12.0-16.0); Mean Corpuscular HGB CONC 32.9 g/dL (32.0-36.0); Mean Corpuscular Hemoglobin 29.5 pg (27.0-31.0); Mean Corpuscular Volume 89.7 fL (78.0-98.0); Mean Platelet Volume 8.6 fL (7.4-10.4); Platelet Count 159 thou/uL (130-400); RBC Distribution Width 17.2 % (11.5-14.5); Red Blood Cell (RBC) Count 3.62 mill/uL (4.20-5.40); White Blood Cell (WBC) Count 10.5 thou/uL (4.8-10.8)
[2020-04-13 06:39] LABS: INR-International Normal Ratio 3.9; Prothrombin Time 39.1 sec (12.0-14.7)
[2020-04-13] MEDS: Mometasone 100 MCG/Formoterol 5 MCG 120 PUFF INHALER INH SCH ×2 (07:22→18:50)
[2020-04-13] MEDS: Levothyroxine 150 MCG TAB PO SCH (07:37)
[2020-04-13] MEDS: Benzonatate 100 MG CAP PO SCH ×3 (09:50→22:50)
[2020-04-13] MEDS: Ferrous Sulfate 325 MG TAB PO SCH ×2 (09:50→22:51)
[2020-04-13] MEDS: Carvedilol 6.25 MG TAB PO SCH ×2 (09:50→22:51)
[2020-04-13] MEDS: Fish Oil 1,000 MG CAP PO SCH (09:50)
[2020-04-13] MEDS: Calcium Carbonate 600 MG + Vit D TAB PO SCH (09:50)
[2020-04-13] MEDS: Aspirin 81 mg Enteric Coated Tablet PO SCH (09:52)
[2020-04-13] MEDS: oxyCODONE/Acetaminophen 5 mg/325 mg Tablet PO PRN ×2 (10:10→19:28)
[2020-04-13] MEDS: ALPRAZolam 0.25 MG TAB PO PRN ×2 (10:11→19:28)
[2020-04-13] MEDS: Fluticasone Propionate Nasal Spray 16 gm Bottle NASAL SCH (12:22)
--- NOTE | 2020-04-13 15:29 | PDOC.CPN ---
- Subjective Date: 04/13/20 Time: 15:27 Interval history: Her hematuria has resolved. Her catheter was replaced today. She has no new issues or complaints. - Review of Systems General: denies: fever/chills, weight/appetite/sleep changes, night sweats, fati teresa Respiratory: denies: cough, congestion, shortness of breath, exercise i ntolerance Cardiovascular: denies: chest pain, palpitation, edema, paroxysmal nocturnal dyspnea, orthopnea Gastrointestinal: denies: nausea, vomiting, diarrhea, constipation, abd pain, GI bleeding Musculoskeletal: denies: pain, tenderness, stiffness, swelling, arthritis/arthralgias Neurological: denies: numbness, syncope, seizure, weakness - Objective Allergies/Adverse Reactions: Allergies Allergy/AdvReac Type Severity Reaction Status Date / Time codeine Allergy Verified 04/05/20 23:33 Sulfa (Sulfonamide Allergy Verified 04/05/20 23:33 Antibiotics) Visit Medications: Current Medications Acetaminophen (Acetaminophen 325 Mg Tab) 650 mg PO Q4H PRN PRN Reason: Headache/Fever Last Admin: 04/11/20 17:31 Dose: 650 mg Documented by: Albuterol Sulfate (Albuterol Sulfate 1.25 Mg/3 Ml Neb) 1.25 mg INH Q6H PRN PRN Reason: SOB &/or Wheezing Alprazolam (Alprazolam 0.25 Mg Tab) 0.25 mg PO QIDPRN PRN PRN Reason: Anxiety Last Admin: 04/13/20 10:11 Dose: 0.25 mg Documented by: Aspirin (Aspirin 81 Mg Enteric Coated Tablet) 81 mg PO DAILY [facility] Last Admin: 04/13/20 09:52 Dose: Not Given Documented by: Atorvastatin Calcium (Atorvastatin Calcium 40 Mg Tab) 40 mg PO HS [facility] Last Admin: 04/12/20 20:33 Dose: 40 mg Documented by: Benzonatate (Benzonatate 100 Mg Cap) 100 mg PO TID [facility] Last Admin: 04/13/20 09:50 Dose: 100 mg Documented by: Bisacodyl (Bisacodyl 10 Mg Supp) 10 mg HI DAILYPRN PRN PRN Reason: Constipation Last Admin: 04/11/20 15:30 Dose: 10 mg Documented by: Calcium/Vitamin D (Calcium Carbonate 600 Mg + Vit D Tab) 1 tab PO DAILY [facility] Last Admin: 04/13/20 09:50 Dose: 1 tab Documented by: Carvedilol (Carvedilol 6.25 Mg Tab) 3.125 mg PO BID [facility] Last Admin: 04/13/20 09:50 Dose: 3.125 mg Documented by: Fentanyl (Fentanyl 100 Mcg/2 Ml Vial) 25 mcg SLOW IVP Q4HR PRN PRN Reason: Pain Last Admin: 04/09/20 11:24 Dose: 25 mcg Documented by: Ferrous Sulfate (Ferrous Sulfate 325 Mg Tab) 325 mg PO BID [facility] Last Admin: 04/13/20 09:50 Dose: 325 mg Documented by: Fish Oil (Fish Oil 1,000 Mg Cap) 1,000 mg PO DAILY [facility] Last Admin: 04/13/20 09:50 Dose: 1,000 mg Documented by: Fluticasone Propionate (Fluticasone Propionate Nasal [place] 16 Gm Bottle) 0 gm NASAL DAILY [facility] Last Admin: 04/13/20 12:22 Dose: 2 sprays Documented by: Levothyroxine Sodium (Levothyroxine 150 Mcg Tab) 150 mcg PO 0600 [facility] Last Admin: 04/13/20 07:37 Dose: 150 mcg Documented by: Loratadine (Loratadine 10 Mg Tab) 10 mg PO DAILYPRN PRN PRN Reason: Allergies Miscellaneous Medication (Electrolyte Replacement Protocol 1 Each) 1 each FS ASDIR [facility] Mometasone Furoate/Formoterol Fumar (Mometasone 100 Mcg/Formoterol 5 Mcg 120 Puff Inhaler) 1 puff INH BID-RT [facility] Last Admin: 04/13/20 07:22 Dose: 1 puff Documented by: Nitroglycerin (Nitroglycerin 0.4 Mg Tab (25 Tab Bottle)) 0.4 mg SL Q5MIN PRN PRN Reason: Chest Pain Ondansetron HCl (Ondansetron Odt 4 Mg Tab) 4 mg PO Q6H PRN PRN Reason: Nausea/Vomiting Oxycodone/Acetaminophen (Oxycodone/Acetaminophen 5 Mg/325 Mg Tablet) 1 tab PO Q4H PRN PRN Reason: Moderate to Severe Pain (6-10) Last Admin: 04/13/20 10:10 Dose: 1 tab Documented by: Pantoprazole Sodium (Pantoprazole 40 Mg Tab) 40 mg PO DAILY [facility] Last Admin: 04/13/20 09:50 Dose: 40 mg Documented by: Pramipexole Dihydrochloride (Pramipexole Di-Hcl 0.25 Mg Tab) 0.5 mg PO [facility] Last Admin: 04/12/20 20:39 Dose: Not Given Documented by: Prazosin HCl (Prazosin Hcl 1 Mg Cap) 1 mg PO [facility] Last Admin: 04/12/20 20:33 Dose: 1 mg Documented by: Quetiapine Fumarate (Quetiapine Fumarate 300 Mg Tab) 300 mg PO [facility] Last Admin: 04/12/20 20:33 Dose: 300 mg Documented by: Senna/Docusate Sodium (Senokot S 8.6-50 Mg Tab) 2 tab PO BID PRN PRN Reason: Constipation Senna/Docusate Sodium (Senokot S 8.6-50 Mg Tab) 1 tab PO [facility] Last Admin: 04/12/20 20:34 Dose: Not Given Documented by: Sertraline HCl (Sertraline Hcl 25 Mg Tab) 25 mg PO DAILY [facility] Last Admin: 04/13/20 09:50 Dose: 25 mg Documented by: Sodium Biphosphate/Sodium Phosphate (Fleet Enema 133 Ml Bot) 133 ml HI DAILYPRN PRN PRN Reason: CONSTIPATION Sodium Chloride (Flush - Normal Saline 10 Ml Syringe) 10 ml IVF Q12HR [facility] Last Admin: 04/13/20 09:53 Dose: 10 ml Documented by: Sodium Chloride (Flush - Normal Saline 10 Ml Syringe) 10 ml IVF PRN PRN PRN Reason: Saline Flush Trazodone HCl (Trazodone Hcl 50 Mg Tab) 50 mg PO [facility] Last Admin: 04/12/20 20:34 Dose: 50 mg Documented by: Vital Signs & Weight: Vital Signs Temp Pulse Resp BP BP Pulse Ox 04/13/20 09:50 109/70 04/13/20 08:00 95 04/13/20 07:35 98.1 F 86 20 118/73 95 Admit Weight 218 lb 9.6 oz Weight 218 lb 9.59 oz - Physical Exam General: alert & oriented x3 HEENT: mucus membranes moist Neck: supple neck Cardiac: regular rate and rhythm Lungs: clear to auscultation Neuro: grossly intact Abdomen: active bowel sounds Extremities: no edema Skin: clear Musculoskeletal: no pain - Labs Result Diagrams: 04/13/20 05:44 04/13/20 05:44 - Assessment/Plan Assessment/Plan: 1. Complicated UTI 2. Indwelling stanley catheter 3. Bladder spasms. 4. Supratherapeutic INR, currently at goal. 5. Mechanical mitral valve 6. COPD 7. Hematuria, resolved. PLAN: - INR supratherapeutic. Pharmacy following. - CV stable.
--- NOTE | 2020-04-13 16:37 | PDOC.HOSPP ---
- Subjective Encounter Date: 04/13/20 Encounter Time: 07:00 Subjective: F/u: back pain She still has back pain controlled with percocet. She was able to sit more up without being in back pain. The patient still is unable to get out of bed without assistance. Requested PT help with this. She denies significant cough or chest congestion Hematuria resolved. Catheter was replaced today . INR is up to 3.9 She states she is sick of being sick, and sick of being in the hospital and wants to go home, but understands that she can't do much on her own and would likely need 24 hour care - Objective Vital Signs & Weight: Vital Signs (12 hours) Temp Pulse Resp BP BP Pulse Ox 04/13/20 09:50 109/70 04/13/20 08:00 95 04/13/20 07:35 98.1 F 86 20 118/73 95 Weight Admit Weight 218 lb 9.6 oz Weight 218 lb 9.59 oz I&O: 04/12/20 04/13/20 04/14/20 06:59 06:59 06:59 Intake Total 1000 640 Output Total 1400 Balance -400 640 Result Diagrams: 04/13/20 05:44 04/13/20 05:44 Hospitalist ROS - Review of Systems Constitutional: denies: fever, chills - Medication Medications: Active Medications Generic Name Dose Route Start Last Admin Trade Name Freq PRN Reason Stop Dose Admin Acetaminophen 650 mg 04/05/20 18:09 04/11/20 17:31 Acetaminophen 325 Mg Tab PO 650 mg Q4H PRN Administration Headache/Fever Alprazolam 0.25 mg 04/05/20 18:12 04/13/20 10:11 Alprazolam 0.25 Mg Tab PO 0.25 mg QIDPRN PRN Administration Anxiety Aspirin 81 mg 04/07/20 09:00 04/13/20 09:52 Aspirin 81 Mg Enteric Coated Tablet PO Not Given DAILY LISA Atorvastatin Calcium 40 mg 04/05/20 21:00 04/12/20 20:33 Atorvastatin Calcium 40 Mg Tab PO 40 mg HS LISA Administration Benzonatate 100 mg 04/06/20 15:00 04/13/20 15:36 Benzonatate 100 Mg Cap PO 100 mg TID LISA Administration Bisacodyl 10 mg 04/10/20 12:52 04/11/20 15:30 Bisacodyl 10 Mg Supp [place] 10 mg DAILYPRN PRN Administration Constipation Calcium/Vitamin D 1 tab 04/07/20 09:00 04/13/20 09:50 Calcium Carbonate 600 Mg + Vit D Tab PO 1 tab DAILY LISA Administration Carvedilol 3.125 mg 04/06/20 21:00 04/13/20 09:50 Carvedilol 6.25 Mg Tab PO 3.125 mg BID LISA Administration Fentanyl 25 mcg 04/07/20 13:07 04/09/20 11:24 Fentanyl 100 Mcg/2 Ml Vial SLOW IVP 25 mcg Q4HR PRN Administration Pain Ferrous Sulfate 325 mg 04/06/20 21:00 04/13/20 09:50 Ferrous Sulfate 325 Mg Tab PO 325 mg BID LISA Administration Fish Oil 1,000 mg 04/07/20 09:00 04/13/20 09:50 Fish Oil 1,000 Mg Cap PO 1,000 mg DAILY LISA Administration Fluticasone Propionate 0 gm 04/12/20 09:00 04/13/20 12:22 Fluticasone Propionate Nasal [place] 16 Gm Bottle NASAL 2 sprays DAILY LISA Administration Levothyroxine Sodium 150 mcg 04/07/20 06:00 04/13/20 07:37 Levothyroxine 150 Mcg Tab PO 150 mcg 0600 LISA Administration Mometasone Furoate/Formoterol Fumar 1 puff 04/09/20 18:30 04/13/20 07:22 Mometasone 100 Mcg/Formoterol 5 Mcg 120 Puff Inhaler INH 1 puff BID-RT LISA Administration Oxycodone/Acetaminophen 1 tab 04/09/20 13:15 04/13/20 10:10 Oxycodone/Acetaminophen 5 Mg/325 Mg Tablet PO 1 tab Q4H PRN Administration Moderate to Severe Pain (6-10) Pantoprazole Sodium 40 mg 04/07/20 09:00 04/13/20 09:50 Pantoprazole 40 Mg Tab PO 40 mg DAILY LISA Administration Pramipexole Dihydrochloride 0.5 mg 04/06/20 21:00 04/12/20 20:39 Pramipexole Di-Hcl 0.25 Mg Tab PO Not Given HS LISA Prazosin HCl 1 mg 04/06/20 21:00 04/12/20 20:33 Prazosin Hcl 1 Mg Cap PO 1 mg HS LISA Administration Quetiapine Fumarate 300 mg 04/05/20 21:00 04/12/20 20:33 Quetiapine Fumarate 300 Mg Tab PO 300 mg HS LISA Administration Senna/Docusate Sodium 1 tab 04/06/20 21:00 04/12/20 20:34 Senokot S 8.6-50 Mg Tab PO Not Given HS LISA Sertraline HCl 25 mg 04/07/20 09:00 04/13/20 09:50 Sertraline Hcl 25 Mg Tab PO 25 mg DAILY LISA Administration Sodium Chloride 10 ml 04/08/20 09:00 04/13/20 09:53 Flush - Normal Saline 10 Ml Syringe IVF 10 ml Q12HR LISA Administration Trazodone HCl 50 mg 04/06/20 21:00 04/12/20 20:34 Trazodone Hcl 50 Mg Tab PO 50 mg HS LISA Administration Hospitalist Exam Vitals: Vital Signs (12 hours) Temp Pulse Resp BP BP Pulse Ox 04/13/20 09:50 109/70 04/13/20 08:00 95 04/13/20 07:35 98.1 F 86 20 118/73 95 Weight Admit Weight 218 lb 9.6 oz Weight 218 lb 9.59 oz General Appearance: NAD, awake alert General - other findings: obese Eye: PERRL, anicteric sclera ENT: normocephalic atraumatic, no oropharyngeal lesions Neck: no JVD Heart: RRR, no murmur, no gallops, no rubs Respiratory: CTAB, no wheezes, no rales, no ronchi Gastrointestinal: soft, non-tender, non-distended, normal bowel sounds Extremities: no cyanosis, no clubbing, no edema Skin: normal turgor, no lesions, no rashes Neurological: cranial nerve grossly intact, normal sensation to touch, no weakness Musculoskeletal: normal tone, no muscle wasting Psychiatric: normal affect, normal behavior, A&O x 3 Hosp A/P - Plan CT abdomen: no acute abnormalities MRI L- spine: multilevel areas of foraminal stenosis This is an 79 year old female who presented with dysuria around stanley catheter, admitted for complicated UTI. 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 SHe received [address] ab domen showed no pyelonephritis. Dr Townsend consulted, does not think she needs long-term antibiotics - discontinued meropenem after three days Severe Degenerative disc disease - most prominent at L1-L2 and L4-L5 on MRI L spine. No evidence of infection or fracture. Neurosurgery consulted, recommended outpatient follow up - continue percocet prn. Patient refuses rehab currently Cough - chest X ray showed no pneumonia. Discontinued fluids CHERIE - likely contrast nephropathy Solitary left kidney - creatinine improved to 1.55, discontinue fluids Hematuria - resolved. Urology consulted and replaced her catheter #Chronic afib #Mechanical mitral valve placement #Chronic systolic heart failure - warfarin 5 mg started 04/07. INR is 3.9, hold for today and recheck tomorrow Constipation - ordered suppository and fleet enema prn . Refused miralax #Hyponatremia - sodium is 131, will monitor #Hypokalemia - resolved after stopping lasix S/p Left AKA - PT and OT are following Dispo: will place case management consult for rehab
[2020-04-13] MEDS ORDERED: Warfarin Sodium 2.5 MG TAB PO SCH (17:00)
[2020-04-13] MEDS: Prazosin HCl 1 MG CAP PO SCH (22:50)
[2020-04-13] MEDS: Pramipexole Di-HCl 0.25 MG TAB PO SCH (22:50)
[2020-04-13] MEDS: traZODone HCl 50 MG TAB PO SCH (22:52)
[2020-04-13] MEDS: Atorvastatin Calcium 40 MG TAB PO SCH (22:52)
[2020-04-13] MEDS: Senokot S 8.6-50 MG TAB PO SCH (22:52)
[2020-04-14 06:16] LABS: INR-International Normal Ratio 3.5; Prothrombin Time 35.9 sec (12.0-14.7)
[2020-04-14] MEDS: Mometasone 100 MCG/Formoterol 5 MCG 120 PUFF INHALER INH SCH ×2 (07:17→18:45)
[2020-04-14] MEDS: Calcium Carbonate 600 MG + Vit D TAB PO SCH (08:37)
[2020-04-14] MEDS: Carvedilol 6.25 MG TAB PO SCH ×2 (08:37→22:36)
[2020-04-14] MEDS: Aspirin 81 mg Enteric Coated Tablet PO SCH (08:37)
[2020-04-14] MEDS: Levothyroxine 150 MCG TAB PO SCH (08:37)
[2020-04-14] MEDS: Benzonatate 100 MG CAP PO SCH ×3 (08:37→22:35)
[2020-04-14] MEDS: Fish Oil 1,000 MG CAP PO SCH ×2 (08:38→08:50)
[2020-04-14] MEDS: Ferrous Sulfate 325 MG TAB PO SCH ×2 (08:39→22:37)
[2020-04-14] MEDS: Fluticasone Propionate Nasal Spray 16 gm Bottle NASAL SCH (08:40)
[2020-04-14 09:19] LABS: Hemoglobin 10.2 g/dL (12.0-16.0); Mean Corpuscular HGB CONC 33.1 g/dL (32.0-36.0); Mean Corpuscular Hemoglobin 29.4 pg (27.0-31.0); Mean Platelet Volume 8.1 fL (7.4-10.4); Platelet Count 174 thou/uL (130-400); RBC Distribution Width 16.9 % (11.5-14.5); Red Blood Cell (RBC) Count 3.48 mill/uL (4.20-5.40); White Blood Cell (WBC) Count 9.9 thou/uL (4.8-10.8)
[2020-04-14 09:39] LABS: Anion Gap 14 mmol/L (10-20); BUN (Urea Nitrogen) 38 mg/dL (9.8-20.1); Calc. Creatinine Clearance 46 mL/min (70-130); Calcium 8.7 mg/dL (7.8-10.44); Carbon Dioxide 28 mmol/L (23-31); Chloride 92 mmol/L (98-107); Glucose 118 mg/dL (83-110); Potassium 4.1 mmol/L (3.5-5.1); Sodium 130 mmol/L (136-145)
[2020-04-14] MEDS: oxyCODONE/Acetaminophen 5 mg/325 mg Tablet PO PRN ×2 (13:00→22:37)
--- NOTE | 2020-04-14 15:03 | PDOC.CPN ---
- Subjective Date: 04/14/20 Time: 15:00 Interval history: She feels tired. - Review of Systems General: reports: fatigue. denies: fever/chills, weight/appetite/sleep changes, night sweats Respiratory: denies: cough, congestion, shortness of breath, exercise intolerance Cardiovascular: denies: chest pain, palpitation, edema, paroxysmal nocturnal dyspnea, orthopnea Gastrointestinal: denies: nausea, vomiting, diarrhea, constipation, abd pain, GI bleeding Musculoskeletal: denies: pain, tenderness, stiffness, swelling, arthritis/arthralgias Neurological: denies: numbness, syncope, seizure, weakness - Objective Allergies/Adverse Reactions: Allergies Allergy/AdvReac Type Severity Reaction Status Date / Time codeine Allergy Verified 04/05/20 23:33 Sulfa (Sulfonamide Allergy Verified 04/05/20 23:33 Antibiotics) Visit Medications: Current Medications Acetaminophen (Acetaminophen 325 Mg Tab) 650 mg PO Q4H PRN PRN Reason: Headache/Fever Last Admin: 04/11/20 17:31 Dose: 650 mg Documented by: Albuterol Sulfate (Albuterol Sulfate 1.25 Mg/3 Ml Neb) 1.25 mg INH Q6H PRN PRN Reason: SOB &/or Wheezing Alprazolam (Alprazolam 0.25 Mg Tab) 0.25 mg PO QIDPRN PRN PRN Reason: Anxiety Last Admin: 04/13/20 19:28 Dose: 0.25 mg Documented by: Aspirin (Aspirin 81 Mg Enteric Coated Tablet) 81 mg PO DAILY [facility] Last Admin: 04/14/20 08:37 Dose: 81 mg Documented by: Atorvastatin Calcium (Atorvastatin Calcium 40 Mg Tab) 40 mg PO HS [facility] Last Admin: 04/13/20 22:52 Dose: 40 mg Documented by: Benzonatate (Benzonatate 100 Mg Cap) 100 mg PO TID [facility] Last Admin: 04/14/20 14:46 Dose: 100 mg Documented by: Bisacodyl (Bisacodyl 10 Mg Supp) 10 mg ND DAILYPRN PRN PRN Reason: Constipation Last Admin: 04/11/20 15:30 Dose: 10 mg Documented by: Calcium/Vitamin D (Calcium Carbonate 600 Mg + Vit D Tab) 1 tab PO DAILY [facility] Last Admin: 04/14/20 08:37 Dose: 1 tab Documented by: Carvedilol (Carvedilol 6.25 Mg Tab) 3.125 mg PO BID [facility] Last Admin: 04/14/20 08:37 Dose: 3.125 mg Documented by: Fentanyl (Fentanyl 100 Mcg/2 Ml Vial) 25 mcg SLOW IVP Q4HR PRN PRN Reason: Pain Last Admin: 04/09/20 11:24 Dose: 25 mcg Documented by: Ferrous Sulfate (Ferrous Sulfate 325 Mg Tab) 325 mg PO BID [facility] Last Admin: 04/14/20 08:39 Dose: 325 mg Documented by: Fish Oil (Fish Oil 1,000 Mg Cap) 1,000 mg PO DAILY [facility] Last Admin: 04/14/20 08:50 Dose: 1,000 mg Documented by: Fluticasone Propionate (Fluticasone Propionate Nasal [place] 16 Gm Bottle) 0 gm NASAL DAILY [facility] Last Admin: 04/14/20 08:40 Dose: 2 sprays Documented by: Levothyroxine Sodium (Levothyroxine 150 Mcg Tab) 150 mcg PO 0600 [facility] Last Admin: 04/14/20 08:37 Dose: 150 mcg Documented by: Loratadine (Loratadine 10 Mg Tab) 10 mg PO DAILYPRN PRN PRN Reason: Allergies Miscellaneous Medication (Electrolyte Replacement Protocol 1 Each) 1 each FS ASDIR [facility] Mometasone Furoate/Formoterol Fumar (Mometasone 100 Mcg/Formoterol 5 Mcg 120 Puff Inhaler) 1 puff INH BID-RT [facility] Last Admin: 04/14/20 07:17 Dose: 1 puff Documented by: Nitroglycerin (Nitroglycerin 0.4 Mg Tab (25 Tab Bottle)) 0.4 mg SL Q5MIN PRN PRN Reason: Chest Pain Ondansetron HCl (Ondansetron Odt 4 Mg Tab) 4 mg PO Q6H PRN PRN Reason: Nausea/Vomiting Oxycodone/Acetaminophen (Oxycodone/Acetaminophen 5 Mg/325 Mg Tablet) 1 tab PO Q4H PRN PRN Reason: Moderate to Severe Pain (6-10) Last Admin: 04/14/20 13:00 Dose: 1 tab Documented by: Pantoprazole Sodium (Pantoprazole 40 Mg Tab) 40 mg PO DAILY [facility] Last Admin: 04/14/20 08:39 Dose: 40 mg Documented by: Pramipexole Dihydrochloride (Pramipexole Di-Hcl 0.25 Mg Tab) 0.5 mg PO [facility] Last Admin: 04/13/20 22:50 Dose: 0.5 mg Documented by: Prazosin HCl (Prazosin Hcl 1 Mg Cap) 1 mg PO [facility] Last Admin: 04/13/20 22:50 Dose: 1 mg Documented by: Quetiapine Fumarate (Quetiapine Fumarate 300 Mg Tab) 300 mg PO [facility] Last Admin: 04/13/20 22:52 Dose: 300 mg Documented by: Senna/Docusate Sodium (Senokot S 8.6-50 Mg Tab) 2 tab PO BID PRN PRN Reason: Constipation Senna/Docusate Sodium (Senokot S 8.6-50 Mg Tab) 1 tab PO [facility] Last Admin: 04/13/20 22:52 Dose: Not Given Documented by: Sertraline HCl (Sertraline Hcl 25 Mg Tab) 25 mg PO DAILY [facility] Last Admin: 04/14/20 08:38 Dose: 25 mg Documented by: Sodium Biphosphate/Sodium Phosphate (Fleet Enema 133 Ml Bot) 133 ml ND DAILYPRN PRN PRN Reason: CONSTIPATION Sodium Chloride (Flush - Normal Saline 10 Ml Syringe) 10 ml IVF Q12HR [facility] Last Admin: 04/14/20 08:40 Dose: 10 ml Documented by: Sodium Chloride (Flush - Normal Saline 10 Ml Syringe) 10 ml IVF PRN PRN PRN Reason: Saline Flush Trazodone HCl (Trazodone Hcl 50 Mg Tab) 50 mg PO [facility] Last Admin: 04/13/20 22:52 Dose: 50 mg Documented by: Vital Signs & Weight: Vital Signs Temp Pulse Resp BP BP Pulse Ox 04/14/20 08:37 107/65 04/14/20 08:00 94 L 04/14/20 07:53 98.0 F 77 18 107/65 94 L 04/14/20 07:49 97.9 F 81 16 134/86 95 Admit Weight 218 lb 9.6 oz Weight 218 lb 9.59 oz - Physical Exam General: alert & oriented x3 HEENT: mucus membranes moist Neck: supple neck Cardiac: regular rate and rhythm Lungs: normal breath sounds Neuro: grossly intact Abdomen: active bowel sounds Extremities: no edema Skin: clear Musculoskeletal: no pain - Labs Result Diagrams: 04/14/20 09:11 04/14/20 09:11 - Assessment/Plan Assessment/Plan: 1. Complicated UTI 2. Indwelling stanley catheter 3. Bladder spasms. 4. Supratherapeutic INR, currently at goal. 5. Mechanical mitral valve 6. COPD 7. Hematuria, resolved. PLAN: - INR back to goal of 2.5 - 3.5 - Pharmacy following levels. - Will sign off. Please call with any questions.
--- NOTE | 2020-04-14 15:24 | PDOC.HOSPP ---
- Subjective Encounter Date: 04/14/20 Encounter Time: 10:00 Subjective: F/u: pain/weakness/UTI Patient has no dysuria but does have some vaginal excoriation near her stanley which is burning. Her back pain is controlled with percocet and appears better. She was finally able to get up to use the bedside commode today She refuses to do rehab. She was unable to get a hold of her caretakers to see if they are still able to take care of her when she goes home. She says she called 4 times - Objective Vital Signs & Weight: Vital Signs (12 hours) Temp Pulse Resp BP BP Pulse Ox 04/14/20 08:37 107/65 04/14/20 08:00 94 L 04/14/20 07:53 98.0 F 77 18 107/65 94 L 04/14/20 07:49 97.9 F 81 16 134/86 95 Weight Admit Weight 218 lb 9.6 oz Weight 218 lb 9.59 oz I&O: 04/13/20 04/14/20 04/15/20 06:59 06:59 06:59 Intake Total 880 400 Output Total 700 900 Balance 180 -500 Result Diagrams: 04/14/20 09:11 04/14/20 09:11 Hospitalist ROS - Review of Systems Constitutional: denies: fever, chills - Medication Medications: Active Medications Generic Name Dose Route Start Last Admin Trade Name Freq PRN Reason Stop Dose Admin Acetaminophen 650 mg 04/05/20 18:09 04/11/20 17:31 Acetaminophen 325 Mg Tab PO 650 mg Q4H PRN Administration Headache/Fever Alprazolam 0.25 mg 04/05/20 18:12 04/13/20 19:28 Alprazolam 0.25 Mg Tab PO 0.25 mg QIDPRN PRN Administration Anxiety Aspirin 81 mg 04/07/20 09:00 04/14/20 08:37 Aspirin 81 Mg Enteric Coated Tablet PO 81 mg DAILY LISA Administration Atorvastatin Calcium 40 mg 04/05/20 21:00 04/13/20 22:52 Atorvastatin Calcium 40 Mg Tab PO 40 mg HS LISA Administration Benzonatate 100 mg 04/06/20 15:00 04/14/20 14:46 Benzonatate 100 Mg Cap PO 100 mg TID LISA Administration Bisacodyl 10 mg 04/10/20 12:52 04/11/20 15:30 Bisacodyl 10 Mg Supp [place] 10 mg DAILYPRN PRN Administration Constipation Calcium/Vitamin D 1 tab 04/07/20 09:00 04/14/20 08:37 Calcium Carbonate 600 Mg + Vit D Tab PO 1 tab DAILY LISA Administration Carvedilol 3.125 mg 04/06/20 21:00 04/14/20 08:37 Carvedilol 6.25 Mg Tab PO 3.125 mg BID LISA Administration Fentanyl 25 mcg 04/07/20 13:07 04/09/20 11:24 Fentanyl 100 Mcg/2 Ml Vial SLOW IVP 25 mcg Q4HR PRN Administration Pain Ferrous Sulfate 325 mg 04/06/20 21:00 04/14/20 08:39 Ferrous Sulfate 325 Mg Tab PO 325 mg BID LISA Administration Fish Oil 1,000 mg 04/07/20 09:00 04/14/20 08:50 Fish Oil 1,000 Mg Cap PO 1,000 mg DAILY LISA Administration Fluticasone Propionate 0 gm 04/12/20 09:00 04/14/20 08:40 Fluticasone Propionate Nasal [place] 16 Gm Bottle NASAL 2 sprays DAILY LISA Administration Levothyroxine Sodium 150 mcg 04/07/20 06:00 04/14/20 08:37 Levothyroxine 150 Mcg Tab PO 150 mcg 0600 LISA Administration Mometasone Furoate/Formoterol Fumar 1 puff 04/09/20 18:30 04/14/20 07:17 Mometasone 100 Mcg/Formoterol 5 Mcg 120 Puff Inhaler INH 1 puff BID-RT LISA Administration Oxycodone/Acetaminophen 1 tab 04/09/20 13:15 04/14/20 13:00 Oxycodone/Acetaminophen 5 Mg/325 Mg Tablet PO 1 tab Q4H PRN Administration Moderate to Severe Pain (6-10) Pantoprazole Sodium 40 mg 04/07/20 09:00 04/14/20 08:39 Pantoprazole 40 Mg Tab PO 40 mg DAILY LISA Administration Pramipexole Dihydrochloride 0.5 mg 04/06/20 21:00 04/13/20 22:50 Pramipexole Di-Hcl 0.25 Mg Tab PO 0.5 mg HS LISA Administration Prazosin HCl 1 mg 04/06/20 21:00 04/13/20 22:50 Prazosin Hcl 1 Mg Cap PO 1 mg HS LISA Administration Quetiapine Fumarate 300 mg 04/05/20 21:00 04/13/20 22:52 Quetiapine Fumarate 300 Mg Tab PO 300 mg HS LISA Administration Senna/Docusate Sodium 1 tab 04/06/20 21:00 04/13/20 22:52 Senokot S 8.6-50 Mg Tab PO Not Given HS LISA Sertraline HCl 25 mg 04/07/20 09:00 04/14/20 08:38 Sertraline Hcl 25 Mg Tab PO 25 mg DAILY LISA Administration Sodium Chloride 10 ml 04/08/20 09:00 04/14/20 08:40 Flush - Normal Saline 10 Ml Syringe IVF 10 ml Q12HR LISA Administration Trazodone HCl 50 mg 04/06/20 21:00 04/13/20 22:52 Trazodone Hcl 50 Mg Tab PO 50 mg HS LISA Administration Hospitalist Exam Vitals: Vital Signs (12 hours) Temp Pulse Resp BP BP Pulse Ox 04/14/20 08:37 107/65 04/14/20 08:00 94 L 04/14/20 07:53 98.0 F 77 18 107/65 94 L 04/14/20 07:49 97.9 F 81 16 134/86 95 Weight Admit Weight 218 lb 9.6 oz Weight 218 lb 9.59 oz General Appearance: NAD, awake alert General - other findings: obese Eye: PERRL, anicteric sclera ENT: normocephalic atraumatic, no oropharyngeal lesions Neck: no JVD Heart: RRR, no murmur, no gallops, no rubs Respiratory: CTAB, no wheezes, no rales, no ronchi Gastrointestinal: soft, non-tender, non-distended, normal bowel sounds, no hepatomegaly Gastrointestinal - other findings: some vaginal erythema and mild excoriation appears like candi Extremities: no cyanosis, no clubbing, no edema Extremities - other findings: left AKA Skin: normal turgor, no lesions, no rashes Neurological: cranial nerve grossly intact, normal sensation to touch, no focal deficits, no new deficit Musculoskeletal - other findings: diminished ROM lower extremities Psychiatric: normal affect, normal behavior, A&O x 3 Hosp A/P - Plan CT abdomen: no acute abnormalities MRI L- spine: multilevel areas of foraminal stenosis This is an 79 year old female who presented with dysuria around stanley catheter, admitted for complicated UTI. 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 CT showed no pyelonephritis. SHe received [address] Townsend consulted, does not think she needs long-term antibiotics - stanley catheter replaced 04/13 Severe Degenerative disc disease - most prominent at L1-L2 and L4-L5 on MRI L spine. No evidence of infection or fracture. Neurosurgery consulted, recommended outpatient follow up - continue percocet prn. Patient refuses rehab currently Cough- resolved - chest X ray showed no pneumonia. Discontinued fluids CHERIE -resolved Solitary left kidney - creatinine increased to 1.[address] scan[address] Hydrated with fluids, improved to 1.48, now 1.55 - continue to monitor Hyponatremia - sodium 130-133, appears to be her baseline, will monitor Candi yeast infection - will order clotrimazole crea m Hematuria - resolved. Urology consulted and replaced her catheter #Chronic afib #Mechanical mitral valve placement #Chronic systolic heart failure - warfarin 5 mg started 04/07. INR is 3.5, hold for one more day and resume coumadin tomorrow Constipation - ordered suppository and fleet enema prn . Refused miralax #Hypokalemia - resolved after stopping lasix S/p Left AKA - PT and OT are following Dispo: will place case management consult for rehab
[2020-04-14] MEDS: Pramipexole Di-HCl 0.25 MG TAB PO SCH (22:35)
[2020-04-14] MEDS: Atorvastatin Calcium 40 MG TAB PO SCH (22:36)
[2020-04-14] MEDS: Prazosin HCl 1 MG CAP PO SCH (22:36)
[2020-04-14] MEDS: traZODone HCl 50 MG TAB PO SCH (22:37)
[2020-04-14] MEDS: Senokot S 8.6-50 MG TAB PO SCH (22:37)
[2020-04-14] MEDS: ALPRAZolam 0.25 MG TAB PO PRN (22:38)
[2020-04-15 04:22] LABS: SARS-CoV-2 PCR by NAA Not Detected (NotDetected)
[2020-04-15] MEDS: Mometasone 100 MCG/Formoterol 5 MCG 120 PUFF INHALER INH SCH ×2 (07:03→18:42)
[2020-04-15 07:20] LABS: INR-International Normal Ratio 2.7; Prothrombin Time 29.4 sec (12.0-14.7)
[2020-04-15] MEDS: Levothyroxine 150 MCG TAB PO SCH (08:01)
[2020-04-15] MEDS: Aspirin 81 mg Enteric Coated Tablet PO SCH (08:04)
[2020-04-15] MEDS: Benzonatate 100 MG CAP PO SCH ×3 (08:04→22:33)
[2020-04-15] MEDS: Calcium Carbonate 600 MG + Vit D TAB PO SCH (08:04)
[2020-04-15] MEDS: Fish Oil 1,000 MG CAP PO SCH (08:04)
[2020-04-15] MEDS: Ferrous Sulfate 325 MG TAB PO SCH ×2 (08:05→22:34)
[2020-04-15] MEDS: Carvedilol 6.25 MG TAB PO SCH ×2 (08:07→22:34)
[2020-04-15] MEDS: Fluticasone Propionate Nasal Spray 16 gm Bottle NASAL SCH (08:11)
--- NOTE | 2020-04-15 13:47 | PDOC.HOSPP ---
- Subjective Encounter Date: 04/15/20 Encounter Time: 10:00 Subjective: Patient seen for follow-up regarding urinary tract infection. Denies any complaints today. - Objective Vital Signs & Weight: Vital Signs (12 hours) Temp Pulse Resp BP BP Pulse Ox 04/15/20 08:07 108/60 04/15/20 08:00 92 L 04/15/20 07:35 97.6 F 71 18 108/60 92 L Weight Admit Weight 218 lb 9.6 oz Weight 218 lb 9.59 oz I&O: 04/14/20 04/15/20 04/16/20 06:59 06:59 06:59 Intake Total 880 1800 240 Output Total 700 2750 Balance 180 -950 240 Result Diagrams: 04/14/20 09:11 04/14/20 09:11 Additional Labs: Labs and MAR reviewed by in Hospitalist ROS - Review of Systems Cardiovascular: denies: chest pain, palpitations, orthopnea, paroxysmal noc. dyspnea, edema, light headedness Gastrointestinal: denies: nausea, vomiting, abdominal pain, diarrhea, constipation, melena, hematochezia - Medication Medications: Active Medications Generic Name Dose Route Start Last Admin Trade Name Freq PRN Reason Stop Dose Admin Acetaminophen 650 mg 04/05/20 18:09 04/11/20 17:31 Acetaminophen 325 Mg Tab PO 650 mg Q4H PRN Administration Headache/Fever Alprazolam 0.25 mg 04/05/20 18:12 04/14/20 22:38 Alprazolam 0.25 Mg Tab PO 0.25 mg QIDPRN PRN Administration Anxiety Aspirin 81 mg 04/07/20 09:00 04/15/20 08:04 Aspirin 81 Mg Enteric Coated Tablet PO 81 mg DAILY LISA Administration Atorvastatin Calcium 40 mg 04/05/20 21:00 04/14/20 22:36 Atorvastatin Calcium 40 Mg Tab PO 40 mg HS LISA Administration Benzonatate 100 mg 04/06/20 15:00 04/15/20 08:04 Benzonatate 100 Mg Cap PO 100 mg TID LISA Administration Bisacodyl 10 mg 04/10/20 12:52 04/11/20 15:30 Bisacodyl 10 Mg Supp [place] 10 mg DAILYPRN PRN Administration Constipation Calcium/Vitamin D 1 tab 04/07/20 09:00 04/15/20 08:04 Calcium Carbonate 600 Mg + Vit D Tab PO 1 tab DAILY LISA Administration Carvedilol 3.125 mg 04/06/20 21:00 04/15/20 08:07 Carvedilol 6.25 Mg Tab PO 3.125 mg BID LISA Administration Fentanyl 25 mcg 04/07/20 13:07 04/09/20 11:24 Fentanyl 100 Mcg/2 Ml Vial SLOW IVP 25 mcg Q4HR PRN Administration Pain Ferrous Sulfate 325 mg 04/06/20 21:00 04/15/20 08:05 Ferrous Sulfate 325 Mg Tab PO 325 mg BID LISA Administration Fish Oil 1,000 mg 04/07/20 09:00 04/15/20 08:04 Fish Oil 1,000 Mg Cap PO 1,000 mg DAILY LISA Administration Fluticasone Propionate 0 gm 04/12/20 09:00 04/15/20 08:11 Fluticasone Propionate Nasal [place] 16 Gm Bottle NASAL 2 sprays DAILY LISA Administration Levothyroxine Sodium 150 mcg 04/07/20 06:00 04/15/20 08:01 Levothyroxine 150 Mcg Tab PO 150 mcg 0600 LISA Administration Mometasone Furoate/Formoterol Fumar 1 puff 04/09/20 18:30 04/15/20 07:03 Mometasone 100 Mcg/Formoterol 5 Mcg 120 Puff Inhaler INH 1 puff BID-RT LISA Administration Oxycodone/Acetaminophen 1 tab 04/09/20 13:15 04/14/20 22:37 Oxycodone/Acetaminophen 5 Mg/325 Mg Tablet PO 1 tab Q4H PRN Administration Moderate to Severe Pain (6-10) Pantoprazole Sodium 40 mg 04/07/20 09:00 04/15/20 08:04 Pantoprazole 40 Mg Tab PO 40 mg DAILY LISA Administration Pramipexole Dihydrochloride 0.5 mg 04/06/20 21:00 04/14/20 22:35 Pramipexole Di-Hcl 0.25 Mg Tab PO 0.5 mg HS LISA Administration Prazosin HCl 1 mg 04/06/20 21:00 04/14/20 22:36 Prazosin Hcl 1 Mg Cap PO 1 mg HS LISA Administration Quetiapine Fumarate 300 mg 04/05/20 21:00 04/14/20 22:37 Quetiapine Fumarate 300 Mg Tab PO 300 mg HS LISA Administration Senna/Docusate Sodium 1 tab 04/06/20 21:00 04/14/20 22:37 Senokot S 8.6-50 Mg Tab PO Not Given HS LISA Sertraline HCl 25 mg 04/07/20 09:00 04/15/20 08:04 Sertraline Hcl 25 Mg Tab PO 25 mg DAILY LISA Administration Sodium Chloride 10 ml 04/08/20 09:00 04/15/20 08:13 Flush - Normal Saline 10 Ml Syringe IVF 10 ml Q12HR LISA Administration Trazodone HCl 50 mg 04/06/20 21:00 04/14/20 22:37 Trazodone Hcl 50 Mg Tab PO 50 mg HS LISA Administration Hospitalist Exam Vitals: Vital Signs (12 hours) Temp Pulse Resp BP BP Pulse Ox 04/15/20 08:07 108/60 04/15/20 08:00 92 L 04/15/20 07:35 97.6 F 71 18 108/60 92 L Weight Admit Weight 218 lb 9.6 oz Weight 218 lb 9.59 oz General - other findings: Obese ENT: moist mucosa Neck: supple Heart: RRR Respiratory: CTAB Gastrointestinal: soft, non-tender Skin: no rashes Psychiatric: normal affect, normal behavior Hosp A/P - Plan 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 -Stanley catheter was replaced during this admission. Severe Degenerative disc disease -To follow-up as outpatient with neurosurgery CHERIE -resolved Solitary left kidney -Check a.m. labs Hyponatremia -Check a.m. labs Candi yeast infection - clotrimazole cream Hematuria - resolved. Urology consulted and replaced her catheter #Chronic afib #Mechanical mitral valve placement #Chronic systolic heart failure - warfarin 5 mg started 04/07. INR is 2.7 today. Constipation - ordered suppository and fleet enema prn . Refused miralax #Hypokalemia - resolved S/p Left AKA - PT and OT are following
[2020-04-15] MEDS ORDERED: Warfarin Sodium 2.5 MG TAB PO SCH (17:00)
--- NOTE | 2020-04-15 17:04 | EKG ---
Test Reason : Blood Pressure : / mmHG Vent. Rate : 066 BPM Atrial Rate : 063 BPM P-R Int : 000 ms QRS Dur : 106 ms QT Int : 478 ms P-R-T Axes : 000 -43 075 degrees QTc Int : 501 ms Atrial fibrillation Left axis deviation Nonspecific T wave abnormality , probably digitalis effect Prolonged QT Abnormal ECG Confirmed by LINDA ORONA DO ([id number]), editor trade journal NURY RAMSEY ([id number]) on 04/15/2020 5:03:41 PM Referred By: Confirmed By:LINDA ORONA DO
[2020-04-15] MEDS ORDERED: Guaifenesin DM 100-10/5 ML UDCUP PO PRN (20:45)
[2020-04-15] MEDS ORDERED: ALPRAZolam 0.25 MG TAB PO PRN (21:16)
[2020-04-15] MEDS: traZODone HCl 50 MG TAB PO SCH (22:33)
[2020-04-15] MEDS: Senokot S 8.6-50 MG TAB PO SCH (22:33)
[2020-04-15] MEDS: Atorvastatin Calcium 40 MG TAB PO SCH (22:34)
[2020-04-15] MEDS: Pramipexole Di-HCl 0.25 MG TAB PO SCH (22:35)
[2020-04-15] MEDS: Prazosin HCl 1 MG CAP PO SCH (22:35)
[2020-04-16] MEDS: Acetaminophen 325 MG TAB PO PRN (00:11)
[2020-04-16] MEDS: Levothyroxine 150 MCG TAB PO SCH (05:47)
[2020-04-16 06:31] LABS: #Eosinphils 0.2 thou/uL (0.0-0.7); #Lymphocytes 1.2 thou/uL (1.20-3.40); #Monocytes 0.7 thou/uL (0.11-0.59); #Neutrophils 7.8 thou/uL (1.40-6.50); %Basophils 0.2 % (0.0-1.0); %Eosinophils 1.6 % (0.0-10.0); %Monocytes 6.8 % (0.0-10.0); %Neutrophils 79.4 % (42.0-75.0); Hemoglobin 9.7 g/dL (12.0-16.0); Mean Corpuscular HGB CONC 34.2 g/dL (32.0-36.0); Mean Corpuscular Hemoglobin 30.4 pg (27.0-31.0); Mean Corpuscular Volume 88.9 fL (78.0-98.0); Mean Platelet Volume 8.4 fL (7.4-10.4); Platelet Count 192 thou/uL (130-400); RBC Distribution Width 16.8 % (11.5-14.5); Red Blood Cell (RBC) Count 3.19 mill/uL (4.20-5.40); White Blood Cell (WBC) Count 9.8 thou/uL (4.8-10.8)
[2020-04-16 06:34] LABS: INR-International Normal Ratio 2.5; Prothrombin Time 27.3 sec (12.0-14.7)
[2020-04-16 06:58] LABS: Anion Gap 14 mmol/L (10-20); BUN (Urea Nitrogen) 38 mg/dL (9.8-20.1); Calc. Creatinine Clearance 52 mL/min (70-130); Calcium 8.8 mg/dL (7.8-10.44); Carbon Dioxide 25 mmol/L (23-31); Chloride 94 mmol/L (98-107); Glucose 129 mg/dL (83-110); Potassium 4.1 mmol/L (3.5-5.1); Sodium 129 mmol/L (136-145)
[2020-04-16] MEDS: Aspirin 81 mg Enteric Coated Tablet PO SCH (08:33)
[2020-04-16] MEDS: Fluticasone Propionate Nasal Spray 16 gm Bottle NASAL SCH (08:33)
[2020-04-16] MEDS: Benzonatate 100 MG CAP PO SCH (08:33)
[2020-04-16] MEDS: Calcium Carbonate 600 MG + Vit D TAB PO SCH (08:34)
[2020-04-16] MEDS: Fish Oil 1,000 MG CAP PO SCH (08:34)
[2020-04-16] MEDS: Carvedilol 6.25 MG TAB PO SCH (08:34)
[2020-04-16] MEDS: Ferrous Sulfate 325 MG TAB PO SCH (08:34)
--- NOTE | 2020-04-16 09:31 | PDOC.DS.DS ---
Provider Date of Admission: 04/05/20 18:09 Date of Discharge: 04/16/20 Admitting Provider: Shaista Matthews MD Consultations: Cardiology (Dr. Pearson), Infectious Disease (Dr. Jones), Urology (Dr. Hansen) Primary Care Physician: NO PCP PROVIDER Course Hospital Course: Discharge diagnosis: 1. Recurrent UTI due to indwelling Stanley catheter 2. Acute kidney injury 3. Hematuria 4. Hyponatremia 5. Hypokalemia Hospital course: Patient is a pleasant 79-year-old lady who was admitted to the hospital on April 05, 2020 for complicated urinary tract infection with recurrent infections and outpatient treatment failure. She also had a supratherapeutic INR in the context of recent antibiotic therapy. Her warfarin was held and INR was slowly allowed to drift back, 2.5 on the day of discharge. Her Coumadin is being resumed at the time of discharge. She was seen by cardiology service for supratherapeutic INR. She had a 2D echocardiogram done, which showed left ventricle ejection fraction of 50 to 55%. Diastolic function could not be determined because of atrial fibrillation. She was also seen by infectious disease service because urine culture grew Acinetobacter. She was switched to oral levofloxacin and antibiotic was subsequently discontinued. CT scan of the abdomen and pelvis showed cholelithiasis, right adrenal adenoma and hyperplasia of the left adrenal gland. Lumbar spine MRI showed multilevel areas of foraminal stenosis. Renal ultrasound showed an unremarkable left kidney, right adrenal adenoma. Bladder was poorly evaluated. She was seen by urology service for gross hematuria, most likely result of her anticoagulation in conjunction with probable urinary tract infection. The recommended catheter removal and replacement, which was done on April 13, 2020. There was no further urologic recommendations. She was recommended inpatient rehab but patient did not wish to go to inpatient rehab. She wished to go home with home health and home supports. She is being discharged home in a stable condition. Many thanks for allowing me to participate in your patient's care. Please feel free to contact me with any questions or concerns. Discharge destination: Home Total amount of time spent coordinating this discharge: 25 minutes Resuscitation Status: 04/05/20 18:09 Resuscitation Status Routine Resuscitation Status: FULL: Full Resuscitation Lab Results: 04/16/20 05:46 04/16/20 05:46 Abnormal Lab Results - Last 48 hrs 04/14/20 09:11: Sodium 130 L, Chloride 92 L, BUN 38 H, Creatinine 1.53 H 04/15/20 06:45: PT 29.4 H 04/16/20 05:46: PT 27.3 H 04/16/20 05:46: Sodium 129 L, Chloride 94 L, BUN 38 H, Creatinine 1.36 H 04/16/20 05:46: RBC 3.19 L, Hgb 9.7 L, Hct 28.4 L, RDW 16.8 H, Neutrophils % 79.4 H, Lymphocytes % 12.0 L, Neutrophils # 7.8 H, Monocytes # 0.7 H Microbiology - Entire Visit 04/05/20 21:43 Venous blood - Right Arm Blood Culture - Final NO GROWTH IN 5 DAYS 04/05/20 21:50 Venous blood - Left Hand Blood Culture - Final NO GROWTH IN 5 DAYS 04/05/20 12:20 Urine stanley catheter Urine Culture - Final Acinetobacter baumanniicomplex Vitals: Vital Signs (12 hours) Temp Pulse Resp BP BP Pulse Ox 04/16/20 08:34 112/71 04/16/20 08:00 97.7 F 72 18 112/71 93 L 04/15/20 22:34 108/60 Weight Admit Weight 218 lb 9.6 oz Weight 218 lb 9.59 oz Physical Exam: The patient was seen and examined on the day of discharge. Patient denies chest pain or shortness of breath. Vital signs are stable. S1 and S2 are heard. Lungs are clear to auscultation bilaterally. Plan Home Medications: Medication Instructions Recorded Confirmed Type Atorvastatin Calcium 40 mg PO HS 09/24/17 04/05/20 History Calcium Carbonate/Vitamin D3 1 tab PO DAILY 09/24/17 04/05/20 History [Calcium 600 + Vitamin D 400] [place]-3 Fatty Acids/Fish Oil [Fish 1 cap PO DAILY 09/24/17 04/05/20 History Oil 1,000 mg Capsule] Pantoprazole Sodium 40 mg PO DAILY 09/24/17 04/05/20 History Pramipexole Di-HCl [Pramipexole 0.5 mg PO HS 09/24/17 04/05/20 History Dihydrochloride] Prazosin HCl [Minipress] 1 mg PO HS 09/24/17 04/05/20 History QUEtiapine Fumarate [SEROquel] 300 mg PO HS 09/24/17 04/05/20 History Ferrous Sulfate [Feosol] 325 mg PO BID #60 tab 09/28/17 04/05/20 Rx Sertraline HCl [Zoloft] 25 mg PO DAILY 02/14/18 04/06/20 History ALPRAZolam [Xanax] 0.25 mg PO QID PRN 06/14/19 04/05/20 History Levothyroxine Sodium [Synthroid] 150 mcg PO DAILY 06/14/19 04/05/20 History traZODone HCl [Trazodone HCl] 50 mg PO HS 06/14/19 04/05/20 History Carvedilol [Coreg] 3.125 mg PO BID 06/15/19 04/06/20 History Acetaminophen [Tylenol Extra 1,000 mg PO Q4HR PRN 10/13/19 04/05/20 History Strength] Nitroglycerin [Nitrostat] 0.4 mg PO ASDIR PRN 10/13/19 04/05/20 History Sennosides/Docusate Sodium [Stool 1 tab PO HS 10/13/19 04/05/20 History Softener-Stim Lax Softgl] Albuterol Sulfate [Albuterol 1 inh INH Q6HR PRN 04/05/20 04/05/20 History Sulfate Hfa] Fluticasone/Vilanterol [Breo 1 inh INH DAILY 04/05/20 04/05/20 History Ellipta 200-25 Mcg INH] Aspirin [Aspirin EC] 81 mg PO DAILY 04/06/20 04/06/20 History Benzonatate [Tessalon] 100 mg PO TID 04/06/20 04/06/20 History Furosemide [Lasix] 80 mg PO DAILY 04/06/20 04/06/20 History Warfarin Sodium [Coumadin] 5 mg PO 1700 04/06/20 04/05/20 History Fluticasone Propionate [Flonase 1 spray EA NARE DAILY 04/11/20 04/11/20 History Nasal [place]] ALPRAZolam [Xanax] 0.5 mg PO HS PRN 04/16/20 04/16/20 History Allergies: codeine Allergy (Verified 04/05/20 23:33) Sulfa (Sulfonamide Antibiotics) Allergy (Verified 04/05/20 23:33) Referrals: PROVIDER,NO PCP [Primary Care Provider] - 3 Days Ana Jones MD [Active] - 3 Days Disposition: HOME Quality CORE MEASURES:: N/A
[2020-04-16] MEDS: Mometasone 100 MCG/Formoterol 5 MCG 120 PUFF INHALER INH SCH (10:00)
[2020-04-16 12:12] VITALS: BP 103/44; TEMP 97.6
[2020-04-16] MEDS ORDERED: Clotrimazole 2% 3 Day Vag Cr 22.2 GM TUBE VAG SCH (21:00)
== END 2020-04-16 12:11 | disposition home or self-care (01) | DRG 699 ==
LOC: ERS 11:53 → T4-A 15:43 → OBSVTOIN 18:09
PROVIDERS: ADMIT Internal Medicine; ATTEND Internal Medicine
DX: T83.511A Infection and inflammatory reaction due to indwelling urethral catheter, initial encounter (principal); N17.9 Acute kidney failure, unspecified; E87.1 Hypo-osmolality and hyponatremia; I48.20 Chronic atrial fibrillation, unspecified; I42.0 Dilated cardiomyopathy; I50.22 Chronic systolic (congestive) heart failure; N39.0 Urinary tract infection, site not specified; Y83.9 Surgical procedure, unspecified as the cause of abnormal reaction of the patient, or of later complication, without mention of misadventure at the time of the procedure; M19.90 Unspecified osteoarthritis, unspecified site; J45.909 Unspecified asthma, uncomplicated; E78.00 Pure hypercholesterolemia, unspecified; J44.9 Chronic obstructive pulmonary disease, unspecified; E87.6 Hypokalemia; E66.9 Obesity, unspecified; F32.9 Major depressive disorder, single episode, unspecified; M54.9 Dorsalgia, unspecified; M47.816 Spondylosis without myelopathy or radiculopathy, lumbar region; K59.00 Constipation, unspecified; R31.0 Gross hematuria; B37.9 Candidiasis, unspecified; E78.5 Hyperlipidemia, unspecified; N18.9 Chronic kidney disease, unspecified; Z20.822 Contact with and (suspected) exposure to COVID-19; Z92.21 Personal history of antineoplastic chemotherapy; Z85.72 Personal history of non-Hodgkin lymphomas; Z90.5 Acquired absence of kidney; Z90.710 Acquired absence of both cervix and uterus; Z90.721 Acquired absence of ovaries, unilateral; Z87.891 Personal history of nicotine dependence; Z90.49 Acquired absence of other specified parts of digestive tract; Z95.4 Presence of other heart-valve replacement; Z98.890 Other specified postprocedural states; Z89.612 Acquired absence of left leg above knee; Z88.2 Allergy status to sulfonamides; Z88.8 Allergy status to other drugs, medicaments and biological substances; Z79.82 Long term (current) use of aspirin; Z79.899 Other long term (current) drug therapy; Z88.6 Allergy status to analgesic agent; Z79.01 Long term (current) use of anticoagulants; Z68.37 Body mass index [BMI] 37.0-37.9, adult; Z79.890 Hormone replacement therapy
CPT/HCPCS: 36415; 51702; 71045; 72148; 74176; 76770; 80048; 80053; 80076; 81003; 81015; 82565; 85025; 85027; 85610; 85730; 87040; 87077; 87086; 87186; 87635; 93005; 93306; 94760; 96365; G0378; J0696; J1650; J1940; J2185; J3010; J3430; J3490; U0003; U0005

== ENCOUNTER 2020-07-25 10:43 | Inpatient (IN) | payer MEDICARE ==
[2020-07-25] MEDS ORDERED: Albuterol Sulfate 1.25 MG/3 ML NEB ONE (11:40)
[2020-07-25 11:44] LABS: #Basophils 0.1 thou/uL (0.0-0.2); #Eosinphils 0.1 thou/uL (0.0-0.7); #Lymphocytes 1.3 thou/uL (1.20-3.40); #Neutrophils 8.5 thou/uL (1.40-6.50); %Basophils 0.5 % (0.0-1.0); %Eosinophils 0.9 % (0.0-10.0); %Lymphocytes 12.2 % (21.0-51.0); %Monocytes 8.9 % (0.0-10.0); %Neutrophils 77.5 % (42.0-75.0); Hemoglobin 9.8 g/dL (12.0-16.0); Mean Corpuscular HGB CONC 31.1 g/dL (32.0-36.0); Mean Corpuscular Hemoglobin 26.7 pg (27.0-31.0); Mean Corpuscular Volume 85.9 fL (78.0-98.0); Mean Platelet Volume 8.1 fL (7.4-10.4); Platelet Count 312 thou/uL (130-400); RBC Distribution Width 16.5 % (11.5-14.5); Red Blood Cell (RBC) Count 3.68 mill/uL (4.20-5.40)
[2020-07-25 12:05] LABS: ALT (SGPT) 25 U/L (8-55); AST (SGOT) 24 U/L (5-34); Albumin 3.5 g/dL (3.4-4.8); Alkaline Phosphatase 105 U/L (40-110); Anion Gap 13 mmol/L (10-20); BUN (Urea Nitrogen) 25 mg/dL (9.8-20.1); Bilirubin, Total 0.5 mg/dL (0.2-1.2); Calc. Creatinine Clearance 0 mL/min (70-130); Calcium 11.4 mg/dL (7.8-10.44); Carbon Dioxide 28 mmol/L (23-31); Chloride 90 mmol/L (98-107); Globulin 3.3 g/dL (2.4-3.5); Glucose 134 mg/dL (83-110); Potassium 4.5 mmol/L (3.5-5.1); Protein, Total 6.8 g/dL (5.8-8.1); Sodium 126 mmol/L (136-145)
[2020-07-25] MEDS ORDERED: methylPREDNISolone Sod Succ/PF 125 MG/2 ML VIAL ONE (12:20)
[2020-07-25 12:23] LABS: CKMB 3.9 ng/mL (0-6.6)
[2020-07-25 12:24] LABS: Actual Bicarbonate (HCO3a) 27.4 mEq/L (22-28); Analyzer IN Cardio ER; Base Excess (BEa) 2.9 mEq/L (-2.0 to +3.0); CO2 Tension 41.7 mmHg (35.0-45.0); Calcium, Ionized (arterial) 1.35 mmol/L (1.12-1.30); Carboxyhemoglobin (COHb) 0.3 gm% (0.0-3.0); Hemoglobin (Hb) 10.7 g/dL (12.0-16.0); O2 Tension (PaO2), arterial 76.3 mmHg (> 60.0); Potassium - ABG Lab 4.43 mmol/L (3.70-5.30); pH, Arterial 7.44 (7.35-7.45)
[2020-07-25 12:26] LABS: ALV-art Gradient 71.215 mmHg (0-20); Puncture Site LRA
[2020-07-25 13:00] LABS: Bilirubin Negative (Negative); Blood, Urine Large (Negative); Glucose, Urine (Dipstick) Negative (Negative); Ketone, Urine Negative (Negative); Leukocyte Large (Negative); Nitrite Negative (Negative); Protein, Urine (Dipstick) 30 mg/dL (Neg-Trace); Urobilinogen 0.2 mg/dL (Less than 2)
[2020-07-25 13:04] LABS: Clarity Cloudy (Clear)
[2020-07-25 13:12] LABS: Bacteria/HPF 4+ HPF (None Seen); Renal Epithelial 0-3 HPF (None Seen); WBC/HPF Greater Than 50 HPF (0-3)
[2020-07-25] MEDS ORDERED: Furosemide 40 MG/4 ML VIAL ONE (13:29)
[2020-07-25 13:54] LABS: SARS-CoV-2 NAA Rapid Test Not Detected (NotDetected)
[2020-07-25 14:47] LABS: INR-International Normal Ratio 3.8; Prothrombin Time 38.1 sec (12.0-14.7)
[2020-07-25 14:48] LABS: PTT 86.7 sec (22.9-36.1)
[2020-07-25 15:21] LABS: Troponin I 0.054 ng/mL (< 0.028)
[2020-07-25 17:46] LABS: Troponin I 0.042 ng/mL (< 0.028)
[2020-07-25 20:38] VITALS: BMI 37.6
[2020-07-25] MEDS: methylPREDNISolone Sod Succ 40 MG VIAL IVP SCH (21:31)
[2020-07-26 03:56] LABS: #Lymphocytes 0.7 thou/uL (1.20-3.40); #Monocytes 0.3 thou/uL (0.11-0.59); #Neutrophils 10.1 thou/uL (1.40-6.50); %Basophils 0.1 % (0.0-1.0); %Eosinophils 0.4 % (0.0-10.0); %Lymphocytes 6.5 % (21.0-51.0); %Monocytes 2.6 % (0.0-10.0); %Neutrophils 90.5 % (42.0-75.0); Mean Corpuscular HGB CONC 33.7 g/dL (32.0-36.0); Mean Corpuscular Hemoglobin 29.3 pg (27.0-31.0); Mean Corpuscular Volume 86.8 fL (78.0-98.0); Mean Platelet Volume 8.1 fL (7.4-10.4); Platelet Count 286 thou/uL (130-400); RBC Distribution Width 16.1 % (11.5-14.5); Red Blood Cell (RBC) Count 3.77 mill/uL (4.20-5.40); White Blood Cell (WBC) Count 11.2 thou/uL (4.8-10.8)
[2020-07-26 04:17] LABS: Prothrombin Time 39.6 sec (12.0-14.7)
[2020-07-26 04:18] LABS: Anion Gap 15 mmol/L (10-20); BUN (Urea Nitrogen) 24 mg/dL (9.8-20.1); Calc. Creatinine Clearance 42 mL/min (70-130); Calcium 11.4 mg/dL (7.8-10.44); Carbon Dioxide 27 mmol/L (23-31); Chloride 90 mmol/L (98-107); Glucose 169 mg/dL (83-110); Potassium 4.4 mmol/L (3.5-5.1); Sodium 128 mmol/L (136-145)
[2020-07-26] MEDS ORDERED: Levothyroxine 150 MCG TAB PO SCH (07:45)
[2020-07-26] MEDS ORDERED: Aspirin 81 mg Enteric Coated Tablet PO SCH (09:00)
[2020-07-26] MEDS: Carvedilol 6.25 MG TAB PO SCH ×2 (09:29→20:46)
[2020-07-26] MEDS: Ferrous Sulfate 325 MG TAB PO SCH ×2 (09:29→20:45)
[2020-07-26] MEDS: Furosemide 40 MG/4 ML VIAL SLOW IVP SCH (09:30)
[2020-07-26] MEDS: methylPREDNISolone Sod Succ 40 MG VIAL IVP SCH (09:30)
[2020-07-26] MEDS: Benzonatate 100 MG CAP PO PRN ×2 (17:20→20:44)
[2020-07-26] MEDS: Mometasone 200 MCG/Formoterol 5 MCG 120 PUFF INHALER INH SCH (18:41)
[2020-07-26] MEDS: Senokot S 8.6-50 MG TAB PO SCH (20:44)
[2020-07-26] MEDS: Atorvastatin Calcium 40 MG TAB PO SCH (20:44)
[2020-07-26] MEDS: Aspirin 81 mg Enteric Coated Tablet PO SCH (20:45)
[2020-07-26] MEDS: Prazosin HCl 1 MG CAP PO SCH (20:47)
[2020-07-27] MEDS: Levothyroxine 150 MCG TAB PO SCH (05:43)
[2020-07-27 05:57] LABS: INR-International Normal Ratio 3.9; Prothrombin Time 38.8 sec (12.0-14.7)
[2020-07-27] MEDS: Benzonatate 100 MG CAP PO PRN ×3 (06:14→20:56)
[2020-07-27] MEDS: Acetaminophen 325 MG TAB PO PRN ×3 (06:14→20:55)
[2020-07-27] MEDS: Mometasone 200 MCG/Formoterol 5 MCG 120 PUFF INHALER INH SCH ×2 (07:06→19:20)
[2020-07-27] MEDS: predniSONE 5 MG TAB PO SCH (07:49)
[2020-07-27] MEDS: Carvedilol 6.25 MG TAB PO SCH ×2 (07:49→20:56)
[2020-07-27] MEDS: Ferrous Sulfate 325 MG TAB PO SCH ×2 (07:49→20:56)
[2020-07-27] MEDS: Furosemide 40 MG/4 ML VIAL SLOW IVP SCH (07:50)
[2020-07-27 07:53] LABS: #Eosinphils 0.1 thou/uL (0.0-0.7); #Lymphocytes 1.3 thou/uL (1.20-3.40); #Monocytes 1.1 thou/uL (0.11-0.59); #Neutrophils 9.9 thou/uL (1.40-6.50); %Basophils 0.4 % (0.0-1.0); %Eosinophils 0.5 % (0.0-10.0); %Lymphocytes 10.4 % (21.0-51.0); %Monocytes 8.6 % (0.0-10.0); %Neutrophils 80.1 % (42.0-75.0); Hemoglobin 10.5 g/dL (12.0-16.0); Mean Corpuscular Hemoglobin 28.8 pg (27.0-31.0); Mean Corpuscular Volume 87.1 fL (78.0-98.0); Mean Platelet Volume 7.5 fL (7.4-10.4); Platelet Count 281 thou/uL (130-400); RBC Distribution Width 16.2 % (11.5-14.5); Red Blood Cell (RBC) Count 3.66 mill/uL (4.20-5.40); White Blood Cell (WBC) Count 12.3 thou/uL (4.8-10.8)
[2020-07-27 08:09] LABS: Anion Gap 11 mmol/L (10-20); BUN (Urea Nitrogen) 22 mg/dL (9.8-20.1); Calc. Creatinine Clearance 47 mL/min (70-130); Calcium 10.6 mg/dL (7.8-10.44); Carbon Dioxide 27 mmol/L (23-31); Chloride 89 mmol/L (98-107); Glucose 118 mg/dL (83-110); Sodium 123 mmol/L (136-145)
[2020-07-27] MEDS: Atorvastatin Calcium 40 MG TAB PO SCH (20:56)
[2020-07-27] MEDS: Senokot S 8.6-50 MG TAB PO SCH (20:56)
[2020-07-27] MEDS: Aspirin 81 mg Enteric Coated Tablet PO SCH (20:56)
[2020-07-27] MEDS: Prazosin HCl 1 MG CAP PO SCH (20:57)
[2020-07-27] MEDS ORDERED: ALPRAZolam 0.5 MG TAB PO SCH ×2 (22:15→22:45)
[2020-07-28] MEDS: Levothyroxine 150 MCG TAB PO SCH (06:29)
[2020-07-28] MEDS: Mometasone 200 MCG/Formoterol 5 MCG 120 PUFF INHALER INH SCH ×2 (07:56→19:52)
[2020-07-28] MEDS: Carvedilol 6.25 MG TAB PO SCH ×2 (08:03→21:01)
[2020-07-28] MEDS: Ferrous Sulfate 325 MG TAB PO SCH ×2 (08:03→21:01)
[2020-07-28] MEDS: predniSONE 5 MG TAB PO SCH (08:03)
[2020-07-28] MEDS: Acetaminophen 325 MG TAB PO PRN ×2 (08:07→18:23)
[2020-07-28] MEDS ORDERED: Iopamidol-370 76% 500 ML 1 ML ONE (10:02)
[2020-07-28 14:38] LABS: INR-International Normal Ratio 2.2; PTT 44.9 sec (22.9-36.1); Prothrombin Time 25.1 sec (12.0-14.7)
[2020-07-28 14:41] LABS: Anion Gap 12 mmol/L (10-20); BUN (Urea Nitrogen) 18 mg/dL (9.8-20.1); Calc. Creatinine Clearance 51 mL/min (70-130); Calcium 9.3 mg/dL (7.8-10.44); Carbon Dioxide 29 mmol/L (23-31); Chloride 87 mmol/L (98-107); Glucose 156 mg/dL (83-110); Potassium 3.7 mmol/L (3.5-5.1); Sodium 124 mmol/L (136-145)
[2020-07-28] MEDS ORDERED: Bisacodyl 10 MG SUPP PR PRN (16:02)
[2020-07-28] MEDS: Warfarin Sodium 5 MG TAB PO SCH (18:21)
[2020-07-28] MEDS: Benzonatate 100 MG CAP PO PRN (18:23)
[2020-07-28] MEDS: Atorvastatin Calcium 40 MG TAB PO SCH (21:01)
[2020-07-28] MEDS: Senokot S 8.6-50 MG TAB PO SCH (21:01)
[2020-07-28] MEDS: Aspirin 81 mg Enteric Coated Tablet PO SCH (21:01)
[2020-07-28] MEDS: Prazosin HCl 1 MG CAP PO SCH (21:02)
[2020-07-29] MEDS: Levothyroxine 150 MCG TAB PO SCH (05:38)
[2020-07-29 06:57] LABS: #Eosinphils 0.3 thou/uL (0.0-0.7); #Lymphocytes 1.6 thou/uL (1.20-3.40); #Monocytes 1.2 thou/uL (0.11-0.59); #Neutrophils 9.1 thou/uL (1.40-6.50); %Basophils 0.3 % (0.0-1.0); %Eosinophils 2.2 % (0.0-10.0); %Lymphocytes 13.2 % (21.0-51.0); %Monocytes 9.6 % (0.0-10.0); %Neutrophils 74.6 % (42.0-75.0); Hemoglobin 9.8 g/dL (12.0-16.0); Mean Corpuscular Hemoglobin 28.9 pg (27.0-31.0); Mean Corpuscular Volume 84.9 fL (78.0-98.0); Mean Platelet Volume 7.7 fL (7.4-10.4); Platelet Count 254 thou/uL (130-400); Red Blood Cell (RBC) Count 3.41 mill/uL (4.20-5.40); White Blood Cell (WBC) Count 12.1 thou/uL (4.8-10.8)
[2020-07-29 07:05] LABS: INR-International Normal Ratio 2.1
[2020-07-29 07:14] LABS: Anion Gap 12 mmol/L (10-20); BUN (Urea Nitrogen) 16 mg/dL (9.8-20.1); Calc. Creatinine Clearance 61 mL/min (70-130); Calcium 8.8 mg/dL (7.8-10.44); Carbon Dioxide 28 mmol/L (23-31); Chloride 85 mmol/L (98-107); Glucose 113 mg/dL (83-110); Potassium 3.4 mmol/L (3.5-5.1); Sodium 122 mmol/L (136-145)
[2020-07-29] MEDS: Mometasone 200 MCG/Formoterol 5 MCG 120 PUFF INHALER INH SCH ×2 (07:21→19:45)
[2020-07-29] MEDS: Polyethylene Glycol 3350 17 GM Packet PO SCH (08:03)
[2020-07-29] MEDS: Carvedilol 6.25 MG TAB PO SCH ×2 (08:03→19:57)
[2020-07-29] MEDS: Ferrous Sulfate 325 MG TAB PO SCH ×2 (08:03→19:57)
[2020-07-29] MEDS: predniSONE 5 MG TAB PO SCH (08:03)
[2020-07-29] MEDS: Senokot S 8.6-50 MG TAB PO SCH ×2 (08:04→19:57)
[2020-07-29] MEDS ORDERED: ALPRAZolam 0.25 MG TAB PO PRN (11:55)
[2020-07-29] MEDS: Warfarin Sodium 2.5 MG TAB PO SCH (18:04)
[2020-07-29] MEDS: Atorvastatin Calcium 40 MG TAB PO SCH (19:57)
[2020-07-29] MEDS: Aspirin 81 mg Enteric Coated Tablet PO SCH (19:57)
[2020-07-29] MEDS: Prazosin HCl 1 MG CAP PO SCH (19:57)
[2020-07-30] MEDS: Levothyroxine 150 MCG TAB PO SCH (05:32)
[2020-07-30] MEDS: Acetaminophen 325 MG TAB PO PRN ×2 (05:34→22:16)
[2020-07-30 06:22] LABS: INR-International Normal Ratio 2.1; Prothrombin Time 24.3 sec (12.0-14.7)
[2020-07-30] MEDS: Mometasone 200 MCG/Formoterol 5 MCG 120 PUFF INHALER INH SCH ×2 (06:28→20:32)
[2020-07-30 06:34] LABS: Anion Gap 13 mmol/L (10-20); BUN (Urea Nitrogen) 16 mg/dL (9.8-20.1); Calc. Creatinine Clearance 55 mL/min (70-130); Calcium 8.7 mg/dL (7.8-10.44); Carbon Dioxide 25 mmol/L (23-31); Chloride 87 mmol/L (98-107); Glucose 111 mg/dL (83-110); Magnesium 1.3 mg/dL (1.6-2.6); Potassium 3.4 mmol/L (3.5-5.1); Sodium 122 mmol/L (136-145)
[2020-07-30] MEDS: Senokot S 8.6-50 MG TAB PO SCH ×2 (08:17→22:10)
[2020-07-30] MEDS: predniSONE 5 MG TAB PO SCH (08:17)
[2020-07-30] MEDS: Ferrous Sulfate 325 MG TAB PO SCH (08:17)
[2020-07-30] MEDS: Furosemide 40 MG TAB PO SCH (08:17)
[2020-07-30] MEDS: Digoxin 0.125 MG TAB PO SCH (08:17)
[2020-07-30] MEDS: Carvedilol 6.25 MG TAB PO SCH ×2 (08:18→22:11)
[2020-07-30] MEDS: Polyethylene Glycol 3350 17 GM Packet PO SCH (08:19)
[2020-07-30] MEDS: Trospium 20 MG TAB PO SCH (08:23)
[2020-07-30] MEDS ORDERED: Magnesium Citrate 300 ML BOT PO SCH (09:45)
[2020-07-30] MEDS ORDERED: Potassium Chloride 20 MEQ TAB PO SCH (11:30)
[2020-07-30] MEDS ORDERED: Sodium Chloride 0.9% 1,000 ML IV SCH (11:30)
[2020-07-30] MEDS ORDERED: Magnesium Sulfate 4 GM in Sodium Chloride 0.9% 250 ML 250 ML IVPB SCH (11:30)
[2020-07-30] MEDS: Warfarin Sodium 2.5 MG TAB PO SCH (17:04)
[2020-07-30] MEDS: Aspirin 81 mg Enteric Coated Tablet PO SCH (22:10)
[2020-07-30] MEDS: Docusate 100 MG CAP PO SCH (22:10)
[2020-07-30] MEDS: Prazosin HCl 1 MG CAP PO SCH (22:11)
[2020-07-30] MEDS: Atorvastatin Calcium 40 MG TAB PO SCH (22:11)
[2020-07-30] MEDS: Benzonatate 100 MG CAP PO PRN (22:15)
[2020-07-31] MEDS: Levothyroxine 150 MCG TAB PO SCH (05:48)
[2020-07-31] MEDS: Acetaminophen 325 MG TAB PO PRN ×3 (05:50→21:43)
[2020-07-31 06:15] LABS: #Basophils 0.2 thou/uL (0.0-0.2); #Eosinphils 0.3 thou/uL (0.0-0.7); #Lymphocytes 0.9 thou/uL (1.20-3.40); #Neutrophils 9.8 thou/uL (1.40-6.50); %Eosinophils 2.2 % (0.0-10.0); %Lymphocytes 7.4 % (21.0-51.0); %Monocytes 7.8 % (0.0-10.0); %Neutrophils 80.5 % (42.0-75.0); Hemoglobin 9.8 g/dL (12.0-16.0); Mean Corpuscular Hemoglobin 29.2 pg (27.0-31.0); Mean Corpuscular Volume 85.9 fL (78.0-98.0); Mean Platelet Volume 8.1 fL (7.4-10.4); Platelet Count 233 thou/uL (130-400); RBC Distribution Width 16.5 % (11.5-14.5); Red Blood Cell (RBC) Count 3.36 mill/uL (4.20-5.40); White Blood Cell (WBC) Count 12.1 thou/uL (4.8-10.8)
[2020-07-31 06:17] LABS: INR-International Normal Ratio 2.2
[2020-07-31] MEDS: Mometasone 200 MCG/Formoterol 5 MCG 120 PUFF INHALER INH SCH ×2 (06:32→19:04)
[2020-07-31 06:47] LABS: Anion Gap 11 mmol/L (10-20); BUN (Urea Nitrogen) 16 mg/dL (9.8-20.1); Calc. Creatinine Clearance 58 mL/min (70-130); Calcium 8.3 mg/dL (7.8-10.44); Carbon Dioxide 29 mmol/L (23-31); Chloride 90 mmol/L (98-107); Glucose 129 mg/dL (83-110); Magnesium 2.5 mg/dL (1.6-2.6); Potassium 4.3 mmol/L (3.5-5.1); Sodium 126 mmol/L (136-145)
[2020-07-31] MEDS: Docusate 100 MG CAP PO SCH ×2 (08:36→21:45)
[2020-07-31] MEDS: Polyethylene Glycol 3350 17 GM Packet PO SCH (08:36)
[2020-07-31] MEDS: Senokot S 8.6-50 MG TAB PO SCH ×2 (08:36→21:45)
[2020-07-31] MEDS: Trospium 20 MG TAB PO SCH (08:40)
[2020-07-31] MEDS: Digoxin 0.125 MG TAB PO SCH (08:40)
[2020-07-31] MEDS: predniSONE 5 MG TAB PO SCH (08:41)
[2020-07-31] MEDS: Carvedilol 6.25 MG TAB PO SCH ×2 (08:42→21:44)
[2020-07-31] MEDS: Furosemide 40 MG TAB PO SCH (08:42)
[2020-07-31] MEDS: Pramipexole Di-HCl 0.25 MG TAB PO SCH (09:43)
[2020-07-31] MEDS: Warfarin Sodium 5 MG TAB PO SCH (17:39)
[2020-07-31] MEDS ORDERED: traZODone HCl 50 MG TAB PO SCH (21:00)
[2020-07-31] MEDS: Atorvastatin Calcium 40 MG TAB PO SCH (21:44)
[2020-07-31] MEDS: Aspirin 81 mg Enteric Coated Tablet PO SCH (21:44)
[2020-07-31] MEDS ORDERED: Simethicone Chewable 80 MG TAB PO PRN (22:31)
[2020-07-31] MEDS: Prazosin HCl 1 MG CAP PO SCH (23:44)
[2020-08-01] MEDS: Levothyroxine 150 MCG TAB PO SCH (05:22)
[2020-08-01 05:47] LABS: INR-International Normal Ratio 2.6
[2020-08-01] MEDS: Prazosin HCl 1 MG CAP PO SCH (06:14)
[2020-08-01] MEDS: Mometasone 200 MCG/Formoterol 5 MCG 120 PUFF INHALER INH SCH (07:45)
[2020-08-01 08:42] VITALS: TEMP 98
[2020-08-01] MEDS: Pramipexole Di-HCl 0.25 MG TAB PO SCH (08:42)
[2020-08-01] MEDS: Furosemide 40 MG TAB PO SCH (08:43)
[2020-08-01] MEDS: Digoxin 0.125 MG TAB PO SCH (08:43)
[2020-08-01] MEDS: Carvedilol 6.25 MG TAB PO SCH (08:44)
[2020-08-01] MEDS: Senokot S 8.6-50 MG TAB PO SCH (08:44)
[2020-08-01] MEDS: Trospium 20 MG TAB PO SCH (08:45)
[2020-08-01] MEDS: predniSONE 5 MG TAB PO SCH (08:45)
[2020-08-01] MEDS: Docusate 100 MG CAP PO SCH (08:45)
[2020-08-01] MEDS: Polyethylene Glycol 3350 17 GM Packet PO SCH (08:45)
[2020-08-01 08:46] VITALS: BP 161/57
[2020-08-01] MEDS: Acetaminophen 325 MG TAB PO PRN (08:46)
[2020-08-01] MEDS: Warfarin Sodium 2.5 MG TAB PO SCH (17:33)
== END 2020-08-01 19:18 | DRG 291 ==
LOC: ERS 10:43 → ERHOLD 13:45 → IMCU/EMU 19:54 → T4-B 07-26 16:04
PROVIDERS: ADMIT Internal Medicine; ATTEND Hospitalist
PROC: 5A09357 Assistance with Respiratory Ventilation, Less than 24 Consecutive Hours, Continuous Positive Airway Pressure (ICD-10-PCS; principal; 2020-07-25)
DX: I13.0 Hypertensive heart and chronic kidney disease with heart failure and stage 1 through stage 4 chronic kidney disease, or unspecified chronic kidney disease (principal); J96.21 Acute and chronic respiratory failure with hypoxia; G93.41 Metabolic encephalopathy; I50.33 Acute on chronic diastolic (congestive) heart failure; J44.1 Chronic obstructive pulmonary disease with (acute) exacerbation; N39.0 Urinary tract infection, site not specified; I48.19 Other persistent atrial fibrillation; Z20.822 Contact with and (suspected) exposure to COVID-19; E66.01 Morbid (severe) obesity due to excess calories; M19.90 Unspecified osteoarthritis, unspecified site; E78.00 Pure hypercholesterolemia, unspecified; E83.52 Hypercalcemia; I25.10 Atherosclerotic heart disease of native coronary artery without angina pectoris; N18.30 Chronic kidney disease, stage 3 unspecified; E78.5 Hyperlipidemia, unspecified; E03.9 Hypothyroidism, unspecified; K59.00 Constipation, unspecified; E83.42 Hypomagnesemia; Z89.612 Acquired absence of left leg above knee; Z95.2 Presence of prosthetic heart valve; Z88.2 Allergy status to sulfonamides; Z88.5 Allergy status to narcotic agent; Z79.82 Long term (current) use of aspirin; Z79.899 Other long term (current) drug therapy; Z79.01 Long term (current) use of anticoagulants; Z90.710 Acquired absence of both cervix and uterus; Z90.49 Acquired absence of other specified parts of digestive tract; Z87.891 Personal history of nicotine dependence; Z85.53 Personal history of malignant neoplasm of renal pelvis; Z87.440 Personal history of urinary (tract) infections; Z85.72 Personal history of non-Hodgkin lymphomas; Z79.51 Long term (current) use of inhaled steroids; Z79.890 Hormone replacement therapy; Z90.5 Acquired absence of kidney; Z68.37 Body mass index [BMI] 37.0-37.9, adult; Z74.01 Bed confinement status; Z99.81 Dependence on supplemental oxygen
CPT/HCPCS: 0240U; 36415; 36600; 71045; 74177; 80048; 80053; 81003; 81015; 82553; 82805; 83605; 83735; 83880; 84484; 85025; 85610; 85730; 87040; 93005; 94640; 94660; 94760; 96374; 96375; J1940; J1956; J2920; J2930; J3475; J7050; J7512; J7620; Q9967

== ENCOUNTER 2020-08-17 11:42 | Emergency (ER) | payer MEDICARE ==
[2020-08-17 13:25] LABS: Clarity Hazy (Clear)
[2020-08-17 13:36] LABS: Specific Gravity, Urine 1.014 (1.002-1.036)
[2020-08-17 13:37] LABS: Bilirubin Unable to Interpret (Negative); Blood, Urine Unable to Interpret (Negative); Glucose, Urine (Dipstick) Unable to Interpret mg/dL (Negative); Ketone, Urine Unable to Interpret mg/dL (Negative); Leukocyte Unable to Interpret (Negative); Nitrite Unable to Interpret (Negative); Protein, Urine (Dipstick) Unable to Interpret mg/dL (Neg-Trace); Urobilinogen UNABLE TO INTERPRET mg/dL (Less than 2); pH, Urine 6.2 (5.0-9.0)
[2020-08-17 13:39] LABS: RBC/HPF Greater than 50 HPF (0-3); Renal Epithelial 0-3 HPF (None Seen); Transitional Epithelial 0-3 HPF (None Seen); WBC/HPF Greater than 50 HPF (0-3)
[2020-08-17 13:40] LABS: Bacteria/HPF 2+ HPF (None Seen)
== END 2020-08-17 15:28 | disposition home or self-care (01) ==
LOC: ERS 11:42
DX: R31.9 Hematuria, unspecified (principal); R30.0 Dysuria; J44.9 Chronic obstructive pulmonary disease, unspecified; E78.00 Pure hypercholesterolemia, unspecified; Z87.891 Personal history of nicotine dependence; Z79.899 Other long term (current) drug therapy
CPT/HCPCS: 81003; 81015; 87077; 87086; 87186

== ENCOUNTER 2020-08-18 12:12 | Emergency (ER) | payer MEDICARE ==
[2020-08-18 13:00] LABS: #Eosinphils 0.3 thou/uL (0.0-0.7); #Lymphocytes 0.8 thou/uL (1.20-3.40); #Monocytes 0.7 thou/uL (0.11-0.59); #Neutrophils 8.9 thou/uL (1.40-6.50); %Basophils 0.2 % (0.0-1.0); %Eosinophils 2.9 % (0.0-10.0); %Lymphocytes 7.2 % (21.0-51.0); %Monocytes 6.6 % (0.0-10.0); %Neutrophils 83.1 % (42.0-75.0); Hemoglobin 10.8 g/dL (12.0-16.0); Mean Corpuscular HGB CONC 33.5 g/dL (32.0-36.0); Mean Corpuscular Hemoglobin 29.8 pg (27.0-31.0); Mean Corpuscular Volume 88.8 fL (78.0-98.0); Mean Platelet Volume 8.2 fL (7.4-10.4); Platelet Count 249 thou/uL (130-400); RBC Distribution Width 17.8 % (11.5-14.5); Red Blood Cell (RBC) Count 3.61 mill/uL (4.20-5.40); White Blood Cell (WBC) Count 10.7 thou/uL (4.8-10.8)
[2020-08-18 13:39] LABS: ALT (SGPT) 20 U/L (8-55); AST (SGOT) 17 U/L (5-34); Albumin 3.4 g/dL (3.4-4.8); Alkaline Phosphatase 105 U/L (40-110); Anion Gap 14 mmol/L (10-20); BUN (Urea Nitrogen) 22 mg/dL (9.8-20.1); Bilirubin, Total 0.4 mg/dL (0.2-1.2); Calc. Creatinine Clearance 0 mL/min (70-130); Calcium 9.2 mg/dL (7.8-10.44); Carbon Dioxide 26 mmol/L (23-31); Chloride 96 mmol/L (98-107); Globulin 2.3 g/dL (2.4-3.5); Glucose 149 mg/dL (83-110); Potassium 4.7 mmol/L (3.5-5.1); Protein, Total 5.7 g/dL (5.8-8.1); Sodium 131 mmol/L (136-145)
[2020-08-18] MEDS ORDERED: cefTRIAXone\\ROCEPHIN 1 GM VIAL ONE (14:17)
[2020-08-18] MEDS ORDERED: Ondansetron PF 4 MG/2 ML Vial ONE ×2 (14:22→14:24)
[2020-08-18] MEDS ORDERED: Morphine 4 MG/ML VIAL ONE (14:22)
[2020-08-18] MEDS ORDERED: Fentanyl 100 MCG/2 ML VIAL ONE (14:24)
[2020-08-18 14:35] LABS: Bilirubin Negative (Negative); Blood, Urine 2+ (Negative); Clarity Turbid (Clear); Glucose, Urine (Dipstick) Normal (Negative); Ketone, Urine Negative (Negative); Leukocyte 500 Leu/uL (Negative); Nitrite Negative (Negative); Protein, Urine (Dipstick) 30 mg/dL (Neg-Trace); Specific Gravity, Urine 1.018 (1.002-1.036); Squamous Epithelial None Seen HPF (0-3); Urobilinogen Normal mg/dL (Less than 2); WBC/HPF Greater than 50 HPF (0-3)
[2020-08-18 14:36] LABS: Bacteria/HPF 1+ HPF (None Seen)
== END 2020-08-18 18:32 | disposition home or self-care (01) ==
LOC: ERS 12:12
DX: N39.0 Urinary tract infection, site not specified (principal); E78.00 Pure hypercholesterolemia, unspecified; J44.9 Chronic obstructive pulmonary disease, unspecified; I48.91 Unspecified atrial fibrillation; M19.90 Unspecified osteoarthritis, unspecified site; Z87.891 Personal history of nicotine dependence; Z79.01 Long term (current) use of anticoagulants; Z79.899 Other long term (current) drug therapy; Z79.82 Long term (current) use of aspirin
CPT/HCPCS: 36415; 74176; 80053; 81003; 81015; 83605; 85025; 87040; 87086; 93005; 96365; 96375; J0696; J2270; J2405; J3010

== ENCOUNTER 2020-08-25 17:01 | Emergency (ER) | payer MEDICARE | END 2020-08-25 20:40 | LOC: ERS 17:01 | DX: S09.90XA Unspecified injury of head, initial encounter (principal); S70.01XA Contusion of right hip, initial encounter; R60.0 Localized edema; I34.1 Nonrheumatic mitral (valve) prolapse; M19.90 Unspecified osteoarthritis, unspecified site; E78.00 Pure hypercholesterolemia, unspecified; J44.9 Chronic obstructive pulmonary disease, unspecified; Z87.891 Personal history of nicotine dependence; Z85.528 Personal history of other malignant neoplasm of kidney; Z85.028 Personal history of other malignant neoplasm of stomach; W05.0XXA Fall from non-moving wheelchair, initial encounter | CPT/HCPCS: 70450; 72170 ==